=== PATIENT | female | born 1960 | race Caucasian/White ===

== ENCOUNTER 2017-11-17 14:27 | Observation (INO) | payer OTHER ==
[2017-11-17] MEDS ORDERED: THIAMINE 200 MG/2 ML INJ ONE (16:01)
[2017-11-17] MEDS ORDERED: FAMOTIDINE 20 MG/2 ML VIAL IV ONE (16:01)
[2017-11-17] MEDS ORDERED: FOLIC ACID 5 MG/ML VIAL ONE (16:02)
--- NOTE | 2017-11-17 16:08 | EKG ---
Test Date: 2017-11-17 Test Time: 15:30:39 [employer] Driver: NIKO MEASUREMENT RESULTS: Intervals: Rate: 66 MA: 168 QRSD: 102 QT: 466 QTc: 488 Butler: P: 29 MA: 168 QRS: 3 T: 48 INTERPRETIVE STATEMENTS: Normal sinus rhythm Possible Inferior infarct, age undetermined T wave abnormality, consider anterior ischemia Abnormal ECG Compared to ECG 03/22/2015 17:49:21 T-wave abnormality now present Possible ischemia now present Sinus arrhythmia no longer present Myocardial infarct finding still present Electronically Signed On 11-17-17 16:07:44 CDT by Claudy Leon
[2017-11-17 16:11] LABS: Absolute Lymphocytes (CBC) 1.4 K/uL (0.7-4.9); Absolute Monocytes 0.5 K/uL (0.1-1.3); Absolute Neutrophil 2.5 K/uL (1.8-8.0); Basophils % 1.3 % (0-1.3); Eosinophils % 2.6 % (0-4.4); Hematocrit 51.3 % (36.0-45.0); Lymphocytes % 30.1 % (15.3-44.8); MCH 32.5 pg (27.0-35.0); MCV 95.2 fL (80-100); MPV 9.1 fL (7.6-11.3); Monocytes % 11.6 % (3.3-12.3); RBC Red Blood Cell Count 5.39 M/uL (3.86-4.86)
[2017-11-17 16:18] LABS: Protime INR 1.07
--- NOTE | 2017-11-17 16:21 | RAD REPORT ---
EXAM DESCRIPTION: CT - Head Brain Wo Cont - 11/17/2017 4:14 pm CLINICAL HISTORY: Dizziness COMPARISON: 2013 TECHNIQUE: Computed axial tomography of the head was obtained. IV contrast was not requested. All CT scans are performed using dose optimization technique as appropriate and may include automated exposure control or mA/KV adjustment according to patient size. FINDINGS: An intracranial bleed is not seen . The ventricles are normal in caliber. No extra-axial fluid collection is noted. Fluid within the sinuses/ mastoids is not seen. IMPRESSION: No acute intracranial abnormality is seen. If patient's symptoms persist MRI of the bra in would be recommended.
--- NOTE | 2017-11-17 16:32 | RAD REPORT ---
EXAM DESCRIPTION: Niharika Single View11/17/2017 4:24 pm CLINICAL HISTORY: Cough COMPARISON: 2014 FINDINGS: The lungs appear clear of acute infiltrate. The heart is normal size IMPRESSION: No acute abnormalities displayed
[2017-11-17 16:47] LABS: Bicarbonate 24 mEq/L (21-31); CKMB Creatine Kinase MB 4.7 ng/ml (0.3-4.0); Lipase 41 U/L (22-51); Potassium 3.7 mEq/L (3.6-5.0); Sodium Level 135 mEq/L (135-145)
[2017-11-17 16:53] LABS: ALT/SGPT 57 IU/L (10-60); AST/SGOT 85 IU/L (10-42); Albumin 3.7 g/dL (3.2-5.5); Alkaline Phosphatase 71 IU/L (42-121); BUN Blood Urea Nitrogen 9 mg/dL (6-20); Bilirubin Direct 0.4 mg/dL (0-0.2); Bilirubin Total 1.6 mg/dL (0.3-1.2); Creatine Phosphokinase 249 IU/L (22-269); Magnesium 1.9 mg/dL (1.8-2.5); Protein, Total 8.4 g/dL (6.0-8.3)
[2017-11-17 16:59] LABS: Glucose Level 86 mg/dL (65-120)
[2017-11-17 17:00] LABS: Alcohol Serum/Plasma < 10 mg/dl
[2017-11-17] MEDS ORDERED: LACTULOSE 20 GM/30 ML UCUP ONE (17:39)
[2017-11-17 18:00] LABS: Urine Blood TRACE (NEG); Urine Glucose NEGATIVE (NEG); Urine Protein NEGATIVE (NEG); Urine Specific Gravity <1.005 (1.005-1.030); Urine pH 6.5 (5.0-7.0)
[2017-11-17] MEDS ORDERED: MORPHINE 4 MG/ML SYR ONE (18:01)
[2017-11-17] MEDS ORDERED: ONDANSETRON 4 MG/2 ML VIAL ONE (18:02)
[2017-11-17] MEDS ORDERED: LORazepam 2 MG/ML VIAL ONE (18:03)
[2017-11-17 18:05] LABS: Barbiturates NEGATIVE (NEGATIVE); Benzodiazepines NEGATIVE (NEGATIVE); Cocaine POSITIVE (NEGATIVE); METHAMPHETAM NEGATIVE (NEGATIVE); Opiates NEGATIVE (NEGATIVE); Phencyclidine NEGATIVE (NEGATIVE); THC Cannibis NEGATIVE (NEGATIVE)
[2017-11-17] MEDS ORDERED: ASPIRIN 81 MG CHEWABLE TABLET ONE (18:51)
[2017-11-17] MEDS ORDERED: CEFTRIAXONE/SWI 1gm 1 GM/10 ML SYR ONE (18:51)
--- NOTE | 2017-11-17 19:06 | ER ---
Nurse's Notes [facility] Name: Maisha Leo Age: 57 yrs Sex: Female : 1960 Arrival Date: 11/17/2017 Time: 14:51 Bed 7 Private MD: Diagnosis: Weakness;Abnormal electrocardiogram [ECG] [EKG];Unspecified cirrhosis of liver;Cocaine abuse Presentation: 11/17 15:12 Presenting complaint: Patient states: Dizziness since 1400 today. Hx fibromyalgia, CVA hb +left sided weakness and left facial droop. Transition of care: patient was not received from another setting of care. Onset of symptoms. Risk Assessment: Do you want to hurt yourself or someone else? Patient reports no desire to harm self or others. Care prior to arrival: None. 15:12 Method Of Arrival: Wheelchair hb 15:12 Acuity: ARTURO 3 hb 15:42 Initial Sepsis Screen: Does the patient meet any 2 criteria? No. Patient's initial tw2 sepsis screen is negative. Does the patient have a suspected source of infection? No. Patient's initial sepsis screen is negative. Historical: - Allergies: 15:14 PENICILLINS; hb - Home Meds: 15:39 lisinopril 20 mg oral tab once daily [Active]; Keppra 1,000 mg Oral tab 1 tab every 12 sg hours [Active]; levothyroxine oral [Active]; gabapentin oral oral [Active]; - PMHx: 15:36 CVA; Left sided weakness; Hypertension; Fibromyalgia; sg 15:39 Seizures; Myocardial infarction; Hypothyroidism; sg - Immunization history:: Adult Immunizations up to date. - Social history:: Smoking status: Patient uses tobacco products, smokes one pack cigarettes per day. - Ebola Screening: : No symptoms or risks identified at this time. - Family history:: not pertinent. Screenin:25 Abuse screen: Denies threats or abuse. Denies injuries from another. Nutritional sg screening: No deficits noted. Tuberculosis screening: No symptoms or risk factors identified. Never had TB. The patient has not been NPO before screening. The patient is alert, able to follow commands. The patient does not exhibit slurred or garbled speech The patient is not exhibiting difficulty speaking. The patient does not exhibit difficulty understanding words. The patient is able to swallow own secretions with no drooling or need for suction. Patient tolerated one teaspoon of water. No drooling, immediate coughing, gurgling, or clearing of the throat was noted. The patient tolerated 90mL of water. No drooling, immediate coughing, gurgling, or clearing of the throat was noted. The patient passed the bedside swallow screening. Oral medications may be given as ordered. Contact Physician for further diet orders. Fall Risk None identified. Assessment: 15:25 General: Appears in no apparent distress. comfortable, well groomed, well developed, sg well nourished, Behavior is calm, cooperative, appropriate for age. Pain: Denies pain. Neuro: Reports dizziness, since 1000 this morning, worsened at 1400 today chronic left sided weakness from previous CVA, denies worsening. . Denies weakness blurred vision headache. Cardiovascular: Heart tones S1 S2 present Capillary refill is brisk in bilateral fingers Patient's skin is warm and dry. Chest pain is denied. Respiratory: Airway is patent Respiratory effort is even, unlabored, Respiratory pattern is regular, symmetrical, Breath sounds are clear. GI: No signs and/or symptoms were reported involving the gastrointestinal system. : No signs and/or symptoms were reported regarding the genitourinary system. EENT: No signs and/or symptoms were reported regarding the EENT system. EENT: Reports broken tooth left upper side of mouth this morning while biting into an icecream bar. Derm: Skin is pink, warm \\T\\ dry. Musculoskeletal: Circulation, motion, and sensation intact. Range of motion: intact in all extremities, Reports weakness in left arm and left leg. 16:19 Reassessment: Patient appears in no apparent distress at this time. No changes from tw2 previously documented assessment. Patient and/or family updated on plan of care and expected duration. Pain level reassessed. Patient is alert, oriented x 3, equal unlabored respirations, skin warm/dry/pink. 17:29 Reassessment: Patient appears in no apparent distress at this time. No changes from tw2 previously documented assessment. Patient and/or family updated on plan of care and expected duration. Pain level reassessed. Patient is alert, oriented x 3, equal unlabored respirations, skin warm/dry/pink. 18:00 Reassessment: pt states "im going to need some ativan before i can go to MRI, they gave tw2 it to me the last 2 times i had one", provider notified. 18:08 Reassessment: pt taken to MRI at this time via stretcher. tw2 18:29 Reassessment: pt in MRI at this time, not available for VS or medications at this time. tw2 20:09 Reassessment: dr meyer at bedside examinng the patient. mg2 20:45 Reassessment: nurse Rekha said the recieiving nurse is still with the patient. she will mg2 call back. Vital Signs: 15:11 BP 113 / 82; Pulse 65; Resp 18; Temp 97.8; Pulse Ox 95% on R/A; Weight 81.65 kg; Height hb 5 ft. 5 in. (165.10 cm); Pain 10/10; 15:39 BP 97 / 71; Pulse 67 MON; Resp 17 S; Pulse Ox 96% on R/A; Pain 10/10; sg 16:20 BP 140 / 93; Pulse 70; Resp 18; Pulse Ox 96% on R/A; tw2 17:29 BP 131 / 99; Pulse 72; Resp 19; Pulse Ox 96% on R/A; tw2 18:57 BP 132 / 87; Pulse 69; Resp 17; Pulse Ox 95% on R/A; Pain 6/10; tw2 20:08 BP 111 / 75; Pulse 73; Resp 18; Pulse Ox 95% on R/A; Pain 0/10; cc 21:19 BP 121 / 82; Pulse 70; Resp 18; Temp 97.8; Pulse Ox 100% on R/A; Pain 0/10; mg2 15:11 Body Mass Index 29.95 (81.65 kg, 165.10 cm) hb 15:39 reports chornic entire body pain, d/t out of gabapentin for several days sg ED Course: 14:51 Patient arrived in ED. kk3 15:14 Triage completed. hb 15:14 Arm band placed on left wrist. hb 15:24 Mejia Juares MD is Attending Physician. godfrey 15:25 Patient has correct armband on for positive identification. Placed in gown. Bed in low sg position. Call light in reach. Side rails up X2. bus monitor on. Pulse ox on. NIBP on. Warm blanket given. Head of bed elevated. 15:25 Initial lab(s) drawn, by me, sent to lab. Inserted saline lock: 20 gauge in right sg antecubital area, using aseptic technique. Blood collected. 15:39 EKG done, by mold tooling technician. reviewed by Mejia Juares MD. sm3 15:42 Vane Hernández RN is Primary Nurse. tw2 16:[address] nj 16:13 CT Head Brain wo Cont In Process Unspecified. EDMS 16:13 CT completed. Patient tolerated procedure well. Patient moved back from CT. nj 16:23 X-ray completed. Portable x-ray completed in exam room. Patient tolerated procedure nj well. 16:24 XRAY Chest (1 view) In Process Unspecified. EDMS 18:00 Patient moved to MRI via stretcher. ka 18:38 MRI completed. Patient tolerated well. Patient moved back from MRI. ka 18:39 Brain Wo Cont MRI In Process Unspecified. EDMS 19:03 Vanda Weathers MD is Hospitalizing Provider. [facility] 19:04 Report given to AZIZA Salmon. tw2 21:21 No provider procedures requiring assistance completed. Patient admitted, IV remains in mg2 place. Administered Medications: 16:00 Drug: Pepcid 20 mg Route: IVP; Site: right antecubital; tw2 17:36 Follow up: Response: No adverse reaction tw2 16:02 Drug: Thiamine 100 mg Route: IV; Rate: bolus; Site: right antecubital; tw2 16:05 Drug: foLIC Acid 1 mg Route: IVPB; Site: right antecubital; tw2 17:45 Drug: Lactulose 30 grams Volume: 45 ml; Route: PO; tw2 18:07 Follow up: Response: No adverse reaction tw2 18:00 Drug: Zofran 4 mg Route: IVP; Site: right antecubital; tw2 18:56 Follow up: Response: No adverse reaction tw2 18:02 Drug: morphine 4 mg Route: IVP; Site: right antecubital; tw2 18:57 Follow up: Response: No adverse reaction; Pain is decreased tw2 18:06 Drug: Ativan 1 mg Route: IVP; Site: right antecubital; tw2 18:57 Follow up: Response: No adverse reaction tw2 18:50 Drug: Rocephin - (cefTRIAXone) 1 grams {Note: IVP available only from pharmacy, tw2 provider aware.} Route: IVPB; Infused Over: 5 mins; Site: right antecubital; 18:55 Follow up: Response: No adverse reaction; IV Status: Completed infusion tw2 18:50 Drug: Aspirin 162 mg Route: PO; tw2 18:57 Follow up: Response: No adverse reaction tw2 Point of Care Testing: Blood Glucose: 15:20 Blood Glucose: 73 mg/dL; hb Ranges: Outcome: 19:05 Decision to Hospitalize by Provider. godfrey 21:19 Admitted to Tele accompanied by tech, via wheelchair, room 417, with chart, Report mg2 called to Rekha 21:19 Condition: stable 21:19 Instructed on the need for admit, Demonstrated understanding of instructions, need for admission 21:27 Patient left the ED. [facility] [place] Signatures: Dispatcher [employer] EDMS Adalberto Lindsay, Mejia Arriaga RN, MD MD cha Christian, Chelsea cc Aguilera, Katelyn ka Baxter, Heather, RN RN Vane Hernández RN RN tw2 Lacey Avalos 3 Lucas Bui Michele, RN RN mg2 Lisa Tejeda 3
--- NOTE | 2017-11-17 19:06 | EDPHYS ---
Physician Documentation [facility] Name: Maisha Leo Age: 57 yrs Sex: Female : 1960 Arrival Date: 11/17/2017 Time: 14:51 Bed 7 Private MD: ED Physician Mejia Juares HPI: 11/17 15:56 This 57 yrs old Female presents to ER via Wheelchair with complaints of godfrey Dizziness, General Weakness. 15:56 The patient presents with dizziness, feeling faint, generalized weakness. Onset: The godfrey symptoms/episode began/occurred 1 week(s) ago. Context: occurred at home. Modifying factors: The symptoms are alleviated by nothing, the symptoms are aggravated by nothing. Associated signs and symptoms: The patient has no apparent associated signs or symptoms. Severity of symptoms: At their worst the symptoms were mild in the emergency department the symptoms are unchanged. Patient's baseline: Neuro: alert and fully oriented. The patient has experienced similar episodes in the past, a few times. Historical: - Allergies: 15:14 PENICILLINS; hb - Home Meds: 15:39 lisinopril 20 mg oral tab once daily [Active]; Keppra 1,000 mg Oral tab 1 tab every 12 sg hours [Active]; levothyroxine oral [Active]; gabapentin oral oral [Active]; - PMHx: 15:36 CVA; Left sided weakness; Hypertension; Fibromyalgia; sg 15:39 Seizures; Myocardial infarction; Hypothyroidism; sg - Immunization history:: Adult Immunizations up to date. - Social history:: Smoking status: Patient uses tobacco products, smokes one pack cigarettes per day. - Ebola Screening: : No symptoms or risks identified at this time. - Family history:: not pertinent. ROS: 15:56 Constitutional: Negative for fever, chills, and weight loss, Eyes: Negative for injury, godfrey pain, redness, and discharge, ENT: Negative for injury, pain, and discharge, Neck: Negative for injury, pain, and swelling, Cardiovascular: Negative for chest pain, palpitations, and edema, Respiratory: Negative for shortness of breath, cough, wheezing, and pleuritic chest pain, Abdomen/GI: Negative for abdominal pain, nausea, vomiting, diarrhea, and constipation, Back: Negative for injury and pain, : Negative for injury, bleeding, discharge, and swelling, MS/Extremity: Negative for injury and deformity, Skin: Negative for injury, rash, and discoloration, Psych: Negative for depression, anxiety, suicide ideation, homicidal ideation, and hallucinations, Allergy/Immunology: Negative for hives, rash, and allergies, Endocrine: Negative for neck swelling, polydipsia, polyuria, polyphagia, and marked weight changes, Hematologic/Lymphatic: Negative for swollen nodes, abnormal bleeding, and unusual bruising. 15:56 Neuro: Positive for dizziness, gait disturbance, weakness. Exam: 15:56 Constitutional: This is a well developed, well nourished patient who is awake, alert, godfrey and in no acute distress. Head/Face: Normocephalic, atraumatic. Eyes: Pupils equal round and reactive to light, extra-ocular motions intact. Lids and lashes normal. Conjunctiva and sclera are non-icteric and not injected. Cornea within normal limits. Periorbital areas with no swelling, redness, or edema. ENT: Nares patent. No nasal discharge, no septal abnormalities noted. Tympanic membranes are normal and external auditory canals are clear. Oropharynx with no redness, swelling, or masses, exudates, or evidence of obstruction, uvula midline. Mucous membranes moist. Neck: Trachea midline, no thyromegaly or masses palpated, and no cervical lymphadenopathy. Supple, full range of motion without nuchal rigidity, or vertebral point tenderness. No Meningismus. Chest/axilla: Normal chest wall appearance and motion. Nontender with no deformity. No lesions are appreciated. Cardiovascular: Regular rate and rhythm with a normal S1 and S2. No gallops, murmurs, or rubs. Normal PMI, no JVD. No pulse deficits. Respiratory: Lungs have equal breath sounds bilaterally, clear to auscultation and percussion. No rales, rhonchi or wheezes noted. No increased work of breathing, no retractions or nasal flaring. Abdomen/GI: Soft, non-tender, with normal bowel sounds. No distension or tympany. No guarding or rebound. No evidence of tenderness throughout. Back: No spinal tenderness. No costovertebral tenderness. Full range of motion. Female : Normal external genitalia. Skin: Warm, dry with normal turgor. Normal color with no rashes, no lesions, and no evidence of cellulitis. 17:34 Abdomen/GI: Rectal exam: rectal tone normal, Stool: normal, guaiac negative, [facility] hemorrhoid(s), are not appreciated, mass, is not appreciated, swelling, is not appreciated, tenderness, is not appreciated. Vital Signs: 15:11 BP 113 / 82; Pulse 65; Resp 18; Temp 97.8; Pulse Ox 95% on R/A; Weight 81.65 kg; Height hb 5 ft. 5 in. (165.10 cm); Pain 10/10; 15:39 BP 97 / 71; Pulse 67 MON; Resp 17 S; Pulse Ox 96% on R/A; Pain 10/10; sg 16:20 BP 140 / 93; Pulse 70; Resp 18; Pulse Ox 96% on R/A; tw2 17:29 BP 131 / 99; Pulse 72; Resp 19; Pulse Ox 96% on R/A; tw2 18:57 BP 132 / 87; Pulse 69; Resp 17; Pulse Ox 95% on R/A; Pain 6/10; tw2 20:08 BP 111 / 75; Pulse 73; Resp 18; Pulse Ox 95% on R/A; Pain 0/10; cc 21:19 BP 121 / 82; Pulse 70; Resp 18; Temp 97.8; Pulse Ox 100% on R/A; Pain 0/10; mg2 15:11 Body Mass Index 29.95 (81.65 kg, 165.10 cm) hb 15:39 reports chornic entire body pain, d/t out of gabapentin for several days sg MDM: 15:24 Patient medically screened. godfrey 15:58 Data reviewed: vital signs, nurses notes, lab test result(s), EKG, radiologic studies, [facility] CT scan, MRI, ultrasound. 11/17 15:23 Order name: Glucose, Ancillary Testing; Complete Time: 17:04 EDWA 11/17 15:54 Order name: Basic Metabolic Panel [facility] 11/17 15:54 Order name: BNP [facility] 11/17 15:54 Order name: CBC with Diff [facility] 11/17 15:54 Order name: Ckmb [facility] 11/17 15:54 Order name: CPK [facility] 11/17 15:54 Order name: LFT's [facility] 11/17 15:54 Order name: Magnesium [facility] 11/17 15:54 Order name: PT-INR; Complete Time: 17:04 [facility] 11/17 15:54 Order name: Ptt, Activated; Complete Time: 17:04 [facility] 11/17 15:54 Order name: Troponin (emerg Dept Use Only); Complete Time: 17:04 [facility] 11/17 15:54 Order name: Lipase; Complete Time: 17:04 [facility] 11/17 15:54 Order name: Acetaminophen; Complete Time: 17:04 [facility] 11/17 15:54 Order name: ETOH Level; Complete Time: 17:04 [facility] 11/17 15:54 Order name: XRAY Chest (1 view); Complete Time: 17:04 [facility] 11/17 15:54 Order name: CT Head Brain wo Cont; Complete Time: 17:04 [facility] 11/17 15:54 Order name: Salicylate; Complete Time: 17:04 [facility] 11/17 15:54 Order name: Urine Drug Screen; Complete Time: 19:01 [facility] 11/17 15:54 Order name: Brain Wo Cont MRI [facility] 11/17 15:55 Order name: AMMONIA; Complete Time: 17:04 [facility] 11/17 15:55 Order name: Basic Metabolic Panel; Complete Time: 17:04 [facility] 11/17 15:55 Order name: BNP B-Type Natriuretic Peptide; Complete Time: 17:33 [facility] 11/17 15:55 Order name: CBC with Automated Diff; Complete Time: 17:33 [facility] 11/17 15:55 Order name: CKMB Creatine Kinase MB; Complete Time: 17:04 [facility] 11/17 15:55 Order name: Creatine Phosphokinase; Complete Time: 17:04 [facility] 11/17 15:55 Order name: Liver (Hepatic) Function; Complete Time: 17:04 [facility] 11/17 15:55 Order name: Magnesium; Complete Time: 17:04 [facility] 11/17 17:28 Order name: Guiac; Complete Time: 18:16 11/17 17:54 Order name: Urine Dipstick--Ancillary (enter results); Complete Time: 18:12 11/17 18:15 Order name: Urine Culture [facility] 11/17 15:54 Order name: EKG; Complete Time: 15:55 [facility] 11/17 15:54 Order name: Cardiac monitoring; Complete Time: 15:56 [facility] 11/17 15:54 Order name: EKG - Nurse/Tech; Complete Time: 15:56 [facility] 11/17 15:54 Order name: IV Saline Lock; Complete Time: 15:56 [facility] 11/17 15:54 Order name: Labs collected and sent; Complete Time: 15:56 [facility] 11/17 15:54 Order name: O2 Per Protocol; Complete Time: 15:56 [facility] 11/17 15:54 Order name: O2 Sat Monitoring; Complete Time: 15:56 [facility] 11/17 15:54 Order name: Urine Dipstick-Ancillary (obtain specimen); Complete Time: 17:57 [facility] Administered Medications: 16:00 Drug: Pepcid 20 mg Route: IVP; Site: right antecubital; tw2 17:36 Follow up: Response: No adverse reaction tw2 16:02 Drug: Thiamine 100 mg Route: IV; Rate: bolus; Site: right antecubital; tw2 16:05 Drug: foLIC Acid 1 mg Route: IVPB; Site: right antecubital; tw2 17:45 Drug: Lactulose 30 grams Volume: 45 ml; Route: PO; tw2 18:07 Follow up: Response: No adverse reaction tw2 18:00 Drug: Zofran 4 mg Route: IVP; Site: right antecubital; tw2 18:56 Follow up: Response: No adverse reaction tw2 18:02 Drug: morphine 4 mg Route: IVP; Site: right antecubital; tw2 18:57 Follow up: Response: No adverse reaction; Pain is decreased tw2 18:06 Drug: Ativan 1 mg Route: IVP; Site: right antecubital; tw2 18:57 Follow up: Response: No adverse reaction tw2 18:50 Drug: Rocephin - (cefTRIAXone) 1 grams {Note: IVP available only from pharmacy, tw2 provider aware.} Route: IVPB; Infused Over: 5 mins; Site: right antecubital; 18:55 Follow up: Response: No adverse reaction; IV Status: Completed infusion tw2 18:50 Drug: Aspirin 162 mg Route: PO; tw2 18:57 Follow up: Response: No adverse reaction tw2 Point of Care Testing: Blood Glucose: 15:20 Blood Glucose: 73 mg/dL; hb Ranges: Critical Glucose Levels:Adult <50 mg/dl or >400 mg/dl <40 mg/dl or >180 mg/dl Disposition: 11/17/17 19:05 Hospitalization ordered by Vanda Weathers for Inpatient Admission. Preliminary diagnosis are Weakness, Abnormal electrocardiogram [ECG] [EKG], Unspecified cirrhosis of liver, Cocaine abuse. - Bed requested for Telemetry/MedSurg (Inpatient). - Status is Inpatient Admission. mg2 - Condition is Fair. - Problem is new. - Symptoms have improved. UTI on Admission? Yes Signatures: Dispatcher [employer] EDMS Rekha Call RN RN dw Adalberto Lindsay RN RN sg Mejia Juares MD MD [facility] Yvette Jiménez RN RN Vane Hernández RN RN tw2 Mychal Gunderson RN RN mg2 Corrections: (The following items were deleted from the chart) 19:37 19:05 Hospitalization Ordered by Vanda Weathers MD for Inpatient Admission. Preliminary diagnosis is Weakness; Abnormal electrocardiogram [ECG] [EKG]; Unspecified cirrhosis of liver; Cocaine abuse. Bed requested for Telemetry/MedSurg (Inpatient). Status is Inpatient Admission. Condition is Fair. Problem is new. Symptoms have improved. UTI on Admission? Yes. [facility] 21:27 19:37 11/17/2017 19:05 Hospitalization Ordered by Vanda Weathers MD for Inpatient mg2 Admission. Preliminary diagnosis is Weakness; Abnormal electrocardiogram [ECG] [EKG]; Unspecified cirrhosis of liver; Cocaine abuse. Bed requested for Telemetry/MedSurg (Inpatient). Status is Inpatient Admission. Condition is Fair. Problem is new. Symptoms have improved. UTI on Admission? Yes. dw
--- NOTE | 2017-11-17 20:03 | RAD REPORT ---
EXAM DESCRIPTION: MRI - Brain Wo Cont - 11/17/2017 6:42 pm CLINICAL HISTORY: Left-sided weakness, facial droop COMPARISON: CT head November 17 TECHNIQUE: Sagittal T1-weighted images were obtained along with axial PD, heavily T2-weighted and T2 -FLAIR images. Axial DWI and ADC mapping sequences were also obtained along with coronal heavily T2-w eighted images. FINDINGS: No intracranial hemorrhage, mass or acute infarction. There is no edema or shift of midlin e structures. No extra-axial fluid collections. Hurst-matter/white matter junction is preserved. Signa l voids are seen as a normal finding in the major intracranial vessels. Ventricles are normal. Minima l volume loss. Mild chronic ischemic change present. Migraine headache, vasculitis or demyelinization etiologies for the white matter signal abnormalities are not suspected. No globe or orbital content abnormality. Mastoid air cells and paranasal sinuses are clear. IMPRESSION: No infarction or other acute intracranial finding. Mild chronic ischemic change in the cerebral white matter.
--- NOTE | 2017-11-17 20:25 | P.HP ---
Certification for Inpatient Patient admitted to: Observation With expected LOS: <2 Midnights Practitioner: I am a practitioner with admitting privileges, knowledge of patient current condition, hospital course, and medical plan of care. Services: Services provided to patient in accordance with Admission requirements found in Title 42 Section 412.3 of the Code of Federal Regulations Patient History Date of Service: 11/17/17 Reason for admission: dizziness History of Present Illness: Ms Leo is a 57 years old woman with history of liver cirrhosis secondary to ETOH abuse and probably Hep C, tobacco abuse, seizure disorder, CVA, with residual 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 Her symptoms started last night, but today got worse. She was able to talk to her daughter, who lives in [place]. On the phone the patient had slurred speech, and her daughter called 911. EMS then arrived home and transferred the patient to ED. CT head shows no acute abnormalities, MRI brain report is pending. Lab work is remarkable for elevated ammonia level 107. She states that has not been taking lactulose lately. Toxicology screen was positive for cocaine, son said that she has been used it in the past, she is currently drinking 12 pack beers daily. No history of fever or chills. Allergies Penicillins Allergy (Intermediate, Verified 11/06/16 17:31) Anaphylaxis Home Medications: Levetiracetam [Keppra] 1 tab PO BID 6AM 6PM 02/09/14 Hydrocodone 5/APAP 325 [[place] 5/325*] 1 tab PO TIDP PRN #30 tab 02/11/14 Lisinopril [Prinivil*] 20 mg PO DAILY #30 tab 02/11/14 predniSONE [Prednisone*] 20 mg PO BID #30 tab 02/11/14 Aspirin [Aspir-Low] 1 tab PO DAILY 11/18/16 Gabapentin [Gralise] 900 mg PO TID 11/18/16 - Past Medical/Surgical History Diabetic: No -: Hypothyroidism -: HTN -: Anxiety -: Seizures -: HX NH x2 -: HX CVA x2 -: Osteoarthritis -: Hepatitis C -: liver cirrhosis -: Geovanny's paralysis Past Surgical History: Reviewed- Non-Contributory - Family History Family History: Reviewed- Non-Contributory - Social History Smoking Status: Heavy Tobacco smoker (>10 cigarettes/day) Counseled patient to stop smoking for: less than 10 minutes Smoking therapy provided: Yes Patient receptive to therapy: No Alcohol use: Yes CD- Drugs: No Caffeine use: Yes Place of Residence: Home Review of Systems 10-point ROS is otherwise unremarkable Physical Examination - Physical Exam General: Alert, In no apparent distress HEENT: Atraumatic, PERRLA, Mucous membr. moist/pink, EOMI, Sclerae nonicteric Neck: Supple, 2+ carotid pulse no bruit, No LAD, Without JVD or thyroid abnormality Respiratory: Clear to auscultation bilaterally, Normal air movement Cardiovascular: Regular rate/rhythm, Normal S1 S2 Gastrointestinal: Normal bowel sounds, No tenderness Musculoskeletal: No tenderness Integumentary: No rashes Neurological: Normal tone, Normal affect, Other (left facial drop, according to the family its worse than usual), Abnormal speech (slurred) Lymphatics: No axilla or inguinal lymphadenopathy - Studies Laboratory Data (last 24 hrs) 11/17/17 15:40: PT 12.6 H, INR 1.07, APTT 36.7 11/17/17 15:40: WBC 5.0, Hgb 17.5 H, Hct 51.3 H, Plt Count 155 11/17/17 15:40: B-Natriuretic Peptide 121 H 11/17/17 15:40: Sodium 135, Potassium 3.7, BUN 9, Creatinine 0.73, Glucose 86, Magnesium 1.9, Total Bilirubin 1.6 H, AST 85 H, ALT 57, Alkaline Phosphatase 71 , Lipase 41 Microbiology Data (last 24 hrs): 11/17/17 17:28 Stool Occult Blood - Final Assessment and Plan - Problems (Diagnosis) (1) Hepatic encephalopathy Current Visit: Yes Status: Acute (2) History of CVA (cerebrovascular accident) Current Visit: No Status: Acute (3) Hypothyroidism Current Visit: No Status: Acute Qualifiers: Hypothyroidism type: unspecified Qualified Code(s): E03.9 - Hypothyroidism , unspecified (4) Weakness generalized Current Visit: No Status: Acute (5) Cocaine abuse Current Visit: Yes Status: Acute (6) Alcohol abuse Current Visit: Yes Status: Acute (7) Tobacco abuse Current Visit: Yes Status: Acute - Plan #1 Hepatic encephalopathy: Will continue with lactulose by mouth. Continue awaiting Brain MRI report to R/O acute CVA superimpose. #2 seizure disorder: will order seizure precautions. Resume medication once verified. #3 alcohol abuse: will continue banana bag, watch for withdrawal symptoms. #4 tobacco abuse: therapy offered, she refused. - Advance Directives Does patient have a Living Will: No Does patient have a Durable POA for Healthcare: No - Code Status/Comfort Care Code Status Assessed: Yes Code Status: Full Code
[2017-11-17] MEDS ORDERED: ONDANSETRON 4 MG/2 ML VIAL IV PRN (21:48)
[2017-11-17] MEDS ORDERED: ACETAMINOPHEN 500 MG TAB PO PRN (21:48)
[2017-11-17] MEDS ORDERED: POTASSIUM 25 MEQ EFFERV TAB PO ONE (22:00)
[2017-11-18 00:58] VITALS: O2SAT 100
[2017-11-18 02:23] VITALS: BMI 30.6
[2017-11-18] MEDS: TRAMADOL HCL 50 MG TAB PO PRN ×2 (03:44→11:04)
[2017-11-18 04:44] LABS: Absolute Lymphocytes (CBC) 1.4 K/uL (0.7-4.9); Absolute Monocytes 0.4 K/uL (0.1-1.3); Absolute Neutrophil 1.9 K/uL (1.8-8.0); Basophils % 1.2 % (0-1.3); Hematocrit 45.1 % (36.0-45.0); Lymphocytes % 36.4 % (15.3-44.8); MCH 32.8 pg (27.0-35.0); MCV 94.4 fL (80-100); MPV 9.2 fL (7.6-11.3); Monocytes % 10.2 % (3.3-12.3); RBC Red Blood Cell Count 4.78 M/uL (3.86-4.86)
[2017-11-18 05:02] LABS: Albumin 3.2 g/dL (3.2-5.5); Bilirubin Total 1.4 mg/dL (0.3-1.2); Potassium 3.7 mEq/L (3.6-5.0); Protein, Total 7.5 g/dL (6.0-8.3)
[2017-11-18] MEDS ORDERED: POTASSIUM 25 MEQ EFFERV TAB PO ONE (05:17)
[2017-11-18] MEDS ORDERED: ENOXAPARIN 40 MG/0.4 ML SQ SCH (09:00)
[2017-11-18] MEDS ORDERED: LACTULOSE 20 GM/30 ML UCUP PO SCH (09:00)
[2017-11-18] MEDS ORDERED: FOLIC ACID 1 MG, MULTIVITAMINS INJ 10 ML, THIAMINE HCL 100 MG in NA CHLORIDE 0.9% 1,000 ML IV SCH (09:00)
[2017-11-18] MEDS ORDERED: CODEINE 30MG/APAP 300MG TAB PO PRN (09:35)
--- NOTE | 2017-11-18 11:21 | P.DS ---
Admission Date: 11/17/17 Discharge Date: 11/18/17 Disposition: ROUTINE DISCHARGE Discharge Condition: FAIR Reason for Admission: dizziness - Problems (1) Alcohol abuse Onset Date: 11/18/17 Current Visit: Yes Status: Acute (2) Cocaine abuse Onset Date: 11/18/17 Current Visit: Yes Status: Acute (3) Hepatic encephalopathy Onset Date: 11/18/17 Current Visit: Yes Status: Acute (4) Hypothyroidism Onset Date: 11/18/17 Current Visit: Yes Status: Acute Qualifiers: Hypothyroidism type: unspecified Qualified Code(s): E03.9 - Hypothyroidism , unspecified (5) Tobacco abuse Onset Date: 11/18/17 Current Visit: Yes Status: Acute (6) Hepatitis C Current Visit: No Status: Acute (7) History of CVA (cerebrovascular accident) Current Visit: No Status: Acute (8) Hypertension Current Visit: No Status: Acute (9) Osteoarthritis Current Visit: No Status: Acute (10) Seizures Current Visit: No Status: Acute Brief History of Present Illness: FROM H AND P Ms Leo is a 57 years old woman with history of liver cirrhosis secondary to ETOH abuse and probably Hep C, tobacco abuse, seizure disorder, CVA, with residual 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 Her symptoms started last night, but today got worse. She was able to talk to her daughter, who lives in [place]. On the phone the patient had slurred speech, and her daughter called 911. EMS then arrived home and transferred the patient to ED. CT head shows no acute abnormalities, MRI brain report is pending. Lab work is remarkable for elevated ammonia level 107. She states that has not been taking lactulose lately. Toxicology screen was positive for cocaine, son said that she has been used it in the past, she is currently drinking 12 pack beers daily. No history of fever or chills. Hospital Course: Patient is a 57-year-old female with past medical history of hepatitis with liver disease hypertension history of CVA seizure disorder who comes in with confusion in the context of cocaine use . Patient was found to have an elevated ammonia level and was not taking lactulose. CT scan of the head and MRI of the brain was done which were negative for acute stroke. Patient improved significantly with lactulose. Ammonia level normalized with treatment. She was counseled to continue using lactulose. She stated that she stopped taking it because it makes her have bowel movements. Her mental status improved back to baseline. Patient is able to ambulate with her cane without any difficulties. Patient's orthostatics vital signs were checked and were negative. Patient did not have any further symptoms. Patient was tolerating her diet. No nausea or vomiting. Patient was counseled extensively on smoking cessation and alcohol cessation. She understands that her chronic liver disease. Will worsen leading to liver cirrhosis. The patient has risk of morbidity and mortality related to her chronic liver issues. Patient instructed to follow up with GI doctor to have hepatitis-C treated. Patient voiced understanding. All questions answered. Vital Signs/Physical Exam: Temp Pulse Resp BP Pulse Ox 97.3 F 58 16 110/74 95 11/18/17 08:00 11/18/17 08:00 11/18/17 08:00 11/18/17 08:00 11/18/17 08:00 General: Alert, In no apparent distress, Oriented x3 HEENT: Atraumatic, PERRLA, EOMI Neck: Supple, JVD not distended Respiratory: Clear to auscultation bilaterally, Normal air movement Cardiovascular: No edema, Normal pulses, Regular rate/rhythm, Normal S1 S2 Gastrointestinal: Normal bowel sounds, Soft and benign, No tenderness Musculoskeletal: No clubbing, No tenderness Integumentary: No rashes, No erythema Neurological: Normal speech, Normal tone, Cranial nerves 3-12 intact, Normal affect Laboratory Data at Discharge: WBC 3.9 K/uL (4.3-10.9) L D 11/18/17 04:24 Hgb 15.7 g/dL (12.0-15.0) H 11/18/17 04:24 Hct 45.1 % (36.0-45.0) H 11/18/17 04:24 Plt Count 110 K/uL (152-406) L D 11/18/17 04:24 PT 12.6 SECONDS (9.5-12.5) H 11/17/17 15:40 INR 1.07 11/17/17 15:40 APTT 36.7 SECONDS (24.3-36.9) 11/17/17 15:40 Sodium 140 mEq/L (135-145) 11/18/17 04:24 Potassium 3.7 mEq/L (3.6-5.0) 11/18/17 04:24 BUN 10 mg/dL (6-20) 11/18/17 04:24 Creatinine 0.73 mg/dL (0.44-1.00) 11/18/17 04:24 Glucose 97 mg/dL (65-120) 11/18/17 04:24 Magnesium 1.9 mg/dL (1.8-2.5) 11/17/17 15:40 Total Bilirubin 1.4 mg/dL (0.3-1.2) H 11/18/17 04:24 AST 68 IU/L (10-42) H 11/18/17 04:24 ALT 48 IU/L (10-60) 11/18/17 04:24 Alkaline Phosphatase 60 IU/L (42-121) 11/18/17 04:24 B-Natriuretic Peptide 121 pg/ml (<=100) H 11/17/17 15:40 Lipase 41 U/L (22-51) 11/17/17 15:40 Home Medications: Lisinopril [Prinivil*] 20 mg PO DAILY #30 tab 02/11/14 Aspirin [Aspir-Low] 1 tab PO DAILY 11/18/16 Gabapentin [Gralise] 900 mg PO TID 11/18/16 Amlodipine Besylate 5 mg PO DAILY 11/17/17 Codeine/APAP [Tylenol #3*] 1 tab PO Q6HP PRN 11/17/17 Cyclobenzaprine HCl [Flexeril] 10 mg PO BID 11/17/17 Levetiracetam [Keppra] 500 mg PO BID 11/17/17 Levothyroxine [Synthroid*] 0.075 mg PO DAILY 11/17/17 Metoprolol Tartrate [Lopressor*] 50 mg PO BID 11/17/17 Lactulose [Cephulac*] 30 ml PO TID #90 ucup 11/18/17 New Medications: Lactulose [Cephulac*] 30 ml PO TID #90 ucup Patient Discharge Instructions: f/up w PCP in 2-3 days. Stop drinking etoh. AA rehab. Return to ER for worsening condition. Establish care w GI for liver treatment Diet: Low sodium (1500 ml fluid restriction) Activity: Fall precautions
[2017-11-18 11:29] VITALS: BP 122/87; TEMP 97.4
[2017-11-18] MEDS ORDERED: METOPROLOL TAR 50 MG TAB PO SCH (21:00)
[2017-11-18] MEDS ORDERED: levETIRAcetam 500 MG TAB PO SCH (21:00)
[2017-11-19] MEDS ORDERED: LEVOTHYROXINE SOD 0.075 MG TAB PO SCH (06:30)
[2017-11-19] MEDS ORDERED: LISINOPRIL 20 MG TAB PO SCH (09:00)
[2017-11-19] MEDS ORDERED: ASPIRIN EC 81 MG TAB PO SCH (09:00)
[2017-11-19] MEDS ORDERED: AMLODIPINE 5 MG TAB PO SCH (09:00)
== END 2017-11-18 12:22 | disposition home or self-care (01) ==
LOC: ER 14:27 → ERHOLD 19:08 → 4TH 20:41
PROVIDERS: ADMIT Internal Medicine; ATTEND Internal Medicine
DX: F14.10 Cocaine abuse, uncomplicated (principal); F10.10 Alcohol abuse, uncomplicated; G40.909 Epilepsy, unspecified, not intractable, without status epilepticus; F17.210 Nicotine dependence, cigarettes, uncomplicated; I69.354 Hemiplegia and hemiparesis following cerebral infarction affecting left non-dominant side; B18.2 Chronic viral hepatitis C; K72.00 Acute and subacute hepatic failure without coma; E03.9 Hypothyroidism, unspecified; I10 Essential (primary) hypertension; M19.90 Unspecified osteoarthritis, unspecified site
CPT/HCPCS: 36415; 70450; 70551; 71045; 80048; 80053; 80076; 80307; 80320; 80329; 81003; 82140; 82272; 82550; 82553; 82962; 83690; 83735; 83880; 84484; 85025; 85610; 85730; 87086; 87088; 93005; 96374; 96375; 99285; G0378; J0696; J1650; J2405; J3411; J7030

== ENCOUNTER 2017-11-28 15:21 | Emergency (ER) | payer OTHER ==
[2017-11-28] MEDS ORDERED: NA CHLORIDE 0.9% 1,000 ML ONE ×2 (15:41→17:38)
[2017-11-28 15:57] LABS: Absolute Lymphocytes (CBC) 2.4 K/uL (0.7-4.9); Absolute Monocytes 0.6 K/uL (0.1-1.3); Absolute Neutrophil 3.6 K/uL (1.8-8.0); Basophils % 1.1 % (0-1.3); MCH 32.9 pg (27.0-35.0); MCV 95.3 fL (80-100); MPV 9.5 fL (7.6-11.3); Monocytes % 9.2 % (3.3-12.3); RBC Red Blood Cell Count 4.83 M/uL (3.86-4.86)
[2017-11-28 16:00] LABS: Protime INR 1.1
--- NOTE | 2017-11-28 16:01 | RAD REPORT ---
EXAM DESCRIPTION: RAD - Ankle Right 3 View - 11/28/2017 3:54 pm CLINICAL HISTORY: PAIN Trauma, swelling COMPARISON: No comparisons FINDINGS: Soft tissue swelling is seen along the lateral malleolus. Bony fragmentation inferior to t he medial malleolus seen, likely related to previous trauma. Tiny calcaneal spur seen. No acute fract ure or dislocation.
[2017-11-28 16:38] LABS: Albumin 3.2 g/dL (3.4-5.0); Bilirubin Direct 0.4 mg/dL (0-0.2); Bilirubin Total 1.1 mg/dL (0.2-1.0); Potassium 3.7 mmol/L (3.5-5.1); Protein, Total 8.3 g/dL (6.4-8.2)
--- NOTE | 2017-11-28 17:31 | EKG ---
Test Date: 2017-11-28 Test Time: 15:46:43 Aerodynamics Professor: NIKO MEASUREMENT RESULTS: Intervals: Rate: 81 KS: 190 QRSD: 94 QT: 414 QTc: 480 [place]: P: 60 KS: 190 QRS: -8 T: 75 INTERPRETIVE STATEMENTS: Normal sinus rhythm Possible Inferior infarct, age undetermined Abnormal ECG Compared to ECG 11/17/2017 15:30:39 T-wave abnormality no longer present Possible ischemia no longer present Myocardial infarct finding still present Electronically Signed On 11-28-17 17:30:05 CDT by Aron Howard
[2017-11-28 18:03] LABS: Barbiturates NEGATIVE (NEGATIVE); Benzodiazepines NEGATIVE (NEGATIVE); Cocaine POSITIVE (NEGATIVE); METHAMPHETAM NEGATIVE (NEGATIVE); Methadone NEGATIVE (NEGATIVE); Opiates NEGATIVE (NEGATIVE); Phencyclidine NEGATIVE (NEGATIVE); THC Cannibis NEGATIVE (NEGATIVE)
[2017-11-28 18:06] LABS: Urine Blood TRACE (NEG); Urine Glucose NEGATIVE (NEG); Urine Protein NEGATIVE (NEG); Urine pH 5.5 (5.0-7.0)
[2017-11-28 18:10] LABS: Urine Bacteria 20-50 /HPF (<20); Urine Culture Reflex Order REFLEXED; Urine RBC <5 /HPF (NONE SEEN)
[2017-11-28 18:11] LABS: Urine Trichomonas PRESENT (NONE SEEN)
--- NOTE | 2017-11-28 18:16 | ER ---
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 Transition of care: patient was not received from another setting of care. Onset of symptoms was November 28, 2017. Risk Assessment: Do you want to hurt yourself or someone else? Patient reports no desire to harm self or others. Initial Sepsis Screen: Does the patient meet any 2 criteria? No. Patient's initial sepsis screen is negative. Does the patient have a suspected source of infection? No. Patient's initial sepsis screen is negative. Care prior to arrival: None. 15:28 Method Of Arrival: EMS: [facility] 15:28 Acuity: ARTURO 3 hj Triage Assessment: 15:32 General: Appears in no apparent distress. uncomfortable, Behavior is calm, cooperative, hj appropriate for age. Pain: Complains of pain in anterior aspect of right ankle. EENT: No signs and/or symptoms were reported regarding the EENT system. Neuro: Level of Consciousness is awake, alert, obeys commands, Oriented to person, place, time, situation, Appropriate for age. Cardiovascular: Capillary refill < 3 seconds Patient's skin is warm and dry. Respiratory: Airway is patent Respiratory effort is even, unlabored, Respiratory pattern is regular, symmetrical. GI: No signs and/or symptoms were reported involving the gastrointestinal system. : No signs and/or symptoms were reported regarding the genitourinary system. Derm: No signs and/or symptoms reported regarding the dermatologic system. Musculoskeletal: No signs and/or symptoms reported regarding the musculoskeletal system. Historical: - Allergies: 15:32 PENICILLINS; hj - Home Meds: 15:32 gabapentin Oral [Active]; Keppra 1,000 mg Oral Tb24 1 tab every 12 hours [Active]; hj levothyroxine oral [Active]; lisinopril 20 mg Oral Tb24 once daily [Active]; - PMHx: 15:32 CVA; Left sided weakness; Fibromyalgia; Hypertension; Hypothyroidism; Myocardial hj infarction; Seizures; - PSHx: 15:32 Unable to obtain; hj - Immunization history:: Adult Immunizations unknown. - Social history:: Smoking status: Patient uses tobacco products, Patient/guardian denies using alcohol. - Ebola Screening: : Patient negative for fever greater than or equal to 101.5 degrees Fahrenheit, and additional compatible Ebola Virus Disease symptoms Patient denies exposure to infectious person Patient denies travel to an Ebola-affected area in the 21 days before illness onset. Screenin:33 Abuse screen: Denies threats or abuse. Denies injuries from another. Nutritional hj screening: No deficits noted. Tuberculosis screening: No symptoms or risk factors identified. Fall Risk Fall in past 12 months (25 points). Assessment: 15:34 Reassessment: see triage assessment;. hj 16:30 Reassessment: Patient and/or family updated on plan of care and expected duration. Pain hj level reassessed. Patient is alert, oriented x 3, equal unlabored respirations, skin warm/dry/pink. family in room requesting SS consult; awaiting results and POC;. 17:11 Reassessment: Patient and/or family updated on plan of care and expected duration. Pain hj level reassessed. Patient is alert, oriented x 3, equal unlabored respirations, skin warm/dry/pink. awaiting POC;. 18:10 Reassessment: Patient and/or family updated on plan of care and expected duration. Pain hj level reassessed. Patient is alert, oriented x 3, equal unlabored respirations, skin warm/dry/pink. awaiting POC;. Vital Signs: 15:34 BP 92 / 60; Pulse 82; Resp 18; Temp 98.1(O); Pulse Ox 93% on R/A; Weight 86.18 kg; hj Height 5 ft. 5 in. (165.10 cm); Pain 10/10; 16:41 BP 99 / 70; Pulse 83; Resp 18; Pulse Ox 95% on 2 lpm NC; hj 17:11 BP 94 / 65; Pulse 82; Resp 18; Pulse Ox 96% on 2 lpm NC; hj 18:10 BP 98 / 69; Pulse 77; Resp 18; Pulse Ox 96% on R/A; hj 18:28 BP 115 / 69; Pulse 82; Resp 18; Pulse Ox 97% on R/A; hj 15:34 Body Mass Index 31.62 (86.18 kg, 165.10 cm) hj ED Course: 15:28 Patient arrived in ED. hj 15:29 Dk Tan PA is PHCP. jr8 15:29 Michael Faith MD is Attending Physician. jr8 15:30 Triage completed. hj 15:33 Arm band placed on right wrist. hj 15:33 Patient has correct armband on for positive identification. Placed in gown. Bed in low hj position. Call light in reach. Side rails up X2. 15:36 Braulio Landry RN is Primary Nurse. hj 15:53 X-ray completed. Portable x-ray completed in exam room. Patient tolerated procedure kc2 well. 15:54 XRAY Ankle RIGHT 3 view In Process Unspecified. EDMS 15:58 Initial lab(s) drawn, by ED staff, sent to lab. Inserted saline lock: 20 gauge in right hj antecubital area, using aseptic technique. ,using aseptic technique. AZIZA Miranda Blood collected. 16:09 EKG done, by industrial controls technician. reviewed by Dk AMARAL. [facility] 17:48 Urine Drug Screen Sent. 17:48 Urine Dipstick--Ancillary (enter results) Sent. hj 17:48 Urine Microscopic Only Sent. hj 18:28 No provider procedures requiring assistance completed. IV discontinued, intact, hj bleeding controlled, No redness/swelling at site. Pressure dressing applied. Administered Medications: 15:37 Drug: NS 0.9% 1000 ml Route: IV; Rate: 1000 ml; Site: right antecubital; hj 18:29 Follow up: IV Status: Completed infusion hj 17:35 Drug: NS 0.9% 1000 ml Route: IV; Rate: 1000 ml; Site: right antecubital; hj 18:29 Follow up: IV Status: Completed infusion hj 18:17 Drug: Flagyl 2 grams Route: PO; hj 18:23 Follow up: Response: No adverse reaction hj Outcome: 18:15 Discharge ordered by . jr8 18:28 Discharged to home via wheelchair, with family. 18:28 Condition: stable 18:28 Discharge instructions given to patient, family, Instructed on discharge instructions, follow up and referral plans. Demonstrated understanding of instructions, follow-up care. 18:40 Patient left the ED. Addendum: 12/04/2017 09:34 Addendum: Culture Results: Positive urine culture. Patient was not prescribed i w antibiotics at discharge. Report given to ROBSON for further evaluation and then to plastic parts fabricator trimmer for follow up with patient. Phone call Attempt #1 pt has not UTI symptoms, no further action needed. Signatures: Dispatcher [employer] EDMS Maria Dolores William, RN RN Dk Wallis PA PA jr8 Braulio Landry RN RN hj Carr, Kelsie kc Lisa Tejeda 3
--- NOTE | 2017-11-28 18:16 | EDPHYS ---
Physician Documentation [facility] Name: Maisha Leo Age: 57 yrs Sex: Female : 1960 Arrival Date: 11/28/2017 Time: 15:28 Bed 2 Private MD: ED Physician Michael Faith HPI: 11/28 16:02 This 57 yrs old Female presents to ER via EMS with complaints of Ankle jr8 Swelling. 16:02 The patient presents with pain, swelling, tenderness. The complaints affect the right jr8 ankle. Onset: The symptoms/episode began/occurred acutely, today. Context: The problem was sustained outdoors, resulted from the patient falling. Associated signs and symptoms: The patient has no apparent associated signs or symptoms. Modifying factors: The symptoms are alleviated by nothing, the symptoms are aggravated by weight bearing, movement. Severity of symptoms: At their worst the symptoms were mild, in the emergency department the symptoms are unchanged. The patient has not experienced similar symptoms in the past. The patient has not recently seen a physician. EMS stated that daughter had been trying to find her for 48 hours. Stated that [place] with another gentleman drinking for the past two days. Stated that she had fell and twisted ankle. Blood pressure low upon arrival . Historical: - Allergies: 15:32 PENICILLINS; hj - Home Meds: 15:32 gabapentin Oral [Active]; Keppra 1,000 mg Oral Tb24 1 tab every 12 hours [Active]; hj levothyroxine oral [Active]; lisinopril 20 mg Oral Tb24 once daily [Active]; - PMHx: 15:32 CVA; Left sided weakness; Fibromyalgia; Hypertension; Hypothyroidism; Myocardial hj infarction; Seizures; - PSHx: 15:32 Unable to obtain; hj - Immunization history:: Adult Immunizations unknown. - Social history:: Smoking status: Patient uses tobacco products, Patient/guardian denies using alcohol. - Ebola Screening: : Patient negative for fever greater than or equal to 101.5 degrees Fahrenheit, and additional compatible Ebola Virus Disease symptoms Patient denies exposure to infectious person Patient denies travel to an Ebola-affected area in the 21 days before illness onset. ROS: 16:02 Eyes: Negative for injury, pain, redness, and discharge, ENT: Negative for injury, jr8 pain, and discharge, Neck: Negative for injury, pain, and swelling, Cardiovascular: Negative for chest pain, palpitations, and edema, Respiratory: Negative for shortness of breath, cough, wheezing, and pleuritic chest pain, Abdomen/GI: Negative for abdominal pain, nausea, vomiting, diarrhea, and constipation, Back: Negative for injury and pain, Skin: Negative for injury, rash, and discoloration, Neuro: Negative for headache, weakness, numbness, tingling, and seizure. 16:02 MS/extremity: Positive for pain, swelling, tenderness, of the right ankle . Exam: 16:02 Eyes: Pupils equal round and reactive to light, extra-ocular motions intact. Lids and jr8 lashes normal. Conjunctiva and sclera are non-icteric and not injected. Cornea within normal limits. Periorbital areas with no swelling, redness, or edema. ENT: Nares patent. No nasal discharge, no septal abnormalities noted. Tympanic membranes are normal and external auditory canals are clear. Oropharynx with no redness, swelling, or masses, exudates, or evidence of obstruction, uvula midline. Mucous membranes moist. Neck: Trachea midline, no thyromegaly or masses palpated, and no cervical lymphadenopathy. Supple, full range of motion without nuchal rigidity, or vertebral point tenderness. No Meningismus. Cardiovascular: Regular rate and rhythm with a normal S1 and S2. No gallops, murmurs, or rubs. Normal PMI, no JVD. No pulse deficits. Respiratory: Lungs have equal breath sounds bilaterally, clear to auscultation and percussion. No rales, rhonchi or wheezes noted. No increased work of breathing, no retractions or nasal flaring. Abdomen/GI: Soft, non-tender, with normal bowel sounds. No distension or tympany. No guarding or rebound. No evidence of tenderness throughout. Back: No spinal tenderness. No costovertebral tenderness. Full range of motion. Skin: Warm, dry with normal turgor. Normal color with no rashes, no lesions, and no evidence of cellulitis. Neuro: Awake and alert, GCS 15, oriented to person, place, time, and situation. Cranial nerves II-XII grossly intact. Motor strength 5/5 in all extremities. Sensory grossly intact. Cerebellar exam normal. Normal gait. 16:02 Musculoskeletal/extremity: Extremities: grossly normal except: noted in the right ankle: pain, swelling, tenderness, ROM: intact in all extremities, full active range of motion, in all extremities, full passive range of motion, in all extremities, limited active range of motion due to pain, in the right ankle, limited passive range of motion due to pain, in the right ankle, Circulation is intact in all extremities. Sensation intact. Vital Signs: 15:34 BP 92 / 60; Pulse 82; Resp 18; Temp 98.1(O); Pulse Ox 93% on R/A; Weight 86.18 kg; hj Height 5 ft. 5 in. (165.10 cm); Pain 10/10; 16:41 BP 99 / 70; Pulse 83; Resp 18; Pulse Ox 95% on 2 lpm NC; hj 17:11 BP 94 / 65; Pulse 82; Resp 18; Pulse Ox 96% on 2 lpm NC; hj 18:10 BP 98 / 69; Pulse 77; Resp 18; Pulse Ox 96% on R/A; hj 18:28 BP 115 / 69; Pulse 82; Resp 18; Pulse Ox 97% on R/A; hj 15:34 Body Mass Index 31.62 (86.18 kg, 165.10 cm) MDM: 15:29 Patient medically screened. jr8 18:14 Data reviewed: vital signs, nurses notes, lab test result(s), EKG, radiologic studies, jr plain films, and as a result, I will discharge patient. Data interpreted: Pulse oximetry: on room air is 96 %. Interpretation: normal. Counseling: I had a detailed discussion with the patient and/or guardian regarding: the historical points, exam findings, and any diagnostic results supporting the discharge/admit diagnosis, lab results, radiology results, the need for outpatient follow up, a family practitioner, to return to the emergency department if symptoms worsen or persist or if there are any questions or concerns that arise at home. Response to treatment: the patient's symptoms have markedly improved after treatment, patient is well hydrated. 11/28 15:36 Order name: Basic Metabolic Panel; Complete Time: 16:52 8 11/28 15:36 Order name: CBC with Diff; Complete Time: 16:02 8 11/28 15:36 Order name: ETOH Level; Complete Time: 16:52 8 11/28 15:36 Order name: Hepatic Function; Complete Time: 16:52 11/28 15:36 Order name: PT-INR; Complete Time: 16:12 11/28 15:36 Order name: Urine Drug Screen; Complete Time: 18:03 11/28 15:36 Order name: CK; Complete Time: 16:52 11/28 15:36 Order name: XRAY Ankle RIGHT 3 view; Complete Time: 16:02 [facility] 11/28 17:31 Order name: Urine Microscopic Only; Complete Time: 18:16 iw 11/28 17:41 Order name: Urine Dipstick--Ancillary (enter results); Complete Time: 18:16 sp 11/28 18:12 Order name: Urine Culture EDIL 11/28 15:36 Order name: EKG; Complete Time: 15:37 [facility] 11/28 15:36 Order name: EKG - Nurse/Tech; Complete Time: 15:46 11/28 15:36 Order name: IV Saline Lock; Complete Time: 15:57 [facility] 11/28 15:36 Order name: Labs collected and sent; Complete Time: 15:58 [facility] 11/28 15:36 Order name: Urine Dipstick-Ancillary (obtain specimen); Complete Time: 17:33 Administered Medications: 15:37 Drug: NS 0.9% 1000 ml Route: IV; Rate: 1000 ml; Site: right antecubital; hj 18:29 Follow up: IV Status: Completed infusion hj 17:35 Drug: NS 0.9% 1000 ml Route: IV; Rate: 1000 ml; Site: right antecubital; hj 18:29 Follow up: IV Status: Completed infusion hj 18:17 Drug: Flagyl 2 grams Route: PO; hj 18:23 Follow up: Response: No adverse reaction hj Disposition: 18:42 Co-signature as Attending Physician, Michael Faith MD. rn Disposition: 11/28/17 18:15 Discharged to Home. Impression: Dehydration, Alcohol abuse with intoxication, unspecified, Drug abuse counseling and surveillance. - Condition is Stable. - Discharge Instructions: Alcohol and Drug Addiction, Finding Treatment, Alcohol Intoxication, Dehydration, Adult. - Medication Reconciliation Form, Thank You Letter, Antibiotic Education, Prescription Opioid Use form. - Follow up: Private Physician; When: 2 - 3 days; Reason: Recheck today's complaints, Continuance of care, Re-evaluation by your physician. - Problem is new. - Symptoms have improved. Signatures: Dispatcher [employer] EDMS Michael Faith MD MD rn Roszak, Josh, PA PA jr8 Braulio Landry RN RN hj Corrections: (The following items were deleted from the chart) 18:40 18:15 11/28/2017 18:15 Discharged to Home. Impression: Dehydration; Alcohol abuse with hj intoxication, unspecified; Drug abuse counseling and surveillance. Condition is Stable. Forms are Medication Reconciliation Form, Thank You Letter, Antibiotic Education, Prescription Opioid Use. Follow up: Private Physician; When: 2 - 3 days; Reason: Recheck today's complaints, Continuance of care, Re-evaluation by your physician. Problem is new. Symptoms have improved. jr8
[2017-11-28] MEDS ORDERED: metroNIDAZOLE 500 MG TABLET ONE (18:20)
[2017-11-28 20:02] VITALS: TEMP 98.1
[2017-11-28 20:06] VITALS: BP 115/69; O2SAT 97
== END 2017-11-28 18:40 | disposition home or self-care (01) ==
LOC: ER 15:21
DX: E86.0 Dehydration (principal); F10.129 Alcohol abuse with intoxication, unspecified; Z71.51 Drug abuse counseling and surveillance of drug abuser; Z72.0 Tobacco use; I10 Essential (primary) hypertension; E03.9 Hypothyroidism, unspecified; I25.2 Old myocardial infarction; G40.909 Epilepsy, unspecified, not intractable, without status epilepticus; Z88.0 Allergy status to penicillin
CPT/HCPCS: 36415; 80048; 80076; 80307; 80320; 81003; 81015; 82550; 85025; 85610; 87077; 87086; 87088; 87186; 93005; 96360; 96361; 99284; J7030

== ENCOUNTER 2019-03-27 13:24 | Emergency (ER) | payer OTHER ==
[2019-03-27] MEDS ORDERED: NA CHLORIDE 0.9% 1,000 ML ONE (13:47)
[2019-03-27] MEDS ORDERED: ACETAMINOPHEN 500 MG TAB ONE (13:47)
[2019-03-27] MEDS ORDERED: levETIRAcetam 500 MG TAB ONE (13:47)
[2019-03-27 14:11] LABS: Absolute Lymphocytes (CBC) 0.7 K/uL (0.7-4.9); Basophils % 2.6 % (0-1.3); Hematocrit 41.8 % (36.0-45.0); Lymphocytes % 24.5 % (15.3-44.8); MPV 8.2 fL (7.6-11.3); RBC Red Blood Cell Count 4.17 M/uL (3.86-4.86)
[2019-03-27 14:29] LABS: Potassium 3.4 mmol/L (3.5-5.1)
--- NOTE | 2019-03-27 14:36 | ER ---
Nurse's Notes [facility] Name: Maisha Leo Age: 58 yrs Sex: Female : 1960 Arrival Date: 03/27/2019 Time: 13:29 Bed 7 Private MD: Diagnosis: Epilepsy and recurrent seizures Presentation: 03/27 13:29 Presenting complaint: EMS states: Pt is staying at [facility], staff reports hb seizure activity x 2 today. Hx of seizures. Pt reports she has been under a lot of stress lately and her fibromyalgia pain has flared up, was outdoors all day today, took morning meds today. On Keflex Day 5 for UTI. Transition of care: patient was not received from another setting of care. Onset of symptoms was March 27, 2019. Risk Assessment: Do you want to hurt yourself or someone else? Patient reports no desire to harm self or others. Initial Sepsis Screen: Does the patient meet any 2 criteria? No. Patient's initial sepsis screen is negative. Does the patient have a suspected source of infection? No. Patient's initial sepsis screen is negative. Care prior to arrival: None. 13:29 Method Of Arrival: EMS: [facility] 13:29 Acuity: ARTURO 3 hb Historical: - Allergies: 13:36 PENICILLINS; hb - Home Meds: 13:36 gabapentin 300 mg Oral cap 3 times per day [Active]; Keppra 500 mg Oral tab 2 times per hb day [Active]; levothyroxine oral [Active]; lisinopril 20 mg Oral Tb24 once daily [Active]; meloxicam 15 mg oral tab 1 tab once daily [Active]; amlodipine 5 mg tab 1 tab once daily [Active]; pantoprazole 40 mg oral TbEC once daily [Active]; cyclobenzaprine 10 mg Oral tab [Active]; levetiracetam 300 mg oral tab once daily [Active]; quetiapine 25 mg oral tab [Active]; ProAir HFA 90 mcg/actuation inhalation HFAA [Active]; - PMHx: 13:36 ADD/ADHD; CVA; Left sided weakness; Fibromyalgia; Hypertension; Hypothyroidism; hb Myocardial infarction; Seizures; - Immunization history:: Adult Immunizations up to date. - Social history:: Smoking status: Patient uses tobacco products, smokes one-half pack cigarettes per day. - Ebola Screening: : No symptoms or risks identified at this time. Screenin:38 Abuse screen: Denies threats or abuse. Denies injuries from another. Nutritional hb screening: No deficits noted. Tuberculosis screening: No symptoms or risk factors identified. Fall Risk Total Anderson Fall Scale indicates Low Risk Score (25-44 pts). Fall prevention measures have been instituted. Side Rails Up X 2 Frequent Obs/Assesments occuring As available Patient and Family Educated on Fall Prevention Program and strategies. Assessment: 13:38 General: Appears in no apparent distress. Behavior is calm, cooperative. Pain: Pain hb currently is 10 out of 10 on a pain scale. Neuro: Level of Consciousness is awake, alert, obeys commands, Oriented to person, place, time, situation. Cardiovascular: Capillary refill < 3 seconds Patient's skin is warm and dry. Respiratory: Airway is patent Respiratory effort is even, unlabored, Respiratory pattern is regular, symmetrical, Breath sounds are clear bilaterally. GI: No signs and/or symptoms were reported involving the gastrointestinal system. : No signs and/or symptoms were reported regarding the genitourinary system. EENT: No signs and/or symptoms were reported regarding the EENT system. Derm: Skin is pink, warm \T\ dry. Musculoskeletal: No signs and/or symptoms reported regarding the musculoskeletal system. 13:41 Reassessment: Son Walter [phone]. hb 14:40 Reassessment: Patient appears in no apparent distress at this time. hb Vital Signs: 13:37 BP 118 / 83; Pulse 82; Resp 16; Temp 97.8; Pulse Ox 100% on R/A; Weight 81.65 kg; hb Height 5 ft. 5 in. (165.10 cm); Pain 10/10; 13:37 Body Mass Index 29.95 (81.65 kg, 165.10 cm) hb Franklin Coma Score: 13:39 Eye Response: spontaneous(4). Verbal Response: oriented(5). Motor Response: obeys hb commands(6). Total: 15. ED Course: 13:29 Patient arrived in ED. hb 13:30 Ruben Bradshaw MD is Attending Physician. gs 13:31 Triage completed. hb 13:37 Arm band placed on. hb 13:38 Patient has correct armband on for positive identification. Bed in low position. Call hb light in reach. Side rails up X2. Seizure precautions initiated. 13:40 Yvette Jiménez RN is Primary Nurse. hb 13:50 Missed attempt(s): 20 gauge in right antecubital area. Bleeding controlled, band aid hb applied, catheter tip intact. 14:04 Inserted saline lock: 22 gauge in right wrist, using aseptic technique. Blood collected.hb Administered Medications: 13:44 Drug: Keppra 1000 mg Route: PO; hb 13:45 Drug: NS 0.9% 1000 ml Route: IV; Rate: 1 bolus; Site: right forearm; hb Outcome: 14:36 Discharge ordered by . nelida 15:42 Patient left the ED. hb Signatures: Yvette Jiménez RN RN hb Starr, Gregory, MD MD Corrections: (The following items were deleted from the chart) 13:37 13:29 Presenting complaint: EMS states: Pt is staying at [facility], staff reports hb seizure activity x 2 today. Hx of seizures. Pt reports she has been under a lot of stress lately and her fibromyalgia pain has flared up, took morning meds today. hb
--- NOTE | 2019-03-27 14:37 | EDPHYS ---
Physician Documentation [facility] Name: Maisha Leo Age: 58 yrs Sex: Female : 1960 Arrival Date: 03/27/2019 Time: 13:29 Bed 7 Private MD: ED Physician Ruben Bradshaw HPI: 03/27 16:52 This 58 yrs old Female presents to ER via EMS with complaints of Seizure. gs 16:52 The patient presents after having a single isolated seizure. Character of seizure(s): gs Motor activity: generalized. Seizure onset: just prior to arrival. Seizure Hx: Last seizure: The patient's last seizure was approximately 1 month(s) ago. Associated injury: The patient did not suffer any apparent associated injury. Current symptoms: Currently, the patient is not experiencing any symptoms. The patient has experienced similar episodes in the past, multiple times. Historical: - Allergies: 13:36 PENICILLINS; hb - Home Meds: 13:36 gabapentin 300 mg Oral cap 3 times per day [Active]; Keppra 500 mg Oral tab 2 times per hb day [Active]; levothyroxine oral [Active]; lisinopril 20 mg Oral Tb24 once daily [Active]; meloxicam 15 mg oral tab 1 tab once daily [Active]; amlodipine 5 mg tab 1 tab once daily [Active]; pantoprazole 40 mg oral TbEC once daily [Active]; cyclobenzaprine 10 mg Oral tab [Active]; levetiracetam 300 mg oral tab once daily [Active]; quetiapine 25 mg oral tab [Active]; ProAir HFA 90 mcg/actuation inhalation HFAA [Active]; - PMHx: 13:36 ADD/ADHD; CVA; Left sided weakness; Fibromyalgia; Hypertension; Hypothyroidism; hb Myocardial infarction; Seizures; - Immunization history:: Adult Immunizations up to date. - Social history:: Smoking status: Patient uses tobacco products, smokes one-half pack cigarettes per day. - Ebola Screening: : No symptoms or risks identified at this time. ROS: 16:52 All other systems are negative. gs Exam: 16:52 Head/Face: Normocephalic, atraumatic. Eyes: Pupils equal round and reactive to light, gs extra-ocular motions intact. Lids and lashes normal. Conjunctiva and sclera are non-icteric and not injected. Cornea within normal limits. Periorbital areas with no swelling, redness, or edema. ENT: Nares patent. No nasal discharge, no septal abnormalities noted. Tympanic membranes are normal and external auditory canals are clear. Oropharynx with no redness, swelling, or masses, exudates, or evidence of obstruction, uvula midline. Mucous membranes moist. Neck: Trachea midline, no thyromegaly or masses palpated, and no cervical lymphadenopathy. Supple, full range of motion without nuchal rigidity, or vertebral point tenderness. No Meningismus. Chest/axilla: Normal chest wall appearance and motion. Nontender with no deformity. No lesions are appreciated. Cardiovascular: Regular rate and rhythm with a normal S1 and S2. No gallops, murmurs, or rubs. Normal PMI, no JVD. No pulse deficits. Respiratory: Lungs have equal breath sounds bilaterally, clear to auscultation and percussion. No rales, rhonchi or wheezes noted. No increased work of breathing, no retractions or nasal flaring. Abdomen/GI: Soft, non-tender, with normal bowel sounds. No distension or tympany. No guarding or rebound. No evidence of tenderness throughout. Back: No spinal tenderness. No costovertebral tenderness. Full range of motion. Skin: Warm, dry with normal turgor. Normal color with no rashes, no lesions, and no evidence of cellulitis. MS/ Extremity: Pulses equal, no cyanosis. Neurovascular intact. Full, normal range of motion. Neuro: Awake and alert, GCS 15, oriented to person, place, time, and situation. Cranial nerves II-XII grossly intact. Motor strength 5/5 in all extremities. Sensory grossly intact. Cerebellar exam normal. Normal gait. 16:52 Constitutional: The patient appears alert, awake. Vital Signs: 13:37 BP 118 / 83; Pulse 82; Resp 16; Temp 97.8; Pulse Ox 100% on R/A; Weight 81.65 kg; hb Height 5 ft. 5 in. (165.10 cm); Pain 10/10; 13:37 Body Mass Index 29.95 (81.65 kg, 165.10 cm) hb Ale Coma Score: 13:39 Eye Response: spontaneous(4). Verbal Response: oriented(5). Motor Response: obeys hb commands(6). Total: 15. MDM: 13:38 Patient medically screened. gs 16:52 Differential diagnosis: seizure. Data reviewed: vital signs, nurses notes. Counseling: gs I had a detailed discussion with the patient and/or guardian regarding: the historical points, exam findings, and any diagnostic results supporting the discharge/admit diagnosis, the need for outpatient follow up. Response to treatment: the patient's symptoms have markedly improved after treatment, the patient's symptoms have resolved after treatment, the patient's condition has returned to base line. 03/27 13:38 Order name: CBC with Diff; Complete Time: 14:35 03/27 13:38 Order name: Basic Metabolic Panel; Complete Time: 14:35 03/27 13:38 Order name: CPK; Complete Time: 14:35 Administered Medications: 13:44 Drug: Keppra 1000 mg Route: PO; hb 13:45 Drug: NS 0.9% 1000 ml Route: IV; Rate: 1 bolus; Site: right forearm; hb Disposition: 03/27/19 14:36 Discharged to Home. Impression: Epilepsy and recurrent seizures. - Condition is Stable. - Discharge Instructions: Seizure, Adult. - Work release form, Medication Reconciliation Form, Thank You Letter, Antibiotic Education, Prescription Opioid Use form. - Follow up: Private Physician; When: 2 - 3 days; Reason: Re-evaluation by your physician. Signatures: Dispatcher [employer] Yvette Colon RN RN hb Starr, Gregory, MD MD Corrections: (The following items were deleted from the chart) 15:42 14:36 03/27/2019 14:36 Discharged to Home. Impression: Epilepsy and recurrent seizures. hb Condition is Stable. Forms are Medication Reconciliation Form, Thank You Letter, Antibiotic Education, Prescription Opioid Use. Follow up: Private Physician; When: 2 - 3 days; Reason: Re-evaluation by your physician.
[2019-03-27 18:08] VITALS: BP 118/83; TEMP 97.8; O2SAT 100
== END 2019-03-27 15:42 | disposition home or self-care (01) ==
LOC: ER 13:24
DX: G40.802 Other epilepsy, not intractable, without status epilepticus (principal); I10 Essential (primary) hypertension; I25.2 Old myocardial infarction; F90.9 Attention-deficit hyperactivity disorder, unspecified type; E03.9 Hypothyroidism, unspecified; I69.354 Hemiplegia and hemiparesis following cerebral infarction affecting left non-dominant side; F17.210 Nicotine dependence, cigarettes, uncomplicated; Z88.0 Allergy status to penicillin
CPT/HCPCS: 85025; 80048; 36415; 82550; 99284; J7030

== ENCOUNTER 2019-04-05 14:05 | Emergency (ER) | payer OTHER ==
[2019-04-05] MEDS ORDERED: NA CHLORIDE 0.9% 500 ML ONE (14:59)
[2019-04-05] MEDS ORDERED: TRAMADOL HCL 50 MG TAB ONE ×2 (14:59→15:12)
[2019-04-05] MEDS ORDERED: NA CHLORIDE 0.9% 1,000 ML ONE (15:12)
--- NOTE | 2019-04-05 15:20 | RAD REPORT ---
EXAM DESCRIPTION: RAD - Shoulder Left 2 View - 04/05/2019 3:08 pm CLINICAL HISTORY: Left shoulder pain status post fall FINDINGS: No fracture or dislocation is seen. Osteoporosis
[2019-04-05 15:37] LABS: Absolute Lymphocytes (CBC) 0.9 K/uL (0.7-4.9); Hematocrit 42.5 % (36.0-45.0); Lymphocytes % 22.5 % (15.3-44.8); MPV 8.6 fL (7.6-11.3); RBC Red Blood Cell Count 4.35 M/uL (3.86-4.86)
[2019-04-05 15:43] LABS: Potassium 3.3 mmol/L (3.5-5.1)
--- NOTE | 2019-04-05 16:41 | EDPHYS ---
Physician Documentation [facility] Name: Maisha Leo Age: 58 yrs Sex: Female : 1960 Arrival Date: 04/05/2019 Time: 14:13 Bed 27 Private MD: ED Physician Mejia Juares HPI: 04/05 14:52 This 58 yrs old Female presents to ER via EMS with complaints of generalized pm1 weakness, falls, and left shoulder pain. 14:52 Details of fall: The patient fell from an upright position, while standing, and struck pm1 wall. Onset: The symptoms/episode began/occurred 2 day(s) ago. Associated injuries: The patient sustained anterior aspect of left shoulder. The patient has experienced similar episodes in the past, several times. Patient with complaints of generalized weakness and fall injury to left shoulder from two days ago. Patient prefers to use a cane but was recently given a walker. she feels that she falls more with using a walker over her cane. Staying at the [email or web address] and she tripped over her walker and fell into a wall. patient injured her left shoulder. Is able to move it but it hurts. No headache, neck pain, or head injury. Historical: - Allergies: 14:19 PENICILLINS; tr5 - Home Meds: 14:19 amlodipine 5 mg tab 1 tab once daily [Active]; gabapentin 300 mg Oral cap 3 times per tr5 day [Active]; Keppra 500 mg Oral tab 2 times per day [Active]; levothyroxine oral [Active]; ProAir HFA 90 mcg/actuation inhalation HFAA [Active]; pantoprazole 40 mg Oral TbEC once daily [Active]; meloxicam 15 mg Oral tab 1 tab once daily [Active]; levetiracetam 300 mg Oral tab once daily [Active]; cyclobenzaprine 10 mg Oral tab [Active]; lisinopril 20 mg Oral Tb24 once daily [Active]; quetiapine 25 mg Oral tab [Active]; - PMHx: 14:19 ADD/ADHD; CVA; Left sided weakness; Fibromyalgia; Hypertension; Hypothyroidism; tr5 Myocardial infarction; Seizures; COPD; Cirrhosis; - Immunization history:: Adult Immunizations Adult Immunizations up to date. - Social history:: Smoking status: Smoking status: Patient uses tobacco products, smokes one-half pack cigarettes per day. - Ebola Screening: : Patient denies travel to an Ebola-affected area in the 21 days before illness onset No symptoms or risks identified at this time. ROS: 14:52 Constitutional: Negative for fever, chills, and weight loss, Eyes: Negative for injury, pm1 pain, redness, and discharge, ENT: Negative for injury, pain, and discharge, Neck: Negative for injury, pain, and swelling, Cardiovascular: Negative for chest pain, palpitations, and edema, Respiratory: Negative for shortness of breath, cough, wheezing, and pleuritic chest pain, Abdomen/GI: Negative for abdominal pain, nausea, vomiting, diarrhea, and constipation, Back: Negative for injury and pain. 14:52 : Negative for injury, bleeding, discharge, and swelling, Skin: Negative for injury, rash, and discoloration. 14:52 MS/extremity: Positive for pain, of the anterior aspect of left shoulder, Negative for decreased range of motion, deformity. 14:52 Neuro: Positive for generalized weakness, Negative for altered mental status, dizziness, headache, numbness, tingling. Exam: 14:52 Constitutional: This is a well developed, well nourished patient who is awake, alert, pm1 and in no acute distress. Head/Face: Normocephalic, atraumatic. Eyes: Pupils equal round and reactive to light, extra-ocular motions intact. Lids and lashes normal. Conjunctiva and sclera are non-icteric and not injected. Cornea within normal limits. Periorbital areas with no swelling, redness, or edema. ENT: Nares patent. No nasal discharge, no septal abnormalities noted. Tympanic membranes are normal and external auditory canals are clear. Oropharynx with no redness, swelling, or masses, exudates, or evidence of obstruction, uvula midline. Mucous membranes moist. Neck: Trachea midline, no thyromegaly or masses palpated, and no cervical lymphadenopathy. Supple, full range of motion without nuchal rigidity, or vertebral point tenderness. No Meningismus. Chest/axilla: Normal chest wall appearance and motion. Nontender with no deformity. No lesions are appreciated. Cardiovascular: Regular rate and rhythm with a normal S1 and S2. No gallops, murmurs, or rubs. No pulse deficits. Respiratory: Lungs have equal breath sounds bilaterally, clear to auscultation and percussion. No rales, rhonchi or wheezes noted. No increased work of breathing, no retractions or nasal flaring. Abdomen/GI: Soft, non-tender, with normal bowel sounds. No distension or tympany. No guarding or rebound. No evidence of tenderness throughout. Back: No spinal tenderness. No costovertebral tenderness. Full range of motion. Skin: Warm, dry with normal turgor. Normal color with no rashes, no lesions, and no evidence of cellulitis. 14:52 Musculoskeletal/extremity: Extremities: grossly normal except: noted in the anterior aspect of left shoulder: tenderness. 14:52 Neuro: Orientation: is normal, Motor: moves all fours. Vital Signs: 14:13 BP 116 / 70 RA (auto/reg); Pulse 110; Resp 18; Temp 99.0; Pulse Ox 96% ; Pain 8/10; tr5 15:20 BP 121 / 75; Pulse 106; Resp 17; Pulse Ox 97% on R/A; tr5 16:31 BP 150 / 71; Pulse 79; Resp 16; Pulse Ox 95% on R/A; tr5 MDM: 14:34 Patient medically screened. godfrey 16:39 Data reviewed: vital signs. Data interpreted: Pulse oximetry: on room air is 95 %. pm1 Interpretation: normal. Counseling: I had a detailed discussion with the patient and/or guardian regarding: the historical points, exam findings, and any diagnostic results supporting the discharge/admit diagnosis, lab results, radiology results, the need for outpatient follow up, to return to the emergency department if symptoms worsen or persist or if there are any questions or concerns that arise at home. 04/05 14:52 Order name: CBC with Diff; Complete Time: 15:44 pm1 04/05 14:52 Order name: BMP; Complete Time: 15:44 pm1 04/05 14:52 Order name: IV Saline Lock; Complete Time: 15:16 pm1 04/05 14:52 Order name: Shoulder Left (2 View) XRAY; Complete Time: 15:38 pm1 Administered Medications: 15:15 Drug: NS 0.9% 500 ml Route: IV; Rate: bolus; Site: right antecubital; tr5 16:00 Follow up: IV Status: Completed infusion; IV Intake: 500ml tr5 15:16 Drug: traMADol 50 mg {Note: RASS:0.} Route: PO; tr5 04/06 01:32 Follow up: Response: No adverse reaction; RASS: Alert and Calm (0) tr5 Disposition: 07:23 Co-signature as Attending Physician, Mejia Juares MD I agree with the assessment and godfrey plan of care. Disposition: 04/05/19 16:40 Discharged to Home. Impression: Fall on same level, unspecified, Pain in left shoulder. - Condition is Stable. - Discharge Instructions: Fall Prevention in the Home, Shoulder Pain. - Medication Reconciliation Form, Thank You Letter, Antibiotic Education, Prescription Opioid Use form. - Follow up: Emergency Department; When: As needed; Reason: Worsening of condition. Follow up: Private Physician; When: 2 - 3 days; Reason: Recheck today's complaints, Continuance of care, Re-evaluation by your physician. - Problem is new. - Symptoms have improved. Signatures: Dispatcher [employer] EDNJ Mejia Juares MD MD cha Smirch, Shelby, RN RN ss Refugio Daly, FUNDRAISING SALE REPRESENTATIVE FUNDRAISING SALE REPRESENTATIVE pm1 Vane Hernández RN RN tw2 Eitan Sargent, RN RN tr5 Corrections: (The following items were deleted from the chart) 04/05 18:13 16:40 04/05/2019 16:40 Discharged to Home. Impression: Fall on same level, unspecified; ss Pain in left shoulder. Condition is Stable. Forms are Medication Reconciliation Form, Thank You Letter, Antibiotic Education, Prescription Opioid Use. Follow up: Emergency Department; When: As needed; Reason: Worsening of condition. Follow up: Private Physician; When: 2 - 3 days; Reason: Recheck today's complaints, Continuance of care, Re-evaluation by your physician. Problem is new. Symptoms have improved. pm1
--- NOTE | 2019-04-05 16:41 | ER ---
Nurse's Notes [facility] Name: Maisha Leo Age: 58 yrs Sex: Female : 1960 Arrival Date: 04/05/2019 Time: 14:13 Bed 27 Private MD: Diagnosis: Fall on same level, unspecified;Pain in left shoulder Presentation: 04/05 14:14 Presenting complaint: EMS states: Pt called EMS because she has been feeling week all tr5 over and just doesn't "feel right". She said she has been staying at the [facility] until she can get back on her feet but has been having some difficulties with walking and getting around due to her weakness and swollen ankles. Transition of care: [facility]. Onset of symptoms was April 05, 2019. Risk Assessment: Do you want to hurt yourself or someone else? Patient reports no desire to harm self or others. Initial Sepsis Screen: Does the patient meet any 2 criteria? HR > 90 bpm. Does the patient have a suspected source of infection? No. Patient's initial sepsis screen is negative. Care prior to arrival: None. 14:14 Method Of Arrival: EMS: [facility] tr5 14:14 Acuity: ARTURO 3 tr5 Historical: - Allergies: 14:19 PENICILLINS; tr5 - Home Meds: 14:19 amlodipine 5 mg tab 1 tab once daily [Active]; gabapentin 300 mg Oral cap 3 times per tr5 day [Active]; Keppra 500 mg Oral tab 2 times per day [Active]; levothyroxine oral [Active]; ProAir HFA 90 mcg/actuation inhalation HFAA [Active]; pantoprazole 40 mg Oral TbEC once daily [Active]; meloxicam 15 mg Oral tab 1 tab once daily [Active]; levetiracetam 300 mg Oral tab once daily [Active]; cyclobenzaprine 10 mg Oral tab [Active]; lisinopril 20 mg Oral Tb24 once daily [Active]; quetiapine 25 mg Oral tab [Active]; - PMHx: 14:19 ADD/ADHD; CVA; Left sided weakness; Fibromyalgia; Hypertension; Hypothyroidism; tr5 Myocardial infarction; Seizures; COPD; Cirrhosis; - Immunization history:: Adult Immunizations Adult Immunizations up to date. - Social history:: Smoking status: Smoking status: Patient uses tobacco products, smokes one-half pack cigarettes per day. - Ebola Screening: : Patient denies travel to an Ebola-affected area in the 21 days before illness onset No symptoms or risks identified at this time. Screenin:18 Abuse screen: Denies threats or abuse. Nutritional screening: No deficits noted. tw2 Tuberculosis screening: No symptoms or risk factors identified. Fall Risk None identified. Assessment: 14:19 General: Appears uncomfortable, unkempt, Behavior is calm, cooperative, appropriate for tr5 age. Pain: Complains of pain in Generalized. Neuro: Level of Consciousness is awake, alert, obeys commands, Oriented to person, place, time, situation, Skein Bleacher are equal bilaterally Weakness. Cardiovascular: Heart tones present Capillary refill < 3 seconds Pulses are all present. Edema is 2+ to waist, left foot and right foot. Respiratory: Airway is patent Respiratory effort is even, unlabored, Respiratory pattern is regular, symmetrical. GI: No signs and/or symptoms were reported involving the gastrointestinal system. : No signs and/or symptoms were reported regarding the genitourinary system. EENT: No signs and/or symptoms were reported regarding the EENT system. Derm: No signs and/or symptoms reported regarding the dermatologic system. Musculoskeletal: Reports weakness in Generalized. 15:00 Reassessment: Patient appears in no apparent distress at this time. Patient and/or tr5 family updated on plan of care and expected duration. Pain level reassessed. Patient is alert, oriented x 3, equal unlabored respirations, skin warm/dry/pink. 16:07 Reassessment: Patient appears in no apparent distress at this time. No changes from tr5 previously documented assessment. Patient and/or family updated on plan of care and expected duration. Pain level reassessed. Patient is alert, oriented x 3, equal unlabored respirations, skin warm/dry/pink. Vital Signs: 14:13 BP 116 / 70 RA (auto/reg); Pulse 110; Resp 18; Temp 99.0; Pulse Ox 96% ; Pain 8/10; tr5 15:20 BP 121 / 75; Pulse 106; Resp 17; Pulse Ox 97% on R/A; tr5 16:31 BP 150 / 71; Pulse 79; Resp 16; Pulse Ox 95% on R/A; tr5 ED Course: 14:13 Patient arrived in ED. tr5 14:13 Bed in low position. Call light in reach. tw2 14:14 Eitan Sargent, RN is Primary Nurse. tr5 14:16 Triage completed. tr5 14:19 Arm band placed on. tw2 14:19 panel monitor on. Pulse ox on. NIBP on. Warm blanket given. tr5 14:20 Refugio Daly NP is PHCP. pm1 14:20 Mejia Juares MD is Attending Physician. pm1 15:07 Shoulder Left (2 View) XRAY In Process Unspecified. EDMS 15:19 No provider procedures requiring assistance completed. Inserted saline lock: 20 gauge mg2 in right antecubital area, using aseptic technique. Blood collected. 17:05 IV discontinued. tr5 Administered Medications: 15:15 Drug: NS 0.9% 500 ml Route: IV; Rate: bolus; Site: right antecubital; tr5 16:00 Follow up: IV Status: Completed infusion; IV Intake: 500ml tr5 15:16 Drug: traMADol 50 mg {Note: RASS:0.} Route: PO; tr5 04/06 01:32 Follow up: Response: No adverse reaction; RASS: Alert and Calm (0) tr5 Intake: 04/05 16:00 IV: 500ml; Total: 500ml. tr5 Outcome: 16:40 Discharge ordered by . pm1 17:05 Discharged to Unknown tr5 17:05 Condition: stable 17:05 Discharge instructions given to patient, Instructed on discharge instructions, follow up and referral plans. 18:13 Patient left the ED. ss Signatures: Dispatcher [employer] EDIA Isabel Cantu RN RN Refugio Daly NP WELL SURVEYING ENGINEER pm1 Vane Hernández RN RN tw2 Mychal Gunderson RN RN [facility] Eitan Sargent, AZIZA RN tr5 Corrections: (The following items were deleted from the chart) 04/06 01:32 04/05 16:00 Response: No adverse reaction tr5 tr5
[2019-04-05 19:20] VITALS: TEMP 99
[2019-04-05 19:23] VITALS: BP 150/71; O2SAT 95
== END 2019-04-05 18:13 | disposition home or self-care (01) ==
LOC: ER 14:05
DX: M25.512 Pain in left shoulder (principal); W18.30XA Fall on same level, unspecified, initial encounter; Y93.9 Activity, unspecified; Y92.9 Unspecified place or not applicable; Z88.0 Allergy status to penicillin; E03.9 Hypothyroidism, unspecified; I10 Essential (primary) hypertension; J44.9 Chronic obstructive pulmonary disease, unspecified; F90.9 Attention-deficit hyperactivity disorder, unspecified type; I25.2 Old myocardial infarction; F17.210 Nicotine dependence, cigarettes, uncomplicated
CPT/HCPCS: 85025; 80048; 36415; 73030; 96360; 99284; J7040; J7030

== ENCOUNTER 2019-04-18 19:31 | Inpatient (IN) | payer OTHER ==
[2019-04-18] MEDS ORDERED: CLINDAMYCIN 900MG/D5W 900 MG/50 ML IVPB IV ONE (19:51)
[2019-04-18 19:59] LABS: Absolute Lymphocytes (CBC) 0.9 K/uL (0.7-4.9); Basophils % 1.2 % (0-1.3); Hematocrit 40.2 % (36.0-45.0); Lymphocytes % 20.1 % (15.3-44.8); MPV 8.4 fL (7.6-11.3); RBC Red Blood Cell Count 4.16 M/uL (3.86-4.86)
[2019-04-18] MEDS ORDERED: MORPHINE 4 MG/ML SYR ONE (20:14)
[2019-04-18] MEDS ORDERED: ONDANSETRON 4 MG/2 ML VIAL ONE (20:15)
[2019-04-18 20:19] LABS: ALT/SGPT 32 U/L (12-78); AST/SGOT 48 U/L (15-37); Albumin 2.5 g/dL (3.4-5.0); Alkaline Phosphatase 67 U/L (45-117); BUN Blood Urea Nitrogen 8 mg/dL (7-18); Bicarbonate 30 mmol/L (21-32); Bilirubin Total 0.7 mg/dL (0.2-1.0); Glucose Level 123 mg/dL (74-106); Protein, Total 7.4 g/dL (6.4-8.2); Sodium Level 141 mmol/L (136-145)
--- NOTE | 2019-04-18 21:04 | RAD REPORT ---
EXAM DESCRIPTION: USExtremity Venous Uni Ltd04/18/2019 8:55 pm CLINICAL HISTORY: Right leg pain and swelling. COMPARISON: None. FINDINGS: Right common femoral, superficial femoral, popliteal and right posterior tibial veins are compressible and demonstrate augmentation. Doppler demonstrates good flow. A 7 x 3 centimeter fluid collection posterior any IMPRESSION: No evidence of deep venous thrombosis involving the right lower extremity. 7 x 3 centimeter fluid collection posterior right knee could represent a Ding's cyst or old hematoma
--- NOTE | 2019-04-18 21:08 | ER ---
Nurse's Notes [facility] Name: Maisha Leo Age: 58 yrs Sex: Female : 1960 Arrival Date: 04/18/2019 Time: 19:35 Bed 25 Private MD: Diagnosis: Cellulitis of right lower limb Presentation: 04/18 19:37 Presenting complaint: EMS states: they were toned out for report of pt with right lower bb extremity pain and swelling after prior injury. Transition of care: patient was not received from another setting of care. Onset of symptoms is unknown. Risk Assessment: Do you want to hurt yourself or someone else? Patient reports no desire to harm self or others. Initial Sepsis Screen: Does the patient meet any 2 criteria? No. Patient's initial sepsis screen is negative. Does the patient have a suspected source of infection? No. Patient's initial sepsis screen is negative. Care prior to arrival: None. 19:37 Method Of Arrival: EMS: [facility] bb 19:37 Acuity: ARTURO 3 bb Historical: - Allergies: 19:40 PENICILLINS; bb - Home Meds: 19:40 amlodipine 5 mg tab 1 tab once daily [Active]; gabapentin 300 mg Oral cap 3 times per bb day [Active]; Keppra 500 mg Oral tab 2 times per day [Active]; lisinopril 20 mg Oral Tb24 once daily [Active]; levothyroxine oral [Active]; - PMHx: 19:40 ADD/ADHD; Cirrhosis; COPD; CVA; Left sided weakness; Fibromyalgia; Hypertension; bb Hypothyroidism; Myocardial infarction; Seizures; - PSHx: 19:40 D\T\C; bb - Immunization history:: Adult Immunizations unknown. - Social history:: Smoking status: unknown. - Ebola Screening: : No symptoms or risks identified at this time. Screenin:55 Abuse screen: Denies threats or abuse. Nutritional screening: On. Tuberculosis la1 screening: No symptoms or risk factors identified. Fall Risk None identified. Assessment: 19:54 General: Appears in no apparent distress. Behavior is calm, cooperative. Pain: la1 Complains of pain in lateral aspect of right knee, lateral aspect of right calf, posterior aspect of right knee, right calf, medial aspect of right knee, medial aspect of right calf, right knee and right catherine. Neuro: Level of Consciousness is awake, alert, obeys commands, Oriented to person, place, time, situation. Cardiovascular: Capillary refill < 3 seconds Patient's skin is warm and dry. Respiratory: Airway is patent Respiratory effort is even, unlabored, Respiratory pattern is regular, symmetrical, Breath sounds are clear bilaterally. Respiratory:. GI: No signs and/or symptoms were reported involving the gastrointestinal system. : No signs and/or symptoms were reported regarding the genitourinary system. Derm: Skin is pink, warm \T\ dry. normal, redness, swelling, warmth to RLE with pitting edema. 21:42 Reassessment: Patient appears in no apparent distress at this time. No changes from la1 previously documented assessment. Patient and/or family updated on plan of care and expected duration. Pain level reassessed. Patient is alert, oriented x 3, equal unlabored respirations, skin warm/dry/pink. Vital Signs: 19:35 BP 136 / 91; Pulse 93; Resp 16; Temp 97.9(O); Pulse Ox 98% on R/A; la1 19:40 Weight 81.65 kg; bb 19:40 Height 5 ft. 5 in. (165.10 cm); bb 21:00 BP 131 / 90; Pulse 74; Resp 16; Temp 98.1; Pulse Ox 100% on R/A; la1 22:20 BP 122 / 86; Pulse 92; Resp 16; Temp 97.3(TE); Pulse Ox 96% on R/A; la1 ED Course: 19:35 Patient arrived in ED. la1 19:38 Triage completed. bb 19:38 Charles Gonzales MD is Attending Physician. tw4 19:40 Arm band placed on Patient placed in an exam room, on a stretcher, on pulse oximetry. bb 19:41 Jose L Gan RN is Primary Nurse. la1 19:53 No provider procedures requiring assistance completed. Inserted saline lock: 20 gauge la1 in right antecubital area, using aseptic technique. Blood collected. 19:55 Patient has correct armband on for positive identification. la1 20:55 Ultrasound completed. Patient tolerated well. Notified ED Physician fidel. sg3 20:56 Extremity Venous Uni Ltd US In Process Unspecified. EDMS 21:06 Raoul Hopper MD is Hospitalizing Provider. tw4 22:20 Patient admitted, IV remains in place. la1 Administered Medications: 19:55 Drug: Clindamycin 900 mg Route: IVPB; Infused Over: 30 mins; Site: right antecubital; la1 22:21 Follow up: IV Status: Completed infusion la1 20:20 Drug: morphine 4 mg Route: IVP; Site: right antecubital; la1 22:21 Follow up: Response: No adverse reaction; Pain is decreased la1 20:20 Drug: Zofran 4 mg Route: IVP; Site: right antecubital; la1 22:21 Follow up: Response: No adverse reaction la1 22:43 Drug: Potassium Effervescent Tablet 50 mEq Route: PO; la1 Outcome: 21:07 Decision to Hospitalize by Provider. tw4 22:20 Admitted to Med/surg la1 22:20 Condition: stable 22:20 Instructed on the need for admit. 22:43 Patient left the ED. la1 Signatures: Dispatcher [employer] EDMaggie Augustin RN RN Jose L Gan RN RN la1 Marian Rosa 3 Charles Gonzales MD MD tw4
--- NOTE | 2019-04-18 21:08 | EDPHYS ---
Physician Documentation [facility] Name: Maisha Leo Age: 58 yrs Sex: Female : 1960 Arrival Date: 04/18/2019 Time: 19:35 Bed 25 Private MD: ED Physician Charles Gonzales HPI: 04/18 22:15 This 58 yrs old Female presents to ER via EMS with complaints of Leg tw4 Swelling, Leg Pain. 22:15 The patient presents with swelling. The complaints affect the right knee and right tw4 catherine. Context: The problem was sustained at home. Onset: The symptoms/episode began/occurred today. Modifying factors: The symptoms are alleviated by nothing. Associated signs and symptoms: The patient has no apparent associated signs or symptoms. Severity of symptoms: At their worst the symptoms were moderate, in the emergency department the symptoms are unchanged. Historical: - Allergies: 19:40 PENICILLINS; bb - Home Meds: 19:40 amlodipine 5 mg tab 1 tab once daily [Active]; gabapentin 300 mg Oral cap 3 times per bb day [Active]; Keppra 500 mg Oral tab 2 times per day [Active]; lisinopril 20 mg Oral Tb24 once daily [Active]; levothyroxine oral [Active]; - PMHx: 19:40 ADD/ADHD; Cirrhosis; COPD; CVA; Left sided weakness; Fibromyalgia; Hypertension; bb Hypothyroidism; Myocardial infarction; Seizures; - PSHx: 19:40 D\T\C; bb - Immunization history:: Adult Immunizations unknown. - Social history:: Smoking status: unknown. - Ebola Screening: : No symptoms or risks identified at this time. ROS: 22:15 Constitutional: Negative for fever, chills, and weight loss, Eyes: Negative for injury, tw4 pain, redness, and discharge, Cardiovascular: Negative for chest pain, palpitations, and edema, Respiratory: Negative for shortness of breath, cough, wheezing, and pleuritic chest pain, Abdomen/GI: Negative for abdominal pain, nausea, vomiting, diarrhea, and constipation, Back: Negative for injury and pain, MS/Extremity: Negative for injury and deformity, Skin: Negative for injury, rash, and discoloration. Exam: 22:15 Constitutional: This is a well developed, well nourished patient who is awake, alert, tw4 and in no acute distress. Head/Face: Normocephalic, atraumatic. Chest/axilla: Normal chest wall appearance and motion. Nontender with no deformity. No lesions are appreciated. Cardiovascular: Regular rate and rhythm with a normal S1 and S2. No gallops, murmurs, or rubs. Normal PMI, no JVD. No pulse deficits. Respiratory: Lungs have equal breath sounds bilaterally, clear to auscultation and percussion. No rales, rhonchi or wheezes noted. No increased work of breathing, no retractions or nasal flaring. Abdomen/GI: Soft, non-tender, with normal bowel sounds. No distension or tympany. No guarding or rebound. No evidence of tenderness throughout. Back: No spinal tenderness. No costovertebral tenderness. Full range of motion. MS/ Extremity: Pulses equal, no cyanosis. Neurovascular intact. Full, normal range of motion. Neuro: Awake and alert, GCS 15, oriented to person, place, time, and situation. Cranial nerves II-XII grossly intact. Motor strength 5/5 in all extremities. Sensory grossly intact. Cerebellar exam normal. Normal gait. Vital Signs: 19:35 BP 136 / 91; Pulse 93; Resp 16; Temp 97.9(O); Pulse Ox 98% on R/A; la1 19:40 Weight 81.65 kg; bb 19:40 Height 5 ft. 5 in. (165.10 cm); bb 21:00 BP 131 / 90; Pulse 74; Resp 16; Temp 98.1; Pulse Ox 100% on R/A; la1 22:20 BP 122 / 86; Pulse 92; Resp 16; Temp 97.3(TE); Pulse Ox 96% on R/A; la1 MDM: 19:38 Patient medically screened. tw4 04/19 04:01 Differential diagnosis: dislocation, open fracture, closed fracture, contusion, tw4 tendonitis, DVT. Data reviewed: vital signs, nurses notes. Data reviewed: lab test result(s), CBC, white blood cell count, hemoglobin, hematocrit, platelets, electrolytes, sodium, potassium, chloride, serum bicarbonate, BUN, creatinine. Data interpreted: Pulse oximetry: Interpretation: normal. Counseling: I had a detailed discussion with the patient and/or guardian regarding: the historical points, exam findings, and any diagnostic results supporting the discharge/admit diagnosis. Medication response: morphine markedly relieved the patient's pain. Symptoms have improved. Response to treatment: and as a result, I will admit patient, administer antibiotics Cleocin, administer IV fluids, administer pain medication, morphine. Physician consultation: Raoul Hopper MD regarding admission, patient's condition, and will see patient in inpatient room. 04/18 19:40 Order name: CBC with Diff; Complete Time: 20:57 tw4 04/18 20:57 Interpretation: Normal except: PLT 151. tw4 04/18 19:40 Order name: CMP; Complete Time: 20:57 tw4 04/18 22:28 Interpretation: Normal except: K 3.0; GLUC 123; AST 48; ALB 2.5; GLOB 4.9; A/G 0.5; CA tw4 8.0. 04/18 22:02 Order name: Basic Metabolic Panel EDAL 04/18 22:02 Order name: Basic Metabolic Panel EDAL 04/18 22:03 Order name: CBC with Automated Diff EDAL 04/18 22:03 Order name: CBC with Automated Diff EDAL 04/18 19:40 Order name: Extremity Venous Uni Ltd tw4 04/18 22:03 Order name: Protime (+INR) EDAL 04/18 22:03 Order name: Protime (+INR) EDAL 04/18 22:03 Order name: PTT, Activated Partial Thromb EDAL 04/18 22:03 Order name: PTT, Activated Partial Thromb EDAL 04/18 22:02 Order name: CONS Pharmacy Consult EDAL 04/18 22:02 Order name: CONS Pharmacy Consult EDAL 04/18 22:02 Order name: CONS Physician Consult EDAL 04/18 22:02 Order name: Regular EDMS Administered Medications: 04/18 19:55 Drug: Clindamycin 900 mg Route: IVPB; Infused Over: 30 mins; Site: right antecubital; la1 22:21 Follow up: IV Status: Completed infusion la1 20:20 Drug: morphine 4 mg Route: IVP; Site: right antecubital; la1 22:21 Follow up: Response: No adverse reaction; Pain is decreased la1 20:20 Drug: Zofran 4 mg Route: IVP; Site: right antecubital; la1 22:21 Follow up: Response: No adverse reaction la1 22:43 Drug: Potassium Effervescent Tablet 50 mEq Route: PO; la1 Disposition: 04/18/19 21:07 Hospitalization ordered by Raoul Hopper for Inpatient Admission. Preliminary diagnosis is Cellulitis of right lower limb. - Bed requested for Telemetry/MedSurg (Inpatient). - Status is Inpatient Admission. la1 - Condition is Stable. - Problem is new. - Symptoms are unchanged. UTI on Admission? No Signatures: Dispatcher [employer] EDMS Carmen Juarez RN RN Maggie Ambrosio RN RN Jose L Gan RN RN la1 Charles Gonzales MD MD tw4 Corrections: (The following items were deleted from the chart) 22:10 21:07 Hospitalization Ordered by Raoul Hopper MD for Inpatient Admission. Preliminary diagnosis is Cellulitis of right lower limb. Bed requested for Telemetry/MedSurg (Inpatient). Status is Inpatient Admission. Condition is Stable. Problem is new. Symptoms are unchanged. UTI on Admission? No. tw4 22:27 20:57 Normal except: K 3.0; GLUC 123. tw4 tw4 22:28 22:27 Normal except: K 3.0; GLUC 123; AST 48. tw4 tw4 22:28 22:27 Normal except: K 3.0; GLUC 123; AST 48; ALB 2.5; GLOB 4.9. tw4 tw4 22:43 22:10 04/18/2019 21:07 Hospitalization Ordered by Raoul Hopper MD for Inpatient la1 Admission. Preliminary diagnosis is Cellulitis of right lower limb. Bed requested for Telemetry/MedSurg (Inpatient). Status is Inpatient Admission. Condition is Stable. Problem is new. Symptoms are unchanged. UTI on Admission? No. mw
[2019-04-18] MEDS ORDERED: POTASSIUM 25 MEQ EFFERV TAB ONE (22:39)
[2019-04-18] MEDS: NA CHLORIDE 0.9% 1,000 ML IV SCH (23:09)
[2019-04-18] MEDS: MORPHINE 2 MG/ML SYR IV PRN (23:48)
[2019-04-18] MEDS: ONDANSETRON 4 MG/2 ML VIAL IV PRN (23:59)
[2019-04-19] MEDS: Levofloxacin500mg IV 500 MG/100 ML BAG IV SCH ×2 (00:02→23:20)
[2019-04-19] MEDS ORDERED: VANCOMYCIN 1 GM/VIAL ONE (00:11)
[2019-04-19] MEDS ORDERED: NA CHLORIDE 0.9% 500 ML ONE (00:11)
[2019-04-19] MEDS ORDERED: VANCOMYCIN 500 MG/VIAL ONE (00:11)
[2019-04-19] MEDS: VANCOMYCIN 1.5 GM in NA CHLORIDE 0.9% 500 ML IV SCH ×2 (01:06→12:05)
[2019-04-19 02:50] LABS: Urine Appearance CLEAR; Urine Blood NEGATIVE (NEG); Urine Color DK YELLOW; Urine Glucose NEGATIVE (NEG); Urine Protein NEGATIVE (NEG); Urine Specific Gravity 1.025 (1.005-1.030)
[2019-04-19 02:54] LABS: Urine Microscopic Reflex NO UMIC
[2019-04-19 02:55] LABS: Urine Bilirubin NEGATIVE (NEG)
[2019-04-19] MEDS: ONDANSETRON 4 MG/2 ML VIAL IV PRN ×5 (03:36→20:36)
[2019-04-19] MEDS: MORPHINE 2 MG/ML SYR IV PRN (03:37)
[2019-04-19 06:06] LABS: Absolute Lymphocytes (CBC) 0.8 K/uL (0.7-4.9); Basophils % 2.3 % (0-1.3); Hematocrit 34.3 % (36.0-45.0); MPV 8.7 fL (7.6-11.3); RBC Red Blood Cell Count 3.55 M/uL (3.86-4.86)
[2019-04-19 06:11] LABS: Protime INR 1.1
[2019-04-19 06:20] LABS: BUN Blood Urea Nitrogen 9 mg/dL (7-18); Bicarbonate 30 mmol/L (21-32); Glucose Level 106 mg/dL (74-106); Potassium 3.3 mmol/L (3.5-5.1); Sodium Level 144 mmol/L (136-145)
[2019-04-19] MEDS ORDERED: MORPHINE 2 MG/ML SYR IV PRN (06:39)
[2019-04-19] MEDS ORDERED: MORPHINE 2 MG/ML SYR IV ONE (06:40)
--- OUTSIDE RECORDS SUMMARY | 2019-04-19 07:18 | XMS REPORT ---
:1960 [facility] Address [address] [place] [address] Dr. Hall [address] [place] [id number] Care Team Providers Name Role Phone Unavailable Unavailable Unavailable Problems This patient has no known problems. Allergies, Adverse Reactions, Alerts This patient has no known allergies or adverse reactions. Medications This patient has no known medications.
--- NOTE | 2019-04-19 08:04 | P.HP ---
Certification for Inpatient Patient admitted to: Inpatient With expected LOS: >2 Midnights Patient will require the following post-hospital care: None Practitioner: I am a practitioner with admitting privileges, knowledge of patient current condition, hospital course, and medical plan of care. Services: Services provided to patient in accordance with Admission requirements found in Title 42 Section 412.3 of the Code of Federal Regulations Patient History Date of Service: 04/18/19 Reason for admission: Status post fall with cellulitis of the right knee History of Present Illness: Patient is a 50-year-old female came to the hospital with pain in her right knee. Patient has some erythema and edema in the right knee. She had an ultrasound done which did not reveal an abscess. She is living at the [facility]. She was taking a shower and noticed that she has some drainage coming from that knee. She came to the emergency room for evaluation. Her workup did not reveal an abscess. Physician in the emergency room felt like this was a cellulitis. After further evaluation and examination it does not appear that she has any joint involvement. Will get a CT of the kneeas well. Does not appear to be septic joint clinically. There does not appear to be a large joint effusion. Continue on IV antibiotics for now. Allergies Penicillins Allergy (Intermediate, Verified 04/18/19 23:29) Anaphylaxis Home Medications: Albuterol Sulfate [Proair Hfa] 1 puff IH SEECOM 04/18/19 Amlodipine Besylate 5 mg PO DAILY 04/18/19 Cyclobenzaprine [Flexeril] 10 mg PO BID 04/18/19 Gabapentin 400 mg PO TID 04/18/19 Levetiracetam [Keppra] 500 mg PO BID 04/18/19 Levothyroxine [Synthroid] 75 mcg PO [id number] 04/18/19 Lisinopril 20 mg PO BID 04/18/19 Meloxicam 15 mg PO DAILY 04/18/19 Quetiapine [Seroquel] 25 mg PO BEDTIME 04/18/19 - Past Medical/Surgical History Has patient received pneumonia vaccine in the past: Yes Diabetic: No -: Hypothyroidism -: HTN -: Anxiety -: Seizures -: HX PR x2 -: HX CVA x2 -: Osteoarthritis -: Hepatitis C -: liver cirrhosis -: Geovanny's paralysis -: Neck Surgery - Family History Mother Medical History: Heart disease, Diabetes Father Medical History: Other (see notes) Notes: Alzeimers Brother Medical History: Other (see notes) Notes: COPD, Bone Cancer, Back Surgery - Social History Smoking Status: Light Tobacco smoker (1-9 cigarettes/day) Alcohol use: Yes CD- Drugs: No Caffeine use: Yes Review of Systems 10-point ROS is otherwise unremarkable Physical Examination - Vital Signs Temperature: 97.5 F Blood Pressure: 116/69 Pulse: 88 Respirations: 18 Pulse Ox (%): 94 - Physical Exam General: Alert, In no apparent distress, Oriented x3 HEENT: Atraumatic, PERRLA, Mucous membr. moist/pink, EOMI, Sclerae nonicteric Neck: Supple, 2+ carotid pulse no bruit, No LAD, Without JVD or thyroid abnormality Respiratory: Clear to auscultation bilaterally, Normal air movement Cardiovascular: Regular rate/rhythm, Normal S1 S2, No murmurs Gastrointestinal: Normal bowel sounds, Soft and benign, Non-distended, No tenderness Musculoskeletal: No clubbing, No swelling, Tenderness (Right knee) Integumentary: No rashes, Tenderness/swelling, Erythema, Warmth (Right leg) Neurological: Normal gait, Normal speech, Normal strength at 5/5 x4 extr, Normal tone, Sensation intact, Cranial nerves 3-12 intact, Normal affect Lymphatics: No axilla or inguinal lymphadenopathy - Studies Laboratory Data (last 24 hrs) 04/18/19 19:40: Sodium 141, Potassium 3.0 L, BUN 8, Creatinine 0.66, Glucose 123 H, Total Bilirubin 0.7, AST 48 H, ALT 32, Alkaline Phosphatase 67 04/18/19 19:40: WBC 4.3, Hgb 13.7, Hct 40.2, Plt Count 151 L Assessment & Plan - Problems (Diagnosis) (1) Cellulitis of knee, right Current Visit: Yes Status: Acute (2) Homeless Current Visit: Yes Status: Acute (3) Hepatitis C Current Visit: No Status: Acute (4) History of CVA (cerebrovascular accident) Current Visit: No Status: Acute (5) Hx of myocardial infarction Current Visit: No Status: Acute (6) Seizures Current Visit: No Status: Acute - Plan 1. Continue with IV antibiotic 2. CT of the right leg for further evaluation 3. Surgical consultation & ID consultation 4. Gentle IV hydration 5. Monitor CBC 6. Strict blood sugar monitoring 7. Pain control 8. GI and DVT prophylaxis Discharge Plan: Home Plan to discharge in: Greater than 2 days - Advance Directives Does patient have a Living Will: Yes Does patient have a Durable POA for Healthcare: Yes - Code Status/Comfort Care Code Status Assessed: Yes Code Status: Full Code Critical Care: No Time Spent Managing PTS Care (In Minutes): 45
--- NOTE | 2019-04-19 10:33 | RAD REPORT ---
EXAM DESCRIPTION: CT - Knee Right W Cont - 04/19/2019 9:22 am CLINICAL HISTORY: Knee effusion/abscess, right knee pain with soft tissue pain and swelling COMPARISON: None. TECHNIQUE: Axial 5 millimeter thick images of the right lower extremity were obtained following cont rast administration. [id number] span did the right leg from midshaft femur to midshaft tibia. Sagi ttal and coronal reconstruction images were generated and reviewed. The CT scan was performed using dose optimization techniques as appropriate to a performed exam incl uding one or more of the following: Automated exposure control, adjustment of the mA and/or kV accord ing to patient size (this includes techniques or standardized protocols for targeted exams where dose is matched to indication/reason for exam) and use of iterative reconstruction technique. FINDINGS: No fracture is identified. There is no periosteal reaction. No cortical disruption or bone destructive process seen. Patient has mild medial and lateral compartment narrowing with marginal sp urs. Spurring is seen along the articular margins of the patella. Small degenerative cystic changes a re present deep to the cortex of the patella. Meniscus and ligamentous assessment cannot be made on C T imaging. A 6 x 3 x 3 centimeter popliteal fossa cyst is present medial side of the popliteal fossa. No CT find ings of cyst rupture or hemorrhage. Patient has a moderately large joint effusion. There does appear to be a low level of enhancement of the synovial lining of the knee and lining of the Ding's cyst. No skeletal muscle abnormality. No abnormal vasculature seen. Edema changes are present along the anterior, lateral and posterior aspect of the knee and upper calf . Fluid is seen in the deep portion of the subcutaneous fat in the upper and mid calf level. No absce ss or drainable fluid collections seen in the subcutaneous fatty tissues. No air or foreign body. IMPRESSION: Moderate-size joint effusion with a 6 x 3 x 3 Ding cyst in the medial popliteal fossa. Both structures showing low-level enhancement of the joint synovial lining and lucero of the Ding's c yst. The enhancement pattern may still be within range of normal. Low-level synovitis cannot be excluded. Fluid and edematous stranding are present in the subcutaneous fatty tissues along the anterior, later al and posterior aspects of the leg. No abscess or drainable fluid collection.
[2019-04-19] MEDS: NA CHLORIDE 0.9% 1,000 ML IV SCH (11:20)
[2019-04-19] MEDS: MORPHINE 4 MG/ML SYR IV PRN ×2 (16:04→20:38)
--- NOTE | 2019-04-19 18:26 | P.PN ---
Subjective Date of Service: 04/19/19 Primary Care Provider: Unknown Chief Complaint: Status post fall with cellulitis of the right knee Subjective: Doing well Physical Examination - Vital Signs Temperature: 97 F Blood Pressure: 125/72 Pulse: 94 Respirations: 19 Pulse Ox (%): 98 - Physical Exam General: Alert, In no apparent distress, Cooperative HEENT: Atraumatic Neck: Supple Respiratory: Clear to auscultation bilaterally, Normal air movement Cardiovascular: Normal pulses, Regular rate/rhythm Gastrointestinal: Normal bowel sounds, Non-distended Integumentary: Other (Erythema, swelling to the right lower extremity. Wound noted to the right knee.) Neurological: Normal speech, Normal strength at 5/5 x4 extr, Normal tone - Studies Laboratory Data (last 24 hrs) 04/18/19 19:40: Sodium 141, Potassium 3.0 L, BUN 8, Creatinine 0.66, Glucose 123 H, Total Bilirubin 0.7, AST 48 H, ALT 32, Alkaline Phosphatase 67 04/18/19 19:40: WBC 4.3, Hgb 13.7, Hct 40.2, Plt Count 151 L Medications List Reviewed: Yes Assessment & Plan Discharge Plan: Home Plan to discharge in: Greater than 2 days Physician Review Additional Text: Impression: Right lower extremity cellulitis around the knee complicated with moderate size joint effusion and 6 x 3 x 3 Ding's cyst Hypertension Seizure disorder Hypothyroidism Obesity Plan: Right lower extremity cellulitis around the knee complicated with moderate size joint effusion and 6 x 3 x 3 Ding's cyst: Continue with antibiotic therapy. Case discussed with surgery. Case also discussed with orthopedics at request of surgery. No orthopedic intervention needed at this time. Orthopedic feels no septic arthritis at this time. No identifiable abscess noted at this time. Surgery plans for surgical intervention tomorrow. Likely debridement. If patient will require physical therapy after intervention. Patient does not qualify for skilled placement. Patient coming from [facility]. Must consider long-term placement. Will monitor closely. I will turn the service over to Dr. Bustamante tomorrow. I were go over the plan of care with her. Hypertension: Restart home medication. Seizure disorder: Restart home medication. Hypothyroidism: Restart home medication. Obesity: Address lifestyle modification education. Time Spent Managing Pts Care (In Minutes): 55
[2019-04-19] MEDS: levETIRAcetam 500 MG TAB PO SCH (20:38)
[2019-04-19] MEDS: lisinopriL 20 MG TAB PO SCH (20:39)
[2019-04-19] MEDS: GABAPENTIN 400 MG CAP PO SCH ×2 (20:43→23:20)
[2019-04-19] MEDS: QUETIAPINE 25 MG TAB PO SCH (20:43)
[2019-04-20] MEDS: VANCOMYCIN 1.5 GM in NA CHLORIDE 0.9% 500 ML IV SCH ×2 (00:23→12:31)
[2019-04-20] MEDS: MORPHINE 4 MG/ML SYR IV PRN ×6 (00:23→23:12)
[2019-04-20] MEDS: NA CHLORIDE 0.9% 1,000 ML IV SCH ×2 (00:40→14:00)
[2019-04-20] MEDS: LEVOTHYROXINE SOD 0.075 MG TAB PO SCH (05:24)
[2019-04-20 06:12] LABS: Absolute Lymphocytes (CBC) 0.8 K/uL (0.7-4.9); Basophils % 1.4 % (0-1.3); Hematocrit 37.1 % (36.0-45.0); Lymphocytes % 25.2 % (15.3-44.8); MPV 8.3 fL (7.6-11.3); RBC Red Blood Cell Count 3.83 M/uL (3.86-4.86)
[2019-04-20 06:28] LABS: BUN Blood Urea Nitrogen 6 mg/dL (7-18); Bicarbonate 32 mmol/L (21-32); Glucose Level 87 mg/dL (74-106); Magnesium 2.2 mg/dL (1.8-2.4); Potassium 3.8 mmol/L (3.5-5.1); Sodium Level 142 mmol/L (136-145)
[2019-04-20] MEDS ORDERED: MIDAZOLAM HCL 2 MG/2 ML INJ ONE (07:09)
[2019-04-20] MEDS ORDERED: LIDOCAINE 2% MPF 5 ML VIAL ONE (07:09)
[2019-04-20] MEDS ORDERED: PROPOFOL 200 MG/20 ML VIAL IV ONE (07:09)
[2019-04-20] MEDS ORDERED: FENTANYL CITR 100 MCG/2 ML ONE (07:09)
[2019-04-20] MEDS ORDERED: Ringers Lactate 0 ML IV ONE (07:17)
[2019-04-20] MEDS ORDERED: BUPIVACA 0.5%/EPI 0.0005%/PF 30 ML VIAL ONE (07:17)
[2019-04-20] MEDS ORDERED: NA CHLORIDE 0.9% 1,000 ML ONE (07:19)
--- NOTE | 2019-04-20 07:52 | P.OP ---
Preoperative diagnosis: RIGHT knee skin infection Postoperative diagnosis: RIGHT knee skin infection Primary procedure: Debridement of RIGHT knee skin infection Anesthesia: GETA + Local Estimated blood loss: <10cc Specimen: Necrotic Knee Tissue Findings: Necrotic tissue with abscess cavities drained to surface extending to bursa Complications: None Transferred to: Recovery Room Condition: Good
[2019-04-20] MEDS: HYDROMORPHONE HCL 1 MG/ML INJ ONE ×2 (08:17→08:22)
--- NOTE | 2019-04-20 08:23 | CON ---
History Of Present Illness: This is a 58-year-old female coming in with right knee infection and pos sible abscess and cellulitis of right lower extremity. Patient lives at [facility]. Had a recent fall. She walks around with the help of a walker. Denies any headache, nausea, vomiting, chest pain, abdominal pain, constipation, or diarrhea. This happened about 2 weeks ago and was treat ed by somebody from the senior living by antibiotic ointment and gauze dressing. Patient denies any other problems at this time. Past Medical History: Hypertension, hypothyroidism, anxiety, seizure disorder, history of [place] x2, str gene x2, osteoarthritis, hepatitis C, liver cirrhosis , neck surgery. Social History: Tobacco positive. Alcohol positive. Family History: Noncontributory. Medications: Levaquin and vancomycin. See MAR for other medications. Allergies: PENICILLIN. Review of Systems: A 10-point review was performed. Physical Examination: General: This is a 58-year-old female, lying in bed, not in any acute cardiopulmonary distress. Vital Signs: Temperature 97, pulse 88, respirations 18, blood pressure 116/69. HEENT: Unremarkable. Neck: Supple. Lungs: crackles. Heart: S1, S2, regular. Abdomen: Soft, nontender. Bowel sounds present. Extremities: Right leg with 2+ edema with erythematous changes with increased warmth and area about 3 x 5 cm of swelling noted with small open area. Laboratory Data: Shows WBC 2.7, hemoglobin 12, platelets are 134. Chemistry shows sodium 144, potas sium 3.3, chloride 109, bicarb 30, BUN 9, creatinine 0.5, glucose 106, albumin is 2.5. Micro data [facility] wound cultures are pending. CT scan of the right knee shows moderate-sized joint effusion with a 6 x 3 x 3 Ding cyst in the medial popliteal fossa. Both the structures showing low-level _ of the Ding cyst. Assessment And Plan: Right knee abscess and cellulitis of right lower extremity in a patient with mu ltiple medical problems, currently being treated with vancomycin and Levaquin. Cultures are pending. Continue therapy and treatment. We will decide wound care treatment after I and D of e abscess. Continue supportive care and wound care. We will follow patient closely. Thank you for consult. RICHIE/JONATHAN Voice ID: [id number] Report ID: [id number]
[2019-04-20] MEDS: lisinopriL 20 MG TAB PO SCH ×2 (09:00→20:37)
[2019-04-20] MEDS: AMLODIPINE 5 MG TAB PO SCH (09:00)
[2019-04-20] MEDS: GABAPENTIN 400 MG CAP PO SCH ×3 (09:00→20:37)
[2019-04-20] MEDS: levETIRAcetam 500 MG TAB PO SCH ×2 (09:00→20:37)
--- NOTE | 2019-04-20 12:29 | CON ---
Date of Consultation: 04/19/2019 Brief History Of Present Illness: Patient is a 58-year-old female, who came in the [facility] with right-sided knee pain. She states that she fell down on some aayush about a week and half ag o and had some redness and swelling. She did not think anything of it. It continued to get worse an d worse. She had an ultrasound, which did not show an abscess at that time. She lives in [facility]. She noted that over the course of the past several days she has continued to have drainage fro m that knee. It swell up initially and then a bunch of pus came out and continued to drain over mult iple days. It is tender. It is painful. She had imaging, which did not show any concerning for dominik nt involvement. Dr. Wagoner spoke with the orthopedic surgeon regarding the findings on the knee CT a nd they felt there was no need for orthopedic intervention and agreed to proceed with simple debridem ent of this area. Past Medical History: Significant for hypothyroidism, hypertension, anxiety, seizures, NE x2, CVA x2 , hep C, osteoarthritis, cirrhosis, Geovanny's paralysis. Past Surgical History: She has had neck surgery only. Home Medications: Include ProAir, amlodipine, Flexeril, gabapentin, Keppra, Synthroid, lisinopril, m eloxicam, Seroquel. Allergies: TO PENICILLIN. Family History: Father had heart disease, diabetes. Mother had Alzheimer's. Brother had cancer and back surgery. She smokes actively. She still drinks alcohol recreationally. Review of Systems: A 10-point review of systems other than HPI, denies. Physical Examination: VITAL SIGNS: At the time of my examination, her BMI is 31.9, blood pressure 123/63, pulse 100, respi ratory rate 18, temperature 97.8. General: She is awake, alert, oriented. Psychiatric: Appropriate. Conversive. HEENT: She is normocephalic. Sclerae icteric. Mucous membranes are moist. Oropharynx clear. She has poor dentition. Neck: Supple. No JVD. Chest: Normal expansion and excursion. Cardiovascular: Regular rate and rhythm. Pulmonary: Clear to auscultation bilaterally. Abdomen: Soft, nontender, nondistended. Extremities: She has a right knee necrotic tissue with multiple punctate areas of draining purulent fluid and tender. There is surrounding cellulitis. There is obvious necrosis at the skin and likely continuously draining collection in this area as any time it is palpated, additional purulent fluid is emanated. The remainder of the extremity examination shows she has edema in bilateral lower extre mities. Upper extremities, mild edema, but otherwise unremarkable. SKIN: Her skin has a somewhat discolored appearance with a suntanned appearance heavily with multipl e spots consistent with increased tanning exposure with light perfusion buildup. Laboratory Data: Reveals a white blood cell count of 3.1, hemoglobin 12.9, hematocrit 37.1, platelet count is 161. Her PT 12.9, INR 1.1, PTT 37.8. Sodium 142, potassium 3.8, chloride 108, carbon diox tasneem 32, BUN 6, creatinine 0.6, glucose is 87. Her UA showed was positive for urobilinogen, otherwise unremarkable. Imaging: She had imaging performed which included a knee CT, which officially read as a moderate siz e joint effusion with 6 x 3 x 3 Ding cyst in the medial popliteal fossa both structures showing low- level enhancement of the joint synovial fluid lining wall Ding cyst. The enhancing pattern may stil l be within normal range, low level synovitis cannot be excluded. Fluid is draining present in the s ubcutaneous fascial tissue along the anterior lateral and posterior aspects of the leg. No abscess o r drainable fluid collection evident. She had an extremity venous study as well on 04/18, which is o fficially read as no evidence of DVT involving the right lower extremity. There is 7.3 cm center flu id collection posteriorly could represent Ding cyst or old hematoma. Assessment And Plan: This is 58-year-old female with necrotic tissue of the right knee and a continu ously draining abscess. 1.IV fluid hydration. 2.Antibiotic coverage. 3.I have explained the risks, benefits, and alternatives of debridement of this knee infection inclu ding but not limited to bleeding, infection, joint evaluation, nerve injury, need for further operati on and procedures, and she agrees to proceed as indicated. TK/MODL Voice ID: [id number] Report ID: [id number]
--- NOTE | 2019-04-20 14:59 | P.PN ---
Subjective Date of Service: 04/20/19 Primary Care Provider: Unknown Chief Complaint: Status post fall with cellulitis of the right knee Patient seen and examined at bedside with RN. Chart reviewed. Case discussed with general surgery. Currently doing well overall. No complaints to offer overnight. Review of Systems 10-point ROS is otherwise unremarkable Physical Examination - Vital Signs Temperature: 97.6 F Blood Pressure: 110/71 Pulse: 98 Respirations: 16 Pulse Ox (%): 98 - Physical Exam General: Alert, In no apparent distress HEENT: Atraumatic, PERRLA, EOMI Neck: Supple, JVD not distended Respiratory: Clear to auscultation bilaterally, Normal air movement Cardiovascular: Regular rate/rhythm, Normal S1 S2 Gastrointestinal: Normal bowel sounds, No tenderness Musculoskeletal: Erythema, Tenderness, Warmth Integumentary: No rashes Neurological: Normal speech, Normal tone, Normal affect Lymphatics: No axilla or inguinal lymphadenopathy - Studies Medications List Reviewed: Yes Assessment And Plan - Current Problems (Diagnosis) (1) Cellulitis of knee, right Current Visit: Yes Status: Acute Plan: Right lower extremity cellulitis around the knee complicated with moderate size joint effusion and 6 x 3 x 3 Ding's cyst -patient is currently in status post incision and drainage POD 1 -currently on IV antibiotics will continue that here in the hospital -wound cultures pending at this time -orthopedic surgery also consulted on the case. No surgical intervention plan as the -will get physical therapy to have patient ambulate here in the hospital -will follow up with cultures here in the hospital as well. (2) Cellulitis of right foot Current Visit: No Status: Acute Plan: Same As above (3) Cocaine abuse Onset Date: 11/18/17 Current Visit: No Status: Chronic (4) History of CVA (cerebrovascular accident) Current Visit: No Status: Chronic Plan: Currently on home medication will continue that here in the hospital (5) Hx of myocardial infarction Current Visit: No Status: Chronic (6) Hypertension Current Visit: No Status: Chronic Qualifiers: Hypertension type: essential hypertension Qualified Code(s): I10 - Essential (primary) hypertension (7) Hypothyroidism Onset Date: 11/18/17 Current Visit: No Status: Chronic Qualifiers: Hypothyroidism type: acquired Qualified Code(s): E03.9 - Hypothyroidism, unspecified (8) Seizures Current Visit: No Status: Chronic (9) Tobacco abuse Onset Date: 11/18/17 Current Visit: No Status: Chronic - Plan Pending clinical improvement at this time. Will continue with IV antibiotics and follow up with wound culture. Patient may require wound care outpatient if he will need to have packing done. Currently on Levaquin and vancomycin will continue that here in the hospital. Discharge Plan: Home Plan to discharge in: Greater than 2 days - Code Status/Comfort Care Code Status Assessed: Yes Critical Care: No
--- NOTE | 2019-04-20 18:38 | OP ---
Date of Procedure: 04/20/2019 Surgeon: Karan Juarez MD, Preoperative Diagnosis: Right knee skin infection. Postoperative Diagnosis: Right knee skin infection. Procedure Performed: Debridement of right knee skin infection. Anesthesia: General endotracheal plus local. Estimated Blood Loss: Less than 10 mL. Specimen: Necrotic knee tissue. Findings: Necrotic tissue with abscess cavity was drained to surface of extended bursa. Complications: None. Disposition: Transferred to recovery room in good condition. Procedure In Detail: Informed was obtained. Patient was brought to the operating room, prepped and draped in usual sterile fashion. After adequate anesthesia was achieved, an elliptical incision was made around the area of the right anterolateral knee on the inferior aspect of the tissue. There wer e multiple punctate draining purulent cavities encountered after cutting down through the subcutaneou s tissues with a 15-blade scalpel. I then used electrocautery to dissect around all the necrotic tis deysi. Abscess cavities were evident in a multiloculated fashion. These were completely undermined an d unroofed down to the bursal area. There was no joint capsule violation and no injury to tendons or any bony structures. This was all in the subcutaneous and deep dermal layers. After this was compl etely unroofed and cleaned out with a curette, electrocautery was used to achieve hemostasis. The ar ea was copiously irrigated multiple times until completely clear and the wound was packed as it was a pproximately 8 cm x 4.5 cm. It was packed with a Betadine-soaked gauze and sterile dressing was plac ed over top. Patient tolerated the procedure well without evidence of complication and transferred t o the PACU in good condition. All counts were correct at the end of the case. NIKOLAS/JONATHAN Voice ID: [id number] Report ID: [id number]
[2019-04-20] MEDS: QUETIAPINE 25 MG TAB PO SCH (20:39)
[2019-04-20] MEDS: Levofloxacin500mg IV 500 MG/100 ML BAG IV SCH (23:13)
[2019-04-21] MEDS: VANCOMYCIN 1.5 GM in NA CHLORIDE 0.9% 500 ML IV SCH ×3 (00:17→23:44)
[2019-04-21] MEDS: NA CHLORIDE 0.9% 1,000 ML IV SCH (03:20)
[2019-04-21] MEDS: MORPHINE 4 MG/ML SYR IV PRN (03:39)
[2019-04-21] MEDS: LEVOTHYROXINE SOD 0.075 MG TAB PO SCH (05:08)
[2019-04-21] MEDS: HYDROCODONE/APAP 5/325 MG TAB PO PRN ×2 (05:08→10:32)
[2019-04-21 05:51] LABS: Absolute Lymphocytes (CBC) 0.8 K/uL (0.7-4.9); Basophils % 1.4 % (0-1.3); Hematocrit 38.1 % (36.0-45.0); MPV 8.4 fL (7.6-11.3); RBC Red Blood Cell Count 3.89 M/uL (3.86-4.86)
[2019-04-21 06:02] LABS: BUN Blood Urea Nitrogen 5 mg/dL (7-18); Bicarbonate 33 mmol/L (21-32); Glucose Level 94 mg/dL (74-106); Sodium Level 141 mmol/L (136-145)
[2019-04-21] MEDS: GABAPENTIN 400 MG CAP PO SCH ×3 (08:08→20:07)
[2019-04-21] MEDS: lisinopriL 20 MG TAB PO SCH ×2 (08:08→20:07)
[2019-04-21] MEDS: AMLODIPINE 5 MG TAB PO SCH (08:09)
[2019-04-21] MEDS: levETIRAcetam 500 MG TAB PO SCH ×2 (08:09→20:07)
--- NOTE | 2019-04-21 11:48 | PN ---
Subjective: Patient is here after surgical debridement of the right knee abscess. Denies any headac he, nausea, vomiting, chest pain, abdominal pain, constipation, or diarrhea. Objective: Vital Signs: Temperature 97, pulse 98, respirations 16, blood pressure 110/71. Lungs: Basal crackles. Heart: S1, S2 regular. Abdomen: Soft, nontender. Bowel sounds present. EXTREMITIES: Right leg erythematous changes and swelling noted. Right knee surgical dressing. Laboratory Data: WBC is 3.1, hemoglobin 12.9, platelets are 161. Chemistry shows sodium 142, potass ium 3.8, chloride 108, bicarb 32, BUN 6, creatinine 0.6, glucose is 87. Micro data still pending. Assessment And Plan: Right knee abscess and cellulitis of right lower extremity, currently on Levaqu in and vancomycin. We will continue antibiotic and supportive care. Pending culture results. We wi ll follow the patient closely. NF/MODL Voice ID: [id number] Report ID: [id number]
--- NOTE | 2019-04-21 13:25 | P.PN ---
Subjective Date of Service: 04/21/19 Primary Care Provider: Unknown Chief Complaint: Status post fall with cellulitis of the right knee Subjective: Improving (Patient was ambulatory earlier, no pain) Physical Examination - Vital Signs Temperature: 97.7 F Blood Pressure: 116/75 Pulse: 99 Respirations: 16 Pulse Ox (%): 98 - Physical Exam General: Alert Integumentary: Other (RIGHT knee wound is clean and dry, not packed at this time , dressings not in place) - Studies Medications List Reviewed: Yes Assessment And Plan - Plan 58 year old woman with infected wound of RIGHT knee skin - continue antibioitcs per Dr. Ramírez Howard to wound, add wound vac for tomorrow - will likely transition to med honey soon - daily dressing changes until WVAC applied Physician Review Additional Text: Impression: Right lower extremity cellulitis around the knee complicated with moderate size joint effusion and 6 x 3 x 3 Ding's cyst Hypertension Seizure disorder Hypothyroidism Obesity Plan: Right lower extremity cellulitis around the knee complicated with moderate size joint effusion and 6 x 3 x 3 Ding's cyst: Continue with antibiotic therapy. Case discussed with surgery. Case also discussed with orthopedics at request of surgery. No orthopedic intervention needed at this time. Orthopedic feels no septic arthritis at this time. No identifiable abscess noted at this time. Surgery plans for surgical intervention tomorrow. Likely debridement. If patient will require physical therapy after intervention. Patient does not qualify for skilled placement. Patient coming from [facility]. Must consider long-term placement. Will monitor closely. I will turn the service over to Dr. Bustamante tomorrow. I were go over the plan of care with her. Hypertension: Restart home medication. Seizure disorder: Restart home medication. Hypothyroidism: Restart home medication. Obesity: Address lifestyle modification education.
[2019-04-21] MEDS: TRAMADOL HCL 50 MG TAB PO PRN ×2 (13:36→20:07)
--- NOTE | 2019-04-21 15:08 | P.PN ---
Subjective Date of Service: 04/21/19 Primary Care Provider: Unknown Chief Complaint: Status post fall with cellulitis of the right knee Patient seen and examined at bedside with RN. Chart reviewed. Case discussed with general surgery. Currently doing well overall. No complaints to offer overnight. Review of Systems 10-point ROS is otherwise unremarkable Physical Examination - Vital Signs Temperature: 97.7 F Blood Pressure: 116/75 Pulse: 99 Respirations: 16 Pulse Ox (%): 98 - Physical Exam General: Alert, In no apparent distress HEENT: Atraumatic, PERRLA, EOMI Neck: Supple, JVD not distended Respiratory: Clear to auscultation bilaterally, Normal air movement Cardiovascular: Regular rate/rhythm, Normal S1 S2 Gastrointestinal: Normal bowel sounds, No tenderness Musculoskeletal: Erythema, Tenderness, Warmth Integumentary: No rashes Neurological: Normal speech, Normal tone, Normal affect Lymphatics: No axilla or inguinal lymphadenopathy - Studies Medications List Reviewed: Yes Assessment And Plan - Current Problems (Diagnosis) (1) Cellulitis of knee, right Current Visit: Yes Status: Acute Plan: Right lower extremity cellulitis around the knee complicated with moderate size joint effusion and 6 x 3 x 3 Ding's cyst -patient is currently in status post incision and drainage POD 2 -currently on IV Vanc will continue that here in the hospital -wound cultures + for MSSA -orthopedic surgery also consulted on the case. No surgical intervention plan as the -will get physical therapy to have patient ambulate here in the hospital -CM for IV abx and wound care arrangement as patient is homeless. -Will need 2 weeks of IV abx (2) Cellulitis of right foot Current Visit: No Status: Acute Plan: Same As above (3) Cocaine abuse Onset Date: 11/18/17 Current Visit: No Status: Chronic (4) History of CVA (cerebrovascular accident) Current Visit: No Status: Chronic Plan: Currently on home medication will continue that here in the hospital (5) Hx of myocardial infarction Current Visit: No Status: Chronic (6) Hypertension Current Visit: No Status: Chronic Qualifiers: Hypertension type: essential hypertension Qualified Code(s): I10 - Essential (primary) hypertension (7) Hypothyroidism Onset Date: 11/18/17 Current Visit: No Status: Chronic Qualifiers: Hypothyroidism type: acquired Qualified Code(s): E03.9 - Hypothyroidism, unspecified (8) Seizures Current Visit: No Status: Chronic (9) Tobacco abuse Onset Date: 11/18/17 Current Visit: No Status: Chronic - Plan Pending clinical improvement at this time. Will continue with IV antibiotics and follow up with wound culture. Patient may require wound care outpatient if he will need to have packing done. Currently on Levaquin and vancomycin will continue that here in the hospital. Discharge Plan: Home Plan to discharge in: Greater than 2 days - Code Status/Comfort Care Code Status Assessed: Yes Critical Care: No
--- NOTE | 2019-04-21 18:12 | PN ---
Subjective: Patient lying in bed. No new acute event. Chart reviewed. Continue to have discomfort to the right leg. Objective: Vital Signs: Temperature 97, pulse 99, respirations 16, blood pressure 116/75. Lungs: Basal crackles. Heart: S1, S2. Regular. Abdomen: Soft, nontender. Bowel sounds present. Extremities: Right leg with erythematous changes and ulceration, status post surgical debridement no amelie. Laboratory Data: WBC 2.8, hemoglobin 13, platelets are 165. Chemistry shows sodium 141, potassium 4 , chloride 105, bicarb 33, BUN 5, creatinine 0.6, glucose is 90. Micro Data: Staph aureus is growing from the right knee. The patient sensitive to Bactrim, tetracyc lines, cefazolin, Levaquin, and Cipro. Currently on vancomycin. Assessment And Plan: Right knee abscess, status post incision and drainage. Continue current treatm ent. Continue antibiotic. IV antibiotic can be switched to cefazolin from vancomycin. We will foll ow the patient closely. NF/MODL Voice ID: [id number] Report ID: [id number]
[2019-04-21] MEDS: QUETIAPINE 25 MG TAB PO SCH (20:08)
[2019-04-22] MEDS: TRAMADOL HCL 50 MG TAB PO PRN ×3 (01:03→12:57)
[2019-04-22] MEDS: ACETAMINOPHEN 500 MG TAB PO PRN (02:24)
[2019-04-22] MEDS: LEVOTHYROXINE SOD 0.075 MG TAB PO SCH (05:38)
[2019-04-22 06:14] LABS: Absolute Lymphocytes (CBC) 0.6 K/uL (0.7-4.9); Basophils % 1.8 % (0-1.3); Hematocrit 34.3 % (36.0-45.0); Lymphocytes % 30.9 % (15.3-44.8); MPV 8.6 fL (7.6-11.3); RBC Red Blood Cell Count 3.54 M/uL (3.86-4.86)
[2019-04-22 06:26] LABS: BUN Blood Urea Nitrogen 7 mg/dL (7-18); Bicarbonate 33 mmol/L (21-32); Glucose Level 104 mg/dL (74-106); Magnesium 2.1 mg/dL (1.8-2.4); Potassium 3.5 mmol/L (3.5-5.1); Sodium Level 142 mmol/L (136-145)
[2019-04-22 06:29] VITALS: BMI 30.2
[2019-04-22 08:05] LABS: Blood Morphology Comment NOT SEEN (NOT SEEN); Platelet Estimate ADEQ; Urine White Blood Cell Casts OK
[2019-04-22] MEDS: lisinopriL 20 MG TAB PO SCH ×2 (09:00→20:40)
[2019-04-22] MEDS: COLLAGENASE 30 GM OINTMENT TOP SCH (09:00)
[2019-04-22] MEDS ORDERED: MEDIHONEY 44 ML TOPICAL TUBE TOP SCH (09:00)
[2019-04-22] MEDS: AMLODIPINE 5 MG TAB PO SCH (09:00)
[2019-04-22] MEDS: GABAPENTIN 400 MG CAP PO SCH ×3 (09:09→20:39)
[2019-04-22] MEDS: levETIRAcetam 500 MG TAB PO SCH ×2 (09:09→20:39)
[2019-04-22] MEDS: VANCOMYCIN 1.5 GM in NA CHLORIDE 0.9% 500 ML IV SCH (12:57)
--- NOTE | 2019-04-22 13:49 | P.PN ---
Subjective Date of Service: 04/22/19 Primary Care Provider: Unknown Chief Complaint: Status post fall with cellulitis of the right knee Patient seen and examined at bedside with RN. Chart reviewed. Case discussed with general surgery. Currently doing well overall. No complaints to offer overnight. Review of Systems 10-point ROS is otherwise unremarkable Physical Examination - Vital Signs Temperature: 97.3 F Blood Pressure: 94/58 Pulse: 79 Respirations: 19 Pulse Ox (%): 98 - Physical Exam General: Alert, In no apparent distress HEENT: Atraumatic, PERRLA, EOMI Neck: Supple, JVD not distended Respiratory: Clear to auscultation bilaterally, Normal air movement Cardiovascular: Regular rate/rhythm, Normal S1 S2 Gastrointestinal: Normal bowel sounds, No tenderness Musculoskeletal: No tenderness Integumentary: No rashes Neurological: Normal speech, Normal tone, Normal affect Lymphatics: No axilla or inguinal lymphadenopathy - Studies Medications List Reviewed: Yes Assessment And Plan - Current Problems (Diagnosis) (1) Cellulitis of knee, right Current Visit: Yes Status: Acute Plan: Right lower extremity cellulitis around the knee complicated with moderate size joint effusion and 6 x 3 x 3 Ding's cyst -patient is currently in status post incision and drainage POD 3 -currently on IV Vanc will continue that here in the hospital 08/20 -wound cultures + for MSSA -orthopedic surgery also consulted on the case. No surgical intervention plan as the -will get physical therapy to have patient ambulate here in the hospital -CM for IV abx and wound care arrangement as patient is homeless. -Will need 2 weeks of IV abx (2) Cellulitis of right foot Current Visit: No Status: Acute Plan: Same As above (3) Cocaine abuse Onset Date: 11/18/17 Current Visit: No Status: Chronic (4) History of CVA (cerebrovascular accident) Current Visit: No Status: Chronic (5) Hx of myocardial infarction Current Visit: No Status: Chronic (6) Hypertension Current Visit: No Status: Chronic Qualifiers: Hypertension type: essential hypertension Qualified Code(s): I10 - Essential (primary) hypertension (7) Hypothyroidism Onset Date: 11/18/17 Current Visit: No Status: Chronic Qualifiers: Hypothyroidism type: acquired Qualified Code(s): E03.9 - Hypothyroidism, unspecified (8) Seizures Current Visit: No Status: Chronic (9) Tobacco abuse Onset Date: 11/18/17 Current Visit: No Status: Chronic - Plan Pending clinical improvement at this time. Will continue with IV antibiotics and follow up with wound culture. Patient may require wound care outpatient if she will need to have packing done. Currently on vancomycin will continue that here in the hospital. Discharge Plan: Home Plan to discharge in: Greater than 2 days - Code Status/Comfort Care Code Status Assessed: Yes Critical Care: No
--- NOTE | 2019-04-22 17:55 | P.PN ---
Subjective Date of Service: 04/22/19 Primary Care Provider: Unknown Chief Complaint: Status post fall with cellulitis of the right knee Subjective: Improving Physical Examination - Vital Signs Temperature: 97.3 F Blood Pressure: 134/78 Pulse: 88 Respirations: 18 Pulse Ox (%): 95 - Physical Exam General: Alert, In no apparent distress, Cooperative Integumentary: Other (WVAC in place on RIGHT knee) - Studies Medications List Reviewed: Yes Assessment And Plan - Plan 58 year old woman with infected wound of RIGHT knee skin - continue antibioitcs per Dr. Elmore - Lee to wound, add wound vac - will likely transition to med honey soon - WVAC Physician Review Additional Text: Impression: Right lower extremity cellulitis around the knee complicated with moderate size joint effusion and 6 x 3 x 3 Ding's cyst Hypertension Seizure disorder Hypothyroidism Obesity Plan: Right lower extremity cellulitis around the knee complicated with moderate size joint effusion and 6 x 3 x 3 Ding's cyst: Continue with antibiotic therapy. Case discussed with surgery. Case also discussed with orthopedics at request of surgery. No orthopedic intervention needed at this time. Orthopedic feels no septic arthritis at this time. No identifiable abscess noted at this time. Surgery plans for surgical intervention tomorrow. Likely debridement. If patient will require physical therapy after intervention. Patient does not qualify for skilled placement. Patient coming from [facility]. Must consider long-term placement. Will monitor closely. I will turn the service over to Dr. Bustamante tomorrow. I were go over the plan of care with her. Hypertension: Restart home medication. Seizure disorder: Restart home medication. Hypothyroidism: Restart home medication. Obesity: Address lifestyle modification education.
[2019-04-22] MEDS ORDERED: HYDROCODONE/APAP 5/325 MG TAB PO ONE (20:08)
[2019-04-22] MEDS: QUETIAPINE 25 MG TAB PO SCH (20:41)
[2019-04-23] MEDS: VANCOMYCIN 1.5 GM in NA CHLORIDE 0.9% 500 ML IV SCH ×2 (00:09→12:56)
[2019-04-23] MEDS: TRAMADOL HCL 50 MG TAB PO PRN ×4 (00:17→21:01)
[2019-04-23] MEDS: LEVOTHYROXINE SOD 0.075 MG TAB PO SCH (05:21)
[2019-04-23 05:47] LABS: BUN Blood Urea Nitrogen 8 mg/dL (7-18); Bicarbonate 34 mmol/L (21-32); Glucose Level 85 mg/dL (74-106); Potassium 3.8 mmol/L (3.5-5.1); Sodium Level 143 mmol/L (136-145)
[2019-04-23] MEDS: GABAPENTIN 400 MG CAP PO SCH ×3 (10:29→21:00)
[2019-04-23] MEDS: lisinopriL 20 MG TAB PO SCH ×2 (10:29→21:00)
[2019-04-23] MEDS: AMLODIPINE 5 MG TAB PO SCH (10:29)
[2019-04-23] MEDS: levETIRAcetam 500 MG TAB PO SCH ×2 (10:29→21:01)
[2019-04-23] MEDS: COLLAGENASE 30 GM OINTMENT TOP SCH (12:57)
--- NOTE | 2019-04-23 13:00 | P.PN ---
Subjective Date of Service: 04/23/19 Primary Care Provider: Unknown Chief Complaint: Status post fall with cellulitis of the right knee Subjective: Improving (WVAC in place) Physical Examination - Vital Signs Temperature: 97.5 F Blood Pressure: 122/72 Pulse: 83 Respirations: 18 Pulse Ox (%): 95 - Physical Exam General: Alert, In no apparent distress, Cooperative Integumentary: Other (RIGHT knee WVAC in place, functioning well) - Studies Medications List Reviewed: Yes Assessment And Plan - Plan 58 year old woman with infected wound of RIGHT knee skin - continue antibioitcs per Dr. Ramírez Howard to wound, add wound vac - will likely transition to med honey soon - WVAC change today - recommend -w- Physician Review Additional Text: Impression: Right lower extremity cellulitis around the knee complicated with moderate size joint effusion and 6 x 3 x 3 Ding's cyst Hypertension Seizure disorder Hypothyroidism Obesity Plan: Right lower extremity cellulitis around the knee complicated with moderate size joint effusion and 6 x 3 x 3 Ding's cyst: Continue with antibiotic therapy. Case discussed with surgery. Case also discussed with orthopedics at request of surgery. No orthopedic intervention needed at this time. Orthopedic feels no septic arthritis at this time. No identifiable abscess noted at this time. Surgery plans for surgical intervention tomorrow. Likely debridement. If patient will require physical therapy after intervention. Patient does not qualify for skilled placement. Patient coming from [facility]. Must consider long-term placement. Will monitor closely. I will turn the service over to Dr. Bustamante tomorrow. I were go over the plan of care with her. Hypertension: Restart home medication. Seizure disorder: Restart home medication. Hypothyroidism: Restart home medication. Obesity: Address lifestyle modification education.
--- NOTE | 2019-04-23 13:22 | P.PN ---
Subjective Date of Service: 04/23/19 Primary Care Provider: Unknown Chief Complaint: Status post fall with cellulitis of the right knee Patient seen and examined at bedside with RN. Chart reviewed. Case discussed with general surgery. Currently doing well overall. No complaints to offer overnight. Review of Systems 10-point ROS is otherwise unremarkable Physical Examination - Vital Signs Temperature: 97.5 F Blood Pressure: 122/72 Pulse: 83 Respirations: 18 Pulse Ox (%): 95 - Physical Exam General: Alert, In no apparent distress HEENT: Atraumatic, PERRLA, EOMI Neck: Supple, JVD not distended Respiratory: Clear to auscultation bilaterally, Normal air movement Cardiovascular: Regular rate/rhythm, Normal S1 S2 Gastrointestinal: Normal bowel sounds, No tenderness Musculoskeletal: Other (Right Knee with Wound vac) Integumentary: No rashes Neurological: Normal speech, Normal tone, Normal affect Lymphatics: No axilla or inguinal lymphadenopathy - Studies Medications List Reviewed: Yes Assessment And Plan - Current Problems (Diagnosis) (1) Cellulitis of knee, right Current Visit: Yes Status: Acute Plan: Right lower extremity cellulitis around the knee complicated with moderate size joint effusion and 6 x 3 x 3 Ding's cyst -patient is currently in status post incision and drainage POD 4 -currently on IV Vanc will continue that here in the hospital 09/20 -wound cultures + for MSSA -orthopedic surgery also consulted on the case. No surgical intervention plan as the -will get physical therapy to have patient ambulate here in the hospital -CM for IV abx and wound care arrangement as patient is homeless. -Will need 2 weeks of IV abx (2) Cellulitis of right foot Current Visit: No Status: Acute Plan: Same As above (3) Cocaine abuse Onset Date: 11/18/17 Current Visit: No Status: Chronic (4) History of CVA (cerebrovascular accident) Current Visit: No Status: Chronic (5) Hx of myocardial infarction Current Visit: No Status: Chronic (6) Hypertension Current Visit: No Status: Chronic Qualifiers: Hypertension type: essential hypertension Qualified Code(s): I10 - Essential (primary) hypertension (7) Hypothyroidism Onset Date: 11/18/17 Current Visit: No Status: Chronic Qualifiers: Hypothyroidism type: acquired Qualified Code(s): E03.9 - Hypothyroidism, unspecified (8) Seizures Current Visit: No Status: Chronic (9) Tobacco abuse Onset Date: 11/18/17 Current Visit: No Status: Chronic - Plan Pending clinical improvement at this time. Will continue with IV antibiotics for 2 weeks. Discharge Plan: Home Plan to discharge in: 48 Hours - Code Status/Comfort Care Code Status Assessed: Yes Critical Care: No
[2019-04-23] MEDS: QUETIAPINE 25 MG TAB PO SCH (21:00)
[2019-04-24] MEDS: VANCOMYCIN 1.5 GM in NA CHLORIDE 0.9% 500 ML IV SCH ×2 (01:42→11:53)
[2019-04-24] MEDS: LEVOTHYROXINE SOD 0.075 MG TAB PO SCH (06:00)
[2019-04-24] MEDS: levETIRAcetam 500 MG TAB PO SCH ×2 (08:48→20:59)
[2019-04-24] MEDS: lisinopriL 20 MG TAB PO SCH ×2 (08:48→20:59)
[2019-04-24] MEDS: GABAPENTIN 400 MG CAP PO SCH ×3 (08:48→20:59)
[2019-04-24] MEDS: AMLODIPINE 5 MG TAB PO SCH (08:48)
[2019-04-24] MEDS: COLLAGENASE 30 GM OINTMENT TOP SCH (08:49)
[2019-04-24] MEDS: TRAMADOL HCL 50 MG TAB PO PRN (08:51)
--- NOTE | 2019-04-24 12:03 | P.PN ---
Subjective Date of Service: 04/24/19 Primary Care Provider: Unknown Chief Complaint: Status post fall with cellulitis of the right knee Subjective: No new changes, Improving Review of Systems 10-point ROS is otherwise unremarkable Physical Examination - Vital Signs Temperature: 97.9 F Blood Pressure: 127/69 Pulse: 75 Respirations: 17 Pulse Ox (%): 96 - Physical Exam General: Alert, In no apparent distress HEENT: Atraumatic, Normocephalic Neck: Supple Respiratory: Clear to auscultation bilaterally, Normal air movement Cardiovascular: Regular rate/rhythm, Normal S1 S2 Capillary refill: <2 Seconds Gastrointestinal: Soft and benign Musculoskeletal: Swelling, Tenderness, Warmth, Other (Wound Vac R Knee ) Integumentary: No rashes Neurological: Normal strength at 5/5 x4 extr Lymphatics: No axilla or inguinal lymphadenopathy Urinary: Other (no bladder distention ) External genitalia: Deferred Rectal: Deferred - Studies Medications List Reviewed: Yes Assessment & Plan - Problems (Diagnosis) (1) Cellulitis of knee, right Current Visit: Yes Status: Acute Plan: Right lower extremity cellulitis around the knee complicated with moderate size joint effusion and 6 x 3 x 3 Ding's cyst status post incision and drainage POD 5 currently on IV Vanc will continue that here in the hospital 10/20 wound cultures + for MSSA orthopedic surgery also consulted on the case. No surgical intervention physical therapy to have patient ambulate here in the hospital CM for IV abx and wound care arrangement as patient is homeless. Will need 2 weeks of IV abx (2) Alcohol abuse Onset Date: 11/18/17 Current Visit: No Status: Chronic (3) Hepatitis C Current Visit: No Status: Acute (4) Hx of myocardial infarction Current Visit: No Status: Chronic Plan: Continue home meds and titrate as needed (5) Hypertension Current Visit: No Status: Chronic Plan: Continue home meds and titrate as needed Qualifiers: Hypertension type: essential hypertension Qualified Code(s): I10 - Essential (primary) hypertension (6) Hypothyroidism Onset Date: 11/18/17 Current Visit: No Status: Chronic Plan: Continue home meds and titrate as needed Qualifiers: Hypothyroidism type: acquired Qualified Code(s): E03.9 - Hypothyroidism, unspecified (7) Seizures Current Visit: No Status: Chronic Plan: Continue home meds and titrate as needed (8) Tobacco abuse Onset Date: 11/18/17 Current Visit: No Status: Chronic Plan: Advised Smoking cessation Discharge Plan: Prison Plan to discharge in: 48 Hours Physician Review Additional Text: Impression: Right lower extremity cellulitis around the knee complicated with moderate size joint effusion and 6 x 3 x 3 Ding's cyst Hypertension Seizure disorder Hypothyroidism Obesity Plan: Right lower extremity cellulitis around the knee complicated with moderate size joint effusion and 6 x 3 x 3 Ding's cyst: Continue with antibiotic therapy. Case discussed with surgery. Case also discussed with orthopedics at request of surgery. No orthopedic intervention needed at this time. Orthopedic feels no septic arthritis at this time. No identifiable abscess noted at this time. Surgery plans for surgical intervention tomorrow. Likely debridement. If patient will require physical therapy after intervention. Patient does not qualify for skilled placement. Patient coming from [facility]. Must consider long-term placement. Will monitor closely. I will turn the service over to Dr. Bustamante tomorrow. I were go over the plan of care with her. Hypertension: Restart home medication. Seizure disorder: Restart home medication. Hypothyroidism: Restart home medication. Obesity: Address lifestyle modification education. Time Spent Managing Pts Care (In Minutes): 48
[2019-04-24] MEDS: HYDROCODONE/APAP 10/325 TAB PO PRN ×2 (14:32→18:17)
[2019-04-24] MEDS: ENSURE HIGH PROTEIN 237 ML CAN PO SCH (17:31)
[2019-04-24] MEDS: QUETIAPINE 25 MG TAB PO SCH (21:00)
[2019-04-25] MEDS: HYDROCODONE/APAP 10/325 TAB PO PRN ×4 (00:26→23:31)
[2019-04-25] MEDS: VANCOMYCIN 1.5 GM in NA CHLORIDE 0.9% 500 ML IV SCH ×3 (00:32→23:39)
[2019-04-25] MEDS: LEVOTHYROXINE SOD 0.075 MG TAB PO SCH (05:18)
[2019-04-25 06:30] LABS: Absolute Lymphocytes (CBC) 0.7 K/uL (0.7-4.9); Basophils % 2.4 % (0-1.3); Lymphocytes % 31.6 % (15.3-44.8); MPV 8.5 fL (7.6-11.3); RBC Red Blood Cell Count 3.84 M/uL (3.86-4.86)
[2019-04-25 06:45] LABS: ALT/SGPT 39 U/L (12-78); AST/SGOT 62 U/L (15-37); Albumin 2.4 g/dL (3.4-5.0); Alkaline Phosphatase 57 U/L (45-117); BUN Blood Urea Nitrogen 9 mg/dL (7-18); Bicarbonate 31 mmol/L (21-32); Bilirubin Total 0.5 mg/dL (0.2-1.0); Glucose Level 87 mg/dL (74-106); Potassium 3.8 mmol/L (3.5-5.1); Protein, Total 7.2 g/dL (6.4-8.2); Sodium Level 140 mmol/L (136-145)
[2019-04-25] MEDS: COLLAGENASE 30 GM OINTMENT TOP SCH (09:00)
[2019-04-25] MEDS: GABAPENTIN 400 MG CAP PO SCH ×3 (09:20→22:35)
[2019-04-25] MEDS: levETIRAcetam 500 MG TAB PO SCH ×2 (09:20→22:35)
[2019-04-25] MEDS: AMLODIPINE 5 MG TAB PO SCH (09:20)
[2019-04-25] MEDS: lisinopriL 20 MG TAB PO SCH ×2 (09:21→22:35)
[2019-04-25] MEDS: ENSURE HIGH PROTEIN 237 ML CAN PO SCH ×3 (10:37→16:39)
--- NOTE | 2019-04-25 11:23 | P.PN ---
Subjective Date of Service: 04/25/19 Primary Care Provider: Unknown Chief Complaint: Status post fall with cellulitis of the right knee Subjective: No new changes, Improving Pain is controlled well no fever no chills Review of Systems 10-point ROS is otherwise unremarkable Physical Examination - Vital Signs Temperature: 97.4 F Blood Pressure: 127/76 Pulse: 81 Respirations: 18 Pulse Ox (%): 93 - Physical Exam General: Alert, In no apparent distress HEENT: Atraumatic, Normocephalic Neck: Supple Respiratory: Clear to auscultation bilaterally Cardiovascular: Normal pulses, Regular rate/rhythm Capillary refill: <2 Seconds Gastrointestinal: Soft and benign, W/out hepatosplenomegaly Musculoskeletal: Swelling, Tenderness, Warmth Integumentary: Tenderness/swelling, Erythema Neurological: Normal strength at 5/5 x4 extr Lymphatics: No axilla or inguinal lymphadenopathy Urinary: Other (no bladder distention ) External genitalia: Deferred Rectal: Deferred - Studies Medications List Reviewed: Yes Assessment & Plan - Problems (Diagnosis) (1) Cellulitis of knee, right Current Visit: Yes Status: Acute Plan: Right lower extremity cellulitis around the knee complicated with moderate size joint effusion and 6 x 3 x 3 Ding's cyst status post incision and drainage POD 6 currently on IV Vanc will continue that here in the hospital 11/20 wound cultures + for MSSA orthopedic surgery also consulted on the case. No surgical intervention physical therapy to have patient ambulate here in the hospital CM for IV abx and wound care arrangement as patient is homeless. Will need 2 weeks of IV abx in total (2) Alcohol abuse Onset Date: 11/18/17 Current Visit: No Status: Chronic Plan: Advised alcohol cessation (3) Hepatitis C Current Visit: No Status: Chronic Plan: Monitor LFTs Advised follow up as outpatient (4) Hx of myocardial infarction Current Visit: No Status: Chronic Plan: Continue home meds and titrate as needed (5) Hypertension Current Visit: No Status: Chronic Plan: Continue home meds and titrate as needed Qualifiers: Hypertension type: essential hypertension Qualified Code(s): I10 - Essential (primary) hypertension (6) Hypothyroidism Onset Date: 11/18/17 Current Visit: No Status: Chronic Plan: Continue home meds and titrate as needed Qualifiers: Hypothyroidism type: acquired Qualified Code(s): E03.9 - Hypothyroidism, unspecified (7) Seizures Current Visit: No Status: Chronic Plan: Continue home meds and titrate as needed (8) Tobacco abuse Onset Date: 11/18/17 Current Visit: No Status: Chronic Plan: Advised Smoking cessation Physician Review Additional Text: Impression: Right lower extremity cellulitis around the knee complicated with moderate size joint effusion and 6 x 3 x 3 Ding's cyst Hypertension Seizure disorder Hypothyroidism Obesity Plan: Right lower extremity cellulitis around the knee complicated with moderate size joint effusion and 6 x 3 x 3 Ding's cyst: Continue with antibiotic therapy. Case discussed with surgery. Case also discussed with orthopedics at request of surgery. No orthopedic intervention needed at this time. Orthopedic feels no septic arthritis at this time. No identifiable abscess noted at this time. Surgery plans for surgical intervention tomorrow. Likely debridement. If patient will require physical therapy after intervention. Patient does not qualify for skilled placement. Patient coming from [facility]. Must consider long-term placement. Will monitor closely. I will turn the service over to Dr. Bustamante tomorrow. I were go over the plan of care with her. Hypertension: Restart home medication. Seizure disorder: Restart home medication. Hypothyroidism: Restart home medication. Obesity: Address lifestyle modification education. Time Spent Managing Pts Care (In Minutes): 38
[2019-04-25] MEDS: QUETIAPINE 25 MG TAB PO SCH (21:00)
[2019-04-26] MEDS: LEVOTHYROXINE SOD 0.075 MG TAB PO SCH (06:33)
[2019-04-26] MEDS: COLLAGENASE 30 GM OINTMENT TOP SCH (09:00)
[2019-04-26] MEDS: ENSURE HIGH PROTEIN 237 ML CAN PO SCH ×3 (09:00→16:07)
[2019-04-26] MEDS: levETIRAcetam 500 MG TAB PO SCH ×2 (09:11→20:40)
[2019-04-26] MEDS: GABAPENTIN 400 MG CAP PO SCH ×3 (09:11→20:40)
[2019-04-26] MEDS: lisinopriL 20 MG TAB PO SCH ×2 (09:11→20:40)
[2019-04-26] MEDS: AMLODIPINE 5 MG TAB PO SCH (09:11)
--- NOTE | 2019-04-26 09:22 | P.PN ---
Subjective Date of Service: 04/26/19 Primary Care Provider: Unknown Chief Complaint: Status post fall with cellulitis of the right knee Subjective: Improving Sleeping comfortably Pain is controlled well no fever no chills Review of Systems 10-point ROS is otherwise unremarkable Physical Examination - Vital Signs Temperature: 97.2 F Blood Pressure: 116/66 Pulse: 72 Respirations: 16 Pulse Ox (%): 91 - Physical Exam General: Alert, In no apparent distress HEENT: Atraumatic, Normocephalic Neck: Supple, JVD not distended Respiratory: Clear to auscultation bilaterally, Normal air movement Cardiovascular: Regular rate/rhythm, Normal S1 S2 Capillary refill: <2 Seconds Gastrointestinal: Soft and benign, W/out hepatosplenomegaly Musculoskeletal: Other (Wound vac Right Knee ) Integumentary: Tenderness/swelling, Erythema Neurological: Normal speech, Normal strength at 5/5 x4 extr Lymphatics: No axilla or inguinal lymphadenopathy Urinary: Other (No bladder distention) External genitalia: Deferred Rectal: Deferred - Studies Medications List Reviewed: Yes Assessment & Plan - Problems (Diagnosis) (1) Cellulitis of knee, right Current Visit: Yes Status: Acute Plan: Right lower extremity cellulitis around the knee complicated with moderate size joint effusion and 6 x 3 x 3 Ding's cyst status post incision and drainage POD 7 currently on IV Vanc will continue that here in the hospital 12/20 wound cultures + for MSSA orthopedic surgery also consulted on the case. No surgical intervention physical therapy to have patient ambulate here in the hospital CM for IV abx and wound care arrangement as patient is homeless. Will need 2 weeks of IV abx in total (2) Alcohol abuse Onset Date: 11/18/17 Current Visit: No Status: Chronic Plan: Advised alcohol cessation (3) Hepatitis C Current Visit: No Status: Chronic Plan: Monitor LFTs Advised follow up as outpatient (4) Hx of myocardial infarction Current Visit: No Status: Chronic Plan: Continue home meds and titrate as needed (5) Hypertension Current Visit: No Status: Chronic Plan: Continue home meds and titrate as needed Qualifiers: Hypertension type: essential hypertension Qualified Code(s): I10 - Essential (primary) hypertension (6) Hypothyroidism Onset Date: 11/18/17 Current Visit: No Status: Chronic Plan: Continue home meds and titrate as needed Qualifiers: Hypothyroidism type: acquired Qualified Code(s): E03.9 - Hypothyroidism, unspecified (7) Seizures Current Visit: No Status: Chronic Plan: Continue home meds and titrate as needed (8) Tobacco abuse Onset Date: 11/18/17 Current Visit: No Status: Chronic Plan: Advised Smoking cessation Discharge Plan: Home Plan to discharge in: Greater than 2 days Physician Review Additional Text: Impression: Right lower extremity cellulitis around the knee complicated with moderate size joint effusion and 6 x 3 x 3 Ding's cyst Hypertension Seizure disorder Hypothyroidism Obesity Plan: Right lower extremity cellulitis around the knee complicated with moderate size joint effusion and 6 x 3 x 3 Ding's cyst: Continue with antibiotic therapy. Case discussed with surgery. Case also discussed with orthopedics at request of surgery. No orthopedic intervention needed at this time. Orthopedic feels no septic arthritis at this time. No identifiable abscess noted at this time. Surgery plans for surgical intervention tomorrow. Likely debridement. If patient will require physical therapy after intervention. Patient does not qualify for skilled placement. Patient coming from [facility]. Must consider long-term placement. Will monitor closely. I will turn the service over to Dr. Bustamante tomorrow. I were go over the plan of care with her. Hypertension: Restart home medication. Seizure disorder: Restart home medication. Hypothyroidism: Restart home medication. Obesity: Address lifestyle modification education. Time Spent Managing Pts Care (In Minutes): 38
[2019-04-26] MEDS: HYDROCODONE/APAP 10/325 TAB PO PRN ×2 (11:40→19:36)
[2019-04-26] MEDS: VANCOMYCIN 1.5 GM in NA CHLORIDE 0.9% 500 ML IV SCH ×2 (11:41→23:01)
--- NOTE | 2019-04-26 15:26 | PN ---
Subjective: Patient lying in bed. No new acute event. Chart reviewed. Objective: Vital Signs: Temperature 98, pulse 94, respirations 18, blood pressure 135/65. Lungs: Basal crackles. Heart: S1, S2. Regular. Abdomen: Soft, nontender. Bowel sounds present. Extremities: Right knee with wound VAC in place. Wound VAC removal shows good granulation tissue, s ome necrotic area noted and slough noted. Laboratory Data: WBC 2.3, hemoglobin 12.7, platelets are 194. Sodium 140, potassium 3.8, chloride 1 06, bicarb 31, BUN 9, creatinine 0.57, glucose is 90. Assessment And Plan: Right knee abscess status post I and D, doing well. Currently patient has woun d VAC treatment. We will recommend also to add Santyl and continue vancomycin 1 more week. We will follow the patient as needed. NF/MODL Voice ID: [id number] Report ID: [id number]
[2019-04-26] MEDS: QUETIAPINE 25 MG TAB PO SCH (20:41)
[2019-04-27] MEDS: LEVOTHYROXINE SOD 0.075 MG TAB PO SCH (05:41)
[2019-04-27] MEDS: AMLODIPINE 5 MG TAB PO SCH (07:40)
[2019-04-27] MEDS: HYDROCODONE/APAP 10/325 TAB PO PRN ×3 (07:40→19:56)
[2019-04-27] MEDS: lisinopriL 20 MG TAB PO SCH ×2 (07:40→19:57)
[2019-04-27] MEDS: GABAPENTIN 400 MG CAP PO SCH ×3 (07:40→19:56)
[2019-04-27] MEDS: levETIRAcetam 500 MG TAB PO SCH ×2 (07:40→19:56)
[2019-04-27] MEDS: COLLAGENASE 30 GM OINTMENT TOP SCH (07:41)
[2019-04-27] MEDS: ENSURE HIGH PROTEIN 237 ML CAN PO SCH ×3 (07:41→16:13)
--- NOTE | 2019-04-27 09:27 | P.PN ---
Subjective Date of Service: 04/27/19 Primary Care Provider: Unknown Chief Complaint: Status post fall with cellulitis of the right knee No Acute events Pain is controlled well no fever no chills Review of Systems 10-point ROS is otherwise unremarkable General: Unremarkable Eyes: Unremarkable ENT: Unremarkable Physical Examination - Vital Signs Temperature: 97.2 F Blood Pressure: 130/58 Pulse: 90 Respirations: 18 Pulse Ox (%): 98 - Physical Exam General: Alert, In no apparent distress HEENT: Atraumatic, Normocephalic Neck: Supple Respiratory: Clear to auscultation bilaterally Cardiovascular: Normal pulses, Regular rate/rhythm Capillary refill: <2 Seconds Gastrointestinal: Soft and benign, W/out hepatosplenomegaly Musculoskeletal: No clubbing, Swelling, Tenderness, Other (Right knee wound VAC +) Integumentary: No rashes Neurological: Normal speech, Normal strength at 5/5 x4 extr Lymphatics: No axilla or inguinal lymphadenopathy External genitalia: Deferred Rectal: Deferred - Studies Medications List Reviewed: Yes Assessment & Plan - Problems (Diagnosis) (1) Cellulitis of knee, right Current Visit: Yes Status: Acute Plan: Right lower extremity cellulitis around the knee complicated with moderate size joint effusion and 6 x 3 x 3 Ding's cyst status post incision and drainage POD 8 currently on IV Vanc will continue that here in the hospital 01/20 wound cultures + for MSSA physical therapy eval appreciated CM for IV abx and wound care arrangement as patient is homeless. Need 2 weeks of IV abx in total (2) Alcohol abuse Onset Date: 11/18/17 Current Visit: No Status: Chronic Plan: Advised alcohol cessation (3) Hepatitis C Current Visit: No Status: Chronic Plan: Monitor LFTs Advised follow up as outpatient (4) Hx of myocardial infarction Current Visit: No Status: Chronic Plan: Continue home meds and titrate as needed (5) Hypertension Current Visit: No Status: Chronic Plan: Continue home meds and titrate as needed Qualifiers: Hypertension type: essential hypertension Qualified Code(s): I10 - Essential (primary) hypertension (6) Hypothyroidism Onset Date: 11/18/17 Current Visit: No Status: Chronic Plan: Continue home meds and titrate as needed Qualifiers: Hypothyroidism type: acquired Qualified Code(s): E03.9 - Hypothyroidism, unspecified (7) Seizures Current Visit: No Status: Chronic Plan: Continue home meds and titrate as needed (8) Tobacco abuse Onset Date: 11/18/17 Current Visit: No Status: Chronic Plan: Advised Smoking cessation Physician Review Additional Text: Impression: Right lower extremity cellulitis around the knee complicated with moderate size joint effusion and 6 x 3 x 3 Ding's cyst Hypertension Seizure disorder Hypothyroidism Obesity Plan: Right lower extremity cellulitis around the knee complicated with moderate size joint effusion and 6 x 3 x 3 Ding's cyst: Continue with antibiotic therapy. Case discussed with surgery. Case also discussed with orthopedics at request of surgery. No orthopedic intervention needed at this time. Orthopedic feels no septic arthritis at this time. No identifiable abscess noted at this time. Surgery plans for surgical intervention tomorrow. Likely debridement. If patient will require physical therapy after intervention. Patient does not qualify for skilled placement. Patient coming from [facility]. Must consider long-term placement. Will monitor closely. I will turn the service over to Dr. Bustamante tomorrow. I were go over the plan of care with her. Hypertension: Restart home medication. Seizure disorder: Restart home medication. Hypothyroidism: Restart home medication. Obesity: Address lifestyle modification education. Time Spent Managing Pts Care (In Minutes): 42
[2019-04-27] MEDS: VANCOMYCIN 1.5 GM in NA CHLORIDE 0.9% 500 ML IV SCH ×2 (13:23→23:44)
--- NOTE | 2019-04-27 17:26 | PN ---
Subjective: Patient lying in bed. No new acute event. Denies any headache, nausea, vomiting, chest pain, abdominal pain, constipation, or diarrhea. Objective: Vital Signs: Temperature 97, pulse rate 90, respirations 18, blood pressure 130/58. Lungs: Basal crackles. Heart: S1, S2 regular. Abdomen: Soft, nontender. Bowel sounds present. Extremities: Right leg with wound VAC in place. Medications: Currently on vancomycin and Santyl to the wound. Laboratory Data: WBC 2.3 from 17th. Assessment And Plan: Right knee abscess, infected with MSSA. Continue antibiotic and wound VAC for possibly another 6-7 days. We will follow patient closely. Keep leg elevated when possible. NF/MODL Voice ID: [id number] Report ID: [id number]
[2019-04-27] MEDS: QUETIAPINE 25 MG TAB PO SCH (19:57)
[2019-04-28] MEDS: HYDROCODONE/APAP 10/325 TAB PO PRN ×4 (02:42→22:37)
[2019-04-28 05:33] LABS: Basophils % 2.4 % (0-1.3); Hematocrit 38.9 % (36.0-45.0); Lymphocytes % 38.6 % (15.3-44.8); MPV 8.7 fL (7.6-11.3); RBC Red Blood Cell Count 4.02 M/uL (3.86-4.86)
[2019-04-28 05:40] LABS: BUN Blood Urea Nitrogen 11 mg/dL (7-18); Bicarbonate 30 mmol/L (21-32); Glucose Level 87 mg/dL (74-106); Potassium 3.6 mmol/L (3.5-5.1); Sodium Level 142 mmol/L (136-145)
[2019-04-28] MEDS: LEVOTHYROXINE SOD 0.075 MG TAB PO SCH (05:40)
[2019-04-28] MEDS: ENSURE HIGH PROTEIN 237 ML CAN PO SCH ×3 (08:52→17:14)
[2019-04-28] MEDS: lisinopriL 20 MG TAB PO SCH ×2 (08:53→21:18)
[2019-04-28] MEDS: AMLODIPINE 5 MG TAB PO SCH (08:53)
[2019-04-28] MEDS: GABAPENTIN 400 MG CAP PO SCH ×3 (08:53→21:19)
[2019-04-28] MEDS: levETIRAcetam 500 MG TAB PO SCH ×2 (08:53→21:19)
[2019-04-28] MEDS: COLLAGENASE 30 GM OINTMENT TOP SCH (08:54)
--- NOTE | 2019-04-28 09:29 | P.PN ---
Subjective Date of Service: 04/28/19 Primary Care Provider: Unknown Chief Complaint: Status post fall with cellulitis of the right knee Subjective: Improving (No complaints) Physical Examination - Vital Signs Temperature: 98.2 F Blood Pressure: 116/60 Pulse: 80 Respirations: 16 Pulse Ox (%): 92 - Physical Exam General: Alert, In no apparent distress, Cooperative Integumentary: Other (RIGHT knee WVAC removed, tissue granulating well, no infection) - Studies Medications List Reviewed: Yes Assessment And Plan - Plan 58 year old woman with infected wound of RIGHT knee skin - continue antibioitcs per Dr. Elmore - will likely transition to med honey soon - WVAC change today - recommend -- - continue WVAC with santyl daily for at least 1 more week Physician Review Additional Text: Impression: Right lower extremity cellulitis around the knee complicated with moderate size joint effusion and 6 x 3 x 3 Ding's cyst Hypertension Seizure disorder Hypothyroidism Obesity Plan: Right lower extremity cellulitis around the knee complicated with moderate size joint effusion and 6 x 3 x 3 Ding's cyst: Continue with antibiotic therapy. Case discussed with surgery. Case also discussed with orthopedics at request of surgery. No orthopedic intervention needed at this time. Orthopedic feels no septic arthritis at this time. No identifiable abscess noted at this time. Surgery plans for surgical intervention tomorrow. Likely debridement. If patient will require physical therapy after intervention. Patient does not qualify for skilled placement. Patient coming from [facility]. Must consider long-term placement. Will monitor closely. I will turn the service over to Dr. Bustamante tomorrow. I were go over the plan of care with her. Hypertension: Restart home medication. Seizure disorder: Restart home medication. Hypothyroidism: Restart home medication. Obesity: Address lifestyle modification education.
--- NOTE | 2019-04-28 10:15 | P.PN ---
Subjective Date of Service: 04/28/19 Primary Care Provider: Unknown Chief Complaint: Status post fall with cellulitis of the right knee No Acute events Pain is controlled well no fever no chills Review of Systems 10-point ROS is otherwise unremarkable Physical Examination - Vital Signs Temperature: 98.2 F Blood Pressure: 116/60 Pulse: 80 Respirations: 19 Pulse Ox (%): 92 - Physical Exam General: Alert, In no apparent distress HEENT: Atraumatic, Normocephalic Neck: Supple Respiratory: Clear to auscultation bilaterally Cardiovascular: Regular rate/rhythm, Normal S1 S2 Capillary refill: <2 Seconds Gastrointestinal: Soft and benign, W/out hepatosplenomegaly Musculoskeletal: No erythema, No warmth, Tenderness Integumentary: No rashes, Other (Right Knee Wound Vac +) Neurological: Normal strength at 5/5 x4 extr Lymphatics: No axilla or inguinal lymphadenopathy External genitalia: Deferred Rectal: Deferred - Studies Medications List Reviewed: Yes Assessment & Plan - Problems (Diagnosis) (1) Cellulitis of knee, right Current Visit: Yes Status: Acute Plan: Right lower extremity cellulitis around the knee complicated with moderate size joint effusion and 6 x 3 x 3 Ding's cyst status post incision and drainage POD 9 currently on IV Vanc will continue that here in the hospital 02/20 wound cultures + for MSSA physical therapy eval appreciated CM for IV abx and wound care arrangement as patient is homeless. Need 2 weeks of IV abx in total (2) Alcohol abuse Onset Date: 11/18/17 Current Visit: No Status: Chronic Plan: Advised alcohol cessation (3) Hepatitis C Current Visit: No Status: Chronic Plan: Monitor LFTs Advised follow up as outpatient (4) Hx of myocardial infarction Current Visit: No Status: Chronic Plan: Continue home meds and titrate as needed (5) Hypertension Current Visit: No Status: Chronic Plan: Continue home meds and titrate as needed Qualifiers: Hypertension type: essential hypertension Qualified Code(s): I10 - Essential (primary) hypertension (6) Hypothyroidism Onset Date: 11/18/17 Current Visit: No Status: Chronic Plan: Continue home meds and titrate as needed Qualifiers: Hypothyroidism type: acquired Qualified Code(s): E03.9 - Hypothyroidism, unspecified (7) Seizures Current Visit: No Status: Chronic Plan: Continue home meds and titrate as needed (8) Tobacco abuse Onset Date: 11/18/17 Current Visit: No Status: Chronic Plan: Advised Smoking cessation Physician Review Additional Text: Impression: Right lower extremity cellulitis around the knee complicated with moderate size joint effusion and 6 x 3 x 3 Ding's cyst Hypertension Seizure disorder Hypothyroidism Obesity Plan: Right lower extremity cellulitis around the knee complicated with moderate size joint effusion and 6 x 3 x 3 Ding's cyst: Continue with antibiotic therapy. Case discussed with surgery. Case also discussed with orthopedics at request of surgery. No orthopedic intervention needed at this time. Orthopedic feels no septic arthritis at this time. No identifiable abscess noted at this time. Surgery plans for surgical intervention tomorrow. Likely debridement. If patient will require physical therapy after intervention. Patient does not qualify for skilled placement. Patient coming from [facility]. Must consider long-term placement. Will monitor closely. I will turn the service over to Dr. Bustamante tomorrow. I were go over the plan of care with her. Hypertension: Restart home medication. Seizure disorder: Restart home medication. Hypothyroidism: Restart home medication. Obesity: Address lifestyle modification education. Time Spent Managing Pts Care (In Minutes): 41
[2019-04-28] MEDS: VANCOMYCIN 1.5 GM in NA CHLORIDE 0.9% 500 ML IV SCH (11:59)
[2019-04-28 13:37] LABS: Urine White Blood Cell Casts OK
[2019-04-28 13:38] LABS: Anisocytosis 1+; Blood Morphology Comment NOTED (NOT SEEN); Macrocytosis 1+; Platelet Estimate ADEQ
[2019-04-28] MEDS: QUETIAPINE 25 MG TAB PO SCH (21:00)
[2019-04-29] MEDS ORDERED: VANCOMYCIN 1.25 GM in NA CHLORIDE 0.9% 250 ML IV SCH ×2 (01:00→12:00)
[2019-04-29 05:20] LABS: Absolute Lymphocytes (CBC) 0.9 K/uL (0.7-4.9); Basophils % 2.3 % (0-1.3); Hematocrit 37.8 % (36.0-45.0); Lymphocytes % 40.1 % (15.3-44.8); MPV 8.8 fL (7.6-11.3); RBC Red Blood Cell Count 3.93 M/uL (3.86-4.86)
[2019-04-29] MEDS: LEVOTHYROXINE SOD 0.075 MG TAB PO SCH (05:28)
[2019-04-29] MEDS: HYDROCODONE/APAP 10/325 TAB PO PRN ×4 (05:28→20:52)
[2019-04-29 05:37] LABS: BUN Blood Urea Nitrogen 11 mg/dL (7-18); Bicarbonate 31 mmol/L (21-32); Glucose Level 85 mg/dL (74-106); Sodium Level 141 mmol/L (136-145)
[2019-04-29] MEDS: ENSURE HIGH PROTEIN 237 ML CAN PO SCH ×4 (09:00→17:00)
[2019-04-29] MEDS: AMLODIPINE 5 MG TAB PO SCH (09:03)
[2019-04-29] MEDS: GABAPENTIN 400 MG CAP PO SCH ×3 (09:03→20:53)
[2019-04-29] MEDS: levETIRAcetam 500 MG TAB PO SCH ×2 (09:03→20:52)
[2019-04-29] MEDS: lisinopriL 20 MG TAB PO SCH ×2 (09:04→20:52)
[2019-04-29] MEDS: COLLAGENASE 30 GM OINTMENT TOP SCH (09:08)
--- NOTE | 2019-04-29 11:53 | P.PN ---
Subjective Date of Service: 04/29/19 Primary Care Provider: Unknown Chief Complaint: Status post fall with cellulitis of the right knee Subjective: No new changes No Acute events Pain is controlled well no fever no chills Review of Systems 10-point ROS is otherwise unremarkable Respiratory: Unremarkable Cardiovascular: Unremarkable Physical Examination - Vital Signs Temperature: 97.5 F Blood Pressure: 123/77 Pulse: 71 Respirations: 18 Pulse Ox (%): 94 - Physical Exam General: Alert, In no apparent distress HEENT: Atraumatic, Normocephalic Neck: Supple, 2+ carotid pulse no bruit Respiratory: Clear to auscultation bilaterally, Normal air movement Cardiovascular: Normal pulses, Regular rate/rhythm Capillary refill: <2 Seconds Gastrointestinal: Soft and benign, W/out hepatosplenomegaly Musculoskeletal: No erythema, No tenderness, Other (Right Knee Wound Vac in Place ) Integumentary: No rashes Neurological: Normal strength at 5/5 x4 extr, Abnormal gait Lymphatics: No axilla or inguinal lymphadenopathy External genitalia: Deferred Rectal: Deferred - Studies Medications List Reviewed: Yes Assessment & Plan - Problems (Diagnosis) (1) Cellulitis of knee, right Current Visit: Yes Status: Acute Plan: Right lower extremity cellulitis around the knee complicated with moderate size joint effusion and 6 x 3 x 3 Ding's cyst status post incision and drainage POD 10 currently on IV Vanc will continue that here in the hospital wound cultures + for MSSA physical therapy eval appreciated CM for IV abx and wound care arrangement as patient is homeless. Need 2 weeks of IV abx in total (2) Alcohol abuse Onset Date: 11/18/17 Current Visit: No Status: Chronic Plan: Advised alcohol cessation (3) Hepatitis C Current Visit: No Status: Chronic Plan: Monitor LFTs Advised follow up as outpatient (4) Hx of myocardial infarction Current Visit: No Status: Chronic Plan: Continue home meds and titrate as needed (5) Hypertension Current Visit: No Status: Chronic Plan: Continue home meds and titrate as needed Qualifiers: Hypertension type: essential hypertension Qualified Code(s): I10 - Essential (primary) hypertension (6) Hypothyroidism Onset Date: 11/18/17 Current Visit: No Status: Chronic Plan: Continue home meds and titrate Qualifiers: Hypothyroidism type: acquired Qualified Code(s): E03.9 - Hypothyroidism, unspecified (7) Seizures Current Visit: No Status: Chronic Plan: Continue home meds Monitor closely for seizures (8) Tobacco abuse Onset Date: 11/18/17 Current Visit: No Status: Chronic Plan: Advised Smoking cessation Physician Review Additional Text: Impression: Right lower extremity cellulitis around the knee complicated with moderate size joint effusion and 6 x 3 x 3 Ding's cyst Hypertension Seizure disorder Hypothyroidism Obesity Plan: Right lower extremity cellulitis around the knee complicated with moderate size joint effusion and 6 x 3 x 3 Ding's cyst: Continue with antibiotic therapy. Case discussed with surgery. Case also discussed with orthopedics at request of surgery. No orthopedic intervention needed at this time. Orthopedic feels no septic arthritis at this time. No identifiable abscess noted at this time. Surgery plans for surgical intervention tomorrow. Likely debridement. If patient will require physical therapy after intervention. Patient does not qualify for skilled placement. Patient coming from [facility]. Must consider long-term placement. Will monitor closely. I will turn the service over to Dr. Bustamante tomorrow. I were go over the plan of care with her. Hypertension: Restart home medication. Seizure disorder: Restart home medication. Hypothyroidism: Restart home medication. Obesity: Address lifestyle modification education. Time Spent Managing Pts Care (In Minutes): 42
[2019-04-29] MEDS: VANCOMYCIN 1.5 GM in NA CHLORIDE 0.9% 500 ML IV SCH ×3 (12:21)
[2019-04-29] MEDS: QUETIAPINE 25 MG TAB PO SCH (20:53)
[2019-04-30] MEDS: LEVOTHYROXINE SOD 0.075 MG TAB PO SCH (06:04)
[2019-04-30] MEDS: VANCOMYCIN 1.5 GM in NA CHLORIDE 0.9% 500 ML IV SCH (06:04)
[2019-04-30] MEDS: HYDROCODONE/APAP 10/325 TAB PO PRN ×4 (06:15→21:29)
[2019-04-30] MEDS: GABAPENTIN 400 MG CAP PO SCH ×3 (08:25→20:34)
[2019-04-30] MEDS: lisinopriL 20 MG TAB PO SCH ×2 (08:25→20:33)
[2019-04-30] MEDS: levETIRAcetam 500 MG TAB PO SCH ×2 (08:25→20:34)
[2019-04-30] MEDS: AMLODIPINE 5 MG TAB PO SCH (08:26)
[2019-04-30] MEDS: ENSURE HIGH PROTEIN 237 ML CAN PO SCH ×2 (09:00→17:27)
[2019-04-30] MEDS: COLLAGENASE 30 GM OINTMENT TOP SCH (12:00)
--- NOTE | 2019-04-30 16:20 | P.PN ---
Subjective Date of Service: 04/30/19 Primary Care Provider: Unknown Chief Complaint: Status post fall with cellulitis of the right knee Subjective: Improving Physical Examination - Vital Signs Temperature: 97.4 F Blood Pressure: 115/70 Pulse: 75 Respirations: 16 Pulse Ox (%): 94 - Physical Exam General: Alert, In no apparent distress, Cooperative HEENT: Atraumatic Neck: Supple Respiratory: Clear to auscultation bilaterally, Normal air movement Cardiovascular: Normal pulses, Regular rate/rhythm Gastrointestinal: Normal bowel sounds, Soft and benign, Non-distended Musculoskeletal: No tenderness, No warmth Integumentary: No erythema, No warmth, No cyanosis Neurological: Normal speech, Normal strength at 5/5 x4 extr, Normal tone - Studies Medications List Reviewed: Yes Assessment & Plan Discharge Plan: Home Plan to discharge in: Greater than 2 days Physician Review Additional Text: Impression: Right lower extremity cellulitis around the knee complicated with moderate size joint effusion and 6 x 3 x 3 Ding's cyst Hypertension Seizure disorder Hypothyroidism Obesity Plan: Right lower extremity cellulitis around the knee complicated with moderate size joint effusion and 6 x 3 x 3 Ding's cyst: Continue with antibiotic therapy. Will need 3 more days of IV antibiotics. Will plan to DC on Friday. Continue with current meds. Hypertension: Continue medication. Seizure disorder: Continue medication. Hypothyroidism: Continue medication. Obesity: Address lifestyle modification education. Time Spent Managing Pts Care (In Minutes): 55
--- NOTE | 2019-04-30 16:29 | PN ---
Subjective: Patient lying in bed. No new acute event. Chart reviewed. Wound VAC has been disconti nued today. The patient is getting Promogran dressing to the wound site. Objective: Vital Signs: Temperature 97, respirations 18, blood pressure 124/69, pulse 69. Lungs: Basal crackles. Heart: S1, S2. Regular. Abdomen: Soft, nontender. Bowel sounds present. Extremities: No edema. Wound noted to the right knee area. Laboratory Data: Shows WBC 2.3, hemoglobin 13.0, platelets are 152. Assessment And Plan: Right knee abscess status post I and D, improving; leukopenia. The patient to continue vancomycin, can be switched to doxycycline on discharge. We will follow the patient as need ed. NF/MODL Voice ID: [id number] Report ID: [id number]
[2019-04-30] MEDS: QUETIAPINE 25 MG TAB PO SCH (20:38)
[2019-04-30] MEDS: MELATONIN 5 MG TABLET PO SCH (23:45)
[2019-05-01] MEDS: HYDROCODONE/APAP 10/325 TAB PO PRN ×5 (01:46→21:42)
[2019-05-01] MEDS: VANCOMYCIN 1.5 GM in NA CHLORIDE 0.9% 500 ML IV SCH ×2 (02:36→17:30)
[2019-05-01] MEDS: LEVOTHYROXINE SOD 0.075 MG TAB PO SCH (06:01)
[2019-05-01] MEDS: AMLODIPINE 5 MG TAB PO SCH (08:20)
[2019-05-01] MEDS: GABAPENTIN 400 MG CAP PO SCH ×3 (08:20→21:04)
[2019-05-01] MEDS: lisinopriL 20 MG TAB PO SCH ×2 (08:20→21:04)
[2019-05-01] MEDS: levETIRAcetam 500 MG TAB PO SCH ×2 (08:20→21:04)
[2019-05-01] MEDS: ENSURE HIGH PROTEIN 237 ML CAN PO SCH ×2 (08:21→21:06)
[2019-05-01] MEDS: COLLAGENASE 30 GM OINTMENT TOP SCH (08:22)
--- NOTE | 2019-05-01 12:12 | P.PN ---
Subjective Date of Service: 05/01/19 Primary Care Provider: Unknown Chief Complaint: Status post fall with cellulitis of the right knee Subjective: Doing well Physical Examination - Vital Signs Temperature: 97.1 F Blood Pressure: 110/64 Pulse: 63 Respirations: 19 Pulse Ox (%): 95 - Physical Exam General: Alert, In no apparent distress, Oriented x3, Cooperative HEENT: Atraumatic Neck: Supple Respiratory: Clear to auscultation bilaterally, Normal air movement Cardiovascular: Normal pulses, Regular rate/rhythm Integumentary: Other (Bandage to the right knee noted. No significant erythema, edema.) Neurological: Normal speech, Normal strength at 5/5 x4 extr, Normal tone, Normal affect - Studies Medications List Reviewed: Yes Assessment & Plan Discharge Plan: Home Plan to discharge in: 48 Hours Physician Review Additional Text: Impression: Right lower extremity cellulitis around the knee complicated with moderate size joint effusion and 6 x 3 x 3 Ding's cyst status post I and D Hypertension Seizure disorder Hypothyroidism Obesity, BMI 3rd Plan: Right lower extremity cellulitis around the knee complicated with moderate size joint effusion and 6 x 3 x 3 Ding's cyst status post I and D: Patient continues with IV vancomycin. Patient will require 2 more days of IV antibiotic therapy then can transition to oral doxycycline. Continue with current wound care. Anticipate discharge on Friday. Patient to discuss with son about staying with him until she is able to afford other options of housing after hospitalization. Hypertension: Overall stable. Continue medication. Seizure disorder: Stable. Continue medication. Hypothyroidism: Stable. Continue medication. Obesity, BMI 30: Continue to lifestyle modification education. Time Spent Managing Pts Care (In Minutes): 45
[2019-05-01] MEDS: ENOXAPARIN 40 MG/0.4 ML SQ SCH (17:30)
[2019-05-01] MEDS: QUETIAPINE 25 MG TAB PO SCH (21:00)
[2019-05-01] MEDS: MELATONIN 5 MG TABLET PO SCH (21:04)
[2019-05-02] MEDS: HYDROCODONE/APAP 10/325 TAB PO PRN ×4 (05:05→21:12)
[2019-05-02] MEDS: LEVOTHYROXINE SOD 0.075 MG TAB PO SCH (05:06)
[2019-05-02 06:03] LABS: Absolute Lymphocytes (CBC) 0.9 K/uL (0.7-4.9); Basophils % 2.9 % (0-1.3); Hematocrit 39.9 % (36.0-45.0); Lymphocytes % 38.4 % (15.3-44.8); MPV 9.3 fL (7.6-11.3); RBC Red Blood Cell Count 4.16 M/uL (3.86-4.86)
[2019-05-02 06:15] LABS: BUN Blood Urea Nitrogen 12 mg/dL (7-18); Bicarbonate 32 mmol/L (21-32); Glucose Level 95 mg/dL (74-106); Potassium 4.3 mmol/L (3.5-5.1); Sodium Level 141 mmol/L (136-145)
[2019-05-02] MEDS: AMLODIPINE 5 MG TAB PO SCH (09:00)
[2019-05-02] MEDS: lisinopriL 20 MG TAB PO SCH ×2 (09:00→21:12)
[2019-05-02] MEDS: GABAPENTIN 400 MG CAP PO SCH ×3 (09:01→21:13)
[2019-05-02] MEDS: ENSURE HIGH PROTEIN 237 ML CAN PO SCH ×2 (09:02→21:13)
[2019-05-02] MEDS: levETIRAcetam 500 MG TAB PO SCH ×2 (09:02→21:12)
[2019-05-02] MEDS: COLLAGENASE 30 GM OINTMENT TOP SCH (09:03)
--- NOTE | 2019-05-02 09:57 | P.PN ---
Subjective Date of Service: 05/02/19 Primary Care Provider: Unknown Chief Complaint: Status post fall with cellulitis of the right knee Subjective: Doing well Physical Examination - Vital Signs Temperature: 97.8 F Blood Pressure: 116/79 Pulse: 80 Respirations: 19 Pulse Ox (%): 96 - Physical Exam General: Alert, In no apparent distress, Oriented x3, Cooperative HEENT: Atraumatic Neck: Supple Respiratory: Clear to auscultation bilaterally, Normal air movement Cardiovascular: Normal pulses, Regular rate/rhythm Neurological: Normal speech, Normal strength at 5/5 x4 extr, Normal tone - Studies Medications List Reviewed: Yes Assessment & Plan Discharge Plan: Home Plan to discharge in: 24 Hours Physician Review Additional Text: Impression: Right lower extremity cellulitis around the knee complicated with moderate size joint effusion and 6 x 3 x 3 Ding's cyst status post I and D Hypertension Seizure disorder Hypothyroidism Obesity, BMI 3rd Plan: Right lower extremity cellulitis around the knee complicated with moderate size joint effusion and 6 x 3 x 3 Ding's cyst status post I and D: Patient continues with IV vancomycin. Plan for discharge tomorrow. Will transition to oral doxycycline at that time. Patient was able to speak to son. Patient plans to stay with son for a short duration. Continue wound care. Hypertension: Overall stable. Continue medication. Seizure disorder: Stable. Continue medication. Hypothyroidism: Stable. Continue medication. Obesity, BMI 30: Continue to lifestyle modification education. Time Spent Managing Pts Care (In Minutes): 30
[2019-05-02] MEDS: VANCOMYCIN 1.5 GM in NA CHLORIDE 0.9% 500 ML IV SCH (11:51)
[2019-05-02 12:35] LABS: Blood Morphology Comment NOT SEEN (NOT SEEN); Platelet Estimate ADEQ; Urine White Blood Cell Casts OK
[2019-05-02 15:06] VITALS: O2SAT 92
[2019-05-02] MEDS: ENOXAPARIN 40 MG/0.4 ML SQ SCH (16:03)
[2019-05-02] MEDS: MELATONIN 5 MG TABLET PO SCH (21:11)
[2019-05-03] MEDS: HYDROCODONE/APAP 10/325 TAB PO PRN ×2 (01:30→11:41)
[2019-05-03] MEDS: ACETAMINOPHEN 500 MG TAB PO PRN (06:13)
[2019-05-03] MEDS: LEVOTHYROXINE SOD 0.075 MG TAB PO SCH (06:13)
[2019-05-03] MEDS: VANCOMYCIN 1.5 GM in NA CHLORIDE 0.9% 500 ML IV SCH (06:14)
[2019-05-03] MEDS: ENSURE HIGH PROTEIN 237 ML CAN PO SCH (08:19)
[2019-05-03] MEDS: levETIRAcetam 500 MG TAB PO SCH (08:20)
[2019-05-03] MEDS: AMLODIPINE 5 MG TAB PO SCH (08:20)
[2019-05-03] MEDS: GABAPENTIN 400 MG CAP PO SCH (08:20)
[2019-05-03] MEDS: lisinopriL 20 MG TAB PO SCH (08:21)
[2019-05-03] MEDS: COLLAGENASE 30 GM OINTMENT TOP SCH (08:21)
--- NOTE | 2019-05-03 08:33 | P.DS ---
Admission Date: 04/18/19 Discharge Date: 05/03/19 Primary Care Provider: Unknown Disposition: ROUTINE DISCHARGE Discharge Condition: GOOD Reason for Admission: Status post fall with cellulitis of the right knee Consultations: Surgery-Dr. Juarez Infectious disease-Dr. Mcclure Procedures: Ct Scan: FINDINGS: No fracture is identified. There is no periosteal reaction. No cortical disruption or bone destructive process seen. Patient has mild medial and lateral compartment narrowing with marginal spurs. Spurring is seen along the articular margins of the patella. Small degenerative cystic changes are present deep to the cortex of the patella. Meniscus and ligamentous assessment cannot be made on CT imaging. A 6 x 3 x 3 centimeter popliteal fossa cyst is present medial side of the popliteal fossa. No CT findings of cyst rupture or hemorrhage. Patient has a moderately large joint effusion. There does appear to be a low level of enhancement of the synovial lining of the knee and lining of the Ding's cyst. No skeletal muscle abnormality. No abnormal vasculature seen. Edema changes are present along the anterior, lateral and posterior aspect of the knee and upper calf. Fluid is seen in the deep portion of the subcutaneous fat in the upper and mid calf level. No abscess or drainable fluid collections seen in the subcutaneous fatty tissues. No air or foreign body. IMPRESSION: Moderate-size joint effusion with a 6 x 3 x 3 Ding cyst in the medial popliteal fossa. Both structures showing low-level enhancement of the joint synovial lining and lucero of the Ding's cyst. The enhancement pattern may still be within range of normal. Low-level synovitis cannot be excluded. Fluid and edematous stranding are present in the subcutaneous fatty tissues along the anterior, lateral and posterior aspects of the leg. No abscess or drainable fluid collection. Venous doppler: FINDINGS: Right common femoral, superficial femoral, popliteal and right posterior tibial veins are compressible and demonstrate augmentation. Doppler demonstrates good flow. A 7 x 3 centimeter fluid collection posterior any IMPRESSION: No evidence of deep venous thrombosis involving the right lower extremity. 7 x 3 centimeter fluid collection posterior right knee could represent a Ding' s cyst or old hematoma Surgery: Date of procedure: 04/20/2019 Surgeon: Dr. Juarez Preop diagnosis: Right knee skin infection Postop diagnosis: Right knee skin infection Primary procedure: Debridement of right knee skin infection Estimated blood loss: Less than 10 cc Findings: Necrotic tissue with abscess cavities drained to surface extending to bursa Complications: None Medical Problem List: Right lower extremity/knee cellulitis around the knee complicated with moderate size joint effusion and 6 x 3 x 3 Ding's cyst status post I and D, wound culture positive for Staph aureus Hypertension Seizure disorder Hypothyroidism COPD Obesity, BMI 3rd Brief History of Present Illness: 58-year-old female presented to the emergency room with swelling and erythema to the right knee. Patient found to have right knee/lower extremity cellulitis with joint effusion. Patient admitted for further evaluation and treatment. Hospital Course: Patient presented with right lower extremity/knee cellulitis around the knee. This was complicated with a moderate size joint effusion and a 6 x 3 x 3 cm ding cyst. Patient was seen and evaluated by surgery. Patient required surgical debridement. Patient tolerated the procedure well. Wound culture positive for Staph aureus. Infectious Disease was consulted. It was recommended that she continue with IV antibiotic therapy-vancomycin for 14 days. At discharge she has completed the course of IV antibiotic therapy. At discharge she is without any significant pain, erythema. She is able to ambulate well. Patient will continue with current wound care. Patient will go home with doxycycline 100 mg twice daily for 7 days. A limited supply of tramadol 50 mg 1 pill 3 times a day as needed for pain will be provided. Patient will clean the wound with normal saline daily. She is to apply santyl daily. Recommend follow up with surgery in 1 week to follow up this hospitalization and continue her care. Patient with hypertension. Adjustments in blood pressure medication have been done due to low blood pressure. Patient previously on Norvasc 5 mg daily and lisinopril 20 mg twice daily. At discharge will discontinue Norvasc. Will continue with a lower dose of lisinopril 5 mg daily. She is to monitor blood pressures daily. She is to hold lisinopril if blood pressure systolic less than 120. Recommend to maintain blood pressures less 150/80. Further adjustment can be done by her PCP. Patient with seizure disorder. Patient will continue with her current medication-gabapentin 400 mg 3 times a day and Keppra 500 mg 1 pill twice daily. Patient with hypothyroidism. At discharge she will continue with her medication -levothyroxine 75 mcg daily. Patient with COPD. At discharge she may continue with Pro air 2 puffs 3 times a day as needed for shortness of breath. Vital Signs/Physical Exam: Temp Pulse Resp BP Pulse Ox 97.4 F 79 18 97/58 L 93 05/02/19 20:00 05/03/19 08:21 05/02/19 20:00 05/03/19 08:21 05/03/19 06:08 General: Alert, In no apparent distress, Oriented x3, Cooperative HEENT: Atraumatic Neck: Supple Respiratory: Clear to auscultation bilaterally, Normal air movement Cardiovascular: Normal pulses, Regular rate/rhythm Gastrointestinal: Normal bowel sounds, Soft and benign, Non-distended Integumentary: Other (Erythema to the right knee improved. No swelling noted. Bandage in place.) Neurological: Normal speech, Normal strength at 5/5 x4 extr, Normal tone, Normal affect Laboratory Data at Discharge: WBC 2.3 K/uL (4.3-10.9) L 05/02/19 05:16 Hgb 13.7 g/dL (12.0-15.0) 05/02/19 05:16 Hct 39.9 % (36.0-45.0) 05/02/19 05:16 Plt Count 147 K/uL (152-406) L 05/02/19 05:16 PT 12.9 SECONDS (9.5-12.5) H 04/19/19 05:24 INR 1.10 04/19/19 05:24 APTT 37.8 SECONDS (24.3-36.9) H 04/19/19 05:24 Sodium 141 mmol/L (136-145) 05/02/19 05:16 Potassium 4.3 mmol/L (3.5-5.1) 05/02/19 05:16 BUN 12 mg/dL (7-18) 05/02/19 05:16 Creatinine 0.63 mg/dL (0.55-1.3) 05/02/19 05:16 Glucose 95 mg/dL (74-106) 05/02/19 05:16 Magnesium 2.0 mg/dL (1.8-2.4) 05/02/19 05:16 Total Bilirubin 0.5 mg/dL (0.2-1.0) 04/25/19 05:30 AST 62 U/L (15-37) H 04/25/19 05:30 ALT 39 U/L (12-78) 04/25/19 05:30 Alkaline Phosphatase 57 U/L (45-117) 04/25/19 05:30 Home Medications: Albuterol Sulfate [Proair Hfa] 1 puff IH TID PRN #1 hfa.aer.[id number] 05/03/19 Collagenase [Santyl Ointment*] 1 appl TOP DAILY #1 tube 05/03/19 Doxycycline Hyclate 100 mg PO BID #14 tablet 05/03/19 Gabapentin 400 mg PO TID #90 capsule 05/03/19 Levetiracetam [Keppra] 500 mg PO BID #60 tablet 05/03/19 Levothyroxine [Synthroid*] 75 mcg PO [id number] #30 tab 05/03/19 Lisinopril 5 mg PO DAILY #30 tablet 05/03/19 Tramadol HCl [Ultram] 50 mg PO TID PRN #15 tablet 05/03/19 New Medications: Albuterol Sulfate [Proair Hfa] 1 puff IH TID PRN #1 hfa.aer.ad PRN Reason: Shortness Of Breath Collagenase [Santyl Ointment*] 1 appl TOP DAILY #1 tube Doxycycline Hyclate 100 mg PO BID #14 tablet Gabapentin 400 mg PO TID #90 capsule Levetiracetam [Keppra] 500 mg PO BID #60 tablet Levothyroxine [Synthroid*] 75 mcg PO [id number] #30 tab Lisinopril 5 mg PO DAILY #30 tablet Tramadol HCl [Ultram] 50 mg PO TID PRN #15 tablet PRN Reason: Pain Scale 2-4 (Mild) Patient Discharge Instructions: 1. Recommend to follow up with a PCP to follow up this hospitalization. 2. Patient presented with right lower extremity/knee cellulitis around the knee. This was complicated with a moderate size joint effusion and a 6 x 3 x 3 cm ding cyst. Patient was seen and evaluated by surgery. Patient required surgical debridement. Patient tolerated the procedure well. Wound culture positive for Staph aureus. Infectious Disease was consulted. It was recommended that she continue with IV antibiotic therapy- vancomycin for 14 days. At discharge she has completed the course of IV antibiotic therapy. At discharge she is without any significant pain, erythema. She is able to ambulate well. Patient will continue with current wound care. Patient will go home with doxycycline 100 mg twice daily for 7 days. A limited supply of tramadol 50 mg 1 pill 3 times a day as needed for pain will be provided. Patient will clean the wound with normal saline daily. She is to apply santyl daily. Recommend follow up with surgery in 1 week to follow up this hospitalization and continue her care. 3. Patient with hypertension. Adjustments in blood pressure medication have been done due to low blood pressure. Patient previously on Norvasc 5 mg daily and lisinopril 20 mg twice daily. At discharge will discontinue Norvasc. Will continue with a lower dose of lisinopril 5 mg daily. She is to monitor blood pressures daily. She is to hold lisinopril if blood pressure systolic less than 120. Recommend to maintain blood pressures less 150/80. Further adjustment can be done by her PCP. 4. Patient with seizure disorder. Patient will continue with her current medication-gabapentin 400 mg 3 times a day and Keppra 500 mg 1 pill twice daily. 5. Patient with hypothyroidism. At discharge she will continue with her medication-levothyroxine 75 mcg daily. 6. Patient with COPD. At discharge she may continue with Pro air 2 puffs 3 times a day as needed for shortness of breath. Diet: AHA Activity: Fall precautions Time spent managing pt's care (in minutes): 55
[2019-05-03 12:39] VITALS: BP 118/67; TEMP 98
== END 2019-05-03 14:19 | disposition home or self-care (01) | DRG 989 ==
LOC: ER 19:31 → 2ND 22:30
PROVIDERS: ADMIT Hospitalist; ATTEND Hospitalist
PROC: 0MDL0ZZ Extraction of Right Hip Bursa and Ligament, Open Approach (ICD-10-PCS; principal; 2019-04-20 08:00)
DX: L03.115 Cellulitis of right lower limb (principal); B95.61 Methicillin susceptible Staphylococcus aureus infection as the cause of diseases classified elsewhere; M25.461 Effusion, right knee; M71.21 Synovial cyst of popliteal space [Baker], right knee; I10 Essential (primary) hypertension; G40.909 Epilepsy, unspecified, not intractable, without status epilepticus; E03.9 Hypothyroidism, unspecified; J44.9 Chronic obstructive pulmonary disease, unspecified; E66.9 Obesity, unspecified; Z68.30 Body mass index [BMI] 30.0-30.9, adult; F10.10 Alcohol abuse, uncomplicated; B18.2 Chronic viral hepatitis C; I25.2 Old myocardial infarction; Z86.73 Personal history of transient ischemic attack (TIA), and cerebral infarction without residual deficits; Z88.0 Allergy status to penicillin
CPT/HCPCS: 36415; 73700; 80048; 80053; 80202; 81003; 82565; 83735; 85025; 85610; 85730; 87070; 87077; 87186; 87205; 88304; 93971; 96365; 96366; 96375; 97110; 97112; 97116; 97161; 97530; 99285; J1170; J1650; J2250; J2270; J2405; J2704; J3010; J3590; J7030; J7040; J7120; Q9967

== ENCOUNTER 2019-05-10 21:15 | Emergency (ER) | payer OTHER ==
--- OUTSIDE RECORDS SUMMARY | 2019-05-10 21:17 | XMS REPORT ---
:1960 [facility] Address [address] [place] [address] Dr. [address] [place] [id number] Care Team Providers Name Role Phone Unavailable Unavailable Unavailable Problems This patient has no known problems. Allergies, Adverse Reactions, Alerts This patient has no known allergies or adverse reactions. Medications This patient has no known medications.
[2019-05-10] MEDS ORDERED: HYDROCODONE/APAP 10/325 TAB ONE (22:00)
--- NOTE | 2019-05-11 00:56 | EDPHYS ---
Physician Documentation [facility] Name: Maisha eLo Age: 58 yrs Sex: Female : 1960 Arrival Date: 05/10/2019 Time: 21:30 Bed 9 Private MD: ED Physician Charles Gonzales HPI: 05/11 00:00 This 58 yrs old Female presents to ER via EMS with complaints of Fall injury pm1 to chin. 01:53 The patient or guardian reports injury. The complaints affect the chin. Context of pm1 injury: resulted from tripped on her walker. Onset: The symptoms/episode began/occurred this morning. Associated signs and symptoms: Loss of consciousness: This patient did not experience any loss of consciousness. Pertinent negatives: the patient has not experienced a loss of conciousness, headache, nausea, neck pain, vomiting. Severity of symptoms: in the emergency department the symptoms are unchanged. It is unknown whether or not the patient has recently seen a physician, PCP Goran. Historical: - Allergies: 05/10 21:36 PENICILLINS; bb - Home Meds: 21:36 amlodipine 5 mg tab 1 tab once daily [Active]; gabapentin 400 mg oral cap 1 cap 3 times bb per day [Active]; doxycycline hyclate 100 mg Oral cap 1 cap every 12 hours [Active]; levothyroxine 75 mcg oral tab 1 tab once daily [Active]; Keppra 500 mg Oral tab 2 times per day [Active]; lisinopril 5 mg oral tab 1 tab once daily [Active]; - PMHx: 21:36 ADD/ADHD; Cirrhosis; COPD; CVA; Left sided weakness; Fibromyalgia; Hypertension; bb Hypothyroidism; Myocardial infarction; Seizures; Bipolar disorder; - PSHx: 21:36 D\T\C; Right knee; bb - Immunization history:: Adult Immunizations up to date, Flu vaccine is up to date. - Social history:: Smoking status: Patient uses tobacco products, denies chronic smoking, but will smoke occasionally, Patient uses alcohol, occasionally. - Ebola Screening: : No symptoms or risks identified at this time. ROS: 05/11 01:53 Constitutional: Negative for fever, chills, and weight loss, Eyes: Negative for injury, pm1 pain, redness, and discharge, ENT: Negative for injury, pain, and discharge, Neck: Negative for injury, pain, and swelling, Cardiovascular: Negative for chest pain, palpitations, and edema, Respiratory: Negative for shortness of breath, cough, wheezing, and pleuritic chest pain, Abdomen/GI: Negative for abdominal pain, nausea, vomiting, diarrhea, and constipation, Back: Negative for injury and pain, MS/Extremity: Negative for injury and deformity. Neuro: Negative for headache, weakness, numbness, tingling, and seizure. Skin: Positive for ecchymosis, of the chin, Negative for laceration(s). Exam: 01:53 Constitutional: This is a well developed, well nourished patient who is awake, alert, pm1 and in no acute distress. 01:53 Eyes: Pupils equal round and reactive to light, extra-ocular motions intact. Lids and lashes normal. Conjunctiva and sclera are non-icteric and not injected. Cornea within normal limits. Periorbital areas with no swelling, redness, or edema. ENT: Nares patent. No nasal discharge, no septal abnormalities noted. Tympanic membranes are normal and external auditory canals are clear. Oropharynx with no redness, swelling, or masses, exudates, or evidence of obstruction, uvula midline. Mucous membranes moist. Neck: Trachea midline, no thyromegaly or masses palpated, and no cervical lymphadenopathy. Supple, full range of motion without nuchal rigidity, or vertebral point tenderness. No Meningismus. Chest/axilla: Normal chest wall appearance and motion. Nontender with no deformity. No lesions are appreciated. Cardiovascular: Regular rate and rhythm with a normal S1 and S2. No gallops, murmurs, or rubs. Normal PMI, no JVD. No pulse deficits. Respiratory: Lungs have equal breath sounds bilaterally, clear to auscultation and percussion. No rales, rhonchi or wheezes noted. No increased work of breathing, no retractions or nasal flaring. Abdomen/GI: Soft, non-tender, with normal bowel sounds. No distension or tympany. No guarding or rebound. No evidence of tenderness throughout. Back: No spinal tenderness. No costovertebral tenderness. Full range of motion. Skin: Warm, dry with normal turgor. Normal color with no rashes, no lesions, and no evidence of cellulitis. MS/ Extremity: Pulses equal, no cyanosis. Neurovascular intact. Full, normal range of motion. 01:53 Head/face: Noted is no obvious of injury or deformity except contusion, that is superficial, of the chin, ecchymosis, of the chin. 01:53 Neuro: Orientation: is normal, Motor: is normal, moves all fours, strength is normal, strength is 5/5 in all extremities. Vital Signs: 05/10 21:36 BP 108 / 77; Pulse 102; Resp 16 S; Temp 97.9(O); Pulse Ox 97% on R/A; Weight 81.65 kg bb (R); Height 5 ft. 5 in. (165.10 cm) (R); Pain 10/10; 22:20 BP 135 / 91; Pulse 96; Resp 18 S; Pulse Ox 96% on R/A; cc3 05/11 00:25 BP 109 / 85; Pulse 92; Resp 17 S; Pulse Ox 95% on R/A; cc3 01:30 BP 105 / 78; Pulse 89; Resp 16 S; Pulse Ox 96% on R/A; cc3 05/10 21:36 Body Mass Index 29.95 (81.65 kg, 165.10 cm) bb Ale Coma Score: 01:53 Eye Response: spontaneous(4). Verbal Response: oriented(5). Motor Response: obeys pm1 commands(6). Total: 15. MDM: 05/10 21:46 Patient medically screened. pm1 05/11 00:54 Data reviewed: vital signs. Data interpreted: Pulse oximetry: on room air is 96 %. pm1 Interpretation: normal. Counseling: I had a detailed discussion with the patient and/or guardian regarding: the historical points, exam findings, and any diagnostic results supporting the discharge/admit diagnosis, radiology results, the need for outpatient follow up, to return to the emergency department if symptoms worsen or persist or if there are any questions or concerns that arise at home. 05/10 21:48 Order name: CT Head C Spine pm1 05/10 21:48 Order name: CT Facial Bones W/O Con pm1 Administered Medications: 05/10 21:55 Drug: [place] 10 mg-325 mg 1 tabs Route: PO; cc3 22:00 Follow up: Response: No adverse reaction; RASS: Alert and Calm (0) cc3 05/11 01:25 Drug: TORadol 30 mg Route: IM; Site: left gluteus; cc3 01:52 Follow up: Response: No adverse reaction; Pain is decreased cc3 Disposition: 07:27 Co-signature as Attending Physician, Charles Gonzales MD I agree with the assessment and tw4 plan of care. Disposition: 05/11/19 00:55 Discharged to Home. Impression: Contusion of other part of head - Chin, Fall on same level from slipping, tripping and stumbling. - Condition is Stable. - Discharge Instructions: Facial or Scalp Contusion, Fall Prevention in the Home. - Medication Reconciliation Form, Thank You Letter, Antibiotic Education, Prescription Opioid Use form. - Follow up: Emergency Department; When: As needed; Reason: Worsening of condition. Follow up: Private Physician; When: 2 - 3 days; Reason: Recheck today's complaints, Continuance of care, Re-evaluation by your physician. - Problem is new. - Symptoms have improved. Signatures: Dispatcher [employer] EDMS Maggie Ambrosio RN RN bb Refugio Daly, LUMBER CUTTER LUMBER CUTTER pm1 Charles Gonzales MD MD tw4 Mary Overton cc3 Corrections: (The following items were deleted from the chart) 00:57 00:55 05/11/2019 00:55 Discharged to Home. Impression: Contusion of other part of head pm1 - Chin. Condition is Stable. Forms are Medication Reconciliation Form, Thank You Letter, Antibiotic Education, Prescription Opioid Use. Follow up: Emergency Department; When: As needed; Reason: Worsening of condition. Follow up: Private Physician; When: 2 - 3 days; Reason: Recheck today's complaints, Continuance of care, Re-evaluation by your physician. Problem is new. Symptoms have improved. pm1 06:22 00:57 05/11/2019 00:55 Discharged to Home. Impression: Contusion of other part of head bb - Chin; Fall on same level from slipping, tripping and stumbling. Condition is Stable. Discharge Instructions: Facial or Scalp Contusion, Fall Prevention in the Home. Forms are Medication Reconciliation Form, Thank You Letter, Antibiotic Education, Prescription Opioid Use. Follow up: Emergency Department; When: As needed; Reason: Worsening of condition. Follow up: Private Physician; When: 2 - 3 days; Reason: Recheck today's complaints, Continuance of care, Re-evaluation by your physician. Problem is new. Symptoms have improved. pm1
--- NOTE | 2019-05-11 00:56 | ER ---
Nurse's Notes [facility] Name: Maisha Leo Age: 58 yrs Sex: Female : 1960 Arrival Date: 05/10/2019 Time: 21:30 Bed 9 Private MD: Diagnosis: Contusion of other part of head-Chin;Fall on same level from slipping, tripping and stumbling Presentation: 05/10 21:32 Presenting complaint: EMS states: they were toned out for report of pt c/o generalized bb body pain, pt had fallen earlier in the day and hit her chin on the sink now has edema and ecchymosis. Transition of care: patient was not received from another setting of care. Onset of symptoms was May 10, 2019. Risk Assessment: Do you want to hurt yourself or someone else? Patient reports no desire to harm self or others. Initial Sepsis Screen: Does the patient meet any 2 criteria? No. Patient's initial sepsis screen is negative. Does the patient have a suspected source of infection? No. Patient's initial sepsis screen is negative. Care prior to arrival: None. 21:32 Method Of Arrival: EMS: [facility] bb 21:32 Acuity: ARTURO 3 bb Historical: - Allergies: 21:36 PENICILLINS; bb - Home Meds: 21:36 amlodipine 5 mg tab 1 tab once daily [Active]; gabapentin 400 mg oral cap 1 cap 3 times bb per day [Active]; doxycycline hyclate 100 mg Oral cap 1 cap every 12 hours [Active]; levothyroxine 75 mcg oral tab 1 tab once daily [Active]; Keppra 500 mg Oral tab 2 times per day [Active]; lisinopril 5 mg oral tab 1 tab once daily [Active]; - PMHx: 21:36 ADD/ADHD; Cirrhosis; COPD; CVA; Left sided weakness; Fibromyalgia; Hypertension; bb Hypothyroidism; Myocardial infarction; Seizures; Bipolar disorder; - PSHx: 21:36 D\T\C; Right knee; bb - Immunization history:: Adult Immunizations up to date, Flu vaccine is up to date. - Social history:: Smoking status: Patient uses tobacco products, denies chronic smoking, but will smoke occasionally, Patient uses alcohol, occasionally. - Ebola Screening: : No symptoms or risks identified at this time. Screenin:32 Abuse screen: Denies threats or abuse. Denies injuries from another. Nutritional cc3 screening: No deficits noted. Tuberculosis screening: No symptoms or risk factors identified. Fall Risk Ambulatory Aid- None/Bed Rest/Nurse Assist (0 pts). Gait- Normal/Bed Rest/Wheelchair (0 pts) Mental Status- Oriented to own ability (0 pts). Assessment: 21:32 General: Appears in no apparent distress. uncomfortable, Behavior is calm, cooperative, cc3 appropriate for age. Pain: Complains of pain in chin, back, bilateral legs Quality of pain is described as aching, Pain began today morning. Neuro: Level of Consciousness is awake, alert, obeys commands, Oriented to person, place, time, situation, Appropriate for age. Cardiovascular: Denies chest pain, Heart tones S1 S2 present Capillary refill < 3 seconds in bilateral fingers Patient's skin is warm and dry. Respiratory: Airway is patent Respiratory effort is even, unlabored, Respiratory pattern is regular, symmetrical, Breath sounds are clear bilaterally. GI: Abdomen is round non-distended, Bowel sounds present X 4 quads. Abd is soft and non tender X 4 quads. : No signs and/or symptoms were reported regarding the genitourinary system. EENT: abrasion to nasal bridge, hematoma to chin. Derm: Bruising that is dark purple, on chin abrasion to nasal bridge, skin peel lateral to right knee. Musculoskeletal: Range of motion: intact in all extremities, Swelling present in right knee. 22:21 Reassessment: Patient appears in no apparent distress at this time. Patient and/or cc3 family updated on plan of care and expected duration. Pain level reassessed. Patient is alert, oriented x 3, equal unlabored respirations, skin warm/dry/pink. Called the patient's son Dk as per patient request on his mobile number [phone] but no answer. 23:18 Reassessment: Patient appears in no apparent distress at this time. Patient and/or cc3 family updated on plan of care and expected duration. Pain level reassessed. Patient is alert, oriented x 3, equal unlabored respirations, skin warm/dry/pink. Patient denies pain at this time. 05/11 00:00 Reassessment: Patient appears in no apparent distress at this time. Patient resting cc3 comfortably with eyes close. 01:30 Reassessment: Patient appears in no apparent distress at this time. Patient and/or cc3 family updated on plan of care and expected duration. Pain level reassessed. Patient is alert, oriented x 3, equal unlabored respirations, skin warm/dry/pink. Patient's ordered for discharge home but no ride and said she has bus tickets but the buses are only available in the morning, charge nurse Maggie informed and agreed to keep the patient in fast track bed 9 until morning for the patient's bus ride. 04:11 Reassessment: Pt appears to be sleeping, eyes closed, resp unlabored, awaiting daylight bb to leave. 06:21 Reassessment: pt is A\T\O x 4, resp unlabored, pt assisted to lobby via wheelchair with bb radiographer technologist to take the bus. Vital Signs: 05/10 21:36 BP 108 / 77; Pulse 102; Resp 16 S; Temp 97.9(O); Pulse Ox 97% on R/A; Weight 81.65 kg bb (R); Height 5 ft. 5 in. (165.10 cm) (R); Pain 10/10; 22:20 BP 135 / 91; Pulse 96; Resp 18 S; Pulse Ox 96% on R/A; cc3 12/03 00:25 BP 109 / 85; Pulse 92; Resp 17 S; Pulse Ox 95% on R/A; cc3 01:30 BP 105 / 78; Pulse 89; Resp 16 S; Pulse Ox 96% on R/A; cc3 05/10 21:36 Body Mass Index 29.95 (81.65 kg, 165.10 cm) bb [place] Coma Score: 01:53 Eye Response: spontaneous(4). Verbal Response: oriented(5). Motor Response: obeys pm1 commands(6). Total: 15. ED Course: 05/10 21:30 Patient arrived in ED. bb 21:32 Mary Overton is Primary Nurse. cc3 21:32 Patient has correct armband on for positive identification. Placed in gown. Bed in low cc3 position. Call light in reach. Side rails up X2. Pulse ox on. NIBP on. 21:33 Triage completed. bb 21:36 Arm band placed on Patient placed in an exam room, on a stretcher, on pulse oximetry. bb 21:40 Refugio Daly NP is PHCP. pm1 21:40 Charles Gonzales MD is Attending Physician. pm1 22:18 CT Head C Spine In Process Unspecified. EDMS 22:18 CT Facial Bones W/O Con In Process Unspecified. EDMS 05/11 01:30 No provider procedures requiring assistance completed. Patient did not have IV access cc3 during this emergency room visit. Administered Medications: 05/10 21:55 Drug: [place] 10 mg-325 mg 1 tabs Route: PO; cc3 22:00 Follow up: Response: No adverse reaction; RASS: Alert and Calm (0) cc3 05/11 01:25 Drug: TORadol 30 mg Route: IM; Site: left gluteus; cc3 01:52 Follow up: Response: No adverse reaction; Pain is decreased cc3 Outcome: 00:55 Discharge ordered by MD. pm1 01:30 Discharged to home via wheelchair. cc3 01:30 Condition: stable 01:30 Discharge instructions given to patient, Instructed on discharge instructions, follow up and referral plans. Demonstrated understanding of instructions, follow-up care. 06:22 Patient left the ED. bb Signatures: Dispatcher [employer] EDID Maggie Ambrosio RN RN bb Refugio Daly NP POLICE LIEUTENANT pm1 Mary Overton cc3
[2019-05-11] MEDS ORDERED: KETOROLAC 30 MG/ML INJ ONE (01:26)
[2019-05-11 07:32] VITALS: TEMP 97.9
[2019-05-11 07:36] VITALS: BP 105/78; O2SAT 96
--- NOTE | 2019-05-11 10:28 | RAD REPORT ---
EXAM DESCRIPTION: Facial Bones W/ Mpr CLINICAL HISTORY: 58 years Female FACIAL PAIN COMPARISON: None TECHNIQUE: Images were obtained in axial, sagittal, and coronal planes. This exam was performed according to our departmental dose-optimization program which includes use of Automated Exposure Control, adjustment of the mA and/or kV according to patient size and/or use of i terative reconstruction technique. FINDINGS: Nasal bone deformity consistent with fractures of indeterminate age. Anterior maxillary sp ine is intact. No fractures orbits bilaterally. Zygomatic arches intact bilaterally. Intact globes bilaterally. No i ntraconal or extraconal abnormalities seen. No fractures pterygoid plates bilaterally. Unremarkable paranasal sinuses. No air-fluid levels seen. No mandibular fracture. Multiple dental abscesses remaining teeth. IMPRESSION: Nasal bone deformity likely related to more fractures. Multiple dental abscesses remaining teeth. Electronically signed by: Apple Shah MD 05/10/2019 11:02 PM BATTERY CHARGER Due to temporary technical issues with the PACS/Fluency reporting system, reports are being signed by the in house radiologist as a courtesy to ensure prompt reporting. The interpreting radiologist is f ully responsible for the content of the report.
--- NOTE | 2019-05-11 10:29 | RAD REPORT ---
EXAM DESCRIPTION: Head C Spine Mpr Wo Con CLINICAL HISTORY: 58 years Female, PAIN HEAD CT: TECHNIQUE: 5 mm axial images were obtained along with 3 mm reformatted coronal and sagittal images. This exam was performed according to our departmental dose-optimization program, which includes autom ated exposure control, adjustment of the mA and/or kV according to patient size and/or use of iterati ve reconstruction technique. COMPARISON: 11/17/2017. FINDINGS: No acute abnormal extracerebral fluid collections are demonstrated. The cortical sulci, ventricles, and cisterns are within normal limits. There is mild chronic bilateral periventricular migration of white matter changes. There is evidence of vascular calcifications about the internal carotid arteries and the left vertebr al artery. There are no areas of altered attenuation identified to suggest acute hemorrhage, infarction, or mass lesion. The visualized portions of the paranasal sinuses and mastoid air cells are clear. IMPRESSION: 1. No acute intracranial abnormalities. CERVICAL SPINE CT: TECHNIQUE: 2 mm axial images of the cervical spine were obtained without contrast. 2 mm coronal and sagittal reformatted images were obtained. COMPARISON: None. FINDINGS: BONY STRUCTURES: There is no evidence of fracture or subluxation. There is evidence of previous bilateral decompressive laminectomies with posterior spinal fusion exte nding from C3 through C6. Bilateral pedicle screws and interlocking bars are identified at these levels. Internal fixation hardware appears intact. There is lucency surrounding the pedicle screws at C6 suggesting possible loosening bilaterally. 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 SOFT TISSUES: Unremarkable. IMPRESSION: 1. No acute abnormalities. 2. Findings suggestive of loosening of the pedicle screws of C6 bilaterally. Electronically signed by: Gaetano Patricia MD 05/10/2019 10:53 PM QUALITY TECHNICIAN [employer] Due to temporary technical issues with the PACS/Fluency reporting system, reports are being signed by the in house radiologist as a courtesy to ensure prompt reporting. The interpreting radiologist is f ully responsible for the content of the report.
== END 2019-05-11 06:22 | disposition home or self-care (01) ==
LOC: ER 21:15
DX: S00.83XA Contusion of other part of head, initial encounter (principal); W01.0XXA Fall on same level from slipping, tripping and stumbling without subsequent striking against object, initial encounter; Y93.89 Activity, other specified; Y92.9 Unspecified place or not applicable; Z72.0 Tobacco use; Z88.0 Allergy status to penicillin; I10 Essential (primary) hypertension; E03.9 Hypothyroidism, unspecified; G40.909 Epilepsy, unspecified, not intractable, without status epilepticus
CPT/HCPCS: 70450; 70486; 72125; 76377; 96372; 99284

== ENCOUNTER 2019-05-13 20:27 | Emergency (ER) | payer OTHER ==
--- OUTSIDE RECORDS SUMMARY | 2019-05-13 20:31 | XMS REPORT ---
:1960 Author Organization [facility] Address [address] [place] [address] Dr. Hall [address] [place] [id number] Care Team Providers Name Role Phone Unavailable Unavailable Unavailable Problems This patient has no known problems. Allergies, Adverse Reactions, Alerts This patient has no known allergies or adverse reactions. Medications This patient has no known medications.
[2019-05-13] MEDS ORDERED: LEVETIRACETAM 500 MG/5 ML VIAL IV ONE (21:41)
[2019-05-13] MEDS ORDERED: ONDANSETRON 4 MG/2 ML VIAL ONE (21:42)
[2019-05-13] MEDS ORDERED: NA CHLORIDE 0.9% 1,000 ML ONE (21:42)
[2019-05-13] MEDS ORDERED: MORPHINE 4 MG/ML SYR ONE (21:42)
[2019-05-13] MEDS ORDERED: NA CHLORIDE 0.9% 250 ML ONE (21:42)
[2019-05-13 22:14] LABS: Urine Blood NEGATIVE (NEG); Urine Glucose NEGATIVE (NEG); Urine Protein NEGATIVE (NEG); Urine Specific Gravity <1.005 (1.005-1.030); Urine pH 5.5 (5.0-7.0)
[2019-05-13 22:17] LABS: Barbiturates NEGATIVE (NEGATIVE); Benzodiazepines NEGATIVE (NEGATIVE); Cocaine NEGATIVE (NEGATIVE); METHAMPHETAM NEGATIVE (NEGATIVE); Methadone NEGATIVE (NEGATIVE); Opiates NEGATIVE (NEGATIVE); Phencyclidine NEGATIVE (NEGATIVE); THC Cannibis NEGATIVE (NEGATIVE)
[2019-05-13 22:18] LABS: Absolute Lymphocytes (CBC) 1.9 K/uL (0.7-4.9); Basophils % 1.1 % (0-1.3); Hematocrit 45.8 % (36.0-45.0); Lymphocytes % 35.9 % (15.3-44.8); MPV 9.9 fL (7.6-11.3); RBC Red Blood Cell Count 4.83 M/uL (3.86-4.86)
[2019-05-13 22:21] LABS: Protime INR 1.19
--- NOTE | 2019-05-13 22:31 | RAD REPORT ---
EXAM DESCRIPTION: RAD - Chest Single View - 05/13/2019 10:26 pm CLINICAL HISTORY: COUGH Chest pain. COMPARISON: Chest Single View dated 03/11/2019; Chest Single View dated 11/17/2017; CHEST PA AND LAT 2 VIEW dated 03/22/2015; CHEST SINGLE VIEW dated 02/08/2014 FINDINGS: Portable technique limits examination quality. The lungs are grossly clear. The heart is upper limit of normal in size No displaced fractures.Hardwa re is noted in the lower cervical spine. IMPRESSION: No acute intrathoracic process suspected.
--- NOTE | 2019-05-13 22:33 | RAD REPORT ---
EXAM DESCRIPTION: RAD - Femur Right - 05/13/2019 10:24 pm CLINICAL HISTORY: PAIN COMPARISON: No comparisons FINDINGS: No acute fracture or dislocation is seen.
--- NOTE | 2019-05-13 22:33 | RAD REPORT ---
EXAM DESCRIPTION: RAD - Femur Left - 05/13/2019 10:24 pm CLINICAL HISTORY: PAIN COMPARISON: No comparisons FINDINGS: No acute fracture or dislocation is seen.
--- NOTE | 2019-05-13 22:35 | RAD REPORT ---
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 No acute fracture evident.
--- NOTE | 2019-05-13 22:37 | RAD REPORT ---
EXAM DESCRIPTION: RAD - Knee Left 3 View - 05/13/2019 10:24 pm CLINICAL HISTORY: PAIN COMPARISON: Knee Left 3 view dated 06/17/2013; Femur Left dated 05/13/2019 FINDINGS: Mild medial compartment space narrowing is present. A small suprapatellar joint effusion i s evident. No acute fractures seen.
[2019-05-13 22:42] LABS: ALT/SGPT 55 U/L (12-78); AST/SGOT 75 U/L (15-37); Albumin 3.1 g/dL (3.4-5.0); Alkaline Phosphatase 84 U/L (45-117); BUN Blood Urea Nitrogen 7 mg/dL (7-18); Bicarbonate 28 mmol/L (21-32); Bilirubin Direct 0.5 mg/dL (0-0.2); Bilirubin Total 1.2 mg/dL (0.2-1.0); Glucose Level 84 mg/dL (74-106); NT PRO-BNP 105 pg/mL (<125); Potassium 3.6 mmol/L (3.5-5.1); Protein, Total 8.4 g/dL (6.4-8.2); Sodium Level 140 mmol/L (136-145); Troponin (Emerg Dept Use Only) < 0.02 ng/mL (0.0-0.045)
[2019-05-13] MEDS ORDERED: ACETAMINOPHEN 325 MG TABLET ONE (22:45)
[2019-05-13] MEDS ORDERED: THIAMINE 200 MG/2 ML INJ ONE (22:46)
--- NOTE | 2019-05-14 03:33 | ER ---
Nurse's Notes [facility] Name: Maisha Leo Age: 58 yrs Sex: Female : 1960 Arrival Date: 05/13/2019 Time: 20:30 Bed 27 Private MD: Diagnosis: Epileptic seizures related to external causes, not intractable;Pain in left knee;Bipolar disorder;Alcohol abuse Presentation: 05/13 20:30 Presenting complaint: Patient states: She has a history of seizures, which she takes aj1 Keppra for. She had a seizure today and now she is having pain all over and a headache. Patient has bruising to her chin that she says is from a fall last week, which she was evaluated in this ER for after it happened. Patient states that she is mostly here because she is in a lot of pain right now. Transition of care: patient was not received from another setting of care. Onset of symptoms was 2018. Risk Assessment: Do you want to hurt yourself or someone else? Patient reports no desire to harm self or others. Initial Sepsis Screen: Does the patient meet any 2 criteria? No. Patient's initial sepsis screen is negative. Does the patient have a suspected source of infection? No. Patient's initial sepsis screen is negative. Care prior to arrival: None. 20:30 Method Of Arrival: EMS: [facility] aj1 20:30 Acuity: ARTURO 3 aj1 Triage Assessment: 20:33 General: Appears in no apparent distress. comfortable, Behavior is calm, cooperative, aj1 appropriate for age. Pain: Complains of pain in face, back, abdomen, right arm, left arm, right leg and left leg Pain does not radiate. Pain currently is 10 out of 10 on a pain scale. EENT: No signs and/or symptoms were reported regarding the EENT system. Neuro: Level of Consciousness is awake, alert, obeys commands, Oriented to person, place, time, situation, Speech is normal, Facial symmetry appears normal, Reports seizure [employer] ARCHITECT, headache. Cardiovascular: Patient's skin is warm and dry. Respiratory: Airway is patent Respiratory effort is even, unlabored, Respiratory pattern is regular, symmetrical. GI: No signs and/or symptoms were reported involving the gastrointestinal system. : No signs and/or symptoms were reported regarding the genitourinary system. Derm: No signs and/or symptoms reported regarding the dermatologic system. Skin is pink, warm \T\ dry. normal. Musculoskeletal: No signs and/or symptoms reported regarding the musculoskeletal system. Circulation, motion, and sensation intact. Historical: - Allergies: 20:33 PENICILLINS; aj1 - Home Meds: 20:33 amlodipine 5 mg tab 1 tab once daily [Active]; doxycycline hyclate 100 mg Oral cap 1 aj1 cap every 12 hours [Active]; gabapentin 400 mg Oral cap 1 cap 3 times per day [Active]; Keppra 500 mg Oral tab 2 times per day [Active]; levothyroxine 75 mcg tab 1 tab once daily [Active]; lisinopril 5 mg Oral tab 1 tab once daily [Active]; - PMHx: 20:33 ADD/ADHD; Bipolar disorder; Cirrhosis; COPD; CVA; Left sided weakness; Fibromyalgia; aj1 Hypertension; Hypothyroidism; Myocardial infarction; Seizures; - Immunization history:: Flu vaccine is up to date. - Social history:: Smoking status: Patient uses tobacco products, 2 cigarettes per day. - Ebola Screening: : Patient denies travel to an Ebola-affected area in the 21 days before illness onset. - Family history:: not pertinent. Screenin:35 Abuse screen: Denies threats or abuse. Denies injuries from another. Nutritional aj1 screening: No deficits noted. Tuberculosis screening: No symptoms or risk factors identified. 05/14 02:30 Fall Risk Fall in past 12 months (25 points). wh Assessment: 05/13 20:35 Reassessment: see triage assessment. aj1 21:30 Reassessment: Patient appears in no apparent distress at this time. No changes from aj1 previously documented assessment. Patient and/or family updated on plan of care and expected duration. Pain level reassessed. Patient is alert, oriented x 3, equal unlabored respirations, skin warm/dry/pink. 23:08 Reassessment: Patient appears in no apparent distress at this time. No changes from aj1 previously documented assessment. Patient and/or family updated on plan of care and expected duration. Pain level reassessed. Patient is alert, oriented x 3, equal unlabored respirations, skin warm/dry/pink. 05/14 00:00 Reassessment: Patient states that her pain is coming back. Notified Dr. Juares who aj1 states he will come and see the patient. 01:00 Reassessment: Patient appears in no apparent distress at this time. No changes from [facility] previously documented assessment. Patient and/or family updated on plan of care and expected duration. Pain level reassessed. Patient is alert, oriented x 3, equal unlabored respirations, skin warm/dry/pink. 02:01 Reassessment: Patient appears in no apparent distress at this time. No changes from [facility] previously documented assessment. Patient and/or family updated on plan of care and expected duration. Pain level reassessed. Patient is alert, oriented x 3, equal unlabored respirations, skin warm/dry/pink. 02:55 Reassessment: pt informed of wait for ride, pt stated he son will not be here she has a ak1 bus pass and will catch the bus in the morning. pt informed she can sleep until 0530 and then we wheel her to the bus stop. 03:15 Reassessment: Patient appears in no apparent distress at this time. No changes from previously documented assessment. Patient and/or family updated on plan of care and expected duration. Pain level reassessed. Patient is alert, oriented x 3, equal unlabored respirations, skin warm/dry/pink. Pt sleeping well no signs of distress noted. 04:00 Reassessment: Patient appears in no apparent distress at this time. No changes from previously documented assessment. Patient and/or family updated on plan of care and expected duration. Pain level reassessed. Patient is alert, oriented x 3, equal unlabored respirations, skin warm/dry/pink. PT DC awaiting bus ride for transport, Charge Nurse aware. 05:42 Reassessment: pt assisted to wheelchair to be assisted to bus stop for ride home. ak1 Vital Signs: 05/13 20:33 BP 118 / 76; Pulse 90; Resp 18; Temp 97.6; Pulse Ox 96% on R/A; Weight 81.65 kg (R); aj1 Height 5 ft. 5 in. (165.10 cm) (R); Pain 10/10; 21:30 BP 102 / 59; Pulse 89; Resp 18; Pulse Ox 100% on R/A; aj1 23:00 BP 126 / 82; Pulse 94; Resp 18; Pulse Ox 95% ; Pain 7/10; jp3 05/14 00:00 BP 116 / 62; Pulse 93; Resp 18; Pulse Ox 95% on R/A; aj1 01:00 BP 127 / 85; Pulse 94; Resp 18; Pulse Ox 96% on R/A; aj1 02:02 BP 129 / 84; Pulse 90; Resp 18; Pulse Ox 94% on R/A; aj1 03:30 BP 134 / 89; Pulse 92; Resp 16; Pulse Ox 94% on R/A; 05:45 BP 132 / 88; Pulse 106; Resp 20; Pulse Ox 92% on R/A; ak1 05/13 20:33 Body Mass Index 29.95 (81.65 kg, 165.10 cm) aj1 Ale Coma Score: 05/13 20:33 Eye Response: spontaneous(4). Verbal Response: oriented(5). Motor Response: obeys aj1 commands(6). Total: 15. ED Course: 20:30 Patient arrived in ED. aj1 20:32 Triage completed. aj1 20:33 Arm band placed on. aj1 20:35 Patient has correct armband on for positive identification. Bed in low position. Call aj1 light in reach. 20:35 Warm blanket given. Pillow given. Verbal reassurance given. catering staff member on. Pulse jp3 ox on. NIBP on. 20:35 Side rails up X 1. Side rails up X2. Seizure precautions initiated. jp3 20:35 No provider procedures requiring assistance completed. aj1 20:47 Mejia Juares MD is Attending Physician. [facility] 21:23 Alivia Myers, RN is Primary Nurse. aj1 21:50 Missed attempt(s): 20 gauge in right antecubital area. 22 gauge in right upper arm. jp3 Bleeding controlled, band aid applied, catheter tip intact. 21:55 Initial lab(s) drawn, by nh, sent to lab. Urine collected: clean catch specimen, clear, jp3 jenny colored, Legal drug screen obtained per protocol. Inserted saline lock: 22 gauge in left antecubital area, using aseptic technique. Blood collected. Patient maintains SpO2 saturation greater than 95% on room air. 22:15 X-ray(s) taken. jp3 22:24 Pelvis XRAY In Process Unspecified. EDMS 22:24 Femur Right XRAY In Process Unspecified. EDMS 22:24 Femur Left XRAY In Process Unspecified. EDMS 22:25 Knee Left 3 View XRAY In Process Unspecified. EDMS 22:25 XRAY Chest (1 view) In Process Unspecified. EDMS 22:42 Radiology exam delayed due to lab results not completed at this time. (BUN/Creatinine). nj 22:45 EKG done, by ED staff, reviewed by Mejia Juares MD. jp3 12 00:56 CT Traumagram (Head C Spine CAP W Con) In Process Unspecified. EDMS 03:32 Doe Ly MD is Referral Physician. godfrey 03:32 Adalberto Eaton MD is Referral Physician. godfrey 05:41 IV discontinued, intact, bleeding controlled, No redness/swelling at site. Pressure ak1 dressing applied. Administered Medications: 05/13 21:58 Drug: morphine 4 mg {Note: RASS score 0 patient is alert.} Route: IVP; Site: left aj1 antecubital; 23:30 Follow up: Response: No adverse reaction aj1 21:58 Drug: Zofran 4 mg Route: IVP; Site: left antecubital; aj1 23:30 Follow up: Response: No adverse reaction aj1 22:51 Drug: Thiamine 100 mg Route: IV; Rate: bolus; Site: left antecubital; aj1 22:55 Follow up: IV Status: Completed infusion aj1 22:51 Drug: Tylenol 650 mg Route: PO; aj1 23:30 Follow up: Response: No adverse reaction aj1 22:52 Drug: Keppra 1000 mg Route: IV; Rate: per protocol; Site: left antecubital; aj1 23:20 Follow up: IV Status: Completed infusion; IV Intake: 100ml aj1 22:52 Drug: NS 0.9% 1000 ml Route: IV; Rate: 1 bolus; Site: left antecubital; aj1 05/14 02:04 Follow up: IV Status: Completed infusion; IV Intake: 1000ml aj1 Intake: 05/13 23:20 IV: 100ml; Total: 100ml. aj1 05/14 02:04 IV: 1000ml; Total: 1100ml. aj1 Outcome: 03:32 Discharge ordered by . godfrey 03:42 Condition: improved ak1 03:42 Instructed on discharge instructions, follow up and referral plans. no drinking with medication, no driving heavy equipment, medication usage, Demonstrated understanding of instructions, follow-up care, Prescriptions given X 1. 05:45 Discharged to home via wheelchair, with walker and belongings. ak1 05:54 Patient left the ED. ak1 Addendum: 05/19/2019 08:19 Addendum: Culture Results: Positive urine culture. Patient was not prescribed i w antibiotics at discharge. Report given to ROBSON for further evaluation and then to financial assistant for follow up with patient. Phone call Attempt #1 son states pt symptoms have improved, no urinary complaints. Signatures: Dispatcher [employer] EDAlivia Cerda RN RN Mejia Carbajal MD MD cha Williams, Irene, RN RN Jenny Cruz RN RN ak1 Hao, Israel Garzon Jacob jp3 Corrections: (The following items were deleted from the chart) 05/14 00:30 00:29 Reassessment: Patient states that her pain is coming back. Notified Dr. Juares aj1 who states he will come and see the patient aj1
--- NOTE | 2019-05-14 03:33 | EDPHYS ---
Physician Documentation [facility] Name: Maisha Leo Age: 58 yrs Sex: Female : 1960 Arrival Date: 05/13/2019 Time: 20:30 Bed 27 Private MD: NELDA Physician Mejia Juares HPI: 05/13 21:33 This 58 yrs old Female presents to ER via EMS with complaints of Seizure, godfrey Pain All Over. 21:33 The patient presents after having a single isolated seizure, that lasted an unknown godfrey period of time. Character of seizure(s): Motor activity: generalized. Seizure onset: just prior to arrival. Context: occurred outdoors. Seizure Hx: Last seizure: The patient's last seizure "not sure". Associated injury: Left lower extremity: pain, swelling, Right lower extremity: right hip, lateral aspect of right thigh, right upper thigh and right quadriceps, decreased range of motion. Current symptoms: Currently, the patient is not experiencing any symptoms, pain. The patient has experienced similar episodes in the past, several times. Historical: - Allergies: 20:33 PENICILLINS; aj1 - Home Meds: 20:33 amlodipine 5 mg tab 1 tab once daily [Active]; doxycycline hyclate 100 mg Oral cap 1 aj1 cap every 12 hours [Active]; gabapentin 400 mg Oral cap 1 cap 3 times per day [Active]; Keppra 500 mg Oral tab 2 times per day [Active]; levothyroxine 75 mcg tab 1 tab once daily [Active]; lisinopril 5 mg Oral tab 1 tab once daily [Active]; - PMHx: 20:33 ADD/ADHD; Bipolar disorder; Cirrhosis; COPD; CVA; Left sided weakness; Fibromyalgia; aj1 Hypertension; Hypothyroidism; Myocardial infarction; Seizures; - Immunization history:: Flu vaccine is up to date. - Social history:: Smoking status: Patient uses tobacco products, 2 cigarettes per day. - Ebola Screening: : Patient denies travel to an Ebola-affected area in the 21 days before illness onset. - Family history:: not pertinent. ROS: 21:35 Constitutional: Negative for fever, chills, and weight loss, Eyes: Negative for injury, godfrey pain, redness, and discharge, ENT: Negative for injury, pain, and discharge, Neck: Negative for injury, pain, and swelling, Cardiovascular: Negative for chest pain, palpitations, and edema, Respiratory: Negative for shortness of breath, cough, wheezing, and pleuritic chest pain, Abdomen/GI: Negative for abdominal pain, nausea, vomiting, diarrhea, and constipation, Back: Negative for injury and pain, : Negative for injury, bleeding, discharge, and swelling, MS/Extremity: Negative for injury and deformity, Skin: Negative for injury, rash, and discoloration, Psych: Negative for depression, anxiety, suicide ideation, homicidal ideation, and hallucinations, Allergy/Immunology: Negative for hives, rash, and allergies, Endocrine: Negative for neck swelling, polydipsia, polyuria, polyphagia, and marked weight changes, Hematologic/Lymphatic: Negative for swollen nodes, abnormal bleeding, and unusual bruising. 21:35 Neuro: Positive for seizure activity. Exam: 21:35 Constitutional: This is a well developed, well nourished patient who is awake, alert, godfrey and in no acute distress. Head/Face: Normocephalic, atraumatic. Eyes: Pupils equal round and reactive to light, extra-ocular motions intact. Lids and lashes normal. Conjunctiva and sclera are non-icteric and not injected. Cornea within normal limits. Periorbital areas with no swelling, redness, or edema. ENT: Nares patent. No nasal discharge, no septal abnormalities noted. Tympanic membranes are normal and external auditory canals are clear. Oropharynx with no redness, swelling, or masses, exudates, or evidence of obstruction, uvula midline. Mucous membranes moist. Neck: Trachea midline, no thyromegaly or masses palpated, and no cervical lymphadenopathy. Supple, full range of motion without nuchal rigidity, or vertebral point tenderness. No Meningismus. Chest/axilla: Normal chest wall appearance and motion. Nontender with no deformity. No lesions are appreciated. Cardiovascular: Regular rate and rhythm with a normal S1 and S2. No gallops, murmurs, or rubs. Normal PMI, no JVD. No pulse deficits. Respiratory: Lungs have equal breath sounds bilaterally, clear to auscultation and percussion. No rales, rhonchi or wheezes noted. No increased work of breathing, no retractions or nasal flaring. Abdomen/GI: Soft, non-tender, with normal bowel sounds. No distension or tympany. No guarding or rebound. No evidence of tenderness throughout. Back: No spinal tenderness. No costovertebral tenderness. Full range of motion. Skin: Warm, dry with normal turgor. Normal color with no rashes, no lesions, and no evidence of cellulitis. Neuro: Awake and alert, GCS 15, oriented to person, place, time, and situation. Cranial nerves II-XII grossly intact. Motor strength 5/5 in all extremities. Sensory grossly intact. Cerebellar exam normal. Normal gait. Psych: Awake, alert, with orientation to person, place and time. Behavior, mood, and affect are within normal limits. 21:35 Musculoskeletal/extremity: Extremities: noted in the right leg and left leg: decreased ROM, pain. 21:35 Neuro: Orientation: is normal, appropriate for stated age, no acute changes, Mentation: is normal, appropriate for stated age, no acute changes, Memory: is normal, appropriate for stated age, no acute changes, Cranial nerves: grossly normal, is grossly normal based on the patient's age, no acute changes. Vital Signs: 20:33 BP 118 / 76; Pulse 90; Resp 18; Temp 97.6; Pulse Ox 96% on R/A; Weight 81.65 kg (R); aj1 Height 5 ft. 5 in. (165.10 cm) (R); Pain 10/10; 21:30 BP 102 / 59; Pulse 89; Resp 18; Pulse Ox 100% on R/A; aj1 23:00 BP 126 / 82; Pulse 94; Resp 18; Pulse Ox 95% ; Pain 7/10; jp3 05/14 00:00 BP 116 / 62; Pulse 93; Resp 18; Pulse Ox 95% on R/A; aj1 01:00 BP 127 / 85; Pulse 94; Resp 18; Pulse Ox 96% on R/A; aj1 02:02 BP 129 / 84; Pulse 90; Resp 18; Pulse Ox 94% on R/A; aj1 03:30 BP 134 / 89; Pulse 92; Resp 16; Pulse Ox 94% on R/A; 05:45 BP 132 / 88; Pulse 106; Resp 20; Pulse Ox 92% on R/A; ak1 05/13 20:33 Body Mass Index 29.95 (81.65 kg, 165.10 cm) [facility] [place] Coma Score: 05/13 20:33 Eye Response: spontaneous(4). Verbal Response: oriented(5). Motor Response: obeys aj1 commands(6). Total: 15. MDM: 20:47 Patient medically screened. [facility] 21:36 Data reviewed: vital signs, nurses notes, lab test result(s), EKG, radiologic studies, [facility] CT scan, plain films. 05/13 21:33 Order name: Basic Metabolic Panel; Complete Time: 23:07 [facility] 05/13 21:33 Order name: CBC with Diff; Complete Time: 22:40 [facility] 05/13 21:33 Order name: LFT's; Complete Time: 23:07 [facility] 05/13 21:33 Order name: Magnesium; Complete Time: 23:07 [facility] 05/13 21:33 Order name: NT PRO-BNP; Complete Time: 23:07 [facility] 05/13 21:33 Order name: PT-INR; Complete Time: 22:40 [facility] 05/13 21:33 Order name: Troponin (emerg Dept Use Only); Complete Time: 23:07 [facility] 05/13 21:33 Order name: Urine Culture [facility] 05/13 21:33 Order name: Acetaminophen; Complete Time: 23:07 [facility] 05/13 21:33 Order name: ETOH Level; Complete Time: 22:40 [facility] 05/13 21:33 Order name: Ptt, Activated; Complete Time: 22:40 [facility] 05/13 21:33 Order name: Salicylate; Complete Time: 23:07 [facility] 05/13 21:33 Order name: Urine Drug Screen; Complete Time: 22:40 [facility] 05/13 21:53 Order name: Urine Dipstick--Ancillary (enter results); Complete Time: 22:40 [facility] 05/13 21:33 Order name: XRAY Chest (1 view); Complete Time: 22:40 [facility] 05/13 21:33 Order name: EKG; Complete Time: 21:34 [facility] 05/13 21:33 Order name: Cardiac monitoring; Complete Time: 22:59 [facility] 05/13 21:33 Order name: EKG - Nurse/Tech; Complete Time: 22:59 [facility] 05/13 21:33 Order name: IV Saline Lock; Complete Time: 21:59 [facility] 05/13 21:33 Order name: Pelvis XRAY; Complete Time: 22:40 [facility] 05/13 21:33 Order name: Femur Right XRAY; Complete Time: 22:40 [facility] 05/13 21:33 Order name: Femur Left XRAY; Complete Time: 22:40 [facility] 05/13 21:33 Order name: Knee Left 3 View XRAY; Complete Time: 23:07 [facility] 05/13 21:33 Order name: CT Traumagram (Head C Spine CAP W Con) [facility] 05/13 21:33 Order name: Labs collected and sent; Complete Time: 21:59 [facility] 05/13 21:33 Order name: O2 Per Protocol; Complete Time: 21:59 [facility] 05/13 21:33 Order name: O2 Sat Monitoring; Complete Time: 21:59 [facility] 05/13 21:33 Order name: Urine Dipstick-Ancillary (obtain specimen); Complete Time: 21:58 [facility] 05/13 21:33 Order name: Seizure Precautions; Complete Time: 21:38 [facility] Administered Medications: 21:58 Drug: morphine 4 mg {Note: RASS score 0 patient is alert.} Route: IVP; Site: left aj antecubital; 23:30 Follow up: Response: No adverse reaction aj1 21:58 Drug: Zofran 4 mg Route: IVP; Site: left antecubital; aj1 23:30 Follow up: Response: No adverse reaction aj1 22:51 Drug: Thiamine 100 mg Route: IV; Rate: bolus; Site: left antecubital; aj1 22:55 Follow up: IV Status: Completed infusion aj1 22:51 Drug: Tylenol 650 mg Route: PO; aj1 23:30 Follow up: Response: No adverse reaction aj1 22:52 Drug: Keppra 1000 mg Route: IV; Rate: per protocol; Site: left antecubital; aj1 23:20 Follow up: IV Status: Completed infusion; IV Intake: 100ml aj1 22:52 Drug: NS 0.9% 1000 ml Route: IV; Rate: 1 bolus; Site: left antecubital; aj1 05/14 02:04 Follow up: IV Status: Completed infusion; IV Intake: 1000ml aj1 Disposition: 05/14/19 03:32 Discharged to Home. Impression: Epileptic seizures related to external causes, not intractable, Pain in left knee, Bipolar disorder, Alcohol abuse. - Condition is Stable. - Discharge Instructions: Alcohol Intoxication, Joint Pain, Arthritis, Fall Prevention in the Home, Bipolar Disorder, Musculoskeletal Pain, Seizure, Adult, Knee Pain, Alcohol Abuse and Nutrition, Seizure, Adult, [id number], Fall Prevention in the Home, [id number]. - Prescriptions for Keppra 500 mg Oral Tablet - take 1 tablet by ORAL route every 12 hours; 20 tablet. - Medication Reconciliation Form, Thank You Letter, Antibiotic Education, Prescription Opioid Use form. - Follow up: Private Physician; When: 2 - 3 days; Reason: Recheck today's complaints, Continuance of care, Re-evaluation by your physician. Follow up: Doe Ly; When: 2 - 3 days; Reason: Recheck today's complaints, Continuance of care, Re-evaluation by your physician. Follow up: Adalberto Eaton; When: 2 - 3 days; Reason: Recheck today's complaints, Re-evaluation by your physician. - Problem is new. - Symptoms have improved. Signatures: Dispatcher [employer] EDAlivia Cerda RN RN aj1 Mejia Juares MD MD cha Krenek, Amber RN RN ak1 Corrections: (The following items were deleted from the chart) 05:54 03:32 05/14/2019 03:32 Discharged to Home. Impression: Epileptic seizures related to ak1 external causes, not intractable; Pain in left knee; Bipolar disorder; Alcohol abuse. Condition is Stable. Discharge Instructions: Alcohol Intoxication, Joint Pain, Arthritis, Fall Prevention in the Home, Bipolar Disorder, Musculoskeletal Pain, Seizure, Adult, Knee Pain, Alcohol Abuse and Nutrition, Seizure, Adult, [id number], Fall Prevention in the Home, [id number]. Prescriptions for Keppra 500 mg Oral Tablet - take 1 tablet by ORAL route every 12 hours; 20 tablet. and Forms are Medication Reconciliation Form, Thank You Letter, Antibiotic Education, Prescription Opioid Use. Follow up: Private Physician; When: 2 - 3 days; Reason: Recheck today's complaints, Continuance of care, Re-evaluation by your physician. Follow up: Doe Ly; When: 2 - 3 days; Reason: Recheck today's complaints, Continuance of care, Re-evaluation by your physician. Follow up: Adalberto Eaton; When: 2 - 3 days; Reason: Recheck today's complaints, Re-evaluation by your physician. Problem is new. Symptoms have improved. godfrey
[2019-05-14 06:53] VITALS: TEMP 97.6
[2019-05-14 07:05] VITALS: BP 132/88; O2SAT 92
--- NOTE | 2019-05-14 08:57 | EKG ---
Test Date: 2019-05-13 Test Time: 22:34:54 [employer] Dr[employer]: MADELAINE MEASUREMENT RESULTS: Intervals: Rate: 96 MA: 180 QRSD: 84 QT: 398 QTc: 502 [place]: P: 71 MA: 180 QRS: 8 T: 68 INTERPRETIVE STATEMENTS: Normal sinus rhythm Biatrial enlargement Prolonged QT Abnormal ECG Compared to ECG 03/11/2019 13:59:36 Atrial abnormality now present Prolonged QT interval now present Sinus tachycardia no longer present Electronically Signed On 05-14-19 08:56:26 NURSE PRACTITIONER HOME ASSESSMENTS by Claudy Leon
--- NOTE | 2019-05-14 11:55 | RAD REPORT ---
EXAM DESCRIPTION: Head C Spine Cap W Con ADDENDUM #1 Separate order was created for chest, abdomen and pelvis images. Electronically signed by: Bogdan Forrester MD 05/15/2019 7:28 PM BLANKET CUTTER HAND End of Addendum CLINICAL HISTORY: PAIN COMPARISON: None. TECHNIQUE: CT HEAD AND CERVICAL SPINE W IV CONTRAST on 05/13/2019 9:33 PM BLANKET CUTTER HAND This exam was performed according to our departmental dose-optimization program, which includes autom ated exposure control, adjustment of the mA and/or kV according to patient size and/or use of iterati ve reconstruction technique. FINDINGS: Brain: There is no acute hemorrhage, mass effect or midline shift. Hurst-white differentiat ion is preserved. There is no hydrocephalus. There is no significant volume loss for age. The calvarium is intact. Orbits and globes are unremarkable. The paranasal sinuses are clear. Mastoid air cells are clear. Cervical Spine: There is no acute fracture. There is straightening of normal cervical lordosis. There are moderate osteophytes joint anterior aspects of the C5, C6 and C7 vertebral bodies. Posterior fus ion of C3-C6 was performed. There is moderate narrowing of the C5-6 and C6-7 discs. Vertebral body heights are preserved. Soft ti ssues are unremarkable. IMPRESSION: No acute postraumatic findings. Electronically signed by: Bogdan Forrester MD 05/14/2019 1:08 AM BLANKET CUTTER HAND Due to temporary technical issues with the PACS/Fluency reporting system, reports are being signed by the in house radiologist as a courtesy to ensure prompt reporting. The interpreting radiologist is f ully responsible for the content of the report.
== END 2019-05-14 05:54 | disposition home or self-care (01) ==
LOC: ER 20:27
DX: G40.509 Epileptic seizures related to external causes, not intractable, without status epilepticus (principal); M25.562 Pain in left knee; F10.10 Alcohol abuse, uncomplicated; F31.9 Bipolar disorder, unspecified; F17.210 Nicotine dependence, cigarettes, uncomplicated; I10 Essential (primary) hypertension; E03.9 Hypothyroidism, unspecified; I25.2 Old myocardial infarction; G40.909 Epilepsy, unspecified, not intractable, without status epilepticus; Z88.0 Allergy status to penicillin
CPT/HCPCS: 96365; 96361; 93005; 87088; 85025; 87086; 80048; 36415; 80320; 83735; 80329 ×2; 85610; 80076; 80307 ×8; 85730; 87077; 87186; 81003; 84484; 83880; 70450; 72125; 71260; 74177; 71045; 72170; 73562; 73552 ×2; 96375; 99285; Q9967; J3411; J1953; J7030 ×2; J2405

== ENCOUNTER 2019-05-20 19:36 | Emergency (ER) | payer OTHER ==
--- OUTSIDE RECORDS SUMMARY | 2019-05-20 19:39 | XMS REPORT ---
:1960 [facility] Address [address] [place] [address] Dr. Hall [address] [place] [id number] Care Team Providers Name Role Phone Unavailable Unavailable Unavailable Problems This patient has no known problems. Allergies, Adverse Reactions, Alerts This patient has no known allergies or adverse reactions. Medications This patient has no known medications.
[2019-05-20] MEDS ORDERED: KETOROLAC 30 MG/ML INJ ONE (20:48)
[2019-05-20 21:22] LABS: Absolute Lymphocytes (CBC) 1.6 K/uL (0.7-4.9); Basophils % 1.5 % (0-1.3); Lymphocytes % 34.9 % (15.3-44.8); MPV 9.4 fL (7.6-11.3); RBC Red Blood Cell Count 4.83 M/uL (3.86-4.86)
[2019-05-20 22:22] LABS: Protime INR 1.15
[2019-05-20 22:34] LABS: ALT/SGPT 71 U/L (12-78); AST/SGOT 99 U/L (15-37); Alkaline Phosphatase 85 U/L (45-117); BUN Blood Urea Nitrogen 7 mg/dL (7-18); Bicarbonate 25 mmol/L (21-32); Bilirubin Direct 0.3 mg/dL (0-0.2); Bilirubin Total 0.6 mg/dL (0.2-1.0); CKMB Creatine Kinase MB 2.8 ng/mL (0.3-3.6); Creatine Phosphokinase 78 U/L (26-192); Glucose Level 89 mg/dL (74-106); Lipase 103 U/L (73-393); Magnesium 2.2 mg/dL (1.8-2.4); Potassium 3.6 mmol/L (3.5-5.1); Protein, Total 9.3 g/dL (6.4-8.2); Sodium Level 142 mmol/L (136-145); Troponin (Emerg Dept Use Only) < 0.02 ng/mL (0.0-0.045)
--- NOTE | 2019-05-21 03:52 | ER ---
Nurse's Notes [facility] Name: Maisha Leo Age: 58 yrs Sex: Female : 1960 Arrival Date: 05/20/2019 Time: 19:46 Bed 2 Private MD: Diagnosis: Contusion of right lower leg;Contusion of left lower leg;unspecified fall initial encounter Presentation: 05/20 19:48 Presenting complaint: EMS states: "we were initially called for a possible stroke. when jd3 we arrived on the scene the pt was reporting pain in ANI arms and legs as well as neck and back pain because of a fall today. she did have some weakness in her left arm, but she has had a history of strokes with weakness in that arm.". Transition of care: patient was not received from another setting of care. Onset of symptoms was May 20, 2019 at 14:00. Risk Assessment: Do you want to hurt yourself or someone else? Patient reports no desire to harm self or others. Initial Sepsis Screen: Does the patient meet any 2 criteria? No. Patient's initial sepsis screen is negative. Does the patient have a suspected source of infection? No. Patient's initial sepsis screen is negative. Care prior to arrival: None. 19:48 Method Of Arrival: EMS: [facility] j 19:48 Acuity: ARTURO 2 jd3 19:51 No acute neurological deficit is noted. Pre-hospital glucose is not applicable to this jd3 patient. Triage Assessment: 19:55 The onset of the patients symptoms was May 20, 2019 at 14:00. jd3 19:55 Neuro: Reports pain in neck and back. jd3 Stroke Activation: Physician: Stroke Attending; Name: ; Notified At: ; Arrived At: Physician: Chief Stroke Resident; Name: ; Notified At: ; Arrived At: Physician: Stroke Resident; Name: ; Notified At: ; Arrived At: Physician: ED Attending; Name: ; Notified At: ; Arrived At: Physician: ED Resident; Name: ; Notified At: ; Arrived At: 19:51 provider reported to not call a code stroke. jd3 Historical: - Allergies: 19:48 PENICILLINS; jd3 - Home Meds: 19:48 amlodipine 5 mg tab 1 tab once daily [Active]; doxycycline hyclate 100 mg Oral cap 1 jd3 cap every 12 hours [Active]; gabapentin 400 mg Oral cap 1 cap 3 times per day [Active]; Keppra 500 mg Oral tab 2 times per day [Active]; levothyroxine 75 mcg tab 1 tab once daily [Active]; lisinopril 5 mg Oral tab 1 tab once daily [Active]; - PMHx: 19:48 ADD/ADHD; Bipolar disorder; Cirrhosis; COPD; CVA; Left sided weakness; Fibromyalgia; jd3 Hypertension; Hypothyroidism; Myocardial infarction; Seizures; - Immunization history:: Adult Immunizations up to date. - Social history:: Smoking status: Patient uses tobacco products, smokes one-half pack cigarettes per day. - Ebola Screening: : Patient negative for fever greater than or equal to 101.5 degrees Fahrenheit, and additional compatible Ebola Virus Disease symptoms. Screenin:55 Abuse screen: Denies threats or abuse. Nutritional screening: No deficits noted. jd3 Tuberculosis screening: No symptoms or risk factors identified. Fall Risk Ambulatory Aid- None/Bed Rest/Nurse Assist (0 pts). Gait- Normal/Bed Rest/Wheelchair (0 pts) Mental Status- Oriented to own ability (0 pts). Total Anderson Fall Scale indicates No Risk (0-24 pts). Assessment: 19:52 VAN Scoring: Arm Drift: Patients demonstrates NO arm weakness. Patient is VAN Negative. jd3 The patient has not been NPO before screening. The patient is alert, and able to follow commands. The patient does not exhibit slurred or garbled speech. The patient is not exhibiting difficulty speaking. The patient does not exhibit difficulty understanding words. The patient is able to swallow own secretions with no drooling or need for suction. Patient tolerated one teaspoon of water. No drooling, immediate coughing, gurgling, or clearing of the throat was noted. The patient tolerated 90mL of water. No drooling, immediate coughing, gurgling, or clearing of the throat was noted. The patient passed the bedside swallow screening. Oral medications may be given as ordered. Contact Physician for further diet orders. Provider notified of bedside swallow screening results: Charles Gonzales MD. T-PA (Activase) Screening: Contraindications: Patient reports onset of signs and symptoms of stroke greater than 6 hours ago: Yes. General: Appears in no apparent distress. uncomfortable, Behavior is calm, cooperative, appropriate for age. Pain: Complains of pain in back, right arm, left arm, right leg, left leg and neck Quality of pain is described as aching. Neuro: Level of Consciousness is awake, alert, obeys commands, Oriented to person, place, time, situation, Truck Crane Operator are weak on left Moves all extremities. Full function Speech is normal, Facial symmetry appears normal, Intact. Cardiovascular: Capillary refill < 3 seconds Patient's skin is warm and dry. Respiratory: Airway is patent Respiratory effort is even, unlabored, Respiratory pattern is regular, symmetrical, Denies cough, shortness of breath. GI: Abdomen is round non-distended, Patient currently denies nausea, vomiting. : No signs and/or symptoms were reported regarding the genitourinary system. EENT: No signs and/or symptoms were reported regarding the EENT system. Derm: Skin is intact, Skin is dry, Skin is normal, Skin temperature is warm. Musculoskeletal: Circulation, motion, and sensation intact. 20:29 Reassessment: Patient appears in no apparent distress at this time. No changes from jd3 previously documented assessment. Patient and/or family updated on plan of care and expected duration. Pain level reassessed. Patient is alert, oriented x 3, equal unlabored respirations, skin warm/dry/pink. 21:20 Reassessment: Patient appears in no apparent distress at this time. No changes from jd3 previously documented assessment. Patient and/or family updated on plan of care and expected duration. Pain level reassessed. Patient is alert, oriented x 3, equal unlabored respirations, skin warm/dry/pink. 22:21 Reassessment: Patient appears in no apparent distress at this time. Patient and/or jd3 family updated on plan of care and expected duration. Pain level reassessed. Patient is alert, oriented x 3, equal unlabored respirations, skin warm/dry/pink. Patient states feeling better. 23:27 Reassessment: Patient appears in no apparent distress at this time. Patient and/or jd3 family updated on plan of care and expected duration. Pain level reassessed. Patient is alert, oriented x 3, equal unlabored respirations, skin warm/dry/pink. pt reporting pain returning, provider notified. 05/21 00:35 Reassessment: Patient appears in no apparent distress at this time. No changes from jd3 previously documented assessment. Patient and/or family updated on plan of care and expected duration. Pain level reassessed. Patient is alert, oriented x 3, equal unlabored respirations, skin warm/dry/pink. 01:37 Reassessment: Patient appears in no apparent distress at this time. No changes from j previously documented assessment. Patient and/or family updated on plan of care and expected duration. Pain level reassessed. Patient is alert, oriented x 3, equal unlabored respirations, skin warm/dry/pink. 02:45 Reassessment: Patient appears in no apparent distress at this time. Patient and/or jd3 family updated on plan of care and expected duration. Pain level reassessed. Patient is alert, oriented x 3, equal unlabored respirations, skin warm/dry/pink. resting with eyes closed, even and unlabored respirations, call peter in reach, no distress noted at this time. 03:14 Reassessment: Patient appears in no apparent distress at this time. Patient and/or jd3 family updated on plan of care and expected duration. Pain level reassessed. Patient is alert, oriented x 3, equal unlabored respirations, skin warm/dry/pink. pt awake and reporting pain. provider notified. no new orders at this time. awaiting repeat troponin results. 04:19 Reassessment: Patient appears in no apparent distress at this time. Patient and/or jd3 family updated on plan of care and expected duration. Pain level reassessed. Patient is alert, oriented x 3, equal unlabored respirations, skin warm/dry/pink. pt reported understanding fo discharge instructions. Vital Signs: 05/20 19:50 BP 148 / 101; Pulse 74; Resp 20 S; Temp 97.1(TE); Pulse Ox 100% on R/A; Weight 81.65 kg jd3 (R); Height 5 ft. 5 in. (165.10 cm) (R); Pain 10/10; 20:29 BP 155 / 119; Pulse 81; Resp 19 S; Pulse Ox 97% on R/A; Pain 10/10; jd3 21:20 BP 141 / 101; Pulse 76; Resp 18 S; Pulse Ox 96% on R/A; jd3 22:21 BP 162 / 105; Pulse 79; Resp 17 S; Pulse Ox 98% on R/A; jd3 23:26 BP 154 / 115; Pulse 97; Resp 17 S; Pulse Ox 96% on R/A; Pain 10/10; jd3 05/21 00:36 BP 152 / 105; Pulse 99; Resp 18 S; Pulse Ox 95% on R/A; jd3 01:37 BP 148 / 98; Pulse 97; Resp 18 S; Pulse Ox 97% on R/A; jd3 03:12 BP 153 / 102; Pulse 107; Resp 20 S; Temp 98.2; Pulse Ox 95% on R/A; jd3 04:19 BP 138 / 80; Pulse 93; Resp 19 S; Pulse Ox 95% on R/A; jd3 05/20 19:50 Body Mass Index 29.95 (81.65 kg, 165.10 cm) jd3 NIH Stroke Scale Scores: 05/20 19:50 NIHSS Score: 0 jd3 ED Course: 19:46 Patient arrived in ED. jd3 19:50 Charles Gonzales MD is Attending Physician. tw4 19:50 Triage completed. jd3 19:51 Arm band placed on. jd3 19:55 Patient has correct armband on for positive identification. Placed in gown. Bed in low jd3 position. Call light in reach. Side rails up X2. 20:18 Caleb Sanford RN is Primary Nurse. jd3 20:18 Warm blanket given. jd3 20:46 EKG done, by ED staff, reviewed by Charles Gonzales MD. jd3 21:11 Inserted saline lock: 20 gauge in right antecubital area, using aseptic technique. jd3 Blood collected. 21:43 CT Head C Spine In Process Unspecified. EDMS 05/21 01:36 Repeat lab(s) drawn. by oh, sent to lab. rr5 04:17 No provider procedures requiring assistance completed. IV discontinued, intact, jd3 bleeding controlled, No redness/swelling at site. Pressure dressing applied. Administered Medications: 05/20 21:18 Drug: TORadol 30 mg Route: IVP; Site: right antecubital; jd3 22:15 Follow up: Response: No adverse reaction jd3 05/21 04:18 Drug: Motrin 800 mg Route: PO; jd3 04:18 Follow up: Response: Medication administered at discharge. jd3 Point of Care Testin:18 no orders for point of care glucose jd3 Ranges: Outcome: 03:51 Discharge ordered by . tw4 04:17 Discharged to home via wheelchair. jd3 04:17 Condition: stable 04:17 Discharge instructions given to patient, Instructed on discharge instructions, follow up and referral plans. medication usage, Demonstrated understanding of instructions, follow-up care, medications, Prescriptions given X 1. 04:20 Patient left the ED. jd3 NIH Stroke Scale - NIH Stroke Score Date: 05/20/2019 Time: 19:50 Total Score = 0 1a. Level of Consciousness (LOC) - 0(Alert) 1b. Level of Consciousness (LOC) (Year \\T\\ Age) - 0(Both) 1c. LOC Commands (Open \\T\\ Closes Eyes/Television Installer Helper) - 0(Both) 2. Best Gaze (Lateral Gaze Paresis) - 0(Normal) 3. Visual Field Loss - 0(No visual loss) 4. Facial Palsy - 0(Normal) 5a. Left Arm: Motor (10-second hold) - 0(No drift) 5b. Right Arm: Motor (10-second hold) - 0(No drift) 6a. Left Leg: Motor (5-second hold - always test supine) - 0(No drift) 6b. Right Leg: Motor (5-second hold - always test supine) - 0(No drift) 7. Limb Ataxia (finger/nose \\T\\ heel/catherine - test with eyes open) - 0(Absent) 8. Sensory Loss (pinprick arms/legs/face) - 0(Normal) 9. Best Language: Aphasia (description/naming/reading) - 0(No aphasia) 10. Dysarthria (speech clarity - read or repeat words) - 0(Normal) 11. Extinction and Inattention (visual/tactile/auditory/spatial/personal) - 0(No abnormality) Initials: jd3 Signatures: Dispatcher [employer] EDMS Caleb Sanford RN RN jd3 Charles Gonzales MD MD tw4 Krishan Reeves RN RN rr5 Corrections: (The following items were deleted from the chart) 05/20 19:56 19:48 Presenting complaint: EMS states: "we were initially called for a jd3 possible stroke. when we arrived on the scene the pt was reporting pain in ANI arms and legs as well as neck and back pain because of a fall today. she did have some weakness in her left arm, but she has had a history of strokes with weakness in that arm." jd3 19:58 19:52 Neuro: Level of Consciousness is awake, alert, obeys commands, Oriented jd3 to person, place, time, situation, Truck Crane Operator are equal bilaterally Moves all extremities. Full function Speech is normal, Facial symmetry appears normal, Intact jd3 19:59 19:52 NIHSS Score: 0 jd3 jd3 20:30 20:29 Reassessment: Patient appears in no apparent distress at this time. No jd3 changes from previously documented assessment. Patient and/or family updated on plan of care and expected duration. Pain level reassessed. Patient is alert, oriented x 3, equal unlabored respirations, skin warm/dry/pink. jd3
--- NOTE | 2019-05-21 03:53 | EDPHYS ---
Physician Documentation [facility] Name: Maisha Leo Age: 58 yrs Sex: Female : 1960 Arrival Date: 05/20/2019 Time: 19:46 Bed 2 Private MD: ED Physician Charles Gonzales HPI: 05/21 02:24 This 58 yrs old Female presents to ER via EMS with complaints of fall and tw4 weakness. 02:24 Details of fall: The patient fell from an upright position, while standing. Onset: The tw4 symptoms/episode began/occurred today. Associated injuries: The patient sustained right leg. Severity of symptoms: At their worst the symptoms were mild, in the emergency department the symptoms are unchanged. The patient has not experienced similar symptoms in the past. Historical: - Allergies: 05/20 19:48 PENICILLINS; jd3 - Home Meds: 19:48 amlodipine 5 mg tab 1 tab once daily [Active]; doxycycline hyclate 100 mg Oral cap 1 jd3 cap every 12 hours [Active]; gabapentin 400 mg Oral cap 1 cap 3 times per day [Active]; Keppra 500 mg Oral tab 2 times per day [Active]; levothyroxine 75 mcg tab 1 tab once daily [Active]; lisinopril 5 mg Oral tab 1 tab once daily [Active]; - PMHx: 19:48 ADD/ADHD; Bipolar disorder; Cirrhosis; COPD; CVA; Left sided weakness; Fibromyalgia; jd3 Hypertension; Hypothyroidism; Myocardial infarction; Seizures; - Immunization history:: Adult Immunizations up to date. - Social history:: Smoking status: Patient uses tobacco products, smokes one-half pack cigarettes per day. - Ebola Screening: : Patient negative for fever greater than or equal to 101.5 degrees Fahrenheit, and additional compatible Ebola Virus Disease symptoms. ROS: 05/21 02:26 Constitutional: Negative for fever, chills, and weight loss, Eyes: Negative for injury, tw4 pain, redness, and discharge, Cardiovascular: Negative for chest pain, palpitations, and edema, Respiratory: Negative for shortness of breath, cough, wheezing, and pleuritic chest pain, Abdomen/GI: Negative for abdominal pain, nausea, vomiting, diarrhea, and constipation, Back: Negative for injury and pain, Neuro: Negative for headache, weakness, numbness, tingling, and seizure, Psych: Negative for depression, anxiety, suicide ideation, homicidal ideation, and hallucinations. MS/extremity: Positive for contusion, pain, tenderness, Negative for abrasion, bite, erythema, laceration, paresthesias. Exam: 02:26 Constitutional: This is a well developed, well nourished patient who is awake, alert, tw4 and in no acute distress. Head/Face: Normocephalic, atraumatic. Chest/axilla: Normal chest wall appearance and motion. Nontender with no deformity. No lesions are appreciated. Cardiovascular: Regular rate and rhythm with a normal S1 and S2. No gallops, murmurs, or rubs. Normal PMI, no JVD. No pulse deficits. Respiratory: Lungs have equal breath sounds bilaterally, clear to auscultation and percussion. No rales, rhonchi or wheezes noted. No increased work of breathing, no retractions or nasal flaring. Abdomen/GI: Soft, non-tender, with normal bowel sounds. No distension or tympany. No guarding or rebound. No evidence of tenderness throughout. Back: No spinal tenderness. No costovertebral tenderness. Full range of motion. Psych: Awake, alert, with orientation to person, place and time. Behavior, mood, and affect are within normal limits. 02:26 Neuro: Awake and alert, GCS 15, oriented to person, place, time, and situation. Cranial nerves II-XII grossly intact. Motor strength 5/5 in all extremities. Sensory grossly intact. Cerebellar exam normal. Normal gait. 02:26 Musculoskeletal/extremity: Extremities: noted in the right leg: decreased ROM, ROM: no acute changes. Vital Signs: 12 19:50 BP 148 / 101; Pulse 74; Resp 20 S; Temp 97.1(TE); Pulse Ox 100% on R/A; Weight 81.65 kg jd3 (R); Height 5 ft. 5 in. (165.10 cm) (R); Pain 10/10; 20:29 BP 155 / 119; Pulse 81; Resp 19 S; Pulse Ox 97% on R/A; Pain 10/10; jd3 21:20 BP 141 / 101; Pulse 76; Resp 18 S; Pulse Ox 96% on R/A; jd3 22:21 BP 162 / 105; Pulse 79; Resp 17 S; Pulse Ox 98% on R/A; jd3 23:26 BP 154 / 115; Pulse 97; Resp 17 S; Pulse Ox 96% on R/A; Pain 10/10; jd3 05/21 00:36 BP 152 / 105; Pulse 99; Resp 18 S; Pulse Ox 95% on R/A; jd3 01:37 BP 148 / 98; Pulse 97; Resp 18 S; Pulse Ox 97% on R/A; jd3 03:12 BP 153 / 102; Pulse 107; Resp 20 S; Temp 98.2; Pulse Ox 95% on R/A; jd3 04:19 BP 138 / 80; Pulse 93; Resp 19 S; Pulse Ox 95% on R/A; jd3 05/20 19:50 Body Mass Index 29.95 (81.65 kg, 165.10 cm) jd3 NIH Stroke Scale Scores: 05/20 19:50 NIHSS Score: 0 j MDM: 19:50 Patient medically screened. tw4 05/21 02:26 Differential diagnosis: abrasion, closed head injury. Data reviewed: vital signs, tw4 nurses notes. Data interpreted: Pulse oximetry:. Counseling: I had a detailed discussion with the patient and/or guardian regarding: the historical points, exam findings, and any diagnostic results supporting the discharge/admit diagnosis. Special discussion: I discussed with the patient/guardian in detail that at this point there is no indication for admission to the hospital. It is understood, however, that if the symptoms persist or worsen the patient needs to return immediately for re-evaluation. 05/20 20:44 Order name: Basic Metabolic Panel tw4 05/20 20:44 Order name: CBC with Diff tw4 05/20 20:44 Order name: Ckmb tw4 05/20 20:44 Order name: CPK tw4 05/20 20:44 Order name: Hepatic Function tw4 05/20 20:44 Order name: Lipase tw4 05/20 20:44 Order name: CT Head C Spine tw4 05/20 20:44 Order name: Magnesium tw4 05/20 20:44 Order name: Protime (+inr) tw4 05/20 20:44 Order name: Ptt, Activated tw4 05/20 20:44 Order name: Troponin (emerg Dept Use Only) tw4 05/21 01:09 Order name: Troponin (emerg Dept Use Only) tw4 05/20 20:44 Order name: EKG; Complete Time: 20:46 tw4 05/20 20:44 Order name: Cardiac monitoring; Complete Time: 20:45 tw4 05/20 20:44 Order name: EKG - Nurse/Tech; Complete Time: 20:45 tw4 05/20 20:44 Order name: IV Saline Lock; Complete Time: 21:19 tw4 05/20 20:44 Order name: Labs collected and sent; Complete Time: 21:18 tw4 05/20 20:44 Order name: NPO; Complete Time: 20:45 tw4 05/20 20:44 Order name: O2 Per Protocol; Complete Time: 20:45 tw4 05/20 20:44 Order name: O2 Sat Monitoring; Complete Time: 20:45 tw4 EC/12 23:48 Rate is 73 beats/min. Rhythm is regular. QRS [place] is Normal. CO interval is normal. QRS tw4 interval is normal. QT interval is normal. No Q waves. T waves are Flattened in lead aVL. No ST changes noted. Clinical impression: Normal ECG. Interpreted by me. Reviewed by me. Administered Medications: 21:18 Drug: TORadol 30 mg Route: IVP; Site: right antecubital; j 22:15 Follow up: Response: No adverse reaction [facility] 05/21 04:18 Drug: Motrin 800 mg Route: PO; jd3 04:18 Follow up: Response: Medication administered at discharge. jd3 Point of Care Testin:18 no orders for point of care glucose j Ranges: Critical Glucose Levels:Adult <50 mg/dl or >400 mg/dl <40 mg/dl or >180 mg/dl Disposition: 05/21/19 03:51 Discharged to Home. Impression: Contusion of right lower leg, Contusion of left lower leg, unspecified fall initial encounter. - Condition is Stable. - Discharge Instructions: Contusion, Fall Prevention in the Home. - Prescriptions for Ibuprofen 800 mg Oral Tablet - take 1 tablet by ORAL route every 8 hours As needed take with food; 30 tablet. - Medication Reconciliation Form, Thank You Letter, Antibiotic Education, Prescription Opioid Use form. - Follow up: Private Physician; When: Upon discharge from the Emergency Department; Reason: Recheck today's complaints, Continuance of care. - Problem is new. - Symptoms have improved. NIH Stroke Scale - NIH Stroke Score Date: 05/20/2019 Time: 19:50 Total Score = 0 1a. Level of Consciousness (LOC) - 0(Alert) 1b. Level of Consciousness (LOC) (Year \T\ Age) - 0(Both) 1c. LOC Commands (Open \T\ Closes Eyes/Dean Of Faculty) - 0(Both) 2. Best Gaze (Lateral Gaze Paresis) - 0(Normal) 3. Visual Field Loss - 0(No visual loss) 4. Facial Palsy - 0(Normal) 5a. Left Arm: Motor (10-second hold) - 0(No drift) 5b. Right Arm: Motor (10-second hold) - 0(No drift) 6a. Left Leg: Motor (5-second hold - always test supine) - 0(No drift) 6b. Right Leg: Motor (5-second hold - always test supine) - 0(No drift) 7. Limb Ataxia (finger/nose \T\ heel/catherine - test with eyes open) - 0(Absent) 8. Sensory Loss (pinprick arms/legs/face) - 0(Normal) 9. Best Language: Aphasia (description/naming/reading) - 0(No aphasia) 10. Dysarthria (speech clarity - read or repeat words) - 0(Normal) 11. Extinction and Inattention (visual/tactile/auditory/spatial/personal) - 0(No abnormality) Initials: jd3 Signatures: Dispatcher [employer] Caleb Mcnamara RN RN jd3 Charles Gonzales MD MD tw4 Corrections: (The following items were deleted from the chart) 04:20 03:51 05/21/2019 03:51 Discharged to Home. Impression: Contusion of right lower jd3 leg; Contusion of left lower leg; unspecified fall initial encounter. Condition is Stable. Forms are Medication Reconciliation Form, Thank You Letter, Antibiotic Education, Prescription Opioid Use. Follow up: Private Physician; When: Upon discharge from the Emergency Department; Reason: Recheck today's complaints, Continuance of care. Problem is new. Symptoms have improved. tw4
[2019-05-21] MEDS ORDERED: IBUPROFEN 400 MG TAB ONE (04:03)
[2019-05-21 06:01] VITALS: TEMP 98.2; O2SAT 95
[2019-05-21 06:02] VITALS: BP 138/80
--- NOTE | 2019-05-21 07:08 | EKG ---
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
--- NOTE | 2019-05-21 10:54 | RAD REPORT ---
EXAM DESCRIPTION: CT - Head C Spine Mpr Wo Con - 05/20/2019 9:42 pm CLINICAL HISTORY: The patient is 58 years old and is Female; WEAKNESS TECHNIQUE: Axial computed tomography images of the head/brain and cervical spine without intravenous contrast. Sagittal and coronal reformatted images were created and reviewed. This CT exam was pe rformed using one or more of the following dose reduction techniques: automated exposure control, a djustment of the mA and/or kV according to patient size, and/or use of iterative reconstruction techn ique. DLP: 938 mGy*cm COMPARISON: None. FINDINGS: BRAIN: Prominence of the cerebral sulci and cisterns. Confluent periventricular and subcortical white matter hypodensity. No hemorrhage. VENTRICLES: Prominence of the ventricular system without hydrocephalus. SKULL: No acute fracture. SINUSES: Paranasal sinuses are clear. MASTOID AIR CELLS: Unremarkable as visualized. No mastoid effusion. ORBITS: Globes and orbits are unremarkable. AUDITORY SYSTEM: Soft tissue densities in the external auditory canal, likely cerumen. VERTEBRAE: C3-C6 laminectomy and posterior segment effusion. Reversal of cervical lordosis. No acute fracture. DISCS/SPINAL CANAL/NEURAL FORAMINA: No acute findings. No spinal canal stenosis. SOFT TISSUES: Unremarkable. VASCULATURE: Intracranial vascular calcifications. THYROID: Diffuse enlargement of the thyroid. LUNG APICES: Apical lung zones are clear. IMPRESSION: 1. No acute intracranial hemorrhage, hydrocephalus or herniation. 2. No cervical spine fracture or subluxation. 3. Cerebral volume loss and chronic small vessel ischemic changes. If persistent clinical concern f or acute ischemia, consider MRI brain without contrast for further evaluation. 4. C3-C6 laminectomy and posterior segment effusion. 5. Diffuse heterogenous enlargement of the thyroid. Recommend thyroid US. Reference: J Am Leonor Radiol. 2015 Jul;12(2): 143-50. Electronically signed by: Apollo Ledesma DO 05/20/2019 10:13 PM BRAN MIXER Due to temporary technical issues with the PACS/Fluency reporting system, reports are being signed by the in house radiologist as a courtesy to ensure prompt reporting. The interpreting radiologist is f ully responsible for the content of the report.
== END 2019-05-21 04:20 | disposition home or self-care (01) ==
LOC: ER 19:36
DX: S80.11XA Contusion of right lower leg, initial encounter (principal); S80.12XA Contusion of left lower leg, initial encounter; W19.XXXA Unspecified fall, initial encounter; Y93.9 Activity, unspecified; Y92.9 Unspecified place or not applicable; I10 Essential (primary) hypertension; I25.2 Old myocardial infarction; E03.9 Hypothyroidism, unspecified; G40.909 Epilepsy, unspecified, not intractable, without status epilepticus; F31.9 Bipolar disorder, unspecified; F17.210 Nicotine dependence, cigarettes, uncomplicated; Z88.0 Allergy status to penicillin
CPT/HCPCS: 36415; 70450; 72125; 80048; 80076; 82550; 82553; 83690; 83735; 84484; 85025; 85610; 85730; 93005; 96374; 99284

== ENCOUNTER 2021-08-08 11:23 | Emergency (ER) | payer OTHER ==
--- OUTSIDE RECORDS SUMMARY | 2021-08-08 11:27 | XMS REPORT | Continuity of Care Document ---
:1960 Author Organization [facility] t Address [address] [place] [address] Care Team Providers Name Role Phone Doctor Unassigned, Name Attending Clinician Unavailable Goran MARTIN, Ovi Attending Clinician Payers Payer Name Policy Type Policy Number Effective Date Expiration Date S ource Problems Condition Condition Condition Status Onset Resolution Last Treating Co mments Source Name Details Category Date Date Treatment Clinician Date Essential Essential Disease Active Uni vers hypertensi hypertensi 7-26 it y of on on 00:00: [address] Obesity Obesity Disease Active Univers (BMI (BMI 5-25 ity of 30-39.9) 30-39.9) 00:00: [place] 00 [facility] Osteomyeli Osteomyeli Disease Active U nivers tis tis 5-24 ity of 00:00: [address] Positive Positive Disease Active 2015-06 Unive rs serology serology 1-15 ity of for for 00:00: [place] syphilis syphilis 00 Medica Branch 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 1-15 it y of ve ve 00:00: [place] 00 [facility] Trichomoni Trichomoni Disease Active 2015-06 U nivers asis asis 0-26 ity of 00:00: [place] 00 [facility] Tobacco Tobacco Disease Active 2015-06 Univers use use 0-24 ity of 00:00: [place] 00 [facility] Arthralgia Arthralgia Disease Active 2015-06 U nivers of of 0-24 ity of multiple multiple 00:00: [place] joints joints 00 [facility] Seizure Seizure Disease Active 2015-06 Univers disorder disorder 0-24 ity of 00:00: [place] 00 Medical Branch Accelerate Accelerate Disease Active 2015-06 U nivers d d 0-24 ity of hypertensi [place]ens[place] Chronic Chronic Disease Active 2015-06 Univers neck pain neck pain 0-24 ity of 00:00: [place] 00 Medical Branch Chronic Chronic Disease Active Univers liver liver 6-17 ity of disease disease 00:00: [place] and and 00 Medical cirrhosis cirrhosis Bran ch Pain of Pain of Disease Active Univers upper upper 6-17 ity of extremity, extremity, [place] unspec[place] unspecifie 00 Me dical d d Branch laterality laterality Alcohol Alcohol Disease Active Univers use use 6-17 ity of 00:00: [place] 00 Medical Branch Thrombocyt Thrombocyt Disease Active U nivers openia openia 6-17 ity of 00:00: [place] [facility] Cervical Cervical Disease Active Unive rs stenosis stenosis 3-16 ity of of spinal of spinal [place] 00 [place] [facility] Bipolar I Bipolar I Disease Active Uni vers disorder, disorder, 8-31 ity of most most 00:00: [place] recent recent 00 Medical episode episode Branch (or (or current) current) depressed, depressed, severe, severe, without without mention of mention of psychotic psychotic behavior behavior HLD HLD Disease Active Univers (hyperlipi (hyperlipi it y of demia) demia) [facility] Hepatic Hepatic Disease Active Univers cirrhosis cirrhosis ity of [facility] Acquired Acquired Disease Active Unive rs hypothyroi hypothyroi it y of dism dism [facility] Allergies, Adverse Reactions, Alerts Allergy Allergy Status Severity Reaction(s) Onset Inactive Treating Comm ents Source Name Type Date Date Clinician Penicill Propensi Active Rash Univer s ins ty to 8 ity of adverse 00:00: [place] reaction 00 [facility] Social History Social Habit Start Date Stop Date Quantity Comments Source History of tobacco Cigarette Smoker University of use [facility] Alcohol intake [place] of [facility] Sex Assigned At Universit y of [facility] Cigarettes smoked 2019-01-01 2019-01-01 Univers ity of current (pack per 00:00:00 00:00:00 [facility] ) - Reported Branch Cigarette 2019-01-01 2019-01-01 University of pack-years 00:00:00 00:00:00 [facility] Tobacco Comment 2014-12-26 2014-12-26 smokes 6 cig/day Uni versity of 00:00:00 00:00:00 [facility] Smoking Status Start Date Stop Date Source Current every day smoker 2019-01-01 00:00:00 Uni versity of [facility] Medications Ordered Filled Start Stop Current Ordering Indication Dosage Frequency Signature Comments Components Source Medication Medication Date Date Medication? Clinician (SIG) Name Name amLODIPine Yes [id number] 5mg Take 1 U nivers 5 mg tablet 7-26 tablet by ity of 00:00: mouth daily. Medical Branch cyclobenzap Yes [id number] 10mg Take 1 Univers rine 10 mg 7-26 tablet by ity of tablet 00:00: mouth (three) Medical times [place] daily as needed for Muscle Spasms. gabapentin Yes [id number] 400mg Take 1 Univers 400 mg 7-26 capsule by ity of capsule 00:00: mouth (three) Medical times [place] daily. amLODIPine Yes [id number] 5mg Take 1 U nivers 5 mg tablet 7-26 tablet by ity of 00:00: mouth 00 daily. Medical Branch cyclobenzap Yes [id number] 10mg Take 1 Univers rine 10 mg 7-26 tablet by ity of tablet 00:00: mouth (three) Medical times [place] daily as needed for Muscle Spasms. gabapentin Yes [id number] 400mg Take 1 Univers 400 mg 7-26 capsule by ity of capsule 00:00: mouth (three) Medical times [place] daily. amLODIPine Yes [id number] 5mg Take 1 U nivers 5 mg tablet 7-26 tablet by ity of 00:00: mouth 00 daily. Medical Branch cyclobenzap Yes [id number] 10mg Take 1 Univers rine 10 mg 7-26 tablet by ity of tablet 00:00: mouth (three) Medical times [place] daily as needed for Muscle Spasms. gabapentin Yes [id number] 400mg Take 1 Univers 400 mg 7-26 capsule by ity of capsule 00:00: mouth (three) Medical times Branch daily. LEVOTHYROXI Yes TAKE 1 Univ ers NE 75 mcg 5-07 TABLET BY ity o f tablet 00:00: MOUTH EVERY Medical MORNING Branch LEVETIRACET 2018-0 Yes TAKE 1 Univ ers AM 500 mg 5-07 TABLET BY ity o f tablet 00:00: MOUTH [place] 00 TWICE A Medical DAY Branch LISINOPRIL 2018-0 Yes TAKE 1 Unive rs 40 mg 5-07 TABLET BY ity of tablet 00:00: MOUTH [place] 00 EVERY DAY Medical Branch LEVOTHYROXI 2018-0 Yes TAKE 1 Univ ers NE 75 mcg 5-07 TABLET BY ity o f tablet 00:00: MOUTH [place] 00 EVERY Medical MORNING Branch LEVETIRACET 2018-0 Yes TAKE 1 Univ ers AM 500 mg 5-07 TABLET BY ity o f tablet 00:00: MOUTH 00 TWICE A Medical DAY Branch LISINOPRIL 2018-0 Yes TAKE 1 Unive rs 40 mg 5-07 TABLET BY ity of tablet 00:00: MOUTH 00 EVERY DAY Medical Branch LEVOTHYROXI 2018-0 Yes TAKE 1 Univ ers NE 75 mcg 5-07 TABLET BY ity o f tablet 00:00: MOUTH 00 EVERY Medical MORNING Branch LEVETIRACET 2018-0 Yes TAKE 1 Univ ers AM 500 mg 5-07 TABLET BY ity o f tablet 00:00: MOUTH 00 TWICE A Medical DAY Branch AMLODIPINE 2018-0 Yes TAKE 1 Unive rs 5 mg tablet 5-07 TABLET BY ity of 00:00: MOUTH [place] 00 EVERY DAY Medical Branch LISINOPRIL 2018-0 Yes TAKE 1 Unive rs 40 mg 5-07 TABLET BY ity of tablet 00:00: MOUTH 00 EVERY DAY Medical Branch LEVOTHYROXI 2018-0 Yes TAKE 1 Univ ers NE 75 mcg 5-07 TABLET BY ity o f tablet 00:00: MOUTH 00 EVERY Medical MORNING Branch LEVETIRACET 2018-0 Yes TAKE 1 Univ ers AM 500 mg 5-07 TABLET BY ity o f tablet 00:00: MOUTH 00 TWICE A Medical DAY Branch LISINOPRIL 2018-0 Yes TAKE 1 Unive rs 40 mg 5-07 TABLET BY ity of tablet 00:00: MOUTH 00 EVERY DAY Medical Branch AMLODIPINE 2018-0 2019- No TAKE 1 Univ ers 5 mg tablet 5-07 07-26 TABLET BY it y of 00:00: 00:00 MOUTH [place] 00 :00 EVERY DAY Medical Branch METOPROLOL 2018-0 Yes TAKE 1 Unive rs TARTRATE 50 3-12 TABLET BY ity of mg tablet 00:00: MOUTH 00 TWICE A Medical DAY Branch METOPROLOL 2018-0 2019- No TAKE 1 Univ ers TARTRATE 50 3-12 07-26 TABLET BY it y of mg tablet 00:00: 00:00 MOUTH [place] 00 :00 TWICE A Medical DAY Branch GABAPENTIN 2016- Yes TAKE 3 Unive rs 300 mg 0-27 CAPSULES ity of capsule 00:00: BY MOUTH [place] 00 THREE Medical TIMES Branch DAILY. GABAPENTIN 2016- 2019- No TAKE 3 Univ ers 300 mg 0-27 07-26 CAPSULES ity of capsule 00:00: 00:00 BY MOUTH [place] 00 :00 THREE Medical TIMES Branch DAILY. Walker 2017-0 Yes [id number] Use as Unive rs (ULTRA-LIGH 6-27 directed ity of T ROLLATOR) 00:00: [place] [address] Medical Branch Walker 2017-0 Yes [id number] Use as Unive rs (ULTRA-LIGH 6-27 directed ity of T ROLLATOR) 00:00: [place] [address] Medical Branch Walker 2017-0 Yes [id number] Use as Unive rs (ULTRA-LIGH 6-27 directed ity of T ROLLATOR) 00:00: [place] [address] Medical Branch Walker 2017-0 Yes [id number] Use as Unive rs (ULTRA-LIGH 6-27 directed ity of T ROLLATOR) 00:00: [place] [address] Medical Branch metroNIDAZO 2017-0 Yes 500mg Take 1 Uni vers LE 500 mg 6-12 tablet by ity o f tablet 00:00: mouth [place] (two) Medical times Branch daily. metroNIDAZO 2017-0 Yes 500mg Take 1 Uni vers LE 500 mg 6-12 tablet by ity o f tablet 00:00: mouth [place] (two) Medical times Branch daily. metroNIDAZO 2017-0 Yes 500mg Take 1 Uni vers LE 500 mg 6-12 tablet by ity o f tablet 00:00: mouth [place] (two) Medical times Branch daily. metroNIDAZO 2017-0 Yes 500mg Take 1 Uni vers LE 500 mg 6-12 tablet by ity o f tablet 00:00: mouth 2 [place] (two) Medical times Branch daily. metroNIDAZO 2017-0 Yes 500mg Take 1 Uni vers LE 500 mg 6-12 tablet by ity o f tablet 00:00: mouth 2 [place] (two) Medical times Branch daily. metroNIDAZO 2017-0 Yes 500mg Take 1 Uni vers LE 500 mg 6-12 tablet by ity o f tablet 00:00: mouth 2 (two) Medical times Branch daily. metroNIDAZO 2017- Yes 500mg Take 1 Uni vers LE 500 mg 6-12 tablet by ity o f tablet 00:00: mouth 2 (two) Medical times Branch daily. metroNIDAZO Yes 500mg Take 1 Uni vers LE 500 mg 6-12 tablet by ity o f tablet 00:00: mouth 2 (two) Medical times Branch daily. aspirin 81 Yes 81mg Take 81 mg U nivers mg chewable 6-09 by mouth ity of tablet 20:00: daily. [address] aspirin 81 Yes 81mg Take 81 mg U nivers mg chewable 6-09 by mouth ity of tablet 20:00: daily. [address] aspirin 81 Yes 81mg Take 81 mg U nivers mg chewable 6-09 by mouth ity of tablet 20:00: daily. [address] aspirin 81 Yes 81mg Take 81 mg U nivers mg chewable 6-09 by mouth ity of tablet 20:00: daily. [address] Branch KCL 10 mEq Yes [id number] 10meq Take 1 Univers tablet 6-09 tablet by ity of 00:00: mouth 00 daily. Medical Branch KCL 10 mEq Yes [id number] 10meq Take 1 Univers tablet 6-09 tablet by ity of 00:00: mouth 00 daily. Medical Branch KCL 10 mEq Yes [id number] 10meq Take 1 Univers tablet 6-09 tablet by ity of 00:00: mouth [place] 00 daily. Medical Branch KCL 10 mEq Yes [id number] 10meq Take 1 Univers tablet 6-09 tablet by ity of 00:00: mouth 00 daily. Medical Branch baclofen 10 Yes Univer s mg tablet 11-12 ity of 00:00: [place] 00 Medical Branch baclofen 10 2019- No Unive rs mg tablet 11-12 ity of 00:00: 00:00 [place] 00 :00 Medical Branch mupirocin 2 Yes Apply to U nivers % ointment 11-01 area(s) 3 ity of 00:00: (three) [place] 00 times Medical daily. Branch mupirocin 2 2016-0 Yes Apply to U nivers % ointment 5-26 area(s) 3 ity of 00:00: (three) [place] 00 times Medical daily. Branch mupirocin 2 2016-0 Yes Apply to U nivers % ointment 5-26 area(s) 3 ity of 00:00: (three) [place] 00 times Medical daily. Branch mupirocin 2 2016-0 Yes Apply to U nivers % ointment 5-26 area(s) 3 ity of 00:00: (three) [place] 00 times Medical daily. Branch acetaminoph 2015-06 Yes [id number] 1{tbl} Take 1 Univers en-codeine 1-17 07 tablet by ity of (TYLENOL 00:00: mouth [place] #3) 300-30 00 every 6 Medica l mg tablet (six) Branch hours as needed for Pain (scale 7-10) or Pain unrelieved by non-narcot ic analgesics . acetaminoph 2015-06 2019- No [id number] 1{tbl} Take 1 Univers en-codeine 1-17 07-26 07 tablet by ity of (TYLENOL 00:00: 00:00 mouth [place] #3) 300-30 00 :00 every 6 Medica l mg tablet (six) Branch hours as needed for Pain (scale 7-10) or Pain unrelieved by non-narcot ic analgesics . cyclobenzap 2015-06 Yes 10mg Take 1 Univ ers rine 0-24 tablet by ity of (FLEXERIL) 00:00: [place] 3 [place] 10 mg 00 (three) Medical tablet times Branch daily as needed for Muscle Spasms. cyclobenzap 2015-06 2019- No 10mg Take 1 Uni vers rine 0-24 07-26 tablet by ity of (FLEXERIL) 00:00: 00:00 mouth 3 [place] as 10 mg 00 :00 (three) Medical tablet times Branch daily as needed for Muscle Spasms. Immunizations Ordered Filled Immunization Date Status Comments [facility] e Immunization Name Name TDAP (ADACEL) 2016-04-25 Completed University of VACCINE 00:00:00 [facility] TDAP (ADACEL) 2016-04-25 Completed [place] of VACCINE 00:00:00 [facility] TDAP (ADACEL) 2016-04-25 Completed University of VACCINE 00:00:00 [facility] TDAP (ADACEL) 2016-04-25 Completed University of VACCINE 00:00:00 [facility] Influenza Virus 2016-04-01 Completed Universit y of Vaccine Quad IM 00:00:00 [place] Med ical Multi-dose 6+ MO Branch Influenza Virus 2016-04-01 Completed Universit y of Vaccine Quad IM 00:00:00 [place] Med ical Multi-dose 6+ MO Branch Influenza Virus 2016-04-01 Completed Universit y of Vaccine Quad IM 00:00:00 [place] Med ical Multi-dose 6+ MO Branch Influenza Virus 2016-04-01 Completed Universit y of Vaccine Quad IM 00:00:00 [place] Med ical Multi-dose 6+ MO Branch Pneumococcal 2015-08-24 Completed University o f Polysaccharide, 00:00:00 [place] Med ical PPSV23 (PNEUMOVAX) Branch Influenza Virus 2015-08-24 Completed Universit y of Vaccine Quad IM 3+ 00:00:00 [facility] Pneumococcal 2015-08-24 Completed University o f Polysaccharide, 00:00:00 [place] Med ical PPSV23 (PNEUMOVAX) Branch Influenza Virus 2015-08-24 Completed Universit y of Vaccine Quad IM 3+ 00:00:00 [facility] Pneumococcal 2015-08-24 Completed University o f Polysaccharide, 00:00:00 [facility] ical PPSV23 (PNEUMOVAX) Branch Influenza Virus 2015-08-24 Completed Universit y of Vaccine Quad IM 3+ 00:00:00 [facility] Pneumococcal 2015-08-24 Completed University o f Polysaccharide, 00:00:00 [facility] ical PPSV23 (PNEUMOVAX) Branch Influenza Virus 2015-08-24 Completed Universit y of Vaccine Quad IM 3+ 00:00:00 [facility] Vital Signs Vital Name Observation Time Observation Value Comments Source Systolic blood 2019-01-01 13:32:00 142 mm[Hg] Univer sity of pressure [facility] Diastolic blood 2019-01-01 13:32:00 100 mm[Hg] Unive rsity of pressure [facility] Heart rate 2019-01-01 13:32:00 86 /min Universi ty [facility] Body temperature 2019-01-01 13:32:00 36.44 Eryn Univ ersity of [facility] Body height 2019-01-01 13:32:00 165.1 cm [facility] Body weight 2019-01-01 13:32:00 81.647 kg [facility] BMI 2019-01-01 13:32:00 29.95 kg/m2 [facility] Procedures Procedure Date / Time Performing Clinician Source Performed AUTHORIZATION FOR 2019-02-18 05:01:00 Doctor Unassigned, No [facility] RELEASE OF [facility] COMP. METABOLIC PANEL 2019-01-01 13:52:00 [id number] LIPID PANEL 2019-01-01 13:52:00 Al Zimmer [facility] ([id number])(TOTAL [facility] Branch CHOLESTEROL, TRIGLYCERIDES, HDL) CBC WITH DIFFERENTIAL 2019-01-01 13:52:00 Al Zimmer [facility] ASSIGNMENT OF BENEFITS 2019-01-01 13:15:46 Doctor Unassigned, No [facility] Encounters Start End Encounter Admission Attending Care Care Encounter Source Date/Time Date/Time Type Type Clinicians Facility Department ID 2019-02-18 2019-02-18 Orders Doctor PRUDENCIO [id number] Univers 00:00:00 00:00:00 Only Unassigned, TAYLOR [id number] ity of [place] [facility] [id number] Juno as [phone] [place] [id number] Branch 2019-01-24 2019-01-24 Refill Goran OKYULI [id number] Univers 00:00:00 00:00:00 [facility] [id number] ity of [place] [id number] Juno as Professio [phone] Nm dical nal [address] [place] [address] 2019-01-01 2019-01-01 Office JACKIE Zimmer [id number] Univers 08:17:32 09:01:49 Visit [facility] [id number] ity of [place] [id number] Juno as Professio [phone] Nm dical nal [address] [place] [address] 2019-01-01 2019-01-01 Orders Doctor PRUDENCIO [id number] Univers 00:00:00 00:00:00 Only Unassigned, TAYLOR [id number] ity of [place] [facility] [id number] Juno as [phone] [facility] jason 009 Branch Results Test Description Test Time Test Comments Results Result Comments Source COMP. METABOLIC PANEL (16155) 2019-01-01 16:13:00 Test Item Value Reference Range Interpretation Comme nts NA (test code = 5453577331) 142 mmol/L 135-145 K (test code = 5748076370) 5.6 mmol/L 3.5-5 H CL (test code = 8924151996) 106 mmol/L 98-108 CO2 TOTAL (test code = 8317341348) 28 mmol/L 23-31 AGAP (test code = 0344514367) 2-16 BUN (test code = 1494332750) 6 mg/dL 7-23 L GLUCOSE (test code = 7899341865) 105 mg/dL 70-110 CREATININE (test code = 0.79 mg/dL 0.5-1.04 5829145724) TOTAL BILI (test code = 1.3 mg/dL 0.1-1.1 H 5584250728) CALCIUM (test code = 5994787341) 9.1 mg/dL 8.6-10.6 T PROTEIN (test code = 5956768014) 8.7 g/dL 6.3-8.2 H ALBUMIN (test code = 1341698362) 4.0 g/dL 3.5-5 ALK PHOS (test code = 6054564752) 72 U/L 34-122 ALT(SGPT) (test code = 0503442224) 58 U/L 9-51 H AST(SGOT) (test code = 9682636922) 87 U/L 13-40 H eGFR Calculation (Non- mL/min/1.73m2 [facility]) (test code = 9353883169) eGFR Calculation ( mL/min/1.73m2 [facility]) (test code = 9836342975) ROMY (test code = ROMY) Association of Glomerular Filtration Rate (GFR) and Staging of Kidney Disease*+ + + +| GFR (mL/min/1.73 m2)?| With Kidney Damage?|?Without Kidney Damage+ +-- + +|?>90?|?Stage one?|? Normal?+ +- + +|?60-89?|?Stage two?|? Decreased GFR? + +-------- + ------+|?30-59?|?Stage three?|? Stage three? + +-------- + ------+|?15-29?|?Stage four? |? Stage four?+ +--- + +|?<15 (or dialysis)?|?Stage five? |? Stage five?+ +--- + +*Each stage assumes the associated GFR level has been in effect for at least three months.?Stages 1 to 5, with or without kidney disease, indicate chronic kidney disease.Notes: Determination of stages one and two (with eGFR >59mL/min/1.73 m2) requires estimation of kidney damage for at least three months as defined by structural or functional abnormalities of the kidney, manifested by either:Pathological abnormalities or Markers of kidney damage (including abnormalities in the composition of the blood or urine or abnormalities in imaging tests). Lab Interpretation (test code = Abnormal 53816-0) [id number]TOTAL CHOLESTEROL, TRIGLYCERIDES, HDL)2019-01-01 16:13:00 Test Item Value Reference Range Interpretation Comments CHOL (test code = 160 mg/dL 120-200 4156924500) HDL (test code = 61 mg/dL >50 0697085385) HDLC RATIO (test code = See_Comment [Au tomated message] 7415402908) The system [employer] generated this result transmit amelie reference range : <=4.5. The refe rence range was not u sed to interpret th is result as normal/abnormal . TRIG (test code = 73 mg/dL 30-170 4466169116) LDL CHOL (test code = 84 mg/dL See_Comment [Auto mated message] 23216-2) The system [employer] generated this result transmit amelie reference range : <=160. The refe rence range was not u sed to interpret th is result as normal/abnormal . VLDL (test code = 15 mg/dL 5-60 4978408834) Lab Interpretation (test Normal code = 99171-6) [facility]"
[2021-08-08 12:46] LABS: Hematocrit 42.6 % (36.0-45.0); Lymphocytes % 26.9 % (15.3-44.8); MPV 7.9 fL (7.6-11.3); RBC Red Blood Cell Count 4.58 M/uL (3.86-4.86)
--- NOTE | 2021-08-08 12:53 | RAD REPORT ---
EXAM DESCRIPTION: RAD - Foot Right 3 View - 08/08/2021 12:32 pm CLINICAL HISTORY: Pain;Swelling COMPARISON: No comparisons FINDINGS: No acute fracture. No malalignment. Midfoot and forefoot degenerative changes. Small densi ty in the dorsal soft tissues adjacent to the fifth toe metatarsal head. IMPRESSION: No right foot fracture. Small radiopaque density adjacent to the fifth metatarsal head. It is unclear if this represents a small radiopaque foreign body or dystrophic calcification.
[2021-08-08] MEDS ORDERED: ONDANSETRON 4 MG/2 ML VIAL ONE (12:56)
[2021-08-08] MEDS ORDERED: MORPHINE 4 MG/ML SYR ONE (12:56)
[2021-08-08 13:14] LABS: Albumin 2.8 g/dL (3.4-5.0); Bilirubin Total 1.3 mg/dL (0.2-1.0); Potassium 3.9 mmol/L (3.5-5.1)
--- NOTE | 2021-08-08 13:24 | RAD REPORT ---
EXAM DESCRIPTION: US - Extremity Venous Uni Ltd - 08/08/2021 1:03 pm CLINICAL HISTORY: Pain;Swelling Leg swelling and edema. COMPARISON: Extremity Venous Uni Ltd dated 04/18/2019 FINDINGS: Right lower extremity venous system was interrogated with Doppler technique. Normal flow, compressibility and augmentation was noted. There is no DVT present. IMPRESSION: No evidence of right lower extremity deep venous thrombosis.
--- NOTE | 2021-08-08 13:30 | RAD REPORT ---
EXAM DESCRIPTION: RAD - Ankle Right 3 View - 08/08/2021 12:33 pm CLINICAL HISTORY: Pain;Swelling COMPARISON: Ankle Right 3 View dated 11/28/2017; Foot Right 3 View dated 08/08/2021 FINDINGS: Fracture is seen involving the distal aspect of the lateral malleolus with moderate adjace nt soft tissue swelling. This is likely an acute fracture. Small bony fragment distal to the medial m alleolus could be an acute coronal injury.
--- NOTE | 2021-08-08 15:33 | EDPHYS ---
Physician Documentation [facility] Name: Maisha Leo Age: 61 yrs Sex: Female : 1960 Arrival Date: 08/08/2021 Time: 11:24 Bed 17 Private MD: ED Physician Raoul Saldivar HPI: 08/08 11:39 This 61 yrs old Female presents to ER via EMS with complaints of Right ankle pain and pm1 swelling. 11:39 The patient presents with pain, that is acute, swelling. The complaints affect the pm1 right ankle. Onset: The symptoms/episode began/occurred 2 day(s) ago. Context: The problem was sustained from a fall injury. Patient reports that she jurried along by a friend and then she fell resulting in right ankle pain and swelling two days ago, The mechanism of injury is unknown. Associated signs and symptoms: Pertinent positives: swelling, Pertinent negatives: calf tenderness, fever. Modifying factors: The symptoms are alleviated by elevation of extremity, the symptoms are aggravated by weight bearing, movement. Severity of symptoms: in the emergency department the symptoms are actually worse. The patient has not experienced similar symptoms in the past. The patient has not recently seen a physician. Historical: - Allergies: 11:45 PENICILLINS; ww - Home Meds: 11:45 amlodipine 5 mg chew 1 tab once daily [Active]; gabapentin 400 mg Oral cap 1 cap 3 ww times per day [Active]; Keppra 500 mg Oral chew 2 times per day [Active]; lisinopril 40 mg Oral tab 1 tab once daily [Active]; quetiapine 25 mg oral tab 1 tab nightly [Active]; lamotrigine 25 mg oral tr24 [Active]; trazodone 100 mg Oral tab 1 tab once daily [Active]; - PMHx: 11:45 ADD/ADHD; Bipolar disorder; Cirrhosis; COPD; CVA; Left sided weakness; Fibromyalgia; ww Hypertension; Hypothyroidism; Myocardial infarction; Seizures; Cerebrovascular accident; - PSHx: 11:45 right big toe; ww - Immunization history:: Adult Immunizations up to date. - Social history:: Smoking status: Patient reports the use of cigarette tobacco products, smokes one-half pack cigarettes per day, Patient uses alcohol, on a daily basis. ROS: 11:39 Constitutional: Negative for fever, chills, and weight loss, Cardiovascular: Negative pm1 for chest pain, palpitations, and edema, Respiratory: Negative for shortness of breath, cough, wheezing, and pleuritic chest pain. 11:39 Neuro: Negative for headache, weakness, numbness, tingling, and seizure. 11:39 MS/extremity: Positive for pain, swelling, of the right ankle and right foot, swelling to distal aspect of left tibia and fibula. 11:39 Skin: Positive for abrasion(s), of the lateral aspect of right calf. 11:39 All other systems are negative. Exam: 11:39 Constitutional: This is a well developed, well nourished patient who is awake, alert, pm1 and in no acute distress. Head/Face: Normocephalic, atraumatic. 11:39 Eyes: Exam is negative for acute changes, Periorbital structures: appear normal, Extraocular movements: no acute changes, Corneas: no acute changes, Sclera: no acute changes, icterus, is not appreciated. 11:39 ENT: Exam is negative for acute changes, Mouth: no acute changes, Lips: normal, moist, Oral mucosa: normal, pink and intact, moist. 11:39 Cardiovascular: Exam negative for acute changes, Rate: normal, Rhythm: regular, Pulses: no pulse deficits are appreciated. 11:39 Respiratory: Exam negative for acute changes, respiratory distress, shortness of breath. 11:39 Skin: Appearance: normal except for affected area, injury, abrasion(s), small abrasion noted, of the lateral aspect of right calf, ecchymosis present to heel of right foot. 11:39 Neuro: Exam negative for acute changes, Orientation: is normal, Mentation: is normal, Motor: is normal, moves all fours. Vital Signs: 11:43 BP 135 / 103; Pulse 82; Resp 15; Temp 97.7; Pulse Ox 100% ; Weight 74.84 kg; Height 5 ww ft. 5 in. (165.10 cm); Pain 10/10; 12:58 BP 148 / 91; Pulse 84; Resp 15; Pulse Ox 96% on R/A; ww 13:27 BP 132 / 90; Pulse 80; Resp 18; Pulse Ox 94% on R/A; ww 15:05 BP 122 / 85; Pulse 88; Resp 15; Pulse Ox 94% ; jl7 11:43 Body Mass Index 27.46 (74.84 kg, 165.10 cm) ww MDM: 11:36 Patient medically screened. pm1 15:29 Data reviewed: vital signs. Data interpreted: Pulse oximetry: on room air is 100 %. pm1 Interpretation: normal. Counseling: I had a detailed discussion with the patient and/or guardian regarding: the historical points, exam findings, and any diagnostic results supporting the discharge/admit diagnosis, lab results, radiology results, the need for outpatient follow up, for definitive care, a orthopedic surgeon, to return to the emergency department if symptoms worsen or persist or if there are any questions or concerns that arise at home. 15:35 Refusal of service: The patient/guardian displays adequate decision making capability pm1 and despite a detailed discussion of alternatives, benefits, risks, and consequences refuses: Patient and her family refused to wait for me to redo the splint. When I checked the splint applied by the nurse I did not like the positioning of the foot, I would like a 90 degree angle, and the edges were not folded down to prevent possible skin irritation. The patient's family/ride wanted to take the patient home immediately because she is "on the clock at work." Additionally she left without taking the discharge papers or prescription for pain medications. Patient reported that she will use a walker at home. 08/08 11:38 Order name: CBC with Diff pm1 08/08 11:38 Order name: Procalcitonin pm1 08/08 11:38 Order name: CMP; Complete Time: 13:37 pm1 08/08 11:38 Order name: ETOH Level; Complete Time: 13:37 pm1 08/08 11:39 Order name: CBC with Automated Diff; Complete Time: 12:56 EDMS 08/08 11:39 Order name: Procalcitonin; Complete Time: 13:37 EDMS 08/08 11:38 Order name: Foot Right 3 View XRAY; Complete Time: 12:56 pm1 08/08 11:38 Order name: Ankle Right 3 View XRAY; Complete Time: 13:37 pm1 08/08 11:38 Order name: IV Saline Lock; Complete Time: 13:06 pm1 08/08 11:40 Order name: Extremity Venous Uni Ltd US; Complete Time: 13:37 pm1 08/08 14:22 Order name: Splint - Ankle: Orthoglass: Nicrup pm1 08/08 14:23 Order name: Crutches pm1 Administered Medications: 13:10 Drug: morphine 4 mg Route: IVP; Site: left antecubital; ww 13:13 Drug: Zofran (Ondansetron) 4 mg Route: IVP; Site: left antecubital; ww Disposition Summary: 08/08/21 15:32 Discharge Ordered Location: Home pm1 Problem: new pm1 Symptoms: have improved pm1 Condition: Stable pm1 Diagnosis - Fracture of lateral malleolus - Right pm1 - Fracture of medial malleolus - Right - acute coronal injury pm1 Followup: pm1 - With: Emergency Department - When: As needed - Reason: Worsening of condition Followup: pm1 - With: Private Physician - When: 2 - 3 days - Reason: Recheck today's complaints, Continuance of care, Re-evaluation by your physician Discharge Instructions: - Discharge Summary Sheet pm1 - Ankle Fracture pm1 Forms: - Medication Reconciliation Form pm1 - Thank You Letter pm1 - Antibiotic Education pm1 - Prescription Opioid Use pm1 Prescriptions: - Tylenol-Codeine #3 300 mg-30 mg Oral - take 2 tablet by ORAL route every 6 hours As needed; 20 tablet; Refills: 0, pm1 Product Selection Permitted Signatures: Dispatcher [employer] Refugio Vazquez NP CONSTRUCTION PROJECT ASSISTANT pm1 iNkki Mart, RN RN ww
--- NOTE | 2021-08-08 15:33 | ER ---
Nurse's Notes [facility] Name: Maisha Leo Age: 61 yrs Sex: Female : 1960 Arrival Date: 08/08/2021 Time: 11:24 Bed 17 Private MD: Diagnosis: Fracture of lateral malleolus-Right;Fracture of medial malleolus-Right - acute coronal injury Presentation: 08/08 11:43 Chief complaint: Patient states: Right lower calf pain, swelling and discoloration that ww started 2 days ago. Patient states that she has frequent falls and fell 2 days ago. Coronavirus screen: Vaccine status: Patient reports receiving the 2nd dose of the covid vaccine. Client denies travel out of the [place] in the last 14 days. Ebola Screen: Patient negative for fever greater than or equal to 101.5 degrees Fahrenheit, and additional compatible Ebola Virus Disease symptoms Patient denies exposure to infectious person. Patient denies travel to an Ebola-affected area in the 21 days before illness onset. Initial Sepsis Screen: Does the patient meet any 2 criteria? No. Patient's initial sepsis screen is negative. Does the patient have a suspected source of infection? No. Patient's initial sepsis screen is negative. Risk Assessment: Do you want to hurt yourself or someone else? Patient reports no desire to harm self or others. Onset of symptoms is unknown. 11:43 Method Of Arrival: EMS: [facility] 11:43 Acuity: ARTURO 3 ww Triage Assessment: 11:45 General: Appears uncomfortable, unkempt, Behavior is cooperative, anxious. Pain: ww Complains of pain in lateral aspect of right calf, right calf, medial aspect of right calf and right catherine. EENT: No signs and/or symptoms were reported regarding the EENT system. Neuro: Level of Consciousness is awake, alert, obeys commands, Oriented to person, place, time, situation, Speech is normal. Cardiovascular: Capillary refill is sluggish Patient's skin is warm and dry. Rhythm is regular Chest pain is denied. Respiratory: Airway is patent Respiratory effort is even, unlabored, Respiratory pattern is regular, symmetrical. GI: No signs and/or symptoms were reported involving the gastrointestinal system. : Reports incontinence. Derm: Skin has lesions on right calf abrasion, multiple scratches on arms and stomach. Bruises all over abdomen-patient states they are probably from the falls. Historical: - Allergies: 11:45 PENICILLINS; ww - Home Meds: :45 amlodipine 5 mg chew 1 tab once daily [Active]; gabapentin 400 mg Oral cap 1 cap 3 ww times per day [Active]; Keppra 500 mg Oral chew 2 times per day [Active]; lisinopril 40 mg Oral tab 1 tab once daily [Active]; quetiapine 25 mg oral tab 1 tab nightly [Active]; lamotrigine 25 mg oral tr24 [Active]; trazodone 100 mg Oral tab 1 tab once daily [Active]; - PMHx: 11:45 ADD/ADHD; Bipolar disorder; Cirrhosis; COPD; CVA; Left sided weakness; Fibromyalgia; ww Hypertension; Hypothyroidism; Myocardial infarction; Seizures; Cerebrovascular accident; - PSHx: :45 right big toe; ww - Immunization history:: Adult Immunizations up to date. - Social history:: Smoking status: Patient reports the use of cigarette tobacco products, smokes one-half pack cigarettes per day, Patient uses alcohol, on a daily basis. Screenin:49 Abuse screen: Denies threats or abuse. Denies injuries from another. Nutritional ww screening: No deficits noted. Tuberculosis screening: No symptoms or risk factors identified. Fall Risk Fall in past 12 months (25 points). Secondary diagnosis (15 points) seizures, TIA, impaired mobility, CVA, No IV (0 pts). Ambulatory Aid- None/Bed Rest/Nurse Assist (0 pts). Gait- Normal/Bed Rest/Wheelchair (0 pts) Mental Status- Oriented to own ability (0 pts). Total Anderson Fall Scale indicates Low Risk Score (25-44 pts). Fall prevention measures have been instituted. Side Rails Up X 2 Placed close to Nursing Station 1:1 attendant Assigned to Pt. Frequent Obs/Assesments occuring. Assessment: 11:49 Reassessment: Patient states symptoms have not improved. see triage assessment. ww 12:30 Reassessment: Patient appears in no apparent distress at this time. No changes from ww previously documented assessment. Patient and/or family updated on plan of care and expected duration. Pain level reassessed. Patient is alert, oriented x 3, equal unlabored respirations, skin warm/dry/pink. Patient states symptoms have improved. 13:27 Reassessment: Patient appears in no apparent distress at this time. No changes from ww previously documented assessment. Patient and/or family updated on plan of care and expected duration. Pain level reassessed. Patient is alert, oriented x 3, equal unlabored respirations, skin warm/dry/pink. 14:30 Reassessment: Patient appears in no apparent distress at this time. No changes from ww previously documented assessment. Patient and/or family updated on plan of care and expected duration. Pain level reassessed. Patient is alert, oriented x 3, equal unlabored respirations, skin warm/dry/pink. 15:41 Reassessment: splint placed on right ankle by Gloria Herring RN, patient able to move toes, ww skin warm and dry. Patient refused to have splint corrected by MATERIAL HANDLING SUPERVISOR due to her ride here and she needs to leave. Patient left without paper work and prescription. . Vital Signs: 11:43 BP 135 / 103; Pulse 82; Resp 15; Temp 97.7; Pulse Ox 100% ; Weight 74.84 kg; Height 5 ww ft. 5 in. (165.10 cm); Pain 10/10; 12:58 BP 148 / 91; Pulse 84; Resp 15; Pulse Ox 96% on R/A; ww 13:27 BP 132 / 90; Pulse 80; Resp 18; Pulse Ox 94% on R/A; ww 15:05 BP 122 / 85; Pulse 88; Resp 15; Pulse Ox 94% ; jl7 11:43 Body Mass Index 27.46 (74.84 kg, 165.10 cm) ED Course: 11:24 Patient arrived in ED. ds1 11:32 Refugio Daly NP is PHCP. pm1 11:32 Raoul Saldivar MD is Attending Physician. pm1 11:43 Nikki Mart, RN is Primary Nurse. ww 11:45 Triage completed. ww 11:45 Arm band placed on right wrist. ww 11:49 Patient has correct armband on for positive identification. Bed in low position. Call ww light in reach. Side rails up X2. manager monitoring on. Pulse ox on. NIBP on. 12:33 Foot Right 3 View XRAY In Process Unspecified. EDMS 12:33 Ankle Right 3 View XRAY In Process Unspecified. EDMS 13:03 Extremity Venous Uni Ltd US In Process Unspecified. EDMS 13:06 Procalcitonin Sent. ww 13:06 CBC with Diff Sent. ww 15:36 Orthoglass splint: stirrup splint applied on right leg. ab2 15:41 No provider procedures requiring assistance completed. intact, bleeding controlled, No ww redness/swelling at site. Pressure dressing applied. Administered Medications: 13:10 Drug: morphine 4 mg Route: IVP; Site: left antecubital; ww 13:13 Drug: Zofran (Ondansetron) 4 mg Route: IVP; Site: left antecubital; ww Outcome: 15:32 Discharge ordered by MD. pm1 15:42 Condition: stable ww 15:42 Prescriptions given X patient left without discharge instruction and papers. 15:43 Patient left the ED. ww Signatures: Dispatcher [employer] EDNY Shanika Kenyon ds1 Refugio Daly, MATERIAL HANDLING SUPERVISOR MATERIAL HANDLING SUPERVISOR pm1 Abdiel Avila RN RN jl7 Nikki Mart RN RN ww Miguel Smith ab2 Corrections: (The following items were deleted from the chart) 17:21 15:41 Reassessment: splint placed on right ankle, patient able to move toes, skin warm ww and dry. Patient refused to complete splint due to her ride here and she needs to leave. Patient left without paper work. . ww
[2021-08-08 16:15] VITALS: TEMP 97.7
[2021-08-08 16:18] VITALS: O2SAT 94
[2021-08-08 16:19] VITALS: BP 122/85
== END 2021-08-08 15:43 | disposition home or self-care (01) ==
LOC: ER 11:23
PROC: 2W3QX1Z Immobilization of Right Lower Leg using Splint (ICD-10-PCS; principal; 2021-08-08)
DX: S82.51XA Displaced fracture of medial malleolus of right tibia, initial encounter for closed fracture (principal); S82.61XA Displaced fracture of lateral malleolus of right fibula, initial encounter for closed fracture; W18.30XA Fall on same level, unspecified, initial encounter; I10 Essential (primary) hypertension; F31.9 Bipolar disorder, unspecified; E03.9 Hypothyroidism, unspecified; Z86.73 Personal history of transient ischemic attack (TIA), and cerebral infarction without residual deficits; Z88.0 Allergy status to penicillin
CPT/HCPCS: 85025; 36415; 80320; 80053; 84145; 73630; 73610; 93971; 96375; 96374; 99284; 29515; J2405

== ENCOUNTER 2022-01-22 16:51 | Emergency (ER) | payer OTHER ==
--- OUTSIDE RECORDS SUMMARY | 2022-01-22 16:55 | XMS REPORT | Continuity of Care Document ---
:1960 Author Organization [facility] t Address Formerly [facility] [address] [place] [id number] Care Team Providers Name Role Phone Doctor Unassigned, [place] Attending Clinician Unavailable Goran MARTIN, Danielful A Attending Clinician Payers Payer Name Policy Type Policy Number Effective Date Expiration Date S ource Problems Condition Condition Condition Status Onset Resolution Last Treating Co mments Source Name Details Category Date Date Treatment Clinician Date Essential Essential Disease Active Uni vers hypertensi hypertensi 7-26 it y of on on 00:00: [address] Obesity Obesity Disease Active 2017 Univers (BMI (BMI 5-25 ity of 30-39.9) 30-39.9) 00:00: [address] Osteomyeli Osteomyeli Disease Active 2017 U nivers tis tis 5-24 ity of 00:00: [address] Positive Positive Disease Active 2015-06 Unive rs serology serology 1-15 ity of for for 00:00: [place] syphilis syphilis 00 Medica l Branch 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 1-15 it y of ve ve 00:00: [place] [facility] Trichomoni Trichomoni Disease Active 2015-06 U nivers asis asis 0-26 ity of 00:00: [place] 00 [facility] Tobacco Tobacco Disease Active 2015-06 Univers use use 0-24 ity of 00:00: [place] 00 [facility] Arthralgia Arthralgia Disease Active 2015-06 U nivers of of 0-24 ity of multiple multiple 00:00: [place] joints joints 00 Medical Branch Seizure Seizure Disease Active 2015-06 Univers disorder disorder 0-24 ity of 00:00: [place] 00 [facility] Accelerate Accelerate Disease Active 2015-06 U [...] [place] Bipolar I Bipolar I Disease Active Uni vers disorder, disorder, 8-31 ity of most most 00:00: [place] recent recent 00 Medical episode episode Branch (or (or current) current) depressed, depressed, severe, severe, without without mention of mention of psychotic psychotic behavior behavior HLD HLD Disease Active Univers (hyperlipi (hyperlipi it y of demia) demia) [facility] [place] [facility] Hepatic Hepatic Disease Active Univers cirrhosis cirrhosis ity of [facility] [place] [facility] Acquired Acquired Disease Active Unive rs hypothyroi hypothyroi it y of dism dism [facility] [place] [facility] Allergies, Adverse Reactions, Alerts Allergy Allergy Status Severity Reaction(s) Onset Inactive Treating Comm ents Source Name Type Date Date Clinician Penicill Propensi Active Rash Univer s ins ty to 8 ity of adverse 00:00: [place] reaction 00 [facility] Social History Social Habit Start Date Stop Date Quantity Comments Source History of tobacco Cigarette Smoker University of use [facility] [place] [facility] Alcohol intake [place] of [facility] [place] [facility] Sex Assigned At Universit y of [facility] [place] [facility] Cigarettes smoked 2019-01-01 2019-01-01 Univers ity of current (pack per 00:00:00 00:00:00 ) - Reported Branch Cigarette 2019-01-01 2019-01-01 University of pack-years 00:00:00 00:00:00 [facility] [place] [facility] Tobacco Comment 2014-12-26 2014-12-26 smokes 6 cig/day Uni versity of 00:00:00 00:00:00 [facility] [place] [facility] Smoking Status Start Date Stop Date Source Current every day smoker 2019-01-01 00:00:00 Uni versity of [facility] [place] [facility] Medications Ordered Filled Start Stop Current Ordering Indication Dosage Frequency Signature Comments Components Source Medication Medication Date Date Medication? Clinician (SIG) Name Name amLODIPine Yes [id number] 5mg Take 1 U nivers 5 mg tablet 7-26 tablet by ity of 00:00: mouth 00 daily. Medical Branch cyclobenzap Yes [id number] 10mg Take 1 Univers rine 10 mg 7-26 tablet by ity of tablet 00:00: mouth (three) Medical times Branch daily as needed for Muscle Spasms. gabapentin Yes [id number] 400mg Take 1 Univers 400 mg 7-26 capsule by ity of capsule 00:00: mouth (three) Medical times Branch daily. amLODIPine Yes [id number] 5mg Take 1 U nivers 5 mg tablet 7-26 tablet by ity of 00:00: mouth 00 daily. Medical Branch cyclobenzap Yes [id number] 10mg Take 1 Univers rine 10 mg 7-26 tablet by ity of tablet 00:00: mouth (three) Medical times Branch daily as needed for Muscle Spasms. gabapentin Yes [id number] 400mg Take 1 Univers 400 mg 7-26 capsule by ity of capsule 00:00: mouth (three) Medical times Branch daily. amLODIPine Yes [id number] 5mg Take 1 U nivers 5 mg tablet 7-26 tablet by ity of 00:00: mouth 00 daily. Medical Branch cyclobenzap Yes [id number] 10mg Take 1 Univers rine 10 mg 7-26 tablet by ity of tablet 00:00: mouth (three) Medical times Branch daily as needed for Muscle Spasms. gabapentin Yes [id number] 400mg Take 1 Univers 400 mg 7-26 [...] 5-07 TABLET BY ity of 00:00: MOUTH 00 EVERY DAY Medical Branch LISINOPRIL 2018-0 [...] BY ity of mg tablet 00:00: MOUTH [place] 00 TWICE A Medical DAY Branch METOPROLOL 2018-0 2019- No TAKE 1 Univ ers TARTRATE 50 3-12 -26 TABLET BY it y of mg tablet 00:00: 00:00 MOUTH [place] 00 :00 TWICE A Medical DAY Branch GABAPENTIN 2016- Yes TAKE 3 Unive rs 300 mg 0-27 CAPSULES ity of capsule 00:00: BY MOUTH [place] 00 THREE Medical TIMES Branch DAILY. GABAPENTIN 2016-06 2019- No TAKE 3 Univ ers 300 mg 0-27 07-26 CAPSULES ity of capsule 00:00: 00:00 BY MOUTH [place] 00 :00 THREE Medical TIMES Branch DAILY. [place] 2017-0 Yes [id number] Use as Unive rs (ULTRA-LIGH 6-27 directed ity of T ROLLATOR) 00:00: [place] [address] Medical Branch Walker 2017-0 Yes [id number] Use as Unive rs (ULTRA-LIGH 6-27 directed ity of T ROLLATOR) 00:00: [place] [address] Medical Branch Walker 2017-0 Yes [id number] Use as Unive rs (ULTRA-LIGH 6-27 directed ity of T ROLLATOR) 00:00: [place] [address] Medical Branch Walker 2017-0 Yes [id number] Use as Unive rs (ULTRA-LIGH 6-27 directed ity of T ROLLATOR) 00:00: [place] [address] Medical Branch metroNIDAZO 2017-0 Yes 500mg Take 1 Uni vers LE 500 mg 6-12 tablet by ity o f tablet 00:00: mouth [place] (two) Medical times Branch daily. metroNIDAZO 2017-0 Yes 500mg Take 1 Uni vers LE 500 mg 6-12 tablet by ity o f tablet 00:00: mouth [place] (two) Medical times Branch daily. metroNIDAZO 2017-0 Yes 500mg Take 1 Uni vers LE 500 mg 6-12 tablet by ity o f tablet 00:00: mouth [place] (two) Medical times Branch daily. metroNIDAZO 2017-0 Yes 500mg Take 1 Uni vers LE 500 mg 6-12 tablet by ity o f tablet 00:00: mouth [place] (two) Medical times Branch daily. metroNIDAZO 2017-0 Yes 500mg Take 1 Uni vers LE 500 mg 6-12 tablet by ity o f tablet 00:00: mouth [place] (two) Medical times Branch daily. metroNIDAZO 2017-0 Yes 500mg Take 1 Uni vers LE 500 mg 6-12 tablet by ity o f tablet 00:00: mouth 2 (two) Medical times Branch daily. metroNIDAZO 2017-0 [...] by mouth ity of tablet 20:00: daily. [address] aspirin 81 Yes 81mg Take 81 mg U nivers mg chewable 6-09 by mouth ity of tablet 20:00: daily. [address] aspirin 81 Yes 81mg Take 81 mg U nivers mg chewable 6-09 by mouth ity of tablet 20:00: daily. [address] aspirin 81 Yes 81mg Take 81 mg U nivers mg chewable 6-09 by mouth ity of tablet 20:00: daily. [address] Branch KCL 10 mEq Yes [id number] 10meq Take 1 Univers tablet 6-09 tablet by ity of 00:00: mouth [place] 00 daily. Medical Branch KCL 10 mEq Yes [id number] 10meq Take 1 Univers tablet 6-09 tablet by ity of 00:00: mouth [place] 00 daily. Medical Branch KCL 10 mEq Yes [id number] 10meq Take 1 Univers tablet 6-09 tablet by ity of 00:00: mouth [place] 00 daily. Medical Branch KCL 10 mEq Yes [id number] 10meq Take 1 Univers tablet 6-09 tablet by ity of 00:00: mouth [place] 00 daily. Medical Branch baclofen 10 Yes Univer s mg tablet 11-12 ity of 00:00: [place] 00 Medical Branch baclofen 10 2019- No Unive rs mg tablet 11-12 ity of 00:00: 00:00 [place] 00 :00 Medical Branch mupirocin 2 Yes Apply to Un ac % ointment 11-01 area(s) 3 ity of 00:00: (three) [place] 00 times Medical daily. Branch mupirocin 2 2016-0 Yes Apply to Un ac % ointment 5-26 area(s) 3 ity of 00:00: (three) [place] 00 times Medical daily. Branch mupirocin 2 2016-0 Yes Apply to Un ac % ointment 5-26 area(s) 3 ity of 00:00: (three) [place] 00 times Medical daily. Branch mupirocin 2 2016-0 Yes Apply to Un ac % ointment 5-26 area(s) 3 ity of 00:00: (three) [place] 00 times Medical daily. Branch acetaminoph 2015-06 Yes [id number] 1{tbl} Take 1 Univers en-codeine 1-17 07 tablet by ity of (TYLENOL 00:00: mouth [place] #3) 300-30 00 every 6 Medica l mg tablet (six) Branch hours as needed for Pain (scale 7-10) or Pain unrelieved by non-narcot ic analgesics . acetaminoph 2015-06 2019- No [id number] 1{tbl} Take 1 Univers en-codeine 1-17 07-26 [...] Immunizations Ordered Filled Immunization Date Status Comments [facility] e Immunization Name Name TDAP (ADACEL) 2016-04-25 Completed echoecho of VACCINE 00:00:00 [facility] [place] [facility] TDAP (ADACEL) 2016-04-25 Completed echoecho of VACCINE 00:00:00 [facility] [place] [facility] TDAP (ADACEL) 2016-04-25 Completed University of VACCINE 00:00:00 [facility] [place] [facility] TDAP (ADACEL) 2016-04-25 Completed University of VACCINE 00:00:00 [facility] [place] [facility] Influenza Virus 2016-04-01 Completed Universit y of Vaccine Quad IM 00:00:00 [place] Med ical Multi-dose 6+ MO Branch Influenza Virus 2016-04-01 Completed Universit y of Vaccine Quad IM 00:00:00 [place] Med ical Multi-dose 6+ MO Branch Influenza Virus 2016-04-01 Completed Universit y of Vaccine Quad IM 00:00:00 [place] Med ical Multi-dose 6+ MO Branch Influenza Virus 2016-04-01 Completed Universit y of Vaccine Quad IM 00:00:00 [place] Med ical Multi-dose 6+ MO Branch Pneumococcal 2015-08-24 Completed University o f Polysaccharide, 00:00:00 [place] Med ical PPSV23 (PNEUMOVAX) Branch Influenza Virus 2015-08-24 Completed Universit y of Vaccine Quad IM 3+ 00:00:00 [facility] Pneumococcal 2015-08-24 Completed University o f Polysaccharide, 00:00:00 [place] Med ical PPSV23 (PNEUMOVAX) Branch Influenza Virus 2015-08-24 Completed Universit y of Vaccine Quad IM 3+ 00:00:00 [facility] Pneumococcal 2015-08-24 Completed University o f Polysaccharide, 00:00:00 [place] Med ical PPSV23 (PNEUMOVAX) Branch Influenza Virus 2015-08-24 Completed Universit y of Vaccine Quad IM 3+ 00:00:00 [facility] Pneumococcal 2015-08-24 Completed University o f Polysaccharide, 00:00:00 [facility] ical PPSV23 (PNEUMOVAX) Branch Influenza Virus 2015-08-24 Completed Universit y of Vaccine Quad IM 3+ 00:00:00 [facility] Vital Signs Vital Name Observation Time Observation Value Comments Source Systolic blood 2019-01-01 13:32:00 142 mm[Hg] Univer sity of pressure [facility] [place] [facility] Diastolic blood 2019-01-01 13:32:00 100 mm[Hg] Unive rsity of pressure [facility] [place] [facility] Heart rate 2019-01-01 13:32:00 86 /min Universi ty [facility] Body temperature 2019-01-01 13:32:00 36.44 [facility] Body height 2019-01-01 13:32:00 165.1 cm [facility] Body weight 2019-01-01 13:32:00 81.647 kg [facility] BMI 2019-01-01 13:32:00 29.95 kg/m2 [facility] Procedures Procedure Date / Time Performing Clinician Source Performed AUTHORIZATION FOR 2019-02-18 05:01:00 Doctor Unassigned, No [facility] RELEASE OF [facility] COMP. METABOLIC PANEL 2019-01-01 13:52:00 [id number] LIPID PANEL 2019-01-01 13:52:00 Al Zimmer [facility] ([id number])(TOTAL [facility] CHOLESTEROL, TRIGLYCERIDES, HDL) CBC WITH DIFFERENTIAL 2019-01-01 13:52:00 Al Zimmer [facility] ASSIGNMENT OF BENEFITS 2019-01-01 13:15:46 Doctor Unassigned, No [facility] Encounters Start End Encounter Admission Attending Care Care Encounter Source Date/Time Date/Time Type Type Clinicians Facility Department ID 2019-02-18 2019-02-18 Orders Doctor PRUDENCIO [id number] Univers 00:00:00 00:00:00 Only Unassigned, TAYLOR [id number] ity of [place] [facility] [id number] [place] as [phone] [address] 2019-01-24 2019-01-24 Refill JACKIE Zimmer [id number] Univers 00:00:00 00:00:00 [facility] [id number] ity of [place] [id number] Juno as Professio [phone] [address] Office Building One 2019-01-01 2019-01-01 Office JACKIE Zimmer [id number] Univers 08:17:32 09:01:49 Visit [place] [facility] [id number] ity of [place] [id number] Jun[place] as Professio [phone] Me dical nal 044 Branch Office [address] One 2019-01-01 2019-01-01 Orders Doctor PRUDENCIO [id number] Univers 00:00:00 00:00:00 Only Unassigned, TAYLOR [id number] ity of [place] [facility] [id number] Juno as [phone] [facility] 009 Branch Results Test Description Test Time Test Comments Results Result Comments Source TSH, THIRD GENERATION 2022-01-02 04:53:46 Test Item Value Reference Range Interpretation Comme nts TSH, THIRD GENERATION (test 89.300 UIU/ML 0.400-4.100 H UNLESS OTHERWISE INDICATED, code = 2821) ALL TESTING PER FORMED ATCLINICAL PATH OLOGY LABORATORIES, [facility]. [address] [place] [address] 6524 BARIATRIC NURSE: Ethan HARTMAN [id number] [place] [id number] CBC W/AUTO DIFF WITH [id number] 04:43:48 Test Item Value Reference Range Interpretation Comments WBC (test code = 3.0 K/UL 3.5-11.0 L 1001) RBC (test code = 4.65 M/UL 3.80-5.40 1002) HEMOGLOBIN (test code 14.8 G/DL 11.5-15.5 = 1003) HEMATOCRIT (test code 42.0 % 34.0-45.0 = 1004) MCV (test code = 90.3 fL 80.0-99.0 1005) MCH (test code = 31.8 PG 25.0-33.0 1006) MCHC (test code = 35.2 G/DL 31.0-36.0 1007) RDW (test code = 14.8 % 11.5-15.0 1038) NEUTROPHILS (test 52.3 % code = 1008) LYMPHOCYTES (test 33.4 % code = 1010) MONOCYTES (test code 10.3 % = 1011) EOSINOPHILS (test 2.3 % code = 1012) BASOPHILS (test code 1.7 % = 1013) IMMATURE GRANULOCYTES 0.0 % (test code = 1036) NUCLEATED RBCS (test 0.0 /100 WBC'S See_Comment [Aut omated code = 1065) message] The sy stem which generated this result transmitted reference range : 0.0. The refere nce range was not u sed to interpret th is result as normal/abnormal . PLATELET COUNT (test 160 K/UL 130-400 code = 1015) ABSOLUTE NEUTROPHILS 1.58 K/UL 1.50-7.50 (test code = 1066) ABSOLUTE LYMPHOCYTES 1.01 K/UL 1.00-4.00 (test code = 1067) ABSOLUTE MONOCYTES 0.31 K/UL 0.20-1.00 (test code = 1068) ABSOLUTE EOSINOPHILS 0.07 K/UL 0.00-0.50 (test code = 1040) ABSOLUTE BASOPHILS 0.05 K/UL 0.00-0.20 (test code = 1069) ABS IMMATURE 0.00 K/UL 0.00-0.10 GRANULOCYTES (test code = 1020) ABS NUCLEATED RBCS 0.00 K/UL 0.00-0.11 (test code = 77588) LIPID [id number] 03:18:10 Test Item Value Reference Range Interpretation Comments CHOLESTEROL (test 183 MG/DL <200 code = 2210) TRIGLYCERIDES (test 72 MG/DL <150 code = 2232) HDL CHOLESTEROL (test 60 MG/DL >39 code = 2220) CALC LDL CHOL (test 107 MG/DL <100 H NOTE: C ALCULATED LDL code = 2237) IS BASED ON DENISE-BRADY METHOD WHICHINCLUDES ADJUSTABLE TRIGLYCERIDE:VL DL CHOLESTEROL RAT IO.THIS FACTOR VARIES B Y MEASURED TRIGLY CERIDE AND NON-HDLCHOL ESTEROL CONCENTRATIONS WITH INCREASED CALCU LATED LDL SEENIN HIGH ER TRIGLYCERIDE OR LOWER NON-HDL SPECIME NS. FOR MOREINFORMATION , SEE CLIENT ANNOUNCE MENT AT [email or web address] [email or web address] RATIO LDL/HDL 1.78 RATIO <3.22 (test code = 2238) COMPREHENSIVE METABOLIC [id number] 03:18:10 Test Item Value Reference Range Interpretation Comments GLUCOSE (test code = 98 MG/DL 70-99 2216) BUN (test code = 12 MG/DL -2207) CREATININE (test 0.81 MG/DL 0.60-1.30 code = 2214) eGFR (2020 CKD-EPI) 83 ML/MIN/1.73 >60 (test code = 16396) CALC BUN/CREAT (test 15 RATIO 6-28 code = 2235) SODIUM (test code = 141 MEQ/L 633-134 3902) POTASSIUM (test code 4.3 MEQ/L 3.5-5.4 = 2228) CHLORIDE (test code 103 MEQ/L 95-107 = 2215) CARBON DIOXIDE (test 29 MEQ/L 19-31 code = 2206) CALCIUM (test code = 9.5 MG/DL 8.5-10.5 2208) PROTEIN, TOTAL (test 8.7 G/DL 6.1-8.3 H code = 2229) ALBUMIN (test code = 3.5 G/DL 3.5-5.2 2200) CALC GLOBULIN (test 5.2 G/DL 1.9-3.7 H code = 2240) CALC A/G RATIO (test 0.7 RATIO 1.0-2.6 L code = 2234) BILIRUBIN, TOTAL 1.2 MG/DL See_Comment [Automated message] (test code = 2207) The syste [employer] which generated this result transmit amelie reference range : <=1.2. The refe rence range was not u sed to interpret th is result as normal/abnormal . ALKALINE PHOSPHATASE 101 U/L 40-140 (test code = 2204) AST (test code = 77 U/L 9-40 H 2217) ALT (test code = 47 U/L 5-40 H 2218) COMP. METABOLIC PANEL (92307)2019-01-01 16:13:00 Test Item Value Reference Range Interpretation Comments NA (test code = 142 mmol/L 135-145 7791815655) K (test code = 5.6 mmol/L 3.5-5 H 5986883948) CL (test code = 106 mmol/L 98-108 6368171377) CO2 TOTAL (test code = 28 mmol/L 23-31 3091265491) AGAP (test code = 2-16 6572591952) BUN (test code = 6 mg/dL 7-23 L 8638870793) GLUCOSE (test code = 105 mg/dL 70-110 3900905019) CREATININE (test code = 0.79 mg/dL 0.5-1.04 7048894126) TOTAL BILI (test code = 1.3 mg/dL 0.1-1.1 H 1830652012) CALCIUM (test code = 9.1 mg/dL 8.6-10.6 2039707124) T PROTEIN (test code = 8.7 g/dL 6.3-8.2 H 3471213178) ALBUMIN (test code = 4.0 g/dL 3.5-5 9341573127) ALK PHOS (test code = 72 U/L 34-122 8128803940) ALT(SGPT) (test code = 58 U/L 9-51 H 3945428841) AST(SGOT) (test code = 87 U/L 13-40 H 7649707170) eGFR Calculation mL/min/1.73m2 (Non-) (test code = 0477645952) eGFR Calculation mL/min/1.73m2 () (test code = 3727384320) ROMY (test code = ROMY) Association of Glomerular Filtration Rate (GFR) and Staging of Kidney Disease*+ + + +| GFR (mL/min/1.73 m2)?| With Kidney Damage?|?Without Kidney Damage+ --------+ --------+ +|?>90?|?S tage one?|? Normal?+ ---------+ ---------+ +|?60-89? |?Stage two?|? Decreased GFR? + --+ --+ ------+|?30-59?|?Stage three?|? Stage three? + --+ --+ ------+|?15-29?|?Stage four? |? Stage four?+ -------+ -------+ +|?<15 (or dialysis)?|?Stage five? |? Stage five?+ -------+ -------+ +*Each stage assumes the associated GFR level [...] or abnormalities in imaging tests). Lab Interpretation Abnormal (test code = 24009-6) [facility]108)(TOTAL CHOLESTEROL, TRIGLYCERIDES, HDL)2019-01-01 16:13:00 Test Item Value Reference Range Interpretation Comments CHOL (test code = 160 mg/dL 120-200 6264498516) HDL (test code = 61 mg/dL >50 1093728954) HDLC RATIO (test code = See_Comment [Au tomated message] 0053843790) The system [employer] generated this result transmit amelie reference range : <=4.5. The refe rence range was not u sed to interpret th is result as normal/abnormal . TRIG (test code = 73 mg/dL 30-170 0891280624) LDL CHOL (test code = 84 mg/dL See_Comment [Auto mated message] 12551-8) The system [employer] generated this result transmit amelie reference range : <=160. The refe rence range was not u sed to interpret th is result as normal/abnormal . VLDL (test code = 15 mg/dL 5-60 7534621647) Lab Interpretation (test Normal code = 66393-4) [facility]"
[2022-01-22 17:54] LABS: Hematocrit 38.9 % (36.0-45.0); Lymphocytes % 27.3 % (15.3-44.8); MPV 7.8 fL (7.6-11.3); RBC Red Blood Cell Count 4.18 M/uL (3.86-4.86)
[2022-01-22] MEDS ORDERED: FENTANYL CITR 100 MCG/2 ML ONE (17:58)
[2022-01-22 18:00] LABS: Protime INR 1.1
[2022-01-22 18:13] LABS: Potassium 3.1 mmol/L (3.5-5.1)
[2022-01-22 18:14] LABS: Albumin 2.6 g/dL (3.4-5.0); Bilirubin Direct 0.4 mg/dL (0-0.2); Bilirubin Total 1.1 mg/dL (0.2-1.0); Magnesium 1.9 mg/dL (1.8-2.4); Protein, Total 7.1 g/dL (6.4-8.2); Troponin High Sensitivity 13.2 pg/mL (<58.9)
--- NOTE | 2022-01-22 18:21 | RAD REPORT ---
EXAM DESCRIPTION: RAD - Foot Right 3 View - 01/22/2022 6:04 pm CLINICAL HISTORY: Right foot swelling FINDINGS: A mildly displaced fracture involves the mid aspect of the fifth proximal phalanx. 8 heather meter bony structure extends along lateral aspect of the fifth proximal phalanx. No dislocation seen. Cortical regularity involves the base of the first distal phalanx likely either secondary to previous trauma, surgery or degenerative change
--- NOTE | 2022-01-22 18:22 | RAD REPORT ---
EXAM DESCRIPTION: Niharika Single View01/22/2022 6:04 pm CLINICAL HISTORY: cough COMPARISON: 2019 FINDINGS: The lungs appear clear of acute infiltrate. The heart is normal size IMPRESSION: No acute abnormalities displayed
[2022-01-22] MEDS ORDERED: NA CHLORIDE 0.9% 1,000 ML ONE (19:05)
[2022-01-22 19:23] LABS: Urine Bacteria <20 /HPF (<20); Urine RBC 21-50 /HPF (None Seen)
[2022-01-22 19:24] LABS: Urine Mucus 1+ /HPF (None Seen)
--- NOTE | 2022-01-22 20:05 | RAD REPORT ---
EXAM DESCRIPTION: CT - Chest For Pe Angio - 01/22/2022 7:44 pm CLINICAL HISTORY: cough COMPARISON: 2014 TECHNIQUE: Dynamically enhanced axial 3 mm thick images of the chest were obtained during administra tion of <100> mL Isovue 370 IV contrast. Coronal and oblique reconstruction images were generated and reviewed. Exam utilizes a protocol for optimal evaluation of pulmonary arterial tree. Maximum intensity projections 3D imaging was utilized All CT scans are performed using dose optimization technique as appropriate and may include automated exposure control or mA/KV adjustment according to patient size. FINDINGS: A pulmonary embolus is not seen. A thoracic aortic aneurysm is not noted. A pleural effusion is not seen. A pericardial effusion is not seen. Mucus plug left upper lobe IMPRESSION: Negative for a pulmonary embolism.
--- NOTE | 2022-01-22 20:11 | RAD REPORT ---
EXAM DESCRIPTION: CT - Abdomen Pelvis W Contrast - 01/22/2022 7:44 pm CLINICAL HISTORY: Abdominal pain COMPARISON: 2013 TECHNIQUE: Computed axial tomography of the abdomen pelvis was obtained. 100 cc Isovue-300 was admin istered intravenously. Oral contrast was not requested which limits evaluation of bowel and appendix All CT scans are performed using dose optimization technique as appropriate and may include automated exposure control or mA/KV adjustment according to patient size. FINDINGS: A cirrhotic liver. Homogeneous density. Prominence of portal vein. Abdominal varices. Reca nnulization of the umbilical vein. Splenic granulomata. The pancreas, adrenals and kidneys unremarkable. There is no evidence of diverticulitis. Tubal ligation clips. No adnexal mass. Bladder wall thickening. Moderate anterior subluxation of L5 on S1 with obliteration of disc space. IMPRESSION: Cirrhosis Bladder wall thickening may be secondary to incomplete distention or cystitis
--- NOTE | 2022-01-22 21:22 | ER ---
Nurse's Notes [facility] Name: Maisha Leo Age: 61 yrs Sex: Female : 1960 Arrival Date: 01/22/2022 Time: 17:00 Bed 4 Private MD: Octavio Saxena Diagnosis: Cellulitis of right lower limb-foot;Chronic pain, not elsewhere classified Presentation: 01/22 17:19 Chief complaint: Patient states: pt complaints of pain all over, feeling bad since 5 saturady. 100.2 temp. Coronavirus screen: Vaccine status: Patient reports being unvaccinated. Client denies travel out of the [place] in the last 14 days. Ebola Screen: Patient negative for fever greater than or equal to 101.5 degrees Fahrenheit, and additional compatible Ebola Virus Disease symptoms Patient denies exposure to infectious person. Patient denies travel to an Ebola-affected area in the 21 days before illness onset. Initial Sepsis Screen: Does the patient meet any 2 criteria? Temp <36.0*C (96.8*F)) or > 38.3*C (100.9*F). HR > 90 bpm. Does the patient have a suspected source of infection? No. Patient's initial sepsis screen is negative. Risk Assessment: Do you want to hurt yourself or someone else? Patient reports no desire to harm self or others. Onset of symptoms was January 19, 2022. 17:19 Method Of Arrival: EMS: [facility] 17:19 Acuity: ARTURO 3 jh5 Triage Assessment: 17:24 General: Appears in no apparent distress. uncomfortable, unkempt, Behavior is calm, jh5 cooperative, appropriate for age. Pain: Complains of pain in all over. Historical: - Allergies: 17:24 PENICILLINS; jh5 - PMHx: 17:24 ADD/ADHD; COPD; Seizures; Myocardial infarction; Hypothyroidism; Hypertension; jh5 Fibromyalgia; CVA; Left sided weakness; Cirrhosis; Cerebrovascular accident; Bipolar disorder; - PSHx: 17:24 right big toe; jh5 - Immunization history:: Adult Immunizations up to date. - Social history:: Smoking status: Patient reports the use of cigarette tobacco products, smokes one-half pack cigarettes per day. Screenin:25 Abuse screen: Denies threats or abuse. Denies injuries from another. Nutritional [facility] screening: No deficits noted. Tuberculosis screening: No symptoms or risk factors identified. Fall Risk IV access (20 points). Vital Signs: 17:19 BP 106 / 67; Pulse 116; Resp 18; Temp 100.2; Pulse Ox 91% on R/A; Weight 75 kg; Height [facility] 5 ft. 6 in. (167.64 cm); Pain 10/10; 17:31 Temp 98.5; jh5 17:57 BP 115 / 75; Pulse 103; Resp 18; Pulse Ox 94% on R/A; jh5 17:19 Body Mass Index 26.69 (75.00 kg, 167.64 cm) [facility] ED Course: 17:00 Patient arrived in ED. mr 17:01 Octavio Saxena MD is Private Physician. mr 17:10 Polo Rudolph DO is Attending Physician. ms3 17:11 Mejia Jean PA is PHCP. cp 17:19 Luh Noguera, RN is Primary Nurse. [facility] 17:24 Triage completed. [facility] 17:24 Arm band placed on right wrist. 5 17:25 Patient has correct armband on for positive identification. Bed in low position. Call [facility] light in reach. Side rails up X2. 17:25 No provider procedures requiring assistance completed. Maintain EMS IV. Dressing [facility] intact. Good blood return noted. Site clean \\T\\ dry. Gauge \\T\\ site: 20g RAC. 17:49 Influenza Screen (a \\T\\ B) Sent. 5 17:49 COVID-19 SARS RT PCR (Document "Date of Onset" if Symptomatic) Sent. 5 17:49 Lactate Sent. 5 17:49 Blood Culture Adult (2) Sent. jh5 17:50 Procalcitonin Sent. jh5 18:06 XRAY Chest (1 view) In Process Unspecified. EDMS 18:06 XRAY Foot RIGHT 3 View In Process Unspecified. EDMS 19:46 CT Chest For PE Angio In Process Unspecified. EDMS 19:46 CT Abd/Pelvis - IV Contrast Only In Process Unspecified. EDMS Administered Medications: 17:55 Drug: fentaNYL (PF) 25 mcg Route: IVP; Site: right antecubital; 5 18:56 Drug: NS 0.9% 1000 ml Route: IV; Rate: 100 ml/hr; Site: right antecubital; jh5 22:21 Follow up: Response: No adverse reaction; IV Status: Completed infusion kd3 20:29 Drug: NS 0.9% 1000 ml Route: IV; Rate: 500 ml/hr; Site: right antecubital; jh5 22:20 Follow up: Response: No adverse reaction; IV Status: Completed infusion kd3 22:20 Drug: Doxycycline 100 mg Route: PO; kd3 22:20 Drug: Hydrocodone-Acetaminophen (7.5 mg-325 mg) 1 tabs Route: PO; kd3 Outcome: 21:21 Discharge ordered by MD. ortiz 22:33 Patient left the ED. mw2 Signatures: Dispatcher [employer] EDMS Shannon Richards Corey, PA PA cp [place], MyKena mw2 Polo Rudolph DO DO ms3 Luh Noguera RN RN jh5 Christine Loza RN RN kd3
--- NOTE | 2022-01-22 21:22 | EDPHYS ---
Physician Documentation [facility] Name: Maisha Leo Age: 61 yrs Sex: Female : 1960 Arrival Date: 01/22/2022 Time: 17:00 Bed 4 Private MD: Octavio Saxena ED Physician Polo Rudolph HPI: 01/22 17:30 This 61 yrs old Female presents to ER via EMS with complaints of Pain All Over. cp 17:30 generalized pain, pain all over and not feeling well. Onset: The symptoms/episode cp began/occurred 3 day(s) ago. Severity of symptoms: in the emergency department the symptoms have improved mildly. EMS reports temp of 100.2 upon arrival and low blood pressure. EMS administered 1 liter NS prior to arrival. Historical: - Allergies: 17:24 PENICILLINS; jh5 - PMHx: 17:24 ADD/ADHD; COPD; Seizures; Myocardial infarction; Hypothyroidism; Hypertension; jh5 Fibromyalgia; CVA; Left sided weakness; Cirrhosis; Cerebrovascular accident; Bipolar disorder; - PSHx: 17:24 right big toe; jh5 - Immunization history:: Adult Immunizations up to date. - Social history:: Smoking status: Patient reports the use of cigarette tobacco products, smokes one-half pack cigarettes per day. ROS: 17:35 Constitutional: Positive for body aches, fever. cp 17:35 Eyes: Negative for injury, pain, redness, and discharge. cp 17:35 Neck: Negative for pain with movement, pain at rest, stiffness. 17:35 Cardiovascular: Negative for chest pain, palpitations. 17:35 Respiratory: Positive for cough, Negative for shortness of breath, wheezing. 17:35 Abdomen/GI: Positive for abdominal pain, Negative for vomiting, diarrhea, constipation. 17:35 Neuro: Positive for weakness, Negative for altered mental status, dizziness, headache. 17:35 All other systems are negative. Exam: 17:38 Constitutional: The patient appears in no acute distress, alert, awake, cp non-diaphoretic, non-toxic, well developed, well nourished. 17:38 Head/Face: Normocephalic, atraumatic. cp 17:38 Eyes: Periorbital structures: appear normal, Pupils: equal, round, and reactive to light and accomodation, Extraocular movements: intact throughout, Conjunctiva: normal, no exudate, no injection, Sclera: no appreciated abnormality, Lids and lashes: appear normal, bilaterally. 17:38 ENT: External ear(s): are unremarkable, Nose: is normal, Mouth: Lips: moist, Oral mucosa: moist, Posterior pharynx: Airway: no evidence of obstruction, patent, swelling, is not appreciated, erythema, that is mild, exudate, is not appreciated, Voice: is normal. 17:38 Neck: ROM/movement: is normal, is supple, without pain, no range of motions limitations, no meningismus. 17:38 Chest/axilla: Inspection: normal, Palpation: is normal, no crepitus, no tenderness. 17:38 Cardiovascular: Rate: tachycardic, Rhythm: regular, Edema: is not appreciated, JVD: is not appreciated. 17:38 Respiratory: the patient does not display signs of respiratory distress, Respirations: normal, no use of accessory muscles, no retractions, labored breathing, is not present, Breath sounds: are clear throughout, no decreased breath sounds, no stridor, no wheezing. 17:38 Abdomen/GI: Inspection: abdomen appears normal, Bowel sounds: active, all quadrants, Palpation: soft, in all quadrants, moderate abdominal tenderness, in all quadrants. 17:38 Back: pain, that is moderate, ROM is normal. 17:38 Musculoskeletal/extremity: Extremities: noted in the right foot: mild erythema, mild swelling of toes with multiple superficial wounds noted to great toe and dorsum of foot. 17:38 Neuro: Orientation: to person, place \\T\\ time. Mentation: is normal. 20:40 ECG was reviewed by the Attending Physician. cp Vital Signs: 17:19 BP 106 / 67; Pulse 116; Resp 18; Temp 100.2; Pulse Ox 91% on R/A; Weight 75 kg; Height jh5 5 ft. 6 in. (167.64 cm); Pain 10/10; 17:31 Temp 98.5; jh5 17:57 BP 115 / 75; Pulse 103; Resp 18; Pulse Ox 94% on R/A; jh5 17:19 Body Mass Index 26.69 (75.00 kg, 167.64 cm) 5 MDM: 17:19 Patient medically screened. cp 18:00 Differential Diagnosis sepsis, flu, UTI, pneumonia, dehydration, COVID-19, influenza. cp 21:15 Data reviewed: vital signs, nurses notes, lab test result(s), EKG, radiologic studies, cp CT scan, plain films. 21:15 Test interpretation: by ED physician or midlevel provider: ECG, plain radiologic cp studies. Counseling: I had a detailed discussion with the patient and/or guardian regarding: the historical points, exam findings, and any diagnostic results supporting the discharge/admit diagnosis, lab results, radiology results, to return to the emergency department if symptoms worsen or persist or if there are any questions or concerns that arise at home. Response to treatment: the patient's symptoms have markedly improved after treatment, and as a result, I will discharge patient. 01/22 17:22 Order name: Basic Metabolic Panel; Complete Time: 18:37 cp / 18:37 Interpretation: Normal except: K 3.1; CL 108; GLUC 123; CA 8.0. cp 01/22 17:22 Order name: CBC with Diff; Complete Time: 18:37 cp 01/22 18:37 Interpretation: Normal except: WBC 3.70; RDW 16.5; MN% 12.6; EOSINOPHIL % 5.6. cp 01/22 17:22 Order name: LFT's; Complete Time: 18:37 cp 01/22 18:37 Interpretation: Normal except: AST 61; BILIT 1.1; BILID 0.4; ALB 2.6; GLOB 4.5; A/G 0.6.cp 01/22 17:22 Order name: Magnesium; Complete Time: 18:37 cp 01/22 17:22 Order name: NT PRO-BNP; Complete Time: 18:37 cp / 17:22 Order name: PT-INR; Complete Time: 18:37 cp /16 17:22 Order name: Troponin HS; Complete Time: 18:37 cp /16 17:22 Order name: Urine Microscopic Only; Complete Time: 19:29 cp 08/ 19:29 Interpretation: URBC 21-50; Reviewed. cp 01/22 17:22 Order name: Procalcitonin; Complete Time: 18:37 cp 01/22 17:22 Order name: Lactate; Complete Time: 18:37 cp 01/22 17:22 Order name: Blood Culture Adult (2) cp 01/22 17:22 Order name: COVID-19 SARS RT PCR (Document "Date of Onset" if Symptomatic); Complete cp Time: 19:29 01/22 19:29 Interpretation: Reviewed. 01/22 17:22 Order name: Influenza Screen (a \\T\\ B); Complete Time: 18:37 cp 01/22 19:26 Order name: Urine Culture EDMS 01/22 17:22 Order name: XRAY Chest (1 view); Complete Time: 18:37 cp 01/22 17:22 Order name: EKG; Complete Time: 17:25 cp 01/22 17:22 Order name: Cardiac monitoring; Complete Time: 17:26 cp 01/22 17:22 Order name: EKG - Nurse/Tech; Complete Time: 18:31 cp 01/22 17:22 Order name: IV Saline Lock; Complete Time: 17:26 cp 01/22 17:22 Order name: Labs collected and sent; Complete Time: 17:26 cp 01/22 17:22 Order name: O2 Per Protocol; Complete Time: 17:26 cp 01/22 17:22 Order name: O2 Sat Monitoring; Complete Time: 17:26 cp 01/22 17:22 Order name: XRAY Foot RIGHT 3 View; Complete Time: 18:37 cp 01/22 18:40 Order name: CT Chest For PE Angio; Complete Time: 20:17 cp 01/22 20:18 Interpretation: Report reviewed. 01/22 18:40 Order name: CT Abd/Pelvis - IV Contrast Only; Complete Time: 20:17 cp 01/22 17:22 Order name: Urine Dipstick-Ancillary (obtain specimen); Complete Time: 20:29 01/22 17:22 Order name: Cath; Complete Time: 20:29 cp EC:40 Rate is 90 beats/min. Rhythm is regular. AL interval is normal. QRS interval is normal. cp QT interval is prolonged at 416 msec. Interpreted by me. Reviewed by me. Administered Medications: 17:55 Drug: fentaNYL (PF) 25 mcg Route: IVP; Site: right antecubital; 5 18:56 Drug: NS 0.9% 1000 ml Route: IV; Rate: 100 ml/hr; Site: right antecubital; 5 22:21 Follow up: Response: No adverse reaction; IV Status: Completed infusion kd3 20:29 Drug: NS 0.9% 1000 ml Route: IV; Rate: 500 ml/hr; Site: right antecubital; jh5 22:20 Follow up: Response: No adverse reaction; IV Status: Completed infusion kd3 22:20 Drug: Doxycycline 100 mg Route: PO; kd3 22:20 Drug: Hydrocodone-Acetaminophen (7.5 mg-325 mg) 1 tabs Route: PO; kd3 Disposition: 21:17 Co-signature as Attending Physician, Polo Rudolph DO I was immediately available on-site ms3 in the Emergency Department for consultation in the care of the patient.. Disposition Summary: 01/22/22 21:21 Discharge Ordered Location: Home cp Problem: new cp Symptoms: have improved cp Condition: Stable cp Diagnosis - Cellulitis of right lower limb - foot cp - Chronic pain, not elsewhere classified cp Followup: cp - With: Private Physician - When: 2 - 3 days - Reason: Recheck today's complaints Discharge Instructions: - Discharge Summary Sheet cp - Cellulitis, Adult cp - Chronic Pain, Adult cp Forms: - Medication Reconciliation Form cp - Thank You Letter cp - Antibiotic Education cp - Prescription Opioid Use cp Prescriptions: - Doxycycline Hyclate 100 mg Oral Tablet - take 1 tablet by ORAL route every 12 hours; 20 tablet; Refills: 0, Product cp Selection Permitted Signatures: Dispatcher [employer] EDMejia Pimentel PA PA cp Sims, Marcus, DO DO ms3 Luh Noguera, RN RN jh5 Christine Loza RN RN kd3
[2022-01-22] MEDS ORDERED: HYDROCODONE/APAP 7.5/325 MG TAB ONE (22:12)
[2022-01-22] MEDS ORDERED: DOXYCYCLINE 100 MG CAP PO ONE (22:12)
[2022-01-22 23:10] VITALS: TEMP 98.5
[2022-01-22 23:12] VITALS: BP 115/75; O2SAT 94
--- NOTE | 2022-01-24 07:56 | EKG ---
Test Date: 2022-01-22 Test Time: 20:35:01 [employer] Architect: STEFFANIE MEASUREMENT RESULTS: Intervals: Rate: 90 GA: 180 QRSD: 88 QT: 416 QTc: 508 [place]: P: 58 GA: 180 QRS: 0 T: 59 INTERPRETIVE STATEMENTS: Normal sinus rhythm Nonspecific T wave abnormality Prolonged QT Abnormal ECG Compared to ECG 05/20/2019 20:44:18 T-wave abnormality now present Prolonged QT interval now present Myocardial infarct finding no longer present Electronically Signed On 01-24-22 07:54:40 CDT by Aron Howard
== END 2022-01-22 22:33 | disposition home or self-care (01) ==
LOC: ER 16:51
DX: L03.115 Cellulitis of right lower limb (principal); G89.29 Other chronic pain; Z20.822 Contact with and (suspected) exposure to COVID-19; Z88.5 Allergy status to narcotic agent
CPT/HCPCS: 96361; 87040 ×2; 87088; 85025; 87086; 80048; 36415; 83735; 87205 ×2; 85610; 80076; 83605; 81015; 84484; 84145; 83880; 87804 ×2; 71275; 74177; 71045; 73630; 96374; 99284; U0003; Q9967; J3010; J7030; 93005

== ENCOUNTER 2022-09-02 12:04 | Inpatient (IN) | payer OTHER ==
[2022-09-02] MEDS ORDERED: FAMOTIDINE 20 MG/2 ML VIAL IV ONE (12:31)
[2022-09-02] MEDS ORDERED: NA CHLORIDE 0.9% 1,000 ML ONE (12:31)
[2022-09-02] MEDS ORDERED: CEFTRIAXONE 1000 MG/VIAL ONE (12:33)
--- OUTSIDE RECORDS SUMMARY | 2022-09-02 12:52 | XMS REPORT | Continuity of Care Document ---
:1960 Author Organization [facility] [place] [facility] t Address [address] [facility] [address] [place] [address] Care Team Providers Name Role Phone AL AGUILAR Primary Care Physician Unavailable TAVO VIZCAINO Attending Clinician Unavailable Doctor Unassigned, [place] Attending Clinician Unavailable Al Aguilar MD Attending Clinician Payers Payer Name Policy Type Policy Number Effective Date Expiration Date Danielle koch [facility] [id number] 2016 00:00:00 PLUS Problems Condition Condition Condition Status Onset Resolution Last Treating Co mments Source Name Details Category Date Date Treatment Clinician Date Essential Essential Disease Active Uni vers hypertensi hypertensi 7-26 it y of on on 00:00: [place] [address] Medical Branch Obesity Obesity Disease Active Univers (BMI (BMI 5-25 ity of 30-39.9) 30-39.9) 00:00: [place] [address] Medical Branch Osteomyeli Osteomyeli Disease Active U [place] tis tis 5-24 ity of 00:00: [address] Positive Positive Disease Active 2015-06 Unive rs serology serology 1-15 ity of for for 00:00: [place] syphilis syphilis 00 Medica l Branch 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 1-15 it y of ve ve 00:00: [address] Trichomoni Trichomoni Disease Active 2015-06 U [place] asis asis 0-26 ity of 00:00: [address] Tobacco Tobacco Disease Active 2015-06 Univers use use 0-24 ity of 00:00: [place] 00 Medical Branch Arthralgia Arthralgia Disease Active 2015-06 U nivers of of 0-24 ity of multiple multiple 00:00: [place] joints joints 00 Medical Branch Seizure Seizure Disease Active 2015-06 Univers disorder disorder 0-24 ity of 00:00: [place] [facility] Accelerate Accelerate Disease Active 2015-06 U nivers d d 0-24 ity of hypertensi hypertensi [place] Chronic Chronic Disease Active 2015-06 Univers neck pain neck pain 0-24 ity of 00:00: [place] [facility] Chronic Chronic Disease Active Univers liver liver 6-17 ity of disease disease 00:00: [place] and and Medical cirrhosis cirrhosis Bran ch Pain of Pain of Disease Active Univers upper upper 6-17 ity of extremity, extremity, [place] unspecifie Me dical d d Branch laterality laterality Chronic Chronic Disease Active Univers liver liver 6-17 ity of disease disease 00:00: [place] and and Medical cirrhosis cirrhosis Bran ch Alcohol Alcohol Disease Active Univers use use 6-17 ity of 00:00: [place] [facility] Thrombocyt Thrombocyt Disease Active U nivers openia openia 6-17 ity of 00:00: [place] [facility] Alcohol Alcohol Disease Active Univers use use 6-17 ity of 00:00: [place] [facility] Thrombocyt Thrombocyt Disease Active U nivers openia openia 6-17 ity of 00:00: [place] [facility] Branch Cervical Cervical Disease Active Unive rs stenosis stenosis 3-16 ity of of spinal of spinal 00:00: [place] canal 00 [facility] Branch Bipolar I Bipolar I Disease Active Uni vers disorder, disorder, 8-31 ity of most most 00:00: [place] recent recent 00 Medical episode episode Branch (or (or current) current) depressed, depressed, severe, severe, without without mention of mention of psychotic psychotic behavior behavior HLD HLD Disease Active Univers (hyperlipi (hyperlipi it y of demia) demia) [facility] Hepatic Hepatic Disease Active Univers cirrhosis cirrhosis ity of [facility] Acquired Acquired Disease Active Unive rs hypothyroi hypothyroi it y of dism dism [facility] Allergies, Adverse Reactions, Alerts Allergy Allergy Status Severity Reaction(s) Onset Inactive Treating Comm ents Source Name Type Date Date Clinician Penicill Propensi Active Rash 2006- Univer s ins ty to 8 ity of adverse 00:00: [place] reaction 00 [facility] PENICILL Drug Active Rash 2006- Univers INS Class 8-29 ity of 00:00: [place] 00 [facility] Penicill Propensi Active Rash 2006- Univer s ins ty to 8 ity of adverse 00:00: [place] reaction 00 [facility] Social History Social Habit Start Date Stop Date Quantity Comments Source History of tobacco Cigarette Smoker University of use [facility] Alcohol intake 2019-05-22 2019-05-22 .86 /d University of 00:00:00 00:00:00 [facility] Tobacco use and 2015-08-01 2015-08-01 Smokeless Universit y of exposure 00:00:00 00:00:00 tobacco non-user [facility] Cigarettes smoked 2015-08-01 2015-08-01 Univers ity of current (pack per 00:00:00 00:00:00 [facility] ) - Reported Branch Cigarette 2015-08-01 2015-08-01 University of pack-years 00:00:00 00:00:00 [facility] Tobacco Comment 2014-12-26 2014-12-26 smokes 6 cig/day Uni versity of 00:00:00 00:00:00 [facility] Sex [birth year] At [birth year] Universit y of 00:00:00 00:00:00 [facility] Smoking Status Start Date Stop Date Source Smokes tobacco daily 2015-08-01 00:00:00 Univers ity of [facility] Medications Ordered Filled Start Stop Current Ordering Indication Dosage Frequency Signature Comments Components Source Medication Medication Date Date Medication? Clinician (SIG) Name Name gabapentin 2018-06 Yes [id number] 400mg Take 1 Univers (NEURONTIN) 2-14 capsule by it y of 400 mg 00:00: mouth 3 [place] capsule 00 (three) Medical times [place] daily. cyclobenzap 2018-06 Yes [id number] 10mg Take 1 Univers rine 10 mg 2-14 tablet by ity of tablet 00:00: mouth 3 [place] 00 (three) Medical times [place] daily. amLODIPine Yes [id number] 5mg Take 1 U nivers 5 mg tablet 7-26 tablet by ity of 00:00: mouth [place] 00 daily. Medical Branch cyclobenzap Yes [id number] 10mg Take 1 Univers rine 10 mg 7-26 tablet by ity of tablet 00:00: mouth (three) Medical times Branch daily as needed for Muscle Spasms. gabapentin 2019- Yes [id number] 400mg Take 1 Univers 400 mg 7-26 capsule by ity of capsule 00:00: mouth (three) Medical times Branch daily. amLODIPine 2019- Yes [id number] 5mg Take 1 U nivers 5 mg tablet 7-26 tablet by ity of 00:00: mouth 00 daily. Medical Branch cyclobenzap Yes [id number] 10mg Take 1 Univers rine 10 mg 7-26 tablet by ity of tablet 00:00: mouth (three) Medical times Branch daily as needed for Muscle Spasms. gabapentin 2018- Yes [id number] 400mg Take 1 Univers 400 mg 7-26 capsule by ity of capsule 00:00: mouth (three) Medical times Branch daily. amLODIPine Yes [id number] 5mg Take 1 U nivers 5 mg tablet 7-26 tablet by ity of 00:00: mouth 00 daily. Medical Branch amLODIPine 2018-0 Yes [id number] 5mg Take 1 U nivers 5 mg tablet 7-26 tablet by ity of 00:00: mouth 00 daily. Medical Branch cyclobenzap Yes [id number] 10mg Take 1 Univers rine 10 mg 7-26 tablet by ity of tablet 00:00: mouth (three) Medical times Branch daily as needed for Muscle Spasms. gabapentin 2018- Yes [id number] 400mg Take 1 Univers 400 mg 7-26 capsule by ity of capsule 00:00: mouth (three) Medical times Branch daily. LEVOTHYROXI Yes TAKE 1 Univ ers NE 75 mcg 5-07 TABLET BY ity o f tablet 00:00: MOUTH 00 EVERY Medical MORNING Branch LEVETIRACET 2017-0 Yes TAKE 1 Univ ers AM 500 mg 5-07 TABLET BY ity o f tablet 00:00: MOUTH 00 TWICE A Medical DAY Branch LISINOPRIL 2017- Yes TAKE 1 Unive rs 40 mg [...] MOUTH 00 EVERY Medical MORNING Branch LEVETIRACET [id number] Yes TAKE 1 Univ ers AM 500 [...] BY ity of mg tablet 00:00: MOUTH [place] 00 TWICE A Medical DAY Branch METOPROLOL 2018-0 2019- No TAKE 1 Univ ers TARTRATE 50 3-12 07-26 TABLET BY it y of mg tablet 00:00: 00:00 MOUTH [place] 00 :00 TWICE A Medical DAY Branch GABAPENTIN 2017- Yes TAKE 3 Unive rs 300 mg 0-27 CAPSULES ity of capsule 00:00: BY MOUTH [place] 00 THREE Medical TIMES Branch DAILY. GABAPENTIN 2016- 2019- No TAKE 3 Univ ers 300 mg 0-27 07-26 CAPSULES ity of capsule 00:00: 00:00 BY MOUTH [place] 00 :00 THREE Medical TIMES Branch DAILY. Walker 2017-0 Yes [id number] Use as Unive rs (ULTRA-LIGH 6-27 directed ity of T ROLLATOR) 00:00: [place] [address] Medical Branch Walker 2017-0 Yes [id number] Use as Unive rs (ULTRA-LIGH 6-27 directed ity of T ROLLATOR) 00:00: [place] [address] Medical Branch Walker 2017-0 Yes [id number] Use as Unive rs (ULTRA-LIGH 6-27 directed ity of T ROLLATOR) 00:00: [place] [address] Medical Branch Walker 2017-0 Yes [id number] Use as Unive rs (ULTRA-LIGH 6-27 directed ity of T ROLLATOR) 00:00: [place] [address] Medical Branch Walker 2017-0 Yes [id number] Use as Unive rs (ULTRA-LIGH 6-27 directed ity of T ROLLATOR) 00:00: [place] [address] Medical Branch metroNIDAZO 2017-0 Yes 500mg Take 1 Uni vers LE 500 mg 6-12 tablet by ity o f tablet 00:00: mouth 2 [place] (two) Medical times Branch daily. metroNIDAZO 2017-0 Yes 500mg Take 1 Uni vers LE 500 mg 6-12 tablet by ity o f tablet 00:00: mouth 2 [place] (two) Medical times Branch daily. metroNIDAZO 2017-0 Yes 500mg Take 1 Uni vers LE 500 mg 6-12 tablet by ity o f tablet 00:00: mouth 2 [place] (two) Medical times Branch daily. metroNIDAZO 2017-0 [...] (two) Medical times Branch daily. aspirin 81 2017-0 Yes 81mg Take 81 mg U nivers mg chewable 6-09 by mouth ity of tablet 20:00: daily. [address] aspirin 81 2017-0 Yes 81mg Take 81 mg U nivers mg chewable 6-09 by mouth ity of tablet 20:00: daily. [address] aspirin 81 2017-0 Yes 81mg Take 81 mg U nivers mg chewable 6-09 by mouth ity of tablet 20:00: daily. [address] aspirin 81 2017-0 Yes 81mg Take 81 mg U nivers mg chewable 6-09 by mouth ity of tablet 20:00: daily. [address] aspirin 81 2017-0 Yes 81mg Take 81 mg U nivers mg chewable 6-09 by mouth ity of tablet 15:00: daily. [address] KCL 10 mEq 2017-0 Yes [id number] 10meq Take 1 Univers tablet 6-09 tablet by ity of 00:00: mouth [place] 00 daily. Medical Branch KCL 10 mEq Yes [id number] 10meq Take 1 Univers tablet 6-09 tablet by ity of 00:00: mouth [place] 00 daily. Medical Branch KCL 10 mEq Yes [id number] 10meq Take 1 Univers tablet 6-09 tablet by ity of 00:00: mouth [place] 00 daily. Medical Branch KCL 10 mEq Yes [id number] 10meq Take 1 Univers tablet 6-09 tablet by ity of 00:00: mouth [place] 00 daily. Medical Branch KCL 10 mEq Yes [id number] 10meq Take 1 Univers tablet 6-09 tablet by ity of 00:00: mouth [place] 00 daily. Medical Branch baclofen 10 Yes Univer s mg tablet 6- ity of 00:00: [place] 00 Medical Branch baclofen 10 2019- No Unive rs mg tablet 11-12 07- ity of 00:00: 00:00 [place] 00 :00 Medical Branch mupirocin 2 Yes Apply to Un ac % ointment 5-26 area(s) 3 ity of 00:00: (three) [place] 00 times Medical daily. Branch mupirocin 2 Yes Apply to Un ac % ointment 5-26 area(s) 3 ity of 00:00: (three) [place] 00 times Medical daily. Branch mupirocin 2 Yes Apply to Un ac % ointment 5-26 area(s) 3 ity of 00:00: (three) [place] 00 times Medical daily. Branch mupirocin 2 Yes Apply to Un ac % ointment 5-26 area(s) 3 ity of 00:00: (three) [place] 00 times Medical daily. Branch mupirocin 2 Yes Apply to Un ac % ointment 5-26 area(s) 3 ity of 00:00: (three) [place] 00 times Medical daily. Branch acetaminoph 2015-06 Yes [id number] 1{tbl} Take 1 Univers en-codeine 1-17 07 tablet by ity of (TYLENOL 00:00: mouth [place] #3) 300-30 00 every 6 Medica l mg tablet (six) Branch hours as needed for Pain (scale 7-10) or Pain unrelieved by non-narcot ic analgesics . acetaminoph 2015-06 2019- No [id number] 1{tbl} Take 1 Univers en-codeine -17 01-01 07 tablet by ity of (TYLENOL 00:00: [...] daily as needed for Muscle Spasms. cyclobenzap 2015-06- No 10mg Take 1 Uni vers rine 0-24 - tablet by ity of (FLEXERIL) 00:00: 00:00 mouth 3 [place] 10 mg 00 :00 (three) Medical tablet times Branch daily as needed for Muscle Spasms. Immunizations Ordered Filled Immunization Date Status Comments [facility] e Immunization Name Name TDAP (ADACEL) 2016-04-25 Completed University of VACCINE 00:00:00 [facility] TDAP (ADACEL) 2016-04-25 Completed University of VACCINE 00:00:00 [facility] TDAP (ADACEL) 2016-04-25 Completed University of VACCINE 00:00:00 [facility] TDAP (ADACEL) 2016-04-25 Completed University of VACCINE 00:00:00 [facility] TDAP (ADACEL) 2016-04-25 Completed University of VACCINE 00:00:00 [facility] Influenza Virus 2016-04-01 Completed Universit y of Vaccine Quad IM 00:00:00 [place] Med ical Multi-dose 6+ MO Branch Influenza [...] [place] Med ical Multi-dose 6+ MO Branch Pneumococcal 2015-08-24 Completed University o f Polysaccharide, 00:00:00 [place] Med ical PPSV23 (PNEUMOVAX) Branch Influenza Virus 2015-08-24 Completed Universit y of Vaccine Quad IM 3+ 00:00:00 [facility] Pneumococcal 2015-08-24 Completed University o f Polysaccharide, 00:00:00 [place] Med ical PPSV23 (PNEUMOVAX) Branch Influenza Virus 2015-08-24 Completed Universit y of Vaccine Quad IM 3+ 00:00:00 [facility] Pneumococcal 2015-08-24 Completed University o f Polysaccharide, 00:00:00 [place] Med ical PPSV23 (PNEUMOVAX) Branch Influenza Virus 2015-08-24 Completed Universit y of Vaccine Quad IM 3+ 00:00:00 [facility] Pneumococcal 2015-08-24 Completed University o f Polysaccharide, 00:00:00 [place] Med ical PPSV23 (PNEUMOVAX) Branch Influenza Virus 2015-08-24 Completed Universit y of Vaccine Quad IM 3+ 00:00:00 [facility] Pneumococcal 2015-08-24 Completed University o f Polysaccharide, 00:00:00 [place] Med ical PPSV23 (PNEUMOVAX) Branch Influenza Virus 2015-08-24 Completed Universit y of Vaccine Quad IM 3+ 00:00:00 [facility] HEPATITIS A 2014-10-06 Completed University of 00:00:00 [facility] Vital Signs Vital Name Observation Time Observation Value Comments Source Systolic blood 2019-01-01 13:32:00 142 mm[Hg] Univer sity of pressure [facility] Diastolic blood 2019-01-01 13:32:00 100 mm[Hg] Unive rsity of pressure [facility] Heart rate 2019-01-01 13:32:00 86 /min [facility] Body temperature 2019-01-01 13:32:[address] [facility] height 2019-01-01 13:32:00 165.1 cm [facility] Body weight 2019-01-01 13:32:00 81.647 kg [facility] BMI 2019-01-01 13:32:00 29.95 kg/m2 [facility] Procedures Procedure Date / Time Performing Clinician Source Performed REFERRAL- 2022-04-07 05:01:00 Doctor Unassigned, No [facility] REQUEST/RESPONSE [facility] Branch AUTHORIZATION FOR 2019-02-18 05:01:00 Doctor Unassigned, No [facility] RELEASE OF PHI Name [facility] COMP. METABOLIC PANEL 2019-01-01 13:52:00 Al Aguilar [facility] ([id number]) Medical [place] LIPID PANEL 2019-01-01 13:52:00 Al Aguilar [facility] ([id number])(TOTAL Medical Branch CHOLESTEROL, TRIGLYCERIDES, HDL) CBC WITH DIFFERENTIAL 2019-01-01 13:52:00 [facility] 2019-01-01 13:15:46 Doctor Gomez, No [facility] Encounters Start End Encounter Admission Attending Care Care Encounter Source Date/Time Date/Time Type Type Clinicians Facility Department ID 2022-09-05 2022-09-05 [id number] Univers 14:00:00 14:00:00 [facility]22-[facility]-24 2022-07-24 Outpatient Shonda VIZCAINO [facility] [id number] Univers 13:15:00 13:15:00 [facility] 2022-06-26 2022-06-26 Outpatient LEYDA CRABTREE [id number] [place] 10:10:22 10:10:22 [id number] [facility] 2022-04-07 2022-04-07 Orders Doctor FLANNERY [id number] Univers 00:00:00 00:00:00 Only UnassignedTAYLOR [id number] ity of [place] [facility] [id number] [place] [phone] [address] 2022-03-26 2022-03-26 Outpatient SFA SFA [id number] [place] 10:47:27 10:47:27 [id number] [facility] 2019-02-18 2019-02-18 Orders Doctor PRUDENCIO [id number] Univers 00:00:00 00:00:00 Only UnassignedTAYLOR [id number] ity of [place] [facility] [id number] [place] [phone] [address] 2019-01-24 2019-01-[address] [facility] [id number] Univers 00:00:00 00:00:00 [facility] [id number] ity of [place] [id number] [place] as Professio [phone] [address] Office [address] 2019-01-01 2019-01-[address] [facility] [id number] [facility] 08:17:32 09:01:49 Visit [facility] [id number] ity of [place] [id number] [place] as Professio [phone] [address] Office [address] [facility] 2019-01-01 2019-01-01 Orders Doctor PRUDENCIO [id number] Univers 00:00:00 00:00:00 Only Unassigned, TAYLOR [id number] ity of [place] [facility] [id number] [place] as [phone] [address] Results Test Description Test Time Test Comments Results Result Comments Source TSH, THIRD GENERATION 2022-01-02 04:53:46 Test Item Value Reference Range Interpretation Comme nts TSH, THIRD GENERATION (test 89.300 UIU/ML 0.400-4.100 H UNLESS OTHERWISE INDICATED, code = 2821) ALL TESTING PER [facility] ATCLINICAL PATH [facility] [place] [id number] PHOTOGRAPHIC ARTIST: Ethan HARTMAN [id number] [facility] [place]. [id number] CBC W/AUTO DIFF WITH [id number] 04:43:48 Test Item Value Reference Range Interpretation [...] RBCS 0.00 K/UL 0.00-0.11 (test code = 06926) LIPID [id number] 03:18:10 Test Item Value Reference Range Interpretation [...] MOREINFORMATION , SEE CLIENT ANNOUNCE MENT AT [email or web address] /[email or web address] RISK RATIO LDL/HDL 1.78 RATIO <3.22 (test code = 2238) COMPREHENSIVE METABOLIC [id number] 03:18:10 Test Item Value Reference Range Interpretation Comments GLUCOSE (test code = 98 MG/DL 70-99 2216) BUN (test code = 12 MG/DL 8-23 2207) CREATININE (test 0.81 MG/DL 0.60-1.30 code = 221) eGFR (2020 CKD-EPI) 83 ML/MIN/1.73 >60 (test code = 38101) CALC BUN/CREAT (test 15 RATIO 6-28 code = 2235) SODIUM (test code = 141 MEQ/L 873-439 0440) POTASSIUM (test code 4.3 MEQ/L 3.5-5.4 = 2227) CHLORIDE (test code 103 MEQ/L 95-107 = 2214) CARBON DIOXIDE (test 29 MEQ/L 19-31 code [...] message] (test code = 2207) The syste m which generated this result transmit amelie reference range : <=1.2. The refe rence range was not u sed to interpret th is result as normal/abnormal . ALKALINE PHOSPHATASE 101 U/L 40-140 (test code = 2204) AST (test code = 77 U/L 9-40 H 2217) ALT (test code = 47 U/L 5-40 H 2218) COMP. METABOLIC PANEL ([id number])2019-01-01 16:13:00 Test Item Value Reference Range Interpretation Comments NA (test code = 142 mmol/L 135-145 4073936537) K (test code = 5.6 mmol/L 3.5-5 H 5911252536) CL (test code = 106 mmol/L 98-108 2051068560) CO2 TOTAL (test code = 28 mmol/L 23-31 7859750028) AGAP (test code = 2-16 1876857774) BUN (test code = 6 mg/dL 7-23 L 2897766293) GLUCOSE (test code = 105 mg/dL 70-110 2473991068) CREATININE (test code = 0.79 mg/dL 0.5-1.04 6204580406) TOTAL BILI (test code = 1.3 mg/dL 0.1-1.1 H 7477297474) CALCIUM (test code = 9.1 mg/dL 8.6-10.6 4419533282) T PROTEIN (test code = 8.7 g/dL 6.3-8.2 H 9015150569) ALBUMIN (test code = 4.0 g/dL 3.5-5 6559896896) ALK PHOS (test code = 72 U/L 34-122 5326008523) ALT(SGPT) (test code = 58 U/L 9-51 H 8308807815) AST(SGOT) (test code = 87 U/L 13-40 H 6058397573) eGFR Calculation mL/min/1.73m2 (Non-) (test code = 1206007304) eGFR Calculation mL/min/1.73m2 () (test code = 1040683897) ROMY (test code = ROMY) Association of Glomerular Filtration Rate (GFR) and Staging of Kidney Disease*+ + + +| GFR (mL/min/1.73 m2)?| With Kidney Damage?|?Without Kidney Damage+ --------+ --------+ +|?>90?|?S ambrosioe one?|? Normal?+ ---------+ ---------+ +|?60-89? |?Stage two?|? [...] tests). Lab Interpretation Abnormal (test code = 26536-5) [facility]TOTAL CHOLESTEROL, TRIGLYCERIDES, HDL)2019-01-01 16:13:00 Test Item Value Reference Range Interpretation Comments CHOL (test code = 160 mg/dL 120-200 3549349422) HDL (test code = 61 mg/dL >50 6268211120) HDLC RATIO (test code = See_Comment [Au tomated message] [id number]) The system [employer] generated this result transmit amelie reference range : <=4.5. The refe rence range was not u sed to interpret th is result as normal/abnormal . TRIG (test code = 73 mg/dL 30-170 8405721260) LDL CHOL (test code = 84 mg/dL See_Comment [Auto mated message] 96020-4) The system [employer] generated this result transmit amelie reference range : <=160. The refe rence range was not u sed to interpret th is result as normal/abnormal . VLDL (test code = 15 mg/dL 5-60 7799829281) Lab Interpretation (test Normal code = 59417-3) [facility]"
[2022-09-02 13:38] LABS: Absolute Lymphocytes (CBC) 1.5 K/uL (0.7-4.9); Lymphocytes % 39.9 % (15.3-44.8); MCV 91.5 fL (80-100); MPV 8.8 fL (7.6-11.3); Protime INR 1.19; RBC Red Blood Cell Count 4.92 M/uL (3.86-4.86)
--- NOTE | 2022-09-02 14:08 | RAD REPORT ---
EXAM DESCRIPTION: CT - Head C Spine Cap Wo Con - 09/02/2022 1:01 pm CLINICAL HISTORY: Trauma, head and neck injury. Chest, abdomen and pelvis pain. PAIN COMPARISON: Head C Spine Cap W Con dated 05/13/2019; Head C Spine Cap W Con dated 03/11/2019 TECHNIQUE: CT head without contrast. CT cervical spine without contrast with coronal and sagittal reformatted images. CT chest, abdomen and pelvis with coronal and sagittal reformatted images of the spine. All CT scans are performed using dose optimization technique as appropriate and may include automated exposure control or mA/KV adjustment according to patient size. FINDINGS: CT HEAD WITHOUT CONTRAST: No intracranial hemorrhage, hydrocephalus or extra-axial fluid collection. No acute large vascular te rritory infarct. Moderate chronic small vessel ischemic changes. Partially empty sella. The paranasal sinuses and mastoids are clear. The calvarium is intact. CT CERVICAL SPINE WITHOUT CONTRAST: No fracture or subluxation. Posterior fusion at C3 through C6. Loss of the normal cervical lordosis. Multilevel cervical spondylosis. Mild lucency around the C6 screws noted. The prevertebral soft tissues are normal in thickness.Diffusely enlarged thyroid. CT CHEST, ABDOMEN, PELVIS: Thorax: Chest Wall: No abnormal mass Lungs: No acute abnormality. Pleura: No effusions or pneumothorax. Marci/Mediastinum: No lymphadenopathy. Aorta/Pulmonary Arteries: Unremarkable Heart: Normal size. Aortic valve calcifications. Multi-vessel coronary artery disease. Abdomen/Pelvis: Liver: Cirrhotic liver morphology. Biliary: No biliary ductal dilatation. Stomach: No significant focal abnormality. Duodenum: No significant focal abnormality. Pancreas: No significant abnormality. Spleen: No significant abnormality. Adrenal: No suspicious lesions. Kidney/ureter: No hydronephrosis. No renal calculi. Retroperitoneum: No retroperitoneal adenopathy. Vascular: No aneurysm. Bowel: No significant focal abnormality. Normal appendix. Peritoneum: No ascites or free air. Bladder: Grossly unremarkable. Reproductive: No adnexal masses. Tubal ligation clips Bones: No acute fracture. Chronic fusion of the pubic symphysis. Advanced degenerative changes are pr esent at L4-5. Grade 2 anterolisthesis of L5 on S1 with fusion across the joint space and bilateral p ars defects. Schmorl's node in the superior endplate of L3. Other: n/a IMPRESSION: Negative for acute traumatic findings.
[2022-09-02 14:11] LABS: SARS-COV-2 RT PCR NEGATIVE (NEGATIVE)
[2022-09-02 14:24] LABS: Albumin 2.8 g/dL (3.4-5.0); Bilirubin Direct 0.4 mg/dL (0-0.2); Bilirubin Total 1.1 mg/dL (0.2-1.0); Magnesium 2.2 mg/dL (1.6-2.4); Potassium 3.1 mEq/L (3.5-5.1); Protein, Total 7.4 g/dL (6.4-8.2); Troponin High Sensitivity 13.7 pg/mL (<58.9)
--- NOTE | 2022-09-02 14:43 | RAD REPORT ---
EXAM DESCRIPTION: RAD - Chest Single View - 09/02/2022 2:30 pm CLINICAL HISTORY: COUGH COMPARISON: Chest Single View dated 01/22/2022; Chest Single View dated 05/13/2019; Chest Single View dated 03/11/2019; Chest Single View dated 11/17/2017; Head C Spine Cap Wo Con dated 09/02/2022 FINDINGS: Lines: None. Lungs: Scarring in the right middle lobe simulates the presence of an airspace process the location. Chronically coarsened interstitium. Pleural: No significant pleural effusions or pneumothorax. Cardiac: Similar size and configuration . Mediastinum: Within normal limits. Bones: No acute fractures. Fusion hardware in the cervical spine. Other: None IMPRESSION: Coarsened interstitial markings. Referencing the same-day chest CT, no acute process tasneem ntified.
[2022-09-02] MEDS ORDERED: POTASSIUM 25 MEQ EFFERV TAB ONE (15:53)
--- NOTE | 2022-09-02 16:33 | EDPHYS ---
Physician Documentation [facility] Name: Maisha Loe Age: 62 yrs Sex: Female : 1960 Arrival Date: 09/02/2022 Time: 12:16 Bed 8 Private MD: NELDA Physician Mejia Juares HPI: 09/02 16:20 This 62 yrs old Female presents to ER via EMS with complaints of WEAKNESS, godfrey FALL AND AMS. 16:20 WEAK , UNKEPT , FALL, ON FLOOR. Details of fall: The patient fell from an upright godfrey position, while walking. Onset: The symptoms/episode began/occurred just prior to arrival, this morning. Associated injuries: The patient sustained injury to the head. Severity of symptoms: At their worst the symptoms were mild, in the emergency department the symptoms are unchanged. Severity of symptoms: At their worst the symptoms were mild in the emergency department the symptoms are unchanged. The patient has experienced similar episodes in the past, a few times. Historical: - Allergies: 12:20 PENICILLINS; ko1 - PMHx: 12:20 ADD/ADHD; Bipolar disorder; Cerebrovascular accident; Cirrhosis; COPD; CVA; Left sided ko1 weakness; Fibromyalgia; Hypothyroidism; Hypertension; Myocardial infarction; Seizures; - PSHx: 12:20 right big toe; ko1 - Immunization history:: Adult Immunizations unknown. - Social history:: Smoking status: Patient reports the use of cigarette tobacco products, denies chronic smoking, but will smoke occasionally. - Family history:: not pertinent. ROS: 16:22 Eyes: Negative for injury, pain, redness, and discharge, ENT: Negative for injury, godfrey pain, and discharge, Neck: Negative for injury, pain, and swelling, Cardiovascular: Negative for chest pain, palpitations, and edema, Abdomen/GI: Negative for abdominal pain, nausea, vomiting, diarrhea, and constipation, Back: Negative for injury and pain, : Negative for injury, bleeding, discharge, and swelling, MS/Extremity: Negative for injury and deformity, Skin: Negative for injury, rash, and discoloration, Psych: Negative for depression, anxiety, suicide ideation, homicidal ideation, and hallucinations, Allergy/Immunology: Negative for hives, rash, and allergies, Endocrine: Negative for neck swelling, polydipsia, polyuria, polyphagia, and marked weight changes, Hematologic/Lymphatic: Negative for swollen nodes, abnormal bleeding, and unusual bruising. 16:22 Constitutional: Positive for body aches, malaise. 16:22 Respiratory: Positive for cough, shortness of breath, at rest. 16:22 Neuro: Positive for altered mental status, weakness. Exam: 16:22 Constitutional: This is a well developed, well nourished patient who is awake, alert, godfrey and in no acute distress. Head/Face: Normocephalic, atraumatic. Eyes: Pupils equal round and reactive to light, extra-ocular motions intact. Lids and lashes normal. Conjunctiva and sclera are non-icteric and not injected. Cornea within normal limits. Periorbital areas with no swelling, redness, or edema. ENT: Nares patent. No nasal discharge, no septal abnormalities noted. Tympanic membranes are normal and external auditory canals are clear. Oropharynx with no redness, swelling, or masses, exudates, or evidence of obstruction, uvula midline. Mucous membranes moist. Neck: Trachea midline, no thyromegaly or masses palpated, and no cervical lymphadenopathy. Supple, full range of motion without nuchal rigidity, or vertebral point tenderness. No Meningismus. Chest/axilla: Normal chest wall appearance and motion. Nontender with no deformity. No lesions are appreciated. Cardiovascular: Regular rate and rhythm with a normal S1 and S2. No gallops, murmurs, or rubs. Normal PMI, no JVD. No pulse deficits. Abdomen/GI: Soft, non-tender, with normal bowel sounds. No distension or tympany. No guarding or rebound. No evidence of tenderness throughout. Back: No spinal tenderness. No costovertebral tenderness. Full range of motion. Female : Normal external genitalia. Skin: Warm, dry with normal turgor. Normal color with no rashes, no lesions, and no evidence of cellulitis. MS/ Extremity: Pulses equal, no cyanosis. Neurovascular intact. Full, normal range of motion. Psych: Awake, alert, with orientation to person, place and time. Behavior, mood, and affect are within normal limits. 16:22 ECG was reviewed by the Attending Physician. 16:22 Respiratory: mild respiratory distress is noted, Respirations: normal, no acute changes, Breath sounds: bronchial sounds, that are mild, are scattered, decreased breath sounds, that are mild, are scattered, rhonchi, that are mild, are scattered, stridor, is not appreciated, wheezing: expiratory is scattered. 17:59 Neuro: Orientation: is normal, appropriate for stated age, no acute changes, Mentation: godfrey is normal, appropriate for stated age, no acute changes, Memory: is normal, appropriate for stated age, no acute changes, Motor: moves all fours, Sensation: no obvious gross deficits, appropriate Gait: not tested. seizure activity, is not displayed by the patient. Vital Signs: 12:17 BP 132 / 90; Pulse 74; Resp 18; Temp 97(O); Pulse Ox 98% ; Weight 72.57 kg; Height 5 ko1 ft. 5 in. ; Pain 10/10; 13:00 BP 137 / 92; Pulse 77; Resp 16; Pulse Ox 96% ; ko1 13:30 BP 136 / 92; Pulse 82; Resp 16; Pulse Ox 98% ; ko1 14:00 BP 142 / 98; Pulse 83; Resp 16; Pulse Ox 98% ; ko1 16:45 BP 129 / 87; Pulse 85; Resp 18; Pulse Ox 99% ; ko1 18:00 BP 150 / 99; Pulse 90; Resp 14; Pulse Ox 92% ; bp 20:33 BP 131 / 95; Pulse 95; Resp 18 S; Pulse Ox 93% on R/A; as6 12:17 Body Mass Index 26.63 (72.57 kg, 165.1 cm) ko1 12:17 Pain Scale: Adult ko1 NIH Stroke Scale Scores: 17:59 NIHSS Score: 0 godfrey MDM: 12:17 Patient medically screened. godfrey 16:26 Differential Diagnosis altered mental status. Differential diagnosis: closed head godfrey injury, contusion, multiple trauma. Data reviewed: vital signs, nurses notes, lab test result(s), EKG, radiologic studies, CT scan, plain films. Consideration of Admission/Observation Patient was admitted/placed on observation. Escalation of care including admission/observation considered. I considered the following discharge prescriptions or medication management in the emergency department Medications were administered in the Emergency Department. See MAR. Test considered but Not performed: MRI: MRI BRAIN WO. Care significantly affected by the following chronic conditions: Liver Disease, CVA, BIPOLAR DO,ADHD, ADD. Counseling: I had a detailed discussion with the patient and/or guardian regarding: the historical points, exam findings, and any diagnostic results supporting the discharge/admit diagnosis, lab results, radiology results, the need for further work-up and treatment in the hospital. 17:58 ED course: PT ON FLOOR FOR SEVERAL HOURS PRIOR TO ARRIVAL, NO CLEAR TIME. [facility] 09/02 12:19 Order name: Basic Metabolic Panel; Complete Time: 15:05 [facility] 09/02 12:19 Order name: CBC with Diff; Complete Time: 15: [facility] 09/02 12:19 Order name: LFT's; Complete Time: 15: [facility] 09/02 12:19 Order name: Magnesium; Complete Time: 15: [facility] 09/02 12:19 Order name: NT PRO-BNP; Complete Time: 15: [facility] 09/02 12:19 Order name: PT-INR; Complete Time: 15: [facility] 09/02 12:19 Order name: Troponin HS; Complete Time: 15: [facility] 09/02 12:19 Order name: Lipase; Complete Time: 15: [facility] 09/02 12:19 Order name: Urinalysis w/ reflexes [facility] 09/02 12:19 Order name: CK; Complete Time: 15: [facility] 09/02 12:19 Order name: COVID-19/FLU A+B; Complete Time: 15: [facility] 09/02 12:19 Order name: Blood Culture Adult (2) [facility] 09/02 12:19 Order name: Lactate w/ 2H reflex if indic.; Complete Time: 15:05 [facility] 09/02 13:36 Order name: Asprin; Complete Time: 15: [facility] 09/02 13:36 Order name: Acetaminophen; Complete Time: 15: [facility] 09/02 13:36 Order name: UDS [facility] 09/02 13:41 Order name: ETOH Level; Complete Time: 15:05 bp 09/02 16:22 Order name: AMMONIA [facility] 09/02 19:33 Order name: Phosphorus [facility] 09/02 19:33 Order name: NT PRO-BNP [facility] 09/02 19:33 Order name: T4 Free [facility] 09/02 19:33 Order name: Magnesium [facility] 09/02 19:33 Order name: Thyroid Stimulating Hormone [facility] 09/02 19:58 Order name: Lipid Profile [facility] 09/02 12:19 Order name: XRAY Chest (1 view); Complete Time: 15: [facility] 09/02 12:19 Order name: CT Traumagram (Head C Spine CAP wo con); Complete Time: 15:05 [facility] 09/02 16:35 Order name: MRI Stroke Protocol 09/02 12:19 Order name: EKG; Complete Time: 12:20 [facility] 09/02 12:19 Order name: Cardiac monitoring; Complete Time: 12:30 [facility] 09/02 12:19 Order name: EKG - Nurse/Tech; Complete Time: 15:59 [facility] 09/02 12:19 Order name: IV Saline Lock; Complete Time: 12:59 [facility] 09/02 12:19 Order name: Labs collected and sent; Complete Time: 12:59 [facility] 09/02 12:19 Order name: O2 Per Protocol; Complete Time: 12:30 [facility] 09/02 12:19 Order name: O2 Sat Monitoring; Complete Time: 12:30 [facility] 09/02 13:44 Order name: Labs - recollect needed: recollect light green top; Complete Time: 13:57 bd EC:22 Rate is 78 beats/min. Rhythm is regular. QRS Meno is Normal. AK interval is normal. QRS godfrey interval is normal. QT interval is normal. No Q waves. T waves are Normal. No ST changes noted. Clinical impression: NSR w/ Non-specific ST/T Changes and No evidence of ischemia. Interpreted by me. Administered Medications: 12:44 Drug: Famotidine IVP 20 mg Route: IVP; Site: right antecubital; ko1 20:38 Follow up: Response: No adverse reaction as6 12:44 Drug: NS 0.9% IV 1000 ml Route: IV; Rate: 1 bolus; Site: right antecubital; ko1 20:38 Follow up: Response: No adverse reaction; IV Status: Completed infusion; IV Intake: as6 1000ml 12:45 Drug: Rocephin IV 1 grams Route: IV; Rate: per protocol; Site: right antecubital; ko1 20:37 Follow up: Response: No adverse reaction; IV Status: Completed infusion; IV Intake: 45kjre4 16:08 Drug: Potassium PO Effervescent Tablet 50 mEq Route: PO; ko1 20:38 Follow up: Response: No adverse reaction as6 16:55 Drug: MethylPrednisoLONE IVP 125 mg Route: IVP; Site: right antecubital; ko1 20:39 Follow up: Response: No adverse reaction as6 16:56 Drug: Levalbuterol Inhalation 1.25 mg Route: Inhalation; ko1 20:38 Follow up: Response: No adverse reaction as6 16:56 Drug: Ipratropium Inhalation Aerosol 0.5 mg Route: Inhalation; ko1 20:38 Follow up: Response: No adverse reaction as6 18:16 Drug: Aspirin PO 81 mg Route: PO; ko1 20:39 Follow up: Response: No adverse reaction as6 Disposition Summary: 09/02/22 16:32 Hospitalization Ordered Hospitalization Status: Observation godfrey Provider: Speedy Mix cha Location: Telemetry/MedSurg (observation) godfrey Condition: Fair godfrey Problem: new godfrey Symptoms: have improved godfrey Bed/Room Type: Standard godfrey Room Assignment: 402(09/02/22 17:43) dw Diagnosis - Repeated falls godfrey - Weakness godfrey - Altered mental status, unspecified godfrey - Tobacco use godfrey - Tobacco abuse counseling godfrey - Hypokalemia godfrey Forms: - Medication Reconciliation Form godfrey - SBAR form godfrey NIH Stroke Scale - NIH Stroke Score Date: 09/02/2022 Time: 17:59 Total Score = 0 10. Dysarthria (speech clarity - read or repeat words) - 0(Normal) 11. Extinction and Inattention (visual/tactile/auditory/spatial/personal) - 0(No abnormality) 1a. Level of Consciousness (LOC) - 0(Alert) 1b. Level of Consciousness (LOC) (Month \T\ Age) - 0(Both) 1c. LOC Commands (Open \T\ Closes Eyes/Youth Program Director) - 0(Both) 2. Best Gaze (Lateral Gaze Paresis) - 0(Normal) 3. Visual Field Loss - 0(No visual loss) 4. Facial Palsy - 0(Normal) 5a. Left Arm: Motor (10-second hold) - 0(No drift) 5b. Right Arm: Motor (10-second hold) - 0(No drift) 6a. Left Leg: Motor (5-second hold - always test supine) - 0(No drift) 6b. Right Leg: Motor (5-second hold - always test supine) - 0(No drift) 7. Limb Ataxia (finger/nose \T\ heel/catherine - test with eyes open) - 0(Absent) 8. Sensory Loss (pinprick arms/legs/face) - 0(Normal) 9. Best Language: Aphasia (description/naming/reading) - 0(No aphasia) Initials: godfrey Signatures: Dispatcher [employer] EDPrincess Goodrich Diana, RN RN Mejia Whitley MD MD cha Oliver, Kathy, RN RN ko1 Abundio uW RN as6 Corrections: (The following items were deleted from the chart) 17:43 16:32 godfrey george
--- NOTE | 2022-09-02 16:33 | ER ---
Nurse's Notes [facility] Name: Maisha Leo Age: 62 yrs Sex: Female : 1960 Arrival Date: 09/02/2022 Time: 12:16 Bed 8 Private MD: Diagnosis: Repeated falls;Weakness;Altered mental status, unspecified;Tobacco use;Tobacco abuse counseling;Hypokalemia Presentation: 09/02 12:17 Chief complaint: EMS states: patients neighbor called stating the patient had been ko1 lethargic/incoherent since Friday but refused to let them call EMS. They called today because the patient was found in the floor, the patient continued to refuse to come to ER but EMS convinced her to. Negative stroke symptoms. BG 68. Patient is only complaining of chronic back pain and requesting pain meds. Coronavirus screen: At this time, the client does not indicate any symptoms associated with coronavirus-19. Ebola Screen: No symptoms or risks identified at this time. Initial Sepsis Screen: Does the patient meet any 2 criteria? No. Patient's initial sepsis screen is negative. Does the patient have a suspected source of infection? No. Patient's initial sepsis screen is negative. Risk Assessment: Do you want to hurt yourself or someone else? Patient reports no desire to harm self or others. Onset of symptoms is unknown. Care prior to arrival: Glucose check: 68. Mechanism of Injury: Fall from standing position. 12:17 Method Of Arrival: EMS: [facility] ko1 12:17 Acuity: ARTURO 3 ko1 Triage Assessment: 12:20 General: Appears in no apparent distress. Behavior is calm, cooperative, appropriate ko1 for age. Pain: Complains of pain in back. Historical: - Allergies: 12:20 PENICILLINS; ko1 - PMHx: 12:20 ADD/ADHD; Bipolar disorder; Cerebrovascular accident; Cirrhosis; COPD; CVA; Left sided ko1 weakness; Fibromyalgia; Hypothyroidism; Hypertension; Myocardial infarction; Seizures; - PSHx: 12:20 right big toe; ko1 - Immunization history:: Adult Immunizations unknown. - Social history:: Smoking status: Patient reports the use of cigarette tobacco products, denies chronic smoking, but will smoke occasionally. - Family history:: not pertinent. Screenin:20 [facility] ED Fall Risk Assessment (Adult) History of falling in the last 3 months, bp including since admission Yes- fall prone (multiple falls) (3 pts) Confusion or Disorientation No (0 pts) Intoxicated or Sedated Yes (3 pts) Impaired Gait Yes (1 pt) Mobility Assist Device Used Yes (1 pt) Altered Elimination No (0 pt) Score/Fall Risk Level 3 or more points = High Risk Oriented to surroundings, Maintained a safe environment, Educated pt \T\ family on fall prevention, incl call for assistance when getting out of bed, Hourly rounding (assess needs \T\ fall precautionary measures) done, Used ambulatory aids as needed (educated on \T\ assisted with). Abuse screen: Denies threats or abuse. Denies injuries from another. Nutritional screening: No deficits noted. Tuberculosis screening: No symptoms or risk factors identified. Assessment: 12:20 General: SEE TRIAGE NOTE. bp Vital Signs: 12:17 BP 132 / 90; Pulse 74; Resp 18; Temp 97(O); Pulse Ox 98% ; Weight 72.57 kg; Height 5 ko1 ft. 5 in. ; Pain 10/10; 13:00 BP 137 / 92; Pulse 77; Resp 16; Pulse Ox 96% ; ko1 13:30 BP 136 / 92; Pulse 82; Resp 16; Pulse Ox 98% ; ko1 14:00 BP 142 / 98; Pulse 83; Resp 16; Pulse Ox 98% ; ko1 16:45 BP 129 / 87; Pulse 85; Resp 18; Pulse Ox 99% ; ko1 18:00 BP 150 / 99; Pulse 90; Resp 14; Pulse Ox 92% ; bp 20:33 BP 131 / 95; Pulse 95; Resp 18 S; Pulse Ox 93% on R/A; as6 12:17 Body Mass Index 26.63 (72.57 kg, 165.1 cm) ko1 12:17 Pain Scale: Adult ko1 NIH Stroke Scale Scores: 17:59 NIHSS Score: 0 [facility] ED Course: 12:16 Patient arrived in ED. ko1 12:17 Mejia Juares MD is Attending Physician. [facility] 12:20 Triage completed. ko1 12:20 Arm band placed on right wrist. Patient placed in an exam room, on a stretcher, on ko1 playground monitor, on pulse oximetry, Patient notified of wait time. 12:20 Patient has correct armband on for positive identification. Bed in low position. Call bp light in reach. Side rails up X2. 12:21 Pranav Jensen, RN is Primary Nurse. bp 12:30 Client placed on continuous cardiac and pulse oximetry monitoring. NIBP monitoring ko1 applied. bus driver/monitor on. Door closed. Noise minimized. Lights dimmed. Warm blanket given. 12:55 Inserted saline lock: 22 gauge in right antecubital area, using aseptic technique. bp Blood collected. 13:03 CT Traumagram (Head C Spine CAP wo con) In Process Unspecified. EDMS 13:57 ETOH Level Sent. ko1 13:57 Acetaminophen Sent. ko1 13:58 Asprin Sent. ko1 13:58 Lactate w/ 2H reflex if indic. Sent. ko1 13:58 Blood Culture Adult (2) Sent. ko1 13:58 COVID-19/FLU A+B Sent. ko1 13:58 CK Sent. ko1 13:58 Lipase Sent. ko1 14:30 No provider procedures requiring assistance completed. ko1 14:32 XRAY Chest (1 view) In Process Unspecified. EDMS 16:31 Speedy Mix is Hospitalizing Provider. godfrey 20:39 Patient admitted, IV remains in place. as6 Administered Medications: 12:44 Drug: Famotidine IVP 20 mg Route: IVP; Site: right antecubital; ko1 20:38 Follow up: Response: No adverse reaction as6 12:44 Drug: NS 0.9% IV 1000 ml Route: IV; Rate: 1 bolus; Site: right antecubital; ko1 20:38 Follow up: Response: No adverse reaction; IV Status: Completed infusion; IV Intake: as6 1000ml 12:45 Drug: Rocephin IV 1 grams Route: IV; Rate: per protocol; Site: right antecubital; ko1 20:37 Follow up: Response: No adverse reaction; IV Status: Completed infusion; IV Intake: [id number] 16:08 Drug: Potassium PO Effervescent Tablet 50 mEq Route: PO; ko1 20:38 Follow up: Response: No adverse reaction as6 16:55 Drug: MethylPrednisoLONE IVP 125 mg Route: IVP; Site: right antecubital; ko1 20:39 Follow up: Response: No adverse reaction as6 16:56 Drug: Levalbuterol Inhalation 1.25 mg Route: Inhalation; ko1 20:38 Follow up: Response: No adverse reaction as6 16:56 Drug: Ipratropium Inhalation Aerosol 0.5 mg Route: Inhalation; ko1 20:38 Follow up: Response: No adverse reaction as6 18:16 Drug: Aspirin PO 81 mg Route: PO; ko1 20:39 Follow up: Response: No adverse reaction as6 Medication: 20:33 VIS not applicable for this client. as6 Intake: 20:37 IV: 50ml; Total: 50ml. as6 20:38 IV: 1000ml; Total: 1050ml. as6 Outcome: 16:32 Decision to Hospitalize by Provider. godfrey 20:39 Admitted to Tele accompanied by tech, via stretcher, room 402, with chart, Report as6 called to Klaus ERVIN 20:39 Condition: stable 20:39 Instructed on the need for admit. 20:39 Patient left the ED. as6 NIH Stroke Scale - NIH Stroke Score Date: 09/02/2022 Time: 17:59 Total Score = 0 10. Dysarthria (speech clarity - read or repeat words) - 0(Normal) 11. Extinction and Inattention (visual/tactile/auditory/spatial/personal) - 0(No abnormality) 1a. Level of Consciousness (LOC) - 0(Alert) 1b. Level of Consciousness (LOC) (Month \T\ Age) - 0(Both) 1c. LOC Commands (Open \T\ Closes Eyes/Barrel Handler) - 0(Both) 2. Best Gaze (Lateral Gaze Paresis) - 0(Normal) 3. Visual Field Loss - 0(No visual loss) 4. Facial Palsy - 0(Normal) 5a. Left Arm: Motor (10-second hold) - 0(No drift) 5b. Right Arm: Motor (10-second hold) - 0(No drift) 6a. Left Leg: Motor (5-second hold - always test supine) - 0(No drift) 6b. Right Leg: Motor (5-second hold - always test supine) - 0(No drift) 7. Limb Ataxia (finger/nose \T\ heel/catherine - test with eyes open) - 0(Absent) 8. Sensory Loss (pinprick arms/legs/face) - 0(Normal) 9. Best Language: Aphasia (description/naming/reading) - 0(No aphasia) Initials: godfrey Signatures: Dispatcher [employer] Mejia Siddiqui MD MD cha Peltier, Brian, RN RN bp Abundio Wu, AZIZA RN as6 Fouzia Garcia RN RN ko1
[2022-09-02] MEDS ORDERED: METHYLPREDNISOLONE 125 MG INJ ONE (16:56)
[2022-09-02] MEDS ORDERED: LEVALBUTEROL 1.25 MG/3 ML NEB ONE (16:56)
[2022-09-02] MEDS ORDERED: IPRATROPIUM BROM 0.5MG/2.5ML ONE (16:57)
[2022-09-02] MEDS ORDERED: ACETAMINOPHEN 325 MG TABLET PO PRN (17:41)
[2022-09-02] MEDS ORDERED: ONDANSETRON 4 MG/2 ML VIAL IV PRN (17:43)
--- NOTE | 2022-09-02 17:45 | P.HP ---
Certification for Inpatient Patient admitted to: Inpatient With expected LOS: >2 Midnights Patient will require the following post-hospital care: None Practitioner: I am a practitioner with admitting privileges, knowledge of patient current condition, hospital course, and medical plan of care. Services: Services provided to patient in accordance with Admission requirements found in Title 42 Section 412.3 of the Code of Federal Regulations Patient History Date of Service: 09/02/22 Reason for admission: AMS, Fall, Generalized weakness History of Present Illness: Patient is a 62-year-old female with a past medical history significant for CVA, liver cirrhosis, COPD, hypothyroidism, [place], seizures, hypertension, bipolar disorder who presents with complaint of altered mental status, generalized weakness and falls. Patient reported that she fell this morning and hit her head. Patient was found on the floor by her neighbor and patient was noted to be confused. Patient reported that she has been experiencing generalized weakness in the last 4 days. Patient reports chronic bilateral lower extremity pain. Patient reported that she follows up with her vascular surgeon outpatient. Patient reported that she has been unable to walk after the fall. Patient also reports right upper quadrant pain, rated as 10/10 in severity and described as aching in quality. Patient reported associated signs and symptoms of generalized malaise, urinary frequency and chills. Patient denies any other signs or symptoms. Symptoms are aggravated or relieved by nothing. Patient was brought to the hospital for medical evaluation. Of note, patient noted to have intermittent confusion although alert and oriented x3 Allergies Penicillins Allergy (Intermediate, Verified 04/18/19 23:29) Anaphylaxis Home Medications: Albuterol Sulfate [Proair Hfa] 1 puff IH TID PRN #1 hfa.aer.[id number] 05/03/19 Collagenase [Santyl Ointment*] 1 appl TOP DAILY #1 tube 05/03/19 Doxycycline Hyclate 100 mg PO BID #14 tablet 05/03/19 Gabapentin 400 mg PO TID #90 capsule 05/03/19 Levothyroxine [Synthroid*] 75 mcg PO [id number] #30 tab 05/03/19 Tramadol HCl [Ultram] 50 mg PO TID PRN #15 tablet 05/03/19 levETIRAcetam [Keppra] 500 mg PO BID #60 tablet 05/03/19 lisinopriL [Lisinopril] 5 mg PO DAILY #30 tablet 05/03/19 - Past Medical/Surgical History Diabetic: No -: Hypothyroidism -: HTN -: Anxiety -: Seizures -: HX [place] x2 -: HX CVA x2 -: Osteoarthritis -: Hepatitis C -: liver cirrhosis -: Geovanny's paralysis -: Neck Surgery -: Tubal Ligation - Family History Mother -: Heart disease, Diabetes Father -: Other (see notes) Notes: Alzeimers Brother -: Other (see notes) Notes: COPD, Bone Cancer, Back Surgery - Social History Smoking Status: Current every day smoker Counseled patient to stop smoking for: less than 10 minutes Smoking therapy provided: Yes Patient receptive to therapy: Yes Alcohol use: Yes CD- Drugs: No Caffeine use: Yes Place of Residence: Home Review of Systems General: Chills, Weakness, Malaise Eyes: Unremarkable ENT: Unremarkable Respiratory: Unremarkable Cardiovascular: Unremarkable Gastrointestinal: Abdominal Pain Genitourinary: Frequency Musculoskeletal: Leg Pain, Pedal edema Integumentary: Unremarkable Neurological: Weakness Lymphatics: Unremarkable Physical Examination - Physical Exam General: Alert, In no apparent distress, Oriented x3, Confused (intermittent confusion ) HEENT: Atraumatic, PERRLA, Mucous membr. moist/pink, EOMI, Sclerae nonicteric Neck: Supple, 2+ carotid pulse no bruit, No LAD, Without JVD or thyroid abnormality Respiratory: Clear to auscultation bilaterally, Normal air movement Cardiovascular: Regular rate/rhythm, Normal S1 S2, Edema Capillary refill: <2 Seconds Gastrointestinal: Normal bowel sounds, Non-distended, Tenderness Musculoskeletal: Tenderness Integumentary: No rashes, No significant lesion Neurological: Normal speech, Normal tone, Normal affect, Abnormal gait Lymphatics: No axilla or inguinal lymphadenopathy - Studies Laboratory Data (last 24 hrs) 09/02/22 13:54: Sodium 143, Potassium 3.1 L, BUN 19 H, Creatinine 0.79, Glucose 91, Magnesium 2.2, Total Bilirubin 1.1 H, AST 48 H, ALT 41, Alkaline Phosphatase 89, Lipase 20 09/02/22 12:55: PT 13.1 H, INR 1.19 09/02/22 12:55: WBC 3.80 L, Hgb 15.3 H, Hct 45.0, Plt Count 161 Assessment and Plan - Plan --Acute encephalopathy. Patient noted with intermittent confusion. CT head does not indicate any acute intracranial abnormality. Encephalopathy likely secondary to hyperammonemia\uti. Continue supportive care. --Liver cirrhosis. Pt has a Hx of Hepatitis C. Ammonia level is elevated--145. Patient placed on lactulose. Will reassess ammonia levels in a.m. --Abdominal pain. CT abdomen positive for liver cirrhosis otherwise unremarkable for any acute intra-abdominal abnormality. We will manage pain with current pain medication regimen. --Generalized weakness. CT head unremarkable. MRI brain pending for further evaluation. PT eval and treat. Fall precautions. -- UTI POA. Patient placed on antibiotics. Urine cultures pending. -- History of CVA\KS. Continue aspirin. --COPD stable. Continue home medication. --History of seizures. Continue home medication. Seizure precautions. --Hypothyroidism. Continue Synthroid. -- Hypertension. Poorly controlled. Continue home medications and hydralazine as needed. --Nicotine dependence. Patient counseled on tobacco cessation and placed on nicotine patch. --Bipolar disorder\anxiety disorder. Stable. Continue supportive care. --Chronic bilateral lower extremity pain. Patient reported that she follows up with an outpatient vascular surgeon for mgt. We will manage pain with current pain medication regimen. --CKD 2. Stable. Will continue to monitor renal functions. --DVT prophylaxis with Lovenox subQ. Discharge Plan: Home Plan to discharge in: Greater than 2 days - Advance Directives Does patient have a Living Will: No Does patient have a Durable POA for Healthcare: Yes - Code Status/Comfort Care Code Status Assessed: Yes Physician Review: Patient Assessed, Agree with Above Assessment and Plan Critical Care: No
[2022-09-02 19:31] LABS: Phosphorus 2.9 mg/dL (2.5-4.9)
[2022-09-02 19:32] LABS: Thyroid Stimulating Hormone 12.3 uIU/mL (0.358-3.740)
--- NOTE | 2022-09-02 20:23 | P.PN ---
Date of Service: 09/03/22 Subjective: Feels okay this morning tolerating diet, no BM reported since 08/31 Burning sensation when urinating reported ~week reports h/o taking lactulose but stopped on her own a long time ago due to diarrhea/side effects ROS: 10 point ROS as noted above, otherwise negative Physical Exam: Gen: Alert, NAD, AOx3, generalized weakness HEENT: normal conjunctiva, sclera anicteric CV: regular rate & rhythm, trace b/l edema Pulm: non-labored respirations on room air, clear bilaterally Abd: soft, non-tender, non-distended Neuro: normal speech, normal affect, moves all extremities Vitals Reviewed Problem List: Acute encephalopathy, multifactorial - hepatic encephalopathy, and possibly from UTI Liver Cirrhosis UTI History of CVA/[place] COPD Seizures Hypothyroidism Hypertension Nicotine dependence Bipolar Disorder/anxiety CKD2 Acute encephalopathy Livir Cirrhosis CT head does not indicate any acute intracranial abnormality. Encephalopathy likely secondary to hyperammonemia\UTI Ammonia level elevated 145 09/02, started lactulose 09/02 PM Ammonia in AM 09/[address] abdomen positive for liver cirrhosis otherwise unremarkable GI consult continue pain medication as needed MRI brain - no acute infarct detected; marked progression of T2/Flair, likely chronic small vessel ischemic changes neuro consulted PT eval UTI continue IV antibiotics for UTI Urine cultures pending Continue to monitor renal function History of CVA/[place] COPD Seizures Hypothyroidism Hypertension continue home medications continue aspirin and synthroid Nicotine dependence Patient counseled on tobacco cessation and placed on nicotine patch VTE: Lovenox subQ Code: Full Dispo: Home ~48 hours
[2022-09-02] MEDS: HYDROCODONE/APAP 10/325 TAB PO PRN (21:36)
[2022-09-02] MEDS: ENOXAPARIN 40 MG/0.4 ML SQ SCH (21:37)
[2022-09-02 22:36] LABS: Specific Gravity 1.018 (1.005-1.030); Urine Bacteria 20-50 /HPF (<20); Urine Bilirubin NEGATIVE (Negative); Urine Blood Negative (Negative); Urine Clarity Turbid (Clear); Urine Color Light-Orange (Yellow); Urine Glucose NEGATIVE (Negative); Urine Protein TRACE (Negative); Urine RBC <5 /HPF (None Seen); Urine Triple Phosphate Crystal Few /HPF (None Seen); Urine Urobilinogen 1+ (Normal)
[2022-09-02 22:39] LABS: Barbiturates NEGATIVE (NEGATIVE); Benzodiazepines NEGATIVE (NEGATIVE); Cocaine POSITIVE (NEGATIVE); METHAMPHETAM NEGATIVE (NEGATIVE); Methadone NEGATIVE (NEGATIVE); Opiates NEGATIVE (NEGATIVE); Phencyclidine NEGATIVE (NEGATIVE); THC Cannibis NEGATIVE (NEGATIVE)
[2022-09-02] MEDS ORDERED: HYDRALAZINE HCL 20 MG/ML VIAL IV PRN (22:56)
[2022-09-02] MEDS: LACTULOSE 20 GM/30 ML UCUP PO SCH (23:25)
[2022-09-03 06:17] LABS: Absolute Lymphocytes (CBC) 0.8 K/uL (0.7-4.9); Hematocrit 42.1 % (36.0-45.0); Lymphocytes % 23.7 % (15.3-44.8); MPV 8.5 fL (7.6-11.3); RBC Red Blood Cell Count 4.68 M/uL (3.86-4.86)
[2022-09-03 06:36] LABS: Albumin 2.7 g/dL (3.4-5.0); Bilirubin Total 0.8 mg/dL (0.2-1.0); Potassium 3.2 mEq/L (3.5-5.1); Protein, Total 7.6 g/dL (6.4-8.2)
[2022-09-03] MEDS: HYDROCODONE/APAP 10/325 TAB PO PRN ×2 (07:34→17:44)
[2022-09-03] MEDS: ASPIRIN 81 MG CHEWABLE TABLET PO SCH (08:15)
[2022-09-03] MEDS: NICOTINE 14 MG/PAT TD SCH (08:15)
[2022-09-03] MEDS: ENOXAPARIN 40 MG/0.4 ML SQ SCH (08:17)
[2022-09-03] MEDS: CEFTRIAXONE 1,000 MG in NA CHLORIDE 0.9% 50 ML IVPB SCH (08:17)
[2022-09-03] MEDS: LACTULOSE 20 GM/30 ML UCUP PO SCH ×2 (08:29→21:32)
[2022-09-03] MEDS ORDERED: POTASSIUM 25 MEQ EFFERV TAB PO ONE (09:00)
[2022-09-03] MEDS ORDERED: LORazepam 2 MG/ML VIAL IV ONE (09:05)
--- NOTE | 2022-09-03 10:07 | RAD REPORT ---
EXAM DESCRIPTION: MRI - Brain Wo Cont - 09/03/2022 9:47 am CLINICAL HISTORY: DECLINING STATE COMPARISON: Brain Wo Cont dated 11/17/2017; Head C Spine Cap Wo Con dated 09/02/2022 TECHNIQUE: Sagittal T1-weighted images were obtained along with PD/heavily T2-weighted and T2-FLAIR images. Axial DWI and ADC mapping sequences were also obtained along with coronal heavily T2-weighted images were obtained. FINDINGS: No intracranial hemorrhage, mass or acute infarction. There is no edema or shift of midlin e structures. No extra-axial fluid collections. Signal voids are seen as a normal finding in the audra r intracranial vessels. Severe T2/FLAIR hyperintense signal within the centrum semiovale and back r adiata. There has been marked progression compared with 11/13/2017. Trace mastoid fluid. Paranasal sinuses are well aerated. IMPRESSION: Compared with 11/17/2017, marked progression of T2/FLAIR hyperintensity within the subco rtical and deep white matter that is typically attributable to chronic small vessel ischemic changes. No acute infarct identified.
--- NOTE | 2022-09-03 12:28 | EKG ---
Test Date: 2022-09-02 Test Time: 13:48:48 Electroplater Apprentice: MANJU MEASUREMENT RESULTS: Intervals: Rate: 78 DC: 166 QRSD: 98 QT: 438 QTc: 499 Makinen: P: 66 DC: 166 QRS: -7 T: 67 INTERPRETIVE STATEMENTS: Normal sinus rhythm Low voltage QRS Septal infarct, age undetermined Abnormal ECG Compared to ECG 01/22/2022 20:35:01 Low QRS voltage now present Myocardial infarct finding now present T-wave abnormality no longer present Prolonged QT interval no longer present Electronically Signed On 09-03-22 12:23:49 CDT by Andrew Upton
[2022-09-03] MEDS: Rifaximin 550 MG Tab PO SCH ×2 (12:40→21:00)
[2022-09-03 18:05] VITALS: BMI 28.3
[2022-09-03 19:35] LABS: Albumin 2.8 g/dL (3.4-5.0); Bilirubin Total 0.6 mg/dL (0.2-1.0); Potassium 3.6 mEq/L (3.5-5.1); Protein, Total 7.6 g/dL (6.4-8.2)
[2022-09-03] MEDS ORDERED: POTASSIUM CL SA 10 MEQ TAB PO ONE (20:43)
[2022-09-04 06:07] LABS: Absolute Lymphocytes (CBC) 1.5 K/uL (0.7-4.9); Hematocrit 39.7 % (36.0-45.0); Lymphocytes % 28.1 % (15.3-44.8); MCV 91.4 fL (80-100); MPV 8.6 fL (7.6-11.3); RBC Red Blood Cell Count 4.34 M/uL (3.86-4.86)
[2022-09-04 06:19] LABS: Albumin 2.5 g/dL (3.4-5.0); Bilirubin Total 0.5 mg/dL (0.2-1.0); Magnesium 2.1 mg/dL (1.6-2.4); Potassium 3.8 mEq/L (3.5-5.1); Protein, Total 6.7 g/dL (6.4-8.2)
--- NOTE | 2022-09-04 06:54 | P.PN ---
Date of Service: 09/04/22 Subjective: Feeling better this morning tolerating diet, no BM reported overnight had trouble ambulating few steps yesterday, poor standing balance, per PT ROS: 10 point ROS as noted above, otherwise negative Physical Exam: Gen: Alert, NAD, AOx3, generalized weakness HEENT: normal conjunctiva, sclera anicteric CV: regular rate & rhythm, trace b/l edema Pulm: non-labored respirations on room air, clear bilaterally Abd: soft, non-tender, non-distended Neuro: normal speech, normal affect, moves all extremities Vitals Reviewed Problem List: Acute encephalopathy, multifactorial - hepatic encephalopathy, and possibly from UTI Liver Cirrhosis UTI History of CVA/[place] COPD Seizures Hypothyroidism Hypertension Nicotine dependence Bipolar Disorder/anxiety CKD2 Acute encephalopathy Livir Cirrhosis CT head does not indicate any acute intracranial abnormality. MRI brain - no acute infarct detected; marked progression of T2/Flair, likely chronic small vessel ischemic changes neuro consulted Encephalopathy likely secondary to hyperammonemia\UTI Ammonia level elevated 145 09/02, started lactulose 09/02 PM; Ammonia in AM 09/[address] abdomen positive for liver cirrhosis otherwise unremarkable GI consulted - rifaximin continue pain medication as needed PT evaluation - reports pt will always be a fall risk due to multiple factors Pt. claims she lives in a bottom floor apt. she has a provider 5 days/wk. and her lady friend upstairs helps her. She ambulates w/ a walker, also has a cane, and that she will be getting a motorized scooter on the soon pt claims has home oxygen setup but does not use regularly UTI reports symptoms over last week h/o frequent UTIs in past continue IV antibiotics for UTI Urine cultures <10,000 mixed starr Continue to monitor renal function History of CVA/HI COPD Seizures Hypothyroidism Hypertension continue home medications continue aspirin and synthroid Nicotine dependence Patient counseled on tobacco cessation and placed on nicotine patch VTE: Lovenox subQ Code: Full Dispo: possibly Home ~48 hours update son on 09/04, out of town, will be back morning 09/06
[2022-09-04] MEDS: LACTULOSE 20 GM/30 ML UCUP PO SCH ×2 (08:08→21:33)
[2022-09-04] MEDS: ASPIRIN 81 MG CHEWABLE TABLET PO SCH (08:11)
[2022-09-04] MEDS: ENOXAPARIN 40 MG/0.4 ML SQ SCH (08:12)
[2022-09-04] MEDS: NICOTINE 14 MG/PAT TD SCH (08:13)
[2022-09-04] MEDS: CEFTRIAXONE 1,000 MG in NA CHLORIDE 0.9% 50 ML IVPB SCH (08:13)
[2022-09-04] MEDS ORDERED: POTASSIUM CL SA 10 MEQ TAB PO ONE (09:00)
[2022-09-04] MEDS: Rifaximin 550 MG Tab PO SCH ×2 (10:46→21:33)
[2022-09-04] MEDS: HYDROCODONE/APAP 10/325 TAB PO PRN ×3 (10:47→23:01)
[2022-09-04] MEDS: THIAMINE 200 MG/2 ML INJ IVP SCH (21:33)
[2022-09-05 04:15] LABS: Potassium 3.7 mEq/L (3.5-5.1)
--- NOTE | 2022-09-05 07:18 | P.PN ---
Date of Service: 09/05/22 Subjective: Feeling better this morning tolerating diet, no BM reported improved walking with PT assistance yesterday; balance issues persist ROS: 10 point ROS as noted above, otherwise negative Physical Exam: Gen: Alert, NAD, AOx3, generalized weakness HEENT: normal conjunctiva, sclera anicteric CV: regular rate & rhythm, trace b/l edema Pulm: non-labored respirations on room air, clear bilaterally Abd: soft, non-tender, non-distended Neuro: normal speech, normal affect, moves all extremities Vitals Reviewed Problem List: Acute encephalopathy, multifactorial - hepatic encephalopathy, and possibly from UTI Liver Cirrhosis UTI History of CVA/[place] COPD Seizures Hypothyroidism Hypertension Nicotine dependence Bipolar Disorder/anxiety CKD2 Acute encephalopathy Liver Cirrhosis CT head: no acute intracranial abnormality. MRI brain - no acute infarct detected; marked progression of T2/Flair, likely chronic small vessel ischemic changes neuro consulted Encephalopathy likely secondary to hyperammonemia\UTI; [id number] Ammonia level elevated 145 09/02, started lactulose 09/02 PM; Ammonia in AM 09/[address] abdomen positive for liver cirrhosis otherwise unremarkable GI consulted - rifaximin continue pain medication as needed PT evaluation - reports pt will always be a fall risk due to multiple factors pt. claims she lives in a bottom floor apt. she has a provider 5 days/wk. and her lady friend upstairs helps her. She ambulates w/ a walker, also has a cane, and that she will be getting a motorized scooter on the soon pt claims has home oxygen setup but does not use regularly UTI reports symptoms over last week h/o frequent UTIs in past continue IV antibiotics for UTI Urine cultures <10,000 mixed starr Continue to monitor renal function History of CVA/[place] COPD Seizures Hypothyroidism Hypertension continue home medications continue aspirin and synthroid Nicotine dependence Patient counseled on tobacco cessation and placed on nicotine patch VTE: Lovenox subQ Code: Full Dispo: possibly Home with home health~48 hours updated son on 09/04, out of town, will be back morning 09/06
[2022-09-05] MEDS ORDERED: POTASSIUM CL SA 10 MEQ TAB PO ONE (09:00)
[2022-09-05] MEDS: Rifaximin 550 MG Tab PO SCH ×2 (09:20→21:08)
[2022-09-05] MEDS: THIAMINE 200 MG/2 ML INJ IVP SCH ×2 (09:20→21:08)
[2022-09-05] MEDS: LACTULOSE 20 GM/30 ML UCUP PO SCH ×2 (09:20→21:08)
[2022-09-05] MEDS: NICOTINE 14 MG/PAT TD SCH (09:21)
[2022-09-05] MEDS: HYDROCODONE/APAP 10/325 TAB PO PRN ×2 (09:22→21:08)
[2022-09-05] MEDS: ASPIRIN 81 MG CHEWABLE TABLET PO SCH (09:23)
[2022-09-05] MEDS: CEFTRIAXONE 1,000 MG in NA CHLORIDE 0.9% 50 ML IVPB SCH (09:23)
[2022-09-05] MEDS: ENOXAPARIN 40 MG/0.4 ML SQ SCH (09:24)
[2022-09-06 05:40] LABS: Albumin 2.6 g/dL (3.4-5.0); Bilirubin Total 0.5 mg/dL (0.2-1.0); Potassium 3.8 mEq/L (3.5-5.1)
--- NOTE | 2022-09-06 07:22 | P.PN ---
Date of Service: 09/06/22 Subjective: feeling slightly better today tolerating diet; Had a "good" BM yesterday did some seated exercises with PT yesterday, but was too tired to walk ROS: 10 point ROS as noted above, otherwise negative Physical Exam: Gen: Alert, NAD, AOx3, generalized weakness HEENT: normal conjunctiva, sclera anicteric CV: regular rate & rhythm, trace b/l edema Pulm: non-labored respirations on room air, clear bilaterally Abd: soft, non-tender, non-distended Neuro: normal speech, normal affect, moves all extremities Vitals Reviewed Problem List: Acute encephalopathy, multifactorial - hepatic encephalopathy, and possibly from UTI Liver Cirrhosis UTI History of CVA/[place] COPD Seizures Hypothyroidism Hypertension Nicotine dependence Bipolar Disorder/anxiety CKD2 Acute encephalopathy Liver Cirrhosis CT head: no acute intracranial abnormality. MRI brain - no acute infarct detected; marked progression of T2/Flair, likely chronic small vessel ischemic changes neuro consulted Encephalopathy likely secondary to hyperammonemia\\UTI; improved Ammonia level elevated 145 09/02, started lactulose 09/02 PM; 09/03 down to 47 GI consulted - rifaximin continue pain medication as needed PT evaluation - reports pt will always be a fall risk due to multiple factors pt. claims she lives in a bottom floor apt. she has a provider 5 days/wk. and her lady friend upstairs helps her. She ambulates w/ a walker, also has a cane, and that she will be getting a motorized scooter on the soon pt claims has home oxygen setup but does not use regularly UTI reports symptoms over last week h/o frequent UTIs in past dc IV antibiotics for UTI Urine cultures <10,000 mixed starr Continue to monitor renal function History of CVA/OR COPD Seizures Hypothyroidism Hypertension continue home medications continue aspirin and synthroid Nicotine dependence Patient counseled on tobacco cessation and placed on nicotine patch VTE: Lovenox subQ Code: Full Dispo: possibly Home with home health~48 hours updated son on 09/04, out of town, will be back morning 09/06
[2022-09-06] MEDS: LACTULOSE 20 GM/30 ML UCUP PO SCH ×3 (08:34→20:36)
[2022-09-06] MEDS: NICOTINE 14 MG/PAT TD SCH (08:35)
[2022-09-06] MEDS: CEFTRIAXONE 1,000 MG in NA CHLORIDE 0.9% 50 ML IVPB SCH (08:35)
[2022-09-06] MEDS: ASPIRIN 81 MG CHEWABLE TABLET PO SCH (08:35)
[2022-09-06] MEDS: ENOXAPARIN 40 MG/0.4 ML SQ SCH (08:36)
[2022-09-06] MEDS: THIAMINE 200 MG/2 ML INJ IVP SCH ×2 (08:36→20:36)
[2022-09-06] MEDS: Rifaximin 550 MG Tab PO SCH (08:37)
[2022-09-06] MEDS ORDERED: POTASSIUM CL SA 10 MEQ TAB PO ONE (09:00)
[2022-09-06 15:15] VITALS: O2SAT 98
[2022-09-06] MEDS: HYDROCODONE/APAP 10/325 TAB PO PRN (20:36)
[2022-09-07 04:57] LABS: Potassium 3.8 mEq/L (3.5-5.1)
--- NOTE | 2022-09-07 07:17 | P.PN ---
Date of Service: 09/07/22 Subjective: rested well overnight wants to go home with [id number] ROS: 10 point ROS as noted above, otherwise negative Physical Exam: Gen: Alert, NAD, AOx3, generalized weakness HEENT: normal conjunctiva, sclera anicteric CV: regular rate & rhythm, trace b/l edema Pulm: non-labored respirations on room air, clear bilaterally Abd: soft, non-tender, non-distended Neuro: normal speech, normal affect, moves all extremities Vitals Reviewed Problem List: Acute encephalopathy, multifactorial - hepatic encephalopathy, and possibly from UTI Liver Cirrhosis UTI History of CVA/[place] COPD Seizures Hypothyroidism Hypertension Nicotine dependence Bipolar Disorder/anxiety CKD2 Acute encephalopathy Liver Cirrhosis CT head: no acute intracranial abnormality. MRI brain - no acute infarct detected; marked progression of T2/Flair, likely chronic small vessel ischemic changes neuro consulted Encephalopathy likely secondary to hyperammonemia\UTI; improved Ammonia level elevated 145 09/02, started lactulose 09/02 PM; 09/03 down to 47 GI consulted - rifaximin continue pain medication as needed PT evaluation - reports pt will always be a fall risk due to multiple factors pt. claims she lives in a bottom floor apt. she has a provider 5 days/wk. and her lady friend upstairs helps her. She ambulates w/ a walker, also has a cane, and that she will be getting a motorized scooter on the soon pt claims has home oxygen setup but does not use regularly pt [id number] came by 4/ AM, states that she is aware pt will need monitoring 24/7 with walking and will be able to help watch her UTI reports symptoms over last week h/o frequent UTIs in past dc IV antibiotics for UTI Urine cultures <10,000 mixed starr Continue to monitor renal function History of CVA/ID COPD Seizures Hypothyroidism Hypertension continue home medications continue aspirin and synthroid Nicotine dependence Patient counseled on tobacco cessation and placed on nicotine patch VTE: Lovenox subQ Code: Full Dispo: possibly Home with home health~48 hours updated son on 09/04, [id number] showed up 09/07
[2022-09-07] MEDS: LACTULOSE 20 GM/30 ML UCUP PO SCH (08:13)
[2022-09-07] MEDS: NICOTINE 14 MG/PAT TD SCH (08:14)
[2022-09-07] MEDS: THIAMINE 200 MG/2 ML INJ IVP SCH (08:16)
[2022-09-07] MEDS: ENOXAPARIN 40 MG/0.4 ML SQ SCH (08:16)
[2022-09-07] MEDS: CEFTRIAXONE 1,000 MG in NA CHLORIDE 0.9% 50 ML IVPB SCH (08:16)
[2022-09-07] MEDS: ASPIRIN 81 MG CHEWABLE TABLET PO SCH (08:16)
[2022-09-07] MEDS ORDERED: POTASSIUM CL SA 10 MEQ TAB PO ONE (09:00)
[2022-09-07 10:07] VITALS: BP 119/82; TEMP 98.1
--- NOTE | 2022-09-07 11:56 | P.DS ---
Admission Date: 09/02/22 Discharge Date: 09/07/22 Disposition: DC HOME/HOME HEALTH CARE Discharge Condition: FAIR Reason for Admission: AMS, Fall, Generalized weakness Consultations: Gastrointestinal - Neurology - Dr. Ly Brief History of Present Illness: 62yo F, PMH: CVA, liver cirrhosis, COPD, hypothyroidism, [place], seizures, hypertension, bipolar disorder Patient presented to the ED with complaint of altered mental status, generalized weakness and falls. Patient reported that she fell this morning and hit her head. Patient was found on the floor by her neighbor and patient was noted to be confused. Patient reported that she has been experiencing generalized weakness in the last 4 days. Patient reports chronic bilateral lower extremity pain. Patient reported that she follows up with her vascular surgeon outpatient. Patient reported that she has been unable to walk after the fall. Patient also reports right upper quadrant pain, rated as 10/10 in severity and described as aching in quality. Patient reported associated signs and symptoms of generalized malaise, urinary frequency and chills. Patient denies any other signs or symptoms. Hospital Course: Problem List: Acute encephalopathy, multifactorial - hepatic encephalopathy, and possibly from UTI Liver Cirrhosis UTI History of CVA/[place] COPD Seizures Hypothyroidism Hypertension Nicotine dependence Bipolar Disorder/anxiety CKD2 Patient presented with confusion and fall. She was found to have hepatic encephalopathy with elevated ammonia levels. This improved after treatment with lactulose and she had good bowel movements. Dr. Cunningham was consulted. Recommended addition of Rifaximin. No evidence of infection and remained afebrile. Friend/family picking up patient and states will provide 24/7 supervision. Understands for now, patient can't ambulate without assistance due to fall risk. She is to use wheelchair and walker with assistance. Follow up with PCP within 1 week Follow up with GI in a few weeks. Titrate lactulose dose to have 1-2 good bowel movements a day. If no bowel movement in a day, take extra lactulose or additional laxative/enema. Physical Exam: Gen: Alert, NAD, AOx3, generalized weakness HEENT: normal conjunctiva, sclera anicteric CV: regular rate & rhythm, trace b/l edema Pulm: non-labored respirations on room air, clear bilaterally Abd: soft, non-tender, non-distended Neuro: normal speech, normal affect, moves all extremities Vital Signs/Physical Exam: Temp Pulse Resp BP Pulse Ox 98.1 F 90 16 119/82 94 09/07/22 08:00 09/07/22 08:00 09/07/22 08:00 09/07/22 08:00 09/07/22 08:00 Laboratory Data at Discharge: WBC 5.30 thou/uL (4.3-10.9) 09/04/22 05:46 Hgb 13.4 g/dL (12.0-15.0) D 09/04/22 05:46 Hct 39.7 % (36.0-45.0) 09/04/22 05:46 Plt Count 133 thou/uL (152-406) L 09/04/22 05:46 PT 13.1 SECONDS (9.5-12.5) H 09/02/22 12:55 INR 1.19 09/02/22 12:55 Sodium 136 mEq/L (136-145) 09/07/22 03:52 Potassium 3.8 mEq/L (3.5-5.1) 09/07/22 03:52 BUN 14 mg/dL (7-18) 09/07/22 03:52 Creatinine 0.62 mg/dL (0.55-1.02) 09/07/22 03:52 Glucose 96 mg/dL (74-106) 09/07/22 03:52 Phosphorus 2.9 mg/dL (2.5-4.9) 09/02/22 18:57 Magnesium 2.1 mg/dL (1.6-2.4) 09/04/22 05:46 Total Bilirubin 0.5 mg/dL (0.2-1.0) 09/06/22 03:54 AST 43 U/L (15-37) H 09/06/22 03:54 ALT 38 U/L (13-56) 09/06/22 03:54 Alkaline Phosphatase 90 U/L (45-117) 09/06/22 03:54 Triglycerides 76 mg/dL (<150) 09/02/22 18:57 Cholesterol 164 mg/dL (<200) 09/02/22 18:57 HDL Cholesterol 54 mg/dL (40-60) 09/02/22 18:57 Cholesterol/HDL Ratio 3.04 09/02/22 18:57 Lipase 20 U/L (13-75) 09/02/22 13:54 Home Medications: Albuterol Sulfate [Albuterol Sulfate 0.083% Neb Soln] 2.5 mg IH Q6HP PRN 09/03/22 Albuterol Sulfate [Ventolin Hfa] 1 puff IH Q6HP PRN 09/03/22 Amitriptyline [Elavil*] 50 mg PO BEDTIME 09/03/22 Amlodipine [Norvasc*] 10 mg PO DAILY 09/03/22 Gabapentin 600 mg PO TID 09/03/22 Ipratropium/Albuterol Sulfate [Combivent Respimat 20-100 Mcg] 4 gm IH BID 09/03 Levothyroxine [Synthroid*] 100 mcg PO [id number] 09/03/22 Lisinopril [Zestril] 40 mg PO DAILY 09/03/22 Meloxicam [Mobic*] 7.5 mg PO BID PRN 09/03/22 Oxybutynin Chloride [Oxybutynin Chloride ER] 5 mg PO DAILY 09/03/22 Trazodone HCl 100 mg PO BEDTIME 09/03/22 Lactulose [Cephulac*] 15 ml PO BID 30 Days #900 ml 09/07/22 Rifaximin [Xifaxan] 550 mg PO BID 30 Days #60 tab 09/07/22 New Medications: Lactulose [Cephulac*] 15 ml PO BID 30 Days #900 ml Rifaximin [Xifaxan] 550 mg PO BID 30 Days #60 tab Physician Discharge Instructions: Patient presented with confusion and fall. She was found to have hepatic encephalopathy with elevated ammonia levels. This improved after treatment with lactulose and she had good bowel movements. Dr. Cunningham was consulted. Recommended addition of Rifaximin. No evidence of infection and remained afebrile. Friend/family picking up patient and states will provide 24/ supervision. Understands for now, patient can't ambulate without assistance due to fall risk. She is to use wheelchair and walker with assistance. Follow up with PCP within 1 week Follow up with GI in a few weeks. Titrate lactulose dose to have 1-2 good bowel movements a day. If no bowel movement in a day, take extra lactulose or additional laxative/enema. Followup: Trevor Cunningham MD [ACTIVE - CAN ADMIT] - (call to set up an apointment for in a few weeks.) Acosta Tinoco FNP [OUTSIDE PHYSICIAN] - 1 Week (call for apointment ) Time spent managing pt's care (in minutes): 45
== END 2022-09-07 10:52 | disposition home health service (06) | DRG 442 ==
LOC: ER 12:04 → ERHOLD 17:39 → 4TH 19:44
PROVIDERS: ADMIT Internal Medicine; ATTEND Hospitalist
DX: K76.82 Hepatic encephalopathy (principal); I69.354 Hemiplegia and hemiparesis following cerebral infarction affecting left non-dominant side; E03.9 Hypothyroidism, unspecified; K74.60 Unspecified cirrhosis of liver; M79.7 Fibromyalgia; E87.6 Hypokalemia; F31.9 Bipolar disorder, unspecified; F41.9 Anxiety disorder, unspecified; J44.9 Chronic obstructive pulmonary disease, unspecified; M19.90 Unspecified osteoarthritis, unspecified site; I12.9 Hypertensive chronic kidney disease with stage 1 through stage 4 chronic kidney disease, or unspecified chronic kidney disease; N18.2 Chronic kidney disease, stage 2 (mild); F17.210 Nicotine dependence, cigarettes, uncomplicated; I25.2 Old myocardial infarction; R56.9 Unspecified convulsions; R29.6 Repeated falls; Z71.6 Tobacco abuse counseling; Z88.0 Allergy status to penicillin; Z98.51 Tubal ligation status; Z79.82 Long term (current) use of aspirin; Z79.890 Hormone replacement therapy; Z79.899 Other long term (current) drug therapy; Z20.822 Contact with and (suspected) exposure to COVID-19; W18.30XA Fall on same level, unspecified, initial encounter; Y93.01 Activity, walking, marching and hiking; Y92.019 Unspecified place in single-family (private) house as the place of occurrence of the external cause
CPT/HCPCS: 0240U; 36415; 70450; 70551; 71045; 71250; 72125; 80048; 80053; 80061; 80076; 80307; 81001; 82140; 82550; 83036; 83605; 83690; 83735; 83880; 84100; 84439; 84443; 84484; 85025; 85610; 87040; 87086; 87088; 93005; 96365; 96366; 96375; 97110; 97116; 97161; 97530; 99285; G0480; J0696; J1650; J2930; J3411; J7030; J7614; J7644

== ENCOUNTER 2022-10-27 03:11 | Observation (INO) | payer OTHER ==
--- OUTSIDE RECORDS SUMMARY | 2022-10-27 03:14 | XMS REPORT | Continuity of Care Document ---
:1960 Author Organization [facility] t Address [address] [facility] [address] [place] [address] Care Team Providers Name Role Phone AL AGUILAR Primary Care Physician Unavailable TAVO VIZCAINO Attending Clinician Unavailable Doctor Unassigned, [place] Attending Clinician Unavailable Al Aguilar MD Attending Clinician Payers Payer Name Policy Type Policy Number Effective Date Expiration Date Danielle assumption [facility] [id number] 2016 00:00:00 PLUS Problems Condition Condition Condition Status Onset Resolution Last Treating Co mments Source Name Details Category Date Date Treatment Clinician Date Essential Essential Disease Active Uni vers hypertensi hypertensi 7-26 it y of on on 00:00: [place] [address] Medical Branch Obesity Obesity Disease Active Univers (BMI (BMI 5-25 ity of 30-39.9) 30-39.9) 00:00: [place] [address] Medical Branch Osteomyeli Osteomyeli Disease Active U [place] tis tis 5-24 ity of 00:00: [address] Branch Positive Positive Disease Active 2015-06 Unive rs serology serology 1-15 ity of for for 00:00: [place] syphilis syphilis 00 Medica l Branch 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 1-15 it y of ve ve 00:00: [place] [address] Medical Branch Trichomoni Trichomoni Disease Active 2015-06 U [place] asis asis 0-26 ity of 00:00: [place] [address] Medical Branch Tobacco Tobacco Disease Active 2015-06 Univers use use 0-24 ity of 00:00: [place] [address] Medical Branch Arthralgia Arthralgia Disease Active 2015-06 U nivers of of 0-24 ity of multiple multiple 00:00: [place] joints joints 00 Medical Branch Seizure Seizure Disease Active 2015-06 Univers disorder disorder 0-24 ity of 00:00: [place] 00 Medical Branch Accelerate Accelerate Disease Active [...] spinal 00:00: [place] canal 00 [facility] Branch Bipolar I Bipolar I Disease Active Uni vers disorder, disorder, 8-31 ity of most most 00:00: [place] recent recent 00 Medical episode episode Branch (or (or current) current) depressed, depressed, severe, severe, without without mention of mention of psychotic psychotic behavior behavior HLD HLD Disease Active Univers (hyperlipi (hyperlipi it y of demia) demia) [facility] Hepatic Hepatic Disease Active Univers cirrhosis cirrhosis ity of [facility] Acquired Acquired Disease Active Unive rs hypothyroi hypothyroi it y of dism dism [facility] Allergies, Adverse Reactions, Alerts Allergy Allergy Status Severity Reaction(s) Onset Inactive Treating Comm ents Source Name Type Date Date Clinician Penicill Propensi Active Rash 2006- Univer s ins ty to 02-04 ity of adverse 00:00: [place] reaction 00 [facility] PENICILL Drug Active Rash Univers INS Class 8- ity of 00:00: [place] 00 [facility] Penicill Propensi Active Rash Univer s ins ty to 02-04 ity of adverse 00:00: [place] reaction 00 [facility] Social History Social Habit Start Date Stop Date Quantity Comments Source History of tobacco Cigarette Smoker University of use [facility] Alcohol intake 2019-05-22 2019-05-22 .86 /d University of 00:00:00 00:00:00 [facility] Tobacco use and 2015-08-01 2015-08-01 Smokeless Universit y of exposure 00:00:00 00:00:00 tobacco non-user [facility] Cigarettes smoked 2015-08-01 2015-08-01 Univers ity of current (pack per 00:00:00 00:00:00 [facility] ) - Reported Branch Cigarette 2015-08-01 2015-08-01 University of pack-years 00:00:00 00:00:00 [facility] Tobacco Comment 2014-12-26 2014-12-26 smokes 6 cig/day Uni versity of 00:00:00 00:00:00 [facility] Sex [birth year] At [birth year] Universit y of 00:00:00 00:00:00 [facility] Smoking Status Start Date Stop Date Source Smokes tobacco daily 2015-08-01 00:00:00 Univers ity of [facility] Medications Ordered Filled Start Stop Current Ordering Indication Dosage Frequency Signature Comments Components Source Medication Medication Date Date Medication? Clinician (SIG) Name Name gabapentin 2018-06 Yes [id number] 400mg Take 1 Univers (NEURONTIN) 2-14 capsule by it y of 400 mg 00:00: mouth 3 [place] capsule 00 (three) Medical [facility] daily. cyclobenzap 2018-06 Yes [id number] 10mg Take 1 Univers rine 10 mg 2-14 tablet by ity of tablet 00:00: mouth 3 [place] 00 (three) Medical times [place] daily. amLODIPine Yes [id number] 5mg Take 1 U nivers 5 mg tablet 7-26 tablet by ity of 00:00: mouth [place] 00 daily. Medical Branch cyclobenzap Yes [id number] 10mg Take 1 Univers rine 10 mg 7-26 tablet by ity of tablet 00:00: mouth 3 (three) Medical times Branch daily as needed for Muscle Spasms. gabapentin 2019- Yes [id number] 400mg Take 1 Univers 400 mg 7-26 capsule by ity of capsule 00:00: mouth (three) Medical times Branch daily. amLODIPine 2019 Yes [id number] 5mg Take 1 U nivers 5 mg tablet 7-26 tablet by ity of 00:00: mouth 00 daily. Medical Branch cyclobenzap Yes [id number] 10mg Take 1 Univers rine 10 mg 7-26 tablet by ity of tablet 00:00: mouth (three) Medical times Branch daily as needed for Muscle Spasms. gabapentin Yes [id number] 400mg Take 1 Univers 400 mg 7-26 capsule by ity of capsule 00:00: mouth (three) Medical times Branch daily. amLODIPine Yes [id number] 5mg Take 1 U nivers 5 mg tablet 7-26 tablet by ity of 00:00: mouth 00 daily. Medical Branch amLODIPine 2018- Yes [id number] 5mg Take 1 U nivers 5 mg tablet 7-26 tablet by ity of 00:00: mouth 00 daily. Medical Branch cyclobenzap Yes [id number] 10mg Take 1 Univers rine 10 mg 7-26 tablet by ity of tablet 00:00: mouth (three) Medical times Branch daily as needed for Muscle Spasms. gabapentin Yes [id number] 400mg Take 1 Univers 400 mg 7-26 [...] 1 Univ ers 5 mg tablet 5-07 - TABLET BY it y of 00:00: 00:00 MOUTH [place] 00 :00 EVERY DAY Medical Branch METOPROLOL 2018-0 Yes TAKE 1 Unive rs TARTRATE 50 3-12 TABLET BY ity of mg tablet 00:00: [facility] 00 TWICE A Medical DAY Branch METOPROLOL 2018-0 2019- No TAKE 1 Univ ers TARTRATE 50 3-12 07-26 TABLET BY it y of mg tablet 00:00: 00:00 MOUTH [place] 00 :00 TWICE A Medical DAY Branch GABAPENTIN 2016- Yes TAKE 3 Unive rs 300 mg 0-27 CAPSULES ity of capsule 00:00: BY MOUTH [place] 00 THREE Medical TIMES Branch DAILY. GABAPENTIN 2016- 2019- No TAKE 3 Univ ers 300 mg 0-27 07-26 CAPSULES ity of capsule 00:00: 00:00 BY MOUTH [place] 00 :00 THREE Medical TIMES Branch DAILY. Walker 2017-0 Yes [id number] Use as Unive rs (ULTRA-LIGH 6-27 directed ity of T ROLLATOR) 00:00: [place] [address] Medical Branch Walker 2017-0 Yes [id number] Use as Unive rs (ULTRA-LIGH 6-27 directed ity of T ROLLATOR) 00:00: [place] [address] Medical Branch Walker 2017-0 Yes [id number] Use as Unive rs (ULTRA-LIGH 6-27 directed ity of T ROLLATOR) 00:00: [place] [address] Medical Branch Walker 2017-0 Yes [id number] Use as Unive rs (ULTRA-LIGH 6-27 directed ity of T ROLLATOR) 00:00: [place] [address] Medical Branch Walker 2017-0 Yes [id number] Use as Unive rs (ULTRA-LIGH 6-27 directed ity of T ROLLATOR) 00:00: [place] [address] Medical Branch metroNIDAZO 2017-0 Yes 500mg Take 1 Uni vers LE 500 mg 6-12 tablet by ity o f tablet 00:00: mouth 2 [place] (two) Medical times Branch daily. metroNIDAZO 2017-0 Yes 500mg Take 1 Uni vers LE 500 mg 6-12 tablet by ity o f tablet 00:00: mouth 2 [place] (two) Medical times Branch daily. metroNIDAZO 2017-0 Yes 500mg Take 1 Uni vers LE 500 mg 6-12 tablet by ity o f tablet 00:00: mouth 2 [place] (two) Medical times Branch daily. metroNIDAZO 2017-0 [...] by ity o f tablet 00:00: mouth (two) Medical times Branch daily. aspirin 81 2017-0 Yes 81mg Take 81 mg U nivers mg chewable 6-09 by mouth ity of tablet 20:00: daily. [address] aspirin 81 2017-0 Yes 81mg Take 81 mg U nivers mg chewable 6-09 by mouth ity of tablet 20:00: daily. [address] aspirin 81 2017-0 Yes 81mg Take 81 mg U nivers mg chewable 6-09 by mouth ity of tablet 20:00: daily. [address] aspirin 81 2017-0 Yes 81mg Take 81 mg U nivers mg chewable 6-09 by mouth ity of tablet 20:00: daily. [address] aspirin 81 2017-0 Yes 81mg Take 81 mg U nivers mg chewable 6-09 by mouth ity of tablet 15:00: daily. [address] KCL 10 mEq 2017-0 Yes [id number] 10meq Take 1 Univers tablet 6-09 tablet by ity of 00:00: mouth [place] 00 daily. [facility] KCL 10 mEq Yes [id number] 10meq Take 1 Univers tablet 6-09 tablet by ity of 00:00: mouth [place] 00 daily. Medical Branch KCL 10 mEq Yes [id number] 10meq Take 1 Univers tablet 6-09 tablet by ity of 00:00: mouth [place] 00 daily. Medical Branch KCL 10 mEq Yes [id number] 10meq Take 1 Univers tablet 6-09 tablet by ity of 00:00: mouth [place] 00 daily. Medical Branch KCL 10 mEq Yes [id number] 10meq Take 1 Univers tablet 6-09 tablet [...] times Medical daily. Branch acetaminoph 2015-06 Yes [id number] 1{tbl} Take 1 Univers en-codeine 1-17 07 tablet by ity of (TYLENOL 00:00: mouth [place] #3) 300-30 00 every 6 Medica l mg tablet (six) Branch hours as needed for Pain (scale 7-10) or Pain unrelieved by non-narcot ic analgesics . acetaminoph 2015-06 2019- No [id number] 1{tbl} Take 1 Univers en-codeine 1-17 01-01 07 tablet by ity of (TYLENOL [...] Immunizations Ordered Filled Immunization Date Status Comments [facility] e Immunization Name Name TDAP (ADACEL) 2016-04-25 Completed University of VACCINE 00:00:00 [facility] TDAP (ADACEL) 2016-04-25 Completed University of VACCINE 00:00:00 [facility] TDAP (ADACEL) 2016-04-25 Completed University of VACCINE 00:00:00 [facility] TDAP (ADACEL) 2016-04-25 Completed University of VACCINE 00:00:00 [facility] TDAP (ADACEL) 2016-04-25 Completed University of VACCINE 00:00:00 [facility] Influenza Virus 2016-04-01 Completed Universit y of Vaccine Quad IM 00:00:00 [place] Med ical Multi-dose 6+ MO Branch Influenza Virus 2016-04-01 Completed Universit y of Vaccine Quad IM 00:00:00 [place] Med ical Multi-dose 6+ MO Branch Influenza Virus 2016-04-01 Completed Universit y of Vaccine Quad IM 00:00:00 [place] Med ical Multi-dose 6+ MO Branch Influenza Virus 2016-04-01 Completed Universit y of Vaccine Quad IM 00:00:00 [place] Med ical Multi-dose 6+ MO Branch Influenza Virus 2016-04-01 Completed Universit y of Vaccine Quad IM 00:00:00 [place] Med ical Multi-dose 6+ MO Branch Pneumococcal 2015-08-24 Completed University o f Polysaccharide, 00:00:00 [place] Med ical PPSV23 (PNEUMOVAX) Branch Influenza Virus 2015-08-24 Completed Universit y of Vaccine Quad IM 3+ 00:00:00 [facility] Pneumococcal 2015-08-24 Completed University o f Polysaccharide, 00:00:00 [place] Med ical PPSV23 (PNEUMOVAX) Branch Influenza Virus 2015-08-24 Completed Universit y of Vaccine Quad IM 3+ 00:00:00 [facility] Pneumococcal 2015-08-24 Completed University o f Polysaccharide, 00:00:00 [place] Med ical PPSV23 (PNEUMOVAX) Branch Influenza Virus 2015-08-24 Completed Universit y of Vaccine Quad IM 3+ 00:00:00 [facility] Pneumococcal 2015-08-24 Completed University o f Polysaccharide, 00:00:00 [place] Med ical PPSV23 (PNEUMOVAX) Branch Influenza Virus 2015-08-24 Completed Universit y of Vaccine Quad IM 3+ 00:00:00 [facility] Pneumococcal 2015-08-24 Completed University o f Polysaccharide, 00:00:00 [place] Med ical PPSV23 (PNEUMOVAX) Branch Influenza Virus 2015-08-24 Completed Universit y of Vaccine Quad IM 3+ 00:00:00 [facility] HEPATITIS A 2014-10-06 Completed University of 00:00:00 [facility] Vital Signs Vital Name Observation Time Observation Value Comments Source Systolic blood 2019-01-01 13:32:00 142 mm[Hg] Univer sity of pressure [facility] Diastolic blood 2019-01-01 13:32:00 100 mm[Hg] Unive rsity of pressure [facility] Heart rate 2019-01-01 13:32:00 86 /min [facility] Body temperature 2019-01-01 13:32:00 [facility].44 [facility] height 2019-01-01 13:32:00 165.1 cm [facility] Body weight 2019-01-01 13:32:00 81.647 kg [facility] BMI 2019-01-01 13:32:00 29.95 kg/m2 [facility] Procedures Procedure Date / Time Performing Clinician Source Performed REFERRAL- 2022-04-07 05:01:00 Doctor Unassigned, No [facility] REQUEST/RESPONSE Name [facility] AUTHORIZATION FOR 2019-02-18 05:01:00 Doctor Unassigned, No [facility] RELEASE OF PHI Name [facility] COMP. METABOLIC PANEL 2019-01-01 13:52:00 [id number] [place] LIPID PANEL 2019-01-01 13:52:[address] [facility] ([id number])(TOTAL Medical Branch CHOLESTEROL, TRIGLYCERIDES, HDL) CBC WITH DIFFERENTIAL 2019-01-01 13:52:00 [facility] 2019-01-01 13:15:46 Doctor Unassigned, No [facility] Encounters Start End Encounter Admission Attending Care Care Encounter Source Date/Time Date/Time Type Type Clinicians Facility Department ID 2022-10-02 2022-10-02 Outpatient SFA SFA [id number] [place] 09:05:54 09:05:54 [id number] [facility] 2022-09-05 2022-09-05 [facility] [id number] Univers 14:00:00 14:00:00 [facility] 2022-07-24 2022-07-24 [facility] [id number] Univers 13:15:00 13:15:00 [facility] 2022-06-26 2022-06-26 Outpatient SFA SFA [id number] [place] 10:10:22 10:10:22 [id number] [facility] 2022-04-07 2022-04-07 Orders Doctor FLANNERY [id number] Univers 00:00:00 00:00:00 Only Unassigned, [place] [id number] ity of [place] [facility] 4.2.7.2.686 [place] [phone] [address] 2022-03-26 2022-03-26 Outpatient SFA SFA [id number] [place] 10:47:27 10:47:27 [id number] F Errol 2019-02-18 2019-02-18 Orders Doctor PRUDENCIO [id number] Univers 00:00:00 00:00:00 Only Unassigned, [place] [id number] ity of [place] [facility] [id number] [place] [phone] [address] 2019-01-24 2019-01-24 Refill Goran MTYULI [id number] Univers 00:00:00 00:00:00 [facility] [id number] ity of [place] [id number] [place] Professio [phone] [place] dical nal [address] [place] [address] 2019-01-01 2019-01-01 Office Goran [facility] [id number] [facility] 08:17:32 09:01:49 Visit Danielful [facility] [id number] ity of [place] [id number] [place] Professio [phone] [place] dicaz nal [address] [place] [address] 2019-01-01 2019-01-01 Orders Doctor PRUDENCIO [id number] Univers 00:00:00 00:00:00 Only Unassigned, [place] [id number] ity of [place] [facility] [id number] [place] [phone] [address] Results Test Description Test Time Test Comments Results Result Comments Source TSH, THIRD GENERATION 2022-01-02 04:53:46 Test Item Value Reference Range Interpretation Comme [facility] TSH, THIRD GENERATION (test 89.300 UIU/ML 0.400-4.100 H UNLESS OTHERWISE INDICATED, code = 2821) ALL TESTING PER FORMED ATCLINICAL PATH [employer] [facility], [facility]. [address] [place] [address] 7510 SANIPRACTIC PHYSICIAN: Ethan HARTMAN [id number] [place] [id number] CBC W/AUTO DIFF WITH [id number] 04:43:48 Test Item Value Reference Range Interpretation [...] RBCS 0.00 K/UL 0.00-0.11 (test code = 61481) LIPID [id number] 03:18:10 Test Item Value Reference Range Interpretation [...] MOREINFORMATION , SEE CLIENT ANNOUNCE MENT AT [email or web address] /CalcLDL-[email or web address] RISK RATIO LDL/HDL 1.78 RATIO <3.22 (test code = 223) COMPREHENSIVE METABOLIC [id number] 03:18:10 Test Item Value Reference Range Interpretation Comments GLUCOSE (test code = 98 MG/DL 70-99 2216) BUN (test code = 12 MG/DL 8-23 2207) CREATININE (test 0.81 MG/DL 0.60-1.30 code = 221) eGFR (2020 CKD-EPI) 83 ML/MIN/1.73 >60 (test code = 90990) CALC BUN/CREAT (test 15 RATIO 6-28 code = 2235) SODIUM (test code = 141 MEQ/L 103-507 4801) POTASSIUM (test code 4.3 MEQ/L 3.5-5.4 = 2227) CHLORIDE (test code 103 MEQ/L 95-107 = 2214) CARBON DIOXIDE (test 29 MEQ/L 19-31 code = 220) CALCIUM (test code = 9.5 MG/DL 8.5-10.5 2208) PROTEIN, TOTAL (test 8.7 G/DL 6.1-8.3 H code = 222) ALBUMIN (test code = 3.5 G/DL 3.5-5.2 [...] (test code = 47 U/L 5-40 H 2219) COMP. METABOLIC PANEL (77567)2019-01-01 16:13:00 Test Item Value Reference Range Interpretation Comments NA (test code = 142 mmol/L 135-145 1981606181) K (test code = 5.6 mmol/L 3.5-5 H 1305112467) CL (test code = 106 mmol/L 98-108 2203743861) CO2 TOTAL (test code = 28 mmol/L 23-31 2201983391) AGAP (test code = 2-16 1106710186) BUN (test code = 6 mg/dL 7-23 L 4157435427) GLUCOSE (test code = 105 mg/dL 70-110 4535689915) CREATININE (test code = 0.79 mg/dL 0.5-1.04 3570048512) TOTAL BILI (test code = 1.3 mg/dL 0.1-1.1 H 3542615852) CALCIUM (test code = 9.1 mg/dL 8.6-10.6 7484186309) T PROTEIN (test code = 8.7 g/dL 6.3-8.2 H 7529015864) ALBUMIN (test code = 4.0 g/dL 3.5-5 8844626158) ALK PHOS (test code = 72 U/L 34-122 7573396345) ALT(SGPT) (test code = 58 U/L 9-51 H 6056948258) AST(SGOT) (test code = 87 U/L 13-40 H 0064200732) eGFR Calculation mL/min/1.73m2 (Non-) (test code = 7788831290) eGFR Calculation mL/min/1.73m2 () (test code = 8788875848) ROMY (test code = ROMY) Association of [...] tests). Lab Interpretation Abnormal (test code = 70506-3) [facility]TOTAL CHOLESTEROL, TRIGLYCERIDES, HDL)2019-01-01 16:13:00 Test Item Value Reference Range Interpretation Comments CHOL (test code = 160 mg/dL 120-200 2159884571) HDL (test code = 61 mg/dL >50 3756047451) HDLC RATIO (test code = See_Comment [Au tomated message] 5564288827) The system [employer] generated this result transmit amelie reference range : <=4.5. The refe rence range was not u sed to interpret th is result as normal/abnormal . TRIG (test code = 73 mg/dL 30-170 3026241068) LDL CHOL (test code = 84 mg/dL See_Comment [Auto mated message] 14544-8) The system [employer] generated this result transmit amelie reference range : <=160. The refe rence range was not u sed to interpret th is result as normal/abnormal . VLDL (test code = 15 mg/dL 5-60 4463493952) Lab Interpretation (test Normal code = 82799-3) [facility]"
[2022-10-27 03:34] LABS: Absolute Lymphocytes (CBC) 1.1 K/uL (0.7-4.9); Hematocrit 43.8 % (36.0-45.0); Lymphocytes % 39.2 % (15.3-44.8); MCV 91.4 fL (80-100); RBC Red Blood Cell Count 4.79 M/uL (3.86-4.86)
[2022-10-27 03:50] LABS: Bilirubin Direct 0.5 mg/dL (0-0.2); Bilirubin Indirect, Calculated 0.4 mg/dL (0.2-0.8); Bilirubin Total 0.9 mg/dL (0.2-1.0); Troponin High Sensitivity 13.7 pg/mL (<58.9)
[2022-10-27] MEDS ORDERED: KETOROLAC 30 MG/ML INJ ONE (03:52)
[2022-10-27 04:24] LABS: Specific Gravity 1.007 (1.005-1.030); Urine Bacteria >50 /HPF (<20); Urine Bilirubin NEGATIVE (Negative); Urine Blood Negative (Negative); Urine Clarity Turbid (Clear); Urine Color Light-Yellow (Yellow); Urine Glucose NEGATIVE (Negative); Urine Mucus Slight /HPF (None Seen); Urine Protein NEGATIVE (Negative); Urine RBC <5 /HPF (None Seen); Urine Urobilinogen 2+ (Normal); Urine pH 6.5 (5.0-7.0)
[2022-10-27] MEDS ORDERED: CEFTRIAXONE 1000 MG/VIAL ONE (04:39)
[2022-10-27 05:06] LABS: Blood Morphology Comment NOT SEEN (NOT SEEN); Platelet Estimate DECR; White Blood Cell Scan OK (OK)
[2022-10-27] MEDS ORDERED: LACTULOSE 20 GM/30 ML UCUP ONE (06:23)
--- NOTE | 2022-10-27 06:33 | ER ---
Nurse's Notes [facility] Name: Maisha Leo Age: 62 yrs Sex: Female : 1960 Arrival Date: 10/27/2022 Time: 03:11 Bed 20 Private MD: Diagnosis: UTI/ Urinary tract infection, site not specified;Metabolic encephalopathy;Weakness Presentation: 10/27 03:13 Chief complaint: EMS states: EMS was toned out for a pt who had fallen on the sidewalk. kd3 When EMS arrived on scene, pt was found laying, face down, on the sidewalk. pt currently complains of low back pain and right leg pain. Coronavirus screen: Vaccine status: Patient reports being unvaccinated. Ebola Screen: No symptoms or risks identified at this time. Risk Assessment: Do you want to hurt yourself or someone else? Patient reports no desire to harm self or others. Onset of symptoms was October 27, 2022. 03:13 Method Of Arrival: EMS: [facility] kd3 03:13 Acuity: ARTURO 3 kd3 07:08 Initial Sepsis Screen: Does the patient meet any 2 criteria? No. Patient's initial sg5 sepsis screen is negative. Does the patient have a suspected source of infection? No. Patient's initial sepsis screen is negative. Triage Assessment: 03:15 General: Appears uncomfortable, unkempt, Behavior is calm, cooperative. Pain: Complains kd3 of pain in lumbar area, left low back, right low back and right leg. Historical: - Allergies: 03:15 PENICILLINS; kd3 - Home Meds: 07:14 Keppra 500 mg Oral tablet [Active]; lamotrigine 25 mg oral tablet daily [Active]; vg1 amlodipine 10 mg tablet daily [Active]; cyclobenzaprine 10 mg oral tablet 1 tab 2 times per day [Active]; gabapentin 600 mg oral tablet 1 tab 3 times per day [Active]; Albuterol Inhl PRN [Active]; Albuterol Nebulizer PRN [Active]; - PMHx: 03:15 Seizures; Myocardial infarction; Hypothyroidism; Hypertension; Fibromyalgia; CVA; Left kd3 sided weakness; COPD; Cirrhosis; Cerebrovascular accident; Bipolar disorder; ADD/ADHD; - PSHx: 03:15 right big toe; kd3 - Immunization history:: Adult Immunizations not up to date. - Social history:: Smoking status: unknown. Screenin:20 [facility] ED Fall Risk Assessment (Adult) History of falling in the last 3 months, sg5 including since admission Yes- single mechanical fall (1 pt) Impaired Gait Yes (1 pt) Mobility Assist Device Used Yes (1 pt). Abuse screen: Denies threats or abuse. Nutritional screening: No deficits noted. Tuberculosis screening: No symptoms or risk factors identified. Primary Survey: 03:28 NO uncontrolled hemorrhage observed. Breathing/Chest: Spontaneous respiratory effort, sg5 equal unlabored respirations, breath sounds clear bilaterally, regular pattern, symmetrical chest rise and fall. Circulation: No external hemorrhage present. Regular and strong central pulse, skin warm/dry/normal color. Disability Pupils are equal, round, reactive to light and accommodation. Client is alert. Exposure/Environment: A warming method has been applied: A warm blanket has been provided to the patient. Secondary Survey: 04:26 HEENT: No deficits noted. Gastrointestinal: No deficits noted. : No deficits noted. sg5 No signs and/or symptoms were reported regarding the genitourinary system. Musculoskeletal: Capillary refill < 3 seconds, Patient has previous deficits to left side of body. Assessment: 03:17 General: Appears in no apparent distress. comfortable. Pain: Complains of pain in right sg5 leg and back and right low back and left low back and lumbar area Pain began 30 min ago. Neuro: Level of Consciousness is awake, alert, obeys commands, Oriented to person, place, time, situation, Appropriate for age Patient has deficits to left side of body from previous stroke. Walks with a walker.. Cardiovascular: Capillary refill < 3 seconds. Respiratory: Airway is patent Respiratory effort is even, unlabored. GI: Abdomen is round non-distended. : No signs and/or symptoms were reported regarding the genitourinary system. EENT: No signs and/or symptoms were reported regarding the EENT system. Derm: Skin is pink, warm \T\ dry. Musculoskeletal: No signs and/or symptoms reported regarding the musculoskeletal system. 04:57 Reassessment: pure wick placed. sg5 05:47 Reassessment: No changes from previously documented assessment. Patient and/or family sg5 updated on plan of care and expected duration. Pain level reassessed. Patient is alert, oriented x 3, equal unlabored respirations, skin warm/dry/pink. 07:29 Reassessment: Patient appears in no apparent distress at this time. Patient and/or vg1 family updated on plan of care and expected duration. Pain level reassessed. Patient is alert, oriented x 3, equal unlabored respirations, skin warm/dry/pink. no new orders placed; pt waiting for admission room to floor. 08:04 Reassessment: Patient appears in no apparent distress at this time. pt resting with vg1 eyes closed. 08:32 Reassessment: no new orders placed; pt waiting for admission room to floor. vg1 09:30 Reassessment: Patient appears in no apparent distress at this time. No changes from vg1 previously documented assessment. pt resting with eyes closed. 10:14 Reassessment: Dr iMx at pt bedside. vg1 10:55 Reassessment: Attempted to call report. vg1 Vital Signs: 03:17 BP 145 / 96; Pulse 79; Resp 16; Pulse Ox 97% on R/A; Pain 4/10; sg5 04:28 BP 131 / 88; Pulse 85; Resp 16; Pulse Ox 94% on R/A; sg5 04:38 Temp 97.4; rv1 05:48 BP 152 / 98; Pulse 84; Resp 16; Temp 97.8; Pulse Ox 98% on R/A; sg5 06:41 BP 148 / 102; Pulse 80; Resp 16; Temp 97.6; Pulse Ox 97% on R/A; sg5 07:05 BP 146 / 99; Pulse 80; Resp 16; Pulse Ox 99% ; vg1 08:00 BP 130 / 97; Pulse 84; Resp 18; Pulse Ox 96% on R/A; vg1 09:30 BP 132 / 95; Pulse 83; Resp 16; Pulse Ox 96% on R/A; vg1 03:17 Pain Scale: Adult sg5 Ale Coma Score: 04:26 Eye Response: spontaneous(4). Motor Response: obeys commands(6). Verbal Response: sg5 oriented(5). Total: 15. Trauma Score (Adult): 04:26 Eye Response: spontaneous(1); Verbal Response: oriented(1); Motor Response: obeys sg5 commands(2); Systolic BP: > 89 mm Hg(4); Respiratory Rate: 10 to 29 per min(4); Ale Score: 15; Trauma Score: 12 ED Course: 03:12 Patient arrived in ED. kd3 03:15 Triage completed. kd3 03:15 Arm band placed on. kd3 03:16 Tolu Lance MD is Attending Physician. bs3 03:17 Shannon Daniels, RN is Primary Nurse. sg5 03:20 Patient has correct armband on for positive identification. Bed in low position. Call sg5 light in reach. Side rails up X2. Valuables Left with patient. 03:26 Inserted saline lock: 20 gauge in right antecubital area, using aseptic technique. rv1 Blood collected. 03:26 AMMONIA Sent. rv1 03:26 CBC with Diff Sent. rv1 03:26 Magnesium Sent. rv1 03:26 NT PRO-BNP Sent. rv1 03:26 Troponin HS Sent. rv1 03:38 CBC with Diff Sent. rv1 03:38 Magnesium Sent. rv1 03:38 NT PRO-BNP Sent. rv1 03:38 Troponin HS Sent. rv1 04:10 Head C Spine Cap Wo Con In Process Unspecified. EDMS 04:28 XRAY Chest (1 view) In Process Unspecified. EDMS 04:28 XRAY Pelvis In Process Unspecified. EDMS 04:28 Knee Left 3 View XRAY In Process Unspecified. EDMS 04:28 Knee Right 3 View XRAY In Process Unspecified. EDMS 06:31 Speedy Mix is Hospitalizing Provider. bs3 Administered Medications: 03:52 Drug: Ketorolac IVP 15 mg Route: IVP; Site: right antecubital; sg5 04:42 Drug: Rocephin IV 1 grams Route: IV; Rate: bolus; Site: right antecubital; sg5 06:52 Drug: Lactulose PO 30 grams Volume: 45 ml; Route: PO; sg5 Medication: 03:20 VIS not applicable for this client. sg5 Intake: 04:26 PO: 0ml; Total: 0ml. sg5 07:27 purewick vg1 Output: 04:26 Urine: 100ml (Voided); Total: 100ml. sg5 07:27 Urine: 500ml (Voided); Total: 600ml. vg1 07:27 purewick vg1 Outcome: 06:32 Decision to Hospitalize by Provider. bs3 11:46 Admitted to Med/surg accompanied by tech, via wheelchair, room 402, with chart, Report vg1 called to Manan ERVIN 11:46 Condition: good 11:46 Instructed on the need for admit. 11:59 Patient left the ED. vg1 Signatures: Dispatcher [employer] Beti Mayo RN RN vg1 Christine Loza RN RN kd3 Tolu Lance MD MD bs3 Nicolette Millan rv1 Shannon Daniels RN RN sg5 Corrections: (The following items were deleted from the chart) 05:49 05:48 BP 152 / 98; Pulse 84bpm; Resp 16bpm; Pulse Ox 98% RA; sg5 sg5 08:34 07:29 Reassessment: Patient appears in no apparent distress at this time. Patient vg1 and/or family updated on plan of care and expected duration. Pain level reassessed. Patient is alert, oriented x 3, equal unlabored respirations, skin warm/dry/pink. vg1
--- NOTE | 2022-10-27 06:33 | EDPHYS ---
Physician Documentation [facility] Name: Maisha Leo Age: 62 yrs Sex: Female : 1960 Arrival Date: 10/27/2022 Time: 03:11 Bed 20 Private MD: ED Physician Tolu Lance HPI: 10/27 04:18 This 62 yrs old Female presents to ER via EMS with complaints of Fall Injury. bs3 04:18 This is a 62-year-old female history of seizure disorder, VT hypothyroidism bs3 hypertension, cirrhosis, CVA with residual deficits presents with a fall per EMS the patient called for a fall when she was walking from a friend's house she notes that she was recently evicted from her house and living situation and has been homeless since she is a poor historian but believes that she tripped while she was using her walker per EMS she was found laying on the ground face down she is complaining of bilateral leg pain. Historical: - Allergies: 03:15 PENICILLINS; kd3 - Home Meds: 07:14 Keppra 500 mg Oral tablet [Active]; lamotrigine 25 mg oral tablet daily [Active]; vg1 amlodipine 10 mg tablet daily [Active]; cyclobenzaprine 10 mg oral tablet 1 tab 2 times per day [Active]; gabapentin 600 mg oral tablet 1 tab 3 times per day [Active]; Albuterol Inhl PRN [Active]; Albuterol Nebulizer PRN [Active]; - PMHx: 03:15 Seizures; Myocardial infarction; Hypothyroidism; Hypertension; Fibromyalgia; CVA; Left kd3 sided weakness; COPD; Cirrhosis; Cerebrovascular accident; Bipolar disorder; ADD/ADHD; - PSHx: 03:15 right big toe; kd3 - Immunization history:: Adult Immunizations not up to date. - Social history:: Smoking status: unknown. ROS: 05:37 Constitutional: Negative for fever, chills bs3 05:37 All other systems are negative. Exam: 05:37 Constitutional: Patient appears frail she appears older than stated age she is unkempt bs3 Head/Face: Normocephalic, atraumatic. Eyes: Pupils equal round and reactive to light, extra-ocular motions intact. Lids and lashes normal. ENT: mmm, no posterior phyarngeal erythema Chest/axilla: Normal chest wall appearance and motion. Nontender with no deformity. No lesions are appreciated. Cardiovascular: Regular rate and rhythm with a normal S1 and S2. symmetric pulses in upper extremities Respiratory: Lungs have equal breath sounds bilaterally, clear to auscultation, no respiratory distress Abdomen/GI: Soft, no focal tenderness but mild diffuse tenderness MS/ Extremity: Pulses equal, no cyanosis. She has slight bilateral edema in her lower extremities no significant calf tenderness, she complains of pain just proximal to her knees bilaterally to palpation and states that that is where she landed Neuro: Awake and alert, GCS 15, oriented to person, place, time, and situation. Cranial nerves II-XII grossly intact. Motor strength 5/5 in all extremities. Sensory grossly intact. Psych: Awake, alert, with orientation to person, place and time. Behavior, mood, and affect are within normal limits. Vital Signs: 03:17 BP 145 / 96; Pulse 79; Resp 16; Pulse Ox 97% on R/A; Pain 4/10; sg5 04:28 BP 131 / 88; Pulse 85; Resp 16; Pulse Ox 94% on R/A; sg5 04:38 Temp 97.4; rv1 05:48 BP 152 / 98; Pulse 84; Resp 16; Temp 97.8; Pulse Ox 98% on R/A; sg5 06:41 BP 148 / 102; Pulse 80; Resp 16; Temp 97.6; Pulse Ox 97% on R/A; sg5 07:05 BP 146 / 99; Pulse 80; Resp 16; Pulse Ox 99% ; vg1 08:00 BP 130 / 97; Pulse 84; Resp 18; Pulse Ox 96% on R/A; vg1 09:30 BP 132 / 95; Pulse 83; Resp 16; Pulse Ox 96% on R/A; vg1 03:17 Pain Scale: Adult sg5 Ale Coma Score: 04:26 Eye Response: spontaneous(4). Motor Response: obeys commands(6). Verbal Response: sg5 oriented(5). Total: 15. Trauma Score (Adult): 04:26 Eye Response: spontaneous(1); Verbal Response: oriented(1); Motor Response: obeys sg5 commands(2); Systolic BP: > 89 mm Hg(4); Respiratory Rate: 10 to 29 per min(4); Ale Score: 15; Trauma Score: 12 MDM: 03:16 Patient medically screened. bs3 06:13 ED course: Labs notable for elevated ammonia level although improved from prior, bs3 urinalysis consistent with UTI will give antibiotics, given the confusion, fall, inability to ambulate, and uti, will admit for further treatment and management. . 06:31 Data reviewed: vital signs, nurses notes. bs3 06:31 ED course: d/w Dr. mix for admission. bs3 10/27 03:20 Order name: CBC with Diff; Complete Time: 05:23 3 10/27 03:20 Order name: Magnesium; Complete Time: 04:10 [facility] 10/27 03:20 Order name: NT PRO-BNP; Complete Time: 04:10 [facility] 10/27 03:20 Order name: Troponin HS; Complete Time: 04:10 [facility] 10/27 03:20 Order name: AMMONIA; Complete Time: 04:10 [facility] 10/27 03:20 Order name: Urinalysis w/ reflexes; Complete Time: 04:25 [facility] 10/27 03:20 Order name: LFT's; Complete Time: 04:10 [facility] 10/27 05:06 Order name: CBC Smear Scan; Complete Time: 05:23 [facility] 10/27 08:41 Order name: Basic Metabolic Panel [facility] 10/27 03:20 Order name: XRAY Chest (1 view) [facility] 10/27 03:20 Order name: XRAY Pelvis [facility] 10/27 03:20 Order name: Knee Left 3 View XRAY [facility] 10/27 03:20 Order name: Knee Right 3 View XRAY [facility] 10/27 03:27 Order name: Head C Spine Cap Wo Con [facility] 10/27 03:20 Order name: EKG; Complete Time: 03:21 [facility] 10/27 03:20 Order name: Cardiac monitoring; Complete Time: 03:38 3 10/27 03:20 Order name: EKG - Nurse/Tech; Complete Time: 03:38 [facility] 10/27 03:20 Order name: IV Saline Lock; Complete Time: 03:27 [facility] 10/27 03:20 Order name: Labs collected and sent; Complete Time: 03:27 [facility] 10/27 03:20 Order name: O2 Per Protocol; Complete Time: 03:38 [facility] 10/27 03:20 Order name: O2 Sat Monitoring; Complete Time: 03:38 bs3 Administered Medications: 03:52 Drug: Ketorolac IVP 15 mg Route: IVP; Site: right antecubital; sg5 04:42 Drug: Rocephin IV 1 grams Route: IV; Rate: bolus; Site: right antecubital; sg5 06:52 Drug: Lactulose PO 30 grams Volume: 45 ml; Route: PO; sg5 Disposition Summary: 10/27/22 06:32 Hospitalization Ordered Hospitalization Status: Inpatient Admission bs3 Provider: Speedy Mix bs3 Location: Telemetry/MedSurg (Inpatient) bs3 Condition: Stable bs3 Problem: new bs3 Symptoms: are unchanged bs3 Bed/Room Type: Standard bs3 Room Assignment: 402(10/27/22 10:37) eb Diagnosis - UTI/ Urinary tract infection, site not specified bs3 - Metabolic encephalopathy bs3 - Weakness bs3 Forms: - Medication Reconciliation Form bs3 - SBAR form bs3 Signatures: Dispatcher [employer] EDMS Lashonda Quintanilla Victoria, RN RN vg1 Christine Loza RN RN kd3 Tolu Lance MD MD bs3 Shannon Daniels RN RN sg5 Corrections: (The following items were deleted from the chart) 03:27 03:21 Head C Spine MPR Wo Con+CT.RAD.BRZ ordered. EDMS EDMS 03:27 03:21 Chest Abdomen Pelvis Wo Con+CT.RAD.BRZ ordered. EDMS EDMS 10:37 06:32 bs3 eb
--- NOTE | 2022-10-27 08:40 | P.HP ---
Certification for Inpatient Patient admitted to: Inpatient With expected LOS: >2 Midnights Practitioner: I am a practitioner with admitting privileges, knowledge of patient current condition, hospital course, and medical plan of care. Services: Services provided to patient in accordance with Admission requirements found in Title 42 Section 412.3 of the Code of Federal Regulations Patient History Date of Service: 10/27/22 Reason for admission: Fall, generalized weakness History of Present Illness: 62-year-old woman with a history of liver cirrhosis, seizure disorder, history of CVA and hypertension was brought to the emergency department by EMS due to a fall. Patient stated that she was walking with a walker to a friend's house when she fell. She believes she tripped. EMS found her on the ground and brought her to the emergency department. Work-up in the emergency department revealed UTI. Imaging shows no fracture or traumatic injury. Ammonia level is 84. Patient noted to be alert and oriented x3. Patient was hospitalized from for further management of UTI with generalized weakness. Allergies Penicillins Allergy (Intermediate, Verified 04/18/19 23:29) Anaphylaxis Home Medications: Albuterol Sulfate [Albuterol Sulfate 0.083% Neb Soln] 2.5 mg IH Q6HP PRN 09/03/22 Albuterol Sulfate [Ventolin Hfa] 1 puff IH Q6HP PRN 09/03/22 Amitriptyline [Elavil*] 50 mg PO BEDTIME 09/03/22 Amlodipine [Norvasc*] 10 mg PO DAILY 09/03/22 Gabapentin 600 mg PO TID 09/03/22 Ipratropium/Albuterol Sulfate [Combivent Respimat 20-100 Mcg] 4 gm IH BID 09/03/22 Levothyroxine [Synthroid*] 100 mcg PO [id number] 09/03/22 Lisinopril [Zestril] 40 mg PO DAILY 09/03/22 Meloxicam [Mobic*] 7.5 mg PO BID PRN 09/03/22 Oxybutynin Chloride [Oxybutynin Chloride ER] 5 mg PO DAILY 09/03/22 Trazodone HCl 100 mg PO BEDTIME 09/03/22 Lactulose [Cephulac*] 15 ml PO BID 30 Days #900 ml 09/07/22 Rifaximin [Xifaxan] 550 mg PO BID 30 Days #60 tab 09/07/22 - Past Medical/Surgical History Diabetic: No -: Hypothyroidism -: HTN -: Anxiety -: Seizures -: HX IA x2 -: HX CVA x2 -: Osteoarthritis -: Hepatitis C -: liver cirrhosis -: Geovanny's paralysis -: Neck Surgery -: Tubal Ligation - Family History Mother -: Heart disease, Diabetes Father -: Other (see notes) Notes: Alzeimers Brother -: Other (see notes) Notes: COPD, Bone Cancer, Back Surgery - Social History Alcohol use: Yes CD- Drugs: No Caffeine use: Yes Review of Systems Other: Patient denied any fever, she denied any shortness of breath, no chest pain no abdominal pain, no nausea vomiting or diarrhea. Except as documented all other systems reviewed and negative. Physical Examination - Physical Exam General: Alert, In no apparent distress, Oriented x3 HEENT: Mucous membr. moist/pink, Sclerae nonicteric Neck: Supple, JVD not distended Respiratory: Clear to auscultation bilaterally, Normal air movement Cardiovascular: No edema, Regular rate/rhythm, Normal S1 S2 Gastrointestinal: Normal bowel sounds, Soft and benign, Non-distended, No tenderness Musculoskeletal: No swelling Integumentary: No rashes, No cyanosis Neurological: Normal speech, Normal strength at 5/5 x4 extr Lymphatics: No axilla or inguinal lymphadenopathy - Studies Laboratory Data (last 24 hrs) 10/27/22 03:23: Magnesium 2.0, Total Bilirubin 0.9, AST 55 H, ALT 43, Alkaline Phosphatase 80 10/27/22 03:23: WBC 2.90 L, Hgb 14.9, Hct 43.8, Plt Count 123 L Assessment and Plan - Problems (Diagnosis) (1) Fall Current Visit: Yes Status: Acute (2) UTI (urinary tract infection) Current Visit: Yes Status: Acute (3) Liver cirrhosis Current Visit: Yes Status: Acute (4) Weakness generalized Onset Date: 11/18/17 Current Visit: No Status: Acute (5) History of CVA (cerebrovascular accident) Current Visit: No Status: Chronic (6) Hypertension Current Visit: No Status: Chronic Qualifiers: Hypertension type: essential hypertension Qualified Code(s): I10 - Essential (primary) hypertension (7) Hypothyroidism Onset Date: 11/18/17 Current Visit: No Status: Chronic Qualifiers: Hypothyroidism type: acquired Qualified Code(s): E03.9 - Hypothyroidism, unspecified - Plan Admitted to the medical floor. Supportive measures-pain management as needed Start IV Rocephin for UTI. Obtain urine culture. Patient is alert and oriented-no hepatic encephalopathy. Continue gabapentin, Lamictal and Keppra for seizures. She is on gabapentin also for pain. PT to evaluate Reconcile and continue other home medications. Social service consult for disposition. Patient stated she is homeless at the moment. She is waiting for her next check to rent an apartment. - Advance Directives Does patient have a Living Will: No Does patient have a Durable POA for Healthcare: Yes
[2022-10-27] MEDS ORDERED: ONDANSETRON 4 MG/2 ML VIAL IV PRN (12:06)
[2022-10-27 12:33] VITALS: BMI 26.6
[2022-10-27 12:59] LABS: Potassium 3.1 mEq/L (3.5-5.1)
[2022-10-27 13:21] LABS: Specific Gravity 1.009 (1.005-1.030); Urine Bacteria None Seen /HPF (<20); Urine Bilirubin NEGATIVE (Negative); Urine Blood Negative (Negative); Urine Clarity Clear (Clear); Urine Color Light-Yellow (Yellow); Urine Glucose NEGATIVE (Negative); Urine Protein NEGATIVE (Negative); Urine RBC <5 /HPF (None Seen); Urine Urobilinogen 1+ (Normal); Urine pH 7.5 (5.0-7.0)
--- NOTE | 2022-10-27 17:33 | EKG ---
Test Date: 2022-10-27 Test Time: 03:36:00 Legal Secretary Receptionist: RV MEASUREMENT RESULTS: Intervals: Rate: 75 NM: 182 QRSD: 98 QT: 444 QTc: 495 [place]: P: 71 NM: 182 QRS: -16 T: 65 INTERPRETIVE STATEMENTS: Normal sinus rhythm Inferior infarct, age undetermined Anterior infarct, age undetermined Abnormal ECG Compared to ECG 09/02/2022 13:48:48 No significant changes Electronically Signed On 10-27-22 17:32:51 CDT by Andrew Upton
[2022-10-27] MEDS ORDERED: MELOXICAM 7.5 MG TAB PO PRN (20:05)
[2022-10-27] MEDS ORDERED: TRAZODONE 50 MG TABLET PO PRN (20:10)
[2022-10-27] MEDS: GABAPENTIN 300 MG CAP PO SCH (20:30)
[2022-10-27] MEDS: CYCLOBENZAPRINE 10 MG TAB PO PRN (20:30)
[2022-10-27] MEDS: levETIRAcetam 500 MG TAB PO SCH (20:31)
[2022-10-27] MEDS: LACTULOSE 20 GM/30 ML UCUP PO SCH (20:31)
[2022-10-27] MEDS ORDERED: AMITRIPTYLINE 50 MG TAB PO SCH (21:00)
[2022-10-27] MEDS ORDERED: POTASSIUM CL SA 10 MEQ TAB PO ONE (21:00)
[2022-10-28 04:31] LABS: Absolute Lymphocytes (CBC) 0.9 K/uL (0.7-4.9); Lymphocytes % 31.5 % (15.3-44.8); MCV 91.6 fL (80-100); MPV 8.2 fL (7.6-11.3); RBC Red Blood Cell Count 4.37 M/uL (3.86-4.86)
[2022-10-28 04:51] LABS: Albumin 2.4 g/dL (3.4-5.0); Bilirubin Total 0.5 mg/dL (0.2-1.0); Magnesium 1.9 mg/dL (1.6-2.4); Phosphorus 3.5 mg/dL (2.5-4.9); Potassium 3.7 mEq/L (3.5-5.1); Protein, Total 6.7 g/dL (6.4-8.2)
[2022-10-28] MEDS ORDERED: LEVOTHYROXINE SOD 0.1 MG TAB PO SCH (06:00)
[2022-10-28] MEDS: CYCLOBENZAPRINE 10 MG TAB PO PRN (07:57)
[2022-10-28] MEDS: levETIRAcetam 500 MG TAB PO SCH (07:57)
[2022-10-28] MEDS: GABAPENTIN 300 MG CAP PO SCH ×2 (07:57→15:37)
[2022-10-28] MEDS: LACTULOSE 20 GM/30 ML UCUP PO SCH (08:02)
[2022-10-28 08:34] VITALS: O2SAT 92
[2022-10-28] MEDS ORDERED: lamoTRIgine 25 MG TAB PO SCH (09:00)
[2022-10-28] MEDS ORDERED: AMLODIPINE 10 MG TAB PO SCH (09:00)
[2022-10-28] MEDS ORDERED: POTASSIUM CL SA 10 MEQ TAB PO ONE (09:00)
[2022-10-28] MEDS ORDERED: CEFTRIAXONE 1,000 MG in NA CHLORIDE 0.9% 50 ML IVPB SCH (09:00)
[2022-10-28] MEDS ORDERED: lisinopriL 20 MG TAB PO SCH (09:00)
[2022-10-28] MEDS ORDERED: MORPHINE 2 MG/ML SYR IV ONE (11:01)
--- NOTE | 2022-10-28 11:03 | P.DS ---
Admission Date: 10/27/22 Discharge Date: 10/28/22 Disposition: DC HOME/HOME HEALTH CARE Discharge Condition: FAIR Reason for Admission: Fall, generalized weakness - Problems (1) Fall Current Visit: Yes Status: Acute (2) UTI (urinary tract infection) Current Visit: Yes Status: Acute (3) Liver cirrhosis Current Visit: Yes Status: Acute (4) Weakness generalized Onset Date: 11/18/17 Current Visit: No Status: Acute (5) History of CVA (cerebrovascular accident) Current Visit: No Status: Chronic (6) Hypertension Current Visit: No Status: Chronic Qualifiers: Hypertension type: essential hypertension Qualified Code(s): I10 - Essential (primary) hypertension (7) Hypothyroidism Onset Date: 11/18/17 Current Visit: No Status: Chronic Qualifiers: Hypothyroidism type: acquired Qualified Code(s): E03.9 - Hypothyroidism, unspecified Brief History of Present Illness: 62-year-old woman with a history of liver cirrhosis, seizure disorder, history of CVA and hypertension was brought to the emergency department by EMS due to a fall. Patient stated that she was walking with a walker to a friend's house when she fell. She believes she tripped. EMS found her on the ground and brought her to the emergency department. Work-up in the emergency department revealed UTI. Imaging shows no fracture or traumatic injury. Ammonia level is 84. Patient noted to be alert and oriented x3. Patient was hospitalized from for further management of UTI with generalized weakness. Hospital Course: Patient admitted to the medical floor and treated with IV Rocephin. Patient remained alert and oriented. She was seen and evaluated by physical therapy. Patient was able to ambulate with a walker with minimal assist. She also mentioned she received her new scooter. Patient only complaint today is back pain which is managed with Flexeril and gabapentin. She reports increased pain so she is prescribed a few days of [place]. Patient is clinically stable. She is discharged with home health for therapy. She says she was elevated from her apartment and that she will go and live with her friend. She expects her arrangement for a new apartment to be completed on November 07. Vital Signs/Physical Exam: Temp Pulse Resp BP Pulse Ox 98.2 F 89 16 106/67 92 10/28/22 08:00 10/28/22 08:01 10/28/22 08:00 10/28/22 08:01 10/28/22 08:00 General: Alert, In no apparent distress, Oriented x3 HEENT: Mucous membr. moist/pink Neck: Supple, JVD not distended Respiratory: Clear to auscultation bilaterally, Normal air movement Cardiovascular: No edema, Regular rate/rhythm, Normal S1 S2 Gastrointestinal: Normal bowel sounds, Soft and benign, Non-distended, No tenderness Musculoskeletal: No swelling, No tenderness Integumentary: No rashes, No cyanosis Neurological: Normal speech, Normal strength at 5/5 x4 extr Laboratory Data at Discharge: WBC 2.70 thou/uL (4.3-10.9) L 10/28/22 03:49 Hgb 13.5 g/dL (12.0-15.0) D 10/28/22 03:49 Hct 40.0 % (36.0-45.0) 10/28/22 03:49 Plt Count 127 thou/uL (152-406) L 10/28/22 03:49 Sodium 139 mEq/L (136-145) 10/28/22 03:49 Potassium 3.7 mEq/L (3.5-5.1) D 10/28/22 03:49 BUN 15 mg/dL (7-18) 10/28/22 03:49 Creatinine 0.78 mg/dL (0.55-1.02) 10/28/22 03:49 Glucose 122 mg/dL (74-106) H 10/28/22 03:49 Phosphorus 3.5 mg/dL (2.5-4.9) 10/28/22 03:49 Magnesium 1.9 mg/dL (1.6-2.4) 10/28/22 03:49 Total Bilirubin 0.5 mg/dL (0.2-1.0) 10/28/22 03:49 AST 48 U/L (15-37) H 10/28/22 03:49 ALT 35 U/L (13-56) 10/28/22 03:49 Alkaline Phosphatase 67 U/L (45-117) 10/28/22 03:49 Home Medications: Albuterol Sulfate [Albuterol Sulfate 0.083% Neb Soln] 2.5 mg IH Q6HP PRN 09/03/22 Albuterol Sulfate [Ventolin Hfa] 1 puff IH Q6HP PRN 09/03/22 Amitriptyline [Elavil*] 50 mg PO BEDTIME 09/03/22 Amlodipine [Norvasc*] 10 mg PO DAILY 09/03/22 Gabapentin 600 mg PO TID 09/03/22 Ipratropium/Albuterol Sulfate [Combivent Respimat 20-100 Mcg] 4 gm IH BID 09/03/22 Levothyroxine [Synthroid*] 100 mcg PO [id number] 09/03/22 Lisinopril [Zestril] 40 mg PO DAILY 09/03/22 Meloxicam [Mobic*] 7.5 mg PO BID PRN 09/03/22 Trazodone HCl 100 mg PO BEDTIME PRN 09/03/22 Lactulose [Cephulac*] 15 ml PO BID 30 Days #900 ml 09/07/22 Cyclobenzaprine [Flexeril*] 1 tab PO BIDP PRN 10/27/22 Lamotrigine [Lamictal] 25 mg PO DAILY 10/27/22 levETIRAcetam [Keppra*] 1 tab PO BID 10/27/22 Ciprofloxacin HCl [Cipro 500 MG Tablet] 500 mg PO BID #10 tab 10/28/22 Ciprofloxacin HCl [Cipro 500 MG Tablet] 500 mg PO BID 5 Days #10 tab 10/28/22 Hydrocodone 5/APAP 325 [[place] 5/325] 1 tab PO Q6H PRN #12 tab 10/28/22 New Medications: Ciprofloxacin HCl [Cipro 500 MG Tablet] 500 mg PO BID #10 tab Hydrocodone 5/APAP 325 [[place] 5/325] 1 tab PO Q6H PRN #12 tab PRN Reason: Pain Diet: AHA Activity: Fall precautions Time spent managing pt's care (in minutes): 33
[2022-10-28 12:05] VITALS: BP 119/82; TEMP 98.1
--- NOTE | 2022-10-28 12:46 | RAD REPORT ---
EXAM DESCRIPTION: CT Head and Cervical Spine Without Intravenous Contrast CLINICAL HISTORY: The patient is 62 years old and is Female; fall TECHNIQUE: Axial computed tomography images of the head/brain and cervical spine without intravenous contrast. Sagittal and coronal reformatted images were created and reviewed. This CT exam was pe rformed using one or more of the following dose reduction techniques: automated exposure control, a djustment of the mA and/or kV according to patient size, and/or use of iterative reconstruction techn ique. COMPARISON: No relevant prior studies available. FINDINGS: Brain: Unremarkable. No hemorrhage. No significant white matter disease. No edema. Ventricles: Unremarkable. No ventriculomegaly. Skull: No acute fracture. Sinuses: Unremarkable as visualized. No acute sinusitis. Mastoid air cells: Unremarkable as visualized. No mastoid effusion. Vertebrae: Prior multilevel laminectomy with posterior fusion hardware at C3-C6. No acute cervical spine fracture visualized. Patient's neck is positioned in flexion. No traumatic malalignment. Multilevel bridging osteophytes C5-C7. Discs/spinal canal/neural foramina: See above. Soft tissues: Unremarkable. Thyroid: Thyromegaly. Pleural space: No apical pneumothorax. * A single impression for all exams can be found at the end of this report EXAM DESCRIPTION: CT Chest, Abdomen and Pelvis Without Intravenous Contrast CLINICAL HISTORY: The patient is 62 years old and is Female; fall TECHNIQUE: Axial computed tomography images of the chest, abdomen and pelvis without intravenous con trast. Sagittal and coronal reformatted images were created and reviewed. This CT exam was perfor med using one or more of the following dose reduction techniques: automated exposure control, adjus tment of the mA and/or kV according to patient size, and/or use of iterative reconstruction technique . COMPARISON: No relevant prior studies available. FINDINGS: CHEST: Lungs: No pulmonary consolidation or groundglass opacities to suggest pneumonia. Pleural space: No pleural effusion or pneumothorax. Heart: Mild cardiomegaly. No significant pericardial fluid. Coronary artery calcifications. Mediastinum: No pneumomediastinum. Thyroid: Thyromegaly. ABDOMEN: Liver: Nodular liver consistent with hepatic cirrhosis. Gallbladder and bile ducts: Unremarkable. No calcified stones. No ductal dilation. Pancreas: Unremarkable. No ductal dilation. Spleen: No splenomegaly. No splenic fluid or findings to suggest splenic injury. Adrenals: Unremarkable. No mass. Kidneys and ureters: Prominent bilateral renal collecting systems which may be secondary to the p atient's full bladder. No nephrolithiasis or ureter stone. Stomach and bowel: Moderate stool and gas throughout the colon without evidence of colitis. No charis wel dilatation or obstruction. No bowel wall thickening. PELVIS: Appendix: The visualized appendix is normal. No pericecal inflammation to suggest acute appendici tis. Bladder: Unremarkable. No stones. Reproductive: Unremarkable as visualized. CHEST, ABDOMEN and PELVIS: Intraperitoneal space: No perihepatic free fluid. No free air. Bones/joints: No definite acute rib fracture. Multiple old left rib fractures. Bilateral L5 spond ylolysis grade 2 spondylolisthesis and severe bilateral neural foraminal narrowing. Moderate L4-5 deg enerative facet arthropathy. Moderate degenerative disc disease L4-5 with moderate to marked bilateral neural foraminal na rrowing L4-5. Schmorl's nodes superior endplate of L3. No acute lumbar spine fracture visualized. Lumbar scoliosis with concavity to the left. No dislocation. Soft tissues: Unremarkable. Vasculature: See above. Lymph nodes: Unremarkable. No pathologically enlarged lymph nodes. * A single impression for all exams can be found at the end of this report IMPRESSION: CT Head and Cervical Spine Without Intravenous Contrast: 1. No intracranial hemorrhage. No acute skull fracture. 2. Prior multilevel laminectomy with posterior fusion hardware at C3-C6. 3. Thyromegaly. CT Chest, Abdomen and Pelvis Without Intravenous Contrast: 1. No findings to suggest acute intrathoracic or intra-abdominal injury. Study performed without IV contrast. 2. Nodular liver consistent with hepatic cirrhosis. 3. Chronic changes at the lumbosacral region. 4. Additional non-emergent findings as above. Electronically signed by: Shannon Salazar MD 10/27/2022 6:13 AM CDT Due to temporary technical issues with the PACS/Fluency reporting system, reports are being signed by the in house radiologist without review as a courtesy to ensure prompt reporting. The interpreting r adiologist is fully responsible for the content of the report.
--- NOTE | 2022-10-28 12:47 | RAD REPORT ---
EXAM DESCRIPTION: XR Chest 1 View AP CLINICAL HISTORY: Cough COMPARISON: Chest 1 View AP 09/02/2022 report without images TECHNIQUE: Chest 1 View AP FINDINGS: Heart size and pulmonary vessels within normal limits. Lungs clear without evidence of consolidation, mass, or significant pulmonary edema. No significant pleural effusion or pneumothorax. Prominent bilateral 1st costochondral junctions (normal variant). Mild lower thoracic spine leftward convex curvature may be positional or represent mild levoscoliosis . Posterior cervical spinal fusion hardware. IMPRESSION: Unremarkable chest radiograph. Electronically signed by: Tad Azevedo MD 10/27/2022 6:25 AM CDT Due to temporary technical issues with the PACS/Fluency reporting system, reports are being signed by the in house radiologist without review as a courtesy to ensure prompt reporting. The interpreting r adiologist is fully responsible for the content of the report.
--- NOTE | 2022-10-28 12:50 | RAD REPORT ---
EXAM DESCRIPTION: Pelvis 1 View CLINICAL HISTORY: Fall COMPARISON: None. TECHNIQUE: Pelvis 1 View FINDINGS: Right iliac crest not completely imaged. No acute fracture or dislocation. Osteopenia or diffuse decreased bone density. No significant sclerotic/lytic bone lesion. Bilateral hip joint spaces unremarkable. Pubic symphysis deformity. Bilateral pelvic small devices may represent fallopian tubal ligation. Bowel gas and stool obscure sacrum. IMPRESSION: 1. No radiographic evidence of acute pelvic/hip fracture. 2. Other findings described above. Electronically signed by: Tad Azevedo MD 10/27/2022 6:29 AM CDT Due to temporary technical issues with the PACS/Fluency reporting system, reports are being signed by the in house radiologist without review as a courtesy to ensure prompt reporting. The interpreting r adiologist is fully responsible for the content of the report.
--- NOTE | 2022-10-28 12:58 | RAD REPORT ---
EXAM DESCRIPTION: Knee Left 3 View XR Left Knee 3 Views CLINICAL HISTORY: Deformity COMPARISON: Left Knee 3 Views 05/13/2019 report without images TECHNIQUE: Left Knee 3 Views FINDINGS: No acute fracture or dislocation. Small osteophytes and mild joint space narrowing in all 3 compartments. No significant sclerotic/lytic bone lesion. Soft tissues unremarkable. IMPRESSION: Mild left knee DJD. Electronically signed by: Tad Azevedo MD 10/27/2022 6:34 AM CDT Due to temporary technical issues with the PACS/Fluency reporting system, reports are being signed by the in house radiologist without review as a courtesy to ensure prompt reporting. The interpreting r adiologist is fully responsible for the content of the report.
--- NOTE | 2022-10-28 13:04 | RAD REPORT ---
EXAM DESCRIPTION: Knee Right 3 View XR Right Knee 3 Views CLINICAL HISTORY: Deformity COMPARISON: None. TECHNIQUE: Right Knee 3 Views FINDINGS: No fracture or dislocation. Right fibular neck's mildly expansile appearance resembles contralateral left side (normal variant). No significant sclerotic/lytic bone lesion. Mild joint space narrowing and small osteophytes in all 3 compartments. Soft tissues unremarkable. IMPRESSION: Mild right knee DJD. Electronically signed by: Tad Azevedo MD 10/27/2022 6:38 AM CDT Due to temporary technical issues with the PACS/Fluency reporting system, reports are being signed by the in house radiologist without review as a courtesy to ensure prompt reporting. The interpreting r adiologist is fully responsible for the content of the report.
== END 2022-10-28 16:00 | disposition home health service (06) ==
LOC: ER 03:11 → INTOOBSV 08:27 → ERHOLD 08:27 → 4TH 11:46
PROVIDERS: ADMIT Internal Medicine; ATTEND Internal Medicine
DX: R53.1 Weakness (principal); N39.0 Urinary tract infection, site not specified; K74.60 Unspecified cirrhosis of liver; I10 Essential (primary) hypertension; I25.2 Old myocardial infarction; E03.9 Hypothyroidism, unspecified; R56.9 Unspecified convulsions; M54.50 Low back pain, unspecified; M79.605 Pain in left leg; M79.604 Pain in right leg; W01.0XXA Fall on same level from slipping, tripping and stumbling without subsequent striking against object, initial encounter; Y93.89 Activity, other specified; Y92.480 Sidewalk as the place of occurrence of the external cause; Z88.0 Allergy status to penicillin; Z86.73 Personal history of transient ischemic attack (TIA), and cerebral infarction without residual deficits
CPT/HCPCS: 93005; 87088; 85025 ×2; 81001 ×2; 87086; 80048; 36415 ×2; 82140; 83735 ×2; 84100; 80076; 84484; 80053; 83880; 70450; 71250; 72125; 71045; 72170; 73562 ×2; 97116 ×2; 97161; 97530 ×2; J0696 ×2; G0378

== ENCOUNTER 2022-11-01 20:12 | Observation (INO) | payer OTHER ==
--- OUTSIDE RECORDS SUMMARY | 2022-11-01 20:16 | XMS REPORT | Continuity of Care Document ---
:1960 Author Organization [facility] t Address [address] [facility] [place] [address] Care Team Providers Name Role Phone AL AGUILAR Primary Care Physician Unavailable TAVO VIZCAINO Attending Clinician Unavailable Doctor Unassigned, [place] Attending Clinician Unavailable Al Aguilar MD Attending Clinician Payers Payer Name Policy Type Policy Number Effective Date [facility] Date [facility] [id number] 2016 00:00:00 PLUS Problems Condition Condition Condition Status Onset Resolution Last Treating Co mments Source Name Details Category Date Date Treatment Clinician Date Essential Essential Disease Active Uni vers hypertensi hypertensi 7-26 it y of on on 00:00: [address] Obesity Obesity Disease Active Univers (BMI (BMI 5-25 ity of 30-39.9) 30-39.9) 00:00: [address] [place] [address] Branch Osteomyeli Osteomyeli Disease Active U shelley tis tis 5-24 ity of 00:00: [address] Positive Positive Disease Active 2015-06 Unive rs serology serology 1-15 ity of for for 00:00: [place] syphilis syphilis 00 Medica Branch 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 1-15 it y of ve ve 00:00: [address] Trichomoni Trichomoni Disease Active 2015-06 U [place]ley asis asis 0-26 ity of 00:00: [address] Tobacco Tobacco Disease Active 2015-06 Univers [...] nivers openia openia 6-17 ity of 00:00: [place] [facility] Alcohol Alcohol Disease Active Univers use use 6-17 ity of 00:00: [place] [facility] Thrombocyt Thrombocyt Disease Active U nivers openia openia 6-17 ity of 00:00: [place] [facility] Cervical Cervical Disease Active Unive rs stenosis stenosis 3-16 ity of of spinal of spinal 00:00: [place] s canal canal 00 Medical Branch Bipolar I Bipolar I Disease Active Uni vers disorder, disorder, 8-31 ity of most most 00:00: [place] recent recent 00 Medical episode episode Branch (or (or current) current) depressed, depressed, severe, severe, without without mention of mention of psychotic psychotic behavior behavior HLD HLD Disease Active Univers (hyperlipi (hyperlipi it y of demia) demia) [facility] Hepatic Hepatic Disease Active Univers cirrhosis cirrhosis ity of [facility] Acquired Acquired Disease Active Unive rs hypothyroi hypothyroi it y of dism dism [facility] Allergies, Adverse Reactions, Alerts Allergy Allergy Status Severity Reaction(s) Onset Inactive Treating Comm ents Source Name Type Date Date Clinician Penicill Propensi Active Rash 2006- Univer s ins ty to 8 ity of adverse 00:00: [place] reaction [address] [facility] PENICILL Drug Active Rash Univers INS Class 8-29 ity of 00:00: [place] 00 [facility] Penicill Propensi Active Rash 2006- Univer s ins ty to 8 ity of adverse 00:00: [place] reaction [address] [facility] Social History Social Habit Start Date Stop Date Quantity Comments Source History of tobacco Cigarette Smoker University of use [facility] Alcohol intake 2019-05-22 2019-05-22 .86 /d University of 00:00:00 00:00:00 [facility] Tobacco use and 2015-08-01 2015-08-01 Smokeless Universit y of exposure 00:00:00 00:00:00 tobacco [facility] Cigarettes smoked 2015-08-01 2015-08-01 Univers ity of current (pack per 00:00:00 00:00:00 [facility] ) - Reported Branch Cigarette 2015-08-01 2015-08-01 University of pack-years 00:00:00 00:00:00 [facility] Tobacco Comment 2014-12-26 2014-12-26 smokes 6 cig/day Uni versity of 00:00:00 00:00:00 [facility] Sex [birth year] At [birth year] Universit y of 00:00:00 00:00:00 [facility] Smoking Status Start Date Stop Date Source Smokes tobacco daily 2015-08-01 00:00:00 Univers ity of [facility] Medications Ordered Filled Start Stop Current Ordering Indication Dosage Frequency Signature Comments Components Source Medication Medication Date Date Medication? Clinician (SIG) Name Name gabapentin 2018-06 Yes [id number] 400mg Take 1 Univers (NEURONTIN) 2-14 capsule by it y of 400 mg 00:00: mouth 3 [place] capsule 00 (three) Medical times [place] daily. cyclobenzap 2018-06 Yes [id number] 10mg Take 1 Univers rine 10 mg 2-14 tablet by ity of tablet 00:00: mouth 3 [place] 00 (three) Medical times [place] daily. amLODIPine Yes [id number] 5mg Take 1 U nivers 5 mg tablet 7-26 tablet by ity of 00:00: mouth [place] 00 daily. Medical Branch cyclobenzap Yes [id number] 10mg Take 1 Univers rine 10 mg 7-26 tablet by ity of tablet 00:00: mouth (three) Medical times Branch daily as needed for Muscle Spasms. gabapentin 2019- Yes [id number] 400mg Take 1 Univers 400 mg 7-26 capsule by ity of capsule 00:00: mouth (three) Medical times Branch daily. amLODIPine 2019 Yes [id number] 5mg Take 1 U nivers 5 mg tablet 7-26 tablet by ity of 00:00: mouth 00 daily. Medical Branch cyclobenzap Yes [id number] 10mg Take 1 Univers rine 10 mg 7-26 tablet by ity of tablet 00:00: mouth (three) Medical times Branch daily as needed for Muscle Spasms. gabapentin 2018- Yes [id number] 400mg Take 1 Univers 400 mg 7-26 capsule by ity of capsule 00:00: mouth (three) Medical times Branch daily. amLODIPine Yes [id number] 5mg Take 1 U nivers 5 mg tablet 7-26 tablet by ity of 00:00: mouth 00 daily. Medical Branch amLODIPine 2018-0 Yes [id number] 5mg Take 1 U nivers 5 mg tablet 7-26 tablet by ity of 00:00: mouth 00 daily. Medical Branch cyclobenzap Yes [id number] 10mg Take 1 Univers rine 10 mg 7-26 tablet by ity of tablet 00:00: mouth (three) Medical times Branch daily as needed for Muscle Spasms. gabapentin 2018- Yes [id number] 400mg Take 1 Univers 400 mg 7-26 capsule by ity of capsule 00:00: mouth (three) Medical times Branch daily. LEVOTHYROXI 2017- Yes TAKE 1 Univ ers NE 75 [...] BY ity of mg tablet 00:00: MOUTH [place] 00 TWICE A Medical DAY Branch METOPROLOL 2018-0 2019- No TAKE 1 Univ ers TARTRATE 50 3-12 07-26 TABLET BY it y of mg tablet 00:00: 00:00 MOUTH [place] 00 :00 TWICE A Medical DAY Branch GABAPENTIN 2017- Yes TAKE 3 Unive rs 300 mg 0-27 CAPSULES ity of capsule 00:00: BY MOUTH [place] 00 THREE Medical TIMES Branch DAILY. GABAPENTIN 2016- 2019- No TAKE 3 Univ ers 300 mg 0-27 07-26 CAPSULES ity of capsule 00:00: 00:00 BY MOUTH [place] 00 :00 THREE Medical TIMES Branch DAILY. Walker 2017-0 Yes [id number] Use as Unive rs (ULTRA-LIGH 6-27 directed ity of T ROLLATOR) 00:00: [place] [address] Medical Branch Walker 2017-0 Yes [id number] Use as Unive rs (ULTRA-LIGH 6-27 directed ity of T ROLLATOR) 00:00: [place] [address] Medical Branch Walker 2017-0 Yes [id number] Use as Unive rs (ULTRA-LIGH 6-27 directed ity of T ROLLATOR) 00:00: [place] [address] Medical Branch Walker 2017-0 Yes [id number] Use as Unive rs (ULTRA-LIGH 6-27 directed ity of T ROLLATOR) 00:00: [place] [address] Medical Branch Craig 2017-0 Yes [id number] Use as Unive rs (ULTRA-LIGH 6-27 directed ity of T ROLLATOR) 00:00: [place] [address] Medical Branch metroNIDAZO 2017-0 Yes 500mg Take 1 Uni vers LE 500 mg 6-12 tablet by ity o f tablet 00:00: mouth 2 [place] (two) Medical times Branch daily. metroNIDAZO 2017-0 Yes 500mg Take 1 Uni vers LE 500 mg 6-12 tablet by ity o f tablet 00:00: mouth 2 [place] (two) Medical times Branch daily. metroNIDAZO 2017-0 Yes 500mg Take 1 Uni vers LE 500 mg 6-12 tablet by ity o f tablet 00:00: mouth 2 [place] (two) Medical times Branch daily. metroNIDAZO 2017-0 Yes 500mg Take 1 Uni vers LE 500 mg 6-12 tablet by ity o f tablet 00:00: mouth 2 (two) Medical times Branch daily. metroNIDAZO 2017-0 Yes 500mg Take 1 Uni vers LE 500 mg 6-12 tablet by ity o f tablet 00:00: mouth 2 00 (two) Medical times Branch daily. metroNIDAZO 2017-0 [...] by mouth ity of tablet 20:00: daily. [address] aspirin 81 2017-0 Yes 81mg Take 81 mg U nivers mg chewable 6-09 by mouth ity of tablet 20:00: daily. [address] aspirin 81 2017-0 Yes 81mg Take 81 mg U nivers mg chewable 6-09 by mouth ity of tablet 20:00: daily. [address] aspirin 81 2017-0 Yes 81mg Take 81 mg U nivers mg chewable 6-09 by mouth ity of tablet 20:00: daily. [address] aspirin 81 2017-0 Yes 81mg Take 81 mg U nivers mg chewable 6-09 by mouth ity of tablet 15:00: daily. [address] KCL 10 mEq 2017-0 Yes [id number] 10meq Take 1 Univers tablet 6-09 tablet by ity of 00:00: mouth [place] 00 daily. Medical Branch KCL 10 mEq Yes [id number] 10meq Take 1 Univers tablet 6-09 tablet by ity of 00:00: mouth [place] 00 daily. Medical Branch KCL 10 mEq Yes [id number] 10meq Take 1 Univers tablet 6-09 tablet by ity of 00:00: mouth [place] 00 daily. Medical Branch KCL 10 mEq Yes [id number] 10meq Take 1 Univers tablet 6-09 tablet by ity of 00:00: mouth [place] 00 daily. Medical Branch KCL 10 mEq Yes [id number] 10meq Take 1 Univers tablet 6-09 tablet by ity of 00:00: mouth [place] 00 daily. Medical Branch baclofen 10 Yes Univer s mg tablet 6- ity of 00:00: [place] 00 Medical Branch baclofen 10 2019- No Unive rs mg tablet 6 07- ity of 00:00: 00:00 [place] 00 [...] times Medical daily. Branch acetaminoph 2015-06 Yes [id number] 1{tbl} Take 1 Univers en-codeine 1-17 07 tablet by ity of (TYLENOL 00:00: mouth [place] #3) 300-30 00 every 6 Medica l mg tablet (six) Branch hours as needed for Pain (scale 7-10) or Pain unrelieved by non-narcot ic analgesics . acetaminoph 2015-06 2019- No [id number] 1{tbl} Take 1 Univers en-codeine -17 01-01 [...] Immunizations Ordered Filled Immunization Date Status Comments [facility] e Immunization Name Name TDAP (ADACEL) 2016-04-25 Completed University of VACCINE 00:00:00 [facility] TDAP (ADACEL) 2016-04-25 Completed University of VACCINE 00:00:00 [facility] TDAP (ADACEL) 2016-04-25 Completed University of VACCINE 00:00:00 [facility] TDAP (ADACEL) 2016-04-25 Completed University of VACCINE 00:00:00 [facility] TDAP (ADACEL) 2016-04-25 Completed University of VACCINE 00:00:00 [facility] Influenza Virus 2016-04-01 Completed Universit y of Vaccine Quad IM 00:00:00 [place] Med ical Multi-dose 6+ MO Branch Influenza [...] of Vaccine [place] IM 3+ 00:00:00 [facility] Pneumococcal 2015-08-24 Completed University o f Polysaccharide, 00:00:00 [place] Med ical PPSV23 (PNEUMOVAX) Branch Influenza Virus 2015-08-24 Completed Universit y of Vaccine Quad IM 3+ 00:00:00 [facility] Pneumococcal 2015-08-24 Completed University o f Polysaccharide, 00:00:00 [place] Med ical PPSV23 (PNEUMOVAX) Branch Influenza Virus 2015-08-24 Completed Universit y of Vaccine Quad IM 3+ 00:00:00 [facility] Pneumococcal 2015-08-24 Completed University o f Polysaccharide, 00:00:00 [place] Med ical PPSV23 (PNEUMOVAX) Branch Influenza Virus 2015-08-24 Completed Universit y of Vaccine Quad IM 3+ 00:00:00 [facility] Pneumococcal 2015-08-24 Completed University o f Polysaccharide, 00:00:00 [place] Med ical PPSV23 (PNEUMOVAX) Branch Influenza Virus 2015-08-24 Completed Universit y of Vaccine Quad IM 3+ 00:00:00 [facility] HEPATITIS A 2014-10-06 Completed University of 00:00:00 [facility] Vital Signs Vital Name Observation Time Observation Value Comments Source Systolic blood 2019-01-01 13:32:00 142 mm[Hg] Univer sity of pressure [facility] Diastolic blood 2019-01-01 13:32:00 100 mm[Hg] Unive rsity of pressure [facility] Heart rate 2019-01-01 13:32:00 86 /min [facility] Body temperature 2019-01-01 13:32:00 [facility] height 2019-01-01 13:32:00 165.1 cm [facility] Body weight 2019-01-01 13:32:00 81.647 kg [facility] BMI 2019-01-01 13:32:00 29.95 kg/m2 [facility] Procedures Procedure Date / Time Performing Clinician Source Performed REFERRAL- 2022-04-07 05:01:00 Doctor Unassigned, No [facility] REQUEST/RESPONSE Name [facility] AUTHORIZATION FOR 2019-02-18 05:01:00 Doctor Unassigned, No [facility] RELEASE OF PHI Name [facility] COMP. METABOLIC PANEL 2019-01-01 13:52:00 Al Aguilar Un [facility] ([id number]) [facility] LIPID PANEL 2019-01-01 13:52:00 Al Aguilar [facility] ([id number])(TOTAL Medical Branch CHOLESTEROL, TRIGLYCERIDES, HDL) CBC WITH DIFFERENTIAL 2019-01-01 13:52:00 Al Aguilar Un [facility] ASSIGNMENT OF BENEFITS 2019-01-01 13:15:46 Doctor Unassigned, No [facility] Name [facility] Encounters Start End Encounter Admission Attending Care Care Encounter Source Date/Time Date/Time Type Type Clinicians Facility Department ID 2022-10-02 2022-10-02 Outpatient SFA SFA [id number] Ramez 09:05:54 09:05:54 [id number] [facility] 2022-09-05 2022-09-05 Outpatient Shonda VIZCAINO [facility] [id number] Univers 14:00:00 14:00:00 [facility] 2022-07-24 2022-07-24 Outpatient Shonda VIZCAINO [facility] [id number] Univers 13:15:00 13:15:00 [facility] 2022-06-26 2022-06-26 Outpatient SFA SFA [id number] R[place] 10:10:22 10:10:22 [id number] [facility] 2022-04-07 2022-04-07 Orders Doctor PRUDENCIO [id number] Univers 00:00:00 00:00:00 Only Unassigned, TAYLOR [id number] ity of [place] [facility] 4.2.7.2.686 Juno as [phone] [address] 2022-03-26 2022-03-26 Outpatient SFA SFA [id number] Ramez 10:47:27 10:47:27 [id number] F Er[place] 2019-02-18 2019-02-18 Orders Doctor PRUDENCIO [id number] Univers 00:00:00 00:00:00 Only Unassigned, TAYLOR [id number] ity of [place] [facility] 4.2.7.2.686 Juno as [id number] [address] 2019-01-24 2019-01-24 Refill Goran MEYULI [id number] Univers 00:00:00 00:00:00 [facility] [id number] ity of [place] [id number] Juno as Professio [phone] [facility] [address] [place] [address] 2019-01-01 2019-01-01 Office Goran [facility] [id number] [facility] 08:17:32 09:01:49 Visit Al [facility] [id number] ity of [place] 4.2.7.2.686 Juno as Professio [phone] Ut dic[address] Office [address] 2019-01-01 2019-01-01 Orders Doctor PRUDENCIO [id number] Univers 00:00:00 00:00:00 Only Unassigned, [place]AYLOR [id number] ity of [place] [facility] [id number] Juno as [phone] [address] Results Test Description Test Time Test Comments Results Result Comments Source TSH, THIRD GENERATION 2022-01-02 04:53:46 Test Item Value Reference Range Interpretation Comme nts TSH, THIRD GENERATION (test 89.300 UIU/ML 0.400-4.100 H UNLESS OTHERWISE INDICATED, code = 2821) ALL TESTING PER [facility]MED [facility], I RI. [address] [place] [address] 1635 PATIENT CARE REPRESENTATIVE: Ethan HARTMAN [id number] [place] [id number] CBC W/AUTO DIFF WITH [id number] 04:43:48 Test Item Value Reference Range Interpretation [...] RBCS 0.00 K/UL 0.00-0.11 (test code = 85357) LIPID [id number] 03:18:10 Test Item Value Reference Range Interpretation [...] MOREINFORMATION , SEE CLIENT ANNOUNCE MENT AT [email or web address] RATIO LDL/HDL 1.78 RATIO <3.22 (test code = 2238) COMPREHENSIVE METABOLIC [id number] 03:18:10 Test Item Value Reference Range Interpretation Comments GLUCOSE (test code = 98 MG/DL 70-99 2216) BUN (test code = 12 MG/DL 8-23 2207) CREATININE (test 0.81 MG/DL 0.60-1.30 code = 221) eGFR (2020 CKD-EPI) 83 ML/MIN/1.73 >60 (test code = 25811) CALC BUN/CREAT (test 15 RATIO 6-28 code = 2235) SODIUM (test code = 141 MEQ/L 131-533 5152) POTASSIUM (test code 4.3 MEQ/L 3.5-5.4 = [...] PHOSPHATASE 101 U/L 40-140 (test code = 2203) AST (test code = 77 U/L 9-40 H 2218) ALT (test code = 47 U/L 5-40 H 2219) COMP. METABOLIC PANEL (32144)2019-01-01 16:13:00 Test Item Value Reference Range Interpretation Comments NA (test code = 142 mmol/L 135-145 6291813570) K (test code = 5.6 mmol/L 3.5-5 H 6093246416) CL (test code = 106 mmol/L 98-108 7000885942) CO2 TOTAL (test code = 28 mmol/L 23-31 8788772153) AGAP (test code = 2-16 8481909323) BUN (test code = 6 mg/dL 7-23 L 9090729157) GLUCOSE (test code = 105 mg/dL 70-110 0371125280) CREATININE (test code = 0.79 mg/dL 0.5-1.04 5821312532) TOTAL BILI (test code = 1.3 mg/dL 0.1-1.1 H 4050678573) CALCIUM (test code = 9.1 mg/dL 8.6-10.6 7950012562) T PROTEIN (test code = 8.7 g/dL 6.3-8.2 H 8007854880) ALBUMIN (test code = 4.0 g/dL 3.5-5 6077853210) ALK PHOS (test code = 72 U/L 34-122 2037539947) ALT(SGPT) (test code = 58 U/L 9-51 H 0841535642) AST(SGOT) (test code = 87 U/L 13-40 H 0195005629) eGFR Calculation mL/min/1.73m2 (Non-) (test code = 5479865285) eGFR Calculation mL/min/1.73m2 () (test code = 0909715010) ROMY (test code = ROMY) Association of [...] tests). Lab Interpretation Abnormal (test code = 19005-2) [facility]TOTAL CHOLESTEROL, TRIGLYCERIDES, HDL)2019-01-01 16:13:00 Test Item Value Reference Range Interpretation Comments CHOL (test code = 160 mg/dL 120-200 9946510065) HDL (test code = 61 mg/dL >50 5916967382) HDLC RATIO (test code = See_Comment [Au tomated message] 1404952672) The system [employer] generated this result transmit amelie reference range : <=4.5. The refe rence range was not u sed to interpret th is result as normal/abnormal . TRIG (test code = 73 mg/dL 30-170 6815559962) LDL CHOL (test code = 84 mg/dL See_Comment [Auto mated message] 44761-7) The system [employer] generated this result transmit amelie reference range : <=160. The refe rence range was not u sed to interpret th is result as normal/abnormal . VLDL (test code = 15 mg/dL 5-60 2033382618) Lab Interpretation (test Normal code = 95104-3) [facility]"
--- NOTE | 2022-11-01 20:53 | RAD REPORT ---
EXAM DESCRIPTION: CT - Ct Stroke Brain Wo Cont - 11/01/2022 8:38 pm CLINICAL HISTORY: STROKE ALERT COMPARISON: Facial Bones W/ Mpr dated 05/10/2019; Facial Bones W/ Mpr dated 03/11/2019; Head angio mark ed 11/01/2022; Neck Angio dated 11/01/2022; Head C Spine Cap Wo Con dated 10/27/2022 TECHNIQUE: Noncontrast head CT images ad were obtained without IV contrast. Multiplanar reformats we re generated and reviewed. All CT scans are performed using dose optimization technique as appropriate and may include automated exposure control or mA/KV adjustment according to patient size. FINDINGS: No intracranial hemorrhage, mass, or edema. Partial empty sella again seen. Normal ventricular caliber for age. Hurst-white matter differentiation is preserved, without evidence of acute infarct. No abnormal extra- axial fluid collections. Mastoid air cells and visualized portions of the paranasal sinuses are clear. No acute bony findings. IMPRESSION: No evidence of an acute intracranial process. The findings were communicated to Polo Rudolph on 11/01/2022 at 20:48 hours.
--- NOTE | 2022-11-01 21:14 | RAD REPORT ---
EXAM DESCRIPTION: CT - Head angio - 11/01/2022 8:45 pm CLINICAL HISTORY: STROKE ALERT COMPARISON: Ct Stroke Brain Wo Cont dated 11/01/2022; Facial Bones W/ Mpr dated 05/10/2019 TECHNIQUE: Axial CT angiography images of the head was performed with multiplanar and maximum intens ity projection reconstructions. Images performed following intravenous administration of 97mL Isovue 370. All CT scans are performed using dose optimization technique as appropriate and may include automated exposure control or mA/KV adjustment according to patient size. FINDINGS: No evidence of large vessel occlusion. No evidence of aneurysm or dissection flap is detec amelie. No flow-limiting stenosis or vascular malformation identified. Antegrade flow is seen in the vertebral arteries. The vertebral arteries are codominant. The visualized dural venous sinuses are grossly patent. IMPRESSION: No evidence of large vessel occlusion or flow-limiting stenosis.
[2022-11-01 21:18] LABS: Absolute Lymphocytes (CBC) 0.9 K/uL (0.7-4.9); Hematocrit 39.8 % (36.0-45.0); Lymphocytes % 21.6 % (15.3-44.8); MCV 90.6 fL (80-100); MPV 8.2 fL (7.6-11.3); RBC Red Blood Cell Count 4.39 M/uL (3.86-4.86)
--- NOTE | 2022-11-01 21:22 | RAD REPORT ---
EXAM DESCRIPTION: CT - Neck Angio - 11/01/2022 8:45 pm CLINICAL HISTORY: stroke COMPARISON: Head C Spine Mpr Wo Con dated 05/20/2019; Head C Spine Mpr Wo Con dated 05/10/2019; CT HE AD CSPINE MPR WO CONTRAST dated 01/12/2014; CT HEAD CSPINE MPR WO CONTRAST dated 09/05/2013 TECHNIQUE: Axial CT angiography images of the head was performed with multiplanar and maximum intens ity projection reconstructions. Images performed following intravenous administration of 97mL Isovue 370. All CT scans are performed using dose optimization technique as appropriate and may include automated exposure control or mA/KV adjustment according to patient size. Quantification of carotid stenosis, if any, is performed according to NASCET criteria. FINDINGS: A left aortic arch is identified with normal three vessel configuration of the great vesse ls. No significant flow abnormality is seen of the common carotid bilaterally. Mild calcified atheroscle rotic plaque at the carotid bifurcations. No significant stenosis is identified involving the cervical segments of both internal carotid arteri es. Mild tortuosity along the distal ICAs bilaterally. Normal flow is seen within both vertebral arteries. Bulky appearance of the thyroid lobes bilaterally more so on the right without discrete nodules. IMPRESSION: No significant flow abnormality of the neck vessels is identified.
[2022-11-01 21:23] LABS: Protime INR 1.19
[2022-11-01 21:38] LABS: Barbiturates NEGATIVE (NEGATIVE); Benzodiazepines NEGATIVE (NEGATIVE); Cocaine POSITIVE (NEGATIVE); METHAMPHETAM NEGATIVE (NEGATIVE); Methadone NEGATIVE (NEGATIVE); Opiates NEGATIVE (NEGATIVE); Phencyclidine NEGATIVE (NEGATIVE); THC Cannibis NEGATIVE (NEGATIVE)
[2022-11-01 21:39] LABS: Bilirubin Direct 0.4 mg/dL (0-0.2); Bilirubin Indirect, Calculated 0.7 mg/dL (0.2-0.8); Bilirubin Total 1.1 mg/dL (0.2-1.0); Potassium 3.2 mEq/L (3.5-5.1); Protein, Total 7.7 g/dL (6.4-8.2); Troponin High Sensitivity 13.2 pg/mL (<58.9)
--- NOTE | 2022-11-01 22:25 | RAD REPORT ---
EXAM DESCRIPTION: RADChest Single View11/01/2022 9:36 pm CLINICAL HISTORY: stroke COMPARISON: Chest Single View dated 10/27/2022; Chest Single View dated 09/02/2022; Chest Single View dated 01/22/2022; Chest Single View dated 05/13/2019; Neck Angio dated 11/01/2022; Head C Spine Cap Wo C on dated 10/27/2022 TECHNIQUE: Portable AP view of the chest. FINDINGS: The lungs show no focal consolidation. Mild centra vascular prominence and interstitial th ickening is stable. No pneumothorax or effusion. The cardiomediastinal contours are unremarkable. IMPRESSION: Stable findings as above. No other acute process.
--- NOTE | 2022-11-01 22:38 | EDPHYS ---
Physician Documentation [facility] Name: Maisha Leo Age: 62 yrs Sex: Female : 1960 Arrival Date: 11/01/2022 Time: 20:12 Bed 13 Private MD: ED Physician Polo Rudolph HPI: 11/01 21:07 This 62 yrs old Female presents to ER via EMS with complaints of dizzy, fall, slurred ms3 speach. 21:07 62-year-old female with past medical history of bipolar disorder, ADD, seizures, CVA, ms3 COPD, cirrhosis, hypertension, fibromyalgia presents via [facility] for slurred speech, dizziness, weakness, fall at approximately 7 PM. Patient states her symptoms began at some point this afternoon. Patient states she fell at approximately 7 PM. Patient is unaware of her last tetanus shot. Patient states she has back and leg pain. Patient denies alleviating or inciting factors.. Historical: - Allergies: 20:39 PENICILLINS; mb9 - Home Meds: 20:39 Albuterol Inhl PRN [Active]; amlodipine 10 mg tablet daily [Active]; cyclobenzaprine 10 mb9 mg Oral tablet 1 tab 2 times per day [Active]; Keppra 500 mg Oral tablet [Active]; lamotrigine 25 mg Oral tablet daily [Active]; gabapentin 600 mg Oral tablet 1 tab 3 times per day [Active]; - PMHx: 20:39 Bipolar disorder; ADD/ADHD; Seizures; Cerebrovascular accident; Cirrhosis; COPD; mb9 Fibromyalgia; Myocardial infarction; Hypothyroidism; Hypertension; CVA; Left sided weakness; - PSHx: 20:39 right big toe; mb9 - Immunization history:: Adult Immunizations up to date. - Social history:: Smoking status: Patient reports the use of cigarette tobacco products, smokes one pack cigarettes per day. ROS: 21:07 Constitutional: Negative for fever, and chills. Neck: Negative for injury, pain, and ms3 swelling, Cardiovascular: Negative for chest pain, and palpitations. Respiratory: Negative for shortness of breath, cough, wheezing, and pleuritic chest pain, Abdomen/GI: Negative for abdominal pain, nausea, vomiting, diarrhea, and constipation. 21:07 Skin: Positive for abrasion(s). 21:07 Neuro: Positive for dizziness, speech changes. 21:07 All other systems are negative. Exam: 21:07 Radiologist reports: Negative ms3 21:10 Constitutional: This is a well developed, well nourished patient who is awake, alert, ms3 and in no acute distress. Head/Face: Normocephalic, atraumatic. Neck: Trachea midline, no cervical lymphadenopathy. Supple, full range of motion without nuchal rigidity, or vertebral point tenderness. No Meningismus. Chest/axilla: Normal chest wall appearance and motion. Nontender with no deformity. Cardiovascular: Regular rate and rhythm with a normal S1 and S2. No gallops, murmurs, or rubs. Normal PMI, no JVD. No pulse deficits. Respiratory: Lungs have equal breath sounds bilaterally, clear to auscultation and percussion. No rales, rhonchi or wheezes noted. No increased work of breathing, no retractions or nasal flaring. Abdomen/GI: Soft, non-tender, with normal bowel sounds. No distension or tympany. No guarding or rebound. No evidence of tenderness throughout. 21:10 MS/ Extremity: Pulses equal, no cyanosis. Neurovascular intact. Full, normal range of motion. 21:10 Skin: Abrasions to bilateral knees. 21:10 Neuro: Orientation: is normal, Gait: not tested. 22:37 ECG was reviewed by the Attending Physician. ms3 Vital Signs: 20:15 BP 114 / 71; Pulse 96; Resp 20; Pulse Ox 90% ; Weight 72.57 kg; Pain 9/10; pf1 21:26 BP 119 / 79; Pulse 93; Resp 18; Pulse Ox 96% on 3 lpm NC; mb9 22:34 BP 108 / 79; Pulse 89; Resp 16; Pulse Ox 95% on 2 lpm NC; mb9 23:53 BP 119 / 86; Pulse 85; Resp 16; Pulse Ox 95% on 3 lpm NC; mb9 20:15 Pain Scale: Adult pf1 NIH Stroke Scale Scores: 20:38 NIHSS Score: 2 mb9 21:10 NIHSS Score: 2 ms3 MDM: 20:31 Patient medically screened. ms3 21:10 Differential diagnosis: CVA, TIA, metabolic disorder, drug effects. ms3 11/02 00:43 Data reviewed: vital signs, nurses notes, and as a result, I will transfer. ms3 11/01 20:34 Order name: Basic Metabolic Panel; Complete Time: 21:39 ms3 11/01 20:34 Order name: CBC with Diff; Complete Time: 21:39 ms3 11/01 20:34 Order name: Hepatic Function; Complete Time: 21:39 ms3 11/01 20:34 Order name: High Sensitivity Troponin; Complete Time: 21:39 ms3 11/01 20:34 Order name: Magnesium; Complete Time: 21:39 ms3 11/01 20:34 Order name: Protime (+inr); Complete Time: 21:39 ms3 11/01 20:34 Order name: Ptt, Activated; Complete Time: 21:39 ms3 11/01 20:34 Order name: UDS; Complete Time: 21:39 ms3 11/01 20:40 Order name: Glucose, Ancillary Testing; Complete Time: 21:39 EDMS 11/01 21:44 Order name: Ethanol; Complete Time: 22:34 ms3 11/02 03:40 Order name: CREATININE WHOLE BLOOD; Complete Time: 03:49 EDMS 11/02 05:46 Order name: CBC with Automated Diff EDMS 11/02 05:58 Order name: Troponin High Sensitivity EDMS 11/02 06:04 Order name: Basic Metabolic Panel EDMS 11/02 06:04 Order name: Lipid Profile EDMS 11/02 06:04 Order name: T4,Total EDMS 11/02 06:04 Order name: Thyroid Stimulating Hormone EDMS 11/02 06:17 Order name: T4 Free EDMS 11/01 20:34 Order name: CT Stroke Brain w/o Contrast; Complete Time: 21:39 ms3 11/01 20:34 Order name: Stroke CXR 1 View; Complete Time: 22:34 ms3 11/01 20:34 Order name: CT Head Angio; Complete Time: 21:39 ms3 11/01 20:34 Order name: CT Neck Angio; Complete Time: 21:39 ms3 11/01 20:34 Order name: EKG; Complete Time: 20:35 ms3 11/01 20:34 Order name: Accucheck; Complete Time: 20:36 ms3 11/01 20:34 Order name: Cardiac monitoring; Complete Time: 20:36 ms3 11/01 20:34 Order name: EKG - Nurse/Tech; Complete Time: 21:26 ms3 11/01 20:34 Order name: IV Saline Lock; Complete Time: : ms3 11/01 20:34 Order name: Labs collected and sent; Complete Time: : ms3 11/01 20:34 Order name: NPO; Complete Time: 20:36 ms3 11/01 20:34 Order name: O2 Per Protocol; Complete Time: 20:36 ms3 11/01 20:34 Order name: O2 Sat Monitoring; Complete Time: 20:36 ms3 11/01 20:34 Order name: Stroke Swallow Screen; Complete Time: : ms3 EC/26 22:37 Rate is 92 beats/min. Rhythm is regular. Left axis deviation noted. [place] interval is ms3 normal. QRS interval is normal. Clinical impression: NSR w/ Non-specific ST/T Changes. Interpreted by me. Reviewed by me. Administered Medications: 23:07 Drug: Tetanus-Diphtheria Toxoid IM Adult 0.5 ml {[employer]: [employer]. Exp: mb9 11/17/2023. Lot #: [id number]. } Route: IM; Site: right deltoid; 23:29 Follow up: Response: No adverse reaction mb9 23:24 Drug: Aspirin PO Chewable Tablet 324 mg Route: PO; mb9 23:29 Follow up: Response: No adverse reaction mb9 23:24 Drug: Clopidogrel PO 75 mg Route: PO; mb9 23:29 Follow up: Response: No adverse reaction mb9 23:24 Drug: HYDROcodone-acetaminophen PO 5 mg-325 mg 1 tabs Route: PO; mb9 23:29 Follow up: Response: No adverse reaction mb9 Disposition Summary: 11/01/22 22:37 Hospitalization Ordered Hospitalization Status: Inpatient Admission ms3 Condition: Stable ms3 Problem: new ms3 Symptoms: are unchanged ms3 Bed/Room Type: Standard ms3 Provider: Raoul Hopper(11/01/22 23:15) la1 Location: Telemetry/MedSurg (Inpatient)(11/02/22 11:16) dw Room Assignment: Count includes the [facility](11/02/22 11:16) dw Diagnosis - Acute respiratory failure with hypoxia ms3 - Ataxia, unspecified ms3 - Hypokalemia ms3 Forms: - Medication Reconciliation Form ms3 - SBAR form ms3 NIH Stroke Scale - NIH Stroke Score Date: 11/01/2022 Time: 20:38 Total Score = 2 10. Dysarthria (speech clarity - read or repeat words) - 0(Normal) 11. Extinction and Inattention (visual/tactile/auditory/spatial/personal) - 0(No abnormality) 1a. Level of Consciousness (LOC) - 0(Alert) 1b. Level of Consciousness (LOC) (Month \T\ Age) - 0(Both) 1c. LOC Commands (Open \T\ Closes Eyes/Line Service Person) - 0(Both) 2. Best Gaze (Lateral Gaze Paresis) - 0(Normal) 3. Visual Field Loss - 0(No visual loss) 4. Facial Palsy - 0(Normal) 5a. Left Arm: Motor (10-second hold) - 0(No drift) 5b. Right Arm: Motor (10-second hold) - 0(No drift) 6a. Left Leg: Motor (5-second hold - always test supine) - 0(No drift) 6b. Right Leg: Motor (5-second hold - always test supine) - 0(No drift) 7. Limb Ataxia (finger/nose \T\ heel/catherine - test with eyes open) - 2(Present in two limbs) 8. Sensory Loss (pinprick arms/legs/face) - 0(Normal) 9. Best Language: Aphasia (description/naming/reading) - 0(No aphasia) Initials: mb9 NIH Stroke Scale - NIH Stroke Score Date: 11/01/2022 Time: 21:10 Total Score = 2 10. Dysarthria (speech clarity - read or repeat words) - 0(Normal) 11. Extinction and Inattention (visual/tactile/auditory/spatial/personal) - 0(No abnormality) 1a. Level of Consciousness (LOC) - 0(Alert) 1b. Level of Consciousness (LOC) (Month \T\ Age) - 0(Both) 1c. LOC Commands (Open \T\ Closes Eyes/Line Service Person) - 0(Both) 2. Best Gaze (Lateral Gaze Paresis) - 0(Normal) 3. Visual Field Loss - 0(No visual loss) 4. Facial Palsy - 0(Normal) 5a. Left Arm: Motor (10-second hold) - 0(No drift) 5b. Right Arm: Motor (10-second hold) - 0(No drift) 6a. Left Leg: Motor (5-second hold - always test supine) - 0(No drift) 6b. Right Leg: Motor (5-second hold - always test supine) - 0(No drift) 7. Limb Ataxia (finger/nose \T\ heel/catherine - test with eyes open) - 2(Present in two limbs) 8. Sensory Loss (pinprick arms/legs/face) - 0(Normal) 9. Best Language: Aphasia (description/naming/reading) - 0(No aphasia) Initials: ms3 Signatures: Dispatcher [employer] EDRekha Camacho, RN RN dw Jose L Gan, SCHOOL COORDINATOR-C SCHOOL COORDINATOR-Cla1 Summer Terrell, RN RN cg Polo Rudolph, DO ms3 Shannon Gunderson, RN RN mb9 Corrections: (The following items were deleted from the chart) 23:15 22:37 Krishan Faith ms3 la1 23:45 22:37 Telemetry/MedSurg (Inpatient) ms3 cg 23:45 22:37 ms3 cg 11/02 11:16 11/01 23:45 [facility] ER HOLD cg dw 11/02 11:16 11/01 23:45 ERHOLD- cg dw
--- NOTE | 2022-11-01 22:38 | ER ---
Nurse's Notes [facility] Name: Maisha Leo Age: 62 yrs Sex: Female : 1960 Arrival Date: 11/01/2022 Time: 20:12 Bed 13 Private MD: Diagnosis: Acute respiratory failure with hypoxia;Ataxia, unspecified;Hypokalemia Presentation: 11/01 20:15 Chief complaint: EMS states: C/O dizziness, weakness, slurred speech,onset unknown time pf1 today and fell while trying to walk with her walker outside today at 1900. [facility] stated patient made two calls today for stroke like symptoms and refused on the 1st call. EMS stated patient 02 saturation was 88% on RA. 20:15 Ebola Screen: Patient negative for fever greater than or equal to 101.5 degrees pf1 Fahrenheit, and additional compatible Ebola Virus Disease symptoms. Initial Sepsis Screen: Does the patient meet any 2 criteria? No. Patient's initial sepsis screen is negative. Does the patient have a suspected source of infection? No. Patient's initial sepsis screen is negative. Risk Assessment: Do you want to hurt yourself or someone else? Patient reports no desire to harm self or others. 20:15 Method Of Arrival: EMS: [facility] pf1 20:15 Acuity: ARTURO 2 pf1 20:41 Coronavirus screen: Vaccine status: Patient reports receiving the 2nd dose of the covid mb9 vaccine. Onset of symptoms was November 01, 2022. Triage Assessment: 11/02 12:06 General: Appears in no apparent distress. db Historical: - Allergies: 11/01 20:39 PENICILLINS; mb9 - Home Meds: 20:39 Albuterol Inhl PRN [Active]; amlodipine 10 mg tablet daily [Active]; cyclobenzaprine 10 mb9 mg Oral tablet 1 tab 2 times per day [Active]; Keppra 500 mg Oral tablet [Active]; lamotrigine 25 mg Oral tablet daily [Active]; gabapentin 600 mg Oral tablet 1 tab 3 times per day [Active]; - PMHx: 20:39 Bipolar disorder; ADD/ADHD; Seizures; Cerebrovascular accident; Cirrhosis; COPD; mb9 Fibromyalgia; Myocardial infarction; Hypothyroidism; Hypertension; CVA; Left sided weakness; - PSHx: 20:39 right big toe; mb9 - Immunization history:: Adult Immunizations up to date. - Social history:: Smoking status: Patient reports the use of cigarette tobacco products, smokes one pack cigarettes per day. Screenin:37 [facility] ED Fall Risk Assessment (Adult) History of falling in the last 3 months, mb9 including since admission Yes- physiologic fall (2 pts) Confusion or Disorientation No (0 pts) Intoxicated or Sedated No (0 pts) Impaired Gait Yes (1 pt) Mobility Assist Device Used No (0 pt) Altered Elimination No (0 pt) Score/Fall Risk Level 3 or more points = High Risk Oriented to surroundings, Maintained a safe environment, Educated pt \T\ family on fall prevention, incl call for assistance when getting out of bed. Abuse screen: Denies threats or abuse. Nutritional screening: No deficits noted. Tuberculosis screening: No symptoms or risk factors identified. 20:38 VAN Screening: Arm Drift: Patient shows no arm weakness. Patient is VAN negative. mb9 Assessment: 20:36 Reassessment: PT TAKEN TO CT VIA STRETCHER WITH RN. mb9 20:41 General: Appears in no apparent distress. Behavior is calm, cooperative, appropriate mb9 for age. Pain: Denies pain. Neuro: Amado Agitation-Sedation Scale (RASS): 0 - Alert and Calm Level of Consciousness is awake, alert, obeys commands, Oriented to person, place, time, situation, Appropriate for age Triage Licensed Practical Nurse are weak bilaterally Moves all extremities. Gait is unsteady, Speech is slurred, Facial symmetry appears normal, Pupils are PERRLA, Intact. Cardiovascular: Patient's skin is warm and dry. Respiratory: Airway is patent Respiratory effort is even, unlabored, Respiratory pattern is regular, symmetrical, Breath sounds are clear bilaterally. GI: Abdomen is round non-distended, Bowel sounds present X 4 quads. Abd is soft and non tender X 4 quads. Derm: Skin is pink, warm \T\ dry. Musculoskeletal: Range of motion: intact in all extremities. 22:34 Reassessment: No changes from previously documented assessment. Patient and/or family mb9 updated on plan of care and expected duration. Pain level reassessed. Patient is alert, oriented x 3, equal unlabored respirations, skin warm/dry/pink. 23:53 Reassessment: No changes from previously documented assessment. Patient and/or family mb9 updated on plan of care and expected duration. Pain level reassessed. Patient is alert, oriented x 3, equal unlabored respirations, skin warm/dry/pink. 11/02 07:05 Reassessment: Patient appears in no apparent distress at this time. Patient and/or db family updated on plan of care and expected duration. Pain level reassessed. Patient is alert, oriented x 3, equal unlabored respirations, skin warm/dry/pink. General: Appears in no apparent distress. comfortable. Vital Signs: 11/01 20:15 BP 114 / 71; Pulse 96; Resp 20; Pulse Ox 90% ; Weight 72.57 kg; Pain 9/10; pf1 21:26 BP 119 / 79; Pulse 93; Resp 18; Pulse Ox 96% on 3 lpm NC; mb9 22:34 BP 108 / 79; Pulse 89; Resp 16; Pulse Ox 95% on 2 lpm NC; mb9 23:53 BP 119 / 86; Pulse 85; Resp 16; Pulse Ox 95% on 3 lpm NC; mb9 20:15 Pain Scale: Adult pf1 NIH Stroke Scale Scores: 20:38 NIHSS Score: 2 mb9 21:10 NIHSS Score: 2 ms3 ED Course: 20:21 Patient arrived in ED. as7 20:22 Polo Rudolph DO is Attending Physician. ms3 20:35 Shannon Gunderson, AZIZA is Primary Nurse. mb9 20:36 Arm band placed on. mb9 20:36 Inserted saline lock: 20 gauge in left hand, using aseptic technique. mb9 20:37 Triage completed. pf1 20:38 Placed in gown. Bed in low position. Call light in reach. Side rails up X 1. Client mb9 placed on continuous cardiac and pulse oximetry monitoring. NIBP monitoring applied. compliance lead on. 20:38 No provider procedures requiring assistance completed. mb9 20:39 CT Stroke Brain w/o Contrast In Process Unspecified. EDMS 20:47 CT Head Angio In Process Unspecified. EDMS 20:47 CT Neck Angio In Process Unspecified. EDMS 20:50 EKG done, by ED staff, reviewed by Polo Rudolph DO. mb9 21:39 Stroke CXR 1 View In Process Unspecified. EDMS 22:37 Krishan Faith MD is Hospitalizing Provider. ms3 23:15 Raoul Hopper MD is Hospitalizing Provider. la1 23:53 Patient admitted, IV remains in place. mb9 Administered Medications: 23:07 Drug: Tetanus-Diphtheria Toxoid IM Adult 0.5 ml {[employer]: [employer]. Exp: mb9 11/17/2023. Lot #: [id number]. } Route: IM; Site: right deltoid; 23:29 Follow up: Response: No adverse reaction mb9 23:24 Drug: Aspirin PO Chewable Tablet 324 mg Route: PO; mb9 23:29 Follow up: Response: No adverse reaction mb9 23:24 Drug: Clopidogrel PO 75 mg Route: PO; mb9 23:29 Follow up: Response: No adverse reaction mb9 23:24 Drug: HYDROcodone-acetaminophen PO 5 mg-325 mg 1 tabs Route: PO; mb9 23:29 Follow up: Response: No adverse reaction mb9 Medication: 20:38 VIS not applicable for this client. mb9 Outcome: 22:37 Decision to Hospitalize by Provider. ms3 11/02 07:30 Admitted to ER Hold. [facility] for further documentation. db Condition: stable Instructed on the need for admit. 12:01 Patient left the ED. hb NIH Stroke Scale - NIH Stroke Score Date: 11/01/2022 Time: 20:38 Total Score = 2 10. Dysarthria (speech clarity - read or repeat words) - 0(Normal) 11. Extinction and Inattention (visual/tactile/auditory/spatial/personal) - 0(No abnormality) 1a. Level of Consciousness (LOC) - 0(Alert) 1b. Level of Consciousness (LOC) (Month \T\ Age) - 0(Both) 1c. LOC Commands (Open \T\ Closes Eyes/Car Tracer) - 0(Both) 2. Best Gaze (Lateral Gaze Paresis) - 0(Normal) 3. Visual Field Loss - 0(No visual loss) 4. Facial Palsy - 0(Normal) 5a. Left Arm: Motor (10-second hold) - 0(No drift) 5b. Right Arm: Motor (10-second hold) - 0(No drift) 6a. Left Leg: Motor (5-second hold - always test supine) - 0(No drift) 6b. Right Leg: Motor (5-second hold - always test supine) - 0(No drift) 7. Limb Ataxia (finger/nose \T\ heel/catherine - test with eyes open) - 2(Present in two limbs) 8. Sensory Loss (pinprick arms/legs/face) - 0(Normal) 9. Best Language: Aphasia (description/naming/reading) - 0(No aphasia) Initials: mb9 NIH Stroke Scale - NIH Stroke Score Date: 11/01/2022 Time: 21:10 Total Score = 2 10. Dysarthria (speech clarity - read or repeat words) - 0(Normal) 11. Extinction and Inattention (visual/tactile/auditory/spatial/personal) - 0(No abnormality) 1a. Level of Consciousness (LOC) - 0(Alert) 1b. Level of Consciousness (LOC) (Month \T\ Age) - 0(Both) 1c. LOC Commands (Open \T\ Closes Eyes/Car Tracer) - 0(Both) 2. Best Gaze (Lateral Gaze Paresis) - 0(Normal) 3. Visual Field Loss - 0(No visual loss) 4. Facial Palsy - 0(Normal) 5a. Left Arm: Motor (10-second hold) - 0(No drift) 5b. Right Arm: Motor (10-second hold) - 0(No drift) 6a. Left Leg: Motor (5-second hold - always test supine) - 0(No drift) 6b. Right Leg: Motor (5-second hold - always test supine) - 0(No drift) 7. Limb Ataxia (finger/nose \T\ heel/catherine - test with eyes open) - 2(Present in two limbs) 8. Sensory Loss (pinprick arms/legs/face) - 0(Normal) 9. Best Language: Aphasia (description/naming/reading) - 0(No aphasia) Initials: ms3 Signatures: Dispatcher [employer] EDMS Jose L Gan, CHIEF PROJECTIONIST-C CHIEF PROJECTIONIST-Cla1 Yvette Jiménez, RN RN Polo Conteh, DO ms3 Alysia Soto, RN RN Shanonn Rush RN RN mb9 Radha Woodward RN RN pf1 Senkyrik, Radha as7
[2022-11-01] MEDS ORDERED: TETANUS & DIPHTHERIA TOX,ADULT 0.5 ML VIAL ONE (23:05)
[2022-11-01] MEDS ORDERED: ASPIRIN 81 MG CHEWABLE TABLET ONE (23:24)
[2022-11-01] MEDS ORDERED: HYDROCODONE/APAP 5/325 MG TAB ONE (23:25)
[2022-11-01] MEDS ORDERED: CLOPIDOGREL 75 MG TABLET ONE (23:25)
--- NOTE | 2022-11-01 23:36 | P.HP ---
Certification for Inpatient Patient admitted to: Observation With expected LOS: <2 Midnights Patient will require the following post-hospital care: None Practitioner: I am a practitioner with admitting privileges, knowledge of patient current condition, hospital course, and medical plan of care. Services: Services provided to patient in accordance with Admission requirements found in Title 42 Section 412.3 of the Code of Federal Regulations Patient History Date of Service: 11/01/22 Reason for admission: Slurred speech, ataxia History of Present Illness: 62-year-old female with history of CVA, BPD, COPD previously on home oxygen, CAD, hypertension, hypothyroidism presents emergency department chief complaint of fall/syncope. She reports that around 1930 this evening she was walking when she became suddenly dizzy and "fell out". She cannot ascertain whether or not she lost consciousness, she was helped up by somebody else at her home and EMS was called. Upon arrival to the ED, stroke was called, CT head without contrast was performed which was negative for acute findings, she also had CTA of the head and neck which were negative for occlusive findings, her labs were significant for mild hypokalemia potassium 3.2 T. bili 1.1D bili 0.4 AST 82 she also was positive for cocaine she does admit using cocaine greater than 24 hours ago. Her NIH was a 3 she has slurred speech, ataxia in 2 limbsthe upper limbs with [id number]. Sensation is intact. She gave multiple conflicting times as far as onset of symptoms to multiple different staff at the ED for this reason she has not a candidate for TNK as she is likely outside the window. I discussed the case with neurology as we do not have MRI available, we discussed that there would likely be no interventions that took place at a tertiary center which she could benefit from MRI, patient was offered transfer to tertiary center for MRI services but she declined, wants to stay here and be treated. Will admit for ataxia, slurred speech. She was also noted to be mildly hypoxic on room air she reports she was previously on home oxygen for COPD but for last 1 month she has been letting her friend use her oxygen. Allergies Penicillins Allergy (Intermediate, Verified 04/18/19 23:29) Anaphylaxis Home Medications: Albuterol Sulfate [Albuterol Sulfate 0.083% Neb Soln] 2.5 mg IH Q6HP PRN 09/03/22 Albuterol Sulfate [Ventolin Hfa] 1 puff IH Q6HP PRN 09/03/22 Amitriptyline [Elavil*] 50 mg PO BEDTIME 09/03/22 Amlodipine [Norvasc*] 10 mg PO DAILY 09/03/22 Gabapentin 600 mg PO TID 09/03/22 Ipratropium/Albuterol Sulfate [Combivent Respimat 20-100 Mcg] 4 gm IH BID 09/03/22 Levothyroxine [Synthroid*] 100 mcg PO [id number] 09/03/22 Lisinopril [Zestril] 40 mg PO DAILY 09/03/22 Meloxicam [Mobic*] 7.5 mg PO BID PRN 09/03/22 Trazodone HCl 100 mg PO BEDTIME PRN 09/03/22 Lactulose [Cephulac*] 15 ml PO BID 30 Days #900 ml 09/07/22 Cyclobenzaprine [Flexeril*] 1 tab PO BIDP PRN 10/27/22 Lamotrigine [Lamictal] 25 mg PO DAILY 10/27/22 levETIRAcetam [Keppra*] 1 tab PO BID 10/27/22 Ciprofloxacin HCl [Cipro 500 MG Tablet] 500 mg PO BID #10 tab 10/28/22 Hydrocodone 5/APAP 325 [[place] 5/325] 1 tab PO Q6H PRN #12 tab 10/28/22 - Past Medical/Surgical History Diabetic: No -: Hypothyroidism -: HTN -: Anxiety -: Seizures -: HX CO x2 -: HX CVA - Left side wekness -: Osteoarthritis -: Hepatitis C -: liver cirrhosis -: Geovanny's paralysis -: Neck Surgery -: Tubal Ligation Psychosocial/ Personal History: Patient was at home with family - Family History Mother -: Heart disease, Diabetes Father -: Other (see notes) Notes: Alzeimers Brother -: Other (see notes) Notes: COPD, Bone Cancer, Back Surgery - Social History Smoking Status: Current every day smoker Counseled patient to stop smoking for: less than 10 minutes Alcohol use: Yes CD- Drugs: No Caffeine use: Yes Place of Residence: Home Review of Systems 10-point ROS is otherwise unremarkable Neurological: Change in Speech (Slurred speech), Other (Dizziness) Physical Examination - Physical Exam General: Alert, In no apparent distress, Oriented x3 HEENT: Atraumatic, PERRLA, Mucous membr. moist/pink, EOMI, Sclerae nonicteric Neck: Supple, 2+ carotid pulse no bruit, No LAD, Without JVD or thyroid abn ormality Respiratory: Clear to auscultation bilaterally, Normal air movement Cardiovascular: Regular rate/rhythm, Normal S1 S2 Gastrointestinal: Normal bowel sounds, No tenderness Musculoskeletal: No tenderness Integumentary: No rashes Neurological: Normal gait, Normal speech, Normal affect, Other (NIH-3), Abnormal strength (Bilateral lower extremity weakness, ), Abnormal sensation - Studies Laboratory Data (last 24 hrs) 11/01/22 20:40: PT 13.1 H, INR 1.19, APTT 36.4 11/01/22 20:40: WBC 4.40, Hgb 13.7, Hct 39.8, Plt Count 131 L 11/01/22 20:40: Sodium 136, Potassium 3.2 L, BUN 13, Creatinine 1.08 H, Glucose 90, Magnesium 2.0, Total Bilirubin 1.1 H, AST 82 H, ALT 46, Alkaline Phosphatase 73 Assessment and Plan - Plan Assessment: Slurred speech, ataxia, dizziness rule out CVA-history of CVA/CAD COPD on chronic home O2 History of cirrhosis of liver Bipolar disorder Hypertension Hypothyroidism Cocaine abuse Tobacco abuse Plan: Slurred speech, ataxia, dizziness rule out CVA-history of CVA/CAD Discussed case with neurology recommendations for aspirin, Plavix, statin, folic acid. MRI stroke protocol ordered. Speech and physical therapy consults in place. Lipid panel in the morning. COPD on chronic home O2 Patient previously on home oxygen, she reports she has been without it for 1 month but she is letting her friend use it. Counseled on importance of compliance with her home oxygen regimen. As needed nebulizer treatments. History of cirrhosis of liver Stable. Bipolar disorder Hypertension Hypothyroidism Continue home medications. Cocaine abuse Tobacco abuse Counseled on importance of cessation of recreational drugs, tobacco especially given possible CVA/history of CVA and CAD. DVT PPX: Lovenox Code status: Full Discharge Plan: Home Plan to discharge in: 24 Hours - Advance Directives Does patient have a Living Will: No Does patient have a Durable POA for Healthcare: No - Code Status/Comfort Care Code Status Assessed: Yes (Full code) Critical Care: No Time Spent Managing Pts Care (In Minutes): 55
[2022-11-01 23:55] VITALS: BMI 25.7
[2022-11-02] MEDS ORDERED: ACETAMINOPHEN 500 MG TAB PO PRN (03:10)
[2022-11-02] MEDS ORDERED: ALBUTEROL 2.5 MG/3 ML NEB SOL NEB PRN (03:10)
[2022-11-02] MEDS ORDERED: ONDANSETRON 4 MG/2 ML VIAL IV PRN (03:10)
[2022-11-02] MEDS: NA CHLORIDE 0.9% 1,000 ML IV SCH ×2 (03:10→16:32)
[2022-11-02] MEDS ORDERED: HYDROCODONE/APAP 5/325 MG TAB ONE (04:18)
[2022-11-02] MEDS: HYDROCODONE/APAP 5/325 MG TAB PO PRN ×3 (04:29→20:43)
[2022-11-02 05:42] LABS: Absolute Lymphocytes (CBC) 1.5 K/uL (0.7-4.9); Hematocrit 40.3 % (36.0-45.0); MCV 92.2 fL (80-100); RBC Red Blood Cell Count 4.37 M/uL (3.86-4.86)
[2022-11-02 06:03] LABS: Potassium 3.4 mEq/L (3.5-5.1); T4,Total 4.2 ug/dL (4.8-13.9)
[2022-11-02] MEDS: ASPIRIN EC 81 MG TAB PO SCH (09:00)
[2022-11-02] MEDS: CLOPIDOGREL 75 MG TABLET PO SCH (09:00)
[2022-11-02] MEDS: ENOXAPARIN 40 MG/0.4 ML SQ SCH (09:00)
[2022-11-02] MEDS ORDERED: POTASSIUM CL SA 10 MEQ TAB PO ONE (17:27)
[2022-11-02] MEDS: ATORVASTATIN 20 MG TAB PO SCH (19:54)
--- NOTE | 2022-11-02 21:42 | CON ---
Reason For Consultation: Consultation called because of possible stroke. History Of Present Illness: Ms. Leo is a 62-year-old, right-handed, patient with multipl e medical problems including prior stroke, chronic obstructive pulmonary disease, coronary artery dis ease, hypertension, hypothyroidism, and multiple admissions to [facility] with cocaine use, who comes to [facility] around 7:30 last evening with sudden onset dizziness and falling out . It is unclear if she lost consciousness. She was helped up by a bystander and [facility] brought to [facility] where she was out of the possible window for TNKs as it is uncl ear when her event began. Her CT angiogram head and neck were negative and as the events were likely within 24 hours and no MRIs available at [facility], she was offered the opportunity to go to [facility] in [place]. Furthermore, she did have with slurred speech, ataxia in 2 limbs and f [id number] and possibly would benefit from aggressive treatment. However, the patient refused tra nsfer and wanted to remain local for her treatment. Review of the chart does note that the patient h as been in hospital many, many times and has had around [address] scans many of the head, abdom en for trauma and she has had multiple admissions where she is positive for cocaine, including this o ne. Past Medical History: As noted above. She also was diagnosed with seizures, anxiety, stroke with le ft-sided weakness, osteoarthritis, hepatitis C, and liver cirrhosis. Allergies: PENICILLIN. Medications: Tylenol 500 mg every 4 hours, [place] 5/325 every 6 hours, albuterol nebulizer 2.5 mg kaitlin ry 6 hours, aspirin 162 mg daily, Lipitor 40 mg at bedtime, Plavix 75 mg daily, Lovenox 40 mg subcuta neously daily, Synthroid 0.125 mg daily, Zofran 4 mg every 6 hours. Past Surgical History: Neck surgery, tubal ligation. Social History: Patient drinks alcohol regularly and admits to using cocaine regularly. She also sm okes tobacco cigarettes daily. Family History: Heart disease, diabetes in mother. Alzheimer's in father. Brother with COPD, colon cancer. Review of Systems: She notes slurred speech, which has been going on for quite a bit. She does have poor dentition and admits to difficulty ambulating, although she typically can walk she said about half a block with a R ollator, but now more unsteady and unable to ambulate any significant distances. Otherwise, she renae es any fevers or chills. She has mild myalgias, arthralgias. No rash. No headache. No weight leon ge. Physical Examination: Vital Signs: Blood pressure 139/76, pulse 79, respiratory rate 16, temperature 97.8, oxygen saturati on 93% on room air. General: Ms. Leo is resting in her hospital bed. She is in no significant distress. HEENT: She has very poor dentition. She otherwise is normocephalic, appears atraumatic. Sclerae ap pear anicteric. Oropharynx moist. Neck: Supple. Chest: Good air movement. Abdomen: Soft. Extremities: Show no significant edema or cyanosis. Neurological: She can follow simple commands. Cranial nerves some decrease in the left nasolabial f old with fair excursions, otherwise unremarkable. Motor examination: Left upper extremity around 3+ distally to 4 proximally. On the right, 4 proximally and distally and in the lower extremities, 4 p roximally and distally. Decreased sensation in the left compared to the right upper extremity and st ocking glove in the lower extremities. Slow in terms of coordination in the upper and lower extremit ies, but no obvious dysmetria noted in the upper extremities. She will be ambulated with gait belt w [facility] therapists. Laboratory Studies: Complete blood count with differential is essentially unremarkable. INR 1.19. She has mild hypokalemia initially 3.2, now 3.4; glucose 116. AST elevated to 82 with ALT 46 and alk kimberly phosphatase 73 and normal. TSH elevated to 29, which is more than 7 times the upper limit. Fr ee T4 is at 0.47 and T4 is low at 4.2. She is positive for cocaine. Her head CT scan shows no acute ischemic or hemorrhagic change. CT angiogram of the head and neck showed no large vessel occlusion. Assessment: Ms. Leo is a 62-year-old patient with severe hypothyroidism and her thyroid medication require adjustment, likely contributing factor is slurred speech and unsteady gait and confusion. S he also is positive for cocaine. She does not have any hemorrhagic or ischemic change on head CT sca n. Prior admission, she was also positive for cocaine in August of this year. Patient does admit to drinking alcohol on a regular basis and smoking regularly. They may also be contributing factors. A lcohol toxicity, however, was not seen on her laboratory studies. Alcohol was less than 10. Plan: 1.Adjust thyroid medication as appropriate. 2.She may benefit from aggressive physical therapy. If possible, inpatient rehabilitation may be he lpful. 3.Patient is strongly advised to stop using cocaine, stop smoking cigarettes, and drinking alcohol. 4.Urinalysis is not documented. May have to rule out a urinary tract infection. 5.Patient will be followed while in hospital. MICHELLE/JONATHAN Voice ID: [id number] Report ID: [id number]
--- NOTE | 2022-11-02 22:32 | P.PN ---
Date of Service: 11/02/22 Subjective Patient continues with slurred speech. Patient still very lethargic and weak. Will encourage patient to get out of bed and ambulate. Physical Examination - Physical Exam General: Alert, In no apparent distress, Oriented x3 Respiratory: Clear to auscultation bilaterally, Normal air movement Cardiovascular: Regular rate/rhythm, Normal S1 S2 Gastrointestinal: Normal bowel sounds, No tenderness Musculoskeletal: No tenderness; generalized weakness Neurological: No focal deficits Assessment and Plan - Plan Assessment: Slurred speech, ataxia, dizziness rule out CVA-history of CVA/CAD COPD on chronic home O2 History of cirrhosis of liver Bipolar disorder Hypertension Hypothyroidism Cocaine abuse Tobacco abuse Plan: 1. MRI of the brain 2. Antiplatelet and statin therapy 3. Lipid profile 4. Physical therapy and speech therapy consultation 5. Thyroid supplement 6. Neurochecks every 4 hours 7. Reassess stroke scale 8. O2 per protocol 9. Counseled regarding substance abuse 10. GI and DVT prophylaxis - Advance Directives Does patient have a Living Will: No Does patient have a Durable POA for Healthcare: No - Code Status/Comfort Care Code Status Assessed: Yes (Full code) Critical Care: No Time Spent Managing Pts Care (In Minutes): 55
[2022-11-02] MEDS: TRAZODONE 50 MG TABLET PO PRN (22:39)
[2022-11-03] MEDS: HYDROCODONE/APAP 5/325 MG TAB PO PRN ×4 (03:55→21:38)
[2022-11-03] MEDS: NA CHLORIDE 0.9% 1,000 ML IV SCH (05:39)
[2022-11-03] MEDS: LEVOTHYROXINE SOD 0.125 MG TAB PO SCH (05:39)
[2022-11-03 07:15] LABS: Absolute Lymphocytes (CBC) 0.6 K/uL (0.7-4.9); Hematocrit 37.2 % (36.0-45.0); Lymphocytes % 19.7 % (15.3-44.8); MCV 91.9 fL (80-100); RBC Red Blood Cell Count 4.05 M/uL (3.86-4.86)
[2022-11-03 07:26] LABS: Albumin 2.3 g/dL (3.4-5.0); Bilirubin Direct 0.2 mg/dL (0-0.2); Bilirubin Indirect, Calculated 0.3 mg/dL (0.2-0.8); Bilirubin Total 0.5 mg/dL (0.2-1.0); Potassium 3.9 mEq/L (3.5-5.1); Protein, Total 6.6 g/dL (6.4-8.2)
--- NOTE | 2022-11-03 07:29 | EKG ---
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
[2022-11-03] MEDS: ENOXAPARIN 40 MG/0.4 ML SQ SCH (09:10)
[2022-11-03] MEDS: ASPIRIN EC 81 MG TAB PO SCH (09:10)
[2022-11-03] MEDS: CLOPIDOGREL 75 MG TABLET PO SCH (09:10)
[2022-11-03] MEDS ORDERED: POTASSIUM CL SA 10 MEQ TAB PO ONE (09:27)
[2022-11-03] MEDS: TRAZODONE 50 MG TABLET PO PRN (20:17)
[2022-11-03] MEDS: ATORVASTATIN 20 MG TAB PO SCH (20:18)
[2022-11-03 21:56] VITALS: O2SAT 96
[2022-11-04] MEDS: HYDROCODONE/APAP 5/325 MG TAB PO PRN ×2 (06:08→12:19)
[2022-11-04] MEDS: LEVOTHYROXINE SOD 0.125 MG TAB PO SCH (06:08)
[2022-11-04 06:25] LABS: Potassium 3.9 mEq/L (3.5-5.1)
--- NOTE | 2022-11-04 09:10 | P.PN ---
Date of Service: 11/03/22 Subjective Patient is doing much better. Patient's clinical symptoms are improving. Continue with therapy and out of bed and ambulating. If speech is not improving and weakness continues to be significant patient may need to go to inpatient rehab. Appreciate nephrology consultation. Physical Examination - Physical Exam General: Alert, In no apparent distress, Oriented x3 Respiratory: Clear to auscultation bilaterally, Normal air movement Cardiovascular: Regular rate/rhythm, Normal S1 S2 Gastrointestinal: Normal bowel sounds, No tenderness Musculoskeletal: No tenderness; generalized weakness Neurological: No focal deficits Assessment and Plan - Plan Assessment: Slurred speech, ataxia, dizziness rule out CVA-history of CVA/CAD COPD on chronic home O2 History of cirrhosis of liver Bipolar disorder Hypertension Hypothyroidism Cocaine abuse Tobacco abuse Plan: 1. MRI of the brain 2. Antiplatelet and statin therapy 3. Lipid profile 4. Physical therapy and speech therapy consultation 5. Thyroid supplement 6. Neurochecks every 4 hours 7. Reassess stroke scale 8. O2 per protocol 9. Counseled regarding substance abuse 10. GI and DVT prophylaxis - Advance Directives Does patient have a Living Will: No Does patient have a Durable POA for Healthcare: No - Code Status/Comfort Care Code Status Assessed: Yes (Full code) Critical Care: No Time Spent Managing Pts Care (In Minutes): 55
[2022-11-04] MEDS: ENOXAPARIN 40 MG/0.4 ML SQ SCH (09:12)
[2022-11-04] MEDS: CLOPIDOGREL 75 MG TABLET PO SCH (09:12)
[2022-11-04] MEDS: ASPIRIN EC 81 MG TAB PO SCH (09:12)
[2022-11-04] MEDS ORDERED: LORazepam 2 MG/ML VIAL IV ONE (10:05)
--- NOTE | 2022-11-04 11:25 | RAD REPORT ---
EXAM DESCRIPTION: MRI - Brain Wo Cont - 11/04/2022 11:13 am CLINICAL HISTORY: Slurred speech COMPARISON: August 2022 MRI brain TECHNIQUE: Axial, sagittal, and coronal magnetic resonance images of the brain were obtained. FINDINGS: Moderate signal within periventricular, deep and subcortical white matter without signific ant change Diffusion-weighted/ADC mapping does not reveal evidence of acute infarction. The ventricles are normal caliber. An extra-axial fluid collection is not noted. Fluid within the sinuses/mastoids is not seen IMPRESSION: Moderate signal within periventricular, deep and subcortical white matter may be seconda ry to ischemic changes secondary to small vessel disease. A demyelinating process such as multiple sc lerosis can also have this appearance
[2022-11-04] MEDS ORDERED: POTASSIUM CL SA 10 MEQ TAB PO ONE (12:00)
[2022-11-04 15:29] VITALS: BP 107/76; TEMP 98.3
[2022-11-04] MEDS: ATORVASTATIN 20 MG TAB PO SCH (19:56)
== END 2022-11-04 20:06 | disposition home or self-care (01) ==
LOC: ER 20:12 → ERHOLD 23:17 → 2ND 11-02 11:24
PROVIDERS: ADMIT Hospitalist; ATTEND Hospitalist
DX: R47.81 Slurred speech (principal); R27.0 Ataxia, unspecified; R42 Dizziness and giddiness; J44.9 Chronic obstructive pulmonary disease, unspecified; K74.60 Unspecified cirrhosis of liver; F31.9 Bipolar disorder, unspecified; I10 Essential (primary) hypertension; E03.9 Hypothyroidism, unspecified; F14.10 Cocaine abuse, uncomplicated; F17.210 Nicotine dependence, cigarettes, uncomplicated; Z72.0 Tobacco use; Z71.51 Drug abuse counseling and surveillance of drug abuser; Z86.73 Personal history of transient ischemic attack (TIA), and cerebral infarction without residual deficits; Z88.0 Allergy status to penicillin; Z99.81 Dependence on supplemental oxygen
CPT/HCPCS: 93005; 85025 ×3; 80048 ×4; 36415 ×3; 83735; 85610; 80061; 82565; 82947; 80076 ×2; 85730; 84436; 84443; 84484 ×3; 84439; 80307; 70496; 70498; 70450; 71045; 90471; 70551; 90714; 92523; 97116; 97161; 97530; 99285; Q9967; J1650 ×2; G0378 ×5; J7030 ×3; G0480

== ENCOUNTER 2022-11-13 21:49 | Emergency (ER) | payer OTHER ==
--- OUTSIDE RECORDS SUMMARY | 2022-11-13 21:53 | XMS REPORT | Continuity of Care Document ---
:1960 Author Organization [facility] t Address [address] [facility] [address] [place] [address] Care Team Providers Name Role Phone AL AGUILAR Primary Care Physician Unavailable TAVO VIZCAINO Attending Clinician Unavailable Doctor Unassigned, [place] Attending Clinician Unavailable Al Aguilar MD Attending Clinician Payers Payer Name Policy Type Policy Number Effective Date [facility] Date [facility] [id number] 2016 00:00:00 PLUS Problems Condition Condition Condition Status Onset Resolution Last Treating Co mments Source Name Details Category Date Date Treatment Clinician Date Essential Essential Disease Active Uni vers hypertensi hypertensi 7-26 it y of on on 00:00: [address] Obesity Obesity Disease Active Univers (BMI (BMI 5-25 ity of 30-39.9) 30-39.9) 00:00: [address] [place] [address] Osteomyeli Osteomyeli Disease Active U shelley tis tis 5-24 ity of 00:00: [address] Positive Positive Disease Active 2015-06 Unive rs serology serology 1-15 ity of for for 00:00: [place] syphilis syphilis 00 Medica Branch 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 1-15 it y of ve ve 00:00: [address] Trichomoni Trichomoni Disease Active 2015-06 U [place]ley asis asis 0-26 ity of 00:00: [address] Tobacco Tobacco Disease Active 2015-06 Univers [...] nivers openia openia 6-17 ity of 00:00: [place] [facility] Alcohol Alcohol Disease Active Univers use use 6-17 ity of 00:00: [place] [facility] Thrombocyt Thrombocyt Disease Active U nivers openia openia 6-17 ity of 00:00: [place] [facility] Cervical Cervical Disease Active Unive [...] (hyperlipi (hyperlipi it y of demia) demia) [facility] Hepatic Hepatic Disease Active Univers cirrhosis cirrhosis ity of [facility] Acquired Acquired Disease Active Unive rs hypothyroi hypothyroi it y of dism dism [facility] Allergies, Adverse Reactions, Alerts Allergy Allergy Status Severity Reaction(s) Onset Inactive Treating Comm ents Source Name Type Date Date Clinician Penicill Propensi Active Rash 2006- Univer s ins ty to 02-04 ity of adverse 00:00: [place] reaction 00 [facility] PENICILL Drug Active Rash Univers INS Class 8- ity of 00:00: [place] 00 [facility] Penicill Propensi Active Rash 2006- Univer s ins ty to 02-04 ity of adverse 00:00: [place] reaction 00 [facility] Social History Social Habit Start Date Stop Date Quantity Comments Source History of tobacco Cigarette Smoker University of use [facility] Alcohol intake 2019-05-22 2019-05-22 .86 /d University of 00:00:00 00:00:00 [facility] Tobacco use and 2015-08-01 2015-08-01 Smokeless Universit y of exposure 00:00:00 00:00:00 tobacco non-user [facility] C[facility] smoked 2015-08-01 2015-08-01 Univers ity of current (pack per 00:00:00 00:00:00 [facility] ) - Reported Branch Cigarette 2015-08-01 2015-08-01 University of pack-years 00:00:00 00:00:00 [facility] Tobacco Comment 2014-12-26 2014-12-26 smokes 6 cig/day Uni versity of 00:00:00 00:00:00 [facility] Sex [birth year] At [birth year] Universit y of 00:00:00 00:00:00 [facility] Smoking Status Start Date Stop Date Source Smokes tobacco daily 2015-08-01 00:00:00 Univers ity of [facility] Medications Ordered Filled Start Stop Current Ordering Indication Dosage Frequency Signature Comments Components Source Medication Medication Date Date Medication? Clinician (SIG) Name Name gabapentin 2018-06 Yes [id number] 400mg Take 1 Univers (NEURONTIN) 2-14 capsule by it y of 400 mg 00:00: mouth 3 [place] capsule 00 (three) Medical times [place] daily. cyclobenzap 2018-06 Yes [id number] 10mg Take 1 Univers rine 10 mg 2-14 tablet by ity of tablet 00:00: mouth 3 [place] 00 (three) Medical times [place] daily. amLODIPine Yes [id number] 5mg Take 1 U nivers 5 mg tablet 7-26 tablet by ity of 00:00: mouth 00 daily. Medical Branch cyclobenzap Yes [id number] 10mg Take 1 Univers rine 10 mg 7-26 tablet by ity of tablet 00:00: mouth (three) Medical times Branch daily as needed for Muscle Spasms. gabapentin 2018- Yes [id number] 400mg Take 1 Univers 400 mg 7-26 capsule by ity of capsule 00:00: mouth (three) Medical times Branch daily. amLODIPine Yes [id number] 5mg Take 1 U nivers 5 mg tablet 7-26 tablet by ity of 00:00: mouth 00 daily. Medical Branch cyclobenzap Yes [id number] 10mg Take 1 Univers rine 10 mg 7-26 tablet by ity of tablet 00:00: mouth (three) Medical times Branch daily as needed for Muscle Spasms. gabapentin 2018- Yes [id number] 400mg Take 1 Univers 400 mg 7-26 capsule by ity of capsule 00:00: mouth (three) Medical times Branch daily. amLODIPine Yes [id number] 5mg Take 1 U nivers 5 mg tablet 7-26 tablet by ity of 00:00: mouth 00 daily. Medical Branch amLODIPine 2018-0 Yes [id number] 5mg Take 1 U nivers 5 mg tablet 7-26 tablet by ity of 00:00: mouth 00 daily. Medical Branch cyclobenzap Yes [id number] 10mg Take 1 Univers rine 10 mg 7-26 tablet by ity of tablet 00:00: mouth (three) Medical times Branch daily as needed for Muscle Spasms. gabapentin 2018- Yes [id number] 400mg Take 1 Univers 400 mg 7-26 [...] [place] 00 TWICE A Medical DAY Branch AMLODIPINE [...] MOUTH [place] 00 EVERY DAY Medical Branch AMLODIPINE 2018-0 2019- No TAKE 1 Univ ers 5 mg tablet 5-07 07-26 TABLET BY it y of 00:00: 00:00 MOUTH [place] 00 :00 EVERY DAY Medical Branch METOPROLOL 2018-0 Yes TAKE 1 Unive rs TARTRATE 50 3-12 TABLET BY ity of mg tablet 00:00: MOUTH [place] 00 TWICE A Medical DAY Branch METOPROLOL 2018-0 2019- No TAKE 1 Univ ers TARTRATE 50 3-12 07-26 TABLET BY it y of mg tablet 00:00: 00:00 MOUTH [place] 00 :00 TWICE A Medical DAY Branch GABAPENTIN 2017- Yes TAKE 3 Unive rs 300 mg 0-27 CAPSULES ity of capsule 00:00: BY MOUTH [place] 00 THREE Medical TIMES Branch DAILY. GABAPENTIN 2016- 2019- No TAKE 3 Univ ers 300 mg 0-27 07-26 CAPSULES ity of capsule 00:00: 00:00 BY MOUTH [place] 00 :00 THREE Medical TIMES Branch DAILY. Walker 2017-0 Yes [id number] Use as Unive rs (ULTRA-LIGH 6-27 directed ity of T ROLLATOR) 00:00: [place] [address] Medical Branch Walker 2017-0 Yes [id number] Use as Unive rs (ULTRA-LIGH 6-27 directed ity of T ROLLATOR) 00:00: [place] [address] Medical Branch Walker 2017-0 Yes [id number] Use as Unive rs (ULTRA-LIGH 6-27 directed ity of T ROLLATOR) 00:00: [place] [address] Medical Branch Walker 2017-0 Yes [id number] Use as Unive rs (ULTRA-LIGH 6-27 directed ity of T ROLLATOR) 00:00: [place] [address] Medical Branch Craig 2017-0 Yes [id number] Use as Unive rs (ULTRA-LIGH 6-27 directed ity of T ROLLATOR) 00:00: [place] [address] Medical Branch metroNIDAZO 2017-0 Yes 500mg Take 1 Uni vers LE 500 mg 6-12 tablet by ity o f tablet 00:00: mouth 2 [place] (two) Medical times Branch daily. metroNIDAZO 2017-0 Yes 500mg Take 1 Uni vers LE 500 mg 6-12 tablet by ity o f tablet 00:00: mouth 2 [place] (two) Medical times Branch daily. metroNIDAZO 2017-0 Yes 500mg Take 1 Uni vers LE 500 mg 6-12 tablet by ity o f tablet 00:00: mouth 2 [place] (two) Medical times Branch daily. metroNIDAZO 2017-0 [...] by mouth ity of tablet 20:00: daily. [address] aspirin 81 2017-0 Yes 81mg Take 81 mg U nivers mg chewable 6-09 by mouth ity of tablet 20:00: daily. [address] aspirin 81 2017-0 Yes 81mg Take 81 mg U nivers mg chewable 6-09 by mouth ity of tablet 20:00: daily. [address] aspirin 81 2017-0 Yes 81mg Take 81 mg U nivers mg chewable 6-09 by mouth ity of tablet 20:00: daily. [address] aspirin 81 2017-0 Yes 81mg Take 81 mg U nivers mg chewable 6-09 by mouth ity of tablet 15:00: daily. [address] KCL 10 mEq 2017-0 Yes [id number] 10meq Take 1 Univers tablet 6-09 tablet by ity of 00:00: mouth [place] 00 daily. Medical Branch KCL 10 mEq Yes [id number] 10meq Take 1 Univers tablet 6-09 tablet by ity of 00:00: mouth [place] 00 daily. Medical Branch KCL 10 mEq Yes [id number] 10meq Take 1 Univers tablet 6-09 tablet by ity of 00:00: mouth [place] 00 daily. Medical Branch KCL 10 mEq Yes [id number] 10meq Take 1 Univers tablet 6-09 tablet by ity of 00:00: mouth [place] 00 daily. Medical Branch KCL 10 mEq Yes [id number] 10meq Take 1 Univers tablet 6-09 tablet by ity of 00:00: mouth [place] 00 daily. Medical Branch baclofen 10 Yes Univer s mg tablet 6-06 ity of 00:00: [place] 00 Medical Branch [...] times Medical daily. Branch acetaminoph 2015-06 Yes [id number] 1{tbl} Take 1 Univers en-codeine 1-17 07 tablet by ity of (TYLENOL 00:00: mouth [place] #3) 300-30 00 every 6 Medica l mg tablet (six) Branch hours as needed for Pain (scale 7-10) or Pain unrelieved by non-narcot ic analgesics . acetaminoph 2015-06 2019- No [id number] 1{tbl} Take 1 Univers en-codeine -17 01-01 [...] ity of (FLEXERIL) 00:00: 00:00 mouth 3 [place] 10 mg 00 :00 (three) Medical tablet times Branch daily as needed for Muscle Spasms. Immunizations Ordered Filled Immunization Date Status Comments [facility] e Immunization Name Name TDAP (ADACEL) 2016-04-25 Completed University of VACCINE 00:00:00 [facility] TDAP (ADACEL) 2016-04-25 Completed University of VACCINE 00:00:00 [facility] TDAP (ADACEL) 2016-04-25 Completed University of VACCINE 00:00:00 [facility] TDAP (ADACEL) 2016-04-25 Completed University of VACCINE 00:00:00 [facility] TDAP (ADACEL) 2016-04-25 Completed University of VACCINE 00:00:00 [facility] Influenza Virus 2016-04-01 Completed Universit y of Vaccine Quad IM 00:00:00 [place] Med ical Multi-dose 6+ MO Branch Influenza [...] y of Vaccine Quad IM 3+ 00:00:00 [facility] Pneumococcal 2015-08-24 Completed University o f Polysaccharide, 00:00:00 [place] Med ical PPSV23 (PNEUMOVAX) Branch Influenza Virus 2015-08-24 Completed Universit y of Vaccine Quad IM 3+ 00:00:00 [facility] Pneumococcal 2015-08-24 Completed University o f Polysaccharide, 00:00:00 [place] Med ical PPSV23 (PNEUMOVAX) Branch Influenza Virus 2015-08-24 Completed Universit y of Vaccine Quad IM 3+ 00:00:00 [facility] Pneumococcal 2015-08-24 Completed University o f Polysaccharide, 00:00:00 [place] Med ical PPSV23 (PNEUMOVAX) Branch Influenza Virus 2015-08-24 Completed Universit y of Vaccine Quad IM 3+ 00:00:00 [facility] Pneumococcal 2015-08-24 Completed University o f Polysaccharide, 00:00:00 [place] Med ical PPSV23 (PNEUMOVAX) Branch Influenza Virus 2015-08-24 Completed Universit y of Vaccine Quad IM 3+ 00:00:00 [facility] HEPATITIS A 2014-10-06 Completed University of 00:00:00 [facility] Vital Signs Vital Name Observation Time Observation Value Comments Source Systolic blood 2019-01-01 13:32:00 142 mm[Hg] Univer sity of pressure [facility] Diastolic blood 2019-01-01 13:32:00 100 mm[Hg] Unive rsity of pressure [facility] Heart rate 2019-01-01 13:32:00 86 /min [facility] Body temperature 2019-01-01 13:32:00 [facility] height 2019-01-01 13:32:00 165.1 cm [facility] Body weight 2019-01-01 13:32:00 81.647 kg [facility] BMI 2019-01-01 13:32:00 29.95 kg/m2 [facility] Procedures Procedure Date / Time Performing Clinician Source Performed REFERRAL- 2022-04-07 05:01:00 Doctor Unassigned, No [facility] REQUEST/RESPONSE Name [facility] AUTHORIZATION FOR 2019-02-18 05:01:00 Doctor Unassigned, No [facility] RELEASE OF PHI Name [facility] COMP. METABOLIC PANEL 2019-01-01 13:52:00 Al Aguilar Un [facility] ([id number]) Medical [place] LIPID PANEL 2019-01-01 13:52:00 Al Aguilar [facility] ([id number])(TOTAL [facility] Branch CHOLESTEROL, TRIGLYCERIDES, HDL) CBC WITH DIFFERENTIAL 2019-01-01 13:52:00 Al Aguilar Un [facility] ASSIGNMENT OF BENEFITS 2019-01-01 13:15:46 Doctor Unassigned, No [facility] Name [facility] Encounters Start End Encounter Admission Attending Care Care Encounter Source Date/Time Date/Time Type Type Clinicians Facility Department ID 2022-10-02 2022-10-02 Outpatient SFA SFA [id number] Ramez 09:05:54 09:05:54 [id number] [facility] 2022-09-05 2022-09-05 Outpatient Shonda VIZCAINO [facility] [id number] Univers 14:00:00 14:00:00 [facility] 2022-07-24 2022-07-24 Outpatient Shonda VIZCAINO [facility] [id number] Univers 13:15:00 13:15:00 [facility] 2022-06-26 2022-06-26 Outpatient SFA SFA [id number] R[place]z 10:10:22 10:10:22 [id number] [facility] 2022-04-07 2022-04-07 Orders Doctor FLANNERY 1.2.840.114 [id number] Univers 00:00:00 00:00:00 Only Unassigned, TAYL[place] [id number] ity of [place] [facility] [id number] Juno as [phone] [address] 2022-03-26 2022-03-26 Outpatient SFA SFA [id number] Ramez 10:47:27 10:47:27 [id number] [place] 2019-02-18 2019-02-18 Orders Doctor FLANNERY [id number] [id number] Univers 00:00:00 00:00:00 Only Unassigned, TAYL[place] [id number] ity of [place] [facility] [id number] Juno as [phone] [address] 2019-01-24 2019-01-24 Refill Goran [facility] [id number] Univers 00:00:00 00:00:00 [facility] [id number] ity of [place] [id number] Juno as Professio [phone] Ak dicky nal [address] [place] [address] 2019-01-01 2019-01-01 Office Goran [facility] [id number] [facility] 08:17:32 09:01:49 Visit Al [facility] [id number] ity of [place] [id number] Juno as Professio [phone] Ak dicky nal [address] [place] [facility] 2019-01-01 2019-01-01 Orders Doctor PRUDENCIO [id number] Univers 00:00:00 00:00:00 Only Unassigned, [place] [id number] ity of [place] [facility] [id number] Juno as [phone] [address] Results Test Description Test Time Test Comments Results Result Comments Source TSH, THIRD GENERATION 2022-01-02 04:53:46 Test Item Value Reference Range Interpretation Comme nts TSH, THIRD GENERATION (test 89.300 UIU/ML 0.400-4.100 H UNLESS OTHERWISE INDICATED, code = 2821) ALL TESTING PER FORMED ATCLINICAL PATH [facility] [place]. [address] [place] [address] 4884 DAIRY FARMER: Ethan HARTMAN [id number] [place] [id number] CBC W/AUTO DIFF WITH [id number] 04:43:48 Test Item Value Reference Range Interpretation [...] RBCS 0.00 K/UL 0.00-0.11 (test code = 45781) LIPID [id number] 03:18:10 Test Item Value Reference Range Interpretation [...] MOREINFORMATION , SEE CLIENT ANNOUNCE MENT AT [email or web address] [email or web address] RATIO LDL/HDL 1.78 RATIO <3.22 (test code = 2238) COMPREHENSIVE METABOLIC [id number] 03:18:10 Test Item Value Reference Range Interpretation Comments GLUCOSE (test code = 98 MG/DL 70-99 2216) BUN (test code = 12 MG/DL 8-23 2207) CREATININE (test 0.81 MG/DL 0.60-1.30 code = 221) eGFR (2020 CKD-EPI) 83 ML/MIN/1.73 >60 (test code = 34466) CALC BUN/CREAT (test 15 RATIO 6-28 code = 2235) SODIUM (test code = 141 MEQ/L 860-648 0296) POTASSIUM (test code 4.3 MEQ/L 3.5-5.4 = [...] U/L 5-40 H 2219) COMP. METABOLIC PANEL (68079)2019-01-01 16:13:00 Test Item Value Reference Range Interpretation Comments NA (test code = 142 mmol/L 135-145 7592040400) K (test code = 5.6 mmol/L 3.5-5 H 6262224318) CL (test code = 106 mmol/L 98-108 7549291639) CO2 TOTAL (test code = 28 mmol/L 23-31 9478436968) AGAP (test code = 2-16 3929201069) BUN (test code = 6 mg/dL 7-23 L 2934822438) GLUCOSE (test code = 105 mg/dL 70-110 9138746356) CREATININE (test code = 0.79 mg/dL 0.5-1.04 2282096595) TOTAL BILI (test code = 1.3 mg/dL 0.1-1.1 H 3090803404) CALCIUM (test code = 9.1 mg/dL 8.6-10.6 5673697122) T PROTEIN (test code = 8.7 g/dL 6.3-8.2 H 0223959474) ALBUMIN (test code = 4.0 g/dL 3.5-5 2672288789) ALK PHOS (test code = 72 U/L 34-122 4140895628) ALT(SGPT) (test code = 58 U/L 9-51 H 9454488595) AST(SGOT) (test code = 87 U/L 13-40 H 5754366276) eGFR Calculation mL/min/1.73m2 (Non-) (test code = 7182778241) eGFR Calculation mL/min/1.73m2 () (test code = 9162554345) ROMY (test code = ROMY) Association of [...] tests). Lab Interpretation Abnormal (test code = 11693-0) [facility] [place] [facility])(TOTAL CHOLESTEROL, TRIGLYCERIDES, HDL)2019-01-01 16:13:00 Test Item Value Reference Range Interpretation Comments CHOL (test code = 160 mg/dL 120-200 4568377107) HDL (test code = 61 mg/dL >50 5965087409) HDLC RATIO (test code = See_Comment [Au tomated message] 5360791896) The system [employer] generated this result transmit amelie reference range : <=4.5. The refe rence range was not u sed to interpret th is result as normal/abnormal . TRIG (test code = 73 mg/dL 30-170 3870497400) LDL CHOL (test code = 84 mg/dL See_Comment [Auto mated message] 20579-7) The system [employer]la[employer] generated this result transmit amelie reference range : <=160. The refe rence range was not u sed to interpret th is result as normal/abnormal . VLDL (test code = 15 mg/dL 5-60 7074672899) Lab Interpretation (test Normal code = 71617-8) [facility] [place] [facility]"
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
[2022-11-13 22:49] LABS: Absolute Lymphocytes (CBC) 1.6 K/uL (0.7-4.9); Hematocrit 33.9 % (36.0-45.0); Lymphocytes % 21.2 % (15.3-44.8); MCV 91.7 fL (80-100); MPV 7.5 fL (7.6-11.3); RBC Red Blood Cell Count 3.69 M/uL (3.86-4.86)
[2022-11-13] MEDS ORDERED: KETOROLAC 30 MG/ML INJ ONE (23:02)
[2022-11-13] MEDS ORDERED: ONDANSETRON 4 MG/2 ML VIAL ONE (23:03)
[2022-11-13 23:04] LABS: Potassium 3.2 mEq/L (3.5-5.1)
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
[2022-11-14] MEDS ORDERED: HYDROCODONE/APAP 5/325 MG TAB ONE (00:39)
[2022-11-14 03:34] VITALS: O2SAT 96
[2022-11-14 03:35] VITALS: BP 130/85
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
== END 2022-11-14 02:23 | disposition home or self-care (01) ==
LOC: ER 21:49
DX: S00.83XA Contusion of other part of head, initial encounter (principal); S70.11XA Contusion of right thigh, initial encounter; M54.2 Cervicalgia; Y04.8XXA Assault by other bodily force, initial encounter; I10 Essential (primary) hypertension; J44.9 Chronic obstructive pulmonary disease, unspecified; E03.9 Hypothyroidism, unspecified; F31.9 Bipolar disorder, unspecified; F17.210 Nicotine dependence, cigarettes, uncomplicated; Z86.73 Personal history of transient ischemic attack (TIA), and cerebral infarction without residual deficits; Z88.0 Allergy status to penicillin
CPT/HCPCS: 85025; 80048; 36415; 86900; 86850; 86901; 70450; 72125; 71045; 72170; 73552; 96375; 96374; 99284; 82077; J2405

== ENCOUNTER 2022-11-16 22:20 | Emergency (ER) | payer OTHER ==
--- OUTSIDE RECORDS SUMMARY | 2022-11-16 22:25 | XMS REPORT | Continuity of Care Document ---
:1960 Author Organization [facility] t Address [address] [facility]. [address] [place] [address] Care Team Providers Name Role Phone AL AGUILAR Primary Care Physician Unavailable TAVO VIZCAINO Attending Clinician Unavailable Doctor Unassigned, Gratis Attending Clinician Unavailable Al Aguilar MD Attending Clinician Payers Payer Name Policy Type Policy Number Effective Date Expiration Date [facility] [id number] 2016 00:00:00 PLUS Problems Condition Condition Condition Status Onset Resolution Last Treating Co mments Source Name Details Category Date Date Treatment Clinician Date Essential Essential Disease Active Uni vers hypertensi hypertensi 7-26 it y of on on 00:00: [address] Obesity Obesity Disease Active Univers (BMI (BMI 5-25 ity of 30-39.9) 30-39.9) 00:00: [address] [place] [address] Branch Osteomyeli Osteomyeli Disease Active U shelley tis tis 5-24 ity of 00:00: [address] Positive Positive Disease Active 2015-06 Unive rs serology serology 1-15 ity of for for 00:00: [place] syphilis syphilis 00 Medica Branch 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 1-15 it y of ve ve 00:00: [address] Trichomoni Trichomoni Disease Active 2015-06 U shelley asis asis 0-26 ity of 00:00: [address] Tobacco Tobacco Disease Active 2015-06 Univers [...] nivers openia openia 6-17 ity of 00:00: [place] [facility] Alcohol Alcohol Disease Active Univers use use 6-17 ity of 00:00: [place] [facility] Thrombocyt Thrombocyt Disease Active U nivers openia openia 6-17 ity of 00:00: [place] [facility] Cervical Cervical Disease Active Unive [...] (hyperlipi (hyperlipi it y of demia) demia) [facility] Hepatic Hepatic Disease Active Univers cirrhosis cirrhosis ity of [facility] Acquired Acquired Disease Active Unive rs hypothyroi hypothyroi it y of dism dism [facility] Allergies, Adverse Reactions, Alerts Allergy Allergy Status Severity Reaction(s) Onset Inactive Treating Comm ents Source Name Type Date Date Clinician Penicill Propensi Active Rash 2006- Univer s ins ty to 8 ity of adverse 00:00: [place] reaction 00 [facility] PENICILL Drug Active Rash Univers INS Class 8-29 ity of 00:00: [place] 00 [facility] Penicill Propensi Active Rash 2006- Univer s ins ty to 8 ity of adverse 00:00: [place] reaction 00 [facility] Social History Social Habit Start Date Stop Date Quantity Comments Source History of tobacco Cigarette Smoker University of use [facility] Alcohol intake 2019-05-22 2019-05-22 .86 /d University of 00:00:00 00:00:00 [facility] Tobacco use and 2015-08-01 2015-08-01 Smokeless Universit y of exposure 00:00:00 00:00:00 tobacco [facility] smoked 2015-08-01 2015-08-01 Univers ity of current (pack per 00:00:00 00:00:00 [facility] ) - Reported Branch Cigarette 2015-08-01 2015-08-01 University of pack-years 00:00:00 00:00:00 [facility] Tobacco Comment 2014-12-26 2014-12-26 smokes 6 cig/day Uni versity of 00:00:00 00:00:00 [facility] Sex Ass[birth year] At [birth year] Universit y of 00:00:00 00:00:00 [facility] Smoking Status Start Date Stop Date Source Smokes tobacco daily 2015-08-01 00:00:00 Univers ity of [facility] Medications Ordered Filled Start Stop Current Ordering Indication Dosage Frequency Signature Comments Components Source Medication Medication Date Date Medication? Clinician (SIG) Name Name gabapentin 2018-06 Yes [id number] 400mg Take 1 Univers (NEURONTIN) 2-14 capsule by it y of 400 mg 00:00: mouth 3 [place] capsule 00 (three) Medical times [place] daily. cyclobenzap 2018-06 Yes [id number] 10mg Take 1 Univers rine 10 mg 2-14 tablet by ity of tablet 00:00: mouth 3 [place] 00 (three) Medical times [place] daily. amLODIPine Yes [id number] 5mg Take 1 U nivers 5 mg tablet 7-26 tablet by ity of 00:00: mouth [place] 00 daily. Medical Branch cyclobenzap Yes [id number] 10mg Take 1 Univers rine 10 mg 7-26 tablet by ity of tablet 00:00: mouth (three) Medical times Branch daily as needed for Muscle Spasms. gabapentin 2019- Yes [id number] 400mg Take 1 Univers 400 mg 7-26 capsule by ity of capsule 00:00: mouth (three) Medical times Branch daily. amLODIPine 2019 Yes [id number] 5mg Take 1 U nivers 5 mg tablet 7-26 tablet by ity of 00:00: mouth 00 daily. Medical Branch cyclobenzap Yes [id number] 10mg Take 1 Univers rine 10 mg 7-26 tablet by ity of tablet 00:00: mouth (three) Medical times Branch daily as needed for Muscle Spasms. gabapentin 2018- Yes [id number] 400mg Take 1 Univers 400 mg 7-26 capsule by ity of capsule 00:00: mouth (three) Medical times Branch daily. amLODIPine Yes [id number] 5mg Take 1 U nivers 5 mg tablet 7-26 tablet by ity of 00:00: mouth 00 daily. Medical Branch amLODIPine 2018-0 Yes [id number] 5mg Take 1 U nivers 5 mg tablet 7-26 tablet by ity of 00:00: mouth 00 daily. Medical Branch cyclobenzap Yes [id number] 10mg Take 1 Univers rine 10 mg 7-26 tablet by ity of tablet 00:00: mouth (three) Medical times Branch daily as needed for Muscle Spasms. gabapentin 2018- Yes [id number] 400mg Take 1 Univers 400 mg 7-26 [...] BY ity of mg tablet 00:00: MOUTH [place] 00 TWICE A Medical DAY Branch METOPROLOL 2018-0 2019- No TAKE 1 Univ ers TARTRATE 50 3-12 07-26 TABLET BY it y of mg tablet 00:00: 00:00 MOUTH [place] 00 :00 TWICE A Medical DAY Branch GABAPENTIN 2017- Yes TAKE 3 Unive rs 300 mg 0-27 CAPSULES ity of capsule 00:00: BY MOUTH [place] 00 THREE Medical TIMES Branch DAILY. GABAPENTIN 2016- 2019- No TAKE 3 Univ ers 300 mg 0-27 07-26 CAPSULES ity of capsule 00:00: 00:00 BY MOUTH [place] 00 :00 THREE Medical TIMES Branch DAILY. Walker 2017-0 Yes [id number] Use as Unive rs (ULTRA-LIGH 6-27 directed ity of T ROLLATOR) 00:00: [place] [address] Medical Branch Walker 2017-0 Yes [id number] Use as Unive rs (ULTRA-LIGH 6-27 directed ity of T ROLLATOR) 00:00: [place] [address] Medical Branch Walker 2017-0 Yes [id number] Use as Unive rs (ULTRA-LIGH 6-27 directed ity of T ROLLATOR) 00:00: [place] [address] Medical Branch Walker 2017-0 Yes [id number] Use as Unive rs (ULTRA-LIGH 6-27 directed ity of T ROLLATOR) 00:00: [place] [address] Medical Branch Craig 2017-0 Yes [id number] Use as Unive rs (ULTRA-LIGH 6-27 directed ity of T ROLLATOR) 00:00: [place] [address] Medical Branch metroNIDAZO 2017-0 Yes 500mg Take 1 Uni vers LE 500 mg 6-12 tablet by ity o f tablet 00:00: mouth 2 [place] (two) Medical times Branch daily. metroNIDAZO 2017-0 Yes 500mg Take 1 Uni vers LE 500 mg 6-12 tablet by ity o f tablet 00:00: mouth 2 [place] (two) Medical times Branch daily. metroNIDAZO 2017-0 Yes 500mg Take 1 Uni vers LE 500 mg 6-12 tablet by ity o f tablet 00:00: mouth 2 [place] (two) Medical times Branch daily. metroNIDAZO 2017-0 [...] mouth ity of tablet 20:00: daily. [address] aspirin 81 2017-0 Yes 81mg Take 81 mg U nivers mg chewable 6-09 by mouth ity of tablet 20:00: daily. [address] aspirin 81 2017-0 Yes 81mg Take 81 mg U nivers mg chewable 6-09 by mouth ity of tablet 20:00: daily. [address] aspirin 81 2017-0 Yes 81mg Take 81 mg U nivers mg chewable 6-09 by mouth ity of tablet 20:00: daily. [address] aspirin 81 2017-0 Yes 81mg Take 81 mg U nivers mg chewable 6-09 by mouth ity of tablet 15:00: daily. [address] KCL 10 mEq 2017-0 Yes [id number] 10meq Take 1 Univers tablet 6-09 tablet by ity of 00:00: mouth [place] 00 daily. Medical Branch KCL 10 mEq Yes [id number] 10meq Take 1 Univers tablet 6-09 tablet by ity of 00:00: mouth [place] 00 daily. Medical Branch KCL 10 mEq Yes [id number] 10meq Take 1 Univers tablet 6-09 tablet by ity of 00:00: mouth [place] 00 daily. Medical Branch KCL 10 mEq Yes [id number] 10meq Take 1 Univers tablet 6-09 tablet by ity of 00:00: mouth [place] 00 daily. Medical Branch KCL 10 mEq Yes [id number] 10meq Take 1 Univers tablet 6-09 tablet [...] times Medical daily. Branch acetaminoph 2015-06 Yes [id number] 1{tbl} Take 1 Univers en-codeine 1-17 07 tablet by ity of (TYLENOL 00:00: mouth [place] #3) 300-30 00 every 6 Medica l mg tablet (six) Branch hours as needed for Pain (scale 7-10) or Pain unrelieved by non-narcot ic analgesics . acetaminoph 2015-06 2019- No [id number] 1{tbl} Take 1 Univers en-codeine -17 01-01 [...] Immunizations Ordered Filled Immunization Date Status Comments [facility] Immunization Name Name TDAP (ADACEL) 2016-04-25 Completed University of VACCINE 00:00:00 [facility] TDAP (ADACEL) 2016-04-25 Completed University of VACCINE 00:00:00 [facility] TDAP (ADACEL) 2016-04-25 Completed University of VACCINE 00:00:00 [facility] TDAP (ADACEL) 2016-04-25 Completed University of VACCINE 00:00:00 [facility] TDAP (ADACEL) 2016-04-25 Completed University of VACCINE 00:00:00 [facility] Influenza Virus 2016-04-01 Completed Universit y of Vaccine Quad IM 00:00:00 [place] Med ical Multi-dose 6+ MO Branch Influenza [...] of Vaccine Quad IM 3+ 00:00:00 [facility] Pneumococcal 2015-08-24 Completed University o f Polysaccharide, 00:00:00 [place] Med ical PPSV23 (PNEUMOVAX) Branch Influenza Virus 2015-08-24 Completed Universit y of Vaccine Quad IM 3+ 00:00:00 [facility] Pneumococcal 2015-08-24 Completed University o f Polysaccharide, 00:00:00 [place] Med ical PPSV23 (PNEUMOVAX) Branch Influenza Virus 2015-08-24 Completed Universit y of Vaccine Quad IM 3+ 00:00:00 [facility] Pneumococcal 2015-08-24 Completed University o f Polysaccharide, 00:00:00 [place] Med ical PPSV23 (PNEUMOVAX) Branch Influenza Virus 2015-08-24 Completed Universit y of Vaccine Quad IM 3+ 00:00:00 [facility] Pneumococcal 2015-08-24 Completed University o f Polysaccharide, 00:00:00 [place] Med ical PPSV23 (PNEUMOVAX) Branch Influenza Virus 2015-08-24 Completed Universit y of Vaccine Quad IM 3+ 00:00:00 [facility] HEPATITIS A 2014-10-06 Completed University of 00:00:00 [facility] Vital Signs Vital Name Observation Time Observation Value Comments Source Systolic blood 2019-01-01 13:32:00 142 mm[Hg] Univer sity of pressure [facility] Diastolic blood 2019-01-01 13:32:00 100 mm[Hg] Unive rsity of pressure [facility] Heart rate 2019-01-01 13:32:00 86 /min [facility] Body temperature 2019-01-01 13:32:00 [facility]44 [facility] height 2019-01-01 13:32:00 165.1 cm [facility] Body weight 2019-01-01 13:32:00 81.647 kg [facility] BMI 2019-01-01 13:32:00 29.95 kg/m2 [facility] Procedures Procedure Date / Time Performing Clinician Source Performed REFERRAL- 2022-04-07 05:01:00 Doctor Unassigned, No [facility] REQUEST/RESPONSE Name [facility] AUTHORIZATION FOR 2019-02-18 05:01:00 Doctor Unassigned, No [facility] RELEASE OF PHI Name [facility] COMP. METABOLIC PANEL 2019-01-01 13:52:00 Al Aguilar Un [facility] ([id number]) [facility] LIPID PANEL 2019-01-01 13:52:00 Al Aguilar [facility] ([id number])(TOTAL Medical Branch CHOLESTEROL, TRIGLYCERIDES, HDL) CBC WITH DIFFERENTIAL 2019-01-01 13:52:00 Al Aguilar Un [facility] ASSIGNMENT OF BENEFITS 2019-01-01 13:15:46 Doctor Unassigned, No [facility] Name [facility] Encounters Start End Encounter Admission Attending Care Care Encounter Source Date/Time Date/Time Type Type Clinicians Facility Department ID 2022-10-02 2022-10-02 Outpatient SFA SFA [id number] Ramez 09:05:54 09:05:54 [id number] [facility] 2022-09-05 2022-09-05 Outpatient Shonda VIZCAINO [facility] [id number] Univers 14:00:00 14:00:00 [facility] 2022-07-24 2022-07-24 Outpatient Shonda VIZCAINO [facility] [id number] Univers 13:15:00 13:15:00 [facility] 2022-06-26 2022-06-26 Outpatient SFA SFA [id number] Ramez 10:10:22 10:10:22 [id number] [facility] 2022-04-07 2022-04-07 Orders Doctor PRUDENCIO Landers.[id number] Univers 00:00:00 00:00:00 Only Unassigned, TAYLOR 350.1.13.10 ity of Gratis [facility] 4.2.7.2.686 Juno as [phone] [address] 2022-03-26 2022-03-26 Outpatient SFA SFA [id number] Ramez 10:47:27 10:47:27 [id number] F Errol 2019-02-18 2019-02-18 Orders Doctor PRUDENCIO [id number] Univers 00:00:00 00:00:00 Only Unassigned, TAYLOR [id number] ity of [place] [facility] 4.2.7.2.686 Juno as [phone] [address] 2019-01-24 2019-01-24 Refill Goran ORYULI [id number] Univers 00:00:00 00:00:00 [facility] 350.1.13.10 ity of [place] 4.2.7.2.686 Juno as [facility]io [phone] [facility] [address] 2019-01-01 2019-01-01 Office Goran [facility] [id number] [facility] 08:17:32 09:01:49 Visit Al [facility] [id number] ity of [place] 4.2.7.2.686 Juno as Professio [phone] Dc dic[address] Office [address] 2019-01-01 2019-01-01 Orders Doctor PRUDENCIO [id number] Univers 00:00:00 00:00:00 Only Unassigned, TAYLOR [id number] ity of [place] [facility] 4.2.7.2.686 Juno as [phone] [address] Results Test Description Test Time Test Comments Results Result Comments Source TSH, THIRD GENERATION 2022-01-02 04:53:46 Test Item Value Reference Range Interpretation Comme nts TSH, THIRD GENERATION (test 89.300 UIU/ML 0.400-4.100 H UNLESS OTHERWISE INDICATED, code = 2821) ALL TESTING PER FORMED ATCL[facility], I [place]. [address] [place] [address] 2415 HOP PICKER: Ethan HARTMAN [id number] [place]. [id number] CBC W/AUTO DIFF WITH [id number] 04:43:48 Test Item Value Reference Range Interpretation [...] RBCS 0.00 K/UL 0.00-0.11 (test code = 42681) LIPID [id number] 03:18:10 Test Item Value Reference Range Interpretation [...] MOREINFORMATION , SEE CLIENT ANNOUNCE MENT AT [email or web address] RISK RATIO LDL/HDL 1.78 RATIO <3.22 (test code = 2238) COMPREHENSIVE METABOLIC [id number] 03:18:10 Test Item Value Reference Range Interpretation Comments GLUCOSE (test code = 98 MG/DL 70-99 2216) BUN (test code = 12 MG/DL 8-23 2207) CREATININE (test 0.81 MG/DL 0.60-1.30 code = 221) eGFR (2020 CKD-EPI) 83 ML/MIN/1.73 >60 (test code = 50105) CALC BUN/CREAT (test 15 RATIO 6-28 code = 2235) SODIUM (test code = 141 MEQ/L 800-943 0072) POTASSIUM (test code 4.3 MEQ/L 3.5-5.4 = [...] U/L 5-40 H 2219) COMP. METABOLIC PANEL (84235)2019-01-01 16:13:00 Test Item Value Reference Range Interpretation Comments NA (test code = 142 mmol/L 135-145 0612339841) K (test code = 5.6 mmol/L 3.5-5 H 3831403351) CL (test code = 106 mmol/L 98-108 4871163183) CO2 TOTAL (test code = 28 mmol/L 23-31 1614352643) AGAP (test code = 2-16 9939410498) BUN (test code = 6 mg/dL 7-23 L 3024578109) GLUCOSE (test code = 105 mg/dL 70-110 4797098281) CREATININE (test code = 0.79 mg/dL 0.5-1.04 9821913944) TOTAL BILI (test code = 1.3 mg/dL 0.1-1.1 H 5377256052) CALCIUM (test code = 9.1 mg/dL 8.6-10.6 1458197512) T PROTEIN (test code = 8.7 g/dL 6.3-8.2 H 1928811532) ALBUMIN (test code = 4.0 g/dL 3.5-5 3138215021) ALK PHOS (test code = 72 U/L 34-122 4725873462) ALT(SGPT) (test code = 58 U/L 9-51 H 1819659189) AST(SGOT) (test code = 87 U/L 13-40 H 6001113348) eGFR Calculation mL/min/1.73m2 (Non-) (test code = 8661835939) eGFR Calculation mL/min/1.73m2 () (test code = 6026439697) ROMY (test code = ROMY) Association of [...] tests). Lab Interpretation Abnormal (test code = 75632-5) [facility]TOTAL CHOLESTEROL, TRIGLYCERIDES, HDL)2019-01-01 16:13:00 Test Item Value Reference Range Interpretation Comments CHOL (test code = 160 mg/dL 120-200 1175132535) HDL (test code = 61 mg/dL >50 6001627736) HDLC RATIO (test code = See_Comment [Au tomated message] 7389932121) The system [employer] generated this result transmit amelie reference range : <=4.5. The refe rence range was not u sed to interpret th is result as normal/abnormal . TRIG (test code = 73 mg/dL 30-170 2981583419) LDL CHOL (test code = 84 mg/dL See_Comment [Auto mated message] 61351-7) The system [employer] generated this result transmit amelie reference range : <=160. The refe rence range was not u sed to interpret th is result as normal/abnormal . VLDL (test code = 15 mg/dL 5-60 3319487655) Lab Interpretation (test Normal code = 65731-6) [facility]"
[2022-11-16 23:08] LABS: Absolute Lymphocytes (CBC) 1.4 K/uL (0.7-4.9); Hematocrit 34.7 % (36.0-45.0); Lymphocytes % 31.3 % (15.3-44.8); MCV 94.2 fL (80-100); MPV 7.2 fL (7.6-11.3); RBC Red Blood Cell Count 3.68 M/uL (3.86-4.86)
[2022-11-16 23:29] LABS: Protime INR 1.19
[2022-11-16 23:40] LABS: Albumin 2.7 g/dL (3.4-5.0); Bilirubin Direct 0.7 mg/dL (0-0.2); Bilirubin Total 1.7 mg/dL (0.2-1.0); Magnesium 2.1 mg/dL (1.6-2.4); Protein, Total 6.9 g/dL (6.4-8.2); Troponin High Sensitivity 9.3 pg/mL (<58.9)
[2022-11-17] MEDS ORDERED: POTASSIUM CL SA 10 MEQ TAB PO ONE (00:20)
[2022-11-17] MEDS ORDERED: KETOROLAC 30 MG/ML INJ ONE (00:45)
--- NOTE | 2022-11-17 00:51 | ER ---
Nurse's Notes [facility] Name: Maisha Leo Age: 62 yrs Sex: Female : 1960 Arrival Date: 11/16/2022 Time: 22:20 Bed 3 Private MD: Diagnosis: Hypokalemia;Low back pain;Fall on same level, unspecified;Pain in unspecified knee-bilateral Presentation: 11/16 22:23 Chief complaint: EMS states: pt had multiple falls today, complaining of tg knee pain rv and back pain. old hematoma on the left side of face from previous fall. AOx 4. Coronavirus screen: Vaccine status: Patient reports being unvaccinated. Ebola Screen: Patient negative for fever greater than or equal to 101.5 degrees Fahrenheit, and additional compatible Ebola Virus Disease symptoms Patient denies exposure to infectious person. Patient denies travel to an Ebola-affected area in the 21 days before illness onset. Initial Sepsis Screen: Does the patient meet any 2 criteria? No. Patient's initial sepsis screen is negative. Does the patient have a suspected source of infection? No. Patient's initial sepsis screen is negative. Risk Assessment: Do you want to hurt yourself or someone else? Patient reports no desire to harm self or others. Onset of symptoms was November 16, 2022. 22:23 Method Of Arrival: EMS: [facility] rv 22:23 Acuity: ARTURO 2 rv Triage Assessment: 22:28 General: Appears uncomfortable, Behavior is calm, cooperative. Pain: Complains of pain rv in right knee and left knee. Neuro: Level of Consciousness is awake, alert, obeys commands, Oriented to person, place, time, situation. Cardiovascular: Capillary refill < 3 seconds. Respiratory: Airway is patent. Derm: Skin is intact. Historical: - Allergies: 22:28 PENICILLINS; rv - Home Meds: 22:28 Albuterol Inhl PRN [Active]; amlodipine 10 mg tablet daily [Active]; cyclobenzaprine 10 rv mg Oral tablet 1 tab 2 times per day [Active]; gabapentin 600 mg Oral tablet 1 tab 3 times per day [Active]; Keppra 500 mg Oral tablet [Active]; lamotrigine 25 mg (84) -100 mg (14) oral Tablet, Dose Pack [Active]; - PMHx: 22:28 ADD/ADHD; Bipolar disorder; Cerebrovascular accident; Cirrhosis; COPD; CVA; Left sided rv weakness; Fibromyalgia; Hypertension; Hypothyroidism; Myocardial infarction; Seizures; - PSHx: 22:28 right big toe; rv - Immunization history:: Adult Immunizations not up to date. - Social history:: Smoking status: Patient reports the use of cigarette tobacco products, smokes one pack cigarettes per day. Patient uses street drugs, cocaine. Screenin:30 [facility] ED Fall Risk Assessment (Adult) History of falling in the last 3 months, rv including since admission No falls in past 3 months (0 pts). Abuse screen: Denies threats or abuse. Denies injuries from another. Nutritional screening: No deficits noted. Tuberculosis screening: No symptoms or risk factors identified. Vital Signs: 22:23 BP 118 / 80; Pulse 88; Resp 18; Temp 98.4; Pulse Ox 100% on R/A; rv 23:04 BP 125 / 85; Pulse 84; Resp 18; Pulse Ox 95% on R/A; rv 0611 00:00 BP 121 / 81; Pulse 80; Resp 18; Pulse Ox 96% on R/A; rv 01:00 BP 118 / 84; Pulse 85; Resp 17; Pulse Ox 95% on R/A; rv 01:30 BP 120 / 76; Pulse 80; Resp 18; Temp 98.1; Pulse Ox 95% ; rv Matthews Coma Score: 01:30 Eye Response: spontaneous(4). Motor Response: obeys commands(6). Verbal Response: rv oriented(5). Total: 15. ED Course: 11/16 22:23 Patient arrived in ED. rv 22:24 Tolu Lance MD is Attending Physician. bs3 22:24 Chelly Courtney FNP-C is [facility] kb 22:27 Triage completed. rv 22:28 Landon Adams, AZIZA is Primary Nurse. rv 22:30 Arm band placed on right wrist. rv 22:30 Patient has correct armband on for positive identification. Placed in gown. Bed in low rv position. Call light in reach. Client placed on continuous cardiac and pulse oximetry monitoring. NIBP monitoring applied. school bus monitor on. 22:47 Knee Left 2 View XRAY In Process Unspecified. EDMS 22:47 Knee Right 2 View XRAY In Process Unspecified. EDMS 23:04 Inserted saline lock: 20 gauge in left antecubital area, using aseptic technique. Blood rv collected. 23:07 CT Traumagram (Head C Spine CAP wo con) In Process Unspecified. EDMS 11/17 01:43 No provider procedures requiring assistance completed. IV discontinued, intact, rv bleeding controlled, No redness/swelling at site. Pressure dressing applied. Administered Medications: 00:15 Drug: Potassium Chloride PO 40 mEq Route: PO; pf1 00:53 Follow up: Response: No adverse reaction pf1 00:40 Drug: Ketorolac IVP 15 mg Route: IVP; Site: left antecubital; jb4 01:40 Follow up: Response: No adverse reaction rv 00:59 Drug: Keppra IV 1000 mg Route: IV; Rate: calculated rate; Site: left antecubital; jb4 01:40 Follow up: Response: No adverse reaction; IV Status: Completed infusion; IV Intake: rv 100ml Medication: 11/16 22:30 VIS not applicable for this client. rv Intake: 11/17 01:40 IV: 100ml; Total: 100ml. rv Outcome: 00:50 Discharge ordered by . kb 01:43 Discharged to home ambulatory, WITH WALKER rv 01:43 Condition: good 01:43 Discharge instructions given to patient, Instructed on discharge instructions, follow up and referral plans. Demonstrated understanding of instructions, follow-up care. 01:44 Patient left the ED. rv Signatures: Dispatcher [employer] EDWI Chelly Courtney, SIDE SEAM TENDER-C SIDE SEAM TENDER-CkSalvador Jhaveri RN RN jb4 Landon Adams RN RN rv Tolu Lance MD MD bs3 Radha Woodward RN RN pf1
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
[2022-11-17] MEDS ORDERED: levETIRAcetam 500 MG TAB ONE (01:02)
[2022-11-17] MEDS ORDERED: LEVETIRACETAM 500 MG/5 ML VIAL IV ONE (01:03)
[2022-11-17] MEDS ORDERED: NA CHLORIDE 0.9% 100 ML ONE (01:03)
[2022-11-17 02:20] VITALS: O2SAT 95
[2022-11-17 02:21] VITALS: BP 120/76; TEMP 98.1
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
--- NOTE | 2022-11-18 11:41 | RAD REPORT ---
EXAM DESCRIPTION: RAD - Knee Right 2 View - 11/16/2022 10:45 pm CLINICAL HISTORY: Right knee PAIN COMPARISON: 11/16/2022. TECHNIQUE: XR KNEE 1-2 VIEWS 11/16/2022 10:27 PM CDT FINDINGS: There is an old fracture of the proximal fibula. Joint spaces are preserved. Soft tissue s are unremarkable. IMPRESSION: No acute osseous findings. Electronically signed by: Bogdan Forrester MD 11/16/2022 11:16 PM CDT Due to temporary technical issues with the PACS/Fluency reporting system, reports are being signed by the in house radiologist without review as a courtesy to ensure prompt reporting. The interpreting r adiologist is fully responsible for the content of the report.
--- NOTE | 2022-11-18 11:45 | RAD REPORT ---
EXAM DESCRIPTION: RAD - Knee Left 2 View - 11/16/2022 10:45 pm CLINICAL HISTORY: 62 years Female, PAIN COMPARISON: 10/27/2022 FINDINGS: AP and lateral views of the left knee. Mild osseous demineralization. No acute fracture or dislocation. Small joint effusion. Mild tricompartmental degenerative changes with joint space narro wing and bony spurring. Mild nonspecific subcutaneous edema, stable. IMPRESSION: Mild tricompartmental degenerative changes with small joint effusion. Electronically signed by: Caroline Workman MD 11/16/2022 11:13 PM CDT Due to temporary technical issues with the PACS/Fluency reporting system, reports are being signed by the in house radiologist without review as a courtesy to ensure prompt reporting. The interpreting r adiologist is fully responsible for the content of the report.
--- NOTE | 2022-11-18 12:06 | EKG ---
Test Date: 2022-11-16 Test Time: 22:56:10 Waist Presser: RV MEASUREMENT RESULTS: Intervals: Rate: 83 CT: 168 QRSD: 94 QT: 414 QTc: 486 [place]: P: 68 CT: 168 QRS: -19 T: 70 INTERPRETIVE STATEMENTS: Normal sinus rhythm Prolonged QT Abnormal ECG Compared to ECG 11/01/2022 20:55:24 Prolonged QT interval now present Myocardial infarct finding no longer present Electronically Signed On 11-18-22 12:00:51 CDT by Aron Howard
== END 2022-11-17 01:44 | disposition home or self-care (01) ==
LOC: ER 22:20
DX: M54.50 Low back pain, unspecified (principal); M25.562 Pain in left knee; M25.561 Pain in right knee; E87.6 Hypokalemia; W18.30XA Fall on same level, unspecified, initial encounter; I10 Essential (primary) hypertension; G40.909 Epilepsy, unspecified, not intractable, without status epilepticus; Z88.0 Allergy status to penicillin
CPT/HCPCS: 96365; 93005; 85025; 80048; 36415; 83735; 85610; 80076; 85730; 84484; 70450; 71250; 72125; 73560 ×2; 96375; 99285; J1953

== ENCOUNTER 2022-11-21 12:03 | Inpatient (IN) | payer OTHER ==
[2022-11-21] MEDS ORDERED: NA CHLORIDE 0.9% 500 ML ONE (12:19)
--- OUTSIDE RECORDS SUMMARY | 2022-11-21 12:23 | XMS REPORT | Continuity of Care Document ---
:1960 Author Organization [facility] [place] t Address [address] [facility] [address] [place] [address] Care Team Providers Name Role Phone AL AGUILAR Primary Care Physician Unavailable TAVO VIZCAINO Attending Clinician Unavailable Doctor Unassigned, [place] Attending Clinician Unavailable Al Aguilar MD Attending Clinician Payers Payer Name Policy Type Policy Number Effective Date [facility] Date [facility] [id number] 2016 00:00:00 PLUS Problems Condition Condition Condition Status Onset Resolution Last Treating Co mments Source Name Details Category Date Date Treatment Clinician Date Essential Essential Disease Active Uni vers hypertensi hypertensi 7-26 it y of on on 00:00: [address] Obesity Obesity Disease Active Univers (BMI (BMI 5-25 ity of 30-39.9) 30-39.9) 00:00: [address] [place] [address] Osteomyeli Osteomyeli Disease Active U shelley tis tis 5-24 ity of 00:00: [address] Positive Positive Disease Active 2015-06 Unive rs serology serology 1-15 ity of for for 00:00: [place] syphilis syphilis 00 Medica Branch 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 1-15 it y of ve ve 00:00: [address] Trichomoni Trichomoni Disease Active 2015-06 U [place] asis asis 0-26 ity of 00:00: [address] Tobacco Tobacco Disease Active 2015-06 Univers [...] nivers openia openia 6-17 ity of 00:00: [place] [facility] Alcohol Alcohol Disease Active Univers use use 6-17 ity of 00:00: [place] [facility] Thrombocyt Thrombocyt Disease Active U nivers openia openia 6-17 ity of 00:00: [place] [facility] Cervical Cervical Disease Active Unive [...] (hyperlipi (hyperlipi it y of demia) demia) [facility] Hepatic Hepatic Disease Active Univers cirrhosis cirrhosis ity of [facility] Acquired Acquired Disease Active Unive rs hypothyroi hypothyroi it y of dism dism [facility] Allergies, Adverse Reactions, Alerts Allergy Allergy Status Severity Reaction(s) Onset Inactive Treating Comm ents Source Name Type Date Date Clinician Penicill Propensi Active Rash 2006- Univer s ins ty to 02-04 ity of adverse 00:00: [place] reaction 00 [facility]ly [facility] PENICILL Drug Active Rash Univers INS Class 8- ity of 00:00: [place] [address] [facility] Penicill Propensi Active Rash 2006- Univer s ins ty to 02-04 ity of adverse 00:00: [place] reaction 00 [facility]ly [facility] Social History Social Habit Start Date Stop Date Quantity Comments Source History of tobacco Cigarette Smoker University of use [facility] Alcohol intake 2019-05-22 2019-05-22 .86 /d University of 00:00:00 00:00:00 [facility] Tobacco use and 2015-08-01 2015-08-01 Smokeless Universit y of exposure 00:00:00 00:00:00 tobacco [facility] Cigarettes smoked 2015-08-01 2015-08-01 Univers ity of current (pack per 00:00:00 00:00:00 [facility] ) - Reported Branch Cigarette 2015-08-01 2015-08-01 University of pack-years 00:00:00 00:00:00 [facility] Tobacco Comment 2014-12-26 2014-12-26 smokes 6 cig/day Uni versity of 00:00:00 00:00:00 [facility] Sex [birth year] At [birth year] Universit y of 00:00:00 00:00:00 [facility] Smoking Status Start Date Stop Date Source Smokes tobacco daily 2015-08-01 00:00:00 Univers ity of [facility] Medications Ordered Filled Start Stop Current Ordering Indication Dosage Frequency Signature Comments Components Source Medication Medication Date Date Medication? Clinician (SIG) Name Name gabapentin 2018-06 Yes [id number] 400mg Take 1 Univers (NEURONTIN) 2-14 capsule by it y of 400 mg 00:00: mouth 3 [place] capsule 00 (three) Medical times [place] daily. cyclobenzap 2018-06 Yes [id number] 10mg Take 1 Univers rine 10 mg 2-14 tablet by ity of tablet 00:00: mouth 3 [place] 00 (three) Medical times [place] daily. amLODIPine Yes [id number] 5mg Take 1 U nivers 5 mg tablet 7-26 tablet by ity of 00:00: mouth 00 daily. Medical Branch cyclobenzap Yes [id number] 10mg Take 1 Univers rine 10 mg 7-26 tablet by ity of tablet 00:00: mouth (three) Medical times Branch daily as needed for Muscle Spasms. gabapentin 2018- Yes [id number] 400mg Take 1 Univers 400 mg 7-26 capsule by ity of capsule 00:00: mouth (three) Medical times Branch daily. amLODIPine Yes [id number] 5mg Take 1 U nivers 5 mg tablet 7-26 tablet by ity of 00:00: mouth 00 daily. Medical Branch cyclobenzap Yes [id number] 10mg Take 1 Univers rine 10 mg 7-26 tablet by ity of tablet 00:00: mouth (three) Medical times Branch daily as needed for Muscle Spasms. gabapentin 2018- Yes [id number] 400mg Take 1 Univers 400 mg 7-26 capsule by ity of capsule 00:00: mouth (three) Medical times Branch daily. amLODIPine Yes [id number] 5mg Take 1 U nivers 5 mg tablet 7-26 tablet by ity of 00:00: mouth 00 daily. Medical Branch amLODIPine 2018-0 Yes [id number] 5mg Take 1 U nivers 5 mg tablet 7-26 tablet by ity of 00:00: mouth 00 daily. Medical Branch cyclobenzap Yes [id number] 10mg Take 1 Univers rine 10 mg 7-26 tablet by ity of tablet 00:00: mouth (three) Medical times Branch daily as needed for Muscle Spasms. gabapentin 2018- Yes [id number] 400mg Take 1 Univers 400 mg 7-26 [...] BY ity of mg tablet 00:00: MOUTH [place] 00 TWICE A Medical DAY Branch METOPROLOL 2018-0 2019- No TAKE 1 Univ ers TARTRATE 50 3-12 07-26 TABLET BY it y of mg tablet 00:00: 00:00 MOUTH [place] 00 :00 TWICE A Medical DAY Branch GABAPENTIN 2017- Yes TAKE 3 Unive rs 300 mg 0-27 CAPSULES ity of capsule 00:00: BY MOUTH [place] 00 THREE Medical TIMES Branch DAILY. GABAPENTIN 2016- 2019- No TAKE 3 Univ ers 300 mg 0-27 07-26 CAPSULES ity of capsule 00:00: 00:00 BY MOUTH [place] 00 :00 THREE Medical TIMES Branch DAILY. Walker 2017-0 Yes [id number] Use as Unive rs (ULTRA-LIGH 6-27 directed ity of T ROLLATOR) 00:00: [place] [address] Medical Branch Walker 2017-0 Yes [id number] Use as Unive rs (ULTRA-LIGH 6-27 directed ity of T ROLLATOR) 00:00: [place] [address] Medical Branch Walker 2017-0 Yes [id number] Use as Unive rs (ULTRA-LIGH 6-27 directed ity of T ROLLATOR) 00:00: [place] [address] Medical Branch Walker 2017-0 Yes [id number] Use as Unive rs (ULTRA-LIGH 6-27 directed ity of T ROLLATOR) 00:00: [place] [address] Medical Branch Craig 2017-0 Yes [id number] Use as Unive rs (ULTRA-LIGH 6-27 directed ity of T ROLLATOR) 00:00: [place] [address] Medical Branch metroNIDAZO 2017-0 Yes 500mg Take 1 Uni vers LE 500 mg 6-12 tablet by ity o f tablet 00:00: mouth 2 [place] (two) Medical times Branch daily. metroNIDAZO 2017-0 Yes 500mg Take 1 Uni vers LE 500 mg 6-12 tablet by ity o f tablet 00:00: mouth 2 [place] (two) Medical times Branch daily. metroNIDAZO 2017-0 Yes 500mg Take 1 Uni vers LE 500 mg 6-12 tablet by ity o f tablet 00:00: mouth 2 [place] (two) Medical times Branch daily. metroNIDAZO 2017-0 [...] by mouth ity of tablet 20:00: daily. [address] aspirin 81 2017-0 Yes 81mg Take 81 mg U nivers mg chewable 6-09 by mouth ity of tablet 20:00: daily. [address] aspirin 81 2017-0 Yes 81mg Take 81 mg U nivers mg chewable 6-09 by mouth ity of tablet 20:00: daily. [address] aspirin 81 2017-0 Yes 81mg Take 81 mg U nivers mg chewable 6-09 by mouth ity of tablet 20:00: daily. [address] aspirin 81 2017-0 Yes 81mg Take 81 mg U nivers mg chewable 6-09 by mouth ity of tablet 15:00: daily. [address] KCL 10 mEq 2017-0 Yes [id number] 10meq Take 1 Univers tablet 6-09 tablet by ity of 00:00: mouth [place] 00 daily. Medical Branch KCL 10 mEq Yes [id number] 10meq Take 1 Univers tablet 6-09 tablet by ity of 00:00: mouth [place] 00 daily. Medical Branch KCL 10 mEq Yes [id number] 10meq Take 1 Univers tablet 6-09 tablet by ity of 00:00: mouth [place] 00 daily. Medical Branch KCL 10 mEq Yes [id number] 10meq Take 1 Univers tablet 6-09 tablet by ity of 00:00: mouth [place] 00 daily. Medical Branch KCL 10 mEq Yes [id number] 10meq Take 1 Univers tablet 6-09 tablet [...] times Medical daily. Branch acetaminoph 2015-06 Yes [id number] 1{tbl} Take 1 Univers en-codeine 1-17 07 tablet by ity of (TYLENOL 00:00: mouth [place] #3) 300-30 00 every 6 Medica l mg tablet (six) Branch hours as needed for Pain (scale 7-10) or Pain unrelieved by non-narcot ic analgesics . acetaminoph 2015-06 2019- No [id number] 1{tbl} Take 1 Univers en-codeine -17 01-01 [...] Immunizations Ordered Filled Immunization Date Status Comments [facility] e Immunization Name Name TDAP (ADACEL) 2016-04-25 Completed University of VACCINE 00:00:00 [facility] TDAP (ADACEL) 2016-04-25 Completed University of VACCINE 00:00:00 [facility] TDAP (ADACEL) 2016-04-25 Completed University of VACCINE 00:00:00 [facility] TDAP (ADACEL) 2016-04-25 Completed University of VACCINE 00:00:00 [facility] TDAP (ADACEL) 2016-04-25 Completed University of VACCINE 00:00:00 [facility] Influenza Virus 2016-04-01 Completed Universit y of Vaccine Quad IM 00:00:00 [place] Med ical Multi-dose 6+ MO Branch Influenza [...] y of Vaccine Quad IM 3+ 00:00:00 [facility] Pneumococcal 2015-08-24 Completed University o f Polysaccharide, 00:00:00 [place] Med ical PPSV23 (PNEUMOVAX) Branch Influenza Virus 2015-08-24 Completed Universit y of Vaccine Quad IM 3+ 00:00:00 [facility] Pneumococcal 2015-08-24 Completed University o f Polysaccharide, 00:00:00 [place] Med ical PPSV23 (PNEUMOVAX) Branch Influenza Virus 2015-08-24 Completed Universit y of Vaccine Quad IM 3+ 00:00:00 [facility] Pneumococcal 2015-08-24 Completed University o f Polysaccharide, 00:00:00 [place] Med ical PPSV23 (PNEUMOVAX) Branch Influenza Virus 2015-08-24 Completed Universit y of Vaccine Quad IM 3+ 00:00:00 [facility] Pneumococcal 2015-08-24 Completed University o f Polysaccharide, 00:00:00 [place] Med ical PPSV23 (PNEUMOVAX) Branch Influenza Virus 2015-08-24 Completed Universit y of Vaccine Quad IM 3+ 00:00:00 [facility] HEPATITIS A 2014-10-06 Completed University of 00:00:00 [facility] Vital Signs Vital Name Observation Time Observation Value Comments Source Systolic blood 2019-01-01 13:32:00 142 mm[Hg] Univer sity of pressure [facility] Diastolic blood 2019-01-01 13:32:00 100 mm[Hg] Unive rsity of pressure [facility] Heart rate 2019-01-01 13:32:00 86 /min [facility] Body temperature 2019-01-01 13:32:00 [facility] height 2019-01-01 13:32:00 165.1 cm [facility] Body weight 2019-01-01 13:32:00 81.647 kg [facility] BMI 2019-01-01 13:32:00 29.95 kg/m2 [facility] Procedures Procedure Date / Time Performing Clinician Source Performed REFERRAL- 2022-04-07 05:01:00 Doctor Unassigned, No [facility] REQUEST/RESPONSE Name [facility] AUTHORIZATION FOR 2019-02-18 05:01:00 Doctor Unassigned, No [facility] RELEASE OF PHI Name [facility] COMP. METABOLIC PANEL 2019-01-01 13:52:00 Al Aguilar Un [facility] ([id number]) Medical [place] LIPID PANEL 2019-01-01 13:52:00 Al Aguilar [facility] ([id number])(TOTAL [facility] Branch CHOLESTEROL, TRIGLYCERIDES, HDL) CBC WITH DIFFERENTIAL 2019-01-01 13:52:00 Al Aguilar Un [facility] ASSIGNMENT OF BENEFITS 2019-01-01 13:15:46 Doctor Unassigned, No [facility] Name [facility] Encounters Start End Encounter Admission Attending Care Care Encounter Source Date/Time Date/Time Type Type Clinicians Facility Department ID 2022-10-02 2022-10-02 Outpatient SFA SFA [id number] Ramez 09:05:54 09:05:54 [id number] [facility] 2022-09-05 2022-09-05 Outpatient Shonda VIZCAINO [facility] [id number] Univers 14:00:00 14:00:00 [facility] 2022-07-24 2022-07-24 Outpatient Shonda VIZCAINO [facility] [id number] Univers 13:15:00 13:15:00 [facility] 2022-06-26 2022-06-26 Outpatient SFA SFA [id number] Ramez 10:10:22 10:10:22 [id number] [facility] 2022-04-07 2022-04-07 Orders Doctor FLANNERY [id number] Univers 00:00:00 00:00:00 Only Unassigned, TAYLOR [id number] ity of [place] [facility] 4.2.7.2.686 Juno as [phone] [address] 2022-03-26 2022-03-26 Outpatient SFA SFA [id number] Ramez 10:47:27 10:47:27 [id number] [place] 2019-02-18 2019-02-18 Orders Doctor FLANNERY [id number] [id number] Univers 00:00:00 00:00:00 Only Unassigned, TAYLOR [id number] ity of [place] [facility] 4.2.7.2.686 Juno as [phone] [address] 2019-01-24 2019-01-24 Refill Goran [facility] [id number] Univers 00:00:00 00:00:00 [facility] [id number] ity of [place] [id number] Juno as Professio [phone] Mi dictx nal [address] [facility] [address] 2019-01-01 2019-01-01 Office Goran [facility] [id number] [facility] 08:17:32 09:01:49 Visit Al [facility] [id number] ity of [place] [id number] Juno as Professio [phone] Mi dictx nal [address] [place] [address] [facility] 2019-01-01 2019-01-01 Orders Doctor PRUDENCIO [id number] Univers 00:00:00 00:00:00 Only Unassigned, TAYLOR [id number] ity of [place] [facility] [id number] Juno as [phone] [address] Results Test Description Test Time Test Comments Results Result Comments Source TSH, THIRD GENERATION 2022-01-02 04:53:46 Test Item Value Reference Range Interpretation Comme nts TSH, THIRD GENERATION (test 89.300 UIU/ML 0.400-4.100 H UNLESS OTHERWISE INDICATED, code = 2821) ALL TESTING PER FORMED ATCLINICAL PATH [facility], I IN. 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 [id number] CBC W/AUTO DIFF WITH [id number] 04:43:48 Test Item Value Reference Range Interpretation [...] RBCS 0.00 K/UL 0.00-0.11 (test code = 90125) LIPID [id number] 03:18:10 Test Item Value Reference Range Interpretation [...] MOREINFORMATION , SEE CLIENT ANNOUNCE MENT AT [email or web address] RISK RATIO LDL/HDL 1.78 RATIO <3.22 (test code = 2238) COMPREHENSIVE METABOLIC [id number] 03:18:10 Test Item Value Reference Range Interpretation Comments GLUCOSE (test code = 98 MG/DL 70-99 2216) BUN (test code = 12 MG/DL 8-23 2207) CREATININE (test 0.81 MG/DL 0.60-1.30 code = 221) eGFR (2020 CKD-EPI) 83 ML/MIN/1.73 >60 (test code = 72225) CALC BUN/CREAT (test 15 RATIO 6-28 code = 2235) SODIUM (test code = 141 MEQ/L 330-976 1922) POTASSIUM (test code 4.3 MEQ/L 3.5-5.4 = [...] U/L 5-40 H 2219) COMP. METABOLIC PANEL (88755)2019-01-01 16:13:00 Test Item Value Reference Range Interpretation Comments NA (test code = 142 mmol/L 135-145 9072240226) K (test code = 5.6 mmol/L 3.5-5 H 5941731547) CL (test code = 106 mmol/L 98-108 4925581104) CO2 TOTAL (test code = 28 mmol/L 23-31 5063929994) AGAP (test code = 2-16 9436909967) BUN (test code = 6 mg/dL 7-23 L 3250818052) GLUCOSE (test code = 105 mg/dL 70-110 7906858117) CREATININE (test code = 0.79 mg/dL 0.5-1.04 5973556903) TOTAL BILI (test code = 1.3 mg/dL 0.1-1.1 H 7392067534) CALCIUM (test code = 9.1 mg/dL 8.6-10.6 0061703494) T PROTEIN (test code = 8.7 g/dL 6.3-8.2 H 9932241232) ALBUMIN (test code = 4.0 g/dL 3.5-5 6140198459) ALK PHOS (test code = 72 U/L 34-122 4103215286) ALT(SGPT) (test code = 58 U/L 9-51 H 7672552242) AST(SGOT) (test code = 87 U/L 13-40 H 0361094183) eGFR Calculation mL/min/1.73m2 (Non-) (test code = 6040072756) eGFR Calculation mL/min/1.73m2 () (test code = 3390131840) ROMY (test code = ROMY) Association of [...] tests). Lab Interpretation Abnormal (test code = 95741-7) [facility]TOTAL CHOLESTEROL, TRIGLYCERIDES, HDL)2019-01-01 16:13:00 Test Item Value Reference Range Interpretation Comments CHOL (test code = 160 mg/dL 120-200 0738347002) HDL (test code = 61 mg/dL >50 6938626223) HDLC RATIO (test code = See_Comment [Au tomated message] 7006598646) The system Lytro generated this result transmit amelie reference range : <=4.5. The refe rence range was not u sed to interpret th is result as normal/abnormal . TRIG (test code = 73 mg/dL 30-170 9527420990) LDL CHOL (test code = 84 mg/dL See_Comment [Auto mated message] 97470-4) The system Lytro generated this result transmit amelie reference range : <=160. The refe rence range was not u sed to interpret th is result as normal/abnormal . VLDL (test code = 15 mg/dL 5-60 4999312294) Lab Interpretation (test Normal code = 97625-5) [facility] [place] [facility]"
[2022-11-21 12:57] LABS: Absolute Lymphocytes (CBC) 0.9 K/uL (0.7-4.9); Lymphocytes % 21.2 % (15.3-44.8); MCV 94.8 fL (80-100); MPV 7.8 fL (7.6-11.3); RBC Red Blood Cell Count 3.59 M/uL (3.86-4.86)
[2022-11-21 13:08] LABS: Specific Gravity 1.015 (1.005-1.030); Urine Bacteria 20-50 /HPF (<20); Urine Bilirubin 1+ (Negative); Urine Blood Negative (Negative); Urine Clarity Extremely Turbid (Clear); Urine Color Dark-Yellow (Yellow); Urine Glucose NEGATIVE (Negative); Urine Mucus Slight /HPF (None Seen); Urine Protein TRACE (Negative); Urine RBC <5 /HPF (None Seen); Urine Urobilinogen 4+ (Over) (Normal)
--- NOTE | 2022-11-21 13:13 | RAD REPORT ---
EXAM DESCRIPTION: RAD - Chest Single View - 11/21/2022 1:06 pm CLINICAL HISTORY: COUGH Chest pain. COMPARISON: <Comparisons> FINDINGS: Portable technique limits examination quality. Moderate airspace opacity is present in the medial right lung base likely representing infection/pneu monia. The heart is mildly prominent size. Mild asymmetric interstitial opacities, greater on the rig ht.Hardware is present lower cervical spine. IMPRESSION: Moderate airspace opacity medial right lung base likely pneumonia.
[2022-11-21 13:17] LABS: Albumin 2.7 g/dL (3.4-5.0); Potassium 3.1 mEq/L (3.5-5.1); Protein, Total 6.7 g/dL (6.4-8.2); Troponin High Sensitivity 10.9 pg/mL (<58.9)
--- NOTE | 2022-11-21 13:24 | RAD REPORT ---
EXAM DESCRIPTION: RAD - Pelvis - 11/21/2022 1:06 pm CLINICAL HISTORY: fall COMPARISON: Pelvis dated 11/13/2022 FINDINGS: Diffuse osteopenia is seen. No acute fracture, dislocation or AVN seen. IMPRESSION: No acute fractures seen. Pain persists or progresses, MR imaging could be performed for further detail given the degree of osteopenia.
--- NOTE | 2022-11-21 13:39 | RAD REPORT ---
EXAM DESCRIPTION: CT - CTHCSPWOC - 11/21/2022 1:25 pm CLINICAL HISTORY: Trauma, head and neck injury. CONFUSED COMPARISON: Head C Spine Mpr Wo Con dated 11/13/2022; Neck Angio dated 11/01/2022; Head C Spine Mpr Wo Con dated 05/20/2019; Head C Spine Mpr Wo Con dated 05/10/2019 TECHNIQUE: Axial 5 mm thick images of the head were obtained. Axial 2 mm thick images of the cervical spine were obtained with sagittal and coronal reconstruction images generated and reviewed. All CT scans are performed using dose optimization technique as appropriate and may include automated exposure control or mA/KV adjustment according to patient size. FINDINGS: CT HEAD WITHOUT CONTRAST: No acute hemorrhage, hydrocephalus or extra-axial collection is identified.Mild periventricular and d eep white matter chronic microvascular ischemic changes.No areas of brain edema or midline shift. The paranasal sinuses and mastoids are clear.The calvarium is intact. CT CERVICAL SPINE WITHOUT CONTRAST: No fracture or subluxation.Postsurgical changes are present spanning C3-[address] enlarge posterior laminectomies.No prevertebral soft tissues swelling is identified. IMPRESSION: No acute intracranial or cervical spine findings.
[2022-11-21] MEDS ORDERED: CEFTRIAXONE 1000 MG/VIAL ONE (13:48)
[2022-11-21] MEDS ORDERED: AZITHROMYCIN 500 MG INJ IVPB ONE (13:49)
[2022-11-21] MEDS ORDERED: NA CHLORIDE 0.9% 250 ML ONE (13:49)
--- NOTE | 2022-11-21 14:04 | RAD REPORT ---
EXAM DESCRIPTION: US - Extrem Venous W [employer] [place] - 11/21/2022 1:56 pm CLINICAL HISTORY: leg swelling Bilateral leg edema and swelling. COMPARISON: Extremity Venous [facility] Ltd dated 08/08/2021 TECHNIQUE: Real-time sonographic interrogation of the left and right lower extremity deep venous sys tems was performed. FINDINGS: Normal compressibility, flow augmentation, phasic flow and spontaneous flow is identified in both the left and right lower extremity deep venous systems. IMPRESSION: No sonographic evidence of left or right lower extremity deep venous thrombosis.
--- NOTE | 2022-11-21 14:23 | EDPHYS ---
Physician Documentation [facility] Name: Maisha Leo Age: 62 yrs Sex: Female : 1960 Arrival Date: 11/21/2022 Time: 12:03 Bed 13 Private MD: ED Physician Tolu Lance HPI: 11/21 12:09 This 62 yrs old Female presents to ER via EMS with complaints of Fall Injury. bs3 12:09 62-year-old female history of bipolar disorder CVA COPD seen 3 times in this month for bs3 falls presents with recurrent fall when ambulating patient is a very poor historian she states that she stays with friends she notes that she was walking to [employer] when she fell she is not sure exactly what happened but does not think that she passed out. Historical: - Allergies: 12:06 PENICILLINS; kc6 - PMHx: 12:06 ADD/ADHD; Bipolar disorder; Cerebrovascular accident; Cirrhosis; COPD; CVA; Left sided kc6 weakness; Fibromyalgia; Hypertension; Hypothyroidism; Myocardial infarction; Seizures; - PSHx: 12:06 right big toe; kc6 - Immunization history:: Client reports receiving the 2nd dose of the Covid vaccine, Flu vaccine is not up to date. - Social history:: Smoking status: Patient reports the use of cigarette tobacco products, smokes one-half pack cigarettes per day. ROS: 12:09 Constitutional: Negative for fever, chills bs3 12:09 All other systems are negative. Exam: 12:09 Constitutional: Patient appears frail she appears older than her stated age she is bs3 disheveled Head/Face: Left periorbital ecchymosis which appears chronic and old Eyes: Pupils equal round and reactive to light, extra-ocular motions intact. Lids and lashes normal. ENT: mmm, no posterior phyarngeal erythema Neck: Trachea midline, no thyromegaly, no neck stiffness Chest/axilla: Normal chest wall appearance and motion. Nontender with no deformity. No lesions are appreciated. Cardiovascular: Regular rate and rhythm with a normal S1 and S2. symmetric pulses in upper extremities Respiratory: Lungs have equal breath sounds bilaterally, clear to auscultation, no respiratory distress Abdomen/GI: Soft, non-tender, no rebound or guarding Back: C-spine tenderness, no T or L-spine tenderness Skin: Warm, dry with normal turgor. Normal color with no rashes, no lesions, and no evidence of cellulitis. MS/ Extremity: 2+ pitting edema bilaterally, no focal tenderness but complaining of pain all over Neuro: Awake and alert, GCS 15, oriented to person, place, time, and situation. Cranial nerves II-XII grossly intact. Motor strength 5/5 in all extremities. Sensory grossly intact. 13:37 ekg [address] elevation or depression qtc 475 bs3 Vital Signs: 12:05 BP 110 / 71; Pulse 99; Resp 18 S; Temp 98.6(O); Pulse Ox 92% on R/A; Weight 72.57 kg kc6 (R); Height 5 ft. 5 in. (R); 12:45 BP 90 / 64; Pulse 93; Resp 14 S; Pulse Ox 93% on R/A; kc6 13:39 Pulse 94; Resp 14 S; Pulse Ox 96% on R/A; kc6 14:21 BP 112 / 76; Pulse 93; Resp 14 S; Pulse Ox 98% on R/A; kc6 16:52 BP 108 / 69; Pulse 97; Resp 14 S; Pulse Ox 94% on R/A; kc6 12:05 Body Mass Index 26.63 (72.57 kg, 165.1 cm) kc6 MDM: 12:05 Patient medically screened. bs3 12:09 Differential diagnosis: abrasion, closed head injury, contusion, fracture, sprain, bs3 strain. Data reviewed: vital signs, nurses notes. ED course: We will check labs we will hydrate we will rule out DVT, will r/o rhabdo, will r/o ich, pt had recent trauma workup here. . 13:27 ED course: X-ray concerning for pneumonia will cover with antibiotics given the fall bs3 generalized weakness will admit for weakness secondary to pneumonia. 14:21 ED course: d/w Dr. Hopper who agreed to admit. . bs3 11/21 12:09 Order name: CBC with Diff; Complete Time: 13:08 bs3 11/21 12:09 Order name: Comprehensive Metabolic Panel; Complete Time: 13:26 bs3 11/21 12:09 Order name: Troponin High Sensitivity; Complete Time: 13:26 bs3 11/21 12:09 Order name: Urinalysis w/ reflexes; Complete Time: 13:26 bs3 11/21 12:09 Order name: BNP; Complete Time: 13:26 bs3 11/21 12:09 Order name: CK; Complete Time: 13:26 bs3 11/21 13:13 Order name: Urine Culture EDMS 11/21 16:30 Order name: CBC with Automated Diff EDMS 11/21 16:30 Order name: CBC with Automated Diff EDMS 11/21 16:30 Order name: Comprehensive Metabolic Panel EDMS 11/21 16:30 Order name: Comprehensive Metabolic Panel EDMS 11/21 16:30 Order name: Protime (+INR) EDMS 11/21 16:30 Order name: Protime (+INR) EDMS 11/21 16:30 Order name: PTT, Activated Partial Thromb EDMS 11/21 16:30 Order name: PTT, Activated Partial Thromb EDMS 11/21 12:09 Order name: CT Head C Spine; Complete Time: 14:10 bs3 11/21 12:09 Order name: XRAY Chest (1 view); Complete Time: 13:26 bs3 11/21 12:09 Order name: US Extremity Venous W Compression [place]; Complete Time: 14:10 bs3 11/21 12:09 Order name: XRAY Pelvis; Complete Time: 13:26 bs3 11/21 16:32 Order name: Hip in OR Right 2 View EDMS 11/21 16:32 Order name: Knee Right 2 View EDMS 11/21 17:48 Order name: RAD EDMS 11/21 14:24 Order name: Diet Heart Healthy; Complete Time: 14:43 kc6 11/21 12:09 Order name: EKG - Nurse/Tech; Complete Time: 12:44 bs3 Administered Medications: 12:44 Drug: NS 0.9% IV 500 ml Route: IV; Rate: 1 bolus; Site: left wrist; kc6 13:45 Follow up: Response: No adverse reaction; IV Status: Completed infusion; IV Intake: kc6 500ml 14:13 Drug: AZITHromycin IVPB 500 mg Route: IVPB; Infused Over: 1 hrs; Site: left wrist; kc6 15:30 Follow up: Response: No adverse reaction; IV Status: Completed infusion; IV Intake: kc6 250ml 14:14 Drug: Rocephin IV 1 grams Route: IV; Rate: 1 bolus; Site: left wrist; kc6 15:15 Follow up: Response: No adverse reaction; IV Status: Completed infusion; IV Intake: 55vefe7 14:31 Drug: Acetaminophen PO 1000 mg Route: PO; kc6 16:54 Follow up: Response: No adverse reaction; Pain is decreased kc6 Disposition Summary: 11/21/22 14:23 Hospitalization Ordered Hospitalization Status: Observation bs3 Provider: Raoul Hopper bs3 Location: Telemetry/MedSurg (observation) bs3 Condition: Fair bs3 Problem: new bs3 Symptoms: have improved bs3 Bed/Room Type: Standard bs3 Room Assignment: 209(11/21/22 17:01) dw Diagnosis - Pneumonia, unspecified organism bs3 - UTI/ Urinary tract infection, site not specified bs3 - Syncope Near bs3 Forms: - Medication Reconciliation Form bs3 - SBAR form bs3 Signatures: Dispatcher [employer] Rekha Garibay RN RN dw Campbell, Kaitlyn, RN RN kc6 Tolu Lance MD MD bs3 Corrections: (The following items were deleted from the chart) 17:01 14:23 bs3 dw
--- NOTE | 2022-11-21 14:23 | ER ---
Nurse's Notes [facility] Name: Maisha Leo Age: 62 yrs Sex: Female : 1960 Arrival Date: 11/21/2022 Time: 12:03 Bed 13 Private MD: Diagnosis: Pneumonia, unspecified organism;UTI/ Urinary tract infection, site not specified;Syncope Near Presentation: 11/21 12:05 Chief complaint: EMS states: pt was walking on the side of the road in [place] with a kc6 walker when she had an unwitnessed fall. pt reports hitting her head. BGL 106. Coronavirus screen: At this time, the client does not indicate any symptoms associated with coronavirus-19. Ebola Screen: No symptoms or risks identified at this time. Initial Sepsis Screen: Does the patient meet any 2 criteria? No. Patient's initial sepsis screen is negative. Does the patient have a suspected source of infection? No. Patient's initial sepsis screen is negative. Risk Assessment: Do you want to hurt yourself or someone else? Patient reports no desire to harm self or others. Onset of symptoms was November 21, 2022. 12:05 Method Of Arrival: EMS: [facility] kc6 12:05 Acuity: ARTURO 3 kc6 Triage Assessment: 12:06 General: Appears in no apparent distress. comfortable, unkempt, Behavior is calm, kc6 cooperative, appropriate for age. Pain: Complains of pain in back. EENT: No signs and/or symptoms were reported regarding the EENT system. Neuro: Level of Consciousness is awake, alert, obeys commands, Oriented to person, place, time, situation, Appropriate for age. Cardiovascular: Capillary refill < 3 seconds. Respiratory: Airway is patent Trachea midline Respiratory effort is even, unlabored, Respiratory pattern is regular, symmetrical. GI: No signs and/or symptoms were reported involving the gastrointestinal system. : No signs and/or symptoms were reported regarding the genitourinary system. Derm: No signs and/or symptoms reported regarding the dermatologic system. Skin is intact, Skin is pink, warm \T\ dry. Musculoskeletal: No signs and/or symptoms reported regarding the musculoskeletal system. Circulation, motion, and sensation intact. Capillary refill < 3 seconds, Range of motion: intact in all extremities. Historical: - Allergies: 12:06 PENICILLINS; kc6 - PMHx: 12:06 ADD/ADHD; Bipolar disorder; Cerebrovascular accident; Cirrhosis; COPD; CVA; Left sided kc6 weakness; Fibromyalgia; Hypertension; Hypothyroidism; Myocardial infarction; Seizures; - PSHx: 12:06 right big toe; kc6 - Immunization history:: Client reports receiving the 2nd dose of the Covid vaccine, Flu vaccine is not up to date. - Social history:: Smoking status: Patient reports the use of cigarette tobacco products, smokes one-half pack cigarettes per day. Screenin:07 [facility] ED Fall Risk Assessment (Adult) History of falling in the last 3 months, kc6 including since admission Yes- single mechanical fall (1 pt) Confusion or Disorientation No (0 pts) Intoxicated or Sedated No (0 pts) Impaired Gait Yes (1 pt) Mobility Assist Device Used Yes (1 pt) Altered Elimination No (0 pt) Score/Fall Risk Level 3 or more points = High Risk Oriented to surroundings, Maintained a safe environment, Educated pt \T\ family on fall prevention, incl call for assistance when getting out of bed, Assessed \T\ reinforced patient's understanding of fall precautions, Provided non-skid footwear, Used ambulatory aids as needed (educated on \T\ assisted with). Abuse screen: Denies threats or abuse. Denies injuries from another. Nutritional screening: No deficits noted. Tuberculosis screening: No symptoms or risk factors identified. Assessment: 12:45 Reassessment: please see triage assessment. kc6 13:05 Reassessment: Patient appears in no apparent distress at this time. No changes from kc6 previously documented assessment. Patient and/or family updated on plan of care and expected duration. Pain level reassessed. Patient is alert, oriented x 3, equal unlabored respirations, skin warm/dry/pink. 14:05 Reassessment: Patient appears in no apparent distress at this time. No changes from kc6 previously documented assessment. Patient and/or family updated on plan of care and expected duration. Pain level reassessed. Patient is alert, oriented x 3, equal unlabored respirations, skin warm/dry/pink. 15:05 Reassessment: Patient appears in no apparent distress at this time. No changes from kc6 previously documented assessment. Patient and/or family updated on plan of care and expected duration. Pain level reassessed. Patient is alert, oriented x 3, equal unlabored respirations, skin warm/dry/pink. 16:05 Reassessment: Patient appears in no apparent distress at this time. No changes from 6 previously documented assessment. Patient and/or family updated on plan of care and expected duration. Pain level reassessed. Patient is alert, oriented x 3, equal unlabored respirations, skin warm/dry/pink. 17:05 Reassessment: Patient appears in no apparent distress at this time. No changes from kc6 previously documented assessment. Patient and/or family updated on plan of care and expected duration. Pain level reassessed. Patient is alert, oriented x 3, equal unlabored respirations, skin warm/dry/pink. 17:21 Reassessment: attempted to call report. nurse unavailable at this time. kc6 Vital Signs: 12:05 BP 110 / 71; Pulse 99; Resp 18 S; Temp 98.6(O); Pulse Ox 92% on R/A; Weight 72.57 kg kc6 (R); Height 5 ft. 5 in. (R); 12:45 BP 90 / 64; Pulse 93; Resp 14 S; Pulse Ox 93% on R/A; kc6 13:39 Pulse 94; Resp 14 S; Pulse Ox 96% on R/A; kc6 14:21 BP 112 / 76; Pulse 93; Resp 14 S; Pulse Ox 98% on R/A; kc6 16:52 BP 108 / 69; Pulse 97; Resp 14 S; Pulse Ox 94% on R/A; kc6 12:05 Body Mass Index 26.63 (72.57 kg, 165.1 cm) 6 ED Course: 12:05 Patient arrived in ED. kc6 12:05 Tolu Lance MD is Attending Physician. bs3 12:06 Triage completed. kc6 12:08 Arm band placed on. kc6 12:08 Patient has correct armband on for positive identification. Bed in low position. [facility] light in reach. Side rails up X2. 12:10 Sierra Pederson RN is Primary Nurse. kc6 12:44 Inserted saline lock: 20 gauge in left wrist, using aseptic technique. Blood collected. kc6 12:48 Morales cath inserted, using sterile technique, 16 Fr., by nc, balloon inflated, to kc6 gravity drainage, clamped. urine specimen collected. 13:08 XRAY Chest (1 view) In Process Unspecified. EDMS 13:08 XRAY Pelvis In Process Unspecified. EDMS 13:27 CT Head C Spine In Process Unspecified. EDMS 13:57 US Extremity Venous W Compression [place] In Process Unspecified. EDMS 14:21 Tolu Lance MD is Hospitalizing Provider. bs3 14:22 Raoul Hopper MD is Hospitalizing Provider. bs3 18:22 No provider procedures requiring assistance completed. Patient admitted, IV remains in kc6 place. Administered Medications: 12:44 Drug: NS 0.9% IV 500 ml Route: IV; Rate: 1 bolus; Site: left wrist; kc6 13:45 Follow up: Response: No adverse reaction; IV Status: Completed infusion; IV Intake: kc6 500ml 14:13 Drug: AZITHromycin IVPB 500 mg Route: IVPB; Infused Over: 1 hrs; Site: left wrist; kc6 15:30 Follow up: Response: No adverse reaction; IV Status: Completed infusion; IV Intake: kc6 250ml 14:14 Drug: Rocephin IV 1 grams Route: IV; Rate: 1 bolus; Site: left wrist; kc6 15:15 Follow up: Response: No adverse reaction; IV Status: Completed infusion; IV Intake: 21mtng3 14:31 Drug: Acetaminophen PO 1000 mg Route: PO; kc6 16:54 Follow up: Response: No adverse reaction; Pain is decreased kc6 Medication: 18:23 VIS not applicable for this client. kc6 Intake: 13:45 IV: 500ml; Total: 500ml. kc6 15:15 IV: 10ml; Total: 510ml. kc6 15:30 IV: 250ml; Total: 760ml. kc6 Outcome: 14:23 Decision to Hospitalize by Provider. bs3 18:22 Admitted to Med/surg accompanied by tech, via stretcher, room 209, with chart, Report kc6 called to AZIZA Pearsno 18:22 Condition: improved 18:22 Instructed on the need for admit. 18:27 Patient left the ED. kc6 Signatures: Dispatcher [employer] Sierra Wagner RN RN kc6 Tolu Lance MD MD bs3
[2022-11-21] MEDS ORDERED: ACETAMINOPHEN 500 MG TAB ONE (14:34)
[2022-11-21] MEDS ORDERED: ONDANSETRON 4 MG/2 ML VIAL IV PRN (16:26)
[2022-11-21] MEDS ORDERED: NA CHLORIDE 0.9% 1,000 ML IV SCH (17:00)
--- NOTE | 2022-11-21 17:45 | RAD REPORT ---
EXAM DESCRIPTION: RAD - Knee Right 2 View - 11/21/2022 5:17 pm CLINICAL HISTORY: pain Knee pain and swelling. COMPARISON: Knee Right 2 View dated 11/16/2022; Knee Right 3 View dated 10/27/2022 FINDINGS: Mild arthritic changes are present in all 3 joint compartments, greatest laterally. No acu te fracture or dislocation. Small suprapatellar joint effusion. Moderate soft tissue swelling anterio r knee.
--- NOTE | 2022-11-21 17:47 | RAD REPORT ---
EXAM DESCRIPTION: RAD - Hip Right 2 View - 11/21/2022 5:17 pm CLINICAL HISTORY: pain COMPARISON: No comparisons FINDINGS: Mild arthritic changes are present involving the right hip. No fracture, dislocation or AV N.
[2022-11-21] MEDS ORDERED: NA CHLORIDE 0.9% 1,000 ML ONE (17:54)
[2022-11-21] MEDS ORDERED: MORPHINE 2 MG/ML SYR ONE (17:54)
[2022-11-21] MEDS: MORPHINE 2 MG/ML SYR IV PRN (18:01)
--- NOTE | 2022-11-22 02:29 | P.HP ---
Certification for Inpatient Patient admitted to: Inpatient With expected LOS: >2 Midnights Patient will require the following post-hospital care: None Practitioner: I am a practitioner with admitting privileges, knowledge of patient current condition, hospital course, and medical plan of care. Services: Services provided to patient in accordance with Admission requirements found in Title 42 Section 412.3 of the Code of Federal Regulations Patient History Date of Service: 11/21/22 Reason for admission: Anasarca; acute CHF exacerbation History of Present Illness: Patient is a 63-year-old female who came to the hospital with difficulty breathing. [place] came and helped her and brought her to the emergency room. Patient was confused and obtunded. Patient has a history of cardiomyopathy and the decision was made to admit the patient to the hospital for further evaluation.Patient has a longst anding history of drug abuse. Patient abuses cocaine. Patient has been living with friends in the area. She was living with a man who kicked her out and patient has been homeless since then. Patient was found on the streets confused and falling over. Decision was made to admit the patient to the hospital after she came in with anasarca and shortness of breath. Allergies Penicillins Allergy (Intermediate, Verified 04/18/19 23:29) Anaphylaxis Home Medications: Amitriptyline [Elavil*] 50 mg PO BEDTIME 09/03/22 Amlodipine [Norvasc*] 10 mg PO DAILY 09/03/22 Gabapentin 600 mg PO TID 09/03/22 Trazodone HCl 100 mg PO BEDTIME PRN 09/03/22 levETIRAcetam [Keppra*] 1 tab PO BID 10/27/22 Atorvastatin Calcium [Lipitor*] 40 mg PO BEDTIME #30 tab 11/04/22 Levothyroxine [Synthroid*] 0.125 mg PO DAILYAC #30 tab 11/04/22 - Past Medical/Surgical History Has patient received pneumonia vaccine in the past: No Diabetic: No -: Hypothyroidism -: HTN -: Anxiety -: Seizures -: HX ME x2 -: HX CVA - Left side wekness -: Osteoarthritis -: Hepatitis C -: liver cirrhosis -: Geovanny's paralysis -: Neck Surgery -: Tubal Ligation Psychosocial/ Personal History: Patient was at home with family - Family History Mother Medical History: Heart disease, Diabetes Father Medical History: Other (see notes) Notes: Alzheimers Brother Medical History: Other (see notes) Notes: COPD, Bone Cancer, Back Surgery - Social History Smoking Status: Current every day smoker Alcohol use: Yes Caffeine use: Yes Review of Systems 10-point ROS is otherwise unremarkable Physical Examination - Vital Signs Temperature: 97.9 F Blood Pressure: 98/62 Pulse: 97 Respirations: 18 Pulse Ox (%): 91 - Physical Exam General: Alert, In no apparent distress, Oriented x3 HEENT: Atraumatic, PERRLA, Mucous membr. moist/pink, EOMI, Sclerae nonicteric Neck: Supple, 2+ carotid pulse no bruit, No LAD, JVD distended Respiratory: Clear to auscultation bilaterally, Crackles/rales Cardiovascular: Regular rate/rhythm, Normal S1 S2, Systolic murmur Gastrointestinal: Normal bowel sounds, Soft and benign, Non-distended, No tenderness Musculoskeletal: No clubbing, No swelling, No tenderness Integumentary: No rashes Neurological: Normal speech, Normal strength at 5/5 x4 extr, Normal tone, Sensation intact, Cranial nerves 3-12 intact, Normal affect, Abnormal gait Lymphatics: No axilla or inguinal lymphadenopathy - Studies Laboratory Data (last 24 hrs) 11/21/22 12:48: Sodium 139, Potassium 3.1 L, BUN 12, Creatinine 0.68, Glucose 97, Total Bilirubin 3.0 H, AST 39 H, ALT 27, Alkaline Phosphatase 66 11/21/22 12:48: WBC 4.20 L, Hgb 11.6 L, Hct 34.0 L, Plt Count 159 Assessment & Plan - Problems (Diagnosis) (1) Homeless Current Visit: No Status: Acute (2) Liver cirrhosis Current Visit: No Status: Acute (3) Cocaine abuse Onset Date: 11/18/17 Current Visit: No Status: Chronic (4) Hepatitis C Current Visit: No Status: Chronic (5) History of CVA (cerebrovascular accident) Current Visit: No Status: Chronic (6) Hx of myocardial infarction Current Visit: No Status: Chronic (7) Hypertension Current Visit: No Status: Chronic (8) Hypothyroidism Onset Date: 11/18/17 Current Visit: No Status: Chronic Qualifiers: (9) Altered mental status Current Visit: No Status: Resolved - Plan 1. 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 SW asst with placement 4. Cardiology consultation 5. Aggressive diuresis 6. Strict I's and O's 7. Repeat CXR 8. Daily weights 9. Education regarding diet and treatment of congestive heart failure Discharge Plan: Home Plan to discharge in: Greater than 2 days - Advance Directives Does patient have a Living Will: No Does patient have a Durable POA for Healthcare: No - Code Status/Comfort Care Code Status Assessed: Yes Code Status: Full Code Critical Care: No Time Spent Managing PTS Care (In Minutes): 45
[2022-11-22 04:42] LABS: Absolute Lymphocytes (CBC) 0.7 K/uL (0.7-4.9); Hematocrit 32.9 % (36.0-45.0); Lymphocytes % 25.6 % (15.3-44.8); MCV 95.8 fL (80-100); MPV 7.6 fL (7.6-11.3); RBC Red Blood Cell Count 3.43 M/uL (3.86-4.86)
[2022-11-22 04:53] LABS: Protime INR 1.07
[2022-11-22 04:56] VITALS: O2SAT 94
[2022-11-22 05:03] LABS: Albumin 2.3 g/dL (3.4-5.0); Bilirubin Total 1.3 mg/dL (0.2-1.0); Potassium 3.4 mEq/L (3.5-5.1); Protein, Total 5.8 g/dL (6.4-8.2)
[2022-11-22] MEDS: MORPHINE 2 MG/ML SYR IV PRN ×3 (05:29→19:44)
[2022-11-22] MEDS: MIDODRINE HCL 5 MG TABLET PO SCH ×3 (09:02→20:29)
[2022-11-22] MEDS: ALBUMIN HUMAN 25% 12.5 GM, FUROSEMIDE 100 MG in NA CHLORIDE 0.9% 40 ML IV SCH ×2 (09:02→14:28)
--- NOTE | 2022-11-22 14:10 | ECHO ---
HEIGHT: 5 ft 5 in WEIGHT: 159 lb 15.831 oz DATE OF STUDY: 11/22/[address]: Raoul Hopper MD 2-DIMENSIONAL: YES M.MODE: YES DOPPLER: YES COLOR FLOW: YES TDS: PORTABLE: YES DEFINITY: BUBBLE STUDY: DIAGNOSIS: CONGESTIVE HEART FAILURE CARDIAC HISTORY: CATHERIZATION: SURGERY: PROSTHETIC VALVE: PACEMAKER: MEASUREMENTS (cm) DIASTOLIC (NORMALS) SYSTOLIC (NORMALS) IVSd 0.8 (0.6-1.2) LA Diam 3.1 (1.9-4.0) LVEF 72% LVIDd 4.4 (3.5-5.7) LVIDs 2.6 (2.0-3.5) %FS 41% LVPWd 1.1 (0.6-1.2) Ao Diam 2.5 (2.0-3.7) 2 DIMENSIONAL ASSESSMENT: RIGHT ATRIUM: NORMAL LEFT ATRIUM: NORMAL RIGHT VENTRICLE: NORMAL LEFT VENTRICLE: NORMAL TRICUSPID VALVE: MODERATE TRICUSPID REGURGITATION MITRAL VALVE: TRACE MITRAL REGURGITATION PULMONIC VALVE: NORMAL AORTIC VALVE: HEAVILY CALCIFIED, NO AORTIC STENOSIS PERICARDIAL EFFUSION: NONE AORTIC ROOT: NORMAL LEFT VENTRICULAR WALL MOTION: NORMAL DOPPLER/COLOR FLOW: SEE BELOW COMMENTS: 1. NORMAL LEFT VENTRICULAR EJECTION FRACTION 60-65% WITH NORMAL WALL MOTION 2. MODERATE TRICUSPID REGURGITATION 3. MILD MITRAL REGURGITATION 4. CALCIFIED AORTIC VALVE, NO AORTIC STENOSIS 5. MODERATE TRICUSPID REGURGITATION 6. MILD AORTIC INSUFFICIENCY 7. DIASTOLIC DYSFUNCTION 8. MODERATE PULMONARY HYPERTENSION WITH RIGHT VENTRICULAR SYSTOLIC PRESSURE OF 55-60 mmHg TECHNOLOGIST: MICHAEL ARECHIGA
[2022-11-22 17:53] VITALS: BMI 25.2
[2022-11-23] MEDS: CEFTRIAXONE 1,000 MG in NA CHLORIDE 0.9% 50 ML IVPB SCH ×2 (03:45→03:54)
[2022-11-23] MEDS: MORPHINE 2 MG/ML SYR IV PRN ×2 (04:23)
[2022-11-23] MEDS: MIDODRINE HCL 5 MG TABLET PO SCH ×3 (07:59→19:47)
[2022-11-23] MEDS: ACETAMINOPHEN 325 MG TABLET PO PRN ×2 (11:03→19:47)
[2022-11-23] MEDS: HYDROCODONE/APAP 10/325 TAB PO PRN (14:52)
[2022-11-23] MEDS: levoFLOXacin 750 MG TAB PO SCH (14:52)
--- NOTE | 2022-11-24 00:27 | P.PN ---
Date of Service: 11/23/22 Subjective Patient is doing better today. Patient ambulated without a lot of difficulty. Patient is needing her walker to get around. I think the biggest obstacle is she does not have a guaranteed place where she is staying. There is a daughter who lives out of town. There is a friend who she states is willing to let her stay with her. As long as we have a safe discharge then patient should be stable for discharge home in the morning. Physical Examination - Vital Signs Reviewed - Physical Exam General: Alert, In no apparent distress, Oriented x3 Respiratory: Clear to auscultation bilaterally, Crackles/rales Cardiovascular: Regular rate/rhythm, Normal S1 S2, Systolic murmur Gastrointestinal: Normal bowel sounds, Soft and benign, Non-distended, No tenderness Musculoskeletal: No clubbing, No swelling, No tenderness Neurological: No focal deficits; generalized weakness Assessment & Plan - Problems (Diagnosis) (1) Anasarca; acute CHF exacerbation Current Visit: No Status: Acute (2) Liver cirrhosis Current Visit: No Status: Acute (3) Cocaine abuse Onset Date: 11/18/17 Current Visit: No Status: Chronic (4) Hepatitis C Current Visit: No Status: Chronic (5) History of CVA (cerebrovascular accident) Current Visit: No Status: Chronic (6) Hx of myocardial infarction Current Visit: No Status: Chronic (7) Hypertension Current Visit: No Status: Chronic (8) Hypothyroidism Onset Date: 11/18/17 Current Visit: No Status: Chronic (9) Altered mental status Current Visit: No Status: Resolved - Plan Continue with plan of care as mentioned below: 1. Echocardiogram has been reviewed.Patient with normal ejection fraction. Patient with diastolic heart failure. Patient with severe pulmonary hypertension. 2. Continue strict blood pressure control 3. Continue with Beta abdulaziz 4. Cardiology consultation appreciated 5. Aggressive diuresis 6. Strict I's and O's 7. Repeat CXR 8. Daily weights 9. 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 Education regarding diet and treatment of congestive heart failure - Advance Directives Does patient have a Living Will: No Does patient have a Durable POA for Healthcare: No
--- NOTE | 2022-11-24 00:29 | P.PN ---
Date of Service: 11/22/22 Subjective Patient continues to do well with no new complaints. Physical Examination - Vital Signs Reviewed - Physical Exam General: Alert, In no apparent distress, Oriented x3 Respiratory: Clear to auscultation bilaterally, Crackles/rales Cardiovascular: Regular rate/rhythm, Normal S1 S2, Systolic murmur Gastrointestinal: Normal bowel sounds, Soft and benign, Non-distended, No tenderness Musculoskeletal: No clubbing, No swelling, No tenderness Neurological: No focal deficits; generalized weakness Assessment & Plan - Problems (Diagnosis) (1) Anasarca; acute CHF exacerbation Current Visit: No Status: Acute (2) Liver cirrhosis Current Visit: No Status: Acute (3) Cocaine abuse Onset Date: 11/18/17 Current Visit: No Status: Chronic (4) Hepatitis C Current Visit: No Status: Chronic (5) History of CVA (cerebrovascular accident) Current Visit: No Status: Chronic (6) Hx of myocardial infarction Current Visit: No Status: Chronic (7) Hypertension Current Visit: No Status: Chronic (8) Hypothyroidism Onset Date: 11/18/17 Current Visit: No Status: Chronic (9) Altered mental status Current Visit: No Status: Resolved - Plan Continue with plan of care as mentioned below: 1. Echocardiogram has been reviewed. Patient with normal ejection fraction. Patient with diastolic heart failure. Patient with severe pulmonary hypertension. 2. Continue strict blood pressure control 3. Continue with Beta abdulaziz 4. Cardiology consultation appreciated 5. Aggressive diuresis 6. Strict I's and O's 7. Repeat CXR 8. OOB and ambulate 9. Director Records Management re: drug abuse cessation 10. Education regarding diet and treatment of congestive heart failure - Advance Directives Does patient have a Living Will: No Does patient have a Durable POA for Healthcare: No
[2022-11-24] MEDS ORDERED: TRAZODONE 50 MG TABLET PO PRN (00:36)
[2022-11-24] MEDS: HYDROCODONE/APAP 10/325 TAB PO PRN ×2 (05:46→12:17)
[2022-11-24 06:19] LABS: Absolute Lymphocytes (CBC) 0.6 K/uL (0.7-4.9); Lymphocytes % 16.8 % (15.3-44.8); MCV 96.3 fL (80-100); MPV 7.9 fL (7.6-11.3); RBC Red Blood Cell Count 3.74 M/uL (3.86-4.86)
[2022-11-24] MEDS ORDERED: LEVOTHYROXINE SOD 0.125 MG TAB PO SCH (06:30)
[2022-11-24 06:38] LABS: Albumin 2.6 g/dL (3.4-5.0); Bilirubin Total 1.2 mg/dL (0.2-1.0); Potassium 3.2 mEq/L (3.5-5.1); Protein, Total 6.7 g/dL (6.4-8.2)
[2022-11-24] MEDS: MIDODRINE HCL 5 MG TABLET PO SCH ×2 (07:47→14:24)
[2022-11-24] MEDS: GABAPENTIN 300 MG CAP PO SCH ×2 (07:47→14:24)
[2022-11-24] MEDS: levoFLOXacin 750 MG TAB PO SCH (07:47)
[2022-11-24] MEDS ORDERED: levETIRAcetam 500 MG TAB PO SCH (09:00)
[2022-11-24] MEDS ORDERED: AMLODIPINE 10 MG TAB PO SCH (09:00)
--- NOTE | 2022-11-24 10:01 | RAD REPORT ---
EXAM DESCRIPTION: [facility] Single View11/24/2022 6:54 am CLINICAL HISTORY: pneumonia COMPARISON: Chest Single View dated 11/21/2022; Chest Single View dated 11/13/2022; Chest Single View d ated 11/01/2022; Chest Single View dated 10/27/2022 TECHNIQUE: Portable AP view of the chest. FINDINGS: The lungs are clear. No pneumothorax or effusion. The cardiomediastinal contours are unre markable. IMPRESSION: No acute cardiopulmonary process.
[2022-11-24 11:52] VITALS: BP 102/70; TEMP 97.9
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
[2022-11-24] MEDS ORDERED: ATORVASTATIN 20 MG TAB PO SCH (21:00)
[2022-11-24] MEDS ORDERED: AMITRIPTYLINE 50 MG TAB PO SCH (21:00)
--- NOTE | 2022-11-25 17:59 | EKG ---
Test Date: 2022-11-21 Test Time: 12:37:38 Online Marketing Strategist: BERTHA MEASUREMENT RESULTS: Intervals: Rate: 95 FL: 168 QRSD: 82 QT: 378 QTc: 475 [place]: P: 70 FL: 168 QRS: 4 T: 78 INTERPRETIVE STATEMENTS: Normal sinus rhythm Anteroseptal infarct, age undetermined Abnormal ECG Compared to ECG 11/16/2022 22:56:10 Myocardial infarct finding now present Prolonged QT interval no longer present Electronically Signed On 11-25-22 17:53:05 CDT by Andrew Upton
== END 2022-11-24 14:33 | disposition home or self-care (01) | DRG 291 ==
LOC: ER 12:03 → ERHOLD 16:26 → 2ND 17:34
PROVIDERS: ADMIT Hospitalist; ATTEND Hospitalist
DX: I11.0 Hypertensive heart disease with heart failure (principal); I50.33 Acute on chronic diastolic (congestive) heart failure; J18.9 Pneumonia, unspecified organism; I69.354 Hemiplegia and hemiparesis following cerebral infarction affecting left non-dominant side; J44.0 Chronic obstructive pulmonary disease with (acute) lower respiratory infection; N39.0 Urinary tract infection, site not specified; F31.9 Bipolar disorder, unspecified; E03.9 Hypothyroidism, unspecified; M19.90 Unspecified osteoarthritis, unspecified site; F14.10 Cocaine abuse, uncomplicated; I27.20 Pulmonary hypertension, unspecified; K74.60 Unspecified cirrhosis of liver; M79.7 Fibromyalgia; B18.2 Chronic viral hepatitis C; F17.210 Nicotine dependence, cigarettes, uncomplicated; I25.2 Old myocardial infarction; Z88.0 Allergy status to penicillin; Z79.52 Long term (current) use of systemic steroids; Z98.51 Tubal ligation status; Z71.51 Drug abuse counseling and surveillance of drug abuser; Z59.00 Homelessness unspecified; Z79.899 Other long term (current) drug therapy; Z79.890 Hormone replacement therapy; W18.30XA Fall on same level, unspecified, initial encounter; Y93.01 Activity, walking, marching and hiking; Y92.89 Other specified places as the place of occurrence of the external cause; Y99.9 Unspecified external cause status
CPT/HCPCS: 36415; 51702; 70450; 71045; 72125; 72170; 80053; 81001; 82550; 82947; 83735; 83880; 84484; 85025; 85610; 85730; 87077; 87086; 87088; 87186; 93005; 93306; 93970; 96361; 96365; 99285; J0696; J2270; J7030; J7040; J7050; P9047

== ENCOUNTER 2022-11-25 10:22 | Emergency (ER) | payer OTHER ==
--- OUTSIDE RECORDS SUMMARY | 2022-11-25 10:35 | XMS REPORT | Continuity of Care Document ---
:1960 Author Organization [facility] t Address [address] [place] [address] Care Team Providers Name Role Phone AL AGUILAR Primary Care Physician Unavailable TAVO VIZCAINO Attending Clinician Unavailable Doctor Unassigned, [place] Attending Clinician Unavailable Al Aguilar MD Attending Clinician Payers Payer Name Policy Type Policy Number Effective Date [facility]piration Date [facility] [id number] 2016 00:00:00 PLUS Problems Condition Condition Condition Status Onset Resolution Last Treating Co mments Source Name Details Category Date Date Treatment Clinician Date Essential Essential Disease Active Uni vers hypertensi hypertensi 7-26 it y of on on 00:00: [address] Obesity Obesity Disease Active Univers (BMI (BMI 5-25 ity of 30-39.9) 30-39.9) 00:00: [address] [place] [address] Osteomyeli Osteomyeli Disease Active U [place] tis tis 5-24 ity of 00:00: [address] Positive Positive Disease Active 2015-06 Unive rs serology serology 1-15 ity of for for 00:00: [place] syphilis syphilis 00 Medica Branch 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 1-15 it y of ve ve 00:00: [address] Trichomoni Trichomoni Disease Active 2015-06 U [place] asis asis 0-26 ity of 00:00: [address] Tobacco Tobacco Disease Active 2015-06 Univers [...] (hyperlipi (hyperlipi it y of demia) demia) [facility] Hepatic Hepatic Disease Active Univers cirrhosis cirrhosis ity of [facility] Acquired Acquired Disease Active Unive rs hypothyroi hypothyroi it y of dism dism [facility] Allergies, Adverse Reactions, Alerts Allergy Allergy Status Severity Reaction(s) Onset Inactive Treating Comm ents Source Name Type Date Date Clinician Penicill Propensi Active Rash 2006- Univer s ins ty to 02-04 ity of adverse 00:00: [place] reaction 00 [facility] PENICILL Drug Active Rash Univers INS Class 8- ity of 00:00: [place] 00 [facility] Penicill Propensi Active Rash 2006- Univer s ins ty to 02-04 ity of adverse 00:00: [place] reaction 00 [facility] Social History Social Habit Start Date Stop Date Quantity Comments Source History of tobacco Cigarette Smoker University of use [facility] Alcohol intake 2019-05-22 2019-05-22 .86 /d University of 00:00:00 00:00:00 [facility] Tobacco use and 2015-08-01 2015-08-01 Smokeless Universit y of exposure 00:00:00 00:00:00 tobacco non-user [facility] Cig[facility] smoked 2015-08-01 2015-08-01 Univers ity of current (pack per 00:00:00 00:00:00 [facility] ) - Reported Branch Cigarette 2015-08-01 2015-08-01 University of pack-years 00:00:00 00:00:00 [facility] Tobacco Comment 2014-12-26 2014-12-26 smokes 6 cig/day Uni versity of 00:00:00 00:00:00 [facility] Sex [birth year] At [birth year] Universit y of 00:00:00 00:00:00 [facility] Smoking Status Start Date Stop Date Source Smokes tobacco daily 2015-08-01 00:00:00 Univers ity of [facility] Medications Ordered Filled Start Stop Current Ordering Indication Dosage Frequency Signature Comments Components Source Medication Medication Date Date Medication? Clinician (SIG) Name Name gabapentin 2018-06 Yes [id number] 400mg Take 1 Univers (NEURONTIN) 2-14 capsule by it y of 400 mg 00:00: mouth 3 [place] capsule 00 (three) Medical times [place] daily. cyclobenzap 2018-06 Yes [id number] 10mg Take 1 Univers rine 10 mg 2-14 tablet by ity of tablet 00:00: mouth 3 [place] 00 (three) Medical times [place] daily. amLODIPine Yes [id number] 5mg Take 1 U nivers 5 mg tablet 7-26 tablet by ity of 00:00: mouth 00 daily. Medical Branch cyclobenzap Yes [id number] 10mg Take 1 Univers rine 10 mg 7-26 tablet by ity of tablet 00:00: mouth (three) Medical times Branch daily as needed for Muscle Spasms. gabapentin 2018- Yes [id number] 400mg Take 1 Univers 400 mg 7-26 capsule by ity of capsule 00:00: mouth (three) Medical times Branch daily. amLODIPine Yes [id number] 5mg Take 1 U nivers 5 mg tablet 7-26 tablet by ity of 00:00: mouth 00 daily. Medical Branch cyclobenzap Yes [id number] 10mg Take 1 Univers rine 10 mg 7-26 tablet by ity of tablet 00:00: mouth (three) Medical times Branch daily as needed for Muscle Spasms. gabapentin 2018- Yes [id number] 400mg Take 1 Univers 400 mg 7-26 capsule by ity of capsule 00:00: mouth (three) Medical times Branch daily. amLODIPine Yes [id number] 5mg Take 1 U nivers 5 mg tablet 7-26 tablet by ity of 00:00: mouth 00 daily. Medical Branch amLODIPine 2018-0 Yes [id number] 5mg Take 1 U nivers 5 mg tablet 7-26 tablet by ity of 00:00: mouth 00 daily. Medical Branch cyclobenzap Yes [id number] 10mg Take 1 Univers rine 10 mg 7-26 tablet by ity of tablet 00:00: mouth (three) Medical times Branch daily as needed for Muscle Spasms. gabapentin 2018- Yes [id number] 400mg Take 1 Univers 400 mg 7-26 [...] Medical TIMES Branch DAILY. Walker 2017-0 Yes [id number] Use as Unive rs (ULTRA-LIGH 6-27 directed ity of T ROLLATOR) 00:00: [place] [address] Medical Branch Walker 2017-0 Yes [id number] Use as Unive rs (ULTRA-LIGH 6-27 directed ity of T ROLLATOR) 00:00: [place] [address] Medical Branch Walker 2017-0 Yes [id number] Use as Unive rs (ULTRA-LIGH 6-27 directed ity of T ROLLATOR) 00:00: [place] [address] Medical Branch Walker 2017-0 Yes [id number] Use as Unive rs (ULTRA-LIGH 6-27 directed ity of T ROLLATOR) 00:00: [place] [address] Medical Branch Craig 2017-0 Yes [id number] Use as Unive rs (ULTRA-LIGH 6-27 directed ity of T ROLLATOR) 00:00: [place] [address] Medical Branch metroNIDAZO 2017-0 Yes 500mg Take [...] by mouth ity of tablet 20:00: daily. [address] aspirin 81 2017-0 Yes 81mg Take 81 mg U nivers mg chewable 6-09 by mouth ity of tablet 20:00: daily. [address] aspirin 81 2017-0 Yes 81mg Take 81 mg U nivers mg chewable 6-09 by mouth ity of tablet 20:00: daily. [address] aspirin 81 2017-0 Yes 81mg Take 81 mg U nivers mg chewable 6-09 by mouth ity of tablet 20:00: daily. [address] aspirin 81 2017-0 Yes 81mg Take 81 mg U nivers mg chewable 6-09 by mouth ity of tablet 15:00: daily. [address] KCL 10 mEq 2017-0 Yes [id number] 10meq Take 1 Univers tablet 6-09 tablet by ity of 00:00: mouth [place] 00 daily. Medical Branch KCL 10 mEq Yes [id number] 10meq Take 1 Univers tablet 6-09 tablet by ity of 00:00: mouth [place] 00 daily. Medical Branch KCL 10 mEq Yes [id number] 10meq Take 1 Univers tablet 6-09 tablet by ity of 00:00: mouth [place] 00 daily. Medical Branch KCL 10 mEq Yes [id number] 10meq Take 1 Univers tablet 6-09 tablet by ity of 00:00: mouth [place] 00 daily. Medical Branch KCL 10 mEq Yes [id number] 10meq Take 1 Univers tablet 6-09 tablet [...] times Medical daily. Branch acetaminoph 2015-06 Yes [id number] 1{tbl} Take 1 Univers en-codeine 1-17 07 tablet by ity of (TYLENOL 00:00: mouth [place] #3) 300-30 00 every 6 Medica l mg tablet (six) Branch hours as needed for Pain (scale 7-10) or Pain unrelieved by non-narcot ic analgesics . acetaminoph 2015-06 2019- No [id number] 1{tbl} Take 1 Univers en-codeine -17 01-01 [...] Immunizations Ordered Filled Immunization Date Status Comments [facility] e Immunization Name Name TDAP (ADACEL) 2016-04-25 Completed University of VACCINE 00:00:00 [facility] TDAP (ADACEL) 2016-04-25 Completed University of VACCINE 00:00:00 [facility] TDAP (ADACEL) 2016-04-25 Completed University of VACCINE 00:00:00 [facility] TDAP (ADACEL) 2016-04-25 Completed University of VACCINE 00:00:00 [facility] TDAP (ADACEL) 2016-04-25 Completed University of VACCINE 00:00:00 [facility] Influenza Virus 2016-04-01 Completed [...] of Vaccine Quad IM 3+ 00:00:00 [facility] Pneumococcal 2015-08-24 Completed University o f Polysaccharide, 00:00:00 [place] Med ical PPSV23 (PNEUMOVAX) Branch Influenza Virus 2015-08-24 Completed Universit y of Vaccine Quad IM 3+ 00:00:00 [facility] Pneumococcal 2015-08-24 Completed University o f Polysaccharide, 00:00:00 [place] Med ical PPSV23 (PNEUMOVAX) Branch Influenza Virus 2015-08-24 Completed Universit y of Vaccine Quad IM 3+ 00:00:00 [facility] Pneumococcal 2015-08-24 Completed University o f Polysaccharide, 00:00:00 [place] Med ical PPSV23 (PNEUMOVAX) Branch Influenza Virus 2015-08-24 Completed Universit y of Vaccine Quad IM 3+ 00:00:00 [facility] Pneumococcal 2015-08-24 Completed University o f Polysaccharide, 00:00:00 [place] Med ical PPSV23 (PNEUMOVAX) Branch Influenza Virus 2015-08-24 Completed Universit y of Vaccine Quad IM 3+ 00:00:00 [facility] HEPATITIS A 2014-10-06 Completed University of 00:00:00 [facility] Vital Signs Vital Name Observation Time Observation Value Comments Source Systolic blood 2019-01-01 13:32:00 142 mm[Hg] Univer sity of pressure [facility] Diastolic blood 2019-01-01 13:32:00 100 mm[Hg] Unive rsity of pressure [facility] Heart rate 2019-01-01 13:32:00 86 /min [facility] Body temperature 2019-01-01 13:32:00 [facility].44 [facility] height 2019-01-01 13:32:00 165.1 cm [facility] Body weight 2019-01-01 13:32:00 81.647 kg [facility] BMI 2019-01-01 13:32:00 29.95 kg/m2 [facility] Procedures Procedure Date / Time Performing Clinician Source Performed REFERRAL- 2022-04-07 05:01:00 Doctor Unassigned, No [facility] REQUEST/RESPONSE Name [facility] AUTHORIZATION FOR 2019-02-18 05:01:00 Doctor Unassigned, No [facility] RELEASE OF PHI Name [facility] COMP. METABOLIC PANEL 2019-01-01 13:52:00 Al Aguilar Un [facility] ([id number]) Medical [place] LIPID PANEL 2019-01-01 13:52:00 Al Aguilar [facility] ([id number])(TOTAL [facility] Branch CHOLESTEROL, TRIGLYCERIDES, HDL) CBC WITH DIFFERENTIAL 2019-01-01 13:52:00 Al Aguilar Un [facility] ASSIGNMENT OF BENEFITS 2019-01-01 13:15:46 Doctor Unassigned, No [facility] Name [facility] Encounters Start End Encounter Admission Attending Care Care Encounter Source Date/Time Date/Time Type Type Clinicians Facility Department ID 2022-10-02 2022-10-02 Outpatient SFA SFA [id number] Raemz 09:05:54 09:05:54 [id number] [facility] 2022-09-05 2022-09-05 Outpatient Shonda VIZCAINO [facility] [id number] Univers 14:00:00 14:00:00 [facility] 2022-07-24 2022-07-24 Outpatient Shonda VIZCAINO [facility] [id number] Univers 13:15:00 13:15:00 [facility] 2022-06-26 2022-06-26 Outpatient SFA SFA [id number] Ramez 10:10:22 10:10:22 [id number] [facility] 2022-04-07 2022-04-07 Orders Doctor FLANNERY [id number] [id number] Univers 00:00:00 00:00:00 Only Unassigned, TAYLOR [id number] ity of [place] [facility] 4.2.7.2.686 Juno as [id number] [address] 2022-03-26 2022-03-26 Outpatient SFA SFA [id number] Ramez 10:47:27 10:47:27 [id number] [place] 2019-02-18 2019-02-18 Orders Doctor FLANNERY [id number] [id number] Univers 00:00:00 00:00:00 Only Unassigned, TAYLOR [id number] ity of [place] [facility] [id number] Juno as [phone] [address] 2019-01-24 2019-01-24 Refill Goran [facility] 1.2.840.114 [id number] Univers 00:00:00 00:00:00 [facility] [id number] ity of [place] [id number] Juno as Professio [phone] Mt dicmn nal [address] [place] [address] 2019-01-01 2019-01-01 Office Goran [facility] [id number] [facility] 08:17:32 09:01:49 Visit Al [facility] [id number] ity of [place] [id number] Juno as Professio [phone] Mt dicmn nal [address] [place] [address] 2019-01-01 2019-01-01 Orders Doctor PRUDENCIO [id number] [id number] Univers 00:00:00 00:00:00 Only Unassigned, TAYLOR [id number] ity of [place] [facility] [id number] Juno as [id number] [address] Results Test Description Test Time Test Comments Results Result Comments Source TSH, THIRD GENERATION 2022-01-02 04:53:46 Test Item Value Reference Range Interpretation Comme nts TSH, THIRD GENERATION (test 89.300 UIU/ML 0.400-4.100 H UNLESS OTHERWISE INDICATED, code = 2821) ALL TESTING PER FORMED ATCLINICAL PATH [facility], I ME. [address] [place] [address] 5012 CARD CUTTER: Ethan HARTMAN [id number] [place] [id number] CBC W/AUTO DIFF WITH [id number] 04:43:48 Test Item Value Reference Range Interpretation [...] RBCS 0.00 K/UL 0.00-0.11 (test code = 13425) LIPID [id number] 03:18:10 Test Item Value Reference Range Interpretation [...] MOREINFORMATION , SEE CLIENT ANNOUNCE MENT AT [email or web address] [email or web address] RATIO LDL/HDL 1.78 RATIO <3.22 (test code = 2238) COMPREHENSIVE METABOLIC [id number] 03:18:10 Test Item Value Reference Range Interpretation Comments GLUCOSE (test code = 98 MG/DL 70-99 2216) BUN (test code = 12 MG/DL 8-23 2207) CREATININE (test 0.81 MG/DL 0.60-1.30 code = 221) eGFR (2020 CKD-EPI) 83 ML/MIN/1.73 >60 (test code = 65988) CALC BUN/CREAT (test 15 RATIO 6-28 code = 2235) SODIUM (test code = 141 MEQ/L 033-616 3961) POTASSIUM (test code 4.3 MEQ/L 3.5-5.4 = [...] U/L 5-40 H 2219) COMP. METABOLIC PANEL (11924)2019-01-01 16:13:00 Test Item Value Reference Range Interpretation Comments NA (test code = 142 mmol/L 135-145 7158880076) K (test code = 5.6 mmol/L 3.5-5 H 7593048493) CL (test code = 106 mmol/L 98-108 2291354332) CO2 TOTAL (test code = 28 mmol/L 23-31 4583594182) AGAP (test code = 2-16 2537963156) BUN (test code = 6 mg/dL 7-23 L 5873171778) GLUCOSE (test code = 105 mg/dL 70-110 4366073466) CREATININE (test code = 0.79 mg/dL 0.5-1.04 0261914814) TOTAL BILI (test code = 1.3 mg/dL 0.1-1.1 H 5236086816) CALCIUM (test code = 9.1 mg/dL 8.6-10.6 5906488281) T PROTEIN (test code = 8.7 g/dL 6.3-8.2 H 9506481562) ALBUMIN (test code = 4.0 g/dL 3.5-5 0231782058) ALK PHOS (test code = 72 U/L 34-122 1337581401) ALT(SGPT) (test code = 58 U/L 9-51 H 2442837847) AST(SGOT) (test code = 87 U/L 13-40 H 6905064498) eGFR Calculation mL/min/1.73m2 (Non-) (test code = 6380569338) eGFR Calculation mL/min/1.73m2 () (test code = 7015338418) ROMY (test code = ROMY) Association of [...] tests). Lab Interpretation Abnormal (test code = 15999-8) [facility]TOTAL CHOLESTEROL, TRIGLYCERIDES, HDL)2019-01-01 16:13:00 Test Item Value Reference Range Interpretation Comments CHOL (test code = 160 mg/dL 120-200 4450941843) HDL (test code = 61 mg/dL >50 1544031893) HDLC RATIO (test code = See_Comment [Au tomated message] 3458135028) The system [employer] generated this result transmit amelie reference range : <=4.5. The refe rence range was not u sed to interpret th is result as normal/abnormal . TRIG (test code = 73 mg/dL 30-170 3725869287) LDL CHOL (test code = 84 mg/dL See_Comment [Auto mated message] 21566-2) The system [employer] generated this result transmit amelie reference range : <=160. The refe rence range was not u sed to interpret th is result as normal/abnormal . VLDL (test code = 15 mg/dL 5-60 2742169291) Lab Interpretation (test Normal code = 39370-3) [facility]"
--- NOTE | 2022-11-25 11:44 | RAD REPORT ---
EXAM DESCRIPTION: CT - Head C Spine Cap Steve Sánchez - 11/25/2022 11:27 am CLINICAL HISTORY: Head and neck injury with chest and abdominal pain status post fall TECHNIQUE: Computed axial tomography of head, neck, chest, abdomen and pelvis obtained. IV and oral contrast not requested. Coronal and sagittal reconstruction performed. All CT scans are performed using dose optimization technique as appropriate and may include automated exposure control or mA/KV adjustment according to patient size. COMPARISON: November 2022 FINDINGS: An intracranial bleed is not seen. The ventricles are normal in caliber. An extra-axial fluid collection is not noted. . Mild to moderat e low-density areas within periventricular, deep and subcortical white matter probably ischemic riggs es secondary to small vessel disease Fluid within the sinuses/mastoids is not seen. A cervical fracture is not seen. No dislocation is noted. Postsurgical changes involve the cervical s pine. Hardware is intact. The evaluation of mediastinum, zander, vessels, solid organs and bowel are limited secondary to the lac k of contrast administration. A mediastinal hematoma is not noted. A pleural effusion is not seen. A lung contusion is not present. Old left rib fracture The liver,spleen, pancreas, adrenals,kidneys and bladder do not demonstrate an acute traumatic injury Moderate anterior subluxation L5 on S1 with obliteration of disc. Spondylolysis L5. All of these find ings are chronic Morales catheter within a collapsed bladder IMPRESSION: No acute intracranial abnormality is seen. A cervical fracture is not visualized. If the patient continues have symptoms to suggest intracrania l/spinal cord pathology MRI be recommended No acute traumatic abnormality involving the chest/abdomen/pelvis.
[2022-11-25] MEDS ORDERED: ONDANSETRON 4 MG/2 ML VIAL ONE (11:52)
[2022-11-25] MEDS ORDERED: CEFAZOLIN SODIUM 1 GM/VIAL ONE (11:52)
[2022-11-25] MEDS ORDERED: VANCOMYCIN 1 GM/VIAL ONE (11:52)
[2022-11-25] MEDS ORDERED: FENTANYL CITR 100 MCG/2 ML ONE ×3 (11:52→18:32)
[2022-11-25] MEDS ORDERED: NA CHLORIDE 0.9% 250 ML ONE (11:52)
[2022-11-25] MEDS ORDERED: NA CHLORIDE 0.9% 100 ML ONE (11:53)
[2022-11-25] MEDS ORDERED: FAMOTIDINE 20 MG/2 ML VIAL IV ONE (11:53)
[2022-11-25] MEDS ORDERED: NA CHLORIDE 0.9% 1,000 ML ONE ×2 (11:53→13:51)
[2022-11-25] MEDS ORDERED: IPRATROPIUM BROM 0.5MG/2.5ML ONE (11:54)
[2022-11-25] MEDS ORDERED: ALBUTEROL 2.5 MG/3 ML NEB SOL ONE (11:54)
[2022-11-25] MEDS ORDERED: MULTIVITAMINS INJ 10 ML, FOLIC ACID 1 MG, THIAMINE HCL 100 MG in NA CHLORIDE 0.9% 1,000 ML IV ONE (12:00)
--- NOTE | 2022-11-25 12:16 | RAD REPORT ---
EXAM DESCRIPTION: RAD - Femur Right - 11/25/2022 12:11 pm CLINICAL HISTORY: Leg pain FINDINGS: No fracture is seen. Soft tissue swelling
--- NOTE | 2022-11-25 12:18 | RAD REPORT ---
EXAM DESCRIPTION: Niharika Single View11/25/2022 12:11 pm CLINICAL HISTORY: Chest pain COMPARISON: none FINDINGS: The lungs appear clear of acute infiltrate. The heart is borderline enlarged IMPRESSION: No acute abnormalities displayed
--- NOTE | 2022-11-25 12:18 | RAD REPORT ---
EXAM DESCRIPTION: RAD - Pelvis - 11/25/2022 12:14 pm CLINICAL HISTORY: Pelvic pain status post injury FINDINGS: No fracture or dislocation is seen. Osteoporosis
--- NOTE | 2022-11-25 12:18 | RAD REPORT ---
EXAM DESCRIPTION: RAD - Tib Fib Right - 11/25/2022 12:12 pm CLINICAL HISTORY: Right leg pain FINDINGS: Old fibular fractures No acute fracture seen. Bones are osteoporotic
[2022-11-25 12:30] LABS: Absolute Lymphocytes (CBC) 0.7 K/uL (0.7-4.9); Hematocrit 39.9 % (36.0-45.0); Lymphocytes % 17.2 % (15.3-44.8); MPV 8.1 fL (7.6-11.3); RBC Red Blood Cell Count 4.16 M/uL (3.86-4.86)
[2022-11-25 12:48] LABS: Specific Gravity 1.017 (1.005-1.030); Urine Bacteria <20 /HPF (<20); Urine Bilirubin NEGATIVE (Negative); Urine Blood Negative (Negative); Urine Clarity Turbid (Clear); Urine Color Yellow (Yellow); Urine Glucose NEGATIVE (Negative); Urine Protein NEGATIVE (Negative); Urine RBC <5 /HPF (None Seen); Urine Urobilinogen 1+ (Normal); Urine pH 5.5 (5.0-7.0)
[2022-11-25 13:30] LABS: Protime INR 4.22
[2022-11-25] MEDS ORDERED: METHYLPREDNISOLONE 125 MG INJ ONE (13:51)
[2022-11-25] MEDS ORDERED: THIAMINE 200 MG/2 ML INJ ONE (13:51)
--- NOTE | 2022-11-25 14:51 | EDPHYS ---
Physician Documentation [facility] Name: Maisha Leo Age: 62 yrs Sex: Female : 1960 Arrival Date: 11/25/2022 Time: 10:22 Bed 6 Private MD: ED Physician Mejia Juares HPI: 11/25 15:26 This 62 yrs old Female presents to ER via EMS with complaints of Fall Injury. godfrey 15:26 Details of fall: The patient fell from an upright position, while walking. Onset: The godfrey symptoms/episode began/occurred today, yesterday. Associated injuries: The patient sustained right leg, decreased range of motion. Severity of symptoms: At their worst the symptoms were moderate. The patient has experienced similar episodes in the past, multiple times. Historical: - Allergies: 10:36 PENICILLINS; jl7 - Home Meds: 13:19 amlodipine 10 mg tablet daily [Active]; gabapentin 600 mg Oral tablet 1 tab 3 times per iw day [Active]; lamotrigine 25 mg (84) -100 mg (14) Oral tablet [Active]; Keppra 500 mg Oral tablet 2 times per day [Active]; amitriptyline 50 mg Oral tablet every day at bedtime [Active]; levothyroxine 100 mcg tablet daily [Active]; atorvastatin 40 mg oral tablet daily [Active]; alprazolam 0.5 mg Oral tablet 3 times per day [Active]; trazodone 100 mg Oral tablet [Active]; midodrine 5 mg oral tablet 3 times per day [Active]; - PMHx: 10:36 ADD/ADHD; Bipolar disorder; Cerebrovascular accident; Cirrhosis; COPD; CVA; Left sided jl7 weakness; Fibromyalgia; Hypertension; Hypothyroidism; Myocardial infarction; Seizures; - PSHx: 10:36 right big toe; jl7 - Immunization history:: Adult Immunizations unknown. - Social history:: Smoking status: Patient reports the use of cigarette tobacco products. ROS: 15:27 Constitutional: Negative for fever, chills, and weight loss, Eyes: Negative for injury, godfrey pain, redness, and discharge, ENT: Negative for injury, pain, and discharge, Neck: Negative for injury, pain, and swelling, Cardiovascular: Negative for chest pain, palpitations, and edema, Back: Negative for injury and pain, : Negative for injury, bleeding, discharge, and swelling, Skin: Negative for injury, rash, and discoloration, Neuro: Negative for headache, weakness, numbness, tingling, and seizure, Psych: Negative for depression, anxiety, suicide ideation, homicidal ideation, and hallucinations, Allergy/Immunology: Negative for hives, rash, and allergies, Endocrine: Negative for neck swelling, polydipsia, polyuria, polyphagia, and marked weight changes, Hematologic/Lymphatic: Negative for swollen nodes, abnormal bleeding, and unusual bruising. 15:27 Respiratory: Positive for cough, shortness of breath, at rest. 15:27 Abdomen/GI: Positive for nausea, abdominal distension. Exam: 15:27 Constitutional: This is a well developed, well nourished patient who is awake, alert, godfrey and in no acute distress. Head/Face: Normocephalic, atraumatic. Eyes: Pupils equal round and reactive to light, extra-ocular motions intact. Lids and lashes normal. Conjunctiva and sclera are non-icteric and not injected. Cornea within normal limits. Periorbital areas with no swelling, redness, or edema. ENT: Nares patent. No nasal discharge, no septal abnormalities noted. Tympanic membranes are normal and external auditory canals are clear. Oropharynx with no redness, swelling, or masses, exudates, or evidence of obstruction, uvula midline. Mucous membranes moist. Neck: Trachea midline, no thyromegaly or masses palpated, and no cervical lymphadenopathy. Supple, full range of motion without nuchal rigidity, or vertebral point tenderness. No Meningismus. Chest/axilla: Normal chest wall appearance and motion. Nontender with no deformity. No lesions are appreciated. Cardiovascular: Regular rate and rhythm with a normal S1 and S2. No gallops, murmurs, or rubs. Normal PMI, no JVD. No pulse deficits. Back: No spinal tenderness. No costovertebral tenderness. Full range of motion. Neuro: Awake and alert, GCS 15, oriented to person, place, time, and situation. Cranial nerves II-XII grossly intact. Motor strength 5/5 in all extremities. Sensory grossly intact. Cerebellar exam normal. Normal gait. Psych: Awake, alert, with orientation to person, place and time. Behavior, mood, and affect are within normal limits. 15:27 ECG was reviewed by the Attending Physician. 15:27 Respiratory: mild respiratory distress is noted, Respirations: normal, Breath sounds: bronchial sounds, decreased breath sounds, rhonchi, that are mild, stridor, is not appreciated, + upper airway congestion. Respiratory rate: 14 Vital Signs: 10:29 BP 112 / 76; Pulse 102; Resp 14 S; Temp 98.2(O); Pulse Ox 88% on R/A; Weight 76.2 kg jl7 (M); Pain 10/10; 12:16 BP 99 / 64; Pulse 94; Resp 16 S; kc6 13:07 BP 128 / 84; Pulse 90; Resp 14; Pulse Ox 100% on Nebulizer Mask; iw 14:15 BP 124 / 75; Pulse 94; Resp 14; Pulse Ox 92% ; jl7 15:00 BP 116 / 78; Pulse 88; Resp 14; Pulse Ox 100% ; jl7 15:45 BP 116 / 76; Pulse 89; Resp 14; Pulse Ox 96% ; jl7 16:30 BP 125 / 84; Pulse 90; Resp 11; Pulse Ox 96% ; jl7 17:15 BP 121 / 79; Pulse 93; Resp 14; Pulse Ox 94% ; jl7 18:00 BP 125 / 77; Pulse 93; Resp 15; Pulse Ox 92% ; jl7 10:29 Pain Scale: Adult jl7 Procedures: 16:14 Central Line: the site was prepped with Betadine, in sterile fashion, a triple lumen godfrey catheter was inserted, in the right femoral vein, in 1 attempts. placement was verified, by blood return, the site was dressed with using sterile technique, the patient tolerated the procedure, well. MDM: 10:27 Patient medically screened. godfrey 15:30 Differential diagnosis: closed fracture, contusion, abrasion. Differential Diagnosis godfrey altered mental status, sepsis, flu. Differential diagnosis: abrasion, closed head injury, contusion, fracture, multiple trauma, sprain, strain, CVA, electrolyte abnormality, alcohol intoxication, hypoglycemia, intracranial bleed, meningitis, pneumonia, sepsis, UTI, volume depletion. Data reviewed: vital signs, nurses notes, EMS record, lab test result(s), EKG, radiologic studies, CT scan, doppler, plain films. Consideration of Admission/Observation Escalation of care including admission/observation considered. I considered the following discharge prescriptions or medication management in the emergency department Medications were administered in the Emergency Department. See MAR. Test considered but Not performed: MRI: no mri brain. Historians other than the Patient: EMS: ems well informed. Care significantly affected by the following chronic conditions: Hypertension, Liver Disease, adhd/add, bipolar. Counseling: I had a detailed discussion with the patient and/or guardian regarding: the historical points, exam findings, and any diagnostic results supporting the discharge/admit diagnosis, lab results, radiology results, the need to transfer to another facility, for higher level of care, [facility] does not immediately have the required specialist. 11/25 10:49 Order name: Basic Metabolic Panel; Complete Time: 15:34 [facility] 11/25 10:49 Order name: CBC with Diff; Complete Time: 12:38 [facility] 11/25 10:49 Order name: LFT's; Complete Time: 15:34 [facility] 11/25 10:49 Order name: Magnesium; Complete Time: 15:35 [facility] 11/25 10:49 Order name: NT PRO-BNP; Complete Time: 15:35 [facility] 11/25 10:49 Order name: PT-INR; Complete Time: 13:59 [facility] 11/25 10:49 Order name: Troponin HS; Complete Time: 15:35 [facility] 11/25 10:49 Order name: Blood Culture Adult (2) [facility] 11/25 10:49 Order name: Lactate w/ 2H reflex if indic.; Complete Time: 13:59 [facility] 11/25 10:49 Order name: Urinalysis w/ reflexes; Complete Time: 13:59 [facility] 11/25 14:07 Order name: AMMONIA; Complete Time: 16:49 [facility] 11/25 14:07 Order name: Acetaminophen; Complete Time: 16:49 [facility] 11/25 15:29 Order name: SARS-COV-2 Antigen Rapid; Complete Time: 16:49 11/25 10:49 Order name: XRAY Chest (1 view); Complete Time: 12:24 [facility] 11/25 10:49 Order name: CT Traumagram (Head C Spine CAP wo con); Complete Time: 12:24 [facility] 11/25 10:49 Order name: Pelvis XRAY; Complete Time: 12:24 [facility] 11/25 10:49 Order name: Femur Right XRAY; Complete Time: 12:24 [facility] 11/25 10:49 Order name: Tib Fib Right XRAY; Complete Time: 12:24 [facility] 11/25 13:07 Order name: Extrem Venous W Compress [place]; Complete Time: 15:35 EDMS 11/25 10:49 Order name: EKG; Complete Time: 10:50 [facility] 11/25 10:49 Order name: Cardiac monitoring; Complete Time: 11:08 [facility] 11/25 10:49 Order name: EKG - Nurse/Tech; Complete Time: 12:49 [facility] 11/25 10:49 Order name: IV Saline Lock; Complete Time: 13:17 [facility] 11/25 10:49 Order name: Labs collected and sent; Complete Time: 13:17 [facility] 11/25 10:49 Order name: O2 Per Protocol; Complete Time: 11:08 [facility] 11/25 10:49 Order name: O2 Sat Monitoring; Complete Time: 11:08 [facility] 11/25 10:49 Order name: Moralse; Complete Time: 11:30 [facility] 11/25 10:49 Order name: Wound Care; Complete Time: 16:12 [facility] 11/25 13:06 Order name: IV Saline Lock - Large Bore; Complete Time: 13:17 [facility] 11/25 14:07 Order name: Central Line Kit; Complete Time: 14:11 [facility] EC:27 Rate is 88 beats/min. Rhythm is regular. QRS [place] is Normal. NE interval is normal. QRS godfrey interval is normal. QT interval is prolonged at 764 msec. No Q waves. T waves are Normal. No ST changes noted. Clinical impression: NSR w/ Non-specific ST/T Changes and No evidence of ischemia. Interpreted by me. Reviewed by me. Administered Medications: 12:20 Drug: Albuterol Inhalation 5 mg Route: Inhalation; iw 14:54 Follow up: Response: No adverse reaction jl7 12:20 Drug: Ipratropium Inhalation Aerosol 0.5 mg Route: Inhalation; iw 14:54 Follow up: Response: No adverse reaction jl7 12:30 Drug: NS 0.9% IV 1000 ml Route: IV; Rate: 1 bolus; Site: left forearm; jl7 13:45 Follow up: Response: No adverse reaction; IV Status: Completed infusion; IV Intake: jl7 1000ml 13:16 Drug: vancoMYCIN IVPB 1 grams Route: IVPB; Infused Over: 2 hrs; Site: left forearm; iw 15:20 Follow up: Response: No adverse reaction; IV Status: Completed infusion; IV Intake: jl7 250ml 13:17 Drug: ceFAZolin IVPB 2 grams Route: IVPB; Infused Over: 30 mins; Site: right wrist; iw 13:50 Follow up: Response: No adverse reaction; IV Status: Completed infusion; IV Intake: jl7 100ml 13:56 Drug: Famotidine IVP 20 mg Route: IVP; Site: left forearm; jl7 15:33 Follow up: Response: No adverse reaction jl7 14:11 Drug: MethylPrednisoLONE IVP 125 mg Route: IVP; Site: left forearm; jl7 14:54 Follow up: Response: No adverse reaction jl7 14:12 Drug: Thiamine IV 100 mg Route: IV; Rate: bolus; Site: left forearm; jl7 14:14 Follow up: Response: No adverse reaction; IV Status: Completed infusion jl7 14:53 Not Given (Pt lethargicc): fentaNYL (PF) IVP 50 mcg IVP once jl7 14:53 Not Given (Other Intervention Used): Ondansetron IVP 4 mg IVP once; over 2 minutes jl7 14:53 Drug: Banana Bag - (NS 0.9% IV 1000 ml, foLIC Acid IVPB 1 mg, Thiamine IV 100 mg, jl7 Multivitamin IV 1 amp) Route: IV; Rate: 150 ml/hr; Site: right forearm; 18:40 Follow up: Response: No adverse reaction; IV Status: Infusion continued upon transfer jl7 15:33 Drug: fentaNYL (PF) IVP 50 mcg Route: IVP; Site: right femoral; jl7 15:45 Follow up: Response: No adverse reaction; Pain is decreased jl7 15:36 Not Given (Duplicate Order): NS 0.9% IV 1000 ml IV at 125 ml/hr continuous godfrey 15:45 Drug: Potassium Chloride IV 20 mEq Route: IV; Rate: per protocol; Site: right femoral; jl7 17:45 Follow up: Response: No adverse reaction; IV Status: Completed infusion jl7 16:11 Drug: Pantoprazole IVP 40 mg Route: IVP; Site: right femoral; jl7 16:19 Follow up: Response: No adverse reaction jl7 16:12 Drug: fentaNYL (PF) IVP 50 mcg Route: IVP; Site: right femoral; jl7 16:40 Follow up: Response: No adverse reaction; Pain is decreased jl7 17:00 Drug: Mupirocin Topical Ointment 2 % 1 application Route: Topical; Site: affected area; jl7 17:51 Follow up: Response: No adverse reaction jl7 17:48 Drug: Phytonadione Sub-Q 10 mg Route: Sub-Q; Site: abdomen; jl7 18:40 Follow up: Response: No adverse reaction jl7 18:30 Drug: fentaNYL (PF) IVP 50 mcg Route: IVP; Site: right femoral; jl7 18:41 Follow up: Response: No adverse reaction jl7 Disposition Summary: 11/25/22 15:34 Transfer Ordered Transfer Location: [facility](11/25/22 15:34) godfrey Reason: Higher level of care(11/25/22 15:34) godfrey Condition: Fair(11/25/22 15:34) godfrey Problem: new(11/25/22 15:34) godfrey Symptoms: have improved(11/25/22 15:34) godfrey Accepting Physician: to [facility](11/25/22 18:41) jl7 Diagnosis - Alcoholic cirrhosis of liver without ascites godfrey - Weakness(11/25/22 15:34) godfrey - Pain in right leg godfrey - Repeated falls(11/25/22 15:34) godfrey - History of falling(11/25/22 15:34) godfrey - Abnormal coagulation profile - not on coumadin INR 4(11/25/22 15:34) godfrey - COPD/ Chronic obstructive pulmonary disease, unspecified godfrey - Hypoxemia godfrey - Hypokalemia godfrey Forms: - Medication Reconciliation Form godfrey - SBAR form godfrey Signatures: Dispatcher [employer] EDMS Mejia Juares MD MD cha Williams, Irene RN AZIZA Abdiel Avila RN RN jl7 Corrections: (The following items were deleted from the chart) 12:12 10:50 Knee Right 3 View+RAD.RAD.BRZ ordered. EDMS EDMS 12:12 10:50 Ankle Right 3 View+RAD.RAD.BRZ ordered. EDMS EDMS 14:54 14:50 to liver team [facility] godfrey godfrey 14:54 14:50 [facility] godfrey godfrey 14:54 14:50 Higher level of care godfrey godfrey 14:54 14:50 Fair godfrey godfrey 14:54 14:50 new godfrey godfrey 14:54 14:50 are unchanged godfrey godfrey 14:54 14:50 Other cirrhosis of liver godfrey godfrey 14:50 Hepatic failure, unspecified without coma godfrey godfrey 14:50 Acute and subacute hepatic failure godfrey godfrey 54 14:50 Weakness godfrey godfrey :54 14:50 History of falling godfrey godfrey 14:50 Repeated falls godfrey godfrey 54 14:50 Abnormal coagulation profile godfrey godfrey 15:37 15:34 [facility] godfrey godfrey 17:02 15:37 [facility] godfrey godfrey 18:41 17:02 [facility] godfrey jl7
--- NOTE | 2022-11-25 14:51 | ER ---
Nurse's Notes [facility] Name: Maisha Leo Age: 62 yrs Sex: Female : 1960 Arrival Date: 11/25/2022 Time: 10:22 Bed 6 Private MD: Diagnosis: Alcoholic cirrhosis of liver without ascites;Weakness;Pain in right leg;Repeated falls;History of falling;Abnormal coagulation profile-not on coumadin INR 4;COPD/ Chronic obstructive pulmonary disease, unspecified;Hypoxemia;Hypokalemia Presentation: 11/25 10:29 Chief complaint: EMS states: Toned out for witness fall, pt with hx of CVA and left jl7 sided deficits, lost her balance reaching for item at the store and fell, small hematoma above right eye. Pt alert on scene, Pt drowsy on arrival to ED, oriented x 4. Coronavirus screen: At this time, the client does not indicate any symptoms associated with coronavirus-19. Ebola Screen: No symptoms or risks identified at this time. Initial Sepsis Screen: Does the patient meet any 2 criteria? No. Patient's initial sepsis screen is negative. Does the patient have a suspected source of infection? No. Patient's initial sepsis screen is negative. Risk Assessment: Do you want to hurt yourself or someone else? Patient reports no desire to harm self or others. Onset of symptoms was November 25, 2022 at 09:30. Care prior to arrival: None. 10:29 Method Of Arrival: EMS: [facility] 10:29 Acuity: ARTURO 3 jl7 Triage Assessment: 10:30 General: Appears in no apparent distress. uncomfortable, unkempt, Behavior is jl7 cooperative, drowsy. Pain: Complains of pain in right leg and left leg, "All over." Pain currently is 10 out of 10 on a pain scale. Is continuous. Neuro: Amado Agitation-Sedation Scale (RASS): -1 Drowsy Level of Consciousness is obeys commands, listless, Oriented to person, place, time, situation. Cardiovascular: Patient's skin is warm and dry. Respiratory: Airway is patent Respiratory effort is even, unlabored, Respiratory pattern is regular, symmetrical. GI: Abdomen is round non-distended. : No signs and/or symptoms were reported regarding the genitourinary system. Derm: Skin is jaundiced, Skin temperature is warm Wound noted right foot and right knee Bruising that is dark purple, on right leg. Historical: - Allergies: 10:36 PENICILLINS; jl7 - Home Meds: 13:19 amlodipine 10 mg tablet daily [Active]; gabapentin 600 mg Oral tablet 1 tab 3 times per iw day [Active]; lamotrigine 25 mg (84) -100 mg (14) Oral tablet [Active]; Keppra 500 mg Oral tablet 2 times per day [Active]; amitriptyline 50 mg Oral tablet every day at bedtime [Active]; levothyroxine 100 mcg tablet daily [Active]; atorvastatin 40 mg oral tablet daily [Active]; alprazolam 0.5 mg Oral tablet 3 times per day [Active]; trazodone 100 mg Oral tablet [Active]; midodrine 5 mg oral tablet 3 times per day [Active]; - PMHx: 10:36 ADD/ADHD; Bipolar disorder; Cerebrovascular accident; Cirrhosis; COPD; CVA; Left sided jl7 weakness; Fibromyalgia; Hypertension; Hypothyroidism; Myocardial infarction; Seizures; - PSHx: 10:36 right big toe; jl7 - Immunization history:: Adult Immunizations unknown. - Social history:: Smoking status: Patient reports the use of cigarette tobacco products. Screenin:30 [facility] ED Fall Risk Assessment (Adult) History of falling in the last 3 months, kc6 including since admission Yes- single mechanical fall (1 pt) Confusion or Disorientation No (0 pts) Intoxicated or Sedated No (0 pts) Impaired Gait Yes (1 pt) Mobility Assist Device Used Yes (1 pt) Altered Elimination Yes (1 pt) Score/Fall Risk Level 3 or more points = High Risk Oriented to surroundings, Maintained a safe environment, Educated pt \\T\\ family on fall prevention, incl call for assistance when getting out of bed, Assessed \\T\\ reinforced patient's understanding of fall precautions, Hourly rounding (assess needs \\T\\ fall precautionary measures) done. Abuse screen: Denies threats or abuse. Denies injuries from another. Nutritional screening: No deficits noted. Tuberculosis screening: No symptoms or risk factors identified. Assessment: 10:30 General: See triage assessment. jl7 12:45 Reassessment: Unable to obtain second set of blood cultures, phlebotomy notified. jl7 14:15 Reassessment: Pt laying in bed with eyes closed, respirations even and unlabored, no jl7 signs of distress noted at this time. 14:15 Reassessment: Patient appears in no apparent distress at this time. No changes from jl7 previously documented assessment. Patient and/or family updated on plan of care and expected duration. Pain level reassessed. Patient is alert, oriented x 3, equal unlabored respirations, skin warm/dry/pink. 16:15 Reassessment: Patient appears in no apparent distress at this time. Patient and/or jl7 family updated on plan of care and expected duration. Pain level reassessed. Patient is alert, oriented x 3, equal unlabored respirations, skin warm/dry/pink. Dr. Juares placed central line to right femoral. 17:15 Reassessment: Pt laying in bed with eyes closed, respirations even and unlabored, no jl7 signs of distress noted at this time. 18:25 Reassessment: EMS at bedside to transport pt. jl7 Vital Signs: 10:29 BP 112 / 76; Pulse 102; Resp 14 S; Temp 98.2(O); Pulse Ox 88% on R/A; Weight 76.2 kg jl7 (M); Pain 10/10; 12:16 BP 99 / 64; Pulse 94; Resp 16 S; kc6 13:07 BP 128 / 84; Pulse 90; Resp 14; Pulse Ox 100% on Nebulizer Mask; iw 14:15 BP 124 / 75; Pulse 94; Resp 14; Pulse Ox 92% ; jl7 15:00 BP 116 / 78; Pulse 88; Resp 14; Pulse Ox 100% ; jl7 15:45 BP 116 / 76; Pulse 89; Resp 14; Pulse Ox 96% ; jl7 16:30 BP 125 / 84; Pulse 90; Resp 11; Pulse Ox 96% ; jl7 17:15 BP 121 / 79; Pulse 93; Resp 14; Pulse Ox 94% ; jl7 18:00 BP 125 / 77; Pulse 93; Resp 15; Pulse Ox 92% ; jl7 10:29 Pain Scale: Adult jl7 ED Course: 10:24 Patient arrived in ED. em1 10:27 Mejia Juares MD is Attending Physician. godfrey 10:29 Abdiel Avila RN is Primary Nurse. jl7 10:29 Arm band placed on. kc6 10:30 Client placed on continuous cardiac and pulse oximetry monitoring. NIBP monitoring jl7 applied. 10:30 Warm blanket given. jl7 10:36 Triage completed. jl7 10:45 Patient has correct armband on for positive identification. Placed in gown. Bed in low kc6 position. Call light in reach. Side rails up X2. 10:45 Cleaned of incontinence. Linen changed. jl7 11:00 Urine collected: Morales catheter specimen, jenny colored. Morales cath inserted, using jl7 sterile technique, 16 Fr., by me, balloon inflated, to gravity drainage, urine specimen collected. 11:16 Radiology exam delayed due to nurse in with pt, will call when ready for CT. bq 11:29 CT Traumagram (Head C Spine CAP wo con) In Process Unspecified. EDMS 11:30 Inserted saline lock: 22 gauge in left forearm, using aseptic technique. Blood jl7 collected. 11:30 Initial lab(s) drawn, by me, sent to lab. First set of blood cultures drawn. jl7 12:14 XRAY Chest (1 view) In Process Unspecified. EDMS 12:14 Pelvis XRAY In Process Unspecified. EDMS 12:14 Femur Right XRAY In Process Unspecified. EDMS 12:14 Tib Fib Right XRAY In Process Unspecified. EDMS 12:15 Inserted saline lock: 22 gauge in right wrist, using aseptic technique. jl7 12:49 EKG done, by ED staff, reviewed by Mejia Juares MD. em1 14:02 Extrem Venous W Compress [place] In Process Unspecified. EDMS 15:20 Assisted provider with central line placement. Set up central line tray. Triple lumen jl7 line placed in right femoral. Line placed by Mejia Juares MD Placement verified by blood return, Dressed with Tegaderm, Blood was collected. Patient tolerated well. Before procedure, did Practitioner(s) obtain informed consent? Yes. Patient \\T\\ family education about procedure, CLABSI prevention and S/S of infection? Yes. Time-out/Briefing performed prior to start of procedure? Yes. Was handwashing/sanitizing done immediately prior to procedure? Yes. Was patient positioned to in a way to prevent air embolism? Yes. Was procedure site sterilized? Yes, with chlorhexidine. Was the site allowed to dry? Yes. Was local anesthetic and/or sedation utilized? Yes. During the procedure, did the Practitioner(s) maintain a sterile field? Yes. Were unused ports clamped during insertion? Yes. Was a 2nd qualified MD obtained after 3 unsuccessful insertion attempts? No. Was blood aspirated from each lumen? Yes. After the procedure, did the Practitioner(s) clean the site and apply a sterile dressing? Yes. 15:31 initiated transfer to [facility]. bd 15:34 pt denied at [facility] due to no beds available at this time, per Stormy Luna. bd 15:39 initiated transfer to [facility]. bd 18:41 Patient transferred, IV remains in place. intact, No redness/swelling at site. jl7 Administered Medications: 12:20 Drug: Albuterol Inhalation 5 mg Route: Inhalation; iw 14:54 Follow up: Response: No adverse reaction jl7 12:20 Drug: Ipratropium Inhalation Aerosol 0.5 mg Route: Inhalation; iw 14:54 Follow up: Response: No adverse reaction jl7 12:30 Drug: NS 0.9% IV 1000 ml Route: IV; Rate: 1 bolus; Site: left forearm; jl7 13:45 Follow up: Response: No adverse reaction; IV Status: Completed infusion; IV Intake: jl7 1000ml 13:16 Drug: vancoMYCIN IVPB 1 grams Route: IVPB; Infused Over: 2 hrs; Site: left forearm; iw 15:20 Follow up: Response: No adverse reaction; IV Status: Completed infusion; IV Intake: jl7 250ml 13:17 Drug: ceFAZolin IVPB 2 grams Route: IVPB; Infused Over: 30 mins; Site: right wrist; iw 13:50 Follow up: Response: No adverse reaction; IV Status: Completed infusion; IV Intake: jl7 100ml 13:56 Drug: Famotidine IVP 20 mg Route: IVP; Site: left forearm; jl7 15:33 Follow up: Response: No adverse reaction jl7 14:11 Drug: MethylPrednisoLONE IVP 125 mg Route: IVP; Site: left forearm; jl7 14:54 Follow up: Response: No adverse reaction jl7 14:12 Drug: Thiamine IV 100 mg Route: IV; Rate: bolus; Site: left forearm; jl7 14:14 Follow up: Response: No adverse reaction; IV Status: Completed infusion jl7 14:53 Not Given (Pt lethargicc): fentaNYL (PF) IVP 50 mcg IVP once jl7 14:53 Not Given (Other Intervention Used): Ondansetron IVP 4 mg IVP once; over 2 minutes jl7 14:53 Drug: Banana Bag - (NS 0.9% IV 1000 ml, foLIC Acid IVPB 1 mg, Thiamine IV 100 mg, jl7 Multivitamin IV 1 amp) Route: IV; Rate: 150 ml/hr; Site: right forearm; 18:40 Follow up: Response: No adverse reaction; IV Status: Infusion continued upon transfer jl7 15:33 Drug: fentaNYL (PF) IVP 50 mcg Route: IVP; Site: right femoral; jl7 15:45 Follow up: Response: No adverse reaction; Pain is decreased jl7 15:36 Not Given (Duplicate Order): NS 0.9% IV 1000 ml IV at 125 ml/hr continuous godfrey 15:45 Drug: Potassium Chloride IV 20 mEq Route: IV; Rate: per protocol; Site: right femoral; jl7 17:45 Follow up: Response: No adverse reaction; IV Status: Completed infusion jl7 16:11 Drug: Pantoprazole IVP 40 mg Route: IVP; Site: right femoral; jl7 16:19 Follow up: Response: No adverse reaction jl7 16:12 Drug: fentaNYL (PF) IVP 50 mcg Route: IVP; Site: right femoral; jl7 16:40 Follow up: Response: No adverse reaction; Pain is decreased jl7 17:00 Drug: Mupirocin Topical Ointment 2 % 1 application Route: Topical; Site: affected area; jl7 17:51 Follow up: Response: No adverse reaction jl7 17:48 Drug: Phytonadione Sub-Q 10 mg Route: Sub-Q; Site: abdomen; jl7 18:40 Follow up: Response: No adverse reaction jl7 18:30 Drug: fentaNYL (PF) IVP 50 mcg Route: IVP; Site: right femoral; jl7 18:41 Follow up: Response: No adverse reaction jl7 Medication: 14:15 VIS not applicable for this client. jl7 Intake: 13:45 IV: 1000ml; Total: 1000ml. jl7 13:50 IV: 100ml; Total: 1100ml. jl7 15:20 IV: 250ml; Total: 1350ml. jl7 Outcome: 14:50 ER care complete, transfer ordered by MD. godfrey 15:34 ER care complete, transfer ordered by . godfrey 18:37 Transferred by ground EMS to [facility], Transfer form completed. jl7 18:37 Condition: stable 18:37 Discharge instructions given to patient, Instructed on the need for transfer, Demonstrated understanding of instructions. 18:41 Patient left the ED. jl7 Signatures: Dispatcher [employer] EDMS Princess Kang Corey, MD MD cha Quilty, Betty bq Williams, Irene, AZIZA RN iw Vishnu Marie em1 Kely Cleary RN RN aa5 Abdiel Avila RN RN jl7 Sierra Pederson RN RN kc6 Corrections: (The following items were deleted from the chart) 10:28 10:24 Arm band placed on aa5 aa5 13:23 10:30 Reassessment: please see triage assessment [facility] iw 13:25 11:30 Reassessment: Patient appears in no apparent distress at this time. No changes iw from previously documented assessment. Patient and/or family updated on plan of care and expected duration. Pain level reassessed. Patient is alert, oriented x 3, equal unlabored respirations, skin warm/dry/pink. [facility] 14:24 10:30 Inserted saline lock: 22 gauge in left forearm, using aseptic technique. Blood jl7 collected. 7 14:24 10:30 Initial lab(s) drawn, by pa, sent to lab. First set of blood cultures drawn jl7 jl7 14:24 11:30 Inserted saline lock: 22 gauge in right wrist, using aseptic technique. jl7 jl7
--- NOTE | 2022-11-25 15:02 | RAD REPORT ---
EXAM DESCRIPTION: US - Extrem Venous W Compress [place] - 11/25/2022 2:00 pm CLINICAL HISTORY: Lower extremity swelling COMPARISON: None. TECHNIQUE: Real-time sonographic evaluation of the bilateral lower extremity deep venous systems was performed. FINDINGS: Normal compressibility, flow augmentation, phasic flow and spontaneous flow is identified in both the left and right lower extremity deep venous systems. No intraluminal filling defects seen. Bilateral popliteal fossa cysts, larger on the left, measuring 5.9 x 2.9 centimeter in greatest dimen zelal[place], suggestive of Ding cyst. IMPRESSION: No evidence of DVT in either lower extremity. Bilateral Ding cyst.
[2022-11-25 15:18] LABS: Albumin 3.1 g/dL (3.4-5.0); Bilirubin Direct 0.7 mg/dL (0-0.2); Bilirubin Indirect, Calculated 1.2 mg/dL (0.2-0.8); Bilirubin Total 1.9 mg/dL (0.2-1.0); Magnesium 2.1 mg/dL (1.6-2.4); Potassium 3.1 mEq/L (3.5-5.1); Protein, Total 7.6 g/dL (6.4-8.2); Troponin High Sensitivity 12.1 pg/mL (<58.9)
[2022-11-25] MEDS ORDERED: PANTOPRAZOLE 40 MG INJ ONE (15:57)
[2022-11-25] MEDS ORDERED: KCL 20 MEQ/100 mL IVPB 100 ML IV ONE (15:58)
[2022-11-25 16:04] LABS: SARS-CoV-2 Antigen Rapid Res Negative (Negative)
[2022-11-25] MEDS ORDERED: VITAMIN K (ADULT) 10 MG/ML ONE (17:52)
[2022-11-25 19:22] VITALS: TEMP 98.2
[2022-11-25 19:32] VITALS: BP 125/77; O2SAT 92
--- NOTE | 2022-11-27 19:16 | EKG ---
Test Date: 2022-11-25 Test Time: 12:45:03 Inbound Call Center Representative: RUDY MEASUREMENT RESULTS: Intervals: Rate: 88 [place]: 190 QRSD: 94 QT: 632 QTc: 764 [place]: P: 62 KS: 190 QRS: -10 T: 65 INTERPRETIVE STATEMENTS: Normal sinus rhythm Inferior infarct, age undetermined Anterior infarct, age undetermined Prolonged QT Abnormal ECG Compared to ECG 11/21/2022 12:37:38 Prolonged QT interval now present Myocardial infarct finding still present Electronically Signed On 11-27-22 19:11:25 CDT by Andrew Upton
== END 2022-11-25 18:41 | disposition short-term general hospital (02) ==
LOC: ER 10:22
PROC: 06HM33Z Insertion of Infusion Device into Right Femoral Vein, Percutaneous Approach (ICD-10-PCS; principal; 2022-11-25)
DX: K70.30 Alcoholic cirrhosis of liver without ascites (principal); M79.604 Pain in right leg; E87.6 Hypokalemia; R09.02 Hypoxemia; J44.9 Chronic obstructive pulmonary disease, unspecified; R79.1 Abnormal coagulation profile; R29.6 Repeated falls; Z91.81 History of falling; I10 Essential (primary) hypertension; I25.2 Old myocardial infarction; Z20.822 Contact with and (suspected) exposure to COVID-19; Z72.0 Tobacco use
CPT/HCPCS: 93005; 87040 ×2; 85025; 81001; 80048; 36415; 82140; 83735; 85610; 80076; 83605; 84484; 83880; 70450; 71250; 72125; 71045; 72170; 73552; 73590; 93970; 51702; 96372; 99285; 80143; 87811; 36556; J3411 ×2; J3480; J3430; J7613; J7644; C9113; J3010 ×2; J2930; J7050; J7030 ×3; J0690; J2405

== ENCOUNTER 2022-11-28 17:12 | Emergency (ER) | payer OTHER ==
--- OUTSIDE RECORDS SUMMARY | 2022-11-28 17:17 | XMS REPORT | Continuity of Care Document ---
:1960 Author Organization [facility] t Address [address] [facility] [place] [place] [address] Care Team Providers Name Role Phone AL AGUILAR Primary Care Physician Unavailable LILIAN JAVIER Attending Clinician Unavailable JEFFERY IRIZARRY Attending Clinician Unavailable Lilian Javier MD Attending Clinician Mihai Villalba MD Attending Clinician Jeffery Irizarry MD Attending Clinician TAVO VIZCAINO Attending Clinician Unavailable Doctor Unassigned, [place] Attending Clinician Unavailable Al Aguilar MD Attending Clinician JEFFERY IRIZARRY Admitting Clinician Unavailable Payers Payer Name Policy Type Policy Number Effective Date Expiration Date Danielle zee FORMERLY [facility] STAR [id number] 2021 00:00:00 [facility] STAR [id number] 2016 00:00:00 PLUS Problems Condition Condition Condition Status Onset Resolution Last Treating Co mments Source Name Details Category Date Date Treatment Clinician Date Alcoholic Alcoholic Disease Recurre [facility] cirrhosis, cirrhosis, nce 6-21 [facility] unspecifie unspecifie 00:00: Me dical d whether d whether 00 Cent er ascites ascites present present Cirrhosis Cirrhosis Disease Rec[facility]re [facility]: [facility] 00 Center Essential Essential Disease Active Uni vers hypertensi hypertensi 7-26 it y of on on 00:00: [place] 00 Medical Branch Obesity Obesity Disease Active Univers (BMI (BMI 5-25 ity of 30-39.9) 30-39.9) 00:00: [place] 00 Medical Branch Osteomyeli Osteomyeli Disease Active U nivers tis tis 5-24 ity of 00:00: [place] [facility] Positive Positive Disease Active 2015-06 Unive rs serology serology 1-15 ity of for for 00:00: [place] syphilis syphilis 00 Medica l Branch 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 1-15 it y of ve ve 00:00: [place] [facility] Trichomoni Trichomoni Disease Active 2015-06 U nivers asis asis 0-26 ity of 00:00: [place] 00 Medical Branch Tobacco Tobacco Disease Active 2015-06 Univers use use 0-24 ity of 00:00: [place] 00 Medical Branch Arthralgia Arthralgia Disease Active 2015-06 U nivers of of 0-24 ity of multiple multiple 00:00: [place] joints joints 00 Medical Branch Seizure Seizure Disease Active 2015-06 Univers disorder disorder 0-24 ity of 00:00: [place] 00 Medical Branch Accelerate Accelerate Disease Active 2015-06 U nivers d d 0-24 ity of hypertensi hypertensi [place] Chronic Chronic Disease Active 2015-06 Univers neck pain neck pain 0-24 ity of 00:00: [place] 00 Medical Branch Chronic Chronic Disease Active [...] and 00 Medical cirrhosis cirrhosis Bran ch Alcohol Alcohol [...] [place] Medical Branch Cervical Cervical Disease Active [facility] myelopathy myelopathy 5-01 [facility] 00:00: Medical 00 Center Severe Severe Disease Active [facility] Cervical Cervical 5-01 [facility] stenosis stenosis 00:00: Medica l of spine of spine 00 Center Weakness Weakness Disease Active [facility] 4-30 [facility] 00:[facility]: Medical 00 Center Encephalop Encephalop Disease Active [facility] athy acute athy acute 4-30 Rain kes 00:00: Medical 00 Center Altered Altered Disease Active [facility] mental mental 7-18 [facility] state state 00:00: Medical Center Cerebral Cerebral Disease Active Overview: [facility] infarction infarction 6-30 [facility] 00:00: g of this Medical 00 note Center might be different from the original. UPDATED BY ICD10 SNOMED/IM O UPDATES Right Right Disease Active [facility] hemiparesi hemiparesi 6-30 [facility] s s 00:00: Medical Center Aphasia Aphasia Disease Active [facility] 6-30 [facility] 00:[facility]: Medical 00 Center Edema Edema Disease Active Overview: [facility] 6-30 [facility] 00:00: g of this Medical note Center might be different from the original. BLE SOB SOB Disease Active [facility] (shortness (shortness 6-30 Rain kes of breath) of breath) 00:00: Me dical 00 Center Bipolar I Bipolar I Disease Active Uni vers disorder, disorder, 8-31 ity of most most 00:00: [place] recent recent 00 Medical episode episode Branch (or (or current) current) depressed, depressed, severe, severe, without without mention of mention of psychotic psychotic behavior behavior HLD HLD Disease Active Univers (hyperlipi (hyperlipi it y of demia) demia) [facility] Acquired Acquired Disease Active Unive rs hypothyroi hypothyroi it y of dism dism [facility] Hypertensi Hypertensi Disease Active [facility] on on [facility] Thyroid Thyroid Disease Active [facility] disease disease [facility] Coronary Coronary Disease Active [facility] S t artery artery [facility] [place] Disease Active [facility] (myocardia (myocardia Rain kes l l Medical infarction infarction Ce nter ) ) Seizures Seizures Disease Active [facility] S t [facility] Stroke Stroke Disease Active Overview: [facility] g of this Medical note Center might be different from the original. x2 Fibromyalg Fibromyalg Disease Active [facility] ia ia [facility] Allergies, Adverse Reactions, Alerts Allergy Allergy Status Severity Reaction(s) Onset Inactive Treating Comm ents Source Name Type Date Date Clinician PENICILL Allergy Active High Anaphylaxis [facility] INS 630 [facility] 00:[facility]: Medical [address] [place] [address] Penicill Drug Active Anaphylaxis, [facility] ins Allergy Rash 6-30 [facility] 00:[facility]: Medical [address] [place] [address] Penicill Propensi Active Rash Univer s ins ty to 8-29 ity of adverse 00:00: [place] reaction 00 [facility] PENICILL Drug Active Rash Univers INS Class 8-29 ity of 00:00: [place] [address] [place] [address] Penicill Propensi Active Rash Univer s ins ty to 8-29 ity of adverse 00:00: [place] reaction 00 [facility] Family History Family Member Diagnosis Comments Start Date Stop Date Source Natural mother Heart disease [facility] Natural mother Stroke [facility] Social History Social Habit Start Date Stop Date Quantity Comments Source History of tobacco Cigarette Smoker University of use [facility] Tobacco use and 2015-08-01 2015-08-01 Smokeless tobacco Un iversity of exposure 00:00:00 00:00:00 non-user [facility] Cigarette 2015-08-01 2015-08-01 University of pack-years 00:00:00 00:00:00 [facility] Tobacco Comment 2014-12-26 2014-12-26 smokes 6 cig/day Uni versity of 00:00:00 00:00:00 [facility] Alcohol intake 2014-10-06 2014-10-06 [facility]er [facility] 00:00:00 of alcohol [facility] Center (finding) Cigarettes smoked 2012-12-24 2012-12-[address] [facility] current (pack per 00:00:00 00:00:00 Medical Center day) - Reported Alcohol Comment 2012-12-06 2012-12-06 EtOH abuse, no [facility] 00:[facility] 00:00:00 h/o withdrawal Medical Ce nter seizures Sex Assigned At [address] [facility] 00:00:00 00:00:00 Medical Center Smoking Status Start Date Stop Date Source Smokes tobacco daily 2015-08-01 00:00:00 Univers ity [facility] Medications Ordered Filled Start Stop Current Ordering Indication Dosage Frequency Signature Comments Components Source Medication Medication Date Date Medication? Clinician (SIG) Name Name aspirin 81 2022-0 Yes 81mg Take 1 [facility] MG chewable 6-22 tablet (81 [facility] tablet 13:31: mg total) Medica l 04 by mouth. [place] levothyroxi 2022-0 Yes 75ug Take [address] ne 6-22 tablet (75 [facility] (SYNTHROID, 13:31: mcg total) Medical LEVOTHROID) 04 by mouth Cent er 75 MCG Every tablet morning on an empty stomach. gabapentin 2022-0 Yes 600mg Q.[id number] Take [address] (NEURONTIN) 6-22 [id number] tablet [facility] 600 MG 13:31: 3D (600 mg Medical tablet 04 total) by Center mouth 3 (three) times daily. cyclobenzap 2022-0 Yes 30mg Take [address] [facility] rine 6-22 capsule [facility]ukes (AMRIX) 30 13:31: (30 mg Medic al MG 24 hr 04 total) by Center capsule mouth daily as needed for Muscle spasms. levETIRAcet 2022-0 Yes 1000mg Q.5D Take [address] am (KEPPRA) 6-22 tablet [facility] 1000 MG 13:31: (1,000 mg Medic al tablet 04 total) by Center mouth 2 (two) times daily. amLODIPine 2022-0 Yes 10mg QD Take 1 [facility] t (NORVASC) 6-22 tablet (10 Luke s 10 MG 13:31: mg total) Medical tablet 04 by mouth Center daily. lisinopriL Yes 40mg QD Take 1 [facility] t (PRINIVIL,Z 6-22 tablet (40 Rain kes ESTRIL) 40 13:31: mg total) Me dical MG tablet 04 by mouth Center daily. ALPRAZolam Yes .5mg Take 1 [facility] t (XANAX) 0.5 6-22 tablet [facility] MG tablet 13:31: (0.5 mg Medic al 04 total) by Center mouth 3 (three) times daily as needed for Anxiety. Max Daily Amount: 1.5 mg HYDROcodone Yes 1{tbl} Take [address] -acetaminop 6-22 tablet by Tay calvo hen (NORCO 13:31: mouth Medica l 10-325) 04 every 6 Center 10-325 mg (six) per tablet hours as needed for Pain. Max Daily Amount: 4 tablets meloxicam Yes 7.5mg Q.5D Take 1 [facility] t (MOBIC) 7.5 6-22 tablet [facility] MG tablet 13:31: (7.5 mg Medic al 04 total) by Center mouth 2 (two) times daily. acetaminoph 2022- Yes 1{tbl} Take [address] en-codeine 11-27 tablet by Tya calvo (TYLENOL 00:00: 23:59 mouth Medical #3) 300-30 00 :00 every 8 Center mg per (eight) tablet hours as needed for up to 10 days. Max Daily Amount: 3 tablets clindamycin 2022- Yes 300mg Q.[id number] Take [address] (CLEOCIN) 11-27- [id number] capsule [facility] 300 MG 00:00: 23:59 3D (300 mg Medical capsule 00 :00 total) by Center mouth 3 (three) times daily for 5 days. gabapentin 2018-06 Yes [id number] 400mg Take 1 Univers (NEURONTIN) 2-14 capsule by it y of 400 mg 00:00: mouth 3 [place] capsule 00 (three) Medical times Branch daily. cyclobenzap 2018-06 Yes [id number] 10mg Take 1 Univers rine 10 mg 2-14 tablet by ity of tablet 00:00: mouth 3 [place] 00 (three) Medical times Branch daily. cyclobenzap 2019-0 Yes [id number] 10mg Take 1 Univers rine 10 mg 7-26 tablet by ity of tablet 00:00: mouth (three) Medical times Branch daily as needed for Muscle Spasms. gabapentin 2019-0 Yes [id number] 400mg Take 1 Univers 400 mg 7-26 capsule by ity of capsule 00:00: mouth (three) Medical times Branch daily. amLODIPine 2018- Yes [id number] 5mg Take 1 U nivers 5 mg tablet 7-26 tablet by ity of 00:00: mouth 00 daily. Medical Branch cyclobenzap 2018- Yes [id number] 10mg Take 1 Univers rine 10 mg 7-26 tablet by ity of tablet 00:00: mouth (three) Medical times Branch daily as needed for Muscle Spasms. gabapentin 2018- Yes [id number] 400mg Take 1 Univers 400 mg 7-26 capsule by ity of capsule 00:00: mouth (three) Medical times Branch daily. amLODIPine Yes [id number] 5mg Take 1 U nivers 5 mg tablet 7-26 tablet by ity of 00:00: mouth 00 daily. Medical Branch cyclobenzap Yes [id number] 10mg Take 1 Univers rine 10 mg 7-26 tablet by ity of tablet 00:00: mouth (three) Medical times Branch daily as needed for Muscle Spasms. gabapentin 2018- Yes [id number] 400mg Take 1 Univers 400 mg 7-26 capsule by ity of capsule 00:00: mouth (three) Medical times Branch daily. amLODIPine Yes [id number] 5mg Take 1 U nivers 5 mg tablet 7-26 tablet by ity of 00:00: mouth 00 daily. Medical Branch amLODIPine 2018-0 Yes [id number] 5mg Take 1 U nivers 5 mg tablet 7-26 tablet by ity of 00:00: mouth 00 daily. Medical Branch LEVOTHYROXI Yes TAKE 1 Univ ers NE 75 mcg 5-07 TABLET BY ity o f tablet 00:00: MOUTH [place] 00 EVERY Medical MORNING Branch LEVETIRACET Yes TAKE 1 Univ ers AM 500 [...] [place] 00 EVERY DAY Medical Branch AMLODIPINE 2017-0 2019- No TAKE 1 Univ ers 5 mg tablet 5-12 13- TABLET BY it y of 00:00: 00:00 MOUTH [place] 00 :00 EVERY DAY Medical Branch METOPROLOL 2018-0 Yes TAKE 1 Unive rs TARTRATE 50 3-12 TABLET BY ity of mg tablet 00:00: MOUTH [place] 00 TWICE A Medical DAY Branch METOPROLOL 2017-0 2019- No TAKE 1 Univ ers TARTRATE 50 3-12 -26 TABLET BY it y of mg tablet 00:00: 00:00 MOUTH [place] 00 :00 TWICE A Medical DAY Branch GABAPENTIN 2016- Yes TAKE 3 Unive rs 300 mg 0-27 CAPSULES ity of capsule 00:00: BY MOUTH [place] 00 THREE Medical TIMES Branch DAILY. GABAPENTIN 2016- 2019- No TAKE 3 Univ ers 300 mg 0-27 -26 CAPSULES ity of capsule 00:00: 00:00 BY MOUTH [place] 00 :00 THREE Medical TIMES Branch DAILY. Walker 2017-0 Yes [id number] Use as Unive rs (ULTRA-LIGH 6-27 directed ity of T ROLLATOR) 00:00: [place] [address] Medical Branch Walker 2017-0 Yes [id number] Use as Unive rs (ULTRA-LIGH 6-27 directed ity of T ROLLATOR) 00:00: [place] [address] Medical Branch Walker 2017-0 Yes [id number] Use as Unive rs (ULTRA-LIGH 6-27 directed ity of T ROLLATOR) 00:00: [place] [address] Medical Branch Walker 2017-0 Yes [id number] Use as Unive rs (ULTRA-LIGH 6-27 directed ity of T ROLLATOR) 00:00: [place] [address] Medical Branch Walker 2017-0 Yes [id number] Use as Unive rs (ULTRA-LIGH 6-27 directed ity of T ROLLATOR) 00:00: [place] [address] Medical Branch metroNIDAZO 2017-0 Yes 500mg Take 1 Uni vers LE 500 mg 6-12 tablet by ity o f tablet 00:00: mouth 2 [place] (two) Medical times Branch daily. metroNIDAZO 2017-0 Yes 500mg Take 1 Uni vers LE 500 mg 6-12 tablet by ity o f tablet 00:00: mouth 2 [place] (two) Medical times Branch daily. metroNIDAZO 2017-0 [...] by mouth ity of tablet 20:00: daily. [address] aspirin 81 2017-0 Yes 81mg Take 81 mg U nivers mg chewable 6-09 by mouth ity of tablet 20:00: daily. [address] aspirin 81 2017-0 Yes 81mg Take 81 mg U nivers mg chewable 6-09 by mouth ity of tablet 20:00: daily. [address] aspirin 81 2017-0 Yes 81mg Take 81 mg U nivers mg chewable 6-09 by mouth ity of tablet 20:00: daily. [address] aspirin 81 2017-0 Yes 81mg Take 81 mg U nivers mg chewable 6-09 by mouth ity of tablet 15:00: daily. [place] 38 Medical Branch KCL 10 mEq Yes [id number] 10meq Take 1 Univers tablet 6-09 tablet by ity of 00:00: mouth [place] 00 daily. Medical Branch KCL 10 mEq Yes [id number] 10meq Take 1 Univers tablet 6-09 tablet by ity of 00:00: mouth [place] 00 daily. Medical Branch KCL 10 mEq Yes [id number] 10meq Take 1 Univers tablet 6-09 tablet by ity of 00:00: mouth [place] 00 daily. Medical Branch KCL 10 mEq Yes [id number] 10meq Take 1 Univers tablet 6-09 tablet by ity of 00:00: mouth [place] 00 daily. Medical Branch KCL 10 mEq Yes [id number] 10meq Take 1 Univers tablet 6-09 tablet by ity of 00:00: mouth [place] 00 daily. Medical Branch baclofen 10 Yes Univer s mg tablet 6-06 ity of 00:00: [place] 00 Medical Branch baclofen 10 2019- No Unive rs mg tablet 6 07-26 ity of 00:00: 00:00 [place] 00 :00 [...] times Medical daily. Branch acetaminoph 2015-06 Yes [id number] 1{tbl} Take 1 Univers en-codeine 1-17 07 tablet by ity of (TYLENOL 00:00: mouth [place] #3) 300-30 00 every 6 Medica l mg tablet (six) Branch hours as needed for Pain (scale 7-10) or Pain unrelieved by non-narcot ic analgesics . acetaminoph 2015-06 2019- No [id number] 1{tbl} Take 1 Univers en-codeine -17 07-26 07 tablet by ity of (TYLENOL 00:00: 00:00 mouth [place] #3) 300-30 00 :00 every 6 Medica [...] Branch daily as needed for Muscle Spasms. lactulose Yes 20g Q.[id number] Take [address] (CHRONULAC) 5-14 [id number] mLs (20 g [facility] 20 gram/30 00:00: 3D total) by Hi dical mL solution 00 mouth 3 Cente r (three) times daily. Immunizations Ordered Filled Immunization Date Status Comments [facility] e Immunization Name Name TDAP (ADACEL) 2016-04-25 Completed University of VACCINE 00:00:00 [facility] TDAP (ADACEL) 2016-04-25 Completed University of VACCINE 00:00:00 [facility] TDAP (ADACEL) 2016-04-25 Completed University of VACCINE 00:00:00 [facility] TDAP (ADACEL) 2016-04-25 Completed University of VACCINE 00:00:00 [facility] TDAP (ADACEL) 2016-04-25 Completed University of VACCINE 00:00:00 [facility] Influenza Virus 2016-04-01 Completed Universit y of Vaccine Quad IM 00:00:00 [facility] ical Multi-dose 6+ MO Branch Influenza Virus [...] Vaccine Quad IM 3+ 00:00:00 [facility] Pneumococcal 2015-08-24 Completed University o f Polysaccharide, 00:00:00 [place] Med ical PPSV23 (PNEUMOVAX) Branch Influenza Virus 2015-08-24 Completed Universit y of Vaccine Quad IM 3+ 00:00:00 [facility] Pneumococcal 2015-08-24 Completed University o f Polysaccharide, 00:00:00 [facility] ical PPSV23 (PNEUMOVAX) Branch Influenza Virus 2015-08-24 Completed Universit y of Vaccine Quad IM 3+ 00:00:00 [facility] Pneumococcal 2015-08-24 Completed University o f Polysaccharide, 00:00:00 [facility] ical PPSV23 (PNEUMOVAX) Branch Influenza Virus 2015-08-24 Completed Universit y of Vaccine Quad IM 3+ 00:00:00 [facility] Pneumococcal 2015-08-24 Completed University o f Polysaccharide, 00:00:00 [facility] ical PPSV23 (PNEUMOVAX) Branch Influenza Virus 2015-08-24 Completed Universit y of Vaccine Quad IM 3+ 00:00:00 [facility] HEPATITIS A 2014-10-06 Completed University of 00:00:00 [facility] Hepatitis A 2014-10-[address] [facility] 00:00:00 Medical Center Vital Signs Vital Name Observation Time Observation Value Comments Source Systolic blood 2019-01-01 13:32:00 142 mm[Hg] Univer sity of pressure [facility] Diastolic blood 2019-01-01 13:32:00 100 mm[Hg] Unive rsity of pressure [facility] Heart rate 2019-01-01 13:32:00 86 /min [facility] Body temperature 2019-01-01 13:32:00 36.44 Eryn [facility] Body height 2019-01-01 13:32:00 165.1 cm [facility] Body weight 2019-01-01 13:32:00 81.647 kg [facility] BMI 2019-01-01 13:32:00 29.95 kg/m2 [facility] Systolic blood 2022-11-27 11:23:00 104 mm[Hg] [facility] Diastolic blood 2022-11-27 11:23:00 72 mm[Hg] [facility] Heart rate 2022-11-27 11:23:00 77 /min [facility] Body temperature 2022-11-27 11:23:00 36.44 Eryn [facility] Respiratory rate 2022-11-27 11:23:00 18 /min [facility] Oxygen saturation in 2022-11-27 11:23:00 95 /min [facility] Arterial blood by Medical Ce nter Pulse oximetry Procedures Procedure Date / Time Performing Clinician Source Performed CBC W/PLT COUNT & AUTO 2022-11-27 05:08:00 Mihai Villalba [facility] [place] [facility] COMPREHENSIVE METABOLIC 2022-11-27 05:08[facility]O 2022-11-27 05:08:00 Mihai Villalba [facility] HEPATITIS B PCR, 2022-11-26 18:13:00 Landen Dupree [facility] HEPATITIS C PCR, 2022-11-26 10:31:00 Landen Dupree [facility] ALPHA FETOPROTEIN (AFP), 2022-11-26 10:31:00 Landen Dupree [facility] TUMOR MARKER [facility] HEPATITIS A ANTIBODY, IGG 2022-11-26 10:31:00 Landen Dupree I [facility] HEPATITIS B CORE 2022-11-26 10:31:00 [facility] T[facility] HEPATITIS B SURFACE 2022-11-26 10:31:00 [facility] HEPATITIS B SURFACE 2022-11-26 10:31:00 Leia, [facility] ANTIBODY [facility] IRON, TIBC, % SAT. 2022-11-26 10:31:00 Marleymarcelino [facility] (WITHOUT FERRITIN) [facility] FERRITIN 2022-11-26 10:31:00 Marleymarcelino [facility] IMMUNOGLOBULIN G (IGG) 2022-11-26 10:31:00 LeiaJianrickistar [facility] US ABDOMEN COMPLETE 2022-11-26 07:16:[facility] 2022-11-26 04:40[facility] 2022-11-26 04:33[facility] 2022-11-26 04:33:00 [facility] COMPREHENSIVE METABOLIC 2022-11-26 04:33:00 [facility] 2022-11-26 04:33:00 [facility] PROTHROMBIN TIME/INR 2022-11-25 23:54:00 [facility] 2022-04-07 05:01:00 Doctor Unassigned, [facility] REQUEST/RESPONSE [place] [facility] AUTHORIZATION FOR RELEASE 2019-02-18 05:01:00 Doctor Unassigned, [facility] [place] [facility] COMP. METABOLIC PANEL 2019-01-01 13:52:00 Al Aguilar [facility] ([id number]) Medical Branch LIPID PANEL ([id number])(TOTAL 2019-01-01 13:52:00 Al Aguilar [facility] CHOLESTEROL, Medical Branch TRIGLYCERIDES, HDL) CBC WITH DIFFERENTIAL 2019-01-01 13:52:00 GoranOnielsergey Dior Un [facility] Medical Branch ASSIGNMENT OF BENEFITS 2019-01-01 13:15:46 Doctor Unassigned, [facility] [place] [facility] [place] Plan of Care Planned Activity Planned Date Details Comments Source Future Scheduled 2026-04-25 DTAP/TDAP/TD VACCINES [facility] Test 00:00:00 (2 - Td or Tdap) [code Medic al Center = DTAP/TDAP/TD VACCINES (2 - Td or Tdap)] Future Scheduled 2023-02-[address] [facility] Test 00:00:00 (Season Ended) [code = Medic al Center Influenza Vaccine (Season Ended)] Future Scheduled 2022-06-[address] [facility] Test 00:00:00 (12+) [code = Medical Center DEPRESSION SCREENING (12+)] Future Scheduled 2017-10-06 Lipid panel (procedure) [facility] Test 00:00:00 [code = 67811509] Medical Ce nter Future Scheduled 2010 SHINGLES VACCINES ([address] [facility] Test 00:00:00 2) [code = SHINGLES [facility] Center VACCINES (1 of 2)] Future Scheduled 1981 Screening for malignant [facility] Test 00:00:00 neoplasm of cervix Medical C enter (procedure) [code = 934659511] Future Scheduled [address] [facility] Test 00:00:00 Counseling and Medical Cente r Screening (12+) [code = Tobacco Cessation Counseling and Screening (12+)] Future Scheduled 1960 COVID-19 VACCINE (#1) [facility] Test 00:00:00 [code = COVID-[address] VACCINE (#1)] Future Scheduled 1960 Screening for malignant [facility] Test 00:00:00 neoplasm of breast Medical C enter (procedure) [code = 668928702] Future Scheduled 1960 CT Colonography (combo) [facility] Test 00:00:00 [code = CT Colonography [facility] (combo)] Future Scheduled 1960 Screening for malignant [facility] Test 00:00:00 neoplasm of colon Medical Ce nter (procedure) [code = 910584181] Future Scheduled 1960 Screening for malignant [facility] Test 00:00:00 neoplasm of colon Medical Ce nter (procedure) [code = 005787883] Future Scheduled 1960 Screening for malignant [facility] Test 00:00:00 neoplasm of colon Medical Ce nter (procedure) [code = 125707550] Future Scheduled 1960 Screening for malignant [facility] Test 00:00:00 neoplasm of colon Medical Ce nter (procedure) [code = 255160830] Future Scheduled 1960 Sigmoidoscopy [code = [facility] Test 00:00:00 Sigmoidoscopy] Medical Cente r Encounters Start End Encounter Admission Attending Care Care Encounter Source Date/Time Date/Time Type Type Clinicians Facility Department ID 2022-11-25 2022-11-27 [id number] [facility] 19:36:00 13:31:00 [facility] 2022-11-25 2022-11-27 [facility] Lilian Javier [facility] [id number] [facility] 19:36:00 13:31:00 Encounter Mihai Villalbaf [facility] 2022-10-02 2022-10-02 Outpatient LEYDA CRABTREE [id number] [place] 09:05:54 09:05:54 [id number] F Errol 2022-09-05 2022-09-05 [place] [id number] Univers 14:00:00 14:00:00 [facility] 2022-07-24 2022-07-24 [place] [id number] Univers 13:15:00 13:15:00 [facility] 2022-06-26 2022-06-26 Outpatient [facility] [id number] [place] 10:10:22 10:10:22 [id number] F Errol 2022-04-07 2022-04-07 Orders Doctor PRUDENCIO 1.2.840.114 [id number] [facility] 00:00:00 00:00:00 Only Unassigned, TAYLOR 350.1.13.10 [place] [facility] 4.2.7.2.686 Juno as [phone] [address] 2022-03-26 2022-03-26 Outpatient [facility] [id number] [place] 10:47:27 10:47:27 [id number] Mj [place] 2019-02-18 2019-02-18 Orders Doctor PRUDENCIO [id number] [id number] [facility] 00:00:00 00:00:00 Only Unassigned, TAYLOR 350.1.13.10 [facility] [place] [facility] 4.2.7.2.686 Juno as [phone] [address] 2019-01-24 2019-01-24 Refill [place], [facility] 1.2.840.114 [id number] [facility] 00:00:00 00:00:00 [facility] 350.1.13.10 ity of [place] 4.2.7.2.686 Juno as Professio [phone] [address] Office Building One 2019-01-01 2019-01-01 Office Goran [facility] 1.2.840.114 [id number] [facility] 08:17:32 09:01:49 Visit [facility] 350.1.13.10 it[place] of [place] 4.2.7.2.686 Juno as Professio [phone] [address] Office Building One 2019-01-01 2019-01-01 Orders Doctor PRUDENCIO 1.2.840.114 [id number] [facility] 00:00:00 00:00:00 Only Unassigned, TAYLOR 350.1.13.10 [facility] [place] [facility] 4.2.7.2.686 Juno as [phone] [address] Results Test Description Test Time Test Comments Results Result Comments Source HEPATITIS B PCR, QUANTITATIVE 2022-11-27 13:42:33 Test Item Value Reference Range Interpretation Comme nts HBV RESULT COMPONENT (BEAKER) (test HBV DNA not detected HBV DNA no t detected code = 2701) HEPATITIS C PCR, [id number] 12:37:27 Test Item Value Reference Range Interpretation Comments HCV NUMERIC RESULT (BEAKER) [id number] IU/mL <15 H (test code = 2700) COMPREHENSIVE METABOLIC [id number] 06:24:26 Test Item Value Reference Range Interpretation Comments TOTAL PROTEIN 6.2 gm/dL 6.0-8.3 (BEAKER) (test code = 770) ALBUMIN (BEAKER) 2.8 g/dL 3.5-5.0 L (test code = 1145) ALKALINE 49 U/L 40-150 PHOSPHATASE (BEAKER) (test code = 346) BILIRUBIN TOTAL 0.8 mg/dL 0.2-1.2 (BEAKER) (test code = 377) SODIUM (BEAKER) 139 meq/L 136-145 (test code = 381) POTASSIUM (BEAKER) 3.9 meq/L 3.5-5.1 (test code = 379) CHLORIDE (BEAKER) 104 meq/L 98-107 (test code = 382) CO2 (BEAKER) (test 28 meq/L 22-29 code = 355) BLOOD UREA 13 mg/dL 7-21 NITROGEN (BEAKER) (test code = 354) CREATININE 0.74 mg/dL 0.57-1.25 (BEAKER) (test code = 358) GLUCOSE RANDOM 87 mg/dL 70-105 (BEAKER) (test code = 652) CALCIUM (BEAKER) 8.1 mg/dL 8.4-10.2 L (test code = 697) AST (SGOT) 34 U/L 5-34 (BEAKER) (test code = 353) ALT (SGPT) 19 U/L 6-55 (BEAKER) (test code = 347) EGFR (BEAKER) 91 Interpretatio n of eGFR (test code = 1092) mL/min/1.[address] age Description sq m Result G1 Velia l or high >=90 G2 Mildly decreased 60-89 G3a Mildl y to moderately 45-5 9 G3b Moderately to s everely 30-44 G4 Severl y decreased 15-29 G5 Kidney failure <15Reported eGF R is based on the CKD-EPI 2021 equation that d oes not use a race coefficientEsti mated GFR is not as accur ate as Creatinine Mabel castillo in predicting glom erular filtration rate . Estimated GFR is not appl icable for dialysis patien ts Channel Cementer ID - TEJA WCBC W/PLT COUNT & AUTO [id number] 05:34:25 Test Item Value Reference Range Interpretation Comments WHITE BLOOD CELL COUNT (BEAKER) 5.3 K/ L 3.5-10.5 (test code = 775) RED BLOOD CELL COUNT (BEAKER) 3.39 M/ L 3.93-5.22 L (test code = 761) HEMOGLOBIN (BEAKER) (test code = 10.9 GM/DL 11.2-15.7 L 410) HEMATOCRIT (BEAKER) (test code = 33.6 % 34.1-44.9 L 411) MEAN CORPUSCULAR VOLUME (BEAKER) 99 fL 79-95 H (test code = 753) MEAN CORPUSCULAR HEMOGLOBIN 32.2 pg 25.6-32.2 (BEAKER) (test code = 751) MEAN CORPUSCULAR HEMOGLOBIN CONC 32.4 GM/DL 32.2-35.5 (BEAKER) (test code = 752) RED CELL DISTRIBUTION WIDTH 17.7 % 11.7-14.4 H (BEAKER) (test code = 412) PLATELET COUNT (BEAKER) (test 143 K/CU MM 150-450 L code = 756) MEAN PLATELET VOLUME (BEAKER) 10.1 fL 9.4-12.3 (test code = 754) NUCLEATED RED BLOOD CELLS 0 /100 WBC 0-0 (BEAKER) (test code = 413) NEUTROPHILS RELATIVE PERCENT 73 % (BEAKER) (test code = 429) LYMPHOCYTES RELATIVE PERCENT 18 % (BEAKER) (test code = 430) MONOCYTES RELATIVE PERCENT 6 % (BEAKER) (test code = 431) EOSINOPHILS RELATIVE PERCENT 3 % (BEAKER) (test code = 432) BASOPHILS RELATIVE PERCENT 1 % (BEAKER) (test code = 437) NEUTROPHILS ABSOLUTE COUNT 3.85 K/ L 1.56-6.13 (BEAKER) (test code = 670) LYMPHOCYTES ABSOLUTE COUNT 0.96 K/ L 1.18-3.74 L (BEAKER) (test code = 414) MONOCYTES ABSOLUTE COUNT (BEAKER) 0.29 K/ L 0.24-0.36 (test code = 415) EOSINOPHILS ABSOLUTE COUNT 0.14 K/ L 0.04-0.36 (BEAKER) (test code = 416) BASOPHILS ABSOLUTE COUNT (BEAKER) 0.04 K/ L 0.01-0.08 (test code = 417) IMMATURE GRANULOCYTES-RELATIVE 0.20 % 0.00-1.00 PERCENT (BEAKER) (test code = 2801) HEPATITIS B CORE ANTIBODY, [id number] 16:13:44 Test Item Value Reference Range Interpretation Comments HEPATITIS B CORE TOTAL ANTIBODY Reactive Nonreactive A (BEAKER) (test code = 497) Channel Cementer ID - ADMINOperator ID - ADMINOperator ID - ADMINHEPATITIS A ANTIBODY, [id number] 14:44:39 Test Item Value Reference Range Interpretation Comments HEPATITIS A IGG ANTIBODY (BEAKER) Nonreactive Nonreactive (test code = 2797) Channel Cementer ID - ADMINHEPATITIS B SURFACE [id number] 14:44:38 Test Item Value Reference Range Interpretation Comments HEPATITIS B SURFACE ANTIBODY 592.8 mIU/mL <8.0 H (BEAKER) (test code = 647) Channel Cementer ID - ADMINALPHA FETOPROTEIN (AFP), TUMOR [id number] 14:44:38 Test Item Value Reference Range Interpretation Comments ALPHA-FETOPROTEIN (BEAKER) (test 3.8 ng/mL <10.0 code = 1094) Channel Cementer ID - ADMINHEPATITIS B SURFACE [id number] 14:44:37 Test Item Value Reference Range Interpretation Comments HEPATITIS B SURFACE ANTIGEN (2) Nonreactive Nonreactive (BEAKER) (test code = 2585) Specimen is considered negative for HBsAg.IRON, TIBC, % SAT. (WITHOUT FERRITIN) 2022-11-26 12:39:59 Test Item Value Reference Range Interpretation Comments IRON (BEAKER) (test code = 547) 56.0 ug/dL 40.0-160.0 TOTAL IRON BINDING CAPACITY 259 ug/dL 250-450 (BEAKER) (test code = 769) IRON % SATURATION (2) (BEAKER) 22 % 20-55 (test code = 2590) Channel Cementer ID - ADMINIMMUNOGLOBULIN G (IGG)2022-11-26 12:39:58 Test Item Value Reference Range Interpretation Comments IMMUNOGLOBULIN G (IGG) (BEAKER) 1975 mg/dL 540-1822 H (test code = 427) Channel Cementer ID - [id number] 12:06:28 Test Item Value Reference Range Interpretation Comments FERRITIN (BEAKER) (test code = 142.93 ng/mL 5.00-275.00 361) Channel Cementer ID - lmUS ABDOMEN [id number] 09:43:15 [facility] : 1960 Sex: FAbdominal ultrasoundClinical History: CirrhosisComparison: MRI from 07/01/2012Findings:Sonographic evaluation of the the abdomen is performed.The visualized pancreas appears unremarkable.The liver is normal in size measuring 17.4 cm in length and demonstratesa coarsened heterogeneous echotexture which ca n be seen in setting ofhepatic dysfunction/cirrhosis. No focal hepatic abnormality isidentified. Themain portal vein is patent with antegrade flow anddiameter of 1.2 cm, within normal limits.The gallbladder is unremarkable. There is no evidence forcholelithiasis, wall thickening, or pericholecystic fl uid. There is nointra or extrahepatic biliary ductal dilatation. The common bile ductmeasures 3 mm. Sonographic Dodge's sign is negative.The spleen is at the upper limits of normal for size measuring 13.4 cmin length and contains subcentimeter granulomatous calcifications. The kidneys are normal in size measuring 11.1 x 4.9 x 4.8 cm on theright and 11.4 x 5.7 x 5.6 cm on the left. Corticalthickness/echogenicity is within normal limits. There is a subcentimeter(0.6 x 0.9 x 0.7 cm) echogenic focus identified within the superior polethe right kidney. Otherwise, there is no evidence for solid renal mas s,hydronephrosis, or shadowing calculi.The visualized portions of the IVC and aorta are within normal limits.There is no ascites present.IMPRESSION:Impression:Sonographic findings suggestive of cirrhosis. 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 Electronically Signed By: Ion Douglas MD11/26/2022 09:45 CDTWorkstationName: [id number] COMPREHENSIVE METABOLIC [id number] 09:34:36 Test Item Value Reference Range Interpretation Comments TOTAL PROTEIN 6.7 gm/dL 6.0-8.3 (BEAKER) (test code = 770) ALBUMIN (BEAKER) 3.0 g/dL 3.5-5.0 L (test code = 1145) ALKALINE 53 U/L 40-150 PHOSPHATASE (BEAKER) (test code = 346) BILIRUBIN TOTAL 1.1 mg/dL 0.2-1.2 (BEAKER) (test code = 377) SODIUM (BEAKER) 139 meq/L 136-145 (test code = 381) POTASSIUM (BEAKER) 3.2 meq/L 3.5-5.1 L (test code = 379) CHLORIDE (BEAKER) 104 meq/L 98-107 (test code = 382) CO2 (BEAKER) (test 27 meq/L 22-29 code = 355) BLOOD UREA 14 mg/dL 7-21 NITROGEN (BEAKER) (test code = 354) CREATININE 0.78 mg/dL 0.57-1.25 (BEAKER) (test code = 358) GLUCOSE RANDOM 179 mg/dL 70-105 H (BEAKER) (test code = 652) CALCIUM (BEAKER) 8.3 mg/dL 8.4-10.2 L (test code = 697) AST (SGOT) 32 U/L 5-34 (BEAKER) (test code = 353) ALT (SGPT) 15 U/L 6-55 (BEAKER) (test code = 347) EGFR (BEAKER) 86 Interpretatio n of eGFR (test code = 1092) mL/min/1.[address] age Description sq m Result G1 Velia l or high >=90 G2 Mildly decreased 60-89 G3a Mildl y to moderately 45-5 9 G3b Moderately to s everely 30-44 G4 Severl y decreased 15-29 G5 Kidney failure <15Reported eGF R is based on the CKD-EPI 2020 equation that d oes not use a race coefficientEsti mated GFR is not as accur ate as Creatinine Mabel castillo in predicting glom erular filtration rate . Estimated GFR is not appl icable for dialysis patien ts Channel Cementer ID - [id number] 09:34:36 Test Item Value Reference Range Interpretation Comments MAGNESIUM (BEAKER) (test code = 1.9 mg/dL 1.6-2.6 627) Channel Cementer ID - ADMINCBC (HEMOGRAM ONLY)2022-11-26 05:01:00 Test Item Value Reference Range Interpretation Comments WHITE BLOOD CELL COUNT (BEAKER) 3.2 K/ L 3.5-10.5 L (test code = 775) RED BLOOD CELL COUNT (BEAKER) 3.65 M/ L 3.93-5.22 L (test code = 761) HEMOGLOBIN (BEAKER) (test code = 11.5 GM/DL 11.2-15.7 410) HEMATOCRIT (BEAKER) (test code = 35.3 % 34.1-44.9 411) MEAN CORPUSCULAR VOLUME (BEAKER) 97 fL 79-95 H (test code = 753) MEAN CORPUSCULAR HEMOGLOBIN 31.5 pg 25.6-32.2 (BEAKER) (test code = 751) MEAN CORPUSCULAR HEMOGLOBIN CONC 32.6 GM/DL 32.2-35.5 (BEAKER) (test code = 752) RED CELL DISTRIBUTION WIDTH 17.1 % 11.7-14.4 H (BEAKER) (test code = 412) PLATELET COUNT (BEAKER) (test 130 K/CU MM 150-450 L code = 756) MEAN PLATELET VOLUME (BEAKER) 10.4 fL 9.4-12.3 (test code = 754) NUCLEATED RED BLOOD CELLS 0 /100 WBC 0-0 (BEAKER) (test code = 413) PROTHROMBIN [id number] 00:24:41 Test Item Value Reference Range Interpretation Comments PROTIME (BEAKER) (test code = 15.5 seconds 11.9-14.2 H 759) INR (BEAKER) (test code = 370) 1.31 <=5.90 RECOMMENDED COUMADIN/WARFARIN INR THERAPY RANGESSTANDARD DOSE: 2.0 - 3.0 Includes: PROPHYLAXIS for venous thrombosis, systemic embolization; TREATMENT for venous thrombosis and/or pulmonary embolus.HIGH RISK: Target INR is 2.5-3.5 for patients with mechanical heart valves.TSH, THIRD [id number] 04:53:46 Test Item Value Reference Range Interpretation Comments TSH, THIRD 89.300 UIU/ML 0.400-4.100 H UNLESS OTHERW ISE GENERATION (test INDICATED, ALL code = 2821) TESTING PERFORM ED [facility], [place] [address] [facility] [address] [facility] DIRECTOR: Ethan HARTMANIA NUMBER [id number] [facility] ACCREDITATION N O. [id number] CBC W/AUTO DIFF WITH [id number] 04:43:48 Test Item Value Reference Range Interpretation [...] RBCS 0.00 K/UL 0.00-0.11 (test code = 21996) LIPID [id number] 03:18:10 Test Item Value Reference Range Interpretation [...] MOREINFORMATION , SEE CLIENT ANNOUNCE MENT AT [email or web address] RATIO LDL/HDL 1.78 RATIO <3.22 (test code = 2238) COMPREHENSIVE METABOLIC [id number] 03:18:10 Test Item Value Reference Range Interpretation Comments GLUCOSE (test code = 98 MG/DL 70-99 2216) BUN (test code = 12 MG/DL 8-23 2207) CREATININE (test 0.81 MG/DL 0.60-1.30 code = 2214) eGFR (2020 CKD-EPI) 83 ML/MIN/1.73 >60 (test code = 67883) CALC BUN/CREAT (test 15 RATIO 6-28 code = 2235) SODIUM (test code = 141 MEQ/L 179-981 1106) POTASSIUM (test code 4.3 MEQ/L 3.5-5.4 = [...] U/L 5-40 H 2218) COMP. METABOLIC PANEL (23270)2019-01-01 16:13:00 Test Item Value Reference Range Interpretation Comments NA (test code = 142 mmol/L 135-145 8418037965) K (test code = 5.6 mmol/L 3.5-5 H 4168658828) CL (test code = 106 mmol/L 98-108 0138259033) CO2 TOTAL (test code = 28 mmol/L 23-31 6914406011) AGAP (test code = 2-16 5922599629) BUN (test code = 6 mg/dL 7-23 L 5130485575) GLUCOSE (test code = 105 mg/dL 70-110 3617803373) CREATININE (test code = 0.79 mg/dL 0.5-1.04 5118329435) TOTAL BILI (test code = 1.3 mg/dL 0.1-1.1 H 9670497559) CALCIUM (test code = 9.1 mg/dL 8.6-10.6 0371872627) T PROTEIN (test code = 8.7 g/dL 6.3-8.2 H 2400670923) ALBUMIN (test code = 4.0 g/dL 3.5-5 6018941243) ALK PHOS (test code = 72 U/L 34-122 2047777907) ALT(SGPT) (test code = 58 U/L 9-51 H 9427798675) AST(SGOT) (test code = 87 U/L 13-40 H 6074596158) eGFR Calculation mL/min/1.73m2 (Non-) (test code = 1026886260) eGFR Calculation mL/min/1.73m2 () (test code = 6219404608) ROMY (test code = ROYM) Association of Glomerular Filtration Rate (GFR) and [...] tests). Lab Interpretation Abnormal (test code = 55693-1) [facility] ([facility])(TOTAL CHOLESTEROL, TRIGLYCERIDES, HDL)2019-01-01 16:13:00 Test Item Value Reference Range Interpretation Comments CHOL (test code = 160 mg/dL 120-200 0528426156) HDL (test code = 61 mg/dL >50 0942577227) HDLC RATIO (test code = See_Comment [Au tomated message] 7721628935) The system [employer] generated this result transmit amelie reference range : <=4.5. The refe rence range was not u sed to interpret th is result as normal/abnormal . TRIG (test code = 73 mg/dL 30-170 2545983356) LDL CHOL (test code = 84 mg/dL See_Comment [Auto mated message] 33578-9) The system [employer] generated this result transmit amelie reference range : <=160. The refe rence range was not u sed to interpret th is result as normal/abnormal . VLDL (test code = 15 mg/dL 5-60 7953388361) Lab Interpretation (test Normal code = 40247-7) [facility]"
--- NOTE | 2022-11-28 18:04 | RAD REPORT ---
EXAM DESCRIPTION: RAD - Chest Single View - 11/28/2022 5:51 pm CLINICAL HISTORY: near syncope Chest pain. COMPARISON: Chest Single View dated 11/25/2022; Chest Single View dated 11/24/2022; Chest Single View dated 11/21/2022; Chest Single View dated 11/13/2022 FINDINGS: Portable technique limits examination quality. The lungs are grossly clear. The heart is normal in size. No displaced fractures. IMPRESSION: No acute intrathoracic process suspected.
[2022-11-28] MEDS ORDERED: MORPHINE 4 MG/ML SYR ONE (18:13)
[2022-11-28 18:24] LABS: Absolute Lymphocytes (CBC) 0.8 K/uL (0.7-4.9); Hematocrit 35.3 % (36.0-45.0); Lymphocytes % 19.5 % (15.3-44.8); MCV 96.4 fL (80-100); MPV 7.9 fL (7.6-11.3); RBC Red Blood Cell Count 3.66 M/uL (3.86-4.86)
[2022-11-28 18:28] LABS: Protime INR 1.03
[2022-11-28 18:37] LABS: Specific Gravity 1.012 (1.005-1.030); Urine Bacteria None Seen /HPF (<20); Urine Bilirubin NEGATIVE (Negative); Urine Blood Negative (Negative); Urine Clarity Clear (Clear); Urine Color Yellow (Yellow); Urine Glucose NEGATIVE (Negative); Urine Protein NEGATIVE (Negative); Urine RBC <5 /HPF (None Seen); Urine Urobilinogen 1+ (Normal); Urine pH 6.5 (5.0-7.0)
--- NOTE | 2022-11-28 18:38 | RAD REPORT ---
EXAM DESCRIPTION: CT - Head Brain Wo Cont - 11/28/2022 6:31 pm CLINICAL HISTORY: ams Headache, drowsiness COMPARISON: <Comparisons> TECHNIQUE: All CT scans are performed using dose optimization technique as appropriate and may inclu de automated exposure control or mA/KV adjustment according to patient size. FINDINGS: No intracranial hemorrhage, hydrocephalus or extra-axial fluid collection.Mild generalized brain atrophy is present with mild periventricular and deep white matter chronic microvascular ische dea changes.No areas of brain edema or evidence of midline shift. The paranasal sinuses and mastoids are clear. The calvarium is intact. IMPRESSION: No acute intracranial abnormality.
[2022-11-28 18:43] LABS: Barbiturates NEGATIVE (NEGATIVE); Benzodiazepines POSITIVE (NEGATIVE); Cocaine POSITIVE (NEGATIVE); METHAMPHETAM NEGATIVE (NEGATIVE); Methadone NEGATIVE (NEGATIVE); Opiates NEGATIVE (NEGATIVE); Phencyclidine NEGATIVE (NEGATIVE); THC Cannibis NEGATIVE (NEGATIVE)
[2022-11-28 19:13] LABS: ALT/SGPT 29 U/L (13-56); AST/SGOT 37 U/L (15-37); Albumin 2.9 g/dL (3.4-5.0); Alkaline Phosphatase 76 U/L (45-117); BUN Blood Urea Nitrogen 14 mg/dL (7-18); Bicarbonate 32 mEq/L (21-32); Bilirubin Direct 0.5 mg/dL (0-0.2); Bilirubin Indirect, Calculated 0.5 mg/dL (0.2-0.8); Glomerular Filtration Rate 82 ml/min (=/>90); Glucose Level 103 mg/dL (74-106); Magnesium 2.1 mg/dL (1.6-2.4); Potassium 3.3 mEq/L (3.5-5.1); Sodium Level 140 mEq/L (136-145); Troponin High Sensitivity 7.5 pg/mL (<58.9)
--- NOTE | 2022-11-28 20:15 | EDPHYS ---
Physician Documentation [facility] Name: Maisha Leo Age: 62 yrs Sex: Female : 1960 Arrival Date: 11/28/2022 Time: 17:12 Bed 7 Private MD: ED Physician Reggie Harris HPI: 11/28 21:44 This 62 yrs old Female presents to ER via EMS with complaints of Back Pain, Leg Pain. rt 21:44 Patient with history of alcoholic cirrhosis with multiple falls presents to the ED with rt a recurrent fall. Patient reports her chronic back pain. Patient does have slurred speech, however, this is reported to be at her baseline. Denies other acute complaints at this time, she denies hitting her head at this time. Denies other acute complaints, symptoms are moderate in severity, no other aggravating or alleviating factors.. Historical: - Allergies: 17:24 PENICILLINS; ph - Home Meds: 17:24 alprazolam 0.5 mg Oral tablet 3 times per day [Active]; amitriptyline 50 mg Oral tablet ph every day at bedtime [Active]; amlodipine 10 mg tablet daily [Active]; atorvastatin 40 mg Oral tablet daily [Active]; gabapentin 600 mg Oral tablet 1 tab 3 times per day [Active]; Keppra 500 mg Oral tablet 2 times per day [Active]; lamotrigine 25 mg (84) -100 mg (14) Oral tablet [Active]; levothyroxine 100 mcg tablet daily [Active]; midodrine 5 mg Oral tablet 3 times per day [Active]; trazodone 100 mg Oral tablet [Active]; - PMHx: 17:24 ADD/ADHD; Bipolar disorder; Cerebrovascular accident; Cirrhosis; COPD; CVA; Left sided ph weakness; Fibromyalgia; Hypertension; Hypothyroidism; Myocardial infarction; Seizures; - PSHx: 17:24 right big toe; ph - Immunization history:: Adult Immunizations unknown. - Social history:: Smoking status: unknown. - Family history:: not pertinent, pertinent for. ROS: 21:44 Constitutional: Negative for fever, chills, and weight loss, Cardiovascular: Negative rt for chest pain, palpitations, and edema, Respiratory: Negative for shortness of breath, cough, wheezing, and pleuritic chest pain, Abdomen/GI: Negative for abdominal pain, nausea, vomiting, diarrhea, and constipation, MS/Extremity: Negative for injury and deformity, Skin: Negative for injury, rash, and discoloration, Neuro: Negative for headache, weakness, numbness, tingling, and seizure, Psych: Negative for depression, anxiety, suicide ideation, homicidal ideation, and hallucinations. 21:44 Back: Positive for pain at rest, Negative for radiated pain, acute changes. Exam: 21:44 Constitutional: This is a well developed, well nourished patient who is awake, alert, rt and in no acute distress. Head/Face: Normocephalic, atraumatic. Neck: Trachea midline, no thyromegaly or masses palpated, and no cervical lymphadenopathy. Supple, full range of motion without nuchal rigidity, or vertebral point tenderness. No Meningismus. Chest/axilla: Normal chest wall appearance and motion. Nontender with no deformity. No lesions are appreciated. Cardiovascular: Regular rate and rhythm with a normal S1 and S2. No gallops, murmurs, or rubs. Normal PMI, no JVD. No pulse deficits. Respiratory: Lungs have equal breath sounds bilaterally, clear to auscultation and percussion. No rales, rhonchi or wheezes noted. No increased work of breathing, no retractions or nasal flaring. Abdomen/GI: Soft, non-tender, with normal bowel sounds. No distension or tympany. No guarding or rebound. No evidence of tenderness throughout. Skin: Warm, dry with normal turgor. Normal color with no rashes, no lesions, and no evidence of cellulitis. MS/ Extremity: Pulses equal, no cyanosis. Neurovascular intact. Full, normal range of motion. Psych: Awake, alert, with orientation to person, place and time. Behavior, mood, and affect are within normal limits. 21:44 ECG was reviewed by the Attending Physician. 21:44 Neuro: Slurred speech, reportedly at baseline, strength and sensation intact in upper and lower extremities.. Vital Signs: 17:16 BP 118 / 76; Pulse 98; Resp 18; Temp 98.9; Pulse Ox 100% on R/A; Weight 72.57 kg; ph Height 5 ft. 5 in. ; 18:42 BP 109 / 87; Pulse 92; Resp 18; Pulse Ox 99% on R/A; ld1 20:46 BP 108 / 74; Pulse 85; Resp 18; Temp 97(TE); Pulse Ox 99% on R/A; kl 17:16 Body Mass Index 26.63 (72.57 kg, 165.1 cm) ph MDM: 17:28 Patient medically screened. rt 21:44 Differential diagnosis: Fall, elevated PT INR, intracranial hemorrhage, electrolyte rt disturbance. Data reviewed: vital signs, nurses notes, lab test result(s), EKG, radiologic studies. Consideration of Admission/Observation Escalation of care including admission/observation considered. Patient has no signs or symptoms that are concerning for an acute CVA. Negative CT scan, improving labs compared to baseline. Patient has had multiple admissions for falls over the past week, do not believe the patient is likely to benefit from repeat admission to the hospital. Discussed this at length with the patient. She is stable for outpatient care, return precautions discussed.. I considered the following discharge prescriptions or medication management in the emergency department Medications were administered in the Emergency Department. See MAR. Independent interpretation of the following test(s) in the Emergency Department CT Scan: My interpretation is No hemorrhage seen on interpretation of CT scan images. Test considered but Not performed: MRI: Low suspicion for acute CVA, MRI not indicated. Counseling: I had a detailed discussion with the patient and/or guardian regarding: the historical points, exam findings, and any diagnostic results supporting the discharge/admit diagnosis, lab results, radiology results, the need for outpatient follow up. 11/28 17:35 Order name: Acetaminophen; Complete Time: 19:41 rt 11/28 17:35 Order name: Basic Metabolic Panel; Complete Time: 19:41 rt 11/28 17:35 Order name: CBC with Diff; Complete Time: 18:34 rt 11/28 17:35 Order name: ETOH Level; Complete Time: 18:34 rt 11/28 17:35 Order name: Hepatic Function; Complete Time: 19:41 rt 11/28 17:35 Order name: PT-INR; Complete Time: 18:34 rt 11/28 17:35 Order name: Ptt, Activated; Complete Time: 18:34 rt 11/28 17:35 Order name: Salicylate; Complete Time: 19:41 rt 11/28 17:35 Order name: Urinalysis w/ reflexes; Complete Time: 18:43 rt 11/28 17:35 Order name: Urine Drug Screen; Complete Time: 19:41 rt 11/28 17:35 Order name: TSH; Complete Time: 19:41 rt 11/28 17:35 Order name: Magnesium; Complete Time: 19:41 rt 11/28 17:35 Order name: Troponin High Sensitivity; Complete Time: 19:41 rt 11/28 19:17 Order name: T4 Free; Complete Time: 19:41 EDMS 11/28 17:35 Order name: CT Head Brain wo Cont; Complete Time: 18:43 rt 11/28 17:35 Order name: Chest Single View XRAY; Complete Time: 18:34 rt 11/28 17:35 Order name: EKG; Complete Time: 17:36 rt 11/28 17:35 Order name: EKG - Nurse/Tech; Complete Time: 18:16 rt 11/28 17:35 Order name: IV Saline Lock; Complete Time: 18:16 rt 11/28 17:35 Order name: Labs collected and sent; Complete Time: 18:16 rt 11/28 17:35 Order name: Suicide Screening ([place]); Complete Time: 18:02 rt EC:44 Rate is 94 beats/min. Rhythm is regular, Normal Sinus Rhythm with Occasional PVCs. QRS rt [place] is Normal. [place] interval is normal. QRS interval is normal. QT interval is normal. No Q waves. T waves are Normal. No ST changes noted. Interpreted by me. Administered Medications: 18:16 Drug: morphine IVP or IV 4 mg Route: IVP; Infused Over: 4 mins; Site: right antecubital;ld1 Disposition Summary: 11/28/22 20:14 Discharge Ordered Location: Home rt Problem: an ongoing problem rt Symptoms: have improved rt Condition: Stable rt Diagnosis - Repeated falls rt Followup: rt - With: Private Physician - When: 2 - 3 days - Reason: Discharge Instructions: - Discharge Summary Sheet rt - Fall Prevention in the Home, Adult rt Forms: - Medication Reconciliation Form rt - Thank You Letter rt - Antibiotic Education rt - Prescription Opioid Use rt Signatures: Dispatcher [employer] Adilia Freed RN RN Michelle Rudolph RN RN ld1 Reggie Harris MD MD rt
--- NOTE | 2022-11-28 20:15 | ER ---
Nurse's Notes [facility] Name: Maisha Leo Age: 62 yrs Sex: Female : 1960 Arrival Date: 11/28/2022 Time: 17:12 Bed 7 Private MD: Diagnosis: Repeated falls Presentation: 11/28 17:16 Chief complaint: EMS states: Pt called EMS for leg and back pain, hx of frequent falls, ph states that she fell yesterday and again today after feeling dizzy, bruising and swelling to R eye, multiple bruises to arms and legs, pt is currently homeless, was [facility] from [facility] in [place], pt w/ slurred speech at baseline, states that she took 1 xanax this morning. Coronavirus screen: Vaccine status: Patient reports being unvaccinated. Ebola Screen: No symptoms or risks identified at this time. Initial Sepsis Screen: Does the patient meet any 2 criteria? No. Patient's initial sepsis screen is negative. Does the patient have a suspected source of infection? No. Patient's initial sepsis screen is negative. Risk Assessment: Do you want to hurt yourself or someone else? Patient reports no desire to harm self or others. Onset of symptoms was November 28, 2022. 17:16 Method Of Arrival: EMS: [facility] 17:16 Acuity: ARTURO 3 ph Triage Assessment: 17:27 General: Appears in no apparent distress. uncomfortable, unkempt, Behavior is calm, ph cooperative, crying, drowsy. Pain: Complains of pain in back, right leg and left leg. Neuro: Level of Consciousness is awake, obeys commands, lethargic, Oriented to person, place, time, situation. Cardiovascular: Capillary refill < 3 seconds in bilateral fingers Patient's skin is warm and dry. Respiratory: Airway is patent Respiratory effort is even, unlabored. GI: No signs and/or symptoms were reported involving the gastrointestinal system. Derm: Skin is normal, Wound noted right ankle. Derm: Bruising that is dark purple, on right eye. Derm: Bruising that is dark purple, on right hand. Musculoskeletal: Circulation, motion, and sensation intact. Range of motion: intact in all extremities, Swelling present in right eye. Historical: - Allergies: 17:24 PENICILLINS; ph - Home Meds: 17:24 alprazolam 0.5 mg Oral tablet 3 times per day [Active]; amitriptyline 50 mg Oral tablet ph every day at bedtime [Active]; amlodipine 10 mg tablet daily [Active]; atorvastatin 40 mg Oral tablet daily [Active]; gabapentin 600 mg Oral tablet 1 tab 3 times per day [Active]; Keppra 500 mg Oral tablet 2 times per day [Active]; lamotrigine 25 mg (84) -100 mg (14) Oral tablet [Active]; levothyroxine 100 mcg tablet daily [Active]; midodrine 5 mg Oral tablet 3 times per day [Active]; trazodone 100 mg Oral tablet [Active]; - PMHx: 17:24 ADD/ADHD; Bipolar disorder; Cerebrovascular accident; Cirrhosis; COPD; CVA; Left sided ph weakness; Fibromyalgia; Hypertension; Hypothyroidism; Myocardial infarction; Seizures; - PSHx: 17:24 right big toe; ph - Immunization history:: Adult Immunizations unknown. - Social history:: Smoking status: unknown. - Family history:: not pertinent, pertinent for. Screenin:27 [facility] ED Fall Risk Assessment (Adult) History of falling in the last 3 months, ph including since admission Yes- fall prone (multiple falls) (3 pts) Confusion or Disorientation No (0 pts) Intoxicated or Sedated No (0 pts) Impaired Gait Yes (1 pt) Mobility Assist Device Used Yes (1 pt) Altered Elimination No (0 pt) Score/Fall Risk Level 3 or more points = High Risk Oriented to surroundings, Maintained a safe environment, Hourly rounding (assess needs \T\ fall precautionary measures) done. Abuse screen: Denies threats or abuse. Denies injuries from another. 17:29 Nutritional screening: No deficits noted. Tuberculosis screening: No symptoms or risk ph factors identified. Assessment: 17:29 General: SEE TRIAGE NOTE. ph 18:42 Reassessment: Patient appears in no apparent distress at this time. No changes from ld1 previously documented assessment. Patient and/or family updated on plan of care and expected duration. Pain level reassessed. Patient is alert, oriented x 3, equal unlabored respirations, skin warm/dry/pink. 20:46 Reassessment: Patient appears in no apparent distress at this time. Patient and/or kl family updated on plan of care and expected duration. Pain level reassessed. Patient is alert, oriented x 3, equal unlabored respirations, skin warm/dry/pink. Patient denies pain at this time. Patient states feeling better. Vital Signs: 17:16 BP 118 / 76; Pulse 98; Resp 18; Temp 98.9; Pulse Ox 100% on R/A; Weight 72.57 kg; ph Height 5 ft. 5 in. ; 18:42 BP 109 / 87; Pulse 92; Resp 18; Pulse Ox 99% on R/A; ld1 20:46 BP 108 / 74; Pulse 85; Resp 18; Temp 97(TE); Pulse Ox 99% on R/A; kl 17:16 Body Mass Index 26.63 (72.57 kg, 165.1 cm) ph ED Course: 17:16 Patient arrived in ED. ph 17:20 Reggie Harris MD is Attending Physician. rt 17:22 Triage completed. ph 17:24 Adilia Corona, RN is Primary Nurse. ph 17:27 Arm band placed on Patient placed in an exam room, on a stretcher. ph 17:29 Patient has correct armband on for positive identification. ph 17:53 Chest Single View XRAY In Process Unspecified. EDMS 18:16 Urinalysis w/ reflexes Sent. ld1 18:16 Urine Drug Screen Sent. ld1 18:16 Inserted saline lock: 20 gauge in right antecubital area, using aseptic technique. ld1 Blood collected. 18:33 CT Head Brain wo Cont In Process Unspecified. EDMS 18:42 compliance monitor on. Pulse ox on. NIBP on. Door closed. Noise minimized. Warm blanket ld1 given. Assisted to bedside commode. Repositioned patient. Cleaned of incontinence. Linen changed. 19:26 Primary Nurse role handed off by Adilia Corona, RN rv1 20:47 No provider procedures requiring assistance completed. IV discontinued, intact, kl bleeding controlled, No redness/swelling at site. Pressure dressing applied. Administered Medications: 18:16 Drug: morphine IVP or IV 4 mg Route: IVP; Infused Over: 4 mins; Site: right antecubital;ld1 Medication: 17:27 VIS not applicable for this client. ph Outcome: 20:14 Discharge ordered by MD. rt 20:46 Discharged to home via ambulance. kl 20:46 Condition: improved 20:46 Discharge instructions given to patient, Instructed on discharge instructions, follow up and referral plans. Demonstrated understanding of instructions, follow-up care. 21:27 Patient left the ED. xander Signatures: Dispatcher [employer] Isabella Fuentes RN RN kl Hall, Patricia, RN RN Michelle Rudolph RN RN ld1 Reggie Harris MD MD rt Villegas, Rebecca 1
[2022-11-28 21:34] VITALS: O2SAT 99
[2022-11-28 21:37] VITALS: BP 108/74; TEMP 97
[2022-11-28] MEDS ORDERED: NA CHLORIDE 0.9% 500 ML ONE (23:01)
[2022-11-28] MEDS ORDERED: Levofloxacin 750mg IV 750 MG/150 ML BAG IV ONE (23:02)
--- NOTE | 2022-11-29 16:30 | EKG ---
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
== END 2022-11-28 21:27 | disposition home or self-care (01) ==
LOC: ER 17:12
DX: M54.9 Dorsalgia, unspecified (principal); R29.6 Repeated falls; I10 Essential (primary) hypertension; K70.30 Alcoholic cirrhosis of liver without ascites; J44.9 Chronic obstructive pulmonary disease, unspecified; E03.9 Hypothyroidism, unspecified; Z88.0 Allergy status to penicillin; Z86.73 Personal history of transient ischemic attack (TIA), and cerebral infarction without residual deficits
CPT/HCPCS: 93005; 85025; 81001; 80048; 36415; 83735; 85610; 80076; 85730; 84443; 84484; 84439; 80307; 70450; 71045; 96374; 99285; 80143; 80179; 82077; J7040

== ENCOUNTER 2023-01-05 14:27 | Emergency (ER) | payer OTHER ==
--- OUTSIDE RECORDS SUMMARY | 2023-01-05 14:33 | XMS REPORT | Continuity of Care Document ---
:1960 Author Organization [facility] t Address [address] [place] [address] Care Team Providers Name Role Phone Dr. Magda Primary Care Physician MAILE FORREST Attending Clinician Unavailable LILIAN JAVIER Attending Clinician Unavailable Lilian Javier MD Attending Clinician Mihai Villalba MD Attending Clinician Jeffery Irizarry MD Attending Clinician JEFFERY IRIZARRY Attending Clinician Unavailable TAVO VIZCAINO Attending Clinician Unavailable Doctor Unassigned, [place] Attending Clinician Unavailable Al Zimmer MD Attending Clinician LILIAN JAVIER Admitting Clinician Unavailable JEFFERY IRIZARRY Admitting Clinician Unavailable Payers Payer Name Policy Type Policy Number Effective Date Expiration Date Danielle koch [facility] STAR [id number] 2021 00:00:00 [facility] STAR [id number] 2016 00:00:00 PLUS Problems Condition Condition Condition Status Onset Resolution Last Treating Co mments Source Name Details Category Date Date Treatment Clinician Date Alcoholic Alcoholic Disease Recurre [facility] cirrhosis, cirrhosis, nce 6- Rain kes unspecifie unspecifie 00:00: Me dical d whether d whether 00 Cent er ascites ascites present present Cirrhosis Cirrhosis Disease [facility]re [facility] 00 Center Essential Essential Disease Active Uni vers hypertensi hypertensi 7-26 it y of on on 00:00: [place] 00 Medical Branch Obesity Obesity Disease Active Univers (BMI (BMI 5-25 ity of 30-39.9) 30-39.9) 00:00: [place] 00 Medical Branch Osteomyeli Osteomyeli Disease Active U nivers tis tis 5-24 ity of 00:00: [place] 00 Medical Branch Positive Positive Disease Active 2015-06 Unive rs serology serology 1-15 ity of for for 00:00: [place] syphilis syphilis 00 Medica l Branch 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 1-15 it y of ve ve 00:00: [place] 00 Medical Branch Trichomoni Trichomoni Disease Active 2015-06 U nivers asis asis 0-26 ity of 00:00: [place] 00 Medical Branch Tobacco Tobacco Disease Active 2015-06 Univers use use 0-24 ity of 00:00: [place] 00 Medical Branch Arthralgia Arthralgia Disease Active [...] openia openia 6-17 ity of 00:00: [place] 00 Medical Branch Alcohol Alcohol Disease Active Univers use use 6-17 ity of 00:00: [place] [facility] Thrombocyt Thrombocyt Disease Active U nivers openia openia 6-17 ity of 00:00: [place] 00 Medical Branch Cervical Cervical Disease Active Unive [...] mental 7-18 [facility] state state 00:00: Medical 00 Center Cerebral Cerebral Disease Active Overview: [facility] infarction infarction 6-30 [facility] 00:[facility]: g of this Medical 00 note Center might be different from the original. UPDATED BY ICD10 SNOMED/IM O UPDATES Right Right Disease Active [facility] hemiparesi hemiparesi 6-30 Rain kes s s 00:00: Medical 00 Center Aphasia Aphasia Disease Active [facility] [...] y of demia) demia) [facility] Acquired Acquired Disease Active Unive rs hypothyroi hypothyroi it y of dism dism [facility] Hypertensi Hypertensi Disease Active [facility] on on [facility] Thyroid Thyroid Disease Active [facility] disease disease [facility] Coronary Coronary Disease Active [facility] artery artery [facility] Disease Active [facility] (myocardia (myocardia Rain kes l l Medical infarction infarction Ce nter ) ) Seizures Seizures Disease Active [facility] S t [facility] Stroke Stroke Disease Active Overview: [facility] Formatt[facility] kes g of this Medical note Center might be different from the original. x2 Fibromyalg Fibromyalg Disease Active [facility] ia ia [facility] Allergies, Adverse Reactions, Alerts Allergy Allergy Status Severity Reaction(s) Onset Inactive Treating Comm ents Source Name Type Date Date Clinician PENICILL Allergy Active High Anaphylaxis [facility] INS 6-30 [facility]: Medical 00 [place] Penicill Drug Active Anaphylaxis, [facility] ins Allergy Rash 6-30 [facility] 00:[facility]: Medical [address] [place] [address] Penicill Propensi Active Rash Univer s ins ty to 8-29 ity of adverse 00:00: [place] reaction 00 [facility] PENICILL Drug Active Rash Univers INS Class 8-29 ity of 00:00: [place] 00 [facility] Penicill Propensi Active Rash Univer s ins ty to 8-29 ity of adverse 00:00: [place] reaction 00 [facility] Family History Family Member Diagnosis Comments Start Date Stop Date Source Natural mother Heart disease [facility] Natural mother Stroke [facility] Social History Social Habit Start Date Stop Date Quantity Comments Source History of tobacco Cigarette Smoker University of use [facility] Tobacco use and 2015-08-01 2015-08-01 Smokeless tobacco Un iversity of exposure 00:00:00 00:00:00 non-user [facility] Cigarette 2015-08-01 2015-08-01 University of pack-years 00:00:00 00:00:00 [facility] Tobacco Comment 2014-12-26 2014-12-26 smokes 6 cig/day Uni versity of 00:00:00 00:00:00 [facility] Alcohol intake 2014-10-06 2014-10-06 [facility]er [facility] 00:00:00 of alcohol [facility] (finding) Cigarettes smoked 2012-12-24 2012-12-[address] [facility] current (pack per 00:00:00 00:00:00 Medical Center day) - Reported Alcohol Comment 2012-12-06 2012-12-06 EtOH abuse, no [facility] 00:[facility] 00:00:00 h/o withdrawal Medical Ce nter seizures Sex Assigned At [address] Rain kes 00:00:00 00:00:00 [facility] Smoking Status Start Date Stop Date Source Smokes tobacco daily 2015-08-01 00:00:00 Univers ity of [facility] Medications Ordered Filled Start Stop Current Ordering Indication Dosage Frequency Signature Comments Components Source Medication Medication Date Date Medication? Clinician (SIG) Name Name aspirin 81 0 Yes 81mg Take 1 [facility] t MG chewable 6-22 tablet (81 Rain kes tablet 13:31: mg total) Medica l 04 by mouth. [place] levothyroxi Yes 75ug Take [address] ne 6-22 tablet (75 [facility] (SYNTHROID, 13:31: mcg total) Medical LEVOTHROID) 04 by mouth Cent er 75 MCG Every tablet morning on an empty stomach. gabapentin 2022-0 Yes 600mg Q.[id number] Take [address] (NEURONTIN) 6-22 [id number] tablet [facility] 600 MG 13:31: 3D (600 [...] tablet 04 by mouth Center daily. lisinopriL 2022-0 Yes 40mg QD Take 1 [facility] t (PRINIVIL,Z 6-22 tablet (40 Rain kes ESTRIL) 40 13:31: mg total) Me dical MG tablet 04 by mouth Center daily. ALPRAZolam 2022-0 Yes .5mg Take 1 [facility] t (XANAX) 0.5 6-22 tablet [facility] MG tablet 13:31: (0.5 mg Medic al 04 total) by Center mouth 3 (three) times daily as needed for Anxiety. Max Daily Amount: 1.5 mg HYDROcodone 2022-0 Yes 1{tbl} Take [address] -acetaminop 6-22 tablet by Tay lubna dumont (NORCO 13:31: mouth Medica l 10-325) 04 every 6 Center 10-325 mg (six) per tablet hours as needed for Pain. Max Daily Amount: 4 tablets meloxicam 2022-0 Yes 7.5mg Q.5D Take 1 [facility] t (MOBIC) 7.5 6-22 tablet [facility] MG tablet 13:31: (7.5 mg Medic al 04 total) by Center mouth 2 (two) times daily. aspirin 81 2022-0 Yes 81mg Take 1 [facility] t MG chewable 6-22 tablet (81 Rain kes tablet 13:31: mg total) Medica l 04 by mouth. Center levothyroxi 2022-0 Yes 75ug Take [address] [facility] ne 6-22 tablet (75 [facility] (SYNTHROID, 13:31: mcg total) Medical LEVOTHROID) 04 by mouth Cent er 75 MCG Every tablet morning on an empty stomach. gabapentin 3-0 Yes 600mg Q.[id number] Take [address] (NEURONTIN) 6-22 [id number] tablet [facility] 600 MG 13:31: 3D (600 mg Medical tablet 04 total) by Center mouth 3 (three) times daily. cyclobenzap 2022-0 Yes 30mg Take [address] [facility] rine 6-22 capsule [facility] (AMRIX) 30 13:31: (30 mg Medic al MG 24 hr 04 total) by Center capsule mouth daily as needed for Muscle spasms. levETIRAcet 2023-0 Yes 1000mg Q.5D Take [address] am (KEPPRA) 6-22 tablet [facility] 1000 MG 13:31: (1,000 mg Medic al tablet 04 total) by Center mouth 2 (two) times daily. amLODIPine 2023-0 Yes 10mg QD Take 1 [facility] t (NORVASC) 6-22 tablet (10 Luke s 10 MG 13:31: mg total) Medical tablet 04 by mouth Center daily. lisinopriL 2023-0 Yes 40mg QD Take 1 [facility] t (PRINIVIL,Z 6-22 tablet (40 Rain kes ESTRIL) 40 13:31: mg total) Me dical MG tablet 04 by mouth Center daily. ALPRAZolam 3-0 Yes .5mg Take 1 [facility] t (XANAX) 0.5 6-22 tablet [facility]ukes MG tablet 13:31: (0.5 mg Medic al 04 total) by Center mouth 3 (three) times daily as needed for Anxiety. Max Daily Amount: 1.5 mg HYDROcodone 2022-0 Yes 1{tbl} Take [address] -acetaminop 6-22 tablet by Tay es hen (NORCO 13:31: mouth Medica l 10-325) 04 every 6 Center 10-325 mg (six) per tablet hours as needed for Pain. Max Daily Amount: 4 tablets meloxicam 3-0 Yes 7.5mg Q.5D Take 1 [facility] t (MOBIC) 7.5 6-22 tablet [facility] MG tablet 13:31: (7.5 mg Medic al 04 total) by Center mouth 2 (two) times daily. acetaminoph 2022-0 2022- No 1{tbl} Take [address] en-codeine -27 12- tablet by Tay es (TYLENOL 00:00: 23:59 mouth Medical #3) 300-30 00 :00 every 8 Center mg per (eight) tablet hours as needed for up to 10 days. Max Daily Amount: 3 tablets acetaminoph 2022-0 2022- Yes 1{tbl} Take [address] en-codeine -27 12- tablet by Tay es (TYLENOL 00:00: 23:59 mouth Medical #3) 300-30 00 :00 every 8 Center mg per (eight) tablet hours as needed for up to 10 days. Max Daily Amount: 3 tablets clindamycin 2022- No 300mg Q.[id number] Take [address] (CLEOCIN) 11-27 [id number] capsule [facility] 300 MG 00:00: 23:59 3D (300 mg Medical capsule 00 :00 total) by Center mouth 3 (three) times daily for 5 days. clindamycin 2022- Yes 300mg Q.[id number] Take [address] (CLEOCIN) 11-27 [id number] capsule [facility] 300 MG 00:00: 23:59 3D (300 mg Medical capsule 00 :00 total) by Center mouth 3 (three) times daily for 5 days. gabapentin 2018-06 Yes [id number] 400mg Take 1 Univers (NEURONTIN) 2-14 capsule by it y of 400 mg 00:00: mouth 3 [place] capsule 00 (three) Medical times Branch daily. cyclobenzap 2018-06 Yes [id number] 10mg Take 1 Univers rine 10 mg 2-14 tablet by ity of tablet 00:00: mouth 3 [place] 00 (three) Medical times Branch daily. amLODIPine Yes [id number] 5mg Take 1 U nivers 5 mg tablet 7-26 tablet by ity of 00:00: mouth [place] 00 daily. Medical Branch cyclobenzap Yes [id number] 10mg Take 1 Univers rine 10 mg 7-26 tablet by ity of tablet 00:00: mouth 3 [place] 00 (three) Medical times Branch daily as needed for Muscle Spasms. gabapentin Yes [id number] 400mg Take 1 Univers 400 mg 7-26 capsule by ity of capsule 00:00: mouth 3 [place] 00 (three) Medical times Branch daily. amLODIPine Yes [id number] 5mg Take 1 U nivers 5 mg tablet 7-26 tablet by ity of 00:00: mouth [place] 00 daily. Medical Branch cyclobenzap Yes [id number] 10mg Take 1 Univers rine 10 mg 7-26 tablet by ity of tablet 00:00: mouth 3 [place] 00 (three) Medical times Branch daily as needed for Muscle Spasms. gabapentin Yes [id number] 400mg Take 1 Univers 400 mg 7-26 capsule by ity of capsule 00:00: mouth 3 00 (three) Medical times Branch daily. amLODIPine 2019 Yes [id number] 5mg Take 1 U nivers 5 mg tablet 7-26 tablet by ity of 00:00: mouth [place] 00 daily. Medical Branch amLODIPine Yes [id number] 5mg Take 1 U nivers 5 mg tablet 7-26 tablet by ity of 00:00: mouth [place] 00 daily. Medical Branch cyclobenzap Yes [id number] 10mg Take 1 Univers rine 10 mg 7-26 tablet by ity of tablet 00:00: mouth 3 (three) Medical times Branch daily as needed for Muscle Spasms. gabapentin Yes [id number] 400mg Take 1 Univers 400 mg 7-26 capsule by ity of capsule 00:00: mouth 3 (three) Medical times Branch daily. LEVOTHYROXI 0 Yes TAKE 1 Univ ers NE 75 mcg 5-07 TABLET BY ity o f tablet 00:00: MOUTH 00 EVERY Medical MORNING Branch LEVETIRACET 0 Yes TAKE 1 Univ ers AM 500 mg 5-07 TABLET BY ity o f tablet 00:00: MOUTH 00 TWICE A Medical DAY Branch LISINOPRIL 0 Yes TAKE 1 Unive rs 40 mg 5-07 TABLET BY ity of tablet 00:00: MOUTH 00 EVERY DAY Medical Branch LEVOTHYROXI 2017-0 Yes TAKE 1 Univ ers NE 75 mcg 5-07 TABLET BY ity o f tablet 00:00: MOUTH [place] 00 EVERY Medical MORNING Branch LEVETIRACET 2017-0 Yes TAKE 1 Univ ers AM 500 mg 5-07 TABLET BY ity o f tablet 00:00: MOUTH [place] 00 TWICE A Medical DAY Branch LISINOPRIL 2017-0 Yes TAKE 1 Unive rs 40 mg 5-07 TABLET BY ity of tablet 00:00: MOUTH 00 EVERY DAY Medical Branch LEVOTHYROXI 2017-0 Yes TAKE 1 Univ ers NE 75 mcg 5-07 TABLET BY ity o f tablet 00:00: MOUTH [place] 00 EVERY Medical MORNING Branch LEVETIRACET 2017-0 Yes TAKE 1 Univ ers AM 500 mg 5-07 TABLET BY ity o f tablet 00:00: MOUTH 00 TWICE A Medical DAY Branch LISINOPRIL 2017-0 Yes TAKE 1 Unive rs 40 mg [...] BY ity o f tablet 00:00: MOUTH [place] 00 TWICE A Medical DAY Branch AMLODIPINE 2018-0 Yes TAKE 1 Unive rs 5 mg tablet 5-07 TABLET BY ity of 00:00: MOUTH [place] 00 EVERY DAY Medical Branch LISINOPRIL 2017-0 Yes TAKE 1 Unive rs 40 mg 5-07 TABLET BY ity of tablet 00:00: MOUTH [place] 00 EVERY DAY Medical Branch LEVOTHYROXI 2017-0 Yes TAKE 1 Univ ers NE 75 mcg 5-07 TABLET BY ity o f tablet 00:00: MOUTH [place] 00 EVERY Medical MORNING Branch LEVETIRACET 0 Yes TAKE 1 Univ ers AM 500 mg 5-07 TABLET BY ity o f tablet 00:00: MOUTH [place] 00 TWICE A Medical DAY Branch LISINOPRIL 2018-0 Yes TAKE 1 Unive rs 40 mg 5-07 TABLET BY ity of tablet 00:00: MOUTH [place] 00 EVERY DAY Medical Branch AMLODIPINE 2017-0 2019- No TAKE 1 Univ ers 5 mg tablet 5-07 07-26 TABLET BY it y of 00:00: 00:00 MOUTH [place] 00 :00 EVERY DAY Medical Branch METOPROLOL 2018-0 Yes TAKE 1 Unive rs TARTRATE 50 3-12 TABLET BY ity of mg tablet 00:00: [facility] 00 TWICE A Medical DAY Branch METOPROLOL 2018-0 2019- No TAKE 1 Univ ers TARTRATE 50 3-12 07-26 TABLET BY it y of mg tablet 00:00: 00:00 MOUTH [place] 00 :00 TWICE A Medical DAY Branch GABAPENTIN 2017- Yes TAKE 3 Unive rs 300 mg 0-27 CAPSULES ity of capsule 00:00: BY MOUTH [place] 00 THREE Medical TIMES Branch DAILY. GABAPENTIN 2016- 2019- No TAKE 3 Univ ers 300 mg 0-27 07-26 CAPSULES ity of capsule 00:00: 00:00 BY MOUTH [place] 00 :00 THREE Medical TIMES Branch DAILY. Walker 2017-0 Yes [id number] Use as Unive rs (ULTRA-LIGH 6-27 directed ity of T ROLLATOR) 00:00: [place] [address] Medical Branch Walker 2017-0 Yes [id number] Use as Unive rs (ULTRA-LIGH 6-27 directed ity of T ROLLATOR) 00:00: [place] [address] Medical Branch Walker 2017-0 Yes [id number] Use as Unive rs (ULTRA-LIGH 6-27 directed ity of T ROLLATOR) 00:00: [place] [address] Medical Branch Walker 2017-0 Yes [id number] Use as Unive rs (ULTRA-LIGH 6-27 directed ity of T ROLLATOR) 00:00: [place] [address] Medical Branch Walker 2017-0 Yes [id number] Use as Unive rs (ULTRA-LIGH 6-27 directed ity of T ROLLATOR) 00:00: [place] [address] Medical Branch metroNIDAZO 2017-0 Yes 500mg Take 1 Uni vers LE 500 mg 6-12 tablet by ity o f tablet 00:00: mouth 2 (two) Medical times Branch daily. metroNIDAZO 2017-0 Yes 500mg Take 1 Uni vers LE 500 mg 6-12 tablet by ity o f tablet 00:00: mouth (two) Medical times Branch daily. metroNIDAZO 2017-0 Yes 500mg Take 1 Uni vers LE 500 mg 6-12 tablet by ity o f tablet 00:00: mouth (two) Medical times Branch daily. metroNIDAZO 2017-0 Yes 500mg Take 1 Uni vers LE 500 mg 6-12 tablet by ity o f tablet 00:00: mouth (two) Medical times Branch daily. metroNIDAZO 2017-0 Yes 500mg Take 1 Uni vers LE 500 mg 6-12 tablet by ity o f tablet 00:00: mouth (two) Medical times Branch daily. metroNIDAZO 2017-0 [...] by mouth ity of tablet 20:00: daily. [address] aspirin 81 Yes 81mg Take 81 mg U nivers mg chewable 6-09 by mouth ity of tablet 20:00: daily. [address] aspirin 81 Yes 81mg Take 81 mg U nivers mg chewable 6-09 by mouth ity of tablet 20:00: daily. [address] aspirin 81 Yes 81mg Take 81 mg U nivers mg chewable 6-09 by mouth ity of tablet 20:00: daily. [address] aspirin 81 Yes 81mg Take 81 mg U nivers mg chewable 6-09 by mouth ity of tablet 15:00: daily. [address] Branch KCL 10 mEq Yes [id number] 10meq Take 1 Univers tablet 6-09 tablet by ity of 00:00: mouth [place] 00 daily. Medical Branch KCL 10 mEq Yes [id number] 10meq Take 1 Univers tablet 6-09 tablet by ity of 00:00: mouth [place] 00 daily. Medical Branch KCL 10 mEq Yes [id number] 10meq Take 1 Univers tablet 6-09 tablet by ity of 00:00: mouth [place] 00 daily. Medical Branch KCL 10 mEq Yes [id number] 10meq Take 1 Univers tablet 6-09 tablet by ity of 00:00: mouth [place] 00 daily. Medical Branch KCL 10 mEq Yes [id number] 10meq Take 1 Univers tablet 6-09 tablet by ity of 00:00: mouth [place] 00 daily. Medical Branch baclofen 10 Yes Univer s mg tablet 11-12 ity of 00:00: [place] 00 Medical Branch baclofen 10 2019- No Unive rs mg tablet 11-12 ity of 00:00: 00:00 [place] 00 :00 Medical Branch mupirocin 2 2016-0 Yes Apply to [...] 00 times Medical daily. Branch mupirocin 2 2017-0 Yes Apply to Un ac % ointment 5-26 area(s) 3 ity of 00:00: (three) [place] 00 times Medical daily. Branch mupirocin 2 2016-0 Yes Apply to Un ac % ointment 5-26 area(s) 3 ity of 00:00: (three) [place] 00 times Medical daily. Branch acetaminoph 2015-06 Yes [id number] 1{tbl} Take 1 Univers en-codeine 1-17 07 tablet by ity of (TYLENOL 00:00: mouth [place] #3) 300-30 00 every 6 Medica l mg tablet (six) Branch hours as needed for Pain (scale 7-10) or Pain unrelieved by non-narcot ic analgesics . acetaminoph 2015-06 2019- No [id number] 1{tbl} Take 1 Univers en-codeine 1-17 07-26 [...] needed for Muscle Spasms. lactulose Yes 20g Q.[id number] Take [address] (CHRONULAC) 5-14 [id number] mLs (20 g [facility] 20 gram/30 00:00: 3D total) by Me dical mL solution 00 mouth 3 Cente r (three) times daily. lactulose Yes 20g Q.[id number] Take [address] (CHRONULAC) 5-14 [id number] mLs (20 g [facility] 20 gram/30 00:00: 3D total) by Me dical mL solution 00 mouth 3 Cente r (three) times daily. Immunizations Ordered Filled Immunization Date Status Comments [facility] e Immunization Name Name TDAP (ADACEL) 2016-04-25 Completed University of VACCINE 00:00:00 [facility] TDAP (ADACEL) 2016-04-25 Completed University of VACCINE 00:00:00 [facility] TDAP (ADACEL) 2016-04-25 Completed University of VACCINE 00:00:00 [facility] TDAP (ADACEL) 2016-04-25 Completed University of VACCINE 00:00:00 [facility] TDAP (ADACEL) 2016-04-25 Completed University of VACCINE 00:00:00 [facility] Influenza Virus 2016-04-01 Completed Universit y of Vaccine Quad IM 00:00:00 [facility] ical Multi-dose 6+ MO Branch Influenza Virus 2016-04-01 Completed Universit y of Vaccine [facility] IM 00:00:00 [facility] ical Multi-dose 6+ MO Branch Influenza Virus 2016-04-01 Completed Universit y of Vaccine [facility] IM 00:00:00 [facility] ical Multi-dose 6+ MO Branch Influenza Virus 2016-04-01 Completed Universit y of Vaccine [facility] IM 00:00:00 [facility] ical Multi-dose 6+ MO Branch Influenza Virus 2016-04-01 Completed Universit y of Vaccine [facility] IM 00:00:00 [facility] ical Multi-dose 6+ MO Branch Pneumococcal 2015-08-24 Completed University o f Polysaccharide, 00:00:00 [facility] PPSV23 (PNEUMOVAX) [place] Influenza Virus 2015-08-24 Completed Universit y of Vaccine Quad IM 3+ 00:00:00 [facility] Pneumococcal 2015-08-24 Completed University o f Polysaccharide, 00:00:00 [place] Med ical PPSV23 (PNEUMOVAX) Branch Influenza Virus 2015-08-24 Completed Universit y of Vaccine [facility] IM 3+ 00:00:00 [facility] Pneumococcal 2015-08-24 Completed University o f Polysaccharide, 00:00:00 [place] Med ical PPSV23 (PNEUMOVAX) Branch Influenza Virus 2015-08-24 Completed Universit y of Vaccine [facility] IM 3+ 00:00:00 [facility] Pneumococcal 2015-08-24 Completed University o f Polysaccharide, 00:00:00 [place] Med ical PPSV23 (PNEUMOVAX) Branch Influenza Virus 2015-08-24 Completed Universit y of Vaccine [facility] IM 3+ 00:00:00 [facility] Pneumococcal 2015-08-24 Completed University o f Polysaccharide, 00:00:00 [place] Med ical PPSV23 (PNEUMOVAX) Branch Influenza Virus 2015-08-24 Completed Universit y of Vaccine [facility] IM 3+ 00:00:00 [facility] Hepatitis A 2014-10-[address] [facility] 00:00:00 [facility] HEPATITIS A 2014-10-06 Completed University of 00:00:00 [facility] Hepatitis A 2014-10-[address] [facility] 00:00:00 [facility] Vital Signs Vital Name Observation Time Observation Value Comments Source Systolic blood 2019-01-01 13:32:00 142 mm[Hg] [facility] Diastolic blood 2019-01-01 13:32:00 100 mm[Hg] [facility] Heart rate 2019-01-01 13:32:00 86 /min [facility] Body temperature 2019-01-01 13:32:00 36.44 Eryn [facility] Body height 2019-01-01 13:32:00 165.1 cm [facility] Body weight 2019-01-01 13:32:00 81.647 kg [facility] BMI 2019-01-01 13:32:00 29.95 kg/m2 [facility] Systolic blood 2022-11-27 11:23:00 104 mm[Hg] [facility] Diastolic blood 2022-11-27 11:23:00 72 mm[Hg] [facility] Heart rate 2022-11-27 11:23:00 77 /min [facility] Body temperature 2022-11-27 11:23:00 36.44 Eryn [facility] Respiratory rate 2022-11-27 11:23:00 18 /min [facility] Oxygen saturation in 2022-11-27 11:23:00 95 /min [facility] Arterial blood by Medical Ce nter Pulse oximetry Procedures Procedure Date / Time Performing Clinician Source Performed CBC W/PLT COUNT & AUTO 2022-11-27 05:08:00 Deejay [facility] DIFFERENTIAL Center COMPREHENSIVE METABOLIC 2022-11-27 05:08:00 Deejay [facility] CBC W/PLT COUNT & AUTO 2022-11-27 05:08:00 Deejay [facility] HEPATITIS B PCR, 2022-11-26 18:13:00 Leia [facility] QUANTITATIVE [facility] HEPATITIS C PCR, 2022-11-26 10:31:00 Ankortney [facility] ALPHA FETOPROTEIN (AFP), 2022-11-26 10:31:00 Leia [facility] TUMOR MARKER [facility] HEPATITIS A ANTIBODY, IGG 2022-11-26 10:31:00 Landen Dupree I [facility] HEPATITIS B CORE 2022-11-26 10:31:00 Leia [facility] ANTIBODY, TOTAL [facility] HEPATITIS B SURFACE 2022-11-26 10:31:00 [facility] HEPATITIS B SURFACE 2022-11-26 10:31:00 Ankortney [facility] ANTIBODY [facility] IRON, TIBC, % SAT. 2022-11-26 10:31:00 Leia [facility] (WITHOUT FERRITIN) [facility] FERRITIN 2022-11-26 10:31:00 Leia [facility] IMMUNOGLOBULIN G (IGG) 2022-11-26 10:31:00 LeiaJianandreas [facility] PHOSPHATIDYLETHANOL, 2022-11-26 10:31:00 Leia Sclindaann-marie [facility] US ABDOMEN COMPLETE 2022-11-26 07:16[facility]26 04:40[facility] 2022-11-26 04:33:00 [facility] CBC (HEMOGRAM ONLY) 2022-11-26 04:33:00 [place] COMPREHENSIVE METABOLIC 2022-11-26 04:33:00 [facility] MAGNESIUM 2022-11-26 04:33:00 [facility] PROTHROMBIN TIME/INR 2022-11-25 23:54:00 [place] REFERRAL- 2022-04-07 05:01:00 Doctor Gomez, [facility] REQUEST/RESPONSE [place] [facility] AUTHORIZATION FOR RELEASE 2019-02-18 05:01:00 Doctor Gomez, [facility] Name Medical [place] COMP. METABOLIC PANEL 2019-01-01 13:52:00 Al Zimmer [facility] ([id number]) Medical [place] LIPID PANEL ([id number])(TOTAL 2019-01-01 13:52:00 Al Zimmer [facility] CHOLESTEROL, [facility] TRIGLYCERIDES, HDL) CBC WITH DIFFERENTIAL 2019-01-01 13:52:00 Al Zimmer [facility] Medical [place] ASSIGNMENT OF BENEFITS 2019-01-01 13:15:46 Doctor Unasschao, [facility] Name Medical [place] Plan of Care Planned Activity Planned Date Details Comments Source Future Scheduled 2026-04-25 DTAP/TDAP/TD VACCINES ([address] [facility] Test 00:00:00 - Td or Tdap) [code = [facility] DTAP/TDAP/TD VACCINES (2 - Td or Tdap)] Future Scheduled 2026-04-25 DTAP/TDAP/TD VACCINES ([address] [facility] Test 00:00:00 - Td or Tdap) [code = Medica l Center DTAP/TDAP/TD VACCINES (2 - Td or Tdap)] Future Scheduled 2023-02-07 Influenza Vaccine (#1) [facility] 00:[facility]00 [code = Influenza Vaccine Me dical Center (#1)] Future Scheduled 2023-02-07 Influenza Vaccine (Season [facility] 00:00:00 Ended) [code = Influenza Med ical Center Vaccine (Season Ended)] Future Scheduled 2022-06-[address] [facility] 00:00:00 (12+) [code = DEPRESSION Med ical Center SCREENING (12+)] Future Scheduled 2022-06-[address] [facility] 00:00:00 (12+) [code = DEPRESSION Med ical Center SCREENING (12+)] Future Scheduled 2017-10-06 Lipid panel (procedure) [facility] 00:00:00 [code = 56484211] Medical Ce nter Future Scheduled 2017-10-06 Lipid panel (procedure) [facility] 00:00:00 [code = 62561251] Medical Ce nter Future Scheduled 2010 SHINGLES VACCINES ([address] [facility] 00:00:00 2) [code = SHINGLES [facility] VACCINES (1 of 2)] Future Scheduled 2010 SHINGLES VACCINES ([address] [facility] 00:00:00 2) [code = SHINGLES [facility] VACCINES (1 of 2)] Future Scheduled 1981 Screening for malignant [facility] 00:00:00 neoplasm of cervix Medical C enter (procedure) [code = 001024410] Future Scheduled 1981 Screening for malignant [facility] 00:00:00 neoplasm of cervix Medical C enter (procedure) [code = 960097597] Future Scheduled [address] [facility] 00:00:00 virus screening Medical Cent er (procedure) [code = 954859920] Future Scheduled [address] [facility] 00:00:00 Counseling and Screening Med ica Center (12+) [code = Tobacco Cessation Counseling and Screening (12+)] Future Scheduled [address] [facility] 00:00:00 Counseling and Screening [facility] ica Center (12+) [code = Tobacco Cessation Counseling and Screening (12+)] Future Scheduled 1960 COVID-19 VACCINE (#1) [facility] 00:00:00 [code = COVID-19 VACCINE Med ical Center (#1)] Future Scheduled 1960 COVID-19 VACCINE (#1) [facility] 00:00:00 [code = COVID-19 VACCINE Med ical Center (#1)] Future Scheduled 1960 Screening for malignant [facility] 00:00:00 neoplasm of breast Medical C enter (procedure) [code = 166073283] Future Scheduled 1960 CT Colonography (combo) [facility] 00:00:00 [code = CT Colonography [facility] (combo)] Future Scheduled 1960 Screening for malignant [facility] 00:00:00 neoplasm of colon Medical Ce nter (procedure) [code = 311857204] Future Scheduled 1960 Screening for malignant [facility] 00:00:00 neoplasm of colon Medical Ce nter (procedure) [code = 757293089] Future Scheduled 1960 Screening for malignant [facility] 00:00:00 neoplasm of colon Medical Ce nter (procedure) [code = 575626246] Future Scheduled 1960 Screening for malignant [facility] 00:00:00 neoplasm of colon Medical Ce nter (procedure) [code = 166241609] Future Scheduled 1960 Sigmoidoscopy [code = [facility] S[facility]oidoscopy] Medical Cente r Future Scheduled 1960 Screening for malignant [facility] 00:00:00 neoplasm of breast Medical C enter (procedure) [code = 697590566] Future Scheduled 1960 CT Colonography (combo) [facility] 00:00:00 [code = CT Colonography [facility] (combo)] Future Scheduled 1960 Screening for malignant [facility] 00:00:00 neoplasm of colon Medical Ce nter (procedure) [code = 325296160] Future Scheduled 1960 Screening for malignant [facility] 00:00:00 neoplasm of colon Medical Ce nter (procedure) [code = 019319878] Future Scheduled 1960 Screening for malignant [facility] 00:00:00 neoplasm of colon Medical Ce nter (procedure) [code = 957808388] Future Scheduled 1960 Screening for malignant [facility] 00:00:00 neoplasm of colon Medical Ce nter (procedure) [code = 415340581] Future Scheduled 1960 Sigmoidoscopy [code = [facility] S[facility]oscopy] Medical Cente r Encounters Start End Encounter Admission Attending Care Care Encounter Source Date/Time Date/Time Type Type Clinicians Facility Department ID 2022-11-26 Inpatient ER [facility] [id number] [facility] 06:27:05 MAILE 2023-01-03 2023-01-03 Outpatient LEYDA CRABTREE [id number] Ramez 16:38:32 16:38:32 [id number] Errol 2022-11-25 2022-11-27 [facility] Lilian Javier [facility] [id number] [facility] 19:36:[facility] 13:31:00 Encounter Mihai Villalba [facility] 2022-11-25 2022-11-27 Inpatient ER JUAN C [facility] [id number] SLE 19:36:00 13:31:00 JEFFERY 2022-10-02 2022-10-02 Outpatient LEYDA CRABTREE [id number] Ramez 09:05:54 09:05:54 [id number] F Errol 2022-09-05 2022-09-05 Outpatient Shonda VIZCAINO [facility] [id number] Univers 14:00:00 14:00:00 [facility] 2022-07-24 2022-07-24 Outpatient Shonda VIZCAINO [facility] [id number] [facility] 13:15:00 13:15:00 [facility] 2022-06-26 2022-06-26 Outpatient LEYDA CRABTREE [id number] Ramez 10:10:22 10:10:22 [id number] F Errol 2022-04-07 2022-04-07 Orders Doctor PRUDENCIO [id number] Univers 00:00:00 00:00:00 Only Unassigned, TAYLOR 350.1.13.10 ity of [facility] 4.2.7.2.686 Juno as [phone] [address] 2022-03-26 2022-03-26 Outpatient [facility] [id number] Ramez 10:47:27 10:47:27 [id number] F [place] 2019-02-18 2019-02-18 Orders Doctor PRUDENCIO [id number] Univers 00:00:00 00:00:00 Only Unassigned, TAYLOR 350.1.13.10 ity of [facility] 4.2.7.2.686 Juno as [phone] [address] 2019-01-24 2019-01-24 Refill Goran [facility] 1.2.840.114 [id number] [facility] 00:00:00 00:00:00 [facility] 350.1.13.10 ity of [place] 4.2.7.2.686 Juno as Professio [phone] [address] Office [address] [facility] 2019-01-01 2019-01-01 Office Goran RIYULI 1.2.840.114 [id number] [facility] 08:17:32 09:01:49 Visit [facility] 350.1.13.10 ity of [place] 4.2.7.2.686 Juno as Professio [phone] [address] Office [facility] 2019-01-01 2019-01-01 Orders Doctor PRUDENCIO 1.2.840.114 [id number] [facility] 00:00:00 00:00:00 Only Unassigned, TAYLOR 350.1.13.10 ity of [place] [facility] 4.2.7.2.686 Juno as [phone] [address] Results Test Description Test Time Test Comments Results Result Comments Source PHOSPHATIDYLETHANOL, BLOOD 2022-12-02 14:25:37 Test Item Value Reference Range Interpretation Comme nts PHOSPHATIDYLETHANOL (PETH) (test code = 2994579) See scanned report. BLOOD [id number] 06:00:57 Test Item Value Reference Range Interpretation Comments CULTURE (BEAKER) (test No growth in 5 days code = 1095) BLOOD [id number] 06:00:55 Test Item Value Reference Range Interpretation Comments CULTURE (BEAKER) (test No growth in 5 days code = 1095) HEPATITIS B PCR, [id number] 13:42:33 Test Item Value Reference Range Interpretation Comments HBV RESULT COMPONENT HBV DNA not detected HBV DNA not detected (BEAKER) (test code = 2701) HEPATITIS C PCR, [id number] 12:37:27 Test Item Value Reference Range Interpretation Comments HCV NUMERIC RESULT (BEAKER) 0031833 IU/mL <15 H (test code = 2700) COMPREHENSIVE METABOLIC [id number] 06:24:26 Test Item Value Reference Range Interpretation [...] eGF R is based on the CKD-EPI 202 equation that d oes not use a race coefficientEsti mated GFR is not as accur ate as Creatinine Mabel castillo in predicting glom erular filtration rate . Estimated GFR is not appl icable for dialysis patien ts Forensic Social Worker ID - TEJA WCBC W/PLT COUNT & AUTO [id number] 05:34:25 Test Item Value Reference Range Interpretation [...] code = 2801) HEPATITIS B CORE ANTIBODY, [id number] 16:13:44 Test Item Value Reference Range Interpretation Comments HEPATITIS B CORE TOTAL ANTIBODY Reactive Nonreactive A (BEAKER) (test code = 497) Forensic Social Worker ID - ADMINOperator ID - ADMINOperator ID - ADMINHEPATITIS A ANTIBODY, [id number] 14:44:39 Test Item Value Reference Range Interpretation Comments HEPATITIS A IGG ANTIBODY (BEAKER) Nonreactive Nonreactive (test code = 2797) Forensic Social Worker ID - ADMINHEPATITIS B SURFACE [id number] 14:44:38 Test Item Value Reference Range Interpretation Comments HEPATITIS B SURFACE ANTIBODY 592.8 mIU/mL <8.0 H (BEAKER) (test code = 647) Forensic Social Worker ID - ADMINALPHA FETOPROTEIN (AFP), TUMOR [id number] 14:44:38 Test Item Value Reference Range Interpretation Comments ALPHA-FETOPROTEIN (BEAKER) (test 3.8 ng/mL <10.0 code = 1094) Forensic Social Worker ID - ADMINHEPATITIS B SURFACE [id number] 14:44:37 Test Item Value Reference Range Interpretation [...] 22 % 20-55 (test code = 2590) Forensic Social Worker ID - ADMINIMMUNOGLOBULIN G (IGG)2022-11-26 12:39:58 Test Item Value Reference Range Interpretation Comments IMMUNOGLOBULIN G (IGG) (BEAKER) 1975 mg/dL 540-1822 H (test code = 427) Forensic Social Worker ID - [id number] 12:06:28 Test Item Value Reference Range Interpretation Comments FERRITIN (BEAKER) (test code = 142.93 ng/mL 5.00-275.00 361) Forensic Social Worker ID - lmUS ABDOMEN [id number] 09:43:15 [facility] 1960 Sex: FAbdominal ultrasoundClinical History: CirrhosisComparison: MRI from 07/01/2012Findings:Sonographic evaluation of the the abdomen is performed.The visualized pancreas appears unremarkable.The liver is normal in size measuring 17.4 cm in length and demonstratesa coarsened heterogeneous echotexture which can be seen in setting ofhepatic dysfunction/cirrhosis. No focal hepatic abnormality isidentified. The main portal vein is patent with antegrade flow anddiameter of 1.2 cm, within normal limits.The gallbladder is unremarkable. There is no evidence forcholelithiasis, wall thickening, or pericholecystic flu id. There is nointra or extrahepatic biliary ductal [...] there is no evidence for solid renal mass ,hydronephrosis, or shadowing calculi.The visualized portions of the IVC and aorta are within normallimits.There is no ascites present.IMPRESSION:Impression:Sonographic findings suggestive of cirrhosis. 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 Electronically Signed By: Ion Douglas MD11/26/2022 09:45 CDTWorkstation Name: [id number] COMPREHENSIVE METABOLIC [id number] 09:34:36 Test Item Value Reference Range Interpretation [...] not as accur ate as Creatinine Mabel anna in predicting glom erular filtration rate . Estimated GFR is not appl icable for dialysis patien ts Forensic Social Worker ID - [id number] 09:34:36 Test Item Value Reference Range Interpretation Comments MAGNESIUM (BEAKER) (test code = 1.9 mg/dL 1.6-2.6 627) Forensic Social Worker ID - ADMINCBC (HEMOGRAM ONLY)2022-11-26 05:01:00 Test [...] 0-0 (BEAKER) (test code = 413) PROTHROMBIN [id number] 00:24:41 Test Item Value Reference Range Interpretation Comments PROTIME (BEAKER) (test code = 15.5 seconds 11.9-14.2 H 759) INR (BEAKER) (test code = 370) 1.31 <=5.90 RECOMMENDED COUMADIN/WARFARIN INR THERAPY RANGESSTANDARD DOSE: 2.0 - 3.0 Includes: PROPHYLAXIS for venous thrombosis, systemic embolization; TREATMENT for venous thrombosis and/or pulmonary embolus.HIGH RISK: Target INR is 2.5-3.5 for patients with mechanical heart valves.TSH, THIRD [id number] 04:53:46 Test Item Value Reference Range Interpretation Comments TSH, THIRD 89.300 UIU/ML 0.400-4.100 H UNLESS OTHERW ISE GENERATION (test INDICATED, ALL code = 2821) TESTING PERFORM ED ATCLINICAL PATH [facility], [address] DIRECTOR: TRAE BOURGEOIS M.D. CLIA NUMBER [id number] CAP ACCREDITATION N O. [id number] CBC W/AUTO DIFF WITH [id number] 04:43:48 Test Item Value Reference Range Interpretation [...] RBCS 0.00 K/UL 0.00-0.11 (test code = 61983) COMPREHENSIVE METABOLIC [id number] 03:18:10 Test Item Value Reference Range Interpretation Comments GLUCOSE (test code = 98 MG/DL 70-99 2216) BUN (test code = 12 MG/DL 8-23 2207) CREATININE (test 0.81 MG/DL 0.60-1.30 code = 2214) eGFR (2020 CKD-EPI) 83 ML/MIN/1.73 >60 (test code = 42770) CALC BUN/CREAT (test 15 RATIO 6-28 code = 2235) SODIUM (test code = 141 MEQ/L 527-361 9183) POTASSIUM (test code 4.3 MEQ/L 3.5-5.4 = [...] code = 47 U/L 5-40 H 2218) LIPID [id number] 03:18:10 Test Item Value Reference Range Interpretation [...] MOREINFORMATION , SEE CLIENT ANNOUNCE MENT AT [email or web address] RISK RATIO LDL/HDL 1.78 RATIO <3.22 (test code = 2238) COMP. METABOLIC PANEL (52274)2019-01-01 16:13:00 Test Item Value Reference Range Interpretation Comments NA (test code = 142 mmol/L 135-145 6661830686) K (test code = 5.6 mmol/L 3.5-5 H 9514019299) CL (test code = 106 mmol/L 98-108 6839501659) CO2 TOTAL (test code = 28 mmol/L 23-31 1608486116) AGAP (test code = 2-16 9998997528) BUN (test code = 6 mg/dL 7-23 L 4179417736) GLUCOSE (test code = 105 mg/dL 70-110 5003383614) CREATININE (test code = 0.79 mg/dL 0.5-1.04 4519377961) TOTAL BILI (test code = 1.3 mg/dL 0.1-1.1 H 7973034565) CALCIUM (test code = 9.1 mg/dL 8.6-10.6 6004244943) T PROTEIN (test code = 8.7 g/dL 6.3-8.2 H 6051177039) ALBUMIN (test code = 4.0 g/dL 3.5-5 9639053956) ALK PHOS (test code = 72 U/L 34-122 3617158453) ALT(SGPT) (test code = 58 U/L 9-51 H 8083819351) AST(SGOT) (test code = 87 U/L 13-40 H 3603117121) eGFR Calculation mL/min/1.73m2 (Non-) (test code = 5765369304) eGFR Calculation mL/min/1.73m2 () (test code = 2835915177) ROMY (test code = ROMY) Association of [...] tests). Lab Interpretation Abnormal (test code = 71888-6) [facility] ([facility])(TOTAL CHOLESTEROL, TRIGLYCERIDES, HDL)2019-01-01 16:13:00 Test Item Value Reference Range Interpretation Comments CHOL (test code = 160 mg/dL 120-200 8844266001) HDL (test code = 61 mg/dL >50 3733889611) HDLC RATIO (test code = See_Comment [Au tomated message] 1406544564) The system [employer] generated this result transmit amelie reference range : <=4.5. The refe rence range was not u sed to interpret th is result as normal/abnormal . TRIG (test code = 73 mg/dL 30-170 1724116979) LDL CHOL (test code = 84 mg/dL See_Comment [Auto mated message] 31100-7) The system [employer] generated this result transmit amelie reference range : <=160. The refe rence range was not u sed to interpret th is result as normal/abnormal . VLDL (test code = 15 mg/dL 5-60 3181476050) Lab Interpretation (test Normal code = 77618-6) [facility]"
[2023-01-05] MEDS ORDERED: NA CHLORIDE 0.9% 1,000 ML ONE (15:39)
[2023-01-05] MEDS ORDERED: KETOROLAC 30 MG/ML INJ ONE (15:39)
[2023-01-05 15:50] LABS: Absolute Lymphocytes (CBC) 0.9 K/uL (0.7-4.9); MCV 97.4 fL (80-100); MPV 7.3 fL (7.6-11.3); RBC Red Blood Cell Count 3.39 M/uL (3.86-4.86)
[2023-01-05 15:54] LABS: Protime INR 1.13
[2023-01-05 16:06] LABS: Magnesium 2.2 mg/dL (1.6-2.4); Potassium 3.3 mEq/L (3.5-5.1); Troponin High Sensitivity 10.3 pg/mL (<58.9)
--- NOTE | 2023-01-05 16:27 | RAD REPORT ---
EXAM DESCRIPTION: US - Extrem Venous W Compress [place] - 01/05/2023 4:20 pm CLINICAL HISTORY: Swelling;Pain COMPARISON: Extrem Venous W Compress [place] dated 11/25/2022 TECHNIQUE: Real-time sonographic evaluation of the lower extremity deep venous systems was performed using color Doppler, grayscale, and compression. FINDINGS: Bilateral lower extremities. Normal compressibility, flow augmentation, phasic flow and spontaneous flow is identified in both the left and right lower extremity deep venous systems. No intraluminal filling defects seen. IMPRESSION: No DVT in either lower extremity.
[2023-01-05] MEDS ORDERED: POTASSIUM 25 MEQ EFFERV TAB ONE (16:30)
[2023-01-05] MEDS ORDERED: ACETAMINOPHEN 500 MG TAB ONE (17:15)
[2023-01-05 18:33] LABS: Specific Gravity 1.007 (1.005-1.030); Urine Bacteria 20-50 /HPF (<20); Urine Bilirubin NEGATIVE (Negative); Urine Blood Negative (Negative); Urine Clarity Turbid (Clear); Urine Color Colorless (Yellow); Urine Glucose NEGATIVE (Negative); Urine Mucus Slight /HPF (None Seen); Urine Protein NEGATIVE (Negative); Urine RBC <5 /HPF (None Seen); Urine Urobilinogen Normal (Normal)
[2023-01-05 18:34] LABS: Barbiturates NEGATIVE (NEGATIVE); Benzodiazepines NEGATIVE (NEGATIVE); Cocaine POSITIVE (NEGATIVE); METHAMPHETAM NEGATIVE (NEGATIVE); Methadone NEGATIVE (NEGATIVE); Opiates NEGATIVE (NEGATIVE); Phencyclidine NEGATIVE (NEGATIVE); THC Cannibis NEGATIVE (NEGATIVE)
[2023-01-05] MEDS ORDERED: NA CHLORIDE 0.9% 50 ML ONE (18:58)
[2023-01-05] MEDS ORDERED: CEFTRIAXONE 1000 MG/VIAL ONE (18:58)
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
--- NOTE | 2023-01-05 19:02 | ER ---
Nurse's Notes [facility] Name: Maisha Leo Age: 62 yrs Sex: Female : 1960 Arrival Date: 01/05/2023 Time: 14:27 Bed 14 Private MD: Diagnosis: UTI/ Urinary tract infection, site not specified;Chronic pain, not elsewhere classified;Cocaine use, unspecified, uncomplicated Presentation: 01/05 14:25 Chief complaint: EMS states: Weakness, fatigue and generalized pain. Pt has been [facility] outside the last 3 days, homeless. Took 2 muscle relaxers today to help her pain. Has deficits from prior stroke. 14:25 Ebola Screen: Patient denies travel to an Ebola-affected area in the 21 days before [facility] illness onset. Initial Sepsis Screen: Does the patient meet any 2 criteria? HR > 90 bpm. No. Patient's initial sepsis screen is negative. Does the patient have a suspected source of infection? No. Patient's initial sepsis screen is negative. Risk Assessment: Do you want to hurt yourself or someone else? Patient reports no desire to harm self or others. 14:25 Method Of Arrival: EMS: [place] [id number] 14:25 Acuity: ARTURO 3 [facility] 14:25 Coronavirus screen: Vaccine status: Patient reports receiving the 2nd dose of the covid nj1 vaccine. 14:25 Onset of symptoms was January 02, 2023. [facility] Historical: - Allergies: 14:42 PENICILLINS; nj1 - PMHx: 14:42 ADD/ADHD; Bipolar disorder; Cerebrovascular accident; Cirrhosis; COPD; CVA; Left sided nj1 weakness; Fibromyalgia; Hypertension; Hypothyroidism; Myocardial infarction; Seizures; - PSHx: 14:42 right big toe; nj1 - Immunization history:: Adult Immunizations unknown. - Social history:: Smoking status: . Screenin:40 [facility] ED Fall Risk Assessment (Adult) History of falling in the last 3 months, [facility] including since admission No falls in past 3 months (0 pts) Confusion or Disorientation No (0 pts) Intoxicated or Sedated No (0 pts) Impaired Gait Yes (1 pt) Mobility Assist Device Used Yes (1 pt) Altered Elimination No (0 pt) Score/Fall Risk Level 0 - 2 = Low Risk Oriented to surroundings, Maintained a safe environment, Hourly rounding (assess needs \T\ fall precautionary measures) done. Abuse screen: Denies threats or abuse. Denies injuries from another. Nutritional screening: No deficits noted. Tuberculosis screening: No symptoms or risk factors identified. Assessment: 14:30 General: Appears in no apparent distress. uncomfortable, Behavior is calm, cooperative, nj appropriate for age. Pain: Complains of pain in Generalized Pain currently is 10 out of 10 on a pain scale. 14:30 Neuro: Level of Consciousness is awake, alert, obeys commands, Oriented to person, nj place, time, situation. Cardiovascular: Patient's skin is warm and dry. Respiratory: Airway is patent Respiratory effort is even, unlabored. Musculoskeletal: Reports pain in Body. 14:52 Reassessment: No changes from previously documented assessment. helped back into bed. 1 17:30 Reassessment: Patient appears in no apparent distress at this time. No changes from [facility] previously documented assessment. Patient is alert, oriented x 3, equal unlabored respirations, skin warm/dry/pink. 19:30 Reassessment: Patient appears in no apparent distress at this time. Patient and/or nj1 family updated on plan of care and expected duration. Pain level reassessed. Patient is alert, oriented x 3, equal unlabored respirations, skin warm/dry/pink. Patient states feeling better. Patient states symptoms have improved. Vital Signs: 14:25 BP 103 / 67; Pulse 96; Resp 18; Temp 98.5(O); Pulse Ox 95% on R/A; nj1 16:38 BP 124 / 93; Pulse 93; Resp 18; Pulse Ox 96% on R/A; nj1 17:30 BP 127 / 82; Pulse 89; Resp 18; Pulse Ox 96% on R/A; nj1 19:11 BP 126 / 89; Pulse 82; Resp 18; Pulse Ox 94% on R/A; Pain 6/10; nj1 19:30 Pain 4/10; nj1 19:11 Pain Scale: Adult [facility] 19:30 Pain Scale: Adult [facility] ED Course: 14:30 Provided Education on: fall precautions.. nj1 14:30 Patient has correct armband on for positive identification. Bed in low position. Call [facility] light in reach. Side rails up X 1. 14:38 Patient arrived in ED. [facility] 14:39 Velia Morales RN is Primary Nurse. nj1 14:41 Polo Rudolph DO is Attending Physician. ms3 14:42 Triage completed. nj1 14:43 Arm band placed on. nj1 15:06 Mejia Jean PA is PHCP. 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 16:22 US Extremity Venous W Compression [place] In Process Unspecified. EDMS 19:30 Dressings: Kerlix X 2; right foot and left foot non-adherent dressing x 1 right foot nj1 and left foot Triple abx ointment. 19:52 No provider procedures requiring assistance completed. IV discontinued, intact, nj1 bleeding controlled. Administered Medications: 15:36 Drug: NS 0.9% IV 500 ml Route: IV; Rate: 500 ml/hr; Site: right antecubital; nj1 16:15 Follow up: Response: No adverse reaction; IV Status: Completed infusion; IV Intake: nj1 500ml 15:38 Drug: Ketorolac IVP 15 mg Route: IVP; Site: right antecubital; nj1 16:20 Follow up: Response: No adverse reaction; Pain is unchanged, physician notified nj1 16:15 Drug: NS 0.9% IV 500 ml Route: IV; Rate: 125 ml/hr; Site: right antecubital; nj1 19:42 Follow up: Response: No adverse reaction; IV Status: Completed infusion; IV Intake: nj1 500ml 16:26 Drug: Potassium PO Effervescent Tablet 50 mEq Route: PO; nj1 16:38 Follow up: Response: No adverse reaction nj1 17:07 Drug: Acetaminophen PO 1000 mg Route: PO; nj1 19:11 Follow up: Response: No adverse reaction; Pain is decreased nj1 19:10 Drug: Rocephin IV 1 grams Route: IV; Rate: calculated rate; Site: right antecubital; nj1 19:42 Follow up: Response: No adverse reaction; IV Status: Completed infusion; IV Intake: [id number] Medication: 19:54 VIS not applicable for this client. nj1 Intake: 16:15 IV: 500ml; Total: 500ml. nj1 19:42 IV: 50ml; Total: 550ml. nj1 19:42 IV: 500ml; Total: 1050ml. nj1 Outcome: 19:01 Discharge ordered by . cp 19:30 Discharged to home ambulatory. nj1 19:30 Condition: stable 19:30 Discharge instructions given to patient, Instructed on discharge instructions, follow up and referral plans. medication usage, Demonstrated understanding of instructions, follow-up care, medications, Prescriptions given X x5 19:58 Patient left the ED. [facility] Signatures: Dispatcher [employer] EDMS Mejia Jean PA PA cp Lewis, Lynsay, AZIZA RN ll1 Polo Rudolph DO DO ms3 Velia Morales RN RN nj Corrections: (The following items were deleted from the chart) 16:47 16:30 Provided Education on: fall precautions.. [place] [address] 16:47 16:30 Patient has correct armband on for positive identification. Bed in low position. nj1 Call light in reach. Side rails up X 1. [facility] 19:52 19:11 Pulse 82bpm; Resp 18bpm; Pulse Ox 94% RA; Pain 6/10, Adult; [place] [address]
[2023-01-05 20:05] VITALS: BP 126/89; O2SAT 94
--- NOTE | 2023-01-06 18:52 | EKG ---
Test Date: 2023-01-05 Test Time: 15:53:05 Package Line Operator: NIKO MEASUREMENT RESULTS: Intervals: Rate: 86 WY: 156 QRSD: 98 QT: 416 QTc: 497 D[place]: P: 75 WY: 156 QRS: 19 T: 74 INTERPRETIVE STATEMENTS: Normal sinus rhythm Cannot rule out Anterior infarct, age undetermined Abnormal ECG Compared to ECG 11/28/2022 18:14:20 Myocardial infarct finding now present Ventricular premature complex(es) no longer present Electronically Signed On 01-06-23 18:48:38 CDT by Andrew Upton
== END 2023-01-05 19:58 | disposition home or self-care (01) ==
LOC: ER 14:27
DX: N39.0 Urinary tract infection, site not specified (principal); G89.29 Other chronic pain; F14.90 Cocaine use, unspecified, uncomplicated; Z88.0 Allergy status to penicillin
CPT/HCPCS: 93005; 85025; 81001; 80048; 36415; 83735; 82550; 85610; 84484; 80307; 93970; J7040; J0696; 96361; 96365; 96375; 99284

== ENCOUNTER 2023-04-04 15:03 | Inpatient (IN) | payer OTHER ==
--- OUTSIDE RECORDS SUMMARY | 2023-04-04 15:09 | XMS REPORT | Continuity of Care Document ---
:1960 Author Organization [facility] t Address [address] [place] [address] Care Team Providers Name Role Phone AL AGUILAR Primary Care Physician Unavailable MAILE FORREST Attending Clinician Unavailable Lilian Mahajan MD Attending Clinician Mihai Villalba MD Attending Clinician Jeffery Irizarry MD Attending Clinician JEFFERY IRIZARRY Attending Clinician Unavailable TAVO VIZCAINO Attending Clinician Unavailable Doctor Unassigned, [place] Attending Clinician Unavailable Al Aguilar MD Attending Clinician LILIAN MAHAJAN Admitting Clinician Unavailable JEFFERY IRIZARRY Admitting Clinician Unavailable Payers Payer Name Policy Type Policy Number Effective Date Expiration Date Danielle koch [facility] STAR [id number] 2021 00:00:00 [facility] ST[facility] [id number] 2016 00:00:00 PLUS Problems Condition Condition Condition [...] 7-26 it y of on on 00:00: [place] 00 Medical Branch Obesity Obesity Disease Active Univers (BMI (BMI 5-25 ity of 30-39.9) 30-39.9) 00:00: [place] 00 Medical Branch Osteomyeli Osteomyeli Disease Active U nivers tis tis 5-24 ity of 00:00: [place] [facility] Positive Positive Disease Active 2015-06 Unive rs serology serology 1-15 ity of for for 00:00: [place] syphilis syphilis 00 Medica l Branch 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 1-15 it y of ve ve 00:00: [place] 00 Medical Branch Trichomoni Trichomoni Disease Active 2015-06 U nivers asis asis 0-26 ity of 00:00: [place] 00 Medical Branch Tobacco Tobacco Disease Active [...] myelopathy myelopathy 5-01 Rain kes 00:00: Medical Center Severe Severe Disease Active [facility] stenosis stenosis 00:00: Medica l of spine of spine 00 Center Weakness Weakness Disease Active [facility] 00[facility] Center Encephalop Encephalop Disease Active C HI [...] of most most 00:00: [place] recent recent Medical episode episode Branch (or (or current) current) depressed, depressed, severe, severe, without without mention of mention of psychotic psychotic behavior behavior HLD HLD Disease Active Univers (hyperlipi (hyperlipi it y of demia) demia) [facility] Acquired Acquired Disease Active Unive rs hypothyroi hypothyroi it y of dism dism [facility] Hypertensi Hypertensi Disease Active C [facility] on on [facility] Thyroid Thyroid Disease Active [facility] disease disease [facility] Coronary Coronary Disease Active [facility] S t artery artery [facility] HI HI Disease Active [facility] (myocardia (myocardia Rain kes l l Medical infarction infarction Ce nter ) ) Seizures Seizures Disease Active [facility] S t [facility] Stroke Stroke Disease Active Overview: [facility] of this Medical note Center might be different from the original. x2 Fibromyalg Fibromyalg Disease Active C HI [facility] ia ia [facility] Allergies, Adverse Reactions, Alerts Allergy Allergy Status Severity Reaction(s) Onset Inactive Treating Comm ents Source Name Type Date Date Clinician PENICILL Allergy Active High Anaphylaxis [facility] 6[facility]30 [facility] 00:00: Medical 00 [place] Penicill Drug Active Anaphylaxis, [facility] ins Allergy Rash 6-30 [facility] 00:00: Medical 00 [place] Penicill Propensi Active Rash Univer s ins ty to 8-29 ity of adverse 00:00: [place] reaction 00 [facility] PENICILL Drug Active Rash Univers INS Class 8-29 ity of 00:00: [place] 00 [facility] Penicill Propensi Active Rash Univer s ins ty to 8-29 ity of adverse 00:00: [place] reaction 00 [facility] Family History Family Member Diagnosis Comments Start Date Stop Date Source Natural mother Heart disease [facility] Natural mother Stroke [facility] Social History Social Habit Start Date Stop Date Quantity Comments Source History of tobacco Cigarette Smoker University of use [facility] Tobacco use and 2015-08-01 2015-08-01 Smokeless tobacco Un iversity of exposure 00:00:00 00:00:00 non-user [facility] Cigarette 2015-08-01 2015-08-01 University of pack-years 00:00:00 00:00:[address] [facility] Tobacco Comment 2014-12-26 2014-12-26 smokes 6 cig/day Uni versity of 00:00:00 00:00:[address] [facility] Alcohol intake 2014-10-06 2014-10-06 [facility]er [facility] 00:[facility] 00:00:00 of alcohol [facility] (finding) Cigarettes smoked 2012-12-24 2012-12-[address] [facility] current (pack per 00:00:00 00:00:00 Medical Center day) - Reported Alcohol Comment 2012-12-06 2012-12-06 EtOH abuse, no [facility] 00:[facility] 00:00:00 h/o withdrawal Medical Ce nter seizures Sex Assigned At [address] [facility] 00:00:00 00:00:00 Medical Center Smoking Status Start Date Stop Date Source Smokes tobacco daily 2015-08-01 00:00:00 [facility] Medications Ordered Filled Start Stop Current Ordering Indication Dosage Frequency Signature Comments Components Source Medication Medication Date Date Medication? Clinician (SIG) Name Name aspirin 81 2022-0 Yes 81mg Take 1 [facility] t MG chewable 6-22 tablet (81 Rain kes tablet 13:31: mg total) Medica l 04 by mouth. [place] levothyroxi 0 Yes 75ug Take [address] ne 6-22 tablet (75 [facility] (SYNTHROID, 13:31: mcg total) Medical LEVOTHROID) 04 by mouth Cent er 75 MCG Every tablet morning on an empty stomach. gabapentin 2022-0 Yes 600mg Q.[id number] Take [address] (NEURONTIN) 6-22 [id number] tablet [facility]ukes 600 MG 13:31: 3D (600 [...] I St -acetaminop 6-22 tablet by Tay dumont (NORCO 13:31: mouth Medica l 10-325) [...] an empty stomach. gabapentin 2022-0 Yes 600mg Q.[id number] Take [address] (NEURONTIN) 6-22 [id number] tablet [facility] 600 MG 13:31: 3D (600 [...] Center mouth 2 (two) times daily. amLODIPine 3-0 Yes 10mg QD Take 1 [facility]I [facility] t (NORVASC) 6-22 tablet (10 Luke s 10 MG 13:31: mg total) Medical tablet 04 by mouth Center daily. lisinopriL 3-0 Yes 40mg QD Take 1 CHI S [...] I St -acetaminop 6-22 tablet by Tay dumont (NORCO 13:31: mouth Medica l 10-325) [...] an empty stomach. gabapentin 3-0 Yes 600mg Q.[id number] Take [address] (NEURONTIN) 6-22 [id number] tablet [facility]ukes 600 MG 13:31: 3D (600 mg Medical tablet 04 total) by Center mouth 3 (three) times daily. cyclobenzap 2023-0 Yes 30mg Take [address] [facility] [address] rine [...] tablet morning on an empty stomach. gabapentin 2023-0 Yes 600mg Q.[id number] Take [address] (NEURONTIN) 6-22 [id number] tablet [facility]ukes 600 MG 13:31: 3D (600 mg Medical tablet 04 total) by Center mouth 3 (three) times daily. cyclobenzap 2023-0 Yes 30mg Take [address] [facility] rine [...] Anxiety. Max Daily Amount: 1.5 mg HYDROcodone 3-0 Yes 1{tbl} Take [address] -acetaminop 6-22 tablet by Tay dumont (NORCO 13:31: mouth Medica l 10-325) 04 every 6 Center 10-325 mg (six) per tablet hours as needed for Pain. Max Daily Amount: 4 tablets meloxicam 2023-0 Yes 7.5mg Q.5D Take 1 [facility]I [facility] t (MOBIC) 7.5 6-22 tablet [facility] MG tablet 13:31: (7.5 mg Medic al 04 total) by Center mouth 2 (two) times daily. acetaminoph 2023-0 2023- No 1{tbl} Take [address] en-codeine 6-21 07-01 tablet by Tay es (TYLENOL 00:00: 23:59 mouth Medical #3) 300-30 00 :00 every 8 Center mg per (eight) tablet hours as needed for up to 10 days. Max Daily Amount: 3 tablets acetaminoph 3-0 2023- No 1{tbl} Take [address] en-codeine 11-27- tablet by Tay es (TYLENOL 00:00: 23:59 mouth Medical #3) 300-30 00 :00 every 8 Center mg per (eight) tablet hours as needed for up to 10 days. Max Daily Amount: 3 tablets acetaminoph 2022-0 2023- No 1{tbl} Take [address] en-codeine 11-27- tablet by Tay es (TYLENOL 00:00: 23:59 mouth Medical #3) 300-30 00 :00 every 8 Center mg per (eight) tablet hours as needed for up to 10 days. Max Daily Amount: 3 tablets acetaminoph 2022-0 3- No 1{tbl} Take [address] en-codeine 11-27 tablet by Tay es (TYLENOL 00:00: 23:59 mouth Medical #3) 300-30 00 :00 every 8 Center mg per (eight) tablet hours as needed for up to 10 days. Max Daily Amount: 3 tablets clindamycin 3-0 2023- No 300mg Q.[id number] Take [address] (CLEOCIN) 11-27- [id number] capsule [facility]ukes 300 MG 00:00: 23:59 3D (300 mg Medical capsule 00 :00 total) by Center mouth 3 (three) times daily for 5 days. clindamycin 3-0 2023- No 300mg Q.[id number] Take [address] (CLEOCIN) 11-27- [id number] capsule [facility]ukes 300 MG 00:00: 23:59 3D (300 mg Medical capsule 00 :00 total) by Center mouth 3 (three) times daily for 5 days. clindamycin 2023-0 2023- No 300mg Q.[id number] Take [address] (CLEOCIN) 11-27- [id number] capsule [facility]ukes 300 MG 00:00: 23:59 3D (300 mg Medical capsule 00 :00 total) by Center mouth 3 (three) times daily for 5 days. clindamycin 2022-0 3- No 300mg Q.[id number] Take [address] (CLEOCIN) 6-21 06-26 [id number] capsule [facility] 300 MG 00:00: 23:59 3D (300 mg Medical capsule 00 :00 total) by Center mouth 3 (three) times daily for 5 days. gabapentin 2018-06 Yes [id number] 400mg Take 1 Univers (NEURONTIN) 2-14 capsule by it y of 400 mg 00:00: mouth 3 [place] capsule 00 (three) Medical times Branch daily. cyclobenzap 2018-06 Yes [id number] 10mg Take 1 Univers rine 10 mg 2-14 tablet by ity of tablet 00:00: mouth 3 [place] 00 (three) Medical times Branch daily. amLODIPine Yes [id number] 5mg Take 1 U nivers 5 mg tablet 7-26 tablet by ity of 00:00: mouth [place] 00 daily. Medical Branch cyclobenzap Yes [id number] 10mg Take 1 Univers rine 10 mg 7-26 tablet by ity of tablet 00:00: mouth 3 (three) Medical times Branch daily as needed for Muscle Spasms. gabapentin Yes [id number] 400mg Take 1 Univers 400 mg 7-26 capsule by ity of capsule 00:00: mouth 3 [place] 00 (three) Medical times Branch daily. amLODIPine Yes [id number] 5mg Take 1 U nivers 5 mg tablet 7-26 tablet by ity of 00:00: mouth [place] 00 daily. Medical Branch cyclobenzap Yes [id number] 10mg Take 1 Univers rine 10 mg 7-26 tablet by ity of tablet 00:00: mouth 3 (three) Medical times Branch daily as needed for Muscle Spasms. gabapentin Yes [id number] 400mg Take 1 Univers 400 mg 7-26 capsule by ity of capsule 00:00: mouth 3 [place] 00 (three) Medical times Branch daily. amLODIPine Yes [id number] 5mg Take 1 U nivers 5 mg tablet 7-26 tablet by ity of 00:00: mouth [place] 00 daily. Medical Branch amLODIPine 2018- Yes [id number] 5mg Take 1 U nivers 5 mg tablet 7-26 tablet by ity of 00:00: mouth [place] 00 daily. Medical Branch cyclobenzap 2019-0 Yes [id number] 10mg Take 1 Univers rine 10 mg 7-26 tablet by ity of tablet 00:00: mouth 3 00 (three) Medical times Branch daily as needed for Muscle Spasms. gabapentin 2018- Yes [id number] 400mg Take 1 Univers 400 mg 7-26 capsule by ity of capsule 00:00: mouth 3 00 (three) Medical times Branch daily. LEVOTHYROXI [id number] Yes TAKE 1 Univ ers NE 75 [...] [place] 00 EVERY DAY Medical Branch LEVOTHYROXI 2017-0 [...] [place] 00 EVERY DAY Medical Branch LEVOTHYROXI 2017-0 [...] [place] 00 EVERY DAY Medical Branch LISINOPRIL 2018-0 Yes TAKE 1 Unive rs 40 mg 5-07 TABLET BY ity of tablet 00:00: [facility] 00 EVERY DAY Medical Branch LEVOTHYROXI 2018-0 Yes TAKE 1 Univ ers NE 75 mcg 5-07 TABLET BY ity o f tablet 00:00: [facility] 00 EVERY Medical MORNING Branch LEVETIRACET 2018-0 Yes TAKE 1 Univ ers AM 500 mg 5-07 TABLET BY ity o f tablet 00:00: [facility] 00 TWICE A Medical DAY Branch LISINOPRIL 2018-0 Yes TAKE 1 Unive rs 40 mg 5-07 TABLET BY ity of tablet 00:00: [facility] 00 EVERY DAY Medical Branch AMLODIPINE 2018-0 2019- No TAKE 1 Univ ers 5 mg tablet 5-07 07-26 TABLET BY it y of 00:00: 00:00 MOUTH [place] 00 :00 EVERY DAY Medical Branch METOPROLOL 2018-0 Yes TAKE 1 Unive rs TARTRATE 50 3-12 TABLET BY ity of mg tablet 00:00: [facility] 00 TWICE A Medical DAY Branch METOPROLOL 2018-0 2019- No TAKE 1 Univ ers TARTRATE 50 3-12 07-26 TABLET BY it y of mg tablet 00:00: 00:00 [facility] 00 :00 TWICE A Medical DAY Branch GABAPENTIN 2017- Yes TAKE 3 Unive rs 300 mg 0-27 CAPSULES ity of capsule 00:00: BY MOUTH [place] 00 THREE Medical TIMES Branch DAILY. GABAPENTIN 2017- 2019- No TAKE 3 Univ ers 300 mg 0-27 07-26 CAPSULES ity of capsule 00:00: 00:00 BY MOUTH [place] 00 :00 THREE Medical TIMES Branch DAILY. Walker 2017-0 Yes [id number] Use as Unive rs (ULTRA-LIGH 6-27 directed ity of T ROLLATOR) 00:00: [place] [address] Medical Branch Walker 2017-0 Yes [id number] Use as Unive rs (ULTRA-LIGH 6-27 directed ity of T ROLLATOR) 00:00: [place] [address] Medical Branch Walker 2017-0 Yes [id number] Use as Unive rs (ULTRA-LIGH 6-27 directed ity of T ROLLATOR) 00:00: [place] [address] Medical Branch Walker 2017-0 Yes [id number] Use as Unive rs (ULTRA-LIGH 6-27 directed ity of T ROLLATOR) 00:00: [place] [address] Medical Branch Walker 2017-0 Yes [id number] Use as Unive rs (ULTRA-LIGH 6-27 directed ity of T ROLLATOR) 00:00: [place] [address] Medical Branch metroNIDAZO 2017-0 Yes 500mg Take [...] ity o f tablet 00:00: mouth 2 [place] 00 (two) Medical times Branch daily. aspirin 81 Yes 81mg Take 81 mg U nivers mg chewable 6-09 by mouth ity of tablet 20:00: daily. [place] [address] Medical Branch aspirin 81 2017- Yes 81mg Take 81 mg U nivers mg chewable 6-09 by mouth ity of tablet 20:00: daily. [place] [address] Medical Branch aspirin 81 Yes 81mg Take 81 mg U nivers mg chewable 6-09 by mouth ity of tablet 20:00: daily. [place] [address] Medical Branch aspirin 81 2017 Yes 81mg Take 81 mg U nivers mg chewable 6-09 by mouth ity of tablet 20:00: daily. [place] [address] Medical Branch aspirin 81 2017- Yes 81mg Take 81 mg U nivers mg chewable 6-09 by mouth ity of tablet 15:00: daily. [place] [address] Medical Branch KCL 10 mEq Yes [id number] 10meq Take 1 Univers tablet 6-09 tablet by ity of 00:00: mouth [place] 00 daily. Medical Branch KCL 10 mEq Yes [id number] 10meq Take 1 Univers tablet 6-09 tablet by ity of 00:00: mouth [place] 00 daily. Medical Branch KCL 10 mEq Yes [id number] 10meq Take 1 Univers tablet 6-09 tablet by ity of 00:00: mouth [place] 00 daily. Medical Branch KCL 10 mEq Yes [id number] 10meq Take 1 Univers tablet 6-09 tablet by ity of 00:00: mouth [place] 00 daily. Medical Branch KCL 10 mEq Yes [id number] 10meq Take 1 Univers tablet 6-09 tablet [...] times Medical daily. Branch acetaminoph 2015-06 Yes [id number] 1{tbl} Take 1 Univers en-codeine 1-17 07 tablet by ity of (TYLENOL 00:00: mouth [place] #3) 300-30 00 every 6 Medica l mg tablet (six) Branch hours as needed for Pain (scale 7-10) or Pain unrelieved by non-narcot ic analgesics . acetaminoph 2015-06 2019- No [id number] 1{tbl} Take 1 Univers en-codeine 1-17 07-26 07 tablet by ity of (TYLENOL 00:00: 00:00 mouth [place] #3) 300-30 00 :00 every 6 Medica [...] needed for Muscle Spasms. lactulose Yes 20g Q.[id number] Take [address] (CHRONULAC) 5-14 [id number] mLs (20 g [facility] 20 gram/30 00:00: 3D total) by Me dical mL solution 00 mouth 3 Cente r (three) times daily. lactulose Yes 20g Q.[id number] Take [address] (CHRONULAC) 5-14 [id number] mLs (20 g [facility] 20 gram/30 00:00: 3D total) by Me dical mL solution 00 mouth 3 Cente r (three) times daily. lactulose Yes 20g Q.[id number] Take [address] (CHRONULAC) 5-14 [id number] mLs (20 g [facility] 20 gram/30 00:00: 3D total) by Me dical mL solution 00 mouth 3 Cente r (three) times daily. lactulose Yes 20g Q.[id number] Take [address] (CHRONULAC) 5-14 [id number] mLs (20 g [facility] 20 gram/30 00:00: 3D total) by Me dical mL solution 00 mouth 3 Cente r (three) times daily. Immunizations Ordered Filled Date Status Comments Source Immunization Name Immunization Name TDAP (ADACEL) 2016-04-25 Completed University of VACCINE 00:00:[address] [facility] TDAP (ADACEL) 2016-04-25 Completed University of VACCINE 00:00:[address] [facility] TDAP (ADACEL) 2016-04-25 Completed University of VACCINE 00:00:[address] [facility] TDAP (ADACEL) 2016-04-25 Completed University of VACCINE 00:00:[address] [facility] TDAP (ADACEL) 2016-04-25 Completed University of VACCINE 00:00:[address] [facility] Influenza Virus 2016-04-01 Completed Universit y of Vaccine Quad IM 00:00:00 [place] Med ical Multi-dose 6+ MO Branch Influenza Virus 2016-04-01 Completed Universit y of Vaccine [place] IM 00:00:00 [place] Med ical Multi-dose 6+ MO Branch Influenza Virus 2016-04-01 Completed Universit y of Vaccine [place] IM 00:00:00 [place] Med ical Multi-dose 6+ MO Branch Influenza Virus 2016-04-01 Completed Universit y of Vaccine [place] IM 00:00:00 [place] Med ical Multi-dose 6+ MO Branch Influenza Virus 2016-04-01 Completed Universit y of Vaccine [place] IM 00:00:00 [place] Med ical Multi-dose 6+ MO Branch Pneumococcal 2015-08-24 Completed University o f Polysaccharide, 00:00:00 [place] Med ical PPSV23 (PNEUMOVAX) Branch Influenza Virus 2015-08-24 Completed Universit y of Vaccine [place] IM 3+ 00:00:00 [facility] Pneumococcal 2015-08-24 Completed University o f Polysaccharide, 00:00:00 [place] Med ical PPSV23 (PNEUMOVAX) Branch Influenza Virus 2015-08-24 Completed Universit y of Vaccine [facility] IM 3+ 00:00:00 [facility] Pneumococcal 2015-08-24 Completed University o f Polysaccharide, 00:00:00 [place] Med ical PPSV23 (PNEUMOVAX) Branch Influenza Virus 2015-08-24 Completed Universit y of Vaccine [facility] IM 3+ 00:00:00 [facility] Pneumococcal 2015-08-24 Completed University o f Polysaccharide, 00:00:00 [place] Med ical PPSV23 (PNEUMOVAX) Branch Influenza Virus 2015-08-24 Completed Universit y of Vaccine [facility] IM 3+ 00:00:00 [facility] Pneumococcal 2015-08-24 Completed University o f Polysaccharide, 00:00:00 [place] Med ical PPSV23 (PNEUMOVAX) Branch Influenza Virus 2015-08-24 Completed Universit y of Vaccine [facility] IM 3+ 00:00:00 [facility] HEPATITIS A 2014-10-06 Completed University of 00:00:[address] [facility] Hepatitis A 2014-10-[address] [facility] 00:00:00 [facility] Hepatitis A 2014-10-[address] [facility] 00:00:00 [facility] Hepatitis A Unknown Completed [facility] Hepatitis A Unknown Completed [facility] Vital Signs Vital Name Observation Time Observation Value Comments Source Systolic blood 2019-01-01 13:32:00 142 mm[Hg] Univer sity of pressure [facility] Diastolic blood 2019-01-01 13:32:00 100 mm[Hg] [facility] Heart rate 2019-01-01 13:32:00 86 /min [facility] Body temperature 2019-01-01 13:32:00 36.44 [facility] Body height 2019-01-01 13:32:00 165.1 cm [facility] Body weight 2019-01-01 13:32:00 81.647 kg [facility] BMI 2019-01-01 13:32:00 29.95 kg/m2 [facility] Systolic blood 2022-11-27 11:23:00 104 mm[Hg] [facility] Diastolic blood 2022-11-27 11:23:00 72 mm[Hg] [facility] Heart rate 2022-11-27 11:23:00 77 /min [facility] Body temperature 2022-11-27 11:23:00 36.44 Eryn [facility] Respiratory rate 2022-11-27 11:23:00 18 /min [facility] Oxygen saturation in 2022-11-27 11:23:00 95 /min [facility] Arterial blood by Medical Ce nter Pulse oximetry Procedures Procedure Date / Time Performing Clinician Source Performed CBC W/PLT COUNT & AUTO 2022-11-27 05:08:00 Mihai Villalba [facility] COMPREHENSIVE METABOLIC 2022-11-27 05:08:00 [facility] CBC W/PLT COUNT & AUTO 2022-11-27 05:08:00 Mihai Villalba [facility] Center HEPATITIS B PCR, 2022-11-26 18:13:00 [facility] PHOSPHATIDYLETHANOL, 2022-11-26 10:31:00 Landen Dupree [facility] BLOOD [facility] HEPATITIS C PCR, 2022-11-26 10:31:00 [facility] [place] ALPHA FETOPROTEIN (AFP), 2022-11-26 10:31:00 Landen Dupree [facility] TUMOR MARKER [facility] HEPATITIS A ANTIBODY, IGG 2022-11-26 10:31:00 Landen Dupree I [facility] HEPATITIS B CORE 2022-11-26 10:31:00 Landen Dupree [facility] ANTIBODY, TOTAL [facility] HEPATITIS B SURFACE 2022-11-26 10:31:00 Landen Dupree [facility] ANTIGEN [facility] HEPATITIS B SURFACE 2022-11-26 10:31:00 [facility]TIBODY [facility] IRON, TIBC, % SAT. 2022-11-26 10:31:00 [facility] FERRITIN 2022-11-26 10:31:00 [facility] IMMUNOGLOBULIN G (IGG) 2022-11-26 10:31:00 [facility] US ABDOMEN COMPLETE 2022-11-26 07:16:44 [facility] BLOOD CULTURE 2022-11-26 04:40:00 [facility] BLOOD CULTURE 2022-11-26 04:33:00 [facility] CBC (HEMOGRAM ONLY) 2022-11-26 04:33:00 [facility]OLIC 2022-11-26 04:33:00 [facility] MAGNESIUM 2022-11-26 04:33:00 [facility] PROTHROMBIN TIME/INR 2022-11-25 23:54:00 [facility] REFERRAL- 2022-04-07 05:01:00 Doctor Gomez, [facility] REQUEST/RESPONSE [place] [facility] AUTHORIZATION FOR RELEASE 2019-02-18 05:01:00 Doctor Gomez, [facility] [place] [facility] COMP. METABOLIC PANEL 2019-01-01 13:52:00 Al Aguilar [facility] ([id number]) Medical Branch LIPID PANEL ([id number])(TOTAL 2019-01-01 13:52:00 Al Aguilar [facility] CHOLESTEROL, Medical Branch TRIGLYCERIDES, HDL) CBC WITH DIFFERENTIAL 2019-01-01 13:52:00 Al Aguilar [facility] Medical Branch ASSIGNMENT OF BENEFITS 2019-01-01 13:15:46 Doctor Gomez, [facility] [place] [facility] Plan of Care Planned Activity Planned Date [...] or Tdap)] Future Scheduled 2023-02-07 Influenza Vaccine (Season [facility] Test 00:00:00 Ended) [code = Influenza Med ical Center Vaccine (Season Ended)] Future Scheduled 2023-02-07 Influenza Vaccine (#1) [facility] 00:[facility]00 [code = Influenza Vaccine Me dical Center (#1)] Future Scheduled 2023-02-07 Influenza Vaccine (#1) [facility] Test 00:00:00 [code = Influenza Vaccine Me dical Center (#1)] Future Scheduled 2023-02-07 Influenza Vaccine (#1) [facility] Test 00:00:00 [code = Influenza Vaccine Me dical Center (#1)] Future Scheduled 2022-06-[address] [...] [facility] Test 00:00:00 [code = [id number]] Medical Ce nter Future Scheduled 2017-10-06 Lipid panel (procedure) [facility] Test 00:00:00 [code = [id number]] Medical Ce nter Future Scheduled 2017-10-06 Lipid panel (procedure) [facility] Test 00:00:00 [code = [id number]] Medical Ce nter Future Scheduled 2017-10-06 Lipid panel (procedure) [facility] Test 00:00:00 [code = [id number]] Medical Ce nter Future Scheduled 2010 SHINGLES VACCINES ([address] [facility] Test 00:00:00 2) [facility] Future Scheduled 2010 SHINGLES VACCINES ([address] [facility] Test 00:00:00 2) [code = SHINGLES [facility] VACCINES (1 of 2)] Future Scheduled 2010 SHINGLES VACCINES ([address] [facility] Test 00:00:00 2) [facility] ([facility] of 2)] Future Scheduled 2010 SHINGLES VACCINES ([address] [facility] Test 00:00:00 2) [facility] Future Scheduled 1981 Screening for malignant [facility] 00:00:00 neoplasm of cervix Medical C enter (procedure) [code = 182909851] Future Scheduled 1981 Screening for malignant [facility] 00:00:00 neoplasm of cervix Medical C enter (procedure) [code = 519192778] Future Scheduled 1981 Screening for malignant [facility] 00:00:00 neoplasm of cervix Medical C enter (procedure) [code = 918478890] Future Scheduled 1981 Screening for malignant [facility] 00:00:00 neoplasm of cervix Medical C enter (procedure) [code = 475251844] Future Scheduled [address] [facility] virus screening [facility] (procedure) [code = 811294475] Future Scheduled [address] [facility] 00:00:00 virus screening [facility] (procedure) [code = 132431737] Future Scheduled [address] [facility] 00:00:00 virus screening [facility] (procedure) [code = 281282636] Future Scheduled [address] [facility] 00:00:00 Counseling and Screening Med ical Center (12+) [code = Tobacco Cessation Counseling and Screening (12+)] Future Scheduled [address] [facility] 00:00:00 Counseling and Screening Med ical Center (12+) [code = Tobacco Cessation Counseling and Screening (12+)] Future Scheduled [address] [facility] 00:00:00 Counseling and Screening Med ical Center (12+) [code = Tobacco Cessation Counseling and Screening (12+)] Future Scheduled [address] [facility] 00:00:00 Counseling and Screening Med ical Center (12+) [code = Tobacco Cessation Counseling [...] breast Medical C enter (procedure) [code = 118092962] Future Scheduled 1960 CT Colonography (combo) [facility] 00:00:00 [code = CT Colonography [facility] (combo)] Future Scheduled 1960 Screening for malignant [facility] 00:00:00 neoplasm of colon Medical Ce nter (procedure) [code = 470397013] Future Scheduled 1960 Screening for malignant [facility] 00:00:00 neoplasm of colon Medical Ce nter (procedure) [code = 034029252] Future Scheduled 1960 Screening for malignant [facility] 00:00:00 neoplasm of colon Medical Ce nter (procedure) [code = 947411325] Future Scheduled 1960 Screening for malignant [facility] 00:00:00 neoplasm of colon Medical Ce nter (procedure) [code = 152497112] Future Scheduled 1960 Sigmoidoscopy [code = [facility]] Medical Cente r Future Scheduled 1960 Screening for malignant [facility] 00:00:00 neoplasm of breast Medical C enter (procedure) [code = 567935940] Future Scheduled 1960 CT Colonography (combo) [facility] 00:00:00 [code = CT Colonography [facility] (combo)] Future Scheduled 1960 Screening for malignant [facility] 00:00:00 neoplasm of colon Medical Ce nter (procedure) [code = 651100552] Future Scheduled 1960 Screening for malignant [facility] 00:00:00 neoplasm of colon Medical Ce nter (procedure) [code = 084669567] Future Scheduled 1960 Screening for malignant [facility] 00:00:00 neoplasm of colon Medical Ce nter (procedure) [code = 286679192] Future Scheduled 1960 Screening for malignant [facility] 00:00:00 neoplasm of colon Medical Ce nter (procedure) [code = 977900614] Future Scheduled 1960 Sigmoidoscopy [code = [facility]] Medical Cente r Future Scheduled 1960 Screening for malignant [facility] 00:00:00 neoplasm of breast Medical C enter (procedure) [code = 120137517] Future Scheduled 1960 CT Colonography (combo) [facility] 00:00:00 [code = [facility] Future Scheduled 1960 Screening for malignant [facility] 00:00:00 neoplasm of colon Medical Ce nter (procedure) [code = 074396008] Future Scheduled 1960 Screening for malignant [facility] 00:00:00 neoplasm of colon Medical Ce nter (procedure) [code = 652645599] Future Scheduled 1960 Screening for malignant [facility] 00:00:00 neoplasm of colon Medical Ce nter (procedure) [code = 054545889] Future Scheduled 1960 Screening for malignant [facility] 00:00:00 neoplasm of colon Medical Ce nter (procedure) [code = 024837085] Future Scheduled 1960 Sigmoidoscopy [code = [facility]] Medical Cente r Future Scheduled 1960 Screening for malignant [facility] 00:00:00 neoplasm of breast Medical C enter (procedure) [code = 002151193] Future Scheduled 1960 CT Colonography (combo) [facility] 00:00:00 [code = CT Colonography [facility] (combo)] Future Scheduled 1960 Screening for malignant [facility] 00:00:00 neoplasm of colon Medical Ce nter (procedure) [code = 899961539] Future Scheduled 1960 Screening for malignant [facility] 00:00:00 neoplasm of colon Medical Ce nter (procedure) [code = 652335286] Future Scheduled 1960 Screening for malignant [facility] 00:00:00 neoplasm of colon Medical Ce nter (procedure) [code = 942007726] Future Scheduled 1960 Screening for malignant [facility] 00:00:00 neoplasm of colon Medical Ce nter (procedure) [code = 610139203] Future Scheduled 1960 Sigmoidoscopy [code = [facility]] Medical Cente r Encounters Start End Encounter Admission Attending Care Care Encounter Source Date/Time Date/Time Type Type Clinicians Facility Department ID 2022-11-26 Inpatient ER JORDYN FORREST [facility] [id number] [facility] 06:27:05 MAILE 2023-03-04 2023-03-04 Outpatient [facility] [id number] Rame[place] 12:21:03 12:21:03 [id number] F Errol 2023-01-03 2023-01-03 Outpatient [facility] [id number] Ramez 16:38:32 16:38:32 [id number] F Olar 2022-11-25 2022-11-27 Hospital ER Lilian Mahajan [facility] [id number] [facility] 19[facility]36[facility] 13:31:00 Encounter Mihai Villalbaf [facility] 2022-11-25 2022-11-27 Inpatient ER JUAN C [facility] [id number] [facility] 19:36:00 13:31:00 [facility] 2022-11-25 2022-11-27 [facility] Lilian Mahajan [facility] [id number] [facility] St 19:36:00 13:31:00 Encounter Mihai Villalba [facility] 2022-10-02 2022-10-02 Outpatient [facility] [id number] Ramez 09:05:54 09:05:54 [id number] Mj Errol 2022-09-05 2022-09-05 [facility] [id number] [facility] 14:00:00 14:00:00 [facility] 2022-07-24 2022-07-24 [facility] [id number] [facility] 13:15:00 13:15:00 [facility] 2022-06-26 2022-06-26 Outpatient [facility] [id number] Ramez 10:10:22 10:10:22 [id number] Mj Errol 2022-04-07 2022-04-07 Orders Doctor FLANNERY [id number] [facility] 00:00:00 00:00:00 Only Unassigned, TAYLOR 350.1.13.10 ity of [place] [facility] 4.2.7.2.686 Juno as [phone] [address] 2022-03-26 2022-03-26 Outpatient [facility] [id number] Ramez 10:47:27 10:47:27 [id number] F Errol 2019-02-18 2019-02-18 Orders Doctor PRUDENCIO [id number] [facility] 00:00:00 00:00:00 Only Unassigned, TAYLOR 350.1.13.10 [facility] [place] [facility] 4.2.7.2.686 Juno as [phone] [address] 2019-01-24 2019-01-24 Refill GoranRUST 1.2.840.114 [id number] [facility] 00:00:00 00:00:00 [facility] 350.1.13.10 [place]y of [place] 4.2.7.2.686 Juno as Professio [phone] [address] Office Building [facility] 2019-01-01 2019-01-01 Office AndoverRUST 1.2.840.114 [id number] [facility] 08:17:32 09:01:49 Visit [facility] 350.1.13.10 [facility] [place] 4.2.7.2.686 Juno as Professio [phone] [address] Office [facility] 2019-01-01 2019-01-01 Orders Doctor PRUDENCIO 1.2.840.114 [id number] [facility] 00:00:00 00:00:00 Only Unassigned, TAYLOR 350.1.13.10 ity [facility] [place] [facility] 4.2.7.2.686 Juno as [phone] [address] Results Test Description Test Time Test Comments Results Result Comments Source PHOSPHATIDYLETHANOL, BLOOD 2022-12-02 14:25:37 Test Item Value Reference Range Interpretation Comme nts PHOSPHATIDYLETHANOL (PETH) (test code = 8048374) See scanned report. BLOOD [id number] 06:00:57 Test Item Value Reference Range Interpretation Comments CULTURE (BEAKER) (test No growth in 5 days code = 1095) BLOOD [id number] 06:00:55 Test Item Value Reference Range Interpretation Comments CULTURE (BEAKER) (test No growth in 5 days code = 1095) HEPATITIS B PCR, [id number] 13:42:33 Test Item Value Reference Range Interpretation Comments HBV RESULT COMPONENT HBV DNA not detected HBV DNA not detected (BEAKER) (test code = 3800) HEPATITIS C PCR, [id number] 12:37:27 Test Item Value Reference Range Interpretation Comments HCV NUMERIC RESULT (BEAKER) 6396137 IU/mL <15 H (test code = 7770) COMPREHENSIVE METABOLIC [id number] 06:24:26 Test Item Value Reference Range Interpretation [...] not appl icable for dialysis patien ts [employer] ID - TEJA WCBC W/PLT COUNT & AUTO [id number] 05:34:25 Test Item Value Reference Range Interpretation [...] code = 2801) HEPATITIS B CORE ANTIBODY, [id number] 16:13:44 Test Item Value Reference Range Interpretation Comments HEPATITIS B CORE TOTAL ANTIBODY Reactive Nonreactive A (BEAKER) (test code = 497) [employer] - ADMINOperator ID - ADMINOperator ID - ADMINHEPATITIS A ANTIBODY, [id number] 14:44:39 Test Item Value Reference Range Interpretation Comments HEPATITIS A IGG ANTIBODY (BEAKER) Nonreactive Nonreactive (test code = 2797) [employer] ID - ADMINHEPATITIS B SURFACE [id number] 14:44:38 Test Item Value Reference Range Interpretation Comments HEPATITIS B SURFACE ANTIBODY 592.8 mIU/mL <8.0 H (BEAKER) (test code = 647) [employer] ID - ADMINALPHA FETOPROTEIN (AFP), TUMOR [id number] 14:44:38 Test Item Value Reference Range Interpretation Comments ALPHA-FETOPROTEIN (BEAKER) (test 3.8 ng/mL <10.0 code = 1094) [employer] ID - ADMINHEPATITIS B SURFACE [id number] 14:44:37 Test Item Value Reference Range Interpretation [...] 22 % 20-55 (test code = 2590) [employer] - ADMINIMMUNOGLOBULIN G (IGG)2022-11-26 12:39:58 Test Item Value Reference Range Interpretation Comments IMMUNOGLOBULIN G (IGG) (BEAKER) 1975 mg/dL 540-1822 H (test code = 427) [employer] ID - [id number] 12:06:28 Test Item Value Reference Range Interpretation Comments FERRITIN (YUNIOR) (test code = 142.93 ng/mL 5.00-275.00 361) [employer] ID - lmUS ABDOMEN [id number] 09:43:15 [facility] 1960 Sex: [...] By: Ion Douglas MD11/26/2022 09:45 CDTWorkstation Name: [id number] COMPREHENSIVE METABOLIC [id number] 09:34:36 Test Item Value Reference Range Interpretation [...] not appl icable for dialysis patien ts [employer] ID - [id number] 09:34:36 Test Item Value Reference Range Interpretation Comments MAGNESIUM (BEAKER) (test code = 1.9 mg/dL 1.6-2.6 627) [employer] ID - ADMINCBC (HEMOGRAM ONLY)2022-11-26 05:01:00 Test [...] 0-0 (BEAKER) (test code = 413) PROTHROMBIN [id number] 00:24:41 Test Item Value Reference Range Interpretation Comments PROTIME (BEAKER) (test code = 15.5 seconds 11.9-14.2 H 759) INR (BEAKER) (test code = 370) 1.31 <=5.90 RECOMMENDED COUMADIN/WARFARIN INR THERAPY RANGESSTANDARD DOSE: 2.0 - 3.0 Includes: PROPHYLAXIS for venous thrombosis, systemic embolization; TREATMENT for venous thrombosis and/or pulmonary embolus.HIGH RISK: Target INR is 2.5-3.5 for patients with mechanical heart valves.TSH, THIRD [id number] 04:53:46 Test Item Value Reference Range Interpretation Comments TSH, THIRD 89.300 UIU/ML 0.400-4.100 H UNLESS OTHERW ISE GENERATION (test INDICATED, ALL code = 2821) TESTING PERFORM ED [facility], [facility]. [address] [place] [id number] [place] [address] DIRECTOR: TRAE BOURGEOIS M.D. CLIA NUMBER [id number] CAP ACCREDITATION N O. [id number] CBC W/AUTO DIFF WITH [id number] 04:43:48 Test Item Value Reference Range Interpretation [...] RBCS 0.00 K/UL 0.00-0.11 (test code = 31912) LIPID [id number] 03:18:10 Test Item Value Reference Range Interpretation [...] , SEE CLIENT ANNOUNCE MENT AT [email or web address] RISK RATIO LDL/HDL 1.78 RATIO <3.22 (test code = 2238) COMPREHENSIVE METABOLIC [id number] 03:18:10 Test Item Value Reference Range Interpretation Comments GLUCOSE (test code = 98 MG/DL 70-99 2216) BUN (test code = 12 MG/DL 8-2207) CREATININE (test 0.81 MG/DL 0.60-1.30 code = 2214) eGFR (2020 CKD-EPI) 83 ML/MIN/1.73 >60 (test code = 87652) CALC BUN/CREAT (test 15 RATIO 6-28 code = 2235) SODIUM (test code = 141 MEQ/L 841-337 5826) POTASSIUM (test code 4.3 MEQ/L 3.5-5.4 = 2228) CHLORIDE (test code 103 MEQ/L 95-107 = 2215) CARBON DIOXIDE (test 29 MEQ/L 19-31 code = 2206) CALCIUM (test code = 9.5 MG/DL 8.5-10.5 220) PROTEIN, TOTAL (test 8.7 G/DL 6.1-8.3 H [...] U/L 5-40 H 2218) COMP. METABOLIC PANEL (24422)2019-01-01 16:13:00 Test Item Value Reference Range Interpretation Comments NA (test code = 142 mmol/L 135-145 9117937235) K (test code = 5.6 mmol/L 3.5-5 H 3280240099) CL (test code = 106 mmol/L 98-108 8337535390) CO2 TOTAL (test code = 28 mmol/L 23-31 2655697187) AGAP (test code = 2-16 5891149381) BUN (test code = 6 mg/dL 7-23 L 4421626112) GLUCOSE (test code = 105 mg/dL 70-110 1594533168) CREATININE (test code = 0.79 mg/dL 0.5-1.04 0543121853) TOTAL BILI (test code = 1.3 mg/dL 0.1-1.1 H 0266224727) CALCIUM (test code = 9.1 mg/dL 8.6-10.6 8948167255) T PROTEIN (test code = 8.7 g/dL 6.3-8.2 H 9509921966) ALBUMIN (test code = 4.0 g/dL 3.5-5 2584236348) ALK PHOS (test code = 72 U/L 34-122 4967417035) ALT(SGPT) (test code = 58 U/L 9-51 H 1606430465) AST(SGOT) (test code = 87 U/L 13-40 H 6930453713) eGFR Calculation mL/min/1.73m2 (Non-) (test code = 8039672416) eGFR Calculation mL/min/1.73m2 () (test code = 0201163255) ROMY (test code = ROMY) Association of [...] tests). Lab Interpretation Abnormal (test code = 09873-8) [facility] BranchLIPID PANEL (46863)(TOTAL CHOLESTEROL, TRIGLYCERIDES, HDL)2019-01-01 16:13:00 Test Item Value Reference Range Interpretation Comments CHOL (test code = 160 mg/dL 120-200 9576262406) HDL (test code = 61 mg/dL >50 9185979793) HDLC RATIO (test code = See_Comment [Au tomated message] 1212570814) The system [employer] generated this result transmit amelie reference range : <=4.5. The refe rence range was not u sed to interpret th is result as normal/abnormal . TRIG (test code = 73 mg/dL 30-170 2751340208) LDL CHOL (test code = 84 mg/dL See_Comment [Auto mated message] 58484-6) The system [employer] generated this result transmit amelie reference range : <=160. The refe rence range was not u sed to interpret th is result as normal/abnormal . VLDL (test code = 15 mg/dL 5-60 1963837440) Lab Interpretation (test Normal code = 38343-8) [facility]"
[2023-04-04] MEDS ORDERED: NA CHLORIDE 0.9% 1,000 ML ONE (15:49)
--- NOTE | 2023-04-04 16:05 | RAD REPORT ---
EXAM DESCRIPTION: Niharika Single View04/04/2023 3:30 pm CLINICAL HISTORY: Chest pain COMPARISON: March 10, 2023 FINDINGS: The lungs appear clear of acute infiltrate. The heart is normal size IMPRESSION: No acute abnormalities displayed
[2023-04-04 16:12] LABS: Absolute Lymphocytes (CBC) 0.7 K/uL (0.7-4.9); Lymphocytes % 6.3 % (15.3-44.8); MCV 87.5 fL (80-100); MPV 7.5 fL (7.6-11.3); Platelets 370 thou/uL (152-406); RBC Red Blood Cell Count 4.57 M/uL (3.86-4.86)
[2023-04-04] MEDS ORDERED: HYDROCODONE/APAP 5/325 MG TAB ONE (16:16)
[2023-04-04 16:18] LABS: Urine Bacteria 20-50 /HPF (<20); Urine Bilirubin NEGATIVE (Negative); Urine Blood Negative (Negative); Urine Clarity Extremely Turbid (Clear); Urine Color Yellow (Yellow); Urine Glucose NEGATIVE (Negative); Urine Mucus Slight /HPF (None Seen); Urine Protein TRACE (Negative); Urine Urobilinogen 3+ (Normal); Urine WBC Clump Rare /HPF (None Seen)
[2023-04-04 16:27] LABS: Barbiturates NEGATIVE (NEGATIVE); Benzodiazepines NEGATIVE (NEGATIVE); Cocaine NEGATIVE (NEGATIVE); METHAMPHETAM NEGATIVE (NEGATIVE); Opiates NEGATIVE (NEGATIVE); Phencyclidine NEGATIVE (NEGATIVE); THC Cannibis NEGATIVE (NEGATIVE)
[2023-04-04 16:36] LABS: Albumin 2.3 g/dL (3.4-5.0); Bilirubin Direct 0.5 mg/dL (0-0.2); Bilirubin Indirect, Calculated 0.8 mg/dL (0.2-0.8); Bilirubin Total 1.3 mg/dL (0.2-1.0); Magnesium 2.2 mg/dL (1.6-2.4); Potassium 3.1 mEq/L (3.5-5.1); Protein, Total 9.2 g/dL (6.4-8.2); Troponin High Sensitivity 11.1 pg/mL (<58.9)
[2023-04-04 16:38] LABS: Methadone ND (NEGATIVE)
[2023-04-04] MEDS ORDERED: CEFTRIAXONE 1000 MG/VIAL ONE (16:54)
--- NOTE | 2023-04-04 18:34 | EDPHYS ---
Physician Documentation [facility] Name: Maisha Leo Age: 62 yrs Sex: Female : 1960 Arrival Date: 04/04/2023 Time: 15:03 Bed 14 Private MD: ED Physician Mejia Juares HPI: 04/04 17:50 This 62 yrs old Female presents to ER via EMS with complaints of Leg Pain. sb4 17:50 patient presents with multiple complaints. states she has been intermittently homeless. sb4 was staying at a friends house today and was forced to leave. she was found by a bystander this afternoon lying in a field, who proceeded to call EMS. upon arrival to the ED, she is complaining of leg pain, chest pain, abdominal pain, and bilateral feet pain. Historical: - Allergies: 15:06 PENICILLINS; tm6 - PMHx: 15:06 ADD/ADHD; Bipolar disorder; Cerebrovascular accident; Cirrhosis; Cirrhosis; COPD; CVA; tm6 Left sided weakness; Fibromyalgia; Hypothyroidism; Myocardial infarction; Hypertension; Seizures; - PSHx: 15:06 right big toe; tm6 - Immunization history:: Adult Immunizations up to date. - Social history:: Smoking status: unknown Patient/guardian denies using alcohol. ROS: 04/05 08:15 Constitutional: Negative for fever, chills, and weight loss, sb4 Cardiovascular: Positive for chest pain, Abdomen/GI: Positive for abdominal pain, MS/extremity: Positive for bilateral feet pain, All other systems are negative, Exam: 08:15 Head/Face: Normocephalic, atraumatic. Eyes: Extra-ocular motions intact. Periorbital sb4 areas with no swelling, redness, or edema. Cardiovascular: Regular rate and rhythm with a normal S1 and S2. Respiratory: Lungs have equal breath sounds bilaterally, clear to auscultation and percussion. No rales, rhonchi or wheezes noted. No increased work of breathing, no retractions or nasal flaring. Abdomen/GI: Soft, non-tender, no distension. MS/ Extremity: Pulses equal, no cyanosis. Neurovascular intact. Full, normal range of motion. Neuro: Awake and alert, GCS 15, oriented to person, place, time, and situation. Sensory grossly intact. Psych: Awake, alert, with orientation to person, place and time. Behavior, mood, and affect are within normal limits. 08:15 Constitutional: The patient appears alert, awake, unkempt, 08:15 Skin: Vital Signs: 04/04 15:11 BP 98 / 74; Pulse 112; Resp 17; Pulse Ox 98% on R/A; Pain 10/10; tm6 16:06 Weight 72.57 kg (M); Height 5 ft. 5 in. (R); kc6 16:07 BP 113 / 80; Pulse 104; Resp 16 S; Pulse Ox 100% on R/A; kc6 17:17 BP 113 / 80; Pulse 103; Resp 16 S; Pulse Ox 98% on R/A; kc6 18:35 Pulse 103; Resp 18 S; Pulse Ox 97% on R/A; kc6 19:21 BP 111 / 63; Pulse 95; Resp 17 S; Pulse Ox 97% on R/A; lg3 16:06 Body Mass Index 26.63 (72.57 kg, 165.1 cm) kc6 15:11 Pain Scale: Adult tm6 MDM: 15:07 Patient medically screened. sb4 04/05 08:15 Differential diagnosis: rhabdomyolysis, ACS, dehydration, UTI. Data reviewed: vital sb4 signs, nurses notes, lab test result(s), EKG, radiologic studies, and as a result, I will admit patient. Consideration of Admission/Observation Patient was admitted/placed on observation. Management of patient was discussed with the following: Hospitalist: Dr. Moses, accepts patient for admission. Care significantly affected by the following chronic conditions: Hypertension. Counseling: I had a detailed discussion with the patient and/or guardian regarding the historical points, exam findings, and any diagnostic results supporting the discharge/admit diagnosis, the presence of at least one elevated blood pressure reading (>120/80) during this emergency department visit, lab results, radiology results, the need for further work-up and treatment in the hospital. 04/04 15:08 Order name: Basic Metabolic Panel; Complete Time: 16:36 sb4 04/04 15:08 Order name: CBC with Diff; Complete Time: 16:13 sb4 04/04 15:08 Order name: LFT's; Complete Time: 16:36 sb4 04/04 15:08 Order name: Magnesium; Complete Time: 16:36 sb4 04/04 15:08 Order name: Troponin HS; Complete Time: 16:36 sb4 04/04 15:08 Order name: CK; Complete Time: 16:36 sb4 04/04 15:08 Order name: UAM; Complete Time: 16:20 sb4 04/04 15:08 Order name: UDS; Complete Time: 16:38 sb4 04/04 16:21 Order name: Urine Culture EDMS 04/04 16:21 Order name: Blood Culture Adult (2) sb4 04/04 16:21 Order name: Lactate w/ 2H reflex if indic.; Complete Time: 17:45 sb4 04/04 20:11 Order name: Lactate Sepsis 2 HR Follow-up; Complete Time: 08:05 EDMS 04/04 15:08 Order name: XRAY Chest (1 view); Complete Time: 16:06 sb4 04/04 17:48 Order name: Foot Right 3 View XRAY; Complete Time: 19:07 sb4 04/04 15:08 Order name: EKG; Complete Time: 15:09 sb4 04/04 15:08 Order name: Cardiac monitoring; Complete Time: 16:06 sb4 04/04 15:08 Order name: EKG - Nurse/Tech; Complete Time: 16:06 sb4 04/04 15:08 Order name: IV Saline Lock; Complete Time: 16:06 sb4 04/04 15:08 Order name: Labs collected and sent; Complete Time: 16:06 sb4 04/04 15:08 Order name: O2 Per Protocol; Complete Time: 15:50 sb4 04/04 15:08 Order name: O2 Sat Monitoring; Complete Time: 15:50 sb4 EC/27 16:12 Rate is 104 beats/min. Rhythm is regular, Sinus tachycardia. TN interval is normal at sb4 140 msec. QRS interval is normal at 90 msec. QT interval is prolonged at [address] changes noted. Clinical impression: Sinus tachycardia and No evidence of ischemia. Interpreted by me. Reviewed by me. Administered Medications: 16:06 Drug: HYDROcodone-acetaminophen PO 5 mg-325 mg 2 tabs PO once Route: PO; kc6 18:38 Follow up: Response: No adverse reaction; Pain is decreased; RASS: Alert and Calm (0) [facility] 16:07 Drug: NS 0.9% IV 1000 ml IV at 1 bolus Per protocol; 1000 mL bolus Route: IV; Rate: 1 kc6 bolus; Site: right antecubital; 18:38 Follow up: Response: No adverse reaction; IV Status: Completed infusion; IV Intake: kc6 1000ml 18:32 Drug: Rocephin IV 1 grams IV at bolus once; Given slow IV push per pharmacy kc6 instructions Route: IV; Rate: bolus; Site: right wrist; 19:12 Follow up: Response: No adverse reaction; IV Status: Completed infusion; IV Intake: 41zdrp3 19:21 Drug: Potassium PO Effervescent Tablet 50 mEq PO once; dissolve in 4 ounces of water or lg3 juice Route: PO; Disposition Summary: 04/04/23 18:33 Hospitalization Ordered Notes: Hospitalization Status: Inpatient Admission sb4 Provider: Lance Moses sb4 [facility] sb4 Condition: Fair sb4 Problem: new sb4 Symptoms: are unchanged sb4 Bed/Room Type: Standard sb4 Room Assignment: 205(04/04/23 20:14) cg Diagnosis - UTI/ Urinary tract infection, site not specified sb4 - Lactic acidosis sb4 Forms: - Medication Reconciliation Form sb4 - SBAR form sb4 - Leadership Thank You Letter sb4 Signatures: Dispatcher [employer] Jose L Bach, STACI-C COIL WINDING SUPERVISOR-Cla1 Summer Terrell, RN RN cg Kristin Ohara RN RN lg3 Sierra Pederson RN RN portillo6 Argentina Merrill PA-C PAConsuelo sb4 Pamela Collier RN RN tm6 Corrections: (The following items were deleted from the chart) 20:14 18:33 sb4 cg
--- NOTE | 2023-04-04 18:34 | ER ---
Nurse's Notes [facility] Name: Maisha Leo Age: 62 yrs Sex: Female : 1960 Arrival Date: 04/04/2023 Time: 15:03 Bed 14 Private MD: Diagnosis: UTI/ Urinary tract infection, site not specified;Lactic acidosis Presentation: 04/04 15:05 Chief complaint: EMS states: found lying on sidewalk. Patient reports leg pain, back tm6 pain, chest pain, forehead pain, abdominal pain. Coronavirus screen: Vaccine status: Patient reports receiving the 2nd dose of the covid vaccine. Client denies travel out of the [place] in the last 14 days. Client indicates they have traveled out of the [place] in the last 14 days. At this time, unable to obtain information related to travel outside the [place] Ebola Screen: Patient negative for fever greater than or equal to 101.5 degrees Fahrenheit, and additional compatible Ebola Virus Disease symptoms Patient denies exposure to infectious person. Patient denies travel to an Ebola-affected area in the 21 days before illness onset. No symptoms or risks identified at this time. Initial Sepsis Screen: Does the patient meet any 2 criteria? No. Patient's initial sepsis screen is negative. Does the patient have a suspected source of infection? No. Patient's initial sepsis screen is negative. Risk Assessment: Do you want to hurt yourself or someone else? Patient reports no desire to harm self or others. Onset of symptoms was April 04, 2023. 15:05 Method Of Arrival: EMS: [facility] tm6 15:05 Acuity: ARTURO 3 tm6 Triage Assessment: 15:06 General: Appears unkempt, Behavior is cooperative. Pain: Complains of pain in face, tm6 back, chest and abdomen. Cardiovascular: Capillary refill < 3 seconds Patient's skin is warm and dry. Respiratory: Airway is patent Respiratory effort is even, unlabored. GI: Abdomen is round non-distended. Historical: - Allergies: 15:06 PENICILLINS; tm6 - PMHx: 15:06 ADD/ADHD; Bipolar disorder; Cerebrovascular accident; Cirrhosis; Cirrhosis; COPD; CVA; tm6 Left sided weakness; Fibromyalgia; Hypothyroidism; Myocardial infarction; Hypertension; Seizures; - PSHx: 15:06 right big toe; tm6 - Immunization history:: Adult Immunizations up to date. - Social history:: Smoking status: unknown Patient/guardian denies using alcohol. Screenin:07 [facility] ED Fall Risk Assessment (Adult) History of falling in the last 3 months, kc6 including since admission Yes- single mechanical fall (1 pt) Confusion or Disorientation No (0 pts) Intoxicated or Sedated No (0 pts) Impaired Gait Yes (1 pt) Mobility Assist Device Used Yes (1 pt) Altered Elimination No (0 pt) Score/Fall Risk Level 3 or more points = High Risk. Abuse screen: Denies threats or abuse. Denies injuries from another. Nutritional screening: No deficits noted. Tuberculosis screening: No symptoms or risk factors identified. Assessment: 16:08 General: Appears in no apparent distress. comfortable, unkempt, Behavior is calm, kc6 cooperative, appropriate for age. Pain: Complains of pain in right leg and left leg. Neuro: Level of Consciousness is awake, alert, obeys commands, Oriented to person, place, time, situation, Appropriate for age. Cardiovascular: Capillary refill < 3 seconds. Respiratory: Airway is patent Trachea midline Respiratory effort is even, unlabored, Respiratory pattern is regular, symmetrical. GI: No signs and/or symptoms were reported involving the gastrointestinal system. : No signs and/or symptoms were reported regarding the genitourinary system. EENT: No signs and/or symptoms were reported regarding the EENT system. Derm: Skin is pink, warm \T\ dry. Musculoskeletal: No signs and/or symptoms reported regarding the musculoskeletal system. Circulation, motion, and sensation intact. Capillary refill < 3 seconds, Range of motion: intact in all extremities. 17:08 Reassessment: Patient appears in no apparent distress at this time. No changes from kc6 previously documented assessment. Patient and/or family updated on plan of care and expected duration. Pain level reassessed. Patient is alert, oriented x 3, equal unlabored respirations, skin warm/dry/pink. 18:08 Reassessment: Patient appears in no apparent distress at this time. No changes from kc6 previously documented assessment. Patient and/or family updated on plan of care and expected duration. Pain level reassessed. Patient is alert, oriented x 3, equal unlabored respirations, skin warm/dry/pink. Vital Signs: 15:11 BP 98 / 74; Pulse 112; Resp 17; Pulse Ox 98% on R/A; Pain 10/10; tm6 16:06 Weight 72.57 kg (M); Height 5 ft. 5 in. (R); kc6 16:07 BP 113 / 80; Pulse 104; Resp 16 S; Pulse Ox 100% on R/A; kc6 17:17 BP 113 / 80; Pulse 103; Resp 16 S; Pulse Ox 98% on R/A; kc6 18:35 Pulse 103; Resp 18 S; Pulse Ox 97% on R/A; kc6 19:21 BP 111 / 63; Pulse 95; Resp 17 S; Pulse Ox 97% on R/A; lg3 16:06 Body Mass Index 26.63 (72.57 kg, 165.1 cm) kc6 15:11 Pain Scale: Adult tm6 ED Course: 15:04 Patient arrived in ED. im 15:06 Triage completed. tm6 15:06 Arm band placed on right wrist. tm6 15:07 Argentina Merrill PA-C is PHCP. sb4 15:07 Mejia Juares MD is Attending Physician. sb4 15:32 XRAY Chest (1 view) In Process Unspecified. EDMS 15:34 Sierra Pederson RN is Primary Nurse. kc6 16:07 Patient has correct armband on for positive identification. Placed in gown. Bed in low kc6 position. Call light in reach. Side rails up X2. Client placed on continuous cardiac and pulse oximetry monitoring. NIBP monitoring applied. clinical research monitor on. 16:07 Inserted saline lock: 22 gauge in right antecubital area, using aseptic technique. kc6 Blood collected. Patient maintains SpO2 saturation greater than 95% on room air. 17:40 Missed attempt(s): 22 gauge in left antecubital area. Bleeding controlled, band aid sm8 applied, catheter tip intact. 17:40 Missed attempt(s): 22 gauge in left hand. Bleeding controlled, band aid applied, sm8 catheter tip intact. 18:15 Inserted saline lock: 22 gauge in right wrist, using aseptic technique. Blood collected.kc6 18:21 Foot Right 3 View XRAY In Process Unspecified. EDMS 18:33 Lance Moses MD is Hospitalizing Provider. sb4 19:00 Report given to AZIZA Foster. kc6 21:31 No provider procedures requiring assistance completed. Patient admitted, IV remains in lg3 place. intact, No redness/swelling at site. Administered Medications: 16:06 Drug: HYDROcodone-acetaminophen PO 5 mg-325 mg 2 tabs PO once Route: PO; kc6 18:38 Follow up: Response: No adverse reaction; Pain is decreased; RASS: Alert and Calm (0) kc6 16:07 Drug: NS 0.9% IV 1000 ml IV at 1 bolus Per protocol; 1000 mL bolus Route: IV; Rate: 1 kc6 bolus; Site: right antecubital; 18:38 Follow up: Response: No adverse reaction; IV Status: Completed infusion; IV Intake: kc6 1000ml 18:32 Drug: Rocephin IV 1 grams IV at bolus once; Given slow IV push per pharmacy kc6 instructions Route: IV; Rate: bolus; Site: right wrist; 19:12 Follow up: Response: No adverse reaction; IV Status: Completed infusion; IV Intake: [id number] 19:21 Drug: Potassium PO Effervescent Tablet 50 mEq PO once; dissolve in 4 ounces of water or lg3 juice Route: PO; Medication: 21:32 VIS not applicable for this client. lg3 Intake: 18:38 IV: 1000ml; Total: 1000ml. kc6 19:12 IV: 50ml; Total: 1050ml. kc6 Outcome: 18:33 Decision to Hospitalize by Provider. sb4 21:32 Admitted to Med/surg accompanied by tech, via wheelchair, Report called to Jenifer 3 21:32 Condition: stable 21:32 Instructed on the need for admit, 21:32 Patient left the ED. 3 Signatures: Dispatcher [employer] EDKristin Flores, RN RN lg3 Sierra Pederson RN RN kc6 Argentina Merrill, PA-Bailey PA-C sb4 Alma Nelson Scarlett 8 Pamela Collier, RN RN tm6
--- NOTE | 2023-04-04 19:06 | RAD REPORT ---
EXAM DESCRIPTION: RAD - Foot Right 3 View - 04/04/2023 6:19 pm CLINICAL HISTORY: Right foot pain and swelling FINDINGS: No acute fracture or dislocation seen. No acute bony destructive lesions noted. Deformity of base of the first distal phalanx is chronic. Bones are osteoporotic
[2023-04-04] MEDS ORDERED: POTASSIUM 25 MEQ EFFERV TAB ONE (19:30)
[2023-04-04] MEDS ORDERED: ONDANSETRON 4 MG/2 ML VIAL IV PRN (19:45)
[2023-04-04] MEDS: NA CHLORIDE 0.9% 1,000 ML IV SCH (20:00)
[2023-04-04 22:15] VITALS: BMI 26.6
--- NOTE | 2023-04-04 22:49 | P.HP ---
Certification for Inpatient Patient admitted to: Inpatient With expected LOS: >2 Midnights Patient will require the following post-hospital care: None Practitioner: I am a practitioner with admitting privileges, knowledge of patient current condition, hospital course, and medical plan of care. Services: Services provided to patient in accordance with Admission requirements found in Title 42 Section 412.3 of the Code of Federal Regulations Patient History Date of Service: 04/05/23 Reason for admission: Urinary tract infection, suspected sepsis, neck pain. History of Present Illness: 63-year-old female patient with medical history significant for hypertension, hyperlipidemia, history of depression, hypothyroidism, homelessness who was evaluated for episode of lower extremity pain and weakness. She was found to have UA highly suggestive of urinary tract infection and she also had social confounders. She is homeless and has suspected sepsis due to elevated lactic acid that was high at 5.0 on initial lab thoughthis trended down to 0.7 after Iv fluid and antibiotic therapy. She was admitted for inpatient care. Allergies Penicillins Allergy (Intermediate, Verified 04/18/19 23:29) Anaphylaxis Home Medications: Amitriptyline [Elavil*] 50 mg PO BEDTIME 09/03/22 Amlodipine [Norvasc*] 10 mg PO BEDTIME 09/03/22 Gabapentin 600 mg PO TID 09/03/22 Trazodone HCl 100 mg PO BEDTIME PRN 09/03/22 levETIRAcetam [Keppra*] 750 mg PO BID 10/27/22 Atorvastatin Calcium [Lipitor*] 40 mg PO BEDTIME #30 tab 11/04/22 Levothyroxine [Synthroid*] 0.125 mg PO DAILYAC #30 tab 11/04/22 ALPRAZolam [Xanax] 0.5 mg PO TID PRN #30 tab 11/24/22 Midodrine HCl [Proamatine*] 5 mg PO TID #90 tab 11/24/22 Cyclobenzaprine [Flexeril*] 10 mg PO BID 04/04/23 Folic Acid 1 mg PO DAILY 04/04/23 Lamotrigine [Lamictal] 25 mg PO DAILY 04/04/23 Lisinopril [Zestril] 40 mg PO DAILY 04/04/23 Meloxicam [Mobic*] 7.5 mg PO BID 04/04/23 - Past Medical/Surgical History Has patient received pneumonia vaccine in the past: Yes Diabetic: No -: Hypothyroidism -: HTN -: Anxiety -: Seizures -: HX CA x2 -: HX CVA - Left side wekness -: Osteoarthritis -: Hepatitis C -: liver cirrhosis -: Geovanny's paralysis -: Neck Surgery -: Tubal Ligation Psychosocial/ Personal History: Patient was at home with family - Family History Mother -: Heart disease, Diabetes Father -: Other (see notes) Notes: Alzheimers Brother -: Other (see notes) Notes: COPD, Bone Cancer, Back Surgery - Social History Smoking Status: Current some day smoker Alcohol use: Yes CD- Drugs: Yes Caffeine use: Yes Place of Residence: [facility] Review of Systems General: Weakness, Malaise Eyes: Unremarkable ENT: Unremarkable Respiratory: Unremarkable Cardiovascular: Unremarkable Gastrointestinal: Unremarkable Genitourinary: Unremarkable Musculoskeletal: Unremarkable Integumentary: Unremarkable Neurological: Unremarkable Physical Examination - Vital Signs Blood Pressure: 111/63 Pulse: 95 Respirations: 17 - Physical Exam General: Alert, Oriented x3 HEENT: Atraumatic, Normocephalic Neck: Supple Respiratory: Normal air movement Cardiovascular: Regular rate/rhythm, Normal S1 S2 Gastrointestinal: Soft and benign Musculoskeletal: No swelling Neurological: Normal speech - Studies Laboratory Data (last 24 hrs) 04/04/23 04/04/23 15:58 15:58 WBC 11.10 H Hgb 13.4 Hct 40.0 Plt Count 370 Sodium 138 Potassium 3.1 L BUN 13 Creatinine 1.45 H Glucose 113 H Magnesium 2.2 Total Bilirubin 1.3 H AST 32 ALT 25 Alkaline Phosphatase 100 Assessment and Plan - Plan Sepsis: Present on admission. Lactate was elevated at 5.0 and this is deemed due to urinary tract infection. Patient did have elevated lactic acid of 5.0 but this trended down to 0.7 after IV fluid and antibiotic therapy was started for urinary tract infection. We will monitor symptomatology. We will follow cultures for adjustment. UTI: UA is significantly concerning. Antibiotic therapy started empirically. Cultures have been taken. we will monitor cultures for adjustment. Hypothyroidism: We will continue levothyroxine replacement therapy History of hypertension: We will monitor vital signs per unit protocol and continue antihypertensive medication as prescribed outpatient History of depression: We will continue outpatient prescribed antidepression medication Hypokalemia: Potassium is low at 3.1. Will replace and monitor. Acute kidney injury: Creatinine is elevated at 1.45 on admission. We will continue IV fluid for repletion and follow levels closely. Prophylaxis: Lovenox for DVT prophylaxis. CODE STATUS: Full code. Disposition: We will treat her urinary tract infection, acute kidney injury and discharge her when she is deemed clinically stable. - Advance Directives Does patient have a Living Will: No Does patient have a Durable POA for Healthcare: No
[2023-04-04] MEDS: MORPHINE 2 MG/ML SYR IV PRN (22:57)
[2023-04-05] MEDS: MORPHINE 2 MG/ML SYR IV PRN ×3 (05:02→21:02)
[2023-04-05] MEDS: CEFTRIAXONE 1,000 MG in NA CHLORIDE 0.9% 50 ML IVPB SCH (08:42)
[2023-04-05 08:44] LABS: Absolute Lymphocytes (CBC) 1.3 K/uL (0.7-4.9); Hematocrit 34.4 % (36.0-45.0); Lymphocytes % 25.5 % (15.3-44.8); MCV 86.5 fL (80-100); MPV 7.3 fL (7.6-11.3); Platelets 294 thou/uL (152-406); RBC Red Blood Cell Count 3.97 M/uL (3.86-4.86)
[2023-04-05] MEDS: NA CHLORIDE 0.9% 1,000 ML IV SCH ×2 (08:54→20:16)
[2023-04-05 08:56] LABS: Albumin 1.9 g/dL (3.4-5.0); Bilirubin Direct 0.3 mg/dL (0-0.2); Bilirubin Total 0.5 mg/dL (0.2-1.0); Potassium 3.9 mEq/L (3.5-5.1); Protein, Total 7.4 g/dL (6.4-8.2)
[2023-04-05] MEDS ORDERED: ENOXAPARIN 40 MG/0.4 ML SQ SCH (09:00)
[2023-04-05] MEDS: ACETAMINOPHEN 325 MG TABLET PO PRN (12:15)
--- NOTE | 2023-04-05 13:17 | P.PN ---
Subjective Date of Service: 04/05/23 Chief Complaint: Urinary tract infection, suspected sepsis, neck pain. No acute events overnight. She reports right lower extremity pain, swelling, and erythema. She denies any obvious inciting or alleviating factors. She denies any fevers, chills, chest pain, or shortness of breath. Review of Systems 10-point ROS is otherwise unremarkable Musculoskeletal: Leg Pain (right), Foot Pain (right) Physical Examination - Vital Signs Temperature: 98.0 F Blood Pressure: 109/66 Pulse: 82 Respirations: 16 Pulse Ox (%): 96 - Physical Exam General: Alert, In no apparent distress, Oriented x3 HEENT: Atraumatic, Sclerae nonicteric Neck: JVD not distended Respiratory: Clear to auscultation bilaterally, Normal air movement Cardiovascular: Regular rate/rhythm, Normal S1 S2, Edema (1+ RLE, no LLE) Gastrointestinal: Normal bowel sounds, Soft and benign, Non-distended, No tenderness, No rebound, No guarding Musculoskeletal: No clubbing, Other (multiple toes with evidence of distal tip gangrene, primarily on left foot) Integumentary: Tenderness/swelling (RLE), Erythema (RLE), Warmth (RLE) Neurological: Normal speech, Normal affect - Studies Laboratory Data (last 24 hrs) 04/04/23 04/04/23 15:58 15:58 WBC 11.10 H Hgb 13.4 Hct 40.0 Plt Count 370 Sodium 138 Potassium 3.1 L BUN 13 Creatinine 1.45 H Glucose 113 H Magnesium 2.2 Total Bilirubin 1.3 H AST 32 ALT 25 Alkaline Phosphatase 100 Assessment And Plan - Plan # Right Lower Extremity Cellulitis with concern for Multiple Bilateral Distal Toe Gangrene She does not meet SIRS criteria. She has what appears to be distal toe gangrene on multiple toes, concerning for a vasculitis vs cardioembolic phenomenon. - Right foot x-ray = "No acute fracture or dislocation seen. No acute bony destructive lesions noted. Deformity of base of the first distal phalanx is chronic. Bones are osteoporotic" - MRI unavailable until 04/07/2023 - Consulted General Surgery and spoke with Dr. Juarez - Recommended silver sulfadiazene, compression, and elevation of legs - Requested bilateral lower extremity venous and arterial Dopplers - As needed pain control # Urinary Tract Infection - Urinalysis = 3+ urobilinogen, 500 leukocyte esterase, 1120 RBCs, 2050 WBCs, 2050 bacteria, > 20 hyaline casts, trace protein - Continue ceftriaxone # Acute Kidney Injury - resolved # Lactic Acidosis likely due to Dehydration and GERMAN - resolved Although she has multiple sources of infection, she does not meet SIRS criteria. Suspect her lactic acidosis to be due to dehydration/GERMAN rather than sepsis. - Creatinine = 1.45 -> 0.77 - Urinalysis = 3+ urobilinogen, 500 leukocyte esterase, 1120 RBCs, 2050 WBCs, 2050 bacteria, > 20 hyaline casts, trace protein - Continue Normal Saline @ 100 mL/hr - Monitor creatinine and urine output - If worsening, obtain renal ultrasound - Renally dose medications # Hepatitis C Cirrhosis # History of Cerebrovascular Accident # Seizure Disorder # Hypertension # Hypothyroidism # Anxiety - Reconcile home medications once verified Burt Jerez M.D.
--- NOTE | 2023-04-05 14:22 | RAD REPORT ---
EXAM DESCRIPTION: US - Extrem Venous W Compress [place] - 04/05/2023 2:10 pm CLINICAL HISTORY: eval for DVT COMPARISON: Extrem Venous W Compress [place] dated 01/05/2023 TECHNIQUE: Real-time sonographic evaluation of the lower extremity deep venous systems was performed using color Doppler, grayscale, and compression. FINDINGS: Bilateral lower extremities. Normal compressibility, flow augmentation, phasic flow and spontaneous flow is identified in both the left and right lower extremity deep venous systems. No intraluminal filling defects seen. IMPRESSION: No DVT in either lower extremity.
--- NOTE | 2023-04-05 14:26 | RAD REPORT ---
EXAM DESCRIPTION: US - Lower Extremity Arterial Bilat - 04/05/2023 2:12 pm CLINICAL HISTORY: Evaluate for peripheral artery disease COMPARISON: None FINDINGS: The common femoral, superficial femoral and popliteal arteries demonstrate monophasic flow in the right lower extremity. Triphasic flow is present throughout the left lower extremity except for the dorsalis pedis which has biphasic flow. IMPRESSION: Monophasic arterial flow throughout the right lower extremity could reflect a moderate o r severe upstream stenosis, perhaps at the iliac vessels. Multiphasic arterial flow throughout the left lower extremity without evidence of a hemodynamically s ignificant stenosis.
[2023-04-05] MEDS: SILVER SULFADIAZINE 1% 25 GM TOP SCH (21:00)
[2023-04-06] MEDS: MORPHINE 2 MG/ML SYR IV PRN ×4 (03:04→22:14)
[2023-04-06 04:51] LABS: Hematocrit 31.4 % (36.0-45.0)
[2023-04-06 05:09] LABS: Albumin 1.7 g/dL (3.4-5.0); Bilirubin Direct 0.2 mg/dL (0-0.2); Bilirubin Total 0.3 mg/dL (0.2-1.0); Magnesium 2.1 mg/dL (1.6-2.4); Phosphorus 2.7 mg/dL (2.5-4.9); Potassium 3.9 mEq/L (3.5-5.1); Protein, Total 7.1 g/dL (6.4-8.2)
[2023-04-06] MEDS: NA CHLORIDE 0.9% 1,000 ML IV SCH ×2 (06:30→16:40)
[2023-04-06] MEDS: SILVER SULFADIAZINE 1% 25 GM TOP SCH ×2 (09:00→21:00)
[2023-04-06] MEDS: CEFTRIAXONE 1,000 MG in NA CHLORIDE 0.9% 50 ML IVPB SCH (09:15)
--- NOTE | 2023-04-06 12:24 | P.PN ---
Subjective Date of Service: 04/06/23 Chief Complaint: Urinary tract infection, suspected sepsis, neck pain. No new events. She reports that her symptoms are slightly better compared to yesterday. She denies any fevers, chills, chest pain, or shortness of breath. Review of Systems 10-point ROS is otherwise unremarkable Musculoskeletal: Leg Pain (right) Integumentary: Rash (RLE - cellulitis) Physical Examination - Vital Signs Temperature: 98.2 F Blood Pressure: 158/89 Pulse: 89 Respirations: 18 Pulse Ox (%): 98 - Physical Exam General: Alert, In no apparent distress, Oriented x3 HEENT: Atraumatic, Mucous membr. moist/pink, Sclerae nonicteric Respiratory: Clear to auscultation bilaterally, Normal air movement Cardiovascular: Regular rate/rhythm, No murmurs, Edema (1+ RLE, no LLE) Gastrointestinal: Normal bowel sounds, Soft and benign, Non-distended, No tenderness, No rebound, No guarding Musculoskeletal: Other (multiple toes with evidence of distal tip gangrene, primarily on left foot) Integumentary: Tenderness/swelling (RLE), Erythema (RLE), Warmth (RLE) Neurological: Normal speech, Normal affect - Studies Microbiology Data (last 24 hrs): 04/04/23 15:58 Clean Catch Urine [place] Count - Final BETWEEN 10,000 & 100,000 CFU/ML 04/04/23 15:58 Clean Catch Urine - Final MIXED SAMANTHA. Assessment And Plan - Plan # Right Lower Extremity Cellulitis with concern for Multiple Bilateral Distal Toe Gangrene She does not meet SIRS criteria. She has what appears to be distal toe gangrene on multiple toes, concerning for a vasculitis vs cardioembolic phenomenon. - Right foot x-ray = "No acute fracture or dislocation seen. No acute bony destructive lesions noted. Deformity of base of the first distal phalanx is chronic. Bones are osteoporotic" - MRI unavailable until 04/07/2023 - Consulted General Surgery and spoke with Dr. Juarez - Recommended silver sulfadiazene, compression, and elevation of legs - Bilateral lower extremity venous Doppler = "no DVT in either lower extremity. - Bilateral lower extremity arterial Doppler = "monophasic arterial flow throughout the right lower extremity could reflect a moderate or severe upstream stenosis, perhaps at the iliac vessels. Multiphasic arterial flow throughout the left lower extremity without evidence of a hemodynamically significant stenosis." - Requested transthoracic echocardiogram to evaluate for possible cardioembolic phenomenon - As needed pain control # Urinary Tract Infection - Urinalysis = 3+ urobilinogen, 500 leukocyte esterase, 1120 RBCs, 2050 WBCs, 2050 bacteria, > 20 hyaline casts, trace protein - Continue ceftriaxone # Acute Kidney Injury - resolved # Lactic Acidosis likely due to Dehydration and GERMAN - resolved Although she has multiple sources of infection, she does not meet SIRS criteria. Suspect her lactic acidosis to be due to dehydration/GERMAN rather than sepsis. - Creatinine = 1.45 -> 0.77 - Urinalysis = 3+ urobilinogen, 500 leukocyte esterase, 1120 RBCs, 2050 WBCs, 2050 bacteria, > 20 hyaline casts, trace protein - Continue Normal Saline @ 100 mL/hr - Monitor creatinine and urine output - If worsening, obtain renal ultrasound - Renally dose medications # Hepatitis C Cirrhosis # History of Cerebrovascular Accident # Seizure Disorder # Hypertension # Hypothyroidism # Anxiety - Reconcile home medications once verified Burt Jerez M.D.
[2023-04-07] MEDS: NA CHLORIDE 0.9% 1,000 ML IV SCH ×5 (02:21→22:59)
[2023-04-07 02:55] LABS: Hematocrit 32.7 % (36.0-45.0)
[2023-04-07 03:06] LABS: Potassium 4.3 mEq/L (3.5-5.1)
[2023-04-07] MEDS: MORPHINE 2 MG/ML SYR IV PRN ×4 (04:20→22:54)
--- NOTE | 2023-04-07 05:35 | P.PN ---
Date of Service: 04/07/23 Subjective: Physical Exam: Vitals: reviewed GEN: Alert, oriented, NAD HEENT: Normal conjunctiva, sclera anicteric CV: Regular rate & rhythm, 1+ RLE edema, no LLE edema Pulm: Nonlabored respiraitons, clear bilaterally ABD: Soft, nontender, nondistended MSK: multiple toes with evidence of distal tip gangrene, primarily on left foot Integumentary: RLE with tenderness, swelling, Erythema, Warmth Neuro: Normal speech, normal affect Problem List: Right Lower Extremity Cellulitis with concern for Multiple Bilateral Distal Toe Gangrene UTI GERMAN, resolved Lactic Acidosis likely due to Dehydration and GERMAN - resolved Hepatitis C Cirrhosis History of CVA Seizure Disorder Hypertension Hypothyroidism Anxiety Plan: General surgery consulted Continue wound care with silver sulfadiazene, compression, and elevation of legs xray foot (04/04): No acute bony destructive lesions noted. Deformity of base of the first distal phalanx is chronic. Bones are osteoporotic MRI unavailable until 04/07 Venous doppler(04/05): no DVT in either lower extremity Arterial doppler(04/05): monophasic arterial flow throughout the right lower extremity could reflect a moderate or severe upstream stenosis, perhaps at the iliac vessels. Cardiology consulted for eval PAD Echo ordered PRN pain medication Continue Rocephin Blood cx: 06/12 growing GPR; possible contaminant urine cx: mixed starr Follow cultures Monitor renal function Renally dose medications Continue IV fluids DVT prophylaxis with lovenox Confirm home medications, restart as appropriate
[2023-04-07] MEDS: CEFTRIAXONE 1,000 MG in NA CHLORIDE 0.9% 50 ML IVPB SCH (09:26)
[2023-04-07] MEDS: SILVER SULFADIAZINE 1% 25 GM TOP SCH ×2 (09:27→21:00)
[2023-04-08] MEDS: NA CHLORIDE 0.9% 1,000 ML IV SCH ×4 (04:00→19:54)
[2023-04-08] MEDS: MORPHINE 2 MG/ML SYR IV PRN ×3 (04:56→19:45)
--- NOTE | 2023-04-08 08:02 | EKG ---
Test Date: 2023-04-04 Test Time: 16:09:05 Operations Support Specialist: EVERT MEASUREMENT RESULTS: Intervals: Rate: 104 AR: 140 QRSD: 90 QT: 384 QTc: 504 [place]: P: 58 AR: 140 QRS: 7 T: 32 INTERPRETIVE STATEMENTS: Sinus tachycardia Inferior infarct, age undetermined Abnormal ECG Compared to ECG 01/05/2023 15:53:05 Sinus rhythm no longer present Myocardial infarct finding still present Electronically Signed On 04-08-23 07:54:39 CDT by Andrew Upton
[2023-04-08] MEDS: CEFTRIAXONE 1,000 MG in NA CHLORIDE 0.9% 50 ML IVPB SCH (08:23)
--- NOTE | 2023-04-08 08:27 | ECHO ---
HEIGHT: 5 ft 5 in WEIGHT: 160 lb 0 oz DATE OF STUDY: 04/07/[address]: Burt Jerez MD 2-DIMENSIONAL: YES M.MODE: YES DOPPLER: YES COLOR FLOW: YES TDS: PORTABLE: YES DEFINITY: BUBBLE STUDY: DIAGNOSIS: EVALUATE FOR EMBOLIC PHENOMENO/ DISTAL TOE GANGRENE CARDIAC HISTORY: CATHERIZATION: SURGERY: PROSTHETIC VALVE: PACEMAKER: MEASUREMENTS (cm) DIASTOLIC (NORMALS) SYSTOLIC (NORMALS) IVSd 1.0 (0.6-1.2) LA Diam 4.4 (1.9-4.0) LVEF 61% LVIDd 3.8 (3.5-5.7) LVIDs 2.5 (2.0-3.5) %FS 32% LVPWd 1.2 (0.6-1.2) Ao Diam 3.1 (2.0-3.7) 2 DIMENSIONAL ASSESSMENT: RIGHT ATRIUM: NORMAL LEFT ATRIUM: ENLARGED RIGHT VENTRICLE: NORMAL LEFT VENTRICLE: NORMAL TRICUSPID VALVE: MILD TRICUSPID REGURGITATION MITRAL VALVE: MILD MITRAL REGURGITATION PULMONIC VALVE: NORMAL AORTIC VALVE: HEAVILY CALCIFIED AORTIC VALVE, NO AORTIC STENOSIS PERICARDIAL EFFUSION: NONE AORTIC ROOT: NORMAL LEFT VENTRICULAR WALL MOTION: NORMAL DOPPLER/COLOR FLOW: SEE BELOW COMMENTS: 1. NORMAL LEFT VENTRICULAR EJECTION FRACTION 60-65% WITH NORMAL WALL MOTION 2. LEFT ATRIAL ENLARGEMENT 3. CALCIFIED AORTIC VALVE, NO AORTIC STENOSIS 4. MILD TRICUSPID REGURGITATION, MITRAL REGURGITATION 5. MILD AORTIC INSUFFICIENCY 6. GRADE I DIASTOLIC DYSFUNCTION 7. SEVERE PULMONARY HYPERTENSION WITH RIGHT VENTRICULAR SYSTOLIC PRESSURE GREATER THAN 60 mmHg TECHNOLOGIST: MICHAEL ARECHIGA
[2023-04-08] MEDS: SILVER SULFADIAZINE 1% 25 GM TOP SCH ×2 (08:30→19:46)
[2023-04-08] MEDS ORDERED: HEPA 1000U/500MLS 2,000 UNIT/1,000 ML BAG IV ONE (15:38)
[2023-04-08] MEDS ORDERED: LIDOCAINE 1% 20 ML MDV ONE (15:38)
[2023-04-08] MEDS ORDERED: FENTANYL CITR 100 MCG/2 ML ONE (15:38)
[2023-04-08] MEDS ORDERED: MIDAZOLAM HCL 2 MG/2 ML INJ ONE (15:39)
[2023-04-08] MEDS ORDERED: CLOPIDOGREL 75 MG TABLET ONE (15:39)
[2023-04-08] MEDS ORDERED: ASPIRIN 325 MG TAB ONE (15:39)
[2023-04-08] MEDS ORDERED: HEPARIN 10,000 UNIT/10 ML VIAL IV ONE (15:39)
[2023-04-08] MEDS ORDERED: ATROPINE SULF 1 MG/10 ML SYR IV ONE (15:40)
[2023-04-08] MEDS ORDERED: TICAGRELOR 90 MG TABLET PO ONE (15:40)
[2023-04-08 17:58] VITALS: O2SAT 99
--- NOTE | 2023-04-08 19:35 | CON ---
Date of Consultation: 04/08/2023 Reason For Consultation: Evaluation for peripheral vascular disease and she has open wounds and abno rmal arterial Doppler. History Of Present Illness: This is a 62-year-old female with past medical history of hypertension, dyslipidemia, hypothyroidism, homeless, presented with lower extremity pain and weakness and open wou nds. Had UTI also. We did arterial Doppler, showed monophasic wave suggestive of severe inflow sten osis, hence I was consulted to evaluate her by bedside and she does admit to pain to the lower extrem ities with activities. Past Medical History: As outlined above in the HPI. Medications: Refer to reconciliation sheet for detailed list. Allergies: PENICILLIN. Family History: No mature coronary artery disease or cancer. Social History: She is an active smoker. Does not drink or use drugs. Review of Systems: All systems reviewed are negative except as mentioned in HPI. Physical Examination: Vital Signs: Reviewed. Head and Neck: Pupils are equal, reactive to light. Intact eye movements. No JVD. No cervical lym phadenopathy. Neck is supple. Thyroid is not enlarged. Lungs: Clear to auscultation bilaterally. No rhonchi, wheezing, or crackles. No accessory muscle u se. Heart: Regular rate and rhythm. No extra sounds. Abdomen: Soft, nontender. Bowel sounds positive. No organomegaly. No masses or hernia. No rigidi ty or rebound. Extremities: No edema, clubbing, cyanosis. Intact pulses. SKIN no rash. Neurologic: Alert, awake, oriented x3. No acute focal deficits appreciated. Investigations: Labs are reviewed. Assessment/recommendations: 1.Peripheral vascular disease by ultrasound. She has monophasic arterial flow in the right lower ex tremity. Keep n.p.o., plan for peripheral angiogram as she has nonhealing wounds. 2.Hypertension. Blood pressure is controlled. Continue current management. 3.Dyslipidemia. Recommend Lipitor 40 mg at bedtime. 4.Congestive heart failure is diastolic. Recommend diuresis with Lasix, start at 20 mg daily and se e her response and adjust further. This patient needs close followup. From Cardiology standpoint, a fter peripheral angiogram, she can be released and follow up as an outpatient. SR/MODL Voice ID: [id number] Report ID: [id number]
[2023-04-08] MEDS: DOXYCYCLINE 100 MG CAP PO SCH (19:46)
[2023-04-09] MEDS: ACETAMINOPHEN 325 MG TABLET PO PRN (00:59)
[2023-04-09] MEDS: MORPHINE 2 MG/ML SYR IV PRN ×2 (01:50→08:35)
[2023-04-09] MEDS: NA CHLORIDE 0.9% 1,000 ML IV SCH ×2 (06:13)
[2023-04-09] MEDS: DOXYCYCLINE 100 MG CAP PO SCH (08:36)
[2023-04-09] MEDS: SILVER SULFADIAZINE 1% 25 GM TOP SCH (08:36)
[2023-04-09 11:48] VITALS: BP 119/78; TEMP 98.3
== END 2023-04-09 19:20 | disposition home or self-care (01) | DRG 300 ==
LOC: ER 15:03 → ERHOLD 19:46 → 2ND 20:53
PROVIDERS: ADMIT Internal Medicine Nephrology; ATTEND Hospitalist
PROC: B41G1ZZ Fluoroscopy of Left Lower Extremity Arteries using Low Osmolar Contrast (ICD-10-PCS; principal; 2023-04-08)
PROC: B41F1ZZ Fluoroscopy of Right Lower Extremity Arteries using Low Osmolar Contrast (ICD-10-PCS; 2023-04-08)
DX: I96 Gangrene, not elsewhere classified (principal); E87.20 Acidosis, unspecified; L03.115 Cellulitis of right lower limb; N39.0 Urinary tract infection, site not specified; N17.9 Acute kidney failure, unspecified; Z59.00 Homelessness unspecified; I50.32 Chronic diastolic (congestive) heart failure; I11.0 Hypertensive heart disease with heart failure; J44.9 Chronic obstructive pulmonary disease, unspecified; F90.9 Attention-deficit hyperactivity disorder, unspecified type; M79.7 Fibromyalgia; E03.9 Hypothyroidism, unspecified; F31.9 Bipolar disorder, unspecified; K74.60 Unspecified cirrhosis of liver; M19.90 Unspecified osteoarthritis, unspecified site; E87.6 Hypokalemia; E86.0 Dehydration; F41.9 Anxiety disorder, unspecified; G40.909 Epilepsy, unspecified, not intractable, without status epilepticus; F17.200 Nicotine dependence, unspecified, uncomplicated; I25.2 Old myocardial infarction; B19.20 Unspecified viral hepatitis C without hepatic coma; Z88.0 Allergy status to penicillin; Z98.51 Tubal ligation status; Z86.73 Personal history of transient ischemic attack (TIA), and cerebral infarction without residual deficits; Z79.890 Hormone replacement therapy; Z79.899 Other long term (current) drug therapy
CPT/HCPCS: 36200; 36245; 36246; 36415; 71045; 76937; 80048; 80053; 80076; 80307; 81001; 82248; 82550; 83605; 83735; 84100; 84484; 85014; 85018; 85025; 87040; 87086; 87088; 87205; 93005; 93306; 93925; 93970; 96361; 96365; 99285; C1893; J0461; J0696; J1650; J2001; J2250; J2270; J3010; J7030

== ENCOUNTER 2023-07-02 17:47 | Observation (INO) | payer OTHER ==
--- NOTE | 2023-07-02 18:30 | RAD REPORT ---
EXAM DESCRIPTION: RAD - Femur Left - 07/02/2023 6:24 pm CLINICAL HISTORY: PAIN COMPARISON: Femur Left dated 05/13/2019 FINDINGS: No acute fracture or dislocation.
--- NOTE | 2023-07-02 18:31 | RAD REPORT ---
EXAM DESCRIPTION: RAD - Femur Right - 07/02/2023 6:24 pm CLINICAL HISTORY: PAIN COMPARISON: Femur Right dated 11/25/2022 FINDINGS: No acute fracture or dislocation.
--- NOTE | 2023-07-02 18:32 | RAD REPORT ---
EXAM DESCRIPTION: RAD - Foot Right 3 View - 07/02/2023 6:25 pm CLINICAL HISTORY: PAIN COMPARISON: Foot Right 3 View dated 04/04/2023; Foot Right 3 View dated 01/22/2022 FINDINGS: No acute fracture or dislocation. Mild soft tissue swelling anteriorly. Tiny calcaneal spu rs.
[2023-07-02] MEDS ORDERED: ONDANSETRON 4 MG/2 ML VIAL ONE (19:04)
[2023-07-02] MEDS ORDERED: LIDOCAINE 1% 20 ML MDV ONE (19:04)
[2023-07-02] MEDS ORDERED: MORPHINE 4 MG/ML SYR ONE ×2 (19:06→19:50)
[2023-07-02 19:45] LABS: Absolute Lymphocytes (CBC) 0.8 K/uL (0.7-4.9); Hematocrit 37.5 % (36.0-45.0); Lymphocytes % 33.8 % (15.3-44.8); MCV 88.9 fL (80-100); MPV 7.8 fL (7.6-11.3); Platelets 115 thou/uL (152-406); RBC Red Blood Cell Count 4.21 M/uL (3.86-4.86)
[2023-07-02 19:54] LABS: Protime INR 1.16
[2023-07-02 19:55] LABS: Potassium 3.7 mEq/L (3.5-5.1)
[2023-07-02 20:29] LABS: Blood Morphology Comment NOT SEEN (NOT SEEN); Platelet Estimate DECR; White Blood Cell Scan OK (OK)
--- NOTE | 2023-07-02 20:47 | RAD REPORT ---
EXAM DESCRIPTION: CT - Head C Spine Cap W Con - 07/02/2023 8:36 pm CLINICAL HISTORY: Trauma, head and neck injury. Chest, abdomen and pelvis pain. fall down 3 steps, head/back/pelvic pain COMPARISON: Head C Spine Cap Wo Con dated 11/25/2022; Head C Spine Cap Wo Con dated 11/16/2022; Head C Spine Cap Wo Con dated 10/27/2022; Head C Spine Cap Wo Con dated 09/02/2022 TECHNIQUE: CT head without contrast. CT cervical spine without contrast with coronal and sagittal reformatted images. CT chest, abdomen and pelvis with IV contrast (approximately 100 mL nonionic IV contrast) with back l and sagittal reformatted images of the spine. All CT scans are performed using dose optimization technique as appropriate and may include automated exposure control or mA/KV adjustment according to patient size. FINDINGS: CT HEAD WITHOUT CONTRAST: No intracranial hemorrhage, hydrocephalus or extra-axial fluid collection. No areas of brain edema o r midline shift. The paranasal sinuses and mastoids are clear. The calvarium is intact. Large posterior scalp hematoma . CT CERVICAL SPINE WITHOUT CONTRAST: No fracture or subluxation. The prevertebral soft tissues are normal in thickness.Postsurgical riggs es with hardware in place spanning C3-6. CT CHEST, ABDOMEN, PELVIS WITH CONTRAST: The lungs are clear.No pneumothorax or pericardial/pleural fluid. Mild esophageal thickening is prese nt. No evidence of intra-abdominal visceral injury, free fluid or free air. Significant liver cirrhosis i s noted. The liver is mildly enlarged. No concerning pelvic findings. No fractures. Advanced lower lumbar degenerative changes with moderate anterolisthesis of L5 on S1. IMPRESSION: Negative for acute traumatic findings.
[2023-07-02] MEDS ORDERED: TDAP (DIPHTH,PERTUSS(ACELL),TET VAC) 0.5 ML VIAL IMVAC ONE (21:16)
[2023-07-02] MEDS ORDERED: LIDOCAINE 2% W/EPI 1:200,000 MPF 20 ML VIAL IM ONE (22:17)
--- NOTE | 2023-07-02 22:39 | ER ---
Nurse's Notes [facility] Name: Maisha Leo Age: 63 yrs Sex: Female : 1960 Arrival Date: 07/02/2023 Time: 17:47 Bed 19 Private MD: Diagnosis: Acute significant blood loss, left posterior scalp laceration, closed head injury, acute fall, right foot laceration, right frontal scalp laceration, right forehead laceration, moderate blood loss Presentation: 07/02 17:54 Chief complaint: EMS states: pt was walking down some stairs to try and get to her as6 talker and tripped and fell, - LOC and blood thinners. Coronavirus screen: At this time, the client does not indicate any symptoms associated with coronavirus-19. Ebola Screen: No symptoms or risks identified at this time. Initial Sepsis Screen: Does the patient meet any 2 criteria? No. Patient's initial sepsis screen is negative. Does the patient have a suspected source of infection? No. Patient's initial sepsis screen is negative. Risk Assessment: Do you want to hurt yourself or someone else? Patient reports no desire to harm self or others. Onset of symptoms was July 02, 2023. 17:54 Method Of Arrival: EMS: [facility] as6 17:54 Acuity: ARTURO 3 as6 Historical: - Allergies: 17:53 PENICILLINS; as6 - PMHx: 17:53 ADD/ADHD; Hypertension; Hypothyroidism; Fibromyalgia; Myocardial infarction; CVA; Left as6 sided weakness; Cirrhosis; Cerebrovascular accident; COPD; Seizures; Bipolar disorder; - PSHx: 17:53 right big toe; as6 Historical Immunization: - Administered Vaccines 23:40 Lidocaine-Epinephrine Infiltration -2 % (1:100,000) 10 ml ha1 23:16 Dinosaur PO 10 mg-325 mg 1 tabs jw7 23:16 Ondansetron PO 4 mg jw7 23:16 Ketorolac IVP 30 mg jw7 22:15 Tetanus Toxoid,Adsorbed IM 0.5 ml ha1 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, [facility] [address]; ; Education: Provided; VIS Presented Date: ; VIS Publication: Tetanus/Diphtheria (Td) Vaccine VIS 09/17/2016 (historic) 20:08 Lidocaine Infiltration (1 %) 20 ml ha1 19:45 morphine IVP or IV 4 mg ha1 19:22 morphine IVP or IV 4 mg ha1 19:20 Ondansetron IVP 4 mg ha1 - Immunization history:: Last tetanus immunization: unknown. - Social history:: Smoking status: Patient reports the use of cigarette tobacco products, smokes one-half pack cigarettes per day. - Family history:: not pertinent. - Hospitalizations: : No recent hospitalization is reported. Screenin/25 01:31 [facility] ED Fall Risk Assessment (Adult) History of falling in the last 3 months, ha1 including since admission Yes- single mechanical fall (1 pt) Confusion or Disorientation No (0 pts) Intoxicated or Sedated No (0 pts) Impaired Gait Yes (1 pt) Mobility Assist Device Used Yes (1 pt) Altered Elimination No (0 pt) Score/Fall Risk Level 3 or more points = High Risk Oriented to surroundings, Maintained a safe environment, Educated pt \T\ family on fall prevention, incl call for assistance when getting out of bed, Hourly rounding (assess needs \T\ fall precautionary measures) done. Abuse screen: Denies threats or abuse. Denies injuries from another. Nutritional screening: No deficits noted. Tuberculosis screening: No symptoms or risk factors identified. Assessment: 07/02 19:10 General: Appears uncomfortable, Behavior is cooperative. Pain: Complains of pain in ha1 left occipital area and right side of forehead Pain does not radiate. Pain currently is 9 out of 10 on a pain scale. Quality of pain is described as throbbing. Neuro: Level of Consciousness is awake, alert, obeys commands, Oriented to person, place, time, situation. Cardiovascular: Capillary refill < 3 seconds. Respiratory: Airway is patent Respiratory effort is even, unlabored, Respiratory pattern is regular, symmetrical. GI: No signs and/or symptoms were reported involving the gastrointestinal system. : No signs and/or symptoms were reported regarding the genitourinary system. Derm: Skin is dry, Skin is normal. Musculoskeletal: Circulation, motion, and sensation intact. Injury Description: Laceration sustained to left side of forehead and left occipital area is full thickness, 2.6 to 7.5 cm long, bleeding profusely, was sustained 1-2 hours ago. is bleeding profusely at this time. A dressing was applied. 20:05 Reassessment: Patient and/or family updated on plan of care and expected duration. Pain ha1 level reassessed. Patient is alert, oriented x 3, equal unlabored respirations, skin warm/dry/pink. no bleeding wound dressing dry Patient states feeling better. Patient states symptoms have improved. 21:00 Reassessment: Patient and/or family updated on plan of care and expected duration. Pain ha1 level reassessed. Patient is alert, oriented x 3, equal unlabored respirations, skin warm/dry/pink. 22:00 Reassessment: Patient and/or family updated on plan of care and expected duration. Pain ha1 level reassessed. Patient is alert, oriented x 3, equal unlabored respirations, skin warm/dry/pink. 23:00 Reassessment: Patient and/or family updated on plan of care and expected duration. Pain ha1 level reassessed. Patient is alert, oriented x 3, equal unlabored respirations, skin warm/dry/pink. 07/03 00:00 Reassessment: Patient and/or family updated on plan of care and expected duration. Pain ha1 level reassessed. Patient is alert, oriented x 3, equal unlabored respirations, skin warm/dry/pink. Vital Signs: 07/02 17:53 BP 148 / 102; Pulse 82; Resp 18 S; Temp 98.1(TE); Pulse Ox 97% on R/A; Weight 74.84 kg as6 (R); Height 5 ft. 5 in. (R); Pain 10/10; 19:15 BP 140 / 96; Pulse 78; Resp 17 S; Pulse Ox 96% on R/A; ha1 20:00 BP 121 / 85; Pulse 66; Resp 17 S; Pulse Ox 95% on R/A; ha1 20:47 BP 121 / 85; Pulse 66; Resp 17 S; Pulse Ox 97% on R/A; ha1 21:35 BP 132 / 89; Pulse 75; Resp 17 S; Pulse Ox 97% on 2 lpm NC; ha1 22:30 BP 138 / 98; Pulse 77; Resp 17 S; Pulse Ox 98% on 2 lpm NC; ha1 23:30 BP 123 / 67; Pulse 73; Resp 17 S; Pulse Ox 98% on 2 lpm NC; ha1 17:53 Body Mass Index 27.46 (74.84 kg, 165.1 cm) as6 17:53 Pain Scale: Adult as6 ED Course: 17:52 Patient arrived in ED. as6 17:55 Michael Faith MD is Attending Physician. rn 17:55 Triage completed. as6 17:55 Arm band placed on. as6 17:56 Adilia Corona, RN is Primary Nurse. ph 17:56 Patient placed in an exam room, on a stretcher. ll1 18:26 XRAY Femur LEFT In Process Unspecified. EDMS 18:26 XRAY Femur RIGHT In Process Unspecified. EDMS 18:26 XRAY Foot RIGHT 3 View In Process Unspecified. EDMS 19:00 Patient has correct armband on for positive identification. Placed in gown. Bed in low ha1 position. Call light in reach. Side rails up X 1. 19:15 Inserted saline lock: 22 gauge in left antecubital area, using aseptic technique. Blood ha1 collected. 19:17 Protime (+inr) Sent. cg3 19:17 Ptt, Activated Sent. cg3 19:17 Basic Metabolic Panel Sent. cg3 19:17 CBC with Diff Sent. cg3 20:13 Attending Physician role handed off by Michael Faith MD sp4 20:13 Jersey Sinclair MD is Attending Physician. sp4 20:38 CT Traumagram (Head C Spine CAP W Con) In Process Unspecified. EDMS 22:38 Watson Talley MD is Hospitalizing Provider. sp4 07/03 00:30 No provider procedures requiring assistance completed. ha1 00:30 Patient admitted, IV remains in place. ha1 01:33 Provided Education on: need for admit . ha1 Administered Medications: 07/02 19:20 Drug: Ondansetron IVP 4 mg IVP once; over 2 minutes Route: IVP; Site: left antecubital; ha1 19:45 Follow up: Response: No adverse reaction ha1 19:22 Drug: morphine IVP or IV 4 mg IVP once over 4 mins Route: IVP; Infused Over: 4 mins; ha1 Site: left antecubital; 19:45 Follow up: Response: No adverse reaction; Pain is unchanged, physician notified; RASS: ha1 Restless (+1) 19:45 Drug: morphine IVP or IV 4 mg IVP once over 4 mins Route: IVP; Infused Over: 4 mins; ha1 Site: left antecubital; 20:00 Follow up: Response: No adverse reaction; Pain is decreased; RASS: Alert and Calm (0) ha1 20:08 Drug: Lidocaine Infiltration (1 %) 20 ml 20 ml Infiltration once; to bedside {Note: ha1 administered by Dr. Faith.} Volume: 20 ml; Route: Infiltration; 21:00 Follow up: Response: No adverse reaction ha1 22:15 Drug: Tetanus Toxoid,Adsorbed IM 0.5 ml IM once; Provide Vaccine Information Statement ha1 (VIS). {Entry Tech: [employer]; Exp: FriOct 29 2024; Lot #: [id number]; Series: 1 of 1; Patient Consent: Obtained; Date/Time: ; Source Name: Maisha Leo; Source Relationship: Self; Address Information: [address] [place] [id number]; ; Education: Provided; VIS Presented Date: ; VIS Publication: Tetanus/Diphtheria (Td) Vaccine VIS 09/17/2016 (historic)} Route: IM; Site: left deltoid; 23:00 Follow up: Response: (VIS) Vaccine information sheet provided today. Questions and/or ha1 concerns addressed. VIS edition date: Jan 12, 2021.; No adverse reaction 23:16 Drug: Dinosaur PO 10 mg-325 mg 1 tabs PO once Route: PO; jw7 23:45 Follow up: Response: No adverse reaction; Marked relief of symptoms; Pain is decreased; ha1 RASS: Alert and Calm (0) 23:16 Drug: Ondansetron PO 4 mg PO once Route: PO; jw7 23:45 Follow up: Response: No adverse reaction; Marked relief of symptoms ha1 23:16 Drug: Ketorolac IVP 30 mg IVP once Route: IVP; Site: left antecubital; jw7 23:50 Follow up: Response: No adverse reaction; Pain is decreased ha1 23:40 Drug: Lidocaine-Epinephrine Infiltration -2 % (1:100,000) 10 ml Infiltration once; to [facility] bedside {Note: administered by Dr. Sinclair .} Route: Infiltration; 07/03 01:25 Follow up: Response: No adverse reaction ha1 Medication: 01:33 Vaccine Information Statement (VIS) provided today. Questions and/or concerns ha1 addressed. VIS edition date: July 03, 2023. Outcome: 07/02 22:38 Decision to Hospitalize by Provider. sp4 07/03 00:30 Admitted to ER Hold. [facility] for [facility] documentation. ha1 Condition: stable Discharge instructions given to patient, Instructed on the need for admit, Demonstrated understanding of instructions, 16:06 Patient left the ED. rs5 Signatures: Dispatcher [employer] EDMS Michael Faith MD MD rn Hall, Patricia RN Zayda Campbell ph, RN RN ll1 Abundio Wu RN RN as6 Nichole Bradford RN RN jw7 Radha Be RN RN ha1 Dimitrios Izaguirre RN RN rs5 Jersey Sinclair MD MD sp4 [place]ona [place] [facility]
--- NOTE | 2023-07-02 22:39 | EDPHYS ---
Physician Documentation [facility] Name: Maisha Leo Age: 63 yrs Sex: Female : 1960 Arrival Date: 07/02/2023 Time: 17:47 Bed 19 Private MD: ED Physician Jersey Sinclair HPI: 07/02 18:04 This 63 yrs old Female presents to ER via EMS with complaints of fall down stairs. rn 18:04 Trauma demographics: Location of Injury: The injury occurred at home. Mechanism of rn injury: Fall: the patient fell down 3 steps. 19:21 Associated injuries: The patient sustained injury to the head. Onset: The rn symptoms/episode began/occurred just prior to arrival. The patient has not experienced similar symptoms in the past. Patient states was trying to get a walker at the end of steps, slipped, fell forward, hit front and back of head. Patient reports pain to head/neck/back. Reports soreness to all 4 extremities but able to move them and does not feel broken.. Historical: - Allergies: 17:53 PENICILLINS; as6 - PMHx: 17:53 ADD/ADHD; Hypertension; Hypothyroidism; Fibromyalgia; Myocardial infarction; CVA; Left as6 sided weakness; Cirrhosis; Cerebrovascular accident; COPD; Seizures; Bipolar disorder; - PSHx: 17:53 right big toe; as6 - Immunization history:: Last tetanus immunization: unknown. - Social history:: Smoking status: Patient reports the use of cigarette tobacco products, smokes one-half pack cigarettes per day. - Family history:: not pertinent. - Hospitalizations: : No recent hospitalization is reported. ROS: 19:21 Constitutional: Negative for fever, chills, and weight loss, Neck: Positive for mild rn neck pain Cardiovascular: Negative for chest pain, palpitations, and edema, Respiratory: Negative for shortness of breath, cough, wheezing, and pleuritic chest pain, Abdomen/GI: Negative for abdominal pain, nausea, vomiting, diarrhea, and constipation, Back: Positive for mid back pain MS/Extremity: Positive for contusion of right foot Skin: Positive for laceration to right forehead and occiput Neuro: Positive for headache Exam: 19:21 Constitutional: This is a well developed, well nourished patient who is awake, alert, rn face with dried blood noted and pressure dressing/wrap around head Head/Face: 2 cm irregular and angulated laceration, partial/near full-thickness right forehead with venous bleeding noted. No arterial bleeding. No foreign body. Galea appears intact Eyes: Pupils equal round and reactive to light, extra-ocular motions intact. ENT: No oral trauma noted Neck: No midline cervical tenderness Chest/axilla: No crepitus. Nontender. Cardiovascular: Regular rate and rhythm. No pulse deficits. Respiratory: No increased work of breathing, no retractions or nasal flaring. Abdomen/GI: Soft, non-tender Skin: Warm, dry, sick centimeter chevron superficial laceration top of right foot extends only to subcutaneous fat, no tendons exposed. No active bleeding MS/ Extremity: Pulses equal, no cyanosis. No gross deformity. Full range of motion of all 4 extremities. Neuro: Awake and alert, GCS 15 Vital Signs: 17:53 BP 148 / 102; Pulse 82; Resp 18 S; Temp 98.1(TE); Pulse Ox 97% on R/A; Weight 74.84 kg as6 (R); Height 5 ft. 5 in. (R); Pain 10/10; 19:15 BP 140 / 96; Pulse 78; Resp 17 S; Pulse Ox 96% on R/A; ha1 20:00 BP 121 / 85; Pulse 66; Resp 17 S; Pulse Ox 95% on R/A; ha1 20:47 BP 121 / 85; Pulse 66; Resp 17 S; Pulse Ox 97% on R/A; ha1 21:35 BP 132 / 89; Pulse 75; Resp 17 S; Pulse Ox 97% on 2 lpm NC; ha1 22:30 BP 138 / 98; Pulse 77; Resp 17 S; Pulse Ox 98% on 2 lpm NC; ha1 23:30 BP 123 / 67; Pulse 73; Resp 17 S; Pulse Ox 98% on 2 lpm NC; ha1 17:53 Body Mass Index 27.46 (74.84 kg, 165.1 cm) as6 17:53 Pain Scale: Adult as6 Procedures: 22:51 Performed Left posterior scalp laceration revision. Left posterior scalp laceration sp4 started bleeding around estuardo. Patient's hair was trimmed and estuardo were removed. 3-0 Silk Sutures were used to close laceration total of 12 sutures , simple interrupted sutures. There was no recurrent bleed. Pressure dressing was applied. . Laceration: 19:20 Wound Repair of 2cm ( 0.8in ) partial thickness and angulated laceration to face. rn Irregularly shaped.. Skin/tissue flap noted.. Galea appears intact. Distal neuro/vascular/tendon intact. Anesthesia: Wound infiltrated with 2 mls of 1% lidocaine. Wound prep: Extensive cleansing by me, Wound irrigation by me, Wound explored extensively. Skin closed with 4 4-0 Prolene using interrupted sutures and sterile technique. Dressed with pressure dressing. Patient tolerated well. 20:16 Wound Repair of 6cm ( 2.4in ) subcutaneous laceration to right foot. Distal rn neuro/vascular/tendon intact. Anesthesia: Wound infiltrated with 3 mls of 1% lidocaine. Wound prep: Extensive cleansing by nurse, Wound irrigation by nurse, Wound explored extensively. Skin closed with 7 4-0 Prolene using interrupted sutures and sterile technique. Dressed with Kerlix. Patient tolerated well. 20:16 Wound Repair of 6cm ( 2.4in ) subcutaneous laceration to left occipital area. Arterial rn bleeding noted.. Distal neuro/vascular/tendon intact. Wound prep: Moderate cleansing by nurse, Wound explored extensively. Skin closed with [address] using staple gun. Skin/arteriolar bleed closed with 2 4-0 Prolene using [id number] sutures. Dressed with Kerlix. Patient tolerated well. MDM: 17:55 Patient medically screened. rn 19:30 ED course: Unable to visualize posterior laceration but I anticipate 1 is there given rn the blood collected on bandage. Does not seem to be actively bleeding. Patient is in a c-collar. Following imaging and clearance of C-spine will examine posterior head or scalp.. 20:16 Transition of care: After a detail discussion of the patient's case, care is rn transferred to Jersey Sinclair MD. ED course: Patient noted after cleaning wound to have a small arteriolar bleed on left occipital scalp. Able to close majority of wound using 11 estuardo but required 2 [id number] sutures, Prolene for hemostasis of arterial bleed. Bleeding stopped following the [id number] sutures. Long tails left on sutures for removal. Hair was trimmed for better observation of tissue and laceration. Patient gave permission for this.. 22:37 ED course: EXAM DESCRIPTION: CT - Head C Spine Cap W Con - 07/02/2023 8:36 pm 11/16/2022; sp4 Head C Spine Cap Wo Con dated 10/27/2022; Head C Spine Cap Wo Con dated 09/02/2022 TECHNIQUE: CT head without contrast. CT cervical spine without contrast with coronal and sagittal reformatted images. CT chest, abdomen and pelvis with IV contrast (approximately 100 mL nonionic IV contrast) with coronal and sagittal reformatted images of the spine. All CT scans are performed using dose optimization technique as appropriate and may include automated exposure control or mA/KV adjustment according to patient size. FINDINGS: CT HEAD WITHOUT CONTRAST: No intracranial hemorrhage, hydrocephalus or extra-axial fluid collection. No areas of brain edema or midline shift. The paranasal sinuses and mastoids are clear. The calvarium is intact. Large posterior scalp hematoma. CT CERVICAL SPINE WITHOUT CONTRAST: No fracture or subluxation. The prevertebral soft tissues are normal in thickness.Postsurgical changes with hardware in place spanning C3-6. CT CHEST, ABDOMEN, PELVIS WITH CONTRAST: The lungs are clear.No pneumothorax or pericardial/pleural fluid. Mild esophageal thickening is present. is noted. The liver is mildly enlarged. No concerning pelvic findings. No fractures. Advanced lower lumbar degenerative changes with moderate anterolisthesis of L5 on S1. IMPRESSION: Negative for acute traumatic findings. . 22:38 Differential diagnosis: intra-abdominal injury, closed head injury, cardiac contusion, sp4 extremity fracture, C spine fracture, T spine fracture, L spine fracture. Data reviewed: vital signs, nurses notes, EMS record, old medical records, lab test result(s), radiologic studies, CT scan, plain films. Consideration of Admission/Observation Patient was admitted/placed on observation. Escalation of care including admission/observation considered. Management of patient was discussed with the following: Hospitalist: Dr. Talley . 22:51 ED course: Patient was reported to have significant blood loss by Dr. Faith. This time sp4 patient warrants admission for observation hemoglobin recheck and blood pressure monitoring. . 07/02 17:56 Order name: CBC with Diff; Complete Time: 21:59 rn 07/02 17:56 Order name: Basic Metabolic Panel; Complete Time: 20:26 rn 07/02 17:56 Order name: Protime (+inr); Complete Time: 20:26 rn 07/02 17:56 Order name: Ptt, Activated; Complete Time: 20:26 rn 07/02 19:49 Order name: CBC Smear Scan; Complete Time: 21:59 EDMS 07/02 23:25 Order name: Urinalysis w/ reflexes EDMS 07/02 23:25 Order name: Basic Metabolic Panel EDMS 07/02 23:25 Order name: Basic Metabolic Panel; Complete Time: 09:45 EDMS 07/02 23:25 Order name: CBC with Automated Diff EDMS 07/02 23:25 Order name: CBC with Automated Diff; Complete Time: 09:45 EDMS 07/02 17:56 Order name: CT Traumagram (Head C Spine CAP W Con); Complete Time: 21:59 rn 07/02 17:56 Order name: XRAY Femur LEFT; Complete Time: 18:59 rn 07/02 17:56 Order name: XRAY Femur RIGHT; Complete Time: 18:59 rn 07/02 17:56 Order name: XRAY Foot RIGHT 3 View; Complete Time: 18:59 rn 07/02 17:56 Order name: IV Start; Complete Time: 19:17 rn 07/02 17:56 Order name: Wound Care; Complete Time: 20:04 rn 07/02 19:30 Order name: C-Collar; Complete Time: 22:48 rn Administered Medications: 19:20 Drug: Ondansetron IVP 4 mg IVP once; over 2 minutes Route: IVP; Site: left antecubital; ha1 19:45 Follow up: Response: No adverse reaction ha1 19:22 Drug: morphine IVP or IV 4 mg IVP once over 4 mins Route: IVP; Infused Over: 4 mins; ha1 Site: left antecubital; 19:45 Follow up: Response: No adverse reaction; Pain is unchanged, physician notified; RASS: ha1 Restless (+1) 19:45 Drug: morphine IVP or IV 4 mg IVP once over 4 mins Route: IVP; Infused Over: 4 mins; ha1 Site: left antecubital; 20:00 Follow up: Response: No adverse reaction; Pain is decreased; RASS: Alert and Calm (0) ha1 20:08 Drug: Lidocaine Infiltration (1 %) 20 ml 20 ml Infiltration once; to bedside {Note: ha1 administered by Dr. Faith.} Volume: 20 ml; Route: Infiltration; 21:00 Follow up: Response: No adverse reaction ha1 22:15 Drug: Tetanus Toxoid,Adsorbed IM 0.5 ml IM once; Provide Vaccine Information Statement ha1 (VIS). {Operating Room Surgical Technician: beSUCCESS; Exp: FriOct 29 2024; Lot #: [id number]; Series: 1 of 1; Patient Consent: Obtained; Date/Time: ; Source Name: Maisha Leo; Source Relationship: Self; Address Information: [address] [place] [address], [facility] [id number]; ; Education: Provided; VIS Presented Date: ; VIS Publication: Tetanus/Diphtheria (Td) Vaccine VIS 09/17/2016 (historic)} Route: IM; Site: left deltoid; 23:00 Follow up: Response: (VIS) Vaccine information sheet provided today. Questions and/or ha1 concerns addressed. VIS edition date: Jan 12, 2021.; No adverse reaction 23:16 Drug: [place] PO 10 mg-325 mg 1 tabs PO once Route: PO; jw7 23:45 Follow up: Response: No adverse reaction; Marked relief of symptoms; Pain is decreased; ha1 RASS: Alert and Calm (0) 23:16 Drug: Ondansetron PO 4 mg PO once Route: PO; jw7 23:45 Follow up: Response: No adverse reaction; Marked relief of symptoms ha1 23:16 Drug: Ketorolac IVP 30 mg IVP once Route: IVP; Site: left antecubital; jw7 23:50 Follow up: Response: No adverse reaction; Pain is decreased ha1 23:40 Drug: Lidocaine-Epinephrine Infiltration -2 % (1:100,000) 10 ml Infiltration once; to ha1 bedside {Note: administered by Dr. Sinclair .} Route: Infiltration; 07/03 01:25 Follow up: Response: No adverse reaction ha1 Disposition Summary: 07/02/23 22:38 Hospitalization Ordered Notes: Hospitalization Status: Observation sp4 Provider: Watson Talley sp4 Condition: Stable sp4 Problem: new sp4 Symptoms: have improved sp4 Bed/Room Type: Standard sp4 Location: Telemetry/MedSurg (observation)(07/03/23 14:44) em1 Room Assignment: 230(07/03/23 14:44) em1 Diagnosis - Acute significant blood loss, left posterior scalp laceration, closed head injury, sp4 acute fall, right foot laceration, right frontal scalp laceration, right forehead laceration, moderate blood loss Discharge Instructions: - Discharge Summary Sheet rn Forms: - Medication Reconciliation Form sp4 - SBAR form sp4 - Leadership Thank You Letter sp4 Prescriptions: - Bactrim DS 800-160 mg Oral Tablet - take 1 tablet ORAL route every 12 hours for 10 days; 20 tablet; Refills: 0, rn Product Selection Permitted Signatures: Dispatcher [employer] EDMS Michael Faith MD MD rn Martinez, Eric em1 Abundio Wu RN RN as6 Lacey Leal RN RN 1 Nichole Bradford, RN RN jw7 Radha Be RN RN ha1 Jersey Sinclair MD MD sp4 Corrections: (The following items were deleted from the chart) 07/02 19:22 18:04 Mechanism of injury: Fall: the patient fell down 3 steps, rn rn 19:30 19:21 Constitutional: This is a well developed, well nourished patient who is awake, rn alert, face with dried blood noted and pressure dressing/wrap around head Head/Face: 2 cm irregular and angulated laceration, partial/near full-thickness right forehead with venous bleeding noted. No arterial bleeding. No foreign body. Galea appears intact Eyes: Pupils equal round and reactive to light, extra-ocular motions intact. ENT: No oral trauma noted Neck: No midline cervical tenderness Chest/axilla: No crepitus. Nontender. Cardiovascular: Regular rate and rhythm. No pulse deficits. Respiratory: No increased work of breathing, no retractions or nasal flaring. Abdomen/GI: Soft, non-tender Skin: Warm, dry MS/ Extremity: Pulses equal, no cyanosis. No gross deformity. Full range of motion of all 4 extremities. Neuro: Awake and alert, GCS 15 rn 19:35 19:21 Constitutional: This is a well developed, well nourished patient who is awake, rn alert, face with dried blood noted and pressure dressing/wrap around head Head/Face: 2 cm irregular and angulated laceration, partial/near full-thickness right forehead with venous bleeding noted. No arterial bleeding. No foreign body. Galea appears intact Eyes: Pupils equal round and reactive to light, extra-ocular motions intact. ENT: No oral trauma noted Neck: No midline cervical tenderness Chest/axilla: No crepitus. Nontender. Cardiovascular: Regular rate and rhythm. No pulse deficits. Respiratory: No increased work of breathing, no retractions or nasal flaring. Abdomen/GI: Soft, non-tender Skin: Warm, dry MS/ Extremity: Pulses equal, no cyanosis. No gross deformity. Full range of motion of all 4 extremities. Neuro: Awake and alert, GCS 15 rn 23:33 22:38 Telemetry/MedSurg (observation) sp4 vc1 23:33 22:38 sp4 vc1 07/03 14:44 07/02 23:33 [facility] ER HOLD vc1 em1 07/03 14:44 07/02 23:33 ERHOLD- vc1 em1
[2023-07-02] MEDS ORDERED: KETOROLAC 30 MG/ML INJ ONE (23:05)
[2023-07-02] MEDS ORDERED: ONDANSETRON 4 MG (ODT) TAB ONE (23:05)
[2023-07-02] MEDS ORDERED: HYDROCODONE/APAP 10/325 TAB ONE (23:05)
[2023-07-02] MEDS ORDERED: ONDANSETRON 4 MG/2 ML VIAL IV PRN (23:20)
--- NOTE | 2023-07-02 23:36 | P.HP ---
Certification for Inpatient Patient admitted to: Observation With expected LOS: <2 Midnights Practitioner: I am a practitioner with admitting privileges, knowledge of patient current condition, hospital course, and medical plan of care. Services: Services provided to patient in accordance with Admission requirements found in Title 42 Section 412.3 of the Code of Federal Regulations Patient History Date of Service: 07/02/23 Reason for admission: Head laceration History of Present Illness: 63 year old female with a history of hypertension, hypothyroidism, COPD, seizure disorder, CVA x3 with residual left sided weakness, CAD, fibromyalgia and tobacco use who presented to the ED following a fall and injury to the scalp. She ambulates with a walker. Patient was climbing up the stairs when she fell and hit the back of her head sustaining injury with severe bleeding. In the ED, she was noted with profuse bleeding from arterial laceration which was sutured. She is currently stable but kept for overnight admission given the amount of profuse bleeding. Allergies Penicillins Allergy (Intermediate, Verified 04/18/19 23:29) Anaphylaxis Home Medications: Amitriptyline [Elavil*] 50 mg PO BEDTIME 09/03/22 Amlodipine [Norvasc*] 10 mg PO BEDTIME 09/03/22 Gabapentin 600 mg PO TID 09/03/22 Trazodone HCl 100 mg PO BEDTIME PRN 09/03/22 levETIRAcetam [Keppra*] 750 mg PO BID 10/27/22 Atorvastatin Calcium [Lipitor*] 40 mg PO BEDTIME #30 tab 11/04/22 Levothyroxine [Synthroid*] 0.125 mg PO DAILYAC #30 tab 11/04/22 ALPRAZolam [Xanax*] 0.5 mg PO TID PRN #30 tab 11/24/22 Midodrine HCl [Proamatine*] 5 mg PO TID #90 tab 11/24/22 Cyclobenzaprine [Flexeril*] 10 mg PO BID 04/04/23 Folic Acid 1 mg PO DAILY 04/04/23 Lamotrigine [Lamictal] 25 mg PO DAILY 04/04/23 Lisinopril [Zestril] 40 mg PO DAILY 04/04/23 Meloxicam [Mobic*] 7.5 mg PO BID 04/04/23 Hydrocodone 10/APAP 325 [[place] [address]] 1 tab PO Q6H PRN #30 tab 04/08/23 Minocycline HCl 100 mg PO BID #14 cap 04/08/23 Silver Sulfadiazine [Silvadene 1% Cream] 1 appl TOP BID #1 tube 04/08/23 - Past Medical/Surgical History Diabetic: No -: Hypothyroidism -: HTN -: Anxiety -: Seizures -: HX [place] x2 -: HX CVA - Left side wekness -: Osteoarthritis -: Hepatitis C -: liver cirrhosis -: Geovanny's paralysis -: Neck Surgery -: Tubal Ligation Psychosocial/ Personal History: Patient was at home with family - Family History Mother -: Heart disease, Diabetes Father -: Other (see notes) Notes: Alzheimers Brother -: Other (see notes) Notes: COPD, Bone Cancer, Back Surgery - Social History Alcohol use: Yes CD- Drugs: Yes Caffeine use: Yes Physical Examination - Physical Exam General: Alert, In no apparent distress, Oriented x3 HEENT: PERRLA, Mucous membr. moist/pink, Other (Head laceration in bandage) Neck: Supple, JVD not distended Respiratory: Clear to auscultation bilaterally, Normal air movement, Diminished Cardiovascular: No edema, Regular rate/rhythm, Normal S1 S2 Gastrointestinal: Normal bowel sounds, Non-distended, No tenderness Musculoskeletal: No swelling, No tenderness Integumentary: No rashes Neurological: Normal gait, Normal speech, Normal strength at 5/5 x4 extr - Studies Laboratory Data (last 24 hrs) 07/02/23 07/02/23 07/02/23 19:34 19:34 19:34 WBC 2.30 L Hgb 12.2 Hct 37.5 Plt Count 115 L PT 12.7 H INR 1.16 APTT 37.3 H Sodium 141 Potassium 3.7 BUN 12 Creatinine 0.76 Glucose 88 Assessment and Plan - Plan Head laceration s/p fall Provoked fall while climbing staircase Monitor in observation repeat H&H given profuse bleeding and suturing Chronic problems Hypothyroidism Polypharmacy Fibromyalgia Neuropathy CAD COPD Seizure disorder Bipolar disorder Hypertension Tobacco use Chronic meds Amitriptyline Amlodipine Gabapentin Trazodone Keppra Levothyroxine Atorvastatin Flexeril Lamictal Lisinopril Hydrocodone 10 - Advance Directives Does patient have a Living Will: No Does patient have a Durable POA for Healthcare: No
[2023-07-03 05:20] LABS: Absolute Lymphocytes (CBC) 0.8 K/uL (0.7-4.9); Hematocrit 36.6 % (36.0-45.0); Lymphocytes % 22.5 % (15.3-44.8); MCV 90.1 fL (80-100); Platelets 119 thou/uL (152-406); RBC Red Blood Cell Count 4.06 M/uL (3.86-4.86)
[2023-07-03 05:28] LABS: Potassium 5.1 mEq/L (3.5-5.1)
[2023-07-03 06:18] VITALS: BMI 27.4
[2023-07-03] MEDS ORDERED: INFLUENZA VACCINE (for 6+ mo) 0.5 ML DOSE IMVAC ONE ×2 (08:00→22:00)
[2023-07-03] MEDS ORDERED: PNEUMOCOCCAL VACCINE 0.5 ML IMVAC ONE (08:00)
[2023-07-03] MEDS ORDERED: HYDROCODONE/APAP 5/325 MG TAB ONE (08:39)
[2023-07-03] MEDS: HYDROCODONE/APAP 5/325 MG TAB PO PRN ×2 (09:50→17:00)
[2023-07-03] MEDS: MORPHINE 2 MG/ML SYR IV PRN ×2 (11:50→20:52)
[2023-07-03] MEDS ORDERED: dexAMETHasone 4 MG/ML VIAL IV ONE (11:51)
[2023-07-03] MEDS ORDERED: dexAMETHasone 10 MG/ML VIAL ONE (11:58)
[2023-07-03] MEDS ORDERED: MORPHINE 2 MG/ML SYR ONE ×2 (11:59→20:50)
[2023-07-04] MEDS: HYDROCODONE/APAP 5/325 MG TAB PO PRN ×3 (04:28→20:33)
[2023-07-04] MEDS: levETIRAcetam 500 MG TAB PO SCH (20:27)
[2023-07-04] MEDS: MIDODRINE HCL 5 MG TABLET PO SCH (20:28)
[2023-07-04] MEDS: SILVER SULFADIAZINE 1% 25 GM TOP SCH (20:37)
[2023-07-04] MEDS ORDERED: ATORVASTATIN 40 MG TAB PO SCH (21:00)
[2023-07-04 21:59] VITALS: O2SAT 97
[2023-07-05] MEDS ORDERED: FENTANYL CITR 100 MCG/2 ML IV PRN (00:04)
[2023-07-05] MEDS: HYDROCODONE/APAP 5/325 MG TAB PO PRN (06:02)
[2023-07-05] MEDS ORDERED: LEVOTHYROXINE SOD 0.125 MG TAB PO SCH (06:30)
[2023-07-05] MEDS: MIDODRINE HCL 5 MG TABLET PO SCH ×2 (09:00→14:45)
[2023-07-05] MEDS: levETIRAcetam 500 MG TAB PO SCH (09:03)
[2023-07-05 09:31] LABS: Specific Gravity 1.011 (1.005-1.030); Urine Bacteria <20 /HPF (<20); Urine Bilirubin NEGATIVE (Negative); Urine Blood Negative (Negative); Urine Clarity Extremely Turbid (Clear); Urine Color Light-Yellow (Yellow); Urine Glucose NEGATIVE (Negative); Urine Mucus Slight /HPF (None Seen); Urine Protein NEGATIVE (Negative); Urine RBC <5 /HPF (None Seen); Urine Urobilinogen Normal (Normal)
--- NOTE | 2023-07-05 09:58 | P.PN ---
Subjective Date of Service: 07/05/23 Chief Complaint: Head laceration Reported fall, head injury, pain control as needed analgesics - Physical Exam General: Alert, In no apparent distress, Oriented x3 HEENT: PERRLA, Mucous membr. moist/pink, Other (Head laceration in bandage) Neck: Supple, JVD not distended Respiratory: Clear to auscultation bilaterally, Normal air movement, Diminished Cardiovascular: No edema, Regular rate/rhythm, Normal S1 S2 Gastrointestinal: Normal bowel sounds, Non-distended, No tenderness Musculoskeletal: No swelling, No tenderness Integumentary: No rashes Neurological: Normal gait, Normal speech, Normal strength at 5/5 x4 extr Review of Systems per HPI Physical Examination - Vital Signs Temperature: 97.8 F Blood Pressure: 116/65 Pulse: 75 Respirations: 16 Pulse Ox (%): 95 Assessment And Plan - Plan Assessment and Plan - Plan Head laceration s/p fall Provoked fall while climbing staircase Monitor in observation repeat H&H given profuse bleeding and suturing Physical therapy evaluation, ambulates with a walker at baseline Wound care, forehead laceration Acute cystitis Leukoesterase 500 Macrobid 1 p.o. twice daily for 5 days Hypotension Midodrine Chronic problems Hypothyroidism Polypharmacy Fibromyalgia Neuropathy CAD COPD Seizure disorder Bipolar disorder Hypertension Resume home medication Tobacco use Chronic meds Polypharmacy Amitriptyline Amlodipine Gabapentin Trazodone Keppra Levothyroxine Atorvastatin Flexeril Lamictal Lisinopril Hydrocodone 10 Full code DVT SCDs Diet cardiac Disposition Home in an apartment with home health - Code Status/Comfort Care Code Status: Full Code Critical Care: No Time Spent Managing PTS Care (In Minutes): 35
[2023-07-05] MEDS: SILVER SULFADIAZINE 1% 25 GM TOP SCH (10:44)
[2023-07-05] MEDS ORDERED: NITROFURAN MACRO 100 MG CAP PO SCH (11:00)
[2023-07-05 12:40] VITALS: BP 122/68; TEMP 98
--- NOTE | 2023-07-05 16:31 | P.DS ---
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 She ambulates with a walker. Patient was climbing up the stairs when she fell and hit the back of her head sustaining injury with severe bleeding. In the ED, she was noted with profuse bleeding from arterial laceration which was sutured. She is currently stable but kept for overnight admission given the amount of profuse bleeding. - Physical Exam General: Alert, In no apparent distress, Oriented x3 HEENT: PERRLA, Mucous membr. moist/pink, Other (Head laceration in bandage) Neck: Supple, JVD not distended Respiratory: Clear to auscultation bilaterally, Normal air movement, Diminished Cardiovascular: No edema, Regular rate/rhythm, Normal S1 S2 Gastrointestinal: Normal bowel sounds, Non-distended, No tenderness Musculoskeletal: No swelling, No tenderness Integumentary: No rashes Neurological: Normal gait, Normal speech, Normal strength at 5/5 x4 extr Hospital Course: 63-year-old female with a past medical history hypertension, hypothyroidism, polypharmacy, neuropathy, CAD, COPD, seizure disorder, bipolar presented with fall, head laceration, Was noted to have acute cystitis, head laceration. Was treated with physical therapy evaluation, p.o. antibiotics, IV fluids, Condition improved with treatment. Stable for discharge with follow-up appointment with primary care physician. Plan to discharge home with home health pending with [facility]. PROBLEM: Fall, Head laceration, Acute cystitis, Continue home medicines as previously prescribed Fall precaution GOAL: Clear understanding of disease process INSTRUCTIONS: Physician Discharge Instructions: -DC IV and DC home -Follow-up with PCP in 1 to 2 weeks -Please call Dr. Hopper at [phone] if any questions regarding hospital stay -Please call nursing station at [phone] if any nursing or medication questions -Return to the emergency room if symptoms worsen Diet: ADA, low sodium Activity: Fall precautions DME: Date Ordered: Name of Company: [employer] Services Needed: None Date or Referral: IMMUNIZATION Influenza Vaccine Indicated: Influenza Vaccine Given: Date Given: Pneumonia Vaccine Indicated: Pneumonia Vaccine Given: Date Given: Vital Signs/Physical Exam: Temp Pulse Resp BP Pulse Ox 98.0 F 82 16 122/68 98 07/05/23 12:00 07/05/23 12:00 07/05/23 12:00 07/05/23 12:00 07/05/23 12:00 Laboratory Data at Discharge: WBC 3.60 thou/uL (4.3-10.9) L 07/03/23 05:05 Hgb 12.0 g/dL (12.0-15.0) 07/03/23 05:05 Hct 36.6 % (36.0-45.0) 07/03/23 05:05 Plt Count 119 thou/uL (152-406) L 07/03/23 05:05 PT 12.7 SECONDS (9.5-12.5) H 07/02/23 19:34 INR 1.16 07/02/23 19:34 APTT 37.3 SECONDS (24.3-36.9) H 07/02/23 19:34 Sodium 141 mEq/L (136-145) 07/03/23 05:05 Potassium 5.1 mEq/L (3.5-5.1) D 07/03/23 05:05 BUN 14 mg/dL (7-18) 07/03/23 05:05 Creatinine 0.91 mg/dL (0.55-1.02) 07/03/23 05:05 Glucose 112 mg/dL (74-106) H 07/03/23 05:05 Home Medications: Gabapentin 600 mg PO TID 09/03/22 Trazodone HCl 100 mg PO BEDTIME PRN 09/03/22 levETIRAcetam [Keppra*] 750 mg PO BID 10/27/22 Atorvastatin Calcium [Lipitor*] 40 mg PO BEDTIME #30 tab 11/04/22 Levothyroxine [Synthroid*] 0.125 mg PO DAILYAC #30 tab 11/04/22 ALPRAZolam [Xanax*] 0.5 mg PO TID PRN #30 tab 11/24/22 Midodrine HCl [Proamatine*] 5 mg PO TID #90 tab 11/24/22 Folic Acid 1 mg PO DAILY 04/04/23 Lamotrigine [Lamictal] 25 mg PO DAILY 04/04/23 Meloxicam [Mobic*] 7.5 mg PO BID 04/04/23 Silver Sulfadiazine [Silvadene 1% Cream] 1 appl TOP BID #1 tube 04/08/23 Hydrocodone 10/APAP 325 [Emeigh 10/325*] 1 tab PO Q6H PRN #30 tab 07/05/23 Minocycline HCl 100 mg PO BID #14 cap 07/05/23 Mupirocin Oint [Bactroban 2% Ointment] 22 appl TOP TID #1 tube 07/05/23 New Medications: Mupirocin Oint [Bactroban 2% Ointment] 22 appl TOP TID #1 tube Minocycline HCl 100 mg PO BID #14 cap Hydrocodone 10/APAP 325 [Emeigh 10/325*] 1 tab PO Q6H PRN #30 tab PRN Reason: Pain Physician Discharge Instructions: -DC IV and DC home -Follow-up with PCP in 1 to 2 weeks -Follow-up with Neurology in 1-2 weeks -Follow-up with Home health for Nursing care, PT, and wound care. -Please use walker to ambulate -Please call Dr. Hopper at [phone] if any questions regarding hospital stay -Please call nursing station at [phone] if any nursing or medication questions -Return to the emergency room if symptoms worsen Diet: AHA Activity: Fall precautions Followup: Acosta Tinoco FNP [Primary Care Provider] - Time spent managing pt's care (in minutes): 55
== END 2023-07-05 15:59 | disposition home or self-care (01) ==
LOC: ER 17:47 → ERHOLD 23:15 → 2ND 07-03 15:11
PROVIDERS: ADMIT Internal Medicine; ATTEND Hospitalist
PROC: 0JQ10ZZ Repair Face Subcutaneous Tissue and Fascia, Open Approach (ICD-10-PCS; principal; 2023-07-02)
PROC: 0JQQ0ZZ Repair Right Foot Subcutaneous Tissue and Fascia, Open Approach (ICD-10-PCS; 2023-07-02)
DX: S01.01XA Laceration without foreign body of scalp, initial encounter (principal); S01.81XA Laceration without foreign body of other part of head, initial encounter; S91.311A Laceration without foreign body, right foot, initial encounter; W10.9XXA Fall (on) (from) unspecified stairs and steps, initial encounter; Y93.9 Activity, unspecified; Y92.9 Unspecified place or not applicable; R58 Hemorrhage, not elsewhere classified; I10 Essential (primary) hypertension; I69.354 Hemiplegia and hemiparesis following cerebral infarction affecting left non-dominant side; M79.7 Fibromyalgia; R56.9 Unspecified convulsions; N30.00 Acute cystitis without hematuria; I25.10 Atherosclerotic heart disease of native coronary artery without angina pectoris; G62.9 Polyneuropathy, unspecified; F31.9 Bipolar disorder, unspecified; Z23 Encounter for immunization
CPT/HCPCS: 87088; 85025 ×2; 81001; 87086; 80048 ×2; 36415; 85610; 85730; 70450; 72125; 71260; 74177; 73630; 73552 ×2; 90471 ×2; 97116 ×2; 97161; 97530 ×2; 12011; 12002; 12001; Q9967; Q2035; Q0162; J2001; J3010; J1100; J2270 ×2; J2405; G0378

== ENCOUNTER 2023-07-23 14:22 | Inpatient (IN) | payer OTHER ==
--- NOTE | 2023-07-23 15:32 | RAD REPORT ---
EXAM DESCRIPTION: RAD - Chest Single View - 07/23/2023 2:47 pm CLINICAL HISTORY: Dyspnea;Cough Chest pain. COMPARISON: Chest Single View dated 04/04/2023; Chest Single View dated 03/10/2023; Chest Single View dated 11/28/2022; Chest Single View dated 11/25/2022 FINDINGS: Portable technique limits examination quality. Mild bilateral pulmonary opacities are present. The heart is mildly enlarged in size. No displaced fr actures. IMPRESSION: Mild CHF.
[2023-07-23 16:06] LABS: Protime INR 1.15
[2023-07-23 16:07] LABS: Absolute Lymphocytes (CBC) 1.1 K/uL (0.7-4.9); Hematocrit 43.3 % (36.0-45.0); Lymphocytes % 31.3 % (15.3-44.8); MCV 87.8 fL (80-100); MPV 7.3 fL (7.6-11.3); Platelets 141 thou/uL (152-406); RBC Red Blood Cell Count 4.93 M/uL (3.86-4.86)
[2023-07-23] MEDS ORDERED: NA CHLORIDE 0.9% 250 ML ONE (16:12)
[2023-07-23] MEDS ORDERED: VANCOMYCIN 1 GM/VIAL ONE (16:12)
--- NOTE | 2023-07-23 16:17 | ER ---
Nurse's Notes [facility] Name: Maisha Leo Age: 63 yrs Sex: Female : 1960 Arrival Date: 07/23/2023 Time: 14:22 Bed 18 Private MD: Diagnosis: Wound dehiscence of right foot;Wound infection right foot;Muscle weakness (generalized) Presentation: 07/23 14:30 Coronavirus screen: Client denies travel out of the [place] in the last 14 days. 1 14:30 Method Of Arrival: EMS: [facility] 1 14:30 Ebola Screen: Patient denies travel to an Ebola-affected area in the 21 days before ll1 illness onset. 14:33 Chief complaint: Patient states: Weak, lethargic, legs feel heavy. Head wound from 2 ll1 weeks ago is healing. R foot wound getting worse. No fever. Initial Sepsis Screen: Does the patient meet any 2 criteria? No. Patient's initial sepsis screen is negative. Does the patient have a suspected source of infection? Yes: Skin breakdown/wound. Risk Assessment: Do you want to hurt yourself or someone else? Patient reports no desire to harm self or others. Onset of symptoms was July 17, 2023. 14:33 Acuity: ARTURO 3 ll1 Triage Assessment: 14:35 General: Behavior is calm, cooperative, drowsy. db Historical: - Allergies: 14:29 PENICILLINS; ll1 - PMHx: 14:29 ADD/ADHD; Bipolar disorder; Myocardial infarction; CVA; Left sided weakness; ll1 Cerebrovascular accident; COPD; Cirrhosis; Hypertension; Fibromyalgia; Hypothyroidism; Seizures; - PSHx: 14:29 right big toe; ll1 - Immunization history:: Adult Immunizations up to date. - Social history:: Smoking status: Patient reports the use of cigarette tobacco products, smokes one-half pack cigarettes per day. - Family history:: not pertinent. - Hospitalizations: : No recent hospitalization is reported. Screenin:06 [facility] ED Fall Risk Assessment (Adult) History of falling in the last 3 months, db including since admission Yes- single mechanical fall (1 pt) Confusion or Disorientation No (0 pts) Intoxicated or Sedated No (0 pts) Impaired Gait Yes (1 pt) Mobility Assist Device Used Yes (1 pt) Altered Elimination Yes (1 pt) Score/Fall Risk Level 3 or more points = High Risk Oriented to surroundings, Maintained a safe environment, Educated pt \T\ family on fall prevention, incl call for assistance when getting out of bed. Abuse screen: Denies threats or abuse. Denies injuries from another. Nutritional screening: No deficits noted. Tuberculosis screening: No symptoms or risk factors identified. Assessment: 15:00 Reassessment: Patient and/or family updated on plan of care and expected duration. Pain db level reassessed. Patient is alert, oriented x 3, equal unlabored respirations, skin warm/dry/pink. WOUND TO RIGHT FOOT AND FOREHEAD. PT STATES FEELS WEAK. General: Appears unkempt. Pain: Complains of pain in face and left foot. Neuro: Level of Consciousness is awake, alert, obeys commands, Oriented to person, place, time, situation. Respiratory: Airway is patent Respiratory effort is even, unlabored, Respiratory pattern is regular, symmetrical. 15:10 Reassessment: PATIENT CHANGED INTO GOWN AND PURWICK PLACED. PATIENT WEAK AND db PARTICIPATED MINIMALLY. NOTED WOUND TO FOREHEAD AND RIGHT FOOT. 16:00 Reassessment: Patient appears in no apparent distress at this time. Patient and/or db family updated on plan of care and expected duration. Pain level reassessed. Patient is alert, oriented x 3, equal unlabored respirations, skin warm/dry/pink. 17:05 Reassessment: Patient appears in no apparent distress at this time. Patient and/or db family updated on plan of care and expected duration. Pain level reassessed. Patient is alert, oriented x 3, equal unlabored respirations, skin warm/dry/pink. SUTURES REMOVED FROM FOREHEAD X 4 AND RIGHT FOOT X 1. SKIN ON FOREHEAD HAS SCAB AND WOUND ON FOOT IS OPEN NON HEALING. 17:43 Reassessment: CALLED TO GIVE REPORT TO 2ND FLOOR. NURSE NOT READY PENDING NURSE TO CALL db BACK. 18:04 Reassessment: PHLEBOTOMY AT PATIENT BEDSIDE FOR BLOOD DRAW. db 18:10 Reassessment: Patient appears in no apparent distress at this time. Patient and/or db family updated on plan of care and expected duration. Pain level reassessed. REPORT GIVEN TO AZIZA GIL. 18:14 Reassessment: ULTRASOUND AT PATIENT BEDSIDE. db Vital Signs: 14:33 BP 152 / 111; Pulse 83; Resp 18; Temp 97.7(O); Pulse Ox 96% on R/A; Pain 7/10; ll1 15:15 BP 163 / 103; Pulse 83; Resp 18; Pulse Ox 94% on R/A; db 15:24 BP 164 / 98; Pulse 81; Resp 18; Pulse Ox 95% on R/A; db 16:46 BP 162 / 111; Pulse 82; Resp 18; Pulse Ox 96% on R/A; db 17:30 BP 165 / 108; Pulse 83; Resp 14; Pulse Ox 96% on R/A; db 14:33 Pain Scale: Adult ll1 ED Course: 14:29 Patient arrived in ED. ll1 14:29 Arm band placed on Patient placed in an exam room, on a stretcher. ll1 14:30 Michael Faith MD is Attending Physician. rn 14:34 Triage completed. ll1 14:42 Alysia Soto, RN is Primary Nurse. db 14:49 Chest Single View XRAY In Process Unspecified. EDMS 15:05 First set of blood cultures drawn. db 15:05 Missed attempt(s): 22 gauge in right antecubital area. Bleeding controlled, band aid db applied, catheter tip intact. 15:33 Second set of blood cultures drawn by me. db 15:50 Lab(s) recollected, by ED staff, sent to lab. Inserted saline lock: 22 gauge in left db forearm, using aseptic technique. Blood collected. 16:03 Inserted saline lock: 22 gauge in left wrist, using aseptic technique. Blood collected. db 16:16 Berna Dempsey MD is Hospitalizing Provider. rn 17:44 Patient has correct armband on for positive identification. Bed in low position. Call db light in reach. Side rails up X 1. Client placed on continuous cardiac and pulse oximetry monitoring. NIBP monitoring applied. Warm blanket given. 17:44 No provider procedures requiring assistance completed. Patient admitted, IV remains in db place. 18:10 Provided Education on: ADMISSION. db Administered Medications: 16:13 Drug: vancoMYCIN IVPB 1 grams IVPB once over 2 hrs Route: IVPB; Infused Over: 2 hrs; db Site: left wrist; 18:12 Follow up: Response: No adverse reaction; IV Intake: 250ml db 18:13 Follow up: IV Status: Completed infusion db Medication: 17:44 VIS not applicable for this client. db Intake: 18:12 IV: 250ml; Total: 250ml. db Outcome: 16:17 Decision to Hospitalize by Provider. rn 17:44 Admitted to ER Hold. Please see [facility] for further documentation. db 17:44 Condition: stable 17:44 Instructed on the need for admit, 18:27 Patient left the ED. db Signatures: Dispatcher [employer] EDMichael Roper MD MD rn Lewis, Lynsay, RN RN [facility] Alysia Soto RN RN db
--- NOTE | 2023-07-23 16:17 | EDPHYS ---
Physician Documentation [facility] Name: Maisha Leo Age: 63 yrs Sex: Female : 1960 Arrival Date: 07/23/2023 Time: 14:22 Bed 18 Private MD: ED Physician Michael Faith HPI: 07/23 16:06 This 63 yrs old Female presents to ER via EMS with complaints of generalized weakness, rn internship infection. 16:06 Patient brought in by EMS for generalized weakness, not feeling well, and wound rn infection of the right foot. Patient was seen 3 weeks ago here following fall and admitted to the hospital. Patient reports since discharge has been progressively more weak, has not followed up for suture or staple removal. Stitches on the right foot popped open and now wound is draining and foul smell. Patient reports so we can stand. EMS confirms that patient unable to stand at home when picked her up.. Onset: The symptoms/episode began/occurred at an unknown time. Severity of symptoms: At their worst the symptoms were moderate in the emergency department the symptoms are unchanged. The patient has not experienced similar symptoms in the past. The patient has been recently seen at the [facility] Emergency Department, The patient has been recently been admitted at [facility]. Historical: - Allergies: 14:29 PENICILLINS; ll1 - PMHx: 14:29 ADD/ADHD; Bipolar disorder; Myocardial infarction; CVA; Left sided weakness; ll1 Cerebrovascular accident; COPD; Cirrhosis; Hypertension; Fibromyalgia; Hypothyroidism; Seizures; - PSHx: 14:29 right big toe; ll1 - Immunization history:: Adult Immunizations up to date. - Social history:: Smoking status: Patient reports the use of cigarette tobacco products, smokes one-half pack cigarettes per day. - Family history:: not pertinent. - Hospitalizations: : No recent hospitalization is reported. ROS: 16:06 Constitutional: Negative for fever, chills, and weight loss, Cardiovascular: Negative rn for chest pain, palpitations, and edema, Respiratory: Positive for shortness of breath and cough Abdomen/GI: Negative for abdominal pain, nausea, vomiting, diarrhea, and constipation, Back: Negative for injury and pain, MS/Extremity: Negative for injury and deformity, Skin: Positive for wound infection right foot Neuro: Positive for generalized weakness Exam: 16:06 Constitutional: This is a well developed, well nourished patient who is awake, alert, rn and in no acute distress. Head/Face: Normocephalic, left posterior parietal scabbed wound, unable to see or palpate sutures or estuardo. ENT: Dry mucous membranes Cardiovascular: Regular rate and rhythm. No pulse deficits. Respiratory: Mild tachypnea. No retractions. Bilateral crackles present Abdomen/GI: Soft, non-tender Skin: Warm, dorsum of right foot with wound dehiscence, circular wound and ulceration with purulence and foul smell. MS/ Extremity: Pulses equal, no cyanosis. Neurovascular intact. Full, normal range of motion. Equal circumference. Neuro: Awake and alert, GCS 15, oriented to person, place, time, and situation. Cranial nerves II-XII grossly intact. Motor strength 3+/5 in all extremities. Sensory grossly intact. Vital Signs: 14:33 BP 152 / 111; Pulse 83; Resp 18; Temp 97.7(O); Pulse Ox 96% on R/A; Pain 7/10; ll1 15:15 BP 163 / 103; Pulse 83; Resp 18; Pulse Ox 94% on R/A; db 15:24 BP 164 / 98; Pulse 81; Resp 18; Pulse Ox 95% on R/A; db 16:46 BP 162 / 111; Pulse 82; Resp 18; Pulse Ox 96% on R/A; db 17:30 BP 165 / 108; Pulse 83; Resp 14; Pulse Ox 96% on R/A; db 14:33 Pain Scale: Adult ll1 MDM: 14:30 Patient medically screened. rn 16:06 Differential Diagnosis Wound dehiscence, cellulitis, wound infection, dehydration, CHF rn exacerbation, COPD. Data reviewed: vital signs, nurses notes, and as a result, I will admit patient. Consideration of Admission/Observation Patient was admitted/placed on observation. Escalation of care including admission/observation considered. Care significantly affected by the following chronic conditions: Hypertension. Counseling: I had a detailed discussion with the patient and/or guardian regarding the historical points, exam findings, and any diagnostic results supporting the discharge/admit diagnosis, lab results, the need for further work-up and treatment in the hospital. 07/23 14:38 Order name: Blood Culture Adult (2) rn 07/23 14:38 Order name: CBC with Diff; Complete Time: 16:11 rn 07/23 14:38 Order name: CMP; Complete Time: 16:27 rn 07/23 14:38 Order name: Lactate w/ 2H reflex if indic.; Complete Time: 16:05 rn 07/23 14:38 Order name: Protime (+inr); Complete Time: 16:11 rn 07/23 14:38 Order name: Ptt, Activated; Complete Time: 16:11 rn 07/23 14:38 Order name: Wound Culture rn 07/23 15:39 Order name: BNP; Complete Time: 16:57 rn 07/23 17:28 Order name: Lactate w/ 2H reflex if indic. EDMS 07/23 17:28 Order name: Liver (Hepatic) Function EDMS 07/23 17:28 Order name: Urinalysis w/ reflexes EDMS 07/23 17:28 Order name: CBC with Automated Diff EDMS 07/23 17:28 Order name: CBC with Automated Diff EDMS 07/23 17:28 Order name: CBC with Automated Diff EDMS 07/23 17:28 Order name: CBC with Automated Diff EDMS 07/23 17:28 Order name: CBC with Automated Diff EDMS 07/23 17:28 Order name: CBC with Automated Diff EDMS 07/23 17:28 Order name: Comprehensive Metabolic Panel EDMS 07/23 17:28 Order name: Comprehensive Metabolic Panel EDMS 07/23 17:28 Order name: Comprehensive Metabolic Panel EDMS 07/23 17:28 Order name: Comprehensive Metabolic Panel EDMS 07/23 17:28 Order name: Comprehensive Metabolic Panel EDMS 07/23 17:28 Order name: Comprehensive Metabolic Panel EDMS 07/23 17:28 Order name: Magnesium EDMS 07/23 17:28 Order name: Magnesium EDMS 07/23 17:28 Order name: Magnesium EDMS 07/23 14:38 Order name: Chest Single View XRAY; Complete Time: 15:39 rn 07/23 17:28 Order name: Lower Extremity Arterial Bilat EDMS 07/23 14:38 Order name: EKG; Complete Time: 14:38 rn 07/23 17:28 Order name: CONS Physician Consult EDMS 07/23 17:28 Order name: Physical Therapy Consult EDMS 07/23 14:38 Order name: Accucheck; Complete Time: 16:03 rn 07/23 14:38 Order name: Cardiac monitoring; Complete Time: 16:03 rn 07/23 14:38 Order name: EKG - Nurse/Tech; Complete Time: 16:03 rn 07/23 14:38 Order name: IV Saline Lock - Large Bore; Complete Time: 16:03 rn 07/23 14:38 Order name: Labs collected and sent; Complete Time: 16: rn 07/23 14:38 Order name: O2 Per Protocol; Complete Time: 16: rn 07/23 14:38 Order name: O2 Sat Monitoring; Complete Time: 16: rn 07/23 14:38 Order name: Vital Signs; Complete Time: 16: rn 07/23 15:46 Order name: Labs - recollect needed: blue, green, lavender; Complete Time: 16:03 ds4 Administered Medications: 16:13 Drug: vancoMYCIN IVPB 1 grams IVPB once over 2 hrs Route: IVPB; Infused Over: 2 hrs; db Site: left wrist; 18:12 Follow up: Response: No adverse reaction; IV Intake: 250ml db 18:13 Follow up: IV Status: Completed infusion db Disposition Summary: 07/23/23 16:17 Hospitalization Ordered Notes: Hospitalization Status: Inpatient Admission rn Provider: Berna Dempsey rn Location: Telemetry/MedSurg (Inpatient) rn Condition: Stable rn Problem: new rn Symptoms: have improved rn Bed/Room Type: Standard rn Room Assignment: 205(07/23/23 17:35) as6 Diagnosis - Wound dehiscence of right foot rn - Wound infection right foot rn - Muscle weakness (generalized) rn Forms: - Medication Reconciliation Form rn - SBAR form rn - Leadership Thank You Letter rn Signatures: Dispatcher [employer] Priya Sevilla FNP-C POCKET GRINDER OPERATOR-Csnw Michael Faith MD MD rn Swanson, Donovan ds4 Zayda Aldrich RN RN ll1 Abundio Wu RN RN as6 Alysia Soto, RN RN db Corrections: (The following items were deleted from the chart) 17:35 16:17 rn as6
[2023-07-23 16:22] LABS: Albumin 2.6 g/dL (3.4-5.0); Bilirubin Total 1.3 mg/dL (0.2-1.0); Potassium 3.9 mEq/L (3.5-5.1); Protein, Total 9.4 g/dL (6.4-8.2)
[2023-07-23] MEDS: VANCOMYCIN 1 GM in NA CHLORIDE 0.9% 250 ML IVPB SCH (17:10)
--- NOTE | 2023-07-23 17:37 | P.HP ---
Certification for Inpatient With expected LOS: >2 Midnights Patient will require the following post-hospital care: Other (pt has 5 day/wk home health) Practitioner: I am a practitioner with admitting privileges, knowledge of patient current condition, hospital course, and medical plan of care. Services: Services provided to patient in accordance with Admission requirements found in Title 42 Section 412.3 of the Code of Federal Regulations <Priya Quigley - Last Filed: 07/23/23 18:39> Patient History Date of Service: 07/23/23 <Berna Dempsey - Last Filed: 07/23/23 17:50> Date of Service: 07/23/23 Primary Care Provider: Seeing someone in [place] - Dr. Rosario? Reason for admission: lactic acidosis, foot wound, deconditioning History of Present Illness: Rebeca Leo is a 62-year-old female patient with a past medical history of hypertension, dyslipidemia, hypothyroidism, PAD, CVA, CA, cirrhosis, hepatitis C, seizure disorder and bipolar disorder. She presented to the ER on July 02, 2023 after a fall down 4 stairs and was evaluated in the emergency room. She arrives today to the emergency room with a complaint of worsening weakness since that time: sutures remain in place to her forehead and right foot. Her right foot wound has not healed, right foot is mildly swollen. The patient states she lives with "an old man and his " and she receives home health services 5 days a week. She states she has not been able to bear weight to right foot for about 5 weeks. In the emergency room she was found to have some lactic acidosis and will be admitted for further assessment of wound. - Past Medical/Surgical History Diabetic: No -: Hypothyroidism -: HTN -: Anxiety -: Seizures -: HX CA x2 -: HX CVA - Left side wekness -: Osteoarthritis -: Hepatitis C -: liver cirrhosis -: Geovanny's paralysis -: Neck Surgery -: Tubal Ligation Psychosocial/ Personal History: Patient states she lives with "an old man and his " - Family History Mother -: Heart disease, Diabetes Father Notes: Alzheimers Brother -: Other (see notes) Notes: COPD, Bone Cancer, Back Surgery - Social History Smoking Status: Current some day smoker Alcohol use: Yes CD- Drugs: Yes Caffeine use: Yes <Priya Quigley - Last Filed: 07/23/23 18:39> Allergies Penicillins Allergy (Intermediate, Verified 04/18/19 23:29) Anaphylaxis Home Medications: Gabapentin 600 mg PO TID 09/03/22 Trazodone HCl 100 mg PO BEDTIME PRN 09/03/22 levETIRAcetam [Keppra*] 750 mg PO BID 10/27/22 Atorvastatin Calcium [Lipitor*] 40 mg PO BEDTIME #30 tab 11/04/22 Levothyroxine [Synthroid*] 0.125 mg PO DAILYAC #30 tab 11/04/22 ALPRAZolam [Xanax*] 0.5 mg PO TID PRN #30 tab 11/24/22 Midodrine HCl [Proamatine*] 5 mg PO TID #90 tab 11/24/22 Folic Acid 1 mg PO DAILY 04/04/23 Lamotrigine [Lamictal] 25 mg PO DAILY 04/04/23 Meloxicam [Mobic*] 7.5 mg PO BID 04/04/23 Silver Sulfadiazine [Silvadene 1% Cream] 1 appl TOP BID #1 tube 04/08/23 Hydrocodone 10/APAP 325 [[place] 10/325*] 1 tab PO Q6H PRN #30 tab 07/05/23 Minocycline HCl 100 mg PO BID #14 cap 07/05/23 Mupirocin Oint [Bactroban 2% Ointment] 22 appl TOP TID #1 tube 07/05/23 Hydrocodone 7.5/APAP 325 [[place] 7.5/325 mg] 1 tab PO Q6H PRN #30 tab 07/07/23 Review of Systems 10-point ROS is otherwise unremarkable General: Weakness Eyes: Unremarkable ENT: Unremarkable Respiratory: Cough Cardiovascular: Unremarkable Gastrointestinal: Unremarkable Genitourinary: Unremarkable Musculoskeletal: Foot Pain, As per HPI Integumentary: As per HPI Neurological: As per HPI Lymphatics: Unremarkable <QuigleyPriya - Last Filed: 07/23/23 18:39> Physical Examination - Studies Laboratory Data (last 24 hrs) 07/23/23 07/23/23 07/23/23 15:50 15:50 15:50 WBC 3.50 L Hgb 14.4 Hct 43.3 Plt Count 141 L PT 12.6 H INR 1.15 APTT 40.5 H Sodium 139 Potassium 3.9 BUN 9 Creatinine 0.89 Glucose 85 Total Bilirubin 1.3 H AST 52 H ALT 36 Alkaline Phosphatase 144 H <RoselynBerna Avalos - Last Filed: 07/23/23 17:50> - Vital Signs Pulse: 86 Respirations: 22 Pulse Ox (%): 92 - Physical Exam General: Cooperative, Disheveled, Confused HEENT: Other (5 sutures encrusted on forehead, healing ecchymosis under right eye) Neck: Supple Respiratory: Crackles/rales, Rhonchi/gurgles Cardiovascular: No edema Capillary refill: <2 Seconds Gastrointestinal: Normal bowel sounds, Distended, Hepatosplenomegaly Musculoskeletal: Clubbing (to right toes) Integumentary: Arterial ulcer, Other (nonhealing wound to the dorsum of right foot, crusting and clubbing around right toes, dry, cracked skin at heels) Neurological: Other (possible hepatic encephalopathy), Abnormal speech, Abnormal strength Lymphatics: No axilla or inguinal lymphadenopathy External genitalia: Deferred Rectal: Deferred <Priya Quigley - Last Filed: 07/23/23 18:39> Assessment and Plan Physician Review Additional Text: Pt seen and examined. I agree with the note by the CYBER THREAT ANALYST. Pt is a 63 yo female with past medical history of ADD/ADHD, Bipolar disorder, Myocardial infarction, CVA, Left sided weakness, COPD, Cirrhosis, Hypertension, Fibromyalgia, Hypothyroidism, and Seizures who presents with right foot wound dehiscence and infection. Of note, pt was seen in this hospital and discharged after stapling of the wound. Pt reports that he continued to feel weak and pt noticed foul odor from the wound. On admission, lab studies show WBC 3.5, K 3.9, Cr 0.89, lactate 2.8, AST 52, ALT 36, Alk phos 144. At bedside, pt is in NAD. A/P: Severe sepsis 2/2 Right foot infection: Will continue iv vanc. Follow up wound cx. Will consult ID. Lactic acidosis: lactate is 2.8. Will continue IVF and trend lactate. COPD: Stable. Not in exacerbation. Will continue prn duoneb Htn: Continue home meds Hx of CVA: Will continue home med. Will continue home meds for other chronic medical problems. <Berna Dempsey - Last Filed: 07/23/23 17:50> - Plan Right foot open wound with concern for osteomyelitis: MRI with contrast of foot (creatinine 0.86) Consult Dr. Juarez for wound evaluation Arterial doppler of lower extremities Vancomycin IVPB with peak and trough per protocol. Pt has anaphylaxic reaction to PCN Lactic acidosis likely due to dehydration, cirrhotic malnutrition: gentle IVF, monitor and replenish electrolytes, repeat lactate 2.8 -> may consider Clinimix high calorie diet Hepatitis C Cirrhosis: monitior LFTs, lipids, ammonia History of CVA/CA: pt is quite vasculopathic but will hold anticoagulants secondary to severe cirrhosis SCDs PT to assist Out of bed to chair QID telemetry - currently SR with frequent multifocal PVCs, prolonged QTc at 528, avoid QT prolongation drugs Hypothyroidism: continue levothyroxine home meds Anxiety: calm environment reorient often repeat plan of care as often as necessary May continue home medication Lamictal as it does not prolong QT HFpEF/pulmonary hypertension: Echo 03/31 with preserved EF, pulmonary hypertension Monitor Blood pressure diuretics prn COPD Exacerbation: albuterol/atrovent nebs q 6h with spot check pulse ox O2 per protocol smoking cessation Seizure disorder: continue Keppra - Advance Directives Does patient have a Living Will: No Does patient have a Durable POA for Healthcare: No <Priya Quigley - Last Filed: 07/23/23 18:39>
[2023-07-23] MEDS ORDERED: CLINDAMYCIN 600MG/D5W 50 ML IV SCH (18:00)
[2023-07-23 18:57] LABS: Bilirubin Total 1.2 mg/dL (0.2-1.0)
[2023-07-23 18:58] LABS: Albumin 2.3 g/dL (3.4-5.0); Bilirubin Direct 0.4 mg/dL (0-0.2); Bilirubin Indirect, Calculated 0.8 mg/dL (0.2-0.8); Protein, Total 8.4 g/dL (6.4-8.2)
--- NOTE | 2023-07-23 19:04 | RAD REPORT ---
EXAM DESCRIPTION: US - Lower Extremity Arterial Bilat - 07/23/2023 6:34 pm CLINICAL HISTORY: non healing wound Leg pain, claudication COMPARISON: Lower Extremity Arterial Bilat dated 04/05/2023 TECHNIQUE: Bilateral lower extremity arterial Doppler examination was performed with waveform tracin g and velocity measurements. FINDINGS: The right common femoral artery to popliteal artery is triphasic. The right posterior tibial artery a nd dorsalis pedis artery are monophasic. The left common femoral artery to popliteal artery is triphasic. The left posterior tibial artery and dorsalis pedis artery are biphasic. No complete occlusion. Bilateral Ding's cyst. IMPRESSION: Moderate peripheral vascular disease is seen infrapopliteal vessels bilaterally, more se miri on the right
[2023-07-23 20:05] VITALS: BMI 29.9
[2023-07-23] MEDS: ALBUTEROL 2.5 MG/3 ML NEB SOL NEB SCH (20:18)
[2023-07-23] MEDS: IPRATROPIUM BROM 0.5MG/2.5ML NEB SCH (20:18)
[2023-07-23] MEDS: INSULIN REGULAR (HUMAN) 100 UNIT/ML SQ SCH (21:00)
[2023-07-23] MEDS: NA CHLORIDE 0.9% 1,000 ML IV SCH (21:33)
[2023-07-23] MEDS: VANCOMYCIN 500 MG in NA CHLORIDE 0.9% 100 ML IVPB ONE (21:34)
[2023-07-24 03:42] LABS: Absolute Lymphocytes (CBC) 1.1 K/uL (0.7-4.9); Hematocrit 40.3 % (36.0-45.0); Lymphocytes % 31.7 % (15.3-44.8); MCV 87.5 fL (80-100); MPV 7.5 fL (7.6-11.3); Platelets 141 thou/uL (152-406); RBC Red Blood Cell Count 4.61 M/uL (3.86-4.86)
[2023-07-24 03:59] LABS: Albumin 2.4 g/dL (3.4-5.0); Bilirubin Total 1.4 mg/dL (0.2-1.0); Potassium 3.7 mEq/L (3.5-5.1); Protein, Total 8.5 g/dL (6.4-8.2)
--- NOTE | 2023-07-24 08:07 | P.PN ---
Subjective Date of Service: 07/24/23 Primary Care Provider: Seeing someone in [place] - Dr. Rosario? Chief Complaint: lactic acidosis, foot wound, deconditioning <Priya Quigley - Last Filed: 07/24/23 10:40> Date of Service: 07/24/23 <Berna Dempsey - Last Filed: 07/24/23 17:30> Physical Examination - Vital Signs Temperature: 97.8 F Blood Pressure: 124/89 Pulse: 71 Respirations: 18 Pulse Ox (%): 96 - Studies Laboratory Data (last 24 hrs) 07/23/23 07/23/23 07/23/23 15:50 15:50 15:50 WBC 3.50 L Hgb 14.4 Hct 43.3 Plt Count 141 L PT 12.6 H INR 1.15 APTT 40.5 H Sodium 139 Potassium 3.9 BUN 9 Creatinine 0.89 Glucose 85 Total Bilirubin 1.3 H AST 52 H ALT 36 Alkaline Phosphatase 144 H <Priya Quigley - Last Filed: 07/24/23 10:40> - Studies Microbiology Data (last 24 hrs): 07/23/23 14:52 Wound - Right Foot Gram Stain - Final <Berna Dempsey - Last Filed: 07/24/23 17:30> Assessment And Plan - Plan Right foot open wound with concern for osteomyelitis: MRI with contrast of foot (creatinine 0.86) Consult Dr. Juarez for wound evaluation Arterial doppler of lower extremities Vancomycin IVPB with peak and trough per protocol. Pt has anaphylaxic reaction to PCN Lactic acidosis likely due to dehydration, cirrhotic malnutrition: gentle IVF, monitor and replenish electrolytes, repeat lactate 2.8 -> may consider Clinimix high calorie diet Hepatitis C Cirrhosis: monitior LFTs, lipids, ammonia History of CVA/MN: pt is quite vasculopathic but will hold anticoagulants secondary to severe cirrhosis SCDs PT to assist Out of bed to chair QID telemetry - currently SR with frequent multifocal PVCs, prolonged QTc at 528, avoid QT prolongation drugs Hypothyroidism: continue levothyroxine home meds Anxiety: calm environment reorient often repeat plan of care as often as necessary May continue home medication Lamictal as it does not prolong QT HFpEF/pulmonary hypertension: Echo 03/31 with preserved EF, pulmonary hypertension Monitor Blood pressure diuretics prn COPD Exacerbation: albuterol/atrovent nebs q 6h with spot check pulse ox O2 per protocol smoking cessation Seizure disorder: continue Keppra <Priya Quigley - Last Filed: 07/24/23 10:40> - Plan Pt seen and examined. I agree with the note by the MARKET DEVELOPMENT DIRECTOR. Continue iv vanc and cefepime for the foot infection. Continue wound care. <Berna Dempsey - Last Filed: 07/24/23 17:30>
--- NOTE | 2023-07-24 08:43 | P.CNS ---
Date of Consult: 07/24/23 Reason for Consult: nonhealing foot wound Primary Care Provider: Seeing someone in [place] - Dr. Rosario? Chief Complaint: lactic acidosis, foot wound, deconditioning History of Present Illness: Patient is a 63-year-old female with a past medical history of hypertension, hypothyroidism, peripheral arterial disease, CVA, [place], cirrhosis, hepatitis C, seizure disorder and bipolar disorder who presented to the ED with complaints of generalized weakness. She was noted to have lactic acidosis and nonhealing foot wound. Blood and wound cultures obtained. Urinalysis pending. Infectious disease was consulted. Allergies Penicillins Allergy (Intermediate, Verified 04/18/19 23:29) Anaphylaxis Home medications list reviewed: Yes Home Medications: Gabapentin 600 mg PO TID 09/03/22 Trazodone HCl 100 mg PO BEDTIME PRN 09/03/22 levETIRAcetam [Keppra*] 750 mg PO BID 10/27/22 Atorvastatin Calcium [Lipitor*] 40 mg PO BEDTIME #30 tab 11/04/22 Levothyroxine [Synthroid*] 0.125 mg PO DAILYAC #30 tab 11/04/22 ALPRAZolam [Xanax*] 0.5 mg PO TID PRN #30 tab 11/24/22 Midodrine HCl [Proamatine*] 5 mg PO TID #90 tab 11/24/22 Folic Acid 1 mg PO DAILY 04/04/23 Lamotrigine [Lamictal] 25 mg PO DAILY 04/04/23 Meloxicam [Mobic*] 7.5 mg PO BID 04/04/23 Silver Sulfadiazine [Silvadene 1% Cream] 1 appl TOP BID #1 tube 04/08/23 Hydrocodone 10/APAP 325 [[place] 10/325*] 1 tab PO Q6H PRN #30 tab 07/05/23 Minocycline HCl 100 mg PO BID #14 cap 07/05/23 Mupirocin Oint [Bactroban 2% Ointment] 22 appl TOP TID #1 tube 07/05/23 Hydrocodone 7.5/APAP 325 [[place] 7.5/325 mg] 1 tab PO Q6H PRN #30 tab 07/07/23 - Past Medical/Surgical History Diabetic: No -: Hypothyroidism -: HTN -: Anxiety -: Seizures -: HX [place] x2 -: HX CVA - Left side wekness -: Osteoarthritis -: Hepatitis C -: liver cirrhosis -: Geovanny's paralysis -: Neck Surgery -: Tubal Ligation Psychosocial/ Personal History: Patient states she lives with "an old man and his " - Family History Mother Medical History: Heart disease, Diabetes Father Medical History: Other (see notes) Notes: Alzheimers Brother Medical History: Other (see notes) Notes: COPD, Bone Cancer, Back Surgery - Social History Smoking Status: Current every day smoker Alcohol use: Yes CD- Drugs: Yes Caffeine use: Yes Place of Residence: Home Review of Systems 10-point ROS is otherwise unremarkable General: Weakness Musculoskeletal: Foot Pain Physical Examination Temp Pulse Resp BP Pulse Ox 97.8 F 71 18 124/89 96 07/24/23 08:07 07/24/23 08:07 07/24/23 08:07 07/24/23 08:07 07/24/23 08:07 General: In no apparent distress, Oriented x2, Confused HEENT: Other (forehead lesion. laceration top/left of head. Poor dentition. Dry oral mucosa. ) Neck: Supple Respiratory: Diminished, Crackles/rales, Other (2L nasal cannula) Cardiovascular: Regular rate/rhythm, Abnormal pulses Gastrointestinal: Normal bowel sounds, Soft and benign Integumentary: Tenderness/swelling (right foot), Other (dorsal right foot wound) Laboratory Data - Reviewed Microbiology Data - Reviewed Imagings Data: - Reviewed Conclusions/Impression: Problem list Right foot wound Peripheral Vascular Disease Cirrhosis Hepatitis C Hypothyroidism Congestive heart failure COPD exacerbation Seizure disorder Right foot wound -Wound culture 07/23 pending -MRI right foot pending to eval for osteomyelitis - Arterial ultrasound 07/23: ": Moderate peripheral vascular disease is seen infrapopliteal vessels bilaterally, more severe on the right" - lactic acid 2.1 -> 3.3 - leukopenia (WBC 3.5) Blood cultures 07/23 pending Urinalysis: Afebrile. Recommendations - Right foot wound: Started on Cefepime IV. Continue Vancomycin and Cefepime for now (Patient was previously on Rocephin during hospitalization March 2023 without any adverse effects/allergic reactions.) - Follow up with wound and blood culture results. - Follow up with MRI right foot - Monitor WBC and fever trends - seizure precautions Case discussed with Dr. Mcclure NBigg
[2023-07-24] MEDS: POTASSIUM 25 MEQ EFFERV TAB PO ONE (09:58)
[2023-07-24 10:11] LABS: Specific Gravity 1.027 (1.005-1.030); Urine Bacteria None Seen /HPF (<20); Urine Bilirubin NEGATIVE (Negative); Urine Blood Negative (Negative); Urine Clarity Extremely Turbid (Clear); Urine Color Yellow (Yellow); Urine Glucose NEGATIVE (Negative); Urine Mucus Slight /HPF (None Seen); Urine Protein TRACE (Negative); Urine Urobilinogen 2+ (Normal); Urine pH 6.5 (5.0-7.0)
[2023-07-24] MEDS: Oxycodone HCl/Acetaminophen 5/325 MG TAB PO PRN (10:45)
[2023-07-24] MEDS: LACTULOSE 20 GM/30 ML UCUP PO ONE (11:43)
[2023-07-24] MEDS: WATER FOR INJ,STERILE 10 ML IM PRN (12:46)
[2023-07-24] MEDS: ZIPRASIDONE MESYLA 20 MG/VIAL IM PRN (12:47)
[2023-07-24] MEDS ORDERED: COLLAGENASE 30 GM OINTMENT TOP SCH (14:17)
[2023-07-24] MEDS: COLLAGENASE 30 GM OINTMENT TOP SCH (14:31)
--- NOTE | 2023-07-24 14:41 | EKG ---
Test Date: 2023-07-23 Test Time: 15:59:15 Physician Specialist: TRISTA MEASUREMENT RESULTS: Intervals: Rate: 86 MI: 152 QRSD: 102 QT: 442 QTc: 528 [place]: P: 68 MI: 152 QRS: -28 T: 104 INTERPRETIVE STATEMENTS: Sinus rhythm with premature supraventricular complexes with frequent premature ventricular complexes and fusion complexes Right atrial enlargement Prolonged QT Abnormal ECG Compared to ECG 04/04/2023 16:09:05 Atrial premature complex(es) now present Fusion complex(es) now present Ventricular premature complex(es) now present Atrial abnormality now present Prolonged QT interval now present Sinus tachycardia no longer present Myocardial infarct finding no longer present Electronically Signed On 07-24-23 14:39:48 BOND WRITER by Andrew Upton
--- NOTE | 2023-07-24 14:55 | RAD REPORT ---
EXAM DESCRIPTION: RAD - Chest Single View - 07/24/2023 2:44 pm CLINICAL HISTORY: SOB Chest pain. COMPARISON: Chest Single View dated 07/23/2023; Chest Single View dated 04/04/2023; Chest Single View dated 03/10/2023; Chest Single View dated 11/28/2022 FINDINGS: Portable technique limits examination quality. Mild pulmonary edema. The heart is moderately enlarged. No displaced fractures. IMPRESSION: Mild to moderate CHF.
[2023-07-24] MEDS: LABETALOL 20 MG/4ML SYRINGE IV PRN (17:00)
[2023-07-24] MEDS: VANCOMYCIN 1.5 GM in NA CHLORIDE 0.9% 500 ML IVPB SCH (17:00)
--- NOTE | 2023-07-24 19:57 | RAD REPORT ---
EXAM DESCRIPTION: RAD - Chest Single View - 07/24/2023 7:52 pm CLINICAL HISTORY: increased sob Chest pain. COMPARISON: Chest Single View dated 07/24/2023; Chest Single View dated 07/23/2023; Chest Single View dated 04/04/2023; Chest Single View dated 03/10/2023 FINDINGS: Portable technique limits examination quality. Mild interstitial pulmonary edema. The heart is normal in size. No displaced fractures. IMPRESSION: Mild CHF.
--- NOTE | 2023-07-24 20:11 | RAD REPORT ---
EXAM DESCRIPTION: CT - Head Brain Wo Cont - 07/24/2023 6:37 am [facility]: CT HEAD WITHOUT IV CONTRAST CLINICAL HISTORY: 63 years Female; fall, head laceration possible hematoma; TECHNIQUE: Noncontrast CT head. All CT scans at this facility use dose modulation, iterative reconstruction, and/or weight based dosi ng when appropriate to reduce radiation dose to as low as reasonably achievable. COMPARISON: CT head 07/02/2023. FINDINGS: Parenchyma: No acute hemorrhage, large territorial infarction, or mass effect. Scattered h ypodensities in the white matter, likely chronic small vessel ischemic changes. Ventricles and extra-axial spaces: Appropriate for age. Visualized paranasal sinuses: Clear. Mastoid air cells: Clear. Bones: No acute focal abnormality. Additional comment: Left parietal and right anterior frontal soft tissue swelling, could represent so ft tissue contusions. Intracranial atherosclerosis. IMPRESSION: 1. No acute traumatic intracranial findings. 2. Left parietal and right anterior frontal soft tissue swelling, could represent soft tissue contu sions. Electronically signed by: Kassandra Kelly MD 07/24/2023 05:23 AM [facility] Due to temporary technical issues with the PACS/Fluency reporting system, reports are being signed by the in house radiologists without review as a courtesy to insure prompt reporting. The interpreting radiologist is fully responsible for the content of the report.
[2023-07-24] MEDS: CEFEPIME 2 GM in NA CHLORIDE 0.9% 100 ML IV SCH (21:45)
[2023-07-24] MEDS: LACTULOSE 20 GM/30 ML UCUP PO SCH (21:58)
[2023-07-24] MEDS: Rifaximin 550 MG Tab PO SCH (22:06)
[2023-07-25 07:31] LABS: Albumin 2.2 g/dL (3.4-5.0); Bilirubin Total 1.1 mg/dL (0.2-1.0); Magnesium 2.1 mg/dL (1.6-2.4); Potassium 4.5 mEq/L (3.5-5.1); Protein, Total 8.2 g/dL (6.4-8.2)
--- NOTE | 2023-07-25 08:32 | P.PN ---
Date of Service: 07/25/23 Chief Complaint: lactic acidosis, foot wound, deconditioning Subjective: In no apparent distress. No acute events overnight. + right foot pain. Physical Examination Temp Pulse Resp BP Pulse Ox 97.0 F 68 16 152/98 H 95 07/25/23 04:00 07/25/23 04:00 07/25/23 04:00 07/25/23 04:00 07/25/23 04:00 General: In no apparent distress, Oriented x2, Confused HEENT: forehead lesion. laceration top/left of head. Poor dentition. Dry oral mucosa. Neck: Supple Respiratory: Diminished. Crackles/rales. 2L nasal cannula. Cardiovascular: Regular rate/rhythm, Abnormal pulses Gastrointestinal: Normal bowel sounds, Soft and benign Integumentary: Dorsal right foot wound. Laboratory Data - Reviewed Microbiology Data - Reviewed Imagings Data: - Reviewed Assessment and Plan Problem list Right foot wound Peripheral Vascular Disease Cirrhosis Hepatitis C Hypothyroidism Congestive heart failure COPD exacerbation Seizure disorder Right foot wound Infection -Wound culture 07/23: 3+ gram negative rods - Arterial ultrasound 07/23: ": Moderate peripheral vascular disease is seen infrapopliteal vessels bilaterally, more severe on the right" - lactic acid 2.1 -> 3.3 -> 2.8 -> 1.6 - leukopenia - Currently on Cefepime and Vancomycin (07/24-) Blood cultures 07/23: no growth to date Urinalysis not suggestive of UTI. Afebrile. Recommendations - Right foot wound: Continue Cefepime and Vancomycin. - Follow up with wound and blood culture results. - Monitor WBC and fever trends - seizure precautions - Continue supportive care Case discussed with Nicole Staley
[2023-07-25] MEDS ORDERED: MEDIHONEY 44 ML TOPICAL TUBE TOP SCH (09:00)
--- NOTE | 2023-07-25 11:52 | P.PN ---
Subjective Date of Service: 07/25/23 Primary Care Provider: Seeing someone in [place] - Dr. Rosario? Chief Complaint: lactic acidosis, foot wound, deconditioning Subjective: Other (more alert today but remains confused) Review of Systems confused Physical Examination - Vital Signs Temperature: 97.1 F Blood Pressure: 160/93 Pulse: 72 Respirations: 19 Pulse Ox (%): 96 - Physical Exam General: Disheveled, Confused HEENT: Atraumatic, Normocephalic, Scleral icterus Neck: Supple Respiratory: Expiratory wheezes, Rhonchi/gurgles Cardiovascular: No edema, Regular rate/rhythm, Other (monophasic flow most of lower extremities) Capillary refill: <2 Seconds Gastrointestinal: Soft and benign, Hepatomegaly Musculoskeletal: Clubbing Integumentary: Other (2.54 circular lesion to dorsum of left foot with ulceration, serous dc, fibrin at base of wound) Neurological: Other (jaundiced), Abnormal speech, Abnormal strength External genitalia: Deferred Rectal: Deferred - Studies Microbiology Data (last 24 hrs): 07/23/23 14:52 Wound - Right Foot Gram Stain - Final Assessment And Plan - Plan Right foot open wound with concern for osteomyelitis: MRI with contrast of foot (creatinine 0.86) Consult Dr. Juarez for wound evaluation Arterial doppler of lower extremities Vancomycin IVPB with peak and trough per protocol. Pt has anaphylaxic reaction to PCN Lactic acidosis likely due to dehydration, cirrhotic malnutrition: gentle IVF, monitor and replenish electrolytes, repeat lactate 2.8 -> may consider Clinimix high calorie diet Hepatitis C Cirrhosis with Hyperammonianemia: monitior LFTs, lipids, ammonia Lactulose TID Xifaxin History of CVA/VT: pt is quite vasculopathic but will hold anticoagulants secondary to severe cirrhosis SCDs PT to assist Out of bed to chair QID telemetry - currently SR with frequent multifocal PVCs, prolonged QTc at 528, avoid QT prolongation drugs Hypothyroidism: continue levothyroxine home meds Anxiety: calm environment reorient often repeat plan of care as often as necessary May continue home medication Lamictal as it does not prolong QT HFpEF/pulmonary hypertension: Echo 03/31 with preserved EF, pulmonary hypertension Monitor Blood pressure diuretics prn COPD Exacerbation: albuterol/atrovent nebs q 6h with spot check pulse ox O2 per protocol smoking cessation Seizure disorder: continue Keppra
[2023-07-25 14:13] LABS: Hematocrit 40.3 % (36.0-45.0); Lymphocytes % 25.3 % (15.3-44.8); MCV 87.6 fL (80-100); MPV 7.7 fL (7.6-11.3); Platelets 130 thou/uL (152-406)
[2023-07-26 03:22] LABS: Absolute Lymphocytes (CBC) 1.2 K/uL (0.7-4.9); Hematocrit 36.2 % (36.0-45.0); Lymphocytes % 26.3 % (15.3-44.8); MCV 87.2 fL (80-100); MPV 7.6 fL (7.6-11.3); Platelets 121 thou/uL (152-406); RBC Red Blood Cell Count 4.16 M/uL (3.86-4.86)
[2023-07-26 03:46] LABS: Albumin 2.1 g/dL (3.4-5.0); Bilirubin Total 0.6 mg/dL (0.2-1.0); Protein, Total 7.6 g/dL (6.4-8.2)
--- NOTE | 2023-07-26 08:54 | P.PN ---
Subjective Date of Service: 07/26/23 Primary Care Provider: Seeing someone in [place] - Dr. Rosario? Chief Complaint: lactic acidosis, foot wound, deconditioning Subjective: Improving Review of Systems 10-point ROS is otherwise unremarkable General: Unremarkable Eyes: Unremarkable ENT: Unremarkable Respiratory: Unremarkable Cardiovascular: Unremarkable Gastrointestinal: Unremarkable Genitourinary: Unremarkable Musculoskeletal: Unremarkable Integumentary: Unremarkable Neurological: Unremarkable Lymphatics: Unremarkable Physical Examination - Vital Signs Temperature: 97.7 F Blood Pressure: 162/92 Pulse: 80 Respirations: 18 Pulse Ox (%): 95 - Physical Exam General: Alert, Confused, Other (much more alert today) HEENT: Normocephalic, Other (wound to forehead healing well) Neck: Supple, 2+ carotid pulse no bruit Respiratory: Expiratory wheezes, Other (100% on RA, cough improved) Cardiovascular: No edema, Normal pulses, Regular rate/rhythm Capillary refill: <2 Seconds Gastrointestinal: Soft and benign Musculoskeletal: No swelling Integumentary: Arterial ulcer (improving) Neurological: Other (moving all extremities, more responsive) Lymphatics: No axilla or inguinal lymphadenopathy External genitalia: Deferred Rectal: Deferred - Studies Microbiology Data (last 24 hrs): 07/23/23 14:52 Wound - Right Foot Gram Stain - Final Assessment And Plan - Plan Right foot open wound with concern for osteomyelitis: MRI with contrast of foot (creatinine 0.86) Consult Dr. Juarez for wound evaluation Arterial doppler of lower extremities Vancomycin IVPB with peak and trough per protocol. Pt has anaphylaxic reaction to PCN ID changed abx to Cefepime as pt has done okay with Rocephin in the past Lactic acidosis likely due to dehydration, cirrhotic malnutrition: gentle IVF, monitor and replenish electrolytes, repeat lactate 2.8 -> 1.6 high calorie diet Hepatitis C Cirrhosis with Hyperammonianemia: monitior LFTs trended down AST 52->39, lipids, ammonia trended from 134 to 54, Tbili from 1.3 to 0.6 Lactulose BID Xifaxin History of CVA/MO: pt is quite vasculopathic but will hold anticoagulants secondary to severe cirrhosis SCDs PT to assist Out of bed to chair QID telemetry - currently SR with frequent multifocal PVCs, prolonged QTc at 528, avoid QT prolongation drugs Hypothyroidism: continue levothyroxine home meds Anxiety: calm environment reorient often repeat plan of care as often as necessary May continue home medication Lamictal as it does not prolong QT HFpEF/pulmonary hypertension: Echo 03/31 with preserved EF, pulmonary hypertension Monitor Blood pressure diuretics prn COPD Exacerbation: albuterol/atrovent nebs q 6h prn with spot check pulse ox O2 per protocol smoking cessation Seizure disorder: continue Keppra Weakness: Home health, SW working on ensuring pt has home needs met Discharge Plan: Home Plan to discharge in: 48 Hours
[2023-07-26] MEDS ORDERED: IPRATROPIUM BROM 0.5MG/2.5ML NEB PRN (11:03)
[2023-07-26] MEDS: ALBUTEROL 2.5 MG/3 ML NEB SOL NEB SCH (16:07)
--- NOTE | 2023-07-26 17:05 | P.DS ---
Admission Date: 07/23/23 Discharge Date: 07/27/23 Primary Care Provider: Seeing someone in [place] - Dr. Rosario? Disposition: DC HOME/HOME HEALTH CARE Discharge Condition: FAIR Reason for Admission: lactic acidosis, foot wound, deconditioning Consultations: Infectious Disease - Dr. Mcclure/Bárbara Alatorre General Surgery - Dr. Juarez Brief History of Present Illness: Rebeca Leo is a 62-year-old female patient with a past medical history of hypertension, dyslipidemia, hypothyroidism, PAD, CVA, PA, cirrhosis, hepatitis C, seizure disorder and bipolar disorder. She presented to the ER on July 02, 2023 after a fall down 4 stairs and was evaluated in the emergency room. She arrives today to the emergency room with a complaint of worsening weakness since that time: sutures remain in place to her forehead and right foot. Her right foot wound has not healed, right foot is mildly swollen. The patient states she lives with "an old man and his " and she receives home health services 5 days a week. She states she has not been able to bear weight to right foot for about 5 weeks. In the emergency room she was found to have some lactic acidosis and will be admitted for further assessment of wound. Hospital Course: Over much of the course of Ms. Leo's hospitalization she was very confused with hepatic encephalopathy. She was placed on Xifaxan and lactulose and has had good results with steadily decreasing ammonia levels and increased cognition. Yesterday she began refusing breathing treatment saying that they made her feel worse instead of better, she has significantly less cough, and is more alert. I feel patient is back to baseline and can follow-up outpatient with home health. She has been getting vashe wound care to dorsum of foot, with antiseptic covering, and kerlix. She can follow up with the wound care center. Vital Signs/Physical Exam: Temp Pulse Resp BP Pulse Ox 97.3 F 82 16 152/85 H 98 07/26/23 12:00 07/26/23 12:00 07/26/23 12:00 07/26/23 12:00 07/26/23 12:00 Laboratory Data at Discharge: WBC 4.60 thou/uL (4.3-10.9) 07/26/23 02:42 Hgb 12.1 g/dL (12.0-15.0) D 07/26/23 02:42 Hct 36.2 % (36.0-45.0) 07/26/23 02:42 Plt Count 121 thou/uL (152-406) L 07/26/23 02:42 PT 12.6 SECONDS (9.5-12.5) H 07/23/23 15:50 INR 1.15 07/23/23 15:50 APTT 40.5 SECONDS (24.3-36.9) H 07/23/23 15:50 Sodium 139 mEq/L (136-145) 07/26/23 02:42 Potassium 4.0 mEq/L (3.5-5.1) 07/26/23 02:42 BUN 17 mg/dL (7-18) 07/26/23 02:42 Creatinine 0.83 mg/dL (0.55-1.02) 07/26/23 02:42 Glucose 85 mg/dL (74-106) 07/26/23 02:42 Magnesium 2.1 mg/dL (1.6-2.4) 07/25/23 06:15 Total Bilirubin 0.6 mg/dL (0.2-1.0) 07/26/23 02:42 AST 39 U/L (15-37) H 07/26/23 02:42 ALT 27 U/L (13-56) 07/26/23 02:42 Alkaline Phosphatase 111 U/L (45-117) 07/26/23 02:42 Home Medications: Gabapentin 600 mg PO TID 09/03/22 levETIRAcetam [Keppra*] 750 mg PO BID 10/27/22 Atorvastatin Calcium [Lipitor*] 40 mg PO BEDTIME #30 tab 11/04/22 Levothyroxine [Synthroid*] 0.125 mg PO DAILYAC #30 tab 11/04/22 Folic Acid 1 mg PO DAILY 04/04/23 Lamotrigine [Lamictal] 25 mg PO DAILY 04/04/23 Meloxicam [Mobic*] 7.5 mg PO BID PRN 04/04/23 Collagenase [Santyl Ointment*] 1 appl TOP DAILY #4 oz 07/26/23 Lactulose [Cephulac*] 30 ml PO BID #8 oz 07/26/23 Mupirocin Oint [Bactroban 2% Ointment*] 1 appl TOP TID #15 gm 07/26/23 Minocycline HCl 100 mg PO BID #20 07/27/23 New Medications: Mupirocin Oint [Bactroban 2% Ointment*] 1 appl TOP TID #15 gm Lactulose [Cephulac*] 30 ml PO BID #8 oz Minocycline HCl 100 mg PO BID #20 Collagenase [Santyl Ointment*] 1 appl TOP DAILY #4 oz Diet: AHA Activity: Weight bearing as tolerated Followup: Acosta Tinoco FNP [Primary Care Provider] -
[2023-07-27 03:20] LABS: Absolute Lymphocytes (CBC) 1.3 K/uL (0.7-4.9); Hematocrit 37.6 % (36.0-45.0); Lymphocytes % 33.4 % (15.3-44.8); MPV 7.8 fL (7.6-11.3); Platelets 132 thou/uL (152-406); RBC Red Blood Cell Count 4.32 M/uL (3.86-4.86)
[2023-07-27 03:48] LABS: Bilirubin Total 0.7 mg/dL (0.2-1.0); Potassium 4.2 mEq/L (3.5-5.1); Protein, Total 7.5 g/dL (6.4-8.2)
[2023-07-27 12:19] VITALS: BP 124/83; TEMP 97.9
[2023-07-27 15:09] VITALS: O2SAT 95
[2023-07-27] MEDS ORDERED: VANCOMYCIN 1.75 GM in NA CHLORIDE 0.9% 500 ML IVPB SCH (16:00)
--- NOTE | 2023-07-28 10:59 | EKG ---
Test Date: 2023-07-26 Test Time: 21:28:12 [place] Sewer: SREG MEASUREMENT RESULTS: Intervals: Rate: 78 AZ: 148 QRSD: 94 QT: 434 QTc: 494 [place]: P: 66 AZ: 148 QRS: -21 T: 56 INTERPRETIVE STATEMENTS: Sinus rhythm with frequent premature ventricular complexes Possible Left atrial enlargement Prolonged QT Abnormal ECG Compared to ECG 07/23/2023 15:59:15 Atrial premature complex(es) no longer present Fusion complex(es) no longer present Electronically Signed On 07-28-23 10:56:32 HEAD BONE GRINDER by Luis M Pavon
== END 2023-07-27 16:05 | disposition home health service (06) | DRG 872 ==
LOC: ER 14:22 → 2ND 16:54
PROVIDERS: ADMIT Hospitalist; ATTEND Hospitalist
DX: A41.9 Sepsis, unspecified organism (principal); E87.20 Acidosis, unspecified; J44.1 Chronic obstructive pulmonary disease with (acute) exacerbation; E72.20 Disorder of urea cycle metabolism, unspecified; M86.8X7 Other osteomyelitis, ankle and foot; E46 Unspecified protein-calorie malnutrition; R65.20 Severe sepsis without septic shock; I10 Essential (primary) hypertension; K76.82 Hepatic encephalopathy; E78.5 Hyperlipidemia, unspecified; E03.9 Hypothyroidism, unspecified; M79.7 Fibromyalgia; E86.0 Dehydration; K74.69 Other cirrhosis of liver; I49.3 Ventricular premature depolarization; I73.9 Peripheral vascular disease, unspecified; Z68.29 Body mass index [BMI] 29.0-29.9, adult; F41.9 Anxiety disorder, unspecified; I27.20 Pulmonary hypertension, unspecified; G40.909 Epilepsy, unspecified, not intractable, without status epilepticus; J44.9 Chronic obstructive pulmonary disease, unspecified; I25.2 Old myocardial infarction; B19.20 Unspecified viral hepatitis C without hepatic coma; F17.210 Nicotine dependence, cigarettes, uncomplicated; Z88.0 Allergy status to penicillin; Z86.73 Personal history of transient ischemic attack (TIA), and cerebral infarction without residual deficits; Z98.51 Tubal ligation status; Z79.890 Hormone replacement therapy; Z79.899 Other long term (current) drug therapy; W10.9XXA Fall (on) (from) unspecified stairs and steps, initial encounter; Y99.9 Unspecified external cause status; Y93.9 Activity, unspecified; Y92.9 Unspecified place or not applicable
CPT/HCPCS: 36415; 70450; 71045; 80053; 80061; 80076; 80202; 81001; 82140; 82947; 83605; 83735; 83880; 85025; 85610; 85730; 87040; 87070; 87077; 87186; 87205; 93005; 93925; 94760; 96365; 96366; 97116; 97161; 97530; 99285; J0692; J3486; J3590; J7030; J7040; J7050; J7613; J7644

== ENCOUNTER 2023-09-14 13:33 | Inpatient (IN) | payer OTHER ==
[2023-09-14] MEDS ORDERED: NA CHLORIDE 0.9% 1,000 ML ONE (14:06)
--- NOTE | 2023-09-14 14:20 | RAD REPORT ---
EXAM DESCRIPTION: CT - Head Brain Wo Cont - 09/14/2023 2:13 pm CLINICAL HISTORY: Dizziness;Headache;Seizure COMPARISON: Head Brain Wo Cont dated 07/24/2023; Head Brain Wo Cont dated 11/28/2022 TECHNIQUE: All CT scans are performed using dose optimization technique as appropriate and may inclu de automated exposure control or mA/KV adjustment according to patient size. FINDINGS: No intracranial hemorrhage, hydrocephalus or extra-axial fluid collection.No areas of brai n edema or evidence of midline shift. Moderate chronic small vessel ischemic changes. The paranasal sinuses and mastoids are clear. The calvarium is intact. IMPRESSION: No acute intracranial abnormality.
--- NOTE | 2023-09-14 15:22 | RAD REPORT ---
EXAM DESCRIPTION: RAD - Chest Single View - 09/14/2023 3:09 pm CLINICAL HISTORY: COUGH COMPARISON: Chest Single View dated 07/24/2023; Chest Single View dated 07/24/2023; Chest Single View dated 07/23/2023; Chest Single View dated 04/04/2023 FINDINGS: Lines: None. Lungs: Mild ill-defined opacities at the lung bases. Increased prominence of the pulmonary interstiti um. Pleural: No significant pleural effusions or pneumothorax. Cardiac: Cardiomegaly . Mediastinum: Within normal limits. Bones: No acute fractures. Fusion hardware in the cervical spine. Other: None IMPRESSION: Mild interstitial prominence could reflect either edema or an atypical infectious proces s. No consolidative airspace disease or alveolar edema.
--- NOTE | 2023-09-14 15:33 | RAD REPORT ---
EXAM DESCRIPTION: CTChest Abd Pelvis Wo Con - 09/14/2023 3:17 pm CLINICAL HISTORY: Abdominal distention;Congestion COMPARISON: Chest For Pe Angio dated 01/22/2022; THORAX W CONTRAST dated 03/22/2015; CT HEAD SPINE CA P W CONTRAST dated 03/31/2012; CTANGIO CHEST FOR PE dated 04/04/2007; Head C Spine Cap W Con dated TECHNIQUE: CT of the chest, abdomen, and pelvis was performed. All CT scans are performed using dose optimization technique as appropriate and may include automated exposure control or mA/KV adjustment according to patient size. FINDINGS: Thorax: Chest Wall: Diffuse thyromegaly without underlying lesion identified by CT. Lungs: No acute abnormality. Pleura: No effusions or pneumothorax. Marci/Mediastinum: No lymphadenopathy. Circumferential esophageal wall thickening is chronic. Aorta/Pulmonary Arteries: Unremarkable Heart: Normal size. Aortic root calcifications. Coronary artery calcifications. Aortic valve calcific ations. Abdomen/Pelvis: Liver: Cirrhotic liver morphology. Biliary: No biliary ductal dilatation. Stomach: No significant focal abnormality. Duodenum: No significant focal abnormality. Pancreas: No significant abnormality. Spleen: No significant abnormality. Adrenal: No suspicious lesions. Kidney/ureter: No hydronephrosis. No renal calculi. Retroperitoneum: No retroperitoneal adenopathy. Vascular: No aneurysm. Atherosclerosis. Bowel: Moderate colonic stool. No appendicitis.. Peritoneum: No ascites or free air. Bladder: Morales catheter in the bladder. Reproductive: Tubal ligation. Bones: No acute fracture. Remote left-sided rib fractures. Remote superior endplate deformity at L3. Similar alignment of L4-5 were there is widening of the joint space anteriorly and grade 2 anterolist hesis of L5 on S1. Pars defects present at L5. Multilevel degenerative changes are present in the spi ne. Other: n/a IMPRESSION: No acute findings within the chest, abdomen, or pelvis. Incidental findings which are st able and described above.
[2023-09-14 15:34] LABS: Absolute Lymphocytes (CBC) 0.9 K/uL (0.7-4.9); Absolute Monocytes 0.3 K/uL (0.1-1.3); Absolute Neutrophil 2.9 K/uL (1.8-8.0); Basophils % 0.6 % (0-1.3); Eosinophils % 0.5 % (0-4.4); Hemoglobin 12.8 g/dL (12.0-15.0); MCH 29.3 pg (27.0-35.0); MCV 88.8 fL (80-100); MPV 7.6 fL (7.6-11.3); Monocytes % 8.1 % (3.3-12.3); Neutrophils % 68.8 % (41.7-73.7); Platelets 126 thou/uL (152-406); RBC Red Blood Cell Count 4.39 M/uL (3.86-4.86); Red Cell Distribution Width 20.7 % (12.1-15.2)
[2023-09-14 15:44] LABS: PT Prothrombin Time 13.9 SECONDS (9.5-12.5); PTT, Activated Partial Thromb 37.9 SECONDS (24.3-36.9); Protime INR 1.27
[2023-09-14 15:47] LABS: Specific Gravity 1.015 (1.005-1.030); Sqamous Epithelial <5 /HPF (None Seen); Urine Bacteria <20 /HPF (<20); Urine Bilirubin NEGATIVE (Negative); Urine Blood Negative (Negative); Urine Clarity Turbid (Clear); Urine Color Yellow (Yellow); Urine Culture Reflex Order NOT NEEDED; Urine Glucose NEGATIVE (Negative); Urine Ketones NEGATIVE (Negative); Urine Microscopic Reflex YN ORDER UMIC; Urine Nitrite NEGATIVE (Negative); Urine Protein NEGATIVE (Negative); Urine RBC <5 /HPF (None Seen); Urine Urobilinogen 1+ (Normal)
[2023-09-14 16:00] LABS: ALT/SGPT 40 U/L (13-56); AST/SGOT 100 U/L (15-37); Albumin 2.6 g/dL (3.4-5.0); Albumin/Globulin Ratio 0.5 (1.1-1.8); Alkaline Phosphatase 107 U/L (45-117); Anion Gap 7.2 mEq/L (5.0-15.0); BUN Blood Urea Nitrogen 16 mg/dL (7-18); Bicarbonate 28 mEq/L (21-32); Bilirubin Direct 0.6 mg/dL (0-0.2); Bilirubin Indirect, Calculated 0.8 mg/dL (0.2-0.8); Bilirubin Total 1.4 mg/dL (0.2-1.0); Globulin 5.6 g/dL (2.3-3.5); Glomerular Filtration Rate 66 ml/min (=/>90); Glucose Level 88 mg/dL (74-106); Magnesium 1.8 mg/dL (1.6-2.4); NT PRO-BNP 248 pg/mL (<125); Potassium 3.2 mEq/L (3.5-5.1); Protein, Total 8.2 g/dL (6.4-8.2); Sodium Level 138 mEq/L (136-145); Troponin High Sensitivity 48.4 pg/mL (<58.9)
[2023-09-14 16:00] LABS: Barbiturates NEGATIVE (NEGATIVE); Benzodiazepines NEGATIVE (NEGATIVE); Cocaine NEGATIVE (NEGATIVE); METHAMPHETAM POSITIVE (NEGATIVE); Methadone NEGATIVE (NEGATIVE); Opiates NEGATIVE (NEGATIVE); Phencyclidine NEGATIVE (NEGATIVE); THC Cannibis NEGATIVE (NEGATIVE)
[2023-09-14] MEDS ORDERED: CEFTRIAXONE 1000 MG/VIAL ONE (16:02)
[2023-09-14] MEDS ORDERED: FAMOTIDINE 20 MG/2 ML VIAL IV ONE (16:02)
--- NOTE | 2023-09-14 16:43 | ER ---
Nurse's Notes [facility] Name: Maisha Leo Age: 63 yrs Sex: Female : 1960 Arrival Date: 09/14/2023 Time: 13:33 Bed 16 Private MD: Diagnosis: 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 with seizures of localized onset;Unspecified cirrhosis of liver;Encephalopathy, unspecified-HEPATIC;Weakness;Hypokalemia;Abuse of other non-psychoactive substances;Adverse effect of amphetamines Presentation: 09/13 13:39 Chief complaint: EMS states: EMS called for seizure, hx of seizures, found by room ph matepritesh today on ground w/ AMS, reports that she had multiple seizures yesterday, oriented to person only at this time, VSS BGL 90s. Coronavirus screen: Vaccine status: unable to obtain. Ebola Screen: No symptoms or risks identified at this time. Initial Sepsis Screen: Does the patient meet any 2 criteria? No. Patient's initial sepsis screen is negative. Does the patient have a suspected source of infection? No. Patient's initial sepsis screen is negative. Risk Assessment: Do you want to hurt yourself or someone else? Patient reports no desire to harm self or others. Onset of symptoms was September 14, 2023. 13:39 Method Of Arrival: EMS: [facility] 13:39 Acuity: ARTURO 2 ph Triage Assessment: 13:50 General: Appears in no apparent distress. uncomfortable, ill, Behavior is cooperative, ph quiet. Pain: Complains of pain in all over. Neuro: Level of Consciousness is confused, lethargic, Oriented to person. Cardiovascular: Capillary refill < 3 seconds in bilateral fingers Patient's skin is warm and dry. Respiratory: Airway is patent Respiratory effort is even, unlabored, Respiratory pattern is regular, symmetrical. Derm: Wound noted dorsum of right foot. Historical: - Allergies: 13:46 PENICILLINS; ph - PMHx: 13:46 ADD/ADHD; Bipolar disorder; Cerebrovascular accident; Cirrhosis; COPD; CVA; Left sided ph weakness; Fibromyalgia; Hypertension; Hypothyroidism; Myocardial infarction; Seizures; - PSHx: 13:46 right big toe; ph - Immunization history:: Adult Immunizations up to date. - Infectious Disease History:: Denies. CDIFF, C. Auris, ESBL, MRSA (w/in 1 year), VRE (w/in 1 year), TB, . - Social history:: Smoking status: unknown. Screenin:42 [facility] ED Fall Risk Assessment (Adult) History of falling in the last 3 months, cp4 including since admission Yes- single mechanical fall (1 pt) Confusion or Disorientation No (0 pts) Intoxicated or Sedated No (0 pts) Impaired Gait No (0 pts) Mobility Assist Device Used No (0 pt) Altered Elimination No (0 pt) Score/Fall Risk Level 0 - 2 = Low Risk Oriented to surroundings, Maintained a safe environment, Assessed \T\ reinforced patient's understanding of fall precautions, Hourly rounding (assess needs \T\ fall precautionary measures) done. Abuse screen: Denies threats or abuse. Nutritional screening: No deficits noted. Tuberculosis screening: No symptoms or risk factors identified. Assessment: 15:42 General: Appears uncomfortable, Behavior is calm, cooperative. Pain: Denies pain. cp4 Neuro: Denies dizziness, headache. 17:08 Neuro: Amado Agitation-Sedation Scale (RASS): 0 - Alert and Calm Level of cp4 Consciousness is awake, confused, Oriented to person, [employer] are equal bilaterally Moves all extremities. Gait is steady, Speech is slurred, Facial symmetry appears normal, Pupils are PERRLA, Intact. 19:32 Neuro: Level of Consciousness is awake, alert, obeys commands, Oriented to person, cp4 situation, [employer] are equal bilaterally Moves all extremities. Gait is steady, Speech is slurred, Facial symmetry appears normal, Pupils are PERRLA, Intact. 19:34 Reassessment: Delay in transporting patient upstairs due to registration and the wrong 4 room number. Vital Signs: 13:39 Weight 72.57 kg; ph 15:00 BP 135 / 99; Pulse 78; Resp 18; Pulse Ox 99% ; cp4 16:00 BP 157 / 100; Pulse 79; Resp 18; Pulse Ox 98% ; cp4 17:00 BP 152 / 93; Pulse 73; Resp 18; Pulse Ox 96% ; cp4 Ale Coma Score: 13:50 Eye Response: spontaneous(4). Motor Response: obeys commands(6). Verbal Response: ph confused(4). Total: 14. ED Course: 13:34 Patient arrived in ED. ph 13:44 Mejia Juares MD is Attending Physician. godfrey 13:46 Triage completed. ph 13:47 Arm band placed on. ph 14:03 Adilia Corona, RN is Primary Nurse. ph 14:15 CT Head Brain wo Cont In Process Unspecified. EDMS 15:11 XRAY Chest (1 view) In Process Unspecified. EDMS 15:15 Initial lab(s) drawn, by me, sent to lab. Morales cath inserted, using sterile technique, ph 16 Fr., by me, balloon inflated, urine specimen collected. returned cloudy urine. Patient tolerated well. Inserted saline lock: 22 gauge in left antecubital area, using aseptic technique. 15:17 AMMONIA Sent. hb 15:17 Lactate w/ 2H reflex if indic. Sent. hb 15:18 CT Chest Abdomen Pelvis W/O Contrast In Process Unspecified. EDMS 15:18 Acetaminophen Sent. hb 15:18 ETOH Level Sent. hb 15:18 Ptt, Activated Sent. hb 15:18 Salicylate Sent. hb 15:18 Urinalysis w/ reflexes Sent. hb 15:18 Urine Drug Screen Sent. hb 15:18 Basic Metabolic Panel Sent. hb 15:18 CBC with Diff Sent. hb 15:18 LFT's Sent. hb 15:18 Magnesium Sent. hb 15:18 NT PRO-BNP Sent. hb 15:18 PT-INR Sent. hb 15:18 Troponin HS Sent. hb 15:30 First set of blood cultures drawn Second set of blood cultures drawn by me, Urine cp4 collected: Morales catheter specimen, COVID swab sent to lab. Flu and/or RSV swab sent to lab. Inserted. 15:41 SARS RAPID Sent. cp4 15:41 Flu Sent. cp4 15:41 AMMONIA Sent. cp4 15:41 Lactate w/ 2H reflex if indic. Sent. cp4 15:41 Blood Culture Adult (2) Sent. cp4 15:41 Acetaminophen Sent. cp4 15:41 ETOH Level Sent. cp4 15:41 Ptt, Activated Sent. cp4 15:41 Salicylate Sent. cp4 15:41 Urinalysis w/ reflexes Sent. cp4 15:41 Urine Drug Screen Sent. cp4 15:41 Basic Metabolic Panel Sent. cp4 15:41 LFT's Sent. cp4 15:41 Magnesium Sent. cp4 15:41 NT PRO-BNP Sent. cp4 15:42 Placed in gown. Bed in low position. Call light in reach. Side rails up X2. cp4 15:42 PT-INR Sent. cp4 15:42 Troponin HS Sent. cp4 15:42 No provider procedures requiring assistance completed. cp4 16:40 Raoul Hopper MD is Hospitalizing Provider. godfrye 18:48 Seizure precautions initiated. cp4 18:48 Provided Education on: admission. cp4 19:32 Patient admitted, IV remains in place. cp4 Administered Medications: 16:11 Drug: Famotidine IVP 20 mg IVP once; dilute with 10 mL 0.9% NaCl; give over 2 minutes cp4 Route: IVP; Site: left antecubital; 18:42 Follow up: Response: No adverse reaction cp4 16:12 Drug: NS 0.9% IV 1000 ml IV at 1 bolus Per protocol; 1000 mL bolus Route: IV; Rate: 1 cp4 bolus; Site: left antecubital; 16:12 Drug: Rocephin IV 1 grams IV at per protocol once; Given slow IV push per pharmacy cp4 instructions Route: IV; Rate: per protocol; Site: left antecubital; 16:20 Follow up: IV Status: Completed infusion cp4 18:44 Follow up: Response: No adverse reaction cp4 17:30 Drug: Keppra IV 1000 mg IV at per protocol once Route: IV; Rate: per protocol; Site: cp4 left antecubital; 18:41 Follow up: IV Status: Completed infusion cp4 18:42 Follow up: Response: No adverse reaction cp4 17:34 Drug: Potassium PO Effervescent Tablet 50 mEq PO once; dissolve in 4 ounces of water or cp4 juice Route: PO; 18:42 Follow up: Response: No adverse reaction cp4 17:43 Drug: Lactulose PO 60 grams 45 ml PO once Volume: 45 ml; Route: PO; cp4 18:42 Follow up: Response: No adverse reaction cp4 18:42 Drug: Zithromax IVPB 500 mg IVPB once over 1 hrs; mix in 250 mL NS Route: IVPB; Infused cp4 Over: 1 hrs; Site: left antecubital; Medication: 15:42 VIS not applicable for this client. cp4 Outcome: 16:42 Decision to Hospitalize by Provider. godfrey 19:32 Admitted to Tele accompanied by nurse, via stretcher, cp4 19:32 Condition: stable 19:32 Instructed on the need for admit, Demonstrated understanding of instructions, follow-up care, 19:36 Patient left the ED. cp4 Signatures: Dispatcher [employer] Mejia Siddiqui MD MD cha Hall, Patricia, RN RN Yvette Flores RN RN hb Potter, Christina cp4
--- NOTE | 2023-09-14 16:43 | EDPHYS ---
Physician Documentation [facility] Name: Maisha Leo Age: 63 yrs Sex: Female : 1960 Arrival Date: 09/14/2023 Time: 13:33 Bed 16 Private MD: ED Physician Mejia Juares HPI: 09/13 16:33 This 63 yrs old Female presents to ER via EMS with complaints of Seizure. godfrey Historical: - Allergies: 13:46 PENICILLINS; ph - PMHx: 13:46 ADD/ADHD; Bipolar disorder; Cerebrovascular accident; Cirrhosis; COPD; CVA; Left sided ph weakness; Fibromyalgia; Hypertension; Hypothyroidism; Myocardial infarction; Seizures; - PSHx: 13:46 right big toe; ph - Immunization history:: Adult Immunizations up to date. - Infectious Disease History:: Denies. CDIFF, C. Auris, ESBL, MRSA (w/in 1 year), VRE (w/in 1 year), TB, . - Social history:: Smoking status: unknown. ROS: 16:34 Constitutional: Negative for fever, chills, and weight loss, godfrey 16:34 Eyes: Negative for injury, pain, redness, and discharge, ENT: Negative for injury, godfrey pain, and discharge, Neck: Negative for injury, pain, and swelling, Cardiovascular: Negative for chest pain, palpitations, and edema, Respiratory: Negative for shortness of breath, cough, wheezing, and pleuritic chest pain, Abdomen/GI: Negative for abdominal pain, nausea, vomiting, diarrhea, and constipation, Back: Negative for injury and pain, : Negative for injury, bleeding, discharge, and swelling, MS/Extremity: Negative for injury and deformity, Skin: Negative for injury, rash, and discoloration, Psych: Negative for depression, anxiety, suicide ideation, homicidal ideation, and hallucinations, Allergy/Immunology: Negative for hives, rash, and allergies, Endocrine: Negative for neck swelling, polydipsia, polyuria, polyphagia, and marked weight changes, Hematologic/Lymphatic: Negative for swollen nodes, abnormal bleeding, and unusual bruising, 16:34 Neuro: Positive for altered mental status, seizure activity, speech changes, near syncope, weakness, Exam: 16:35 Head/Face: Normocephalic, atraumatic. Eyes: Pupils equal round and reactive to light, godfrey extra-ocular motions intact. Lids and lashes normal. Conjunctiva and sclera are non-icteric and not injected. Cornea within normal limits. Periorbital areas with no swelling, redness, or edema. ENT: Nares patent. No nasal discharge, no septal abnormalities noted. Tympanic membranes are normal and external auditory canals are clear. Oropharynx with no redness, swelling, or masses, exudates, or evidence of obstruction, uvula midline. Mucous membranes moist. Neck: Trachea midline, no thyromegaly or masses palpated, and no cervical lymphadenopathy. Supple, full range of motion without nuchal rigidity, or vertebral point tenderness. No Meningismus. Chest/axilla: Normal chest wall appearance and motion. Nontender with no deformity. No lesions are appreciated. Cardiovascular: Regular rate and rhythm with a normal S1 and S2. No gallops, murmurs, or rubs. Normal PMI, no JVD. No pulse deficits. Respiratory: Lungs have equal breath sounds bilaterally, clear to auscultation and percussion. No rales, rhonchi or wheezes noted. No increased work of breathing, no retractions or nasal flaring. Back: No spinal tenderness. No costovertebral tenderness. Full range of motion. Female : Normal external genitalia. MS/ Extremity: Pulses equal, no cyanosis. Neurovascular intact. Full, normal range of motion. Psych: Awake, alert, with orientation to person, place and time. Behavior, mood, and affect are within normal limits. 16:35 ECG was reviewed by the Attending Physician. 16:35 Abdomen/GI: Inspection: distension, Bowel sounds: normal, Palpation: soft, nontender, Liver: no appreciated palpable abnormalities, Hernia: not appreciated, Vital Signs: 13:39 Weight 72.57 kg; ph 15:00 BP 135 / 99; Pulse 78; Resp 18; Pulse Ox 99% ; cp4 16:00 BP 157 / 100; Pulse 79; Resp 18; Pulse Ox 98% ; cp4 17:00 BP 152 / 93; Pulse 73; Resp 18; Pulse Ox 96% ; cp4 Clayton Coma Score: 13:50 Eye Response: spontaneous(4). Motor Response: obeys commands(6). Verbal Response: ph confused(4). Total: 14. MDM: 13:44 Patient medically screened. [facility] 16:36 Differential diagnosis: cerebral vascular accident, drug overdose, cardiac arrhythmia, godfrey seizure, TIA. Data reviewed: vital signs, nurses notes, EMS record, lab test result(s), EKG, radiologic studies, CT scan, plain films. Consideration of Admission/Observation Patient was admitted/placed on observation. Escalation of care including admission/observation considered. I considered the following discharge prescriptions or medication management in the emergency department Medications were administered in the Emergency Department. See MAR. Independent interpretation of the following test(s) in the Emergency Department EKG: See my EKG interpretation above. Test considered but Not performed: Ultrasound NO ABD USG. Historians other than the Patient: EMS: EMS WELL INFORMED. Care significantly affected by the following chronic conditions: Hypertension, Chronic Obstructive Pulmonary Disease, Obesity, Liver Disease, CIRRHOSIS, CVA, FIBROMYALGIA, BIPOLAR. Counseling: I had a detailed discussion with the patient and/or guardian regarding the historical points, exam findings, and any diagnostic results supporting the discharge/admit diagnosis, lab results, radiology results, the need for further work-up and treatment in the hospital. 09/13 13:46 Order name: Basic Metabolic Panel; Complete Time: 16:29 09/13 13:46 Order name: CBC with Diff 09/13 13:46 Order name: LFT's; Complete Time: 16:29 09/13 13:46 Order name: Magnesium; Complete Time: 16:29 09/13 13:46 Order name: NT PRO-BNP; Complete Time: 16:29 09/13 13:46 Order name: PT-INR; Complete Time: 16:29 09/13 13:46 Order name: Troponin HS; Complete Time: 16:29 09/13 13:46 Order name: Acetaminophen; Complete Time: 16:29 09/13 13:46 Order name: ETOH Level; Complete Time: 16:29 09/13 13:46 Order name: Ptt, Activated; Complete Time: 16:29 09/13 13:46 Order name: Salicylate; Complete Time: 16:29 09/13 13:46 Order name: Urinalysis w/ reflexes; Complete Time: 16:29 09/13 13:46 Order name: Urine Drug Screen; Complete Time: 16:29 09/13 14:33 Order name: Blood Culture Adult (2) 09/13 14:33 Order name: Lactate w/ 2H reflex if indic.; Complete Time: 16:29 [facility] 09/13 14:33 Order name: AMMONIA; Complete Time: 16:29 [facility] 09/13 14:33 Order name: Flu [facility] 09/13 14:33 Order name: SARS RAPID [facility] 09/13 18:14 Order name: Ammonia EDMS 09/13 18:14 Order name: Ammonia EDMS 09/13 18:14 Order name: CBC with Automated Diff EDMS 09/13 18:14 Order name: CBC with Automated Diff EDMS 09/13 18:14 Order name: Comprehensive Metabolic Panel EDMS 09/13 18:14 Order name: Comprehensive Metabolic Panel EDMS 09/13 18:14 Order name: Protime (+INR) EDMS 09/13 18:14 Order name: Protime (+INR) EDMS 09/13 18:14 Order name: PTT, Activated Partial Thromb EDMS 09/13 18:14 Order name: PTT, Activated Partial Thromb EDMS 09/13 18:18 Order name: CBC Smear Scan EDMS 09/13 13:46 Order name: XRAY Chest (1 view); Complete Time: 16:29 [facility] 09/13 13:46 Order name: CT Head Brain wo Cont; Complete Time: 14:31 [facility] 09/13 14:33 Order name: CT Chest Abdomen Pelvis W/O Contrast; Complete Time: 16:29 [facility] 09/13 13:46 Order name: EKG; Complete Time: 13:47 [facility] 09/13 18:15 Order name: [facility] Cons [facility] 09/13 18:15 Order name: Physical Therapy Consult EDDC 09/13 13:46 Order name: Cardiac monitoring; Complete Time: 15:18 [facility] 09/13 13:46 Order name: EKG - Nurse/Tech; Complete Time: 16:12 [facility] 09/13 13:46 Order name: IV Saline Lock; Complete Time: 15:18 [facility] 09/13 13:46 Order name: Labs collected and sent; Complete Time: 15:18 [facility] 09/13 13:46 Order name: O2 Per Protocol; Complete Time: 15:18 [facility] 09/13 13:46 Order name: O2 Sat Monitoring; Complete Time: 15:18 godfrey 09/13 13:46 Order name: Seizure Precautions; Complete Time: 15:17 [facility] 09/13 16:40 Order name: Neurovascular Checks; Complete Time: 16:53 godfrey EC:35 Rate is 78 beats/min. Rhythm is regular. QRS [place] is Normal. DC interval is normal. QRS godfrey interval is normal. QT interval is normal. No Q waves. T waves are Normal. No ST changes noted. Clinical impression: NSR w/ Non-specific ST/T Changes, Abnormal EKG without significant change, and No evidence of ischemia. Interpreted by me. Reviewed by me. Administered Medications: 16:11 Drug: Famotidine IVP 20 mg IVP once; dilute with 10 mL 0.9% NaCl; give over 2 minutes cp4 Route: IVP; Site: left antecubital; 18:42 Follow up: Response: No adverse reaction cp4 16:12 Drug: NS 0.9% IV 1000 ml IV at 1 bolus Per protocol; 1000 mL bolus Route: IV; Rate: 1 cp4 bolus; Site: left antecubital; 16:12 Drug: Rocephin IV 1 grams IV at per protocol once; Given slow IV push per pharmacy cp4 instructions Route: IV; Rate: per protocol; Site: left antecubital; 16:20 Follow up: IV Status: Completed infusion cp4 18:44 Follow up: Response: No adverse reaction cp4 17:30 Drug: Keppra IV 1000 mg IV at per protocol once Route: IV; Rate: per protocol; Site: 4 left antecubital; 18:41 Follow up: IV Status: Completed infusion cp4 18:42 Follow up: Response: No adverse reaction cp4 17:34 Drug: Potassium PO Effervescent Tablet 50 mEq PO once; dissolve in 4 ounces of water or cp4 juice Route: PO; 18:42 Follow up: Response: No adverse reaction cp4 17:43 Drug: Lactulose PO 60 grams 45 ml PO once Volume: 45 ml; Route: PO; cp4 18:42 Follow up: Response: No adverse reaction cp4 18:42 Drug: Zithromax IVPB 500 mg IVPB once over 1 hrs; mix in 250 mL NS Route: IVPB; Infused cp4 Over: 1 hrs; Site: left antecubital; Disposition Summary: 09/14/23 16:42 Hospitalization Ordered Notes: Hospitalization Status: Inpatient Admission godfrey Provider: Raoul Hopper cha Location: Telemetry/[facility]Sur (Inpatient) godfrey Condition: Fair godfrey Problem: new godfrey Symptoms: have improved godfrey Bed/Room Type: [facility] Room Assignment: 203(09/14/23 18:46) dw Diagnosis - 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 godfrey with seizures of localized onset - Unspecified cirrhosis of liver godfrey - Encephalopathy, unspecified - HEPATIC godfrey - Weakness godfrey - Hypokalemia godfrey - Abuse of other non-psychoactive substances godfrey - Adverse effect of amphetamines godfrey Forms: - Medication Reconciliation Form godfrey - SBAR form godfrey - Leadership Thank You Letter [facility] Signatures: Dispatcher [employer] EDMS Princess Kang Diana, RN RN dw Anderson, Corey, MD MD cha Hall, Patricia, RN RN Kay, Charis cp4 Corrections: (The following items were deleted from the chart) 13:47 13:47 BASIC METABOLIC PANEL+C.LAB.BRZ ordered. EDMS EDMS 13:47 13:47 CBC+H.LAB.BRZ ordered. EDMS EDMS 13:47 13:47 HEPATIC FUNCTION+C.LAB.BRZ ordered. EDMS EDMS 13:47 13:47 MAGNESIUM+C.LAB.BRZ ordered. EDMS EDMS 13:47 13:47 PROBNP+C.LAB.BRZ ordered. EDMS EDMS 13:47 13:47 PROTIME (+INR)+COAG.LAB.BRZ ordered. EDMS EDMS 13:47 13:47 Troponin High Sensitivity+C.LAB.BRZ ordered. EDMS EDMS 13:47 13:47 ACETAMINOPHEN+C.LAB.BRZ ordered. EDMS EDMS 13:47 13:47 ETHANOL+C.LAB.BRZ ordered. EDMS EDMS 13:47 13:47 PTT, ACTIVATED+COAG.LAB.BRZ ordered. EDMS EDMS 13:47 13:47 SALICYLATE+C.LAB.BRZ ordered. EDMS EDMS 13:47 13:47 Urinalysis+U.LAB.BRZ ordered. EDMS EDMS 13:47 13:47 URINE DRUG SCREEN+UC.LAB.BRZ ordered. EDMS EDMS 14:36 14:36 Chest Abdomen Pelvis Wo Con+CT.RAD.BRZ ordered. EDMS EDMS 15:18 13:46 Suicide Screening ([place]) ordered. [facility] hb 18:24 16:42 godfrey bd 18:28 18:24 421 bd bd 18:46 18:28 215 bd dw
[2023-09-14] MEDS: LACTULOSE 20 GM/30 ML UCUP PO STA (16:47)
[2023-09-14 16:55] LABS: SARS-CoV-2 Antigen CONTROL BLUE LINE VIS/BG OK; SARS-CoV-2 Antigen Rapid Res Negative (Negative)
[2023-09-14] MEDS ORDERED: LEVETIRACETAM 500 MG/5 ML VIAL IV ONE (17:14)
[2023-09-14] MEDS ORDERED: AZITHROMYCIN 500 MG INJ IVPB ONE (17:14)
[2023-09-14] MEDS ORDERED: POTASSIUM 25 MEQ EFFERV TAB ONE (17:15)
[2023-09-14] MEDS ORDERED: NA CHLORIDE 0.9% 100 ML ONE (17:15)
[2023-09-14] MEDS ORDERED: NA CHLORIDE 0.9% 250 ML ONE (17:16)
[2023-09-14 18:18] LABS: Anisocytosis 1+; Blood Morphology Comment NOTED (NOT SEEN); Platelet Estimate DECR; White Blood Cell Scan OK (OK)
--- NOTE | 2023-09-14 18:36 | P.HP ---
Certification for Inpatient Patient admitted to: Inpatient With expected LOS: >2 Midnights Patient will require the following post-hospital care: None Practitioner: I am a practitioner with admitting privileges, knowledge of patient current condition, hospital course, and medical plan of care. Services: Services provided to patient in accordance with Admission requirements found in Title 42 Section 412.3 of the Code of Federal Regulations Patient History Date of Service: 09/14/23 Reason for admission: Altered mental status History of Present Illness: Patient is a 63-year-old female who presents to the emergency room with altered mental status. Patient states she was not feeling like herself and her mentation had deteriorated. She has not been taking her lactulose as prescribed. Her mentation has worsened. She has fallen and she suffered a contusion to the scalp. CT of the head was unremarkable. Labs revealed significantly elevated ammonia level. Patient was given lactulose in the emergency room. Patient also with a wound on the right foot. She said has been there for quite a while. Will get wound healing to evaluate the patient. Continue with antibiotic therapy. Continue monitoring labs. Patient is very lethargic and not really able to give me much more information. Patient has a history of severe pulmonary hypertension and drug abuse. Patient's had a history of cocaine abuse, alcohol abuse, and she is also positive for amphetamines on this admission. She tends to be homeless and lives with different friends of hers. She really has not had much of a stable environment for quite a while. She does not really take her medications as ordered. She has a questionable history of seizure disorder for which she takes Keppra. She is also had hypothyroidism which she takes levothyroxine. Patient has cirrhosis secondary to alcohol abuse and hepatitis C. Allergies Penicillins Allergy (Intermediate, Verified 04/18/19 23:29) Anaphylaxis Home Medications: Gabapentin 600 mg PO TID 09/03/22 levETIRAcetam [Keppra*] 750 mg PO BID 10/27/22 Atorvastatin Calcium [Lipitor*] 40 mg PO BEDTIME #30 tab 11/04/22 Levothyroxine [Synthroid*] 0.125 mg PO DAILYAC #30 tab 11/04/22 Folic Acid 1 mg PO DAILY 04/04/23 Lamotrigine [Lamictal] 25 mg PO DAILY 04/04/23 Meloxicam [Mobic*] 7.5 mg PO BID PRN 04/04/23 Collagenase [Santyl Ointment*] 1 appl TOP DAILY #4 oz 07/26/23 Lactulose [Cephulac*] 30 ml PO BID #8 oz 07/26/23 Mupirocin Oint [Bactroban 2% Ointment*] 1 appl TOP TID #15 gm 07/26/23 Minocycline HCl 100 mg PO BID #20 07/27/23 - Past Medical/Surgical History Diabetic: No -: Hypothyroidism -: HTN -: Anxiety -: Seizures -: HX HI x2 -: HX CVA - Left side wekness -: Osteoarthritis -: Hepatitis C -: liver cirrhosis -: Geovanny's paralysis -: Neck Surgery -: Tubal Ligation Psychosocial/ Personal History: Patient states she lives with "an old man and his " - Family History Mother Medical History: Heart disease, Diabetes Father Medical History: Other (see notes) Notes: Alzheimers Brother Medical History: Other (see notes) Notes: COPD, Bone Cancer, Back Surgery - Social History Smoking Status: Current every day smoker Alcohol use: Yes CD- Drugs: Yes Caffeine use: Yes Review of Systems 10-point ROS is otherwise unremarkable Physical Examination - Vital Signs Temperature: 98 F Blood Pressure: 110/60 Pulse: 120 Respirations: 20 Pulse Ox (%): 92 - Physical Exam General: Alert, In no apparent distress, Oriented x1, Confused HEENT: Atraumatic, PERRLA, Mucous membr. moist/pink, EOMI, Sclerae nonicteric Neck: Supple, 2+ carotid pulse no bruit, No LAD, Without JVD or thyroid abnormality Respiratory: Diminished, Crackles/rales Cardiovascular: Regular rate/rhythm, Normal S1 S2, Systolic murmur Gastrointestinal: Normal bowel sounds, Soft and benign, Non-distended, No tenderness Musculoskeletal: No clubbing, No swelling, No tenderness Integumentary: Skin lesion, Tenderness/swelling, Erythema, Warmth Neurological: Normal speech, Normal tone, Sensation intact, Cranial nerves 3-12 intact, Abnormal gait, Abnormal strength, Abnormal affect Lymphatics: No axilla or inguinal lymphadenopathy - Studies Laboratory Data (last 24 hrs) 09/14/23 09/14/23 09/14/23 15:05 15:05 15:05 WBC 4.20 L Hgb 12.8 Hct 39.0 Plt Count 126 L PT 13.9 H INR 1.27 APTT 37.9 H Sodium 138 Potassium 3.2 L BUN 16 Creatinine 0.97 Glucose 88 Magnesium 1.8 Total Bilirubin 1.4 H AST 100 H ALT 40 Alkaline Phosphatase 107 Microbiology Data (last 24 hrs): 09/14/23 16:00 Nasopharnyx Influenza Type A Antigen Screen - Final 09/14/23 16:00 Nasopharnyx Influenza Type B Antigen Screen - Final Assessment & Plan - Problems (Diagnosis) (1) Hepatic encephalopathy Onset Date: 11/18/17 Current Visit: No Status: Acute (2) Fall Current Visit: No Status: Acute (3) Cellulitis of right foot Current Visit: No Status: Acute (4) Liver cirrhosis Current Visit: No Status: Acute (5) Amphetamine abuse Current Visit: Yes Status: Acute (6) Cocaine abuse Onset Date: 11/18/17 Current Visit: No Status: Chronic (7) Hepatitis C Current Visit: No Status: Chronic (8) History of CVA (cerebrovascular accident) Current Visit: No Status: Chronic (9) Hx of myocardial infarction Current Visit: No Status: Chronic (10) Hypertension Current Visit: No Status: Chronic (11) Hypothyroidism Onset Date: 11/18/17 Current Visit: No Status: Chronic Qualifiers: (12) Seizures Current Visit: No Status: Chronic (13) Tobacco abuse Onset Date: 11/18/17 Current Visit: No Status: Chronic - Plan Plan: 1. Hepatic encephalopathy; continue with lactulose. If patient's ammonia level is not improving and mentation has not improved that we may add rifaximin. Continue monitoring liver function testing. Will add some gentle hydration. 2. History of cirrhosis secondary to hepatitis C and alcohol abuse; continue monitoring liver function test. Monitor ammonia level. 3. History of polysubstance abuse; patient with history of cocaine and amphetamine abuse along with alcohol abuse. Monitor for withdrawal symptoms 4. History of seizure disorder; continue with antiepileptics. Patient on Keppra at home. We will resume. 5. Patient with a history of CVA; continue with antiplatelet therapy 6. History of tobacco use; continue with nicotine patch 7. Wound to the right foot; continue with antibiotic therapy and consult wound healing center. 8. GI DVT prophylaxis Discharge Plan: Home Plan to discharge in: Greater than 2 days - Advance Directives Does patient have a Living Will: No Does patient have a Durable POA for Healthcare: No - Code Status/Comfort Care Code Status Assessed: Yes Code Status: Full Code Critical Care: No Time Spent Managing PTS Care (In Minutes): 45
[2023-09-14] MEDS: NA CHLORIDE 0.9% 1,000 ML IV SCH (19:00)
[2023-09-14] MEDS: VANCOMYCIN 1.75 GM in NA CHLORIDE 0.9% 500 ML IVPB ONE (19:30)
[2023-09-14] MEDS: POTASSIUM CL SA 10 MEQ TAB PO SCH (20:41)
[2023-09-14] MEDS: NICOTINE 21 MG/PAT TD SCH (20:42)
[2023-09-14] MEDS: Levofloxacin500mg IV 500 MG/100 ML BAG IV ONE (20:42)
[2023-09-14] MEDS: Magnesium Sulfate 2gm IVPB 2 G/50 ML BAG IV ONE (20:42)
[2023-09-14] MEDS: chlordiazePOXIDE HCl 5 MG CAP PO SCH (20:42)
[2023-09-14] MEDS: levETIRAcetam 500 MG TAB PO SCH (20:42)
[2023-09-14 20:58] VITALS: BMI 35.2
[2023-09-14] MEDS: VANCOMYCIN 1.25 GM in NA CHLORIDE 0.9% 250 ML IVPB SCH (21:00)
[2023-09-14] MEDS: VANCOMYCIN 1 GM/VIAL ONE (22:10)
[2023-09-14] MEDS: NA CHLORIDE 0.9% 250 ML ONE (22:11)
[2023-09-14] MEDS: ONDANSETRON 4 MG/2 ML VIAL IV PRN (22:24)
[2023-09-15 04:04] LABS: Absolute Eosinophils 0.1 K/uL (0-0.5); Absolute Lymphocytes (CBC) 1.1 K/uL (0.7-4.9); Absolute Monocytes 0.4 K/uL (0.1-1.3); Absolute Neutrophil 1.6 K/uL (1.8-8.0); Basophils % 1.3 % (0-1.3); Eosinophils % 2.6 % (0-4.4); Hematocrit 35.4 % (36.0-45.0); Hemoglobin 11.6 g/dL (12.0-15.0); Lymphocytes % 34.3 % (15.3-44.8); MCH 28.9 pg (27.0-35.0); MCHC 32.7 g/dL (32.0-36.0); MCV 88.4 fL (80-100); MPV 7.5 fL (7.6-11.3); Monocytes % 12.3 % (3.3-12.3); Neutrophils % 49.5 % (41.7-73.7); Platelets 90 thou/uL (152-406); Red Cell Distribution Width 20.6 % (12.1-15.2)
[2023-09-15 04:13] LABS: PT Prothrombin Time 13.8 SECONDS (9.5-12.5); PTT, Activated Partial Thromb 40.4 SECONDS (24.3-36.9); Protime INR 1.26
[2023-09-15 04:19] LABS: Albumin 2.1 g/dL (3.4-5.0); Albumin/Globulin Ratio 0.4 (1.1-1.8); Anion Gap 7.6 mEq/L (5.0-15.0); Bilirubin Total 0.9 mg/dL (0.2-1.0); Globulin 4.9 g/dL (2.3-3.5); Potassium 3.6 mEq/L (3.5-5.1)
[2023-09-15] MEDS: LACTULOSE 20 GM/30 ML UCUP PO SCH (04:31)
[2023-09-15] MEDS: MORPHINE 2 MG/ML SYR IV PRN (04:32)
[2023-09-15 05:16] LABS: Anisocytosis 1+; Blood Morphology Comment NOTED (NOT SEEN); Platelet Estimate DECR; White Blood Cell Scan OK (OK)
[2023-09-15] MEDS: LEVOTHYROXINE SOD 0.125 MG TAB PO SCH (05:42)
--- NOTE | 2023-09-15 09:51 | P.PN ---
Subjective Date of Service: 09/16/23 Chief Complaint: Altered mental status Subjective: Improving more alert, ammonia level decreasing <Priya Quigley - Last Filed: 09/16/23 08:50> Date of Service: 09/16/23 <Berna Dempsey Bailey - Last Filed: 09/16/23 12:34> Review of Systems 10-point ROS is otherwise unremarkable General: As per HPI ENT: Unremarkable Respiratory: Unremarkable Cardiovascular: Unremarkable Musculoskeletal: As per HPI Integumentary: As per HPI Neurological: As per HPI <Priya Quigley - Last Filed: 09/16/23 08:50> Physical Examination - Vital Signs Temperature: 97.8 F Blood Pressure: 141/83 Pulse: 65 Respirations: 15 Pulse Ox (%): 91 - Physical Exam General: In no apparent distress, Oriented x3, Cooperative HEENT: Atraumatic, Normocephalic Neck: Supple Respiratory: Normal air movement Cardiovascular: Normal pulses, Regular rate/rhythm Capillary refill: <2 Seconds Musculoskeletal: No swelling, Other (dorsum of right foot with shallow ulceration without significant surrounding skin changes) Integumentary: Arterial ulcer, Other (dorusm of right foot with arterial ulcer, mild jaundice) Neurological: Other (somnolent but easily arousable) Lymphatics: No axilla or inguinal lymphadenopathy External genitalia: Deferred Rectal: Deferred - Studies Laboratory Data (last 24 hrs) 09/14/23 09/14/23 09/14/23 15:05 15:05 15:05 WBC 4.20 L Hgb 12.8 Hct 39.0 Plt Count 126 L PT 13.9 H INR 1.27 APTT 37.9 H Sodium 138 Potassium 3.2 L BUN 16 Creatinine 0.97 Glucose 88 Magnesium 1.8 Total Bilirubin 1.4 H AST 100 H ALT 40 Alkaline Phosphatase 107 Microbiology Data (last 24 hrs): 09/14/23 16:00 Nasopharnyx Influenza Type A Antigen Screen - Final 09/14/23 16:00 Nasopharnyx Influenza Type B Antigen Screen - Final <Priya Quigley - Last Filed: 09/16/23 08:50> Assessment And Plan - Plan Assessment & Plan - Problems (Diagnosis) (1) Hepatic encephalopathy Onset Date: 11/18/17 Current Visit: No Status: Acute (2) Fall Current Visit: No Status: Acute (3) Cellulitis of right foot Current Visit: No Status: Acute (4) Liver cirrhosis Current Visit: No Status: Acute (5) Amphetamine abuse Current Visit: Yes Status: Acute (6) Cocaine abuse Onset Date: 11/18/17 Current Visit: No Status: Chronic (7) Hepatitis C Current Visit: No Status: Chronic (8) History of CVA (cerebrovascular accident) Current Visit: No Status: Chronic (9) Hx of myocardial infarction Current Visit: No Status: Chronic (10) Hypertension Current Visit: No Status: Chronic (11) Hypothyroidism Onset Date: 11/18/17 Current Visit: No Status: Chronic Qualifiers: (12) Seizures Current Visit: No Status: Chronic (13) Tobacco abuse Onset Date: 11/18/17 Current Visit: No Status: Chronic - Plan Plan: 1. Hepatic encephalopathy; continue with lactulose. If patient's ammonia level is not improving and mentation has not improved that we may add rifaximin. Continue monitoring liver function testing. Will add some gentle hydration. 2. History of cirrhosis secondary to hepatitis C and alcohol abuse; continue monitoring liver function test. Monitor ammonia level. trending down 09/15/23 3. History of polysubstance abuse; patient with history of cocaine and amphetamine abuse along with alcohol abuse. Monitor for withdrawal symptoms 4. History of seizure disorder; continue with antiepileptics. Patient on Keppra at home. We will resume. 5. Patient with a history of CVA; continue with antiplatelet therapy 6. History of tobacco use; continue with nicotine patch 7. Wound to the right foot; continue with antibiotic therapy and consult wound healing center. old wound, arterial ulcer (no surrounding erythema), seen in Aug 02 with monophasic flow per doppler study 8. GI DVT prophylaxis <Priya Quigley - Last Filed: 09/16/23 08:50> - Plan Pt seen and examined. 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 Ammonia level is 89. Will continue lactulose in order to improve the ammonia level. Pt is AAOX3. Continue home meds for other chronic medical problems. <Berna Dempsey - Last Filed: 09/16/23 12:34>
[2023-09-15] MEDS: COLLAGENASE 30 GM OINTMENT TOP SCH (09:53)
--- NOTE | 2023-09-15 12:42 | EKG ---
Test Date: 2023-09-14 Test Time: 16:09:23 Professor Of Environmental Science: MONIQUE MEASUREMENT RESULTS: Intervals: Rate: 78 VA: 184 QRSD: 108 QT: 486 QTc: 554 [place]: P: 52 VA: 184 QRS: -9 T: 85 INTERPRETIVE STATEMENTS: Normal sinus rhythm Septal infarct, age undetermined Abnormal ECG Compared to ECG 07/26/2023 21:28:12 Myocardial infarct finding now present Ventricular premature complex(es) no longer present Prolonged QT interval no longer present Electronically Signed On 09-15-23 12:40:21 CDT by Andrew Upton
[2023-09-15] MEDS: VANCOMYCIN 1.5 GM in NA CHLORIDE 0.9% 500 ML IVPB SCH (18:00)
[2023-09-15] MEDS ORDERED: VANCOMYCIN 1.75 GM in NA CHLORIDE 0.9% 500 ML IVPB SCH (20:00)
[2023-09-15] MEDS: Levofloxacin500mg IV 500 MG/100 ML BAG IV SCH (20:13)
[2023-09-16] MEDS: LACTULOSE 20 GM/30 ML UCUP PO SCH ×2 (08:32→16:31)
--- NOTE | 2023-09-16 08:51 | P.PN ---
Subjective Date of Service: 09/16/23 Chief Complaint: Altered mental status Subjective: Other (awakes to voice, states she is feeling better but is weak) <QuigleyPriya Bonilla - Last Filed: 09/16/23 08:51> Date of Service: 09/16/23 <Berna Dempsey Bailey - Last Filed: 09/16/23 12:35> Review of Systems 10-point ROS is otherwise unremarkable General: Weakness, Malaise Integumentary: As per HPI Neurological: Confusion, As per HPI <Priya Quigley - Last Filed: 09/16/23 08:51> Physical Examination - Vital Signs Temperature: 97.8 F Blood Pressure: 141/83 Pulse: 65 Respirations: 15 Pulse Ox (%): 91 - Physical Exam General: Cooperative, Disheveled HEENT: Atraumatic, Normocephalic Neck: 2+ carotid pulse no bruit Respiratory: Normal air movement Cardiovascular: No edema Capillary refill: <2 Seconds Gastrointestinal: Soft and benign Musculoskeletal: No clubbing Integumentary: Arterial ulcer, Other (dorsum of right foot, no dc/ mild jaundice) Neurological: Abnormal speech, Abnormal tone Lymphatics: No axilla or inguinal lymphadenopathy External genitalia: Deferred Rectal: Deferred <DannPriya Bonilla - Last Filed: 09/16/23 08:51> Assessment And Plan - Plan Assessment & Plan - Problems (Diagnosis) (1) Hepatic encephalopathy Onset Date: 11/18/17 Current Visit: No Status: Acute (2) Fall Current Visit: No Status: Acute (3) Cellulitis of right foot Current Visit: No Status: Acute (4) Liver cirrhosis Current Visit: No Status: Acute (5) Amphetamine abuse Current Visit: Yes Status: Acute (6) Cocaine abuse Onset Date: 11/18/17 Current Visit: No Status: Chronic (7) Hepatitis C Current Visit: No Status: Chronic (8) History of CVA (cerebrovascular accident) Current Visit: No Status: Chronic (9) Hx of myocardial infarction Current Visit: No Status: Chronic (10) Hypertension Current Visit: No Status: Chronic (11) Hypothyroidism Onset Date: 11/18/17 Current Visit: No Status: Chronic Qualifiers: (12) Seizures Current Visit: No Status: Chronic (13) Tobacco abuse Onset Date: 11/18/17 Current Visit: No Status: Chronic - Plan Plan: 1. Hepatic encephalopathy; continue with lactulose. If patient's ammonia level is not improving and mentation has not improved that we may add rifaximin. Continue monitoring liver function testing. Will add some gentle hydration. Ammonia level had trended down yesterday but is up to >120 today, will increase lactulose until 2 bm's today. 2. History of cirrhosis secondary to hepatitis C and alcohol abuse; continue monitoring liver function test. 3. History of polysubstance abuse; patient with history of cocaine and amphetamine abuse along with alcohol abuse. Monitor for withdrawal symptoms, decrease librium to 10mg TID 4. History of seizure disorder; continue with antiepileptics. Patient on Keppra at home. We will resume. 5. Patient with a history of CVA; continue with antiplatelet therapy 6. History of tobacco use; continue with nicotine patch 7. Wound to the right foot; continue with antibiotic therapy and consult wound healing center. old wound, arterial ulcer (no surrounding erythema), seen in Aug 02 with monophasic flow per doppler study, keep clean and dry 8. GI DVT prophylaxis <Priya Quigley - Last Filed: 09/16/23 08:51> - Plan Pt seen and examined. I agree with the note by the INSTRUCTOR FLYING. Ammonia is 126 <- 89. Will optimize lactulose. If unchanged, will add rifaximin. Continue other home meds. <Berna Dempsey - Last Filed: 09/16/23 12:35>
[2023-09-16] MEDS ORDERED: Rifaximin 550 MG Tab PO SCH (09:00)
[2023-09-16] MEDS: chlordiazePOXIDE HCl 5 MG CAP PO SCH (10:07)
[2023-09-17 09:23] LABS: Absolute Eosinophils 0.1 K/uL (0-0.5); Absolute Lymphocytes (CBC) 0.8 K/uL (0.7-4.9); Absolute Monocytes 0.4 K/uL (0.1-1.3); Absolute Neutrophil 1.7 K/uL (1.8-8.0); Basophils % 0.5 % (0-1.3); Eosinophils % 2.8 % (0-4.4); Hematocrit 36.5 % (36.0-45.0); Hemoglobin 12.2 g/dL (12.0-15.0); Lymphocytes % 26.9 % (15.3-44.8); MCH 29.8 pg (27.0-35.0); MCHC 33.3 g/dL (32.0-36.0); MCV 89.5 fL (80-100); MPV 7.6 fL (7.6-11.3); Monocytes % 12.1 % (3.3-12.3); Neutrophils % 57.7 % (41.7-73.7); Nucleated Red Blood Cells % 0.5 % (0-0); Platelets 111 thou/uL (152-406); RBC Red Blood Cell Count 4.08 M/uL (3.86-4.86); Red Cell Distribution Width 20.3 % (12.1-15.2)
[2023-09-17] MEDS ORDERED: BISACODYL 10 MG RECTAL SUPP PR PRN (09:26)
[2023-09-17 09:39] LABS: Albumin/Globulin Ratio 0.4 (1.1-1.8); Bilirubin Total 0.5 mg/dL (0.2-1.0); Globulin 4.9 g/dL (2.3-3.5); Protein, Total 6.9 g/dL (6.4-8.2)
[2023-09-17] MEDS: BISACODYL E.C. 5 MG TAB PO ONE (10:03)
--- NOTE | 2023-09-17 12:23 | P.PN ---
Subjective Date of Service: 09/17/23 Chief Complaint: Altered mental status Subjective: No new changes pt has not had a BM even with q2h Lactulose: ammonia level mostly unchanged. Will try po and pr dulcolax now <Priya Quigleylen - Last Filed: 09/17/23 12:19> Date of Service: 09/17/23 <Berna Dempsey C - Last Filed: 09/17/23 14:20> Review of Systems 10-point ROS is otherwise unremarkable General: Weakness, Malaise Gastrointestinal: Constipation Neurological: As per HPI <Priya Quigleylen - Last Filed: 09/17/23 12:19> Physical Examination - Vital Signs Temperature: 99.0 F Blood Pressure: 118/67 Pulse: 87 Respirations: 16 Pulse Ox (%): 95 - Physical Exam General: In no apparent distress, Oriented x3 HEENT: Normocephalic Neck: JVD not distended Respiratory: Normal air movement Cardiovascular: Normal pulses Capillary refill: <2 Seconds Gastrointestinal: Non-distended, No tenderness Musculoskeletal: No swelling Integumentary: Other (jaundiced) Neurological: Abnormal strength, Abnormal tone Lymphatics: No axilla or inguinal lymphadenopathy External genitalia: Deferred Rectal: Deferred <Priya Quigley - Last Filed: 09/17/23 12:19> Assessment And Plan - Plan Assessment & Plan - Problems (Diagnosis) (1) Hepatic encephalopathy Onset Date: 11/18/17 Current Visit: No Status: Acute (2) Fall Current Visit: No Status: Acute (3) Cellulitis of right foot Current Visit: No Status: Acute (4) Liver cirrhosis Current Visit: No Status: Acute (5) Amphetamine abuse Current Visit: Yes Status: Acute (6) Cocaine abuse Onset Date: 11/18/17 Current Visit: No Status: Chronic (7) Hepatitis C Current Visit: No Status: Chronic (8) History of CVA (cerebrovascular accident) Current Visit: No Status: Chronic (9) Hx of myocardial infarction Current Visit: No Status: Chronic (10) Hypertension Current Visit: No Status: Chronic (11) Hypothyroidism Onset Date: 11/18/17 Current Visit: No Status: Chronic Qualifiers: (12) Seizures Current Visit: No Status: Chronic (13) Tobacco abuse Onset Date: 11/18/17 Current Visit: No Status: Chronic - Plan Plan: 1. Hepatic encephalopathy; continue with lactulose. If patient's ammonia level is not improving and mentation has not improved that we may add rifaximin. Continue monitoring liver function testing. Will add some gentle hydration. Ammonia level had trended down yesterday but is up to >120 today, will increase lactulose until 2 bm's today. no bm yesterday, will add dulcolax po and pr now and reassess 2. History of cirrhosis secondary to hepatitis C and alcohol abuse; continue monitoring liver function test. 3. History of polysubstance abuse; patient with history of cocaine and amphetamine abuse along with alcohol abuse. Monitor for withdrawal symptoms, decrease librium to 10mg TID 4. History of seizure disorder; continue with antiepileptics. Patient on Keppra at home. We will resume. 5. Patient with a history of CVA; continue with antiplatelet therapy 6. History of tobacco use; continue with nicotine patch 7. Wound to the right foot; continue with antibiotic therapy and consult wound healing center. old wound, arterial ulcer (no surrounding erythema), seen in Aug 02 with monophasic flow per doppler study, keep clean and dry 8. GI DVT prophylaxis <Pirya Quigley - Last Filed: 09/17/23 12:19> - Plan Pt seen and examined. I agree with the note by the CLIENT SUPPORT COORDINATOR. Ammonia is still elevated. She is getting lactulose 20mg po Q2h without any BM yet. Ammonia level is 114 <- 89 <- 126. She is AAOx3. Continue other home meds. <Berna Dempsey - Last Filed: 09/17/23 14:20>
[2023-09-17] MEDS: BISACODYL 10 MG RECTAL SUPP PR SCH (12:30)
[2023-09-17] MEDS: chlordiazePOXIDE HCl 5 MG CAP PO SCH (14:00)
[2023-09-18 01:11] VITALS: O2SAT 93
[2023-09-18 03:38] LABS: Absolute Eosinophils 0.1 K/uL (0-0.5); Absolute Lymphocytes (CBC) 0.9 K/uL (0.7-4.9); Absolute Monocytes 0.8 K/uL (0.1-1.3); Absolute Neutrophil 4.9 K/uL (1.8-8.0); Basophils % 0.7 % (0-1.3); Eosinophils % 1.1 % (0-4.4); Hemoglobin 12.1 g/dL (12.0-15.0); Lymphocytes % 12.9 % (15.3-44.8); MCH 29.7 pg (27.0-35.0); MCHC 32.8 g/dL (32.0-36.0); MCV 90.7 fL (80-100); Monocytes % 11.5 % (3.3-12.3); Neutrophils % 73.8 % (41.7-73.7); Platelets 94 thou/uL (152-406); RBC Red Blood Cell Count 4.08 M/uL (3.86-4.86)
[2023-09-18 03:39] LABS: Red Cell Distribution Width 21.4 % (12.1-15.2)
[2023-09-18 03:44] LABS: Albumin 1.8 g/dL (3.4-5.0); Albumin/Globulin Ratio 0.4 (1.1-1.8); Anion Gap 4.8 mEq/L (5.0-15.0); Bilirubin Total 0.5 mg/dL (0.2-1.0); Globulin 4.7 g/dL (2.3-3.5); Potassium 3.8 mEq/L (3.5-5.1); Protein, Total 6.5 g/dL (6.4-8.2)
[2023-09-18] MEDS: chlordiazePOXIDE HCl 5 MG CAP PO SCH (10:14)
[2023-09-18] MEDS: NICOTINE 14 MG/PAT TD SCH (10:14)
[2023-09-18] MEDS: levoFLOXacin 500 MG TAB PO SCH (10:19)
--- NOTE | 2023-09-18 12:44 | P.DS ---
Admission Date: 09/14/23 Discharge Date: 09/18/23 Reason for Admission: Altered mental status Brief History of Present Illness: Patient is a 63-year-old female who presents to the emergency room with altered mental status. Patient states she was not feeling like herself and her mentat ion had deteriorated. She has not been taking her lactulose as prescribed. Her mentation has worsened. She has fallen and she suffered a contusion to the scalp. CT of the head was unremarkable. Labs revealed significantly elevated ammonia level. Patient was given lactulose in the emergency room. Patient also with a wound on the right foot. She said has been there for quite a while. Will get wound healing to evaluate the patient. Continue with antibiotic therapy. Continue monitoring labs. Patient is very lethargic and not really able to give me much more information. Patient has a history of severe pulmonary hypertension and drug abuse. Patient's had a history of cocaine abuse, alcohol abuse, and she is also positive for amphetamines on this admission. She tends to be homeless and lives with different friends of hers. She really has not had much of a stable environment for quite a while. She does not really take her medications as ordered. She has a questionable history of seizure disorder for which she takes Keppra. She is also had hypothyroidism which she takes levothyroxine. Patient has cirrhosis secondary to alcohol abuse and hepatitis C. Hospital Course: Ms. Leo's hospital course was complicated by lack of ammonia clearance secondary to constipation. This morning her ammonia is down to within normal limits she is oriented x 3, she understands she must maintain her lactulose regimen and avoid alcohol and illicit substances. <Priya Quigley - Last Filed: 09/18/23 12:45> Admission Date: 09/14/23 Discharge Date: 09/19/23 Hospital Course: Pt seen and examined. I agree with the note by the AIR AND WATER TESTER. Ammonia level has improved. Pt was advised to continue lactulose at home. Ok to discharge pt. <Berna Dempsey - Last Filed: 09/19/23 22:04> Disposition: DC HOME/HOME HEALTH CARE Discharge Condition: FAIR Vital Signs/Physical Exam: Temp Pulse Resp BP Pulse Ox 99.5 F 87 16 98/50 L 94 09/18/23 08:00 09/18/23 08:00 09/18/23 08:00 09/18/23 08:00 09/18/23 08:00 General: In no apparent distress, Oriented x3 HEENT: Atraumatic, Normocephalic Neck: JVD not distended Respiratory: Normal air movement Cardiovascular: Regular rate/rhythm, Systolic murmur Gastrointestinal: Soft and benign Musculoskeletal: No swelling Integumentary: Arterial ulcer, Other (to dorsum of right foot, jaundice) Neurological: Abnormal strength, Abnormal tone Lymphatics: No axilla or inguinal lymphadenopathy External genitalia: Deferred Rectal: Deferred Laboratory Data at Discharge: WBC 6.60 thou/uL (4.3-10.9) 09/18/23 03:05 Hgb 12.1 g/dL (12.0-15.0) 09/18/23 03:05 Hct 37.0 % (36.0-45.0) 09/18/23 03:05 Plt Count 94 thou/uL (152-406) L 09/18/23 03:05 PT 13.8 SECONDS (9.5-12.5) H 09/15/23 03:40 INR 1.26 09/15/23 03:40 APTT 40.4 SECONDS (24.3-36.9) H 09/15/23 03:40 Sodium 136 mEq/L (136-145) 09/18/23 03:05 Potassium 3.8 mEq/L (3.5-5.1) 09/18/23 03:05 BUN 7 mg/dL (7-18) 09/18/23 03:05 Creatinine 0.92 mg/dL (0.55-1.02) 09/18/23 03:05 Glucose 97 mg/dL (74-106) 09/18/23 03:05 Magnesium 1.8 mg/dL (1.6-2.4) 09/14/23 15:05 Total Bilirubin 0.5 mg/dL (0.2-1.0) 09/18/23 03:05 AST 76 U/L (15-37) H 09/18/23 03:05 ALT 35 U/L (13-56) 09/18/23 03:05 Alkaline Phosphatase 97 U/L (45-117) 09/18/23 03:05 <Quigley,Priya Chad - Last Filed: 09/18/23 12:45> Vital Signs/Physical Exam: Temp Pulse Resp BP Pulse Ox 98.6 F 98 H 16 103/57 L 94 09/18/23 12:00 09/18/23 12:00 09/18/23 12:00 09/18/23 12:00 09/18/23 12:00 Laboratory Data at Discharge: WBC 6.60 thou/uL (4.3-10.9) 09/18/23 03:05 Hgb 12.1 g/dL (12.0-15.0) 09/18/23 03:05 Hct 37.0 % (36.0-45.0) 09/18/23 03:05 Plt Count 94 thou/uL (152-406) L 09/18/23 03:05 PT 13.8 SECONDS (9.5-12.5) H 09/15/23 03:40 INR 1.26 09/15/23 03:40 APTT 40.4 SECONDS (24.3-36.9) H 09/15/23 03:40 Sodium 136 mEq/L (136-145) 09/18/23 03:05 Potassium 3.8 mEq/L (3.5-5.1) 09/18/23 03:05 BUN 7 mg/dL (7-18) 09/18/23 03:05 Creatinine 0.92 mg/dL (0.55-1.02) 09/18/23 03:05 Glucose 97 mg/dL (74-106) 09/18/23 03:05 Magnesium 1.8 mg/dL (1.6-2.4) 09/14/23 15:05 Total Bilirubin 0.5 mg/dL (0.2-1.0) 09/18/23 03:05 AST 76 U/L (15-37) H 09/18/23 03:05 ALT 35 U/L (13-56) 09/18/23 03:05 Alkaline Phosphatase 97 U/L (45-117) 09/18/23 03:05 <Berna Dempsey - Last Filed: 09/19/23 22:04> Diet: AHA Activity: Ad karina <Quigley,Priya Chad - Last Filed: 09/18/23 12:45> <Berna Dempsey - Last Filed: 09/19/23 22:04> Home Medications: Gabapentin 600 mg PO TID 09/03/22 levETIRAcetam [Keppra*] 750 mg PO BID 10/27/22 Atorvastatin Calcium [Lipitor*] 40 mg PO BEDTIME #30 tab 11/04/22 Levothyroxine [Synthroid*] 0.125 mg PO DAILYAC #30 tab 11/04/22 Folic Acid 1 mg PO DAILY 04/04/23 Lamotrigine [Lamictal] 25 mg PO DAILY 04/04/23 Collagenase [Santyl Ointment*] 1 appl TOP DAILY #4 oz 07/26/23 Lactulose [Cephulac*] 30 ml PO BID #8 oz 07/26/23 Mupirocin Oint [Bactroban 2% Ointment*] 1 appl TOP TID #15 gm 07/26/23 Minocycline HCl 100 mg PO BID #20 07/27/23 levoFLOXacin [Levaquin*] 500 mg PO DAILY #7 tab 09/18/23 New Medications: levoFLOXacin [Levaquin*] 500 mg PO DAILY #7 tab Physician Discharge Instructions: Ms. Leo's hospital course was complicated by lack of ammonia clearance secondary to constipation. This morning her ammonia is down to within normal limits she is oriented x 3, she understands she must maintain her lactulose regimen and avoid alcohol and illicit substances Okay to DC IV and DC home Follow-up with primary care provider in 1 to 2 weeks Please call the inpatient unit for any questions or concerns regarding hospital stay Return to the ER for worsening symptoms Will continue Levaquin x 7 days for wound treatment. Continue intranasal mupirocin/bactroban as instructed Followup: NONE,NONE [Primary Care Provider] -
[2023-09-18 13:22] VITALS: BP 103/57; TEMP 98.6
[2023-09-18] MEDS: ACETAMINOPHEN 500 MG TAB PO PRN (14:14)
== END 2023-09-18 17:13 | disposition home health service (06) | DRG 442 ==
LOC: ER 13:33 → ERHOLD 18:06 → 2ND 18:31
PROVIDERS: ADMIT Hospitalist; ATTEND Hospitalist
DX: K76.82 Hepatic encephalopathy (principal); L03.115 Cellulitis of right lower limb; Z59.01 Sheltered homelessness; M79.7 Fibromyalgia; E03.9 Hypothyroidism, unspecified; I10 Essential (primary) hypertension; M19.90 Unspecified osteoarthritis, unspecified site; K70.30 Alcoholic cirrhosis of liver without ascites; K59.00 Constipation, unspecified; B19.20 Unspecified viral hepatitis C without hepatic coma; F10.10 Alcohol abuse, uncomplicated; F15.10 Other stimulant abuse, uncomplicated; F14.10 Cocaine abuse, uncomplicated; J44.9 Chronic obstructive pulmonary disease, unspecified; L97.519 Non-pressure chronic ulcer of other part of right foot with unspecified severity; F17.210 Nicotine dependence, cigarettes, uncomplicated; I25.2 Old myocardial infarction; Z88.0 Allergy status to penicillin; Z11.52 Encounter for screening for COVID-19; Z98.51 Tubal ligation status; Z86.73 Personal history of transient ischemic attack (TIA), and cerebral infarction without residual deficits; Z86.14 Personal history of Methicillin resistant Staphylococcus aureus infection; Z91.148 Patient's other noncompliance with medication regimen for other reason; Z79.899 Other long term (current) drug therapy; Z79.890 Hormone replacement therapy; Y90.0 Blood alcohol level of less than 20 mg/100 ml
CPT/HCPCS: 36415; 51702; 70450; 71045; 71250; 74176; 80048; 80053; 80076; 80143; 80179; 80202; 80307; 81001; 82077; 82140; 83605; 83735; 83880; 84484; 85025; 85610; 85730; 87040; 87804; 87811; 93005; 96365; 96375; 97110; 97116; 97530; 99285; J0696; J1953; J2270; J2405; J3475; J3590; J7030; J7040; J7050

== ENCOUNTER 2023-09-19 12:51 | Inpatient (IN) | payer OTHER ==
[2023-09-19] MEDS ORDERED: NA CHLORIDE 0.9% 500 ML ONE (13:12)
[2023-09-19] MEDS ORDERED: MORPHINE 2 MG/ML SYR ONE (13:12)
[2023-09-19] MEDS ORDERED: ONDANSETRON 4 MG/2 ML VIAL ONE (13:12)
[2023-09-19 15:03] LABS: Specific Gravity 1.011 (1.005-1.030); Urine Bilirubin NEGATIVE (Negative); Urine Blood Negative (Negative); Urine Clarity Clear (Clear); Urine Color Light-Yellow (Yellow); Urine Glucose NEGATIVE (Negative); Urine Ketones NEGATIVE (Negative); Urine Microscopic Reflex YN NO UMIC; Urine Nitrite NEGATIVE (Negative); Urine Protein NEGATIVE (Negative); Urine Urobilinogen Normal (Normal)
--- NOTE | 2023-09-19 15:12 | RAD REPORT ---
EXAM DESCRIPTION: CT - Head C Spine Cap W Con - 09/19/2023 1:45 pm CLINICAL HISTORY: fall, head/back/pelvic pain COMPARISON: Head C Spine Cap W Con dated 07/02/2023; Head C Spine Cap Wo Con dated 11/25/2022; Head C Spine Cap Wo Con dated 11/16/2022; Head C Spine Cap Wo Con dated 10/27/2022 TECHNIQUE: Head and cervical spine CT images were obtained without IV contrast. Chest, abdomen, and pelvis CT images were obtained following intravenous administration of 100 mL Isovue-300. Multiplanar reformats were generated and reviewed. All CT scans are performed using dose optimization technique as appropriate and may include automated exposure control or mA/KV adjustment according to patient size. FINDINGS: CT HEAD: No intracranial hemorrhage, mass effect, or edema. No evidence of acute territorial infarct. No midli ne shift or abnormal fluid collection. The ventricles are normal in caliber and configuration for age . Basal cisterns are patent. Mastoid aircells and paranasal sinuses are clear. No acute skull fractur e. CT CERVICAL SPINE: No acute cervical spine fracture or subluxation. Postsurgical changes of posterior decompression and posterior approach fusion spanning C3 -C6 again seen. Vertebral body heights are well maintained. Fac et joints are normal in alignment. No hyperattenuating canal hematoma. Prevertebral and paraspinous s oft tissues are unremarkable. Stable bulky appearance of the right thyroid lobe. No discrete nodules identified. CT CHEST: No pneumothorax, pulmonary contusion. Small layering bilateral pleural effusions with subsegmental at electasis. . No mediastinal hematoma and the aorta and pulmonary arteries are unremarkable. No chest will mass or abnormal axillary finding. No displaced rib fracture or other significant bony finding. CT ABDOMEN/ PELVIS: No evidence of traumatic injury to solid abdominal viscera. Gallbladder and biliary tree are unremark able. No bowel injury or significant finding. No free air, free fluid or abnormal fat stranding. No u rinary bladder abnormality. Nodular appearance of the liver again seen, again with recanalization of the umbilical vein. Colonic diverticulosis. Short segments of fluid-filled small bowel in the left fl ank. Stable splenic calcifications No significant bony finding. Grade 1 spondylolisthesis at L5-S1, and stable sclerotic changes along the lower lumbar levels. Mild body wall, retroperitoneal, and presacral edema. IMPRESSION: No acute traumatic findings. Short segments of fluid-filled small bowel in the left flank, may relate to diarrheal state or mild e nteritis. Mild body wall, retroperitoneal, and presacral edema. Stable sequelae of cirrhosis, and other incidental findings as above.
[2023-09-19] MEDS ORDERED: MORPHINE 4 MG/ML SYR ONE (15:33)
[2023-09-19 15:43] LABS: Absolute Eosinophils 0.1 K/uL (0-0.5); Absolute Lymphocytes (CBC) 0.8 K/uL (0.7-4.9); Absolute Monocytes 0.3 K/uL (0.1-1.3); Absolute Neutrophil 4.4 K/uL (1.8-8.0); Basophils % 0.8 % (0-1.3); Eosinophils % 1.3 % (0-4.4); Hemoglobin 12.5 g/dL (12.0-15.0); Lymphocytes % 13.7 % (15.3-44.8); MCH 29.8 pg (27.0-35.0); MCHC 32.9 g/dL (32.0-36.0); MCV 90.6 fL (80-100); Neutrophils % 78.2 % (41.7-73.7); Platelets 90 thou/uL (152-406); RBC Red Blood Cell Count 4.19 M/uL (3.86-4.86); Red Cell Distribution Width 20.4 % (12.1-15.2)
[2023-09-19 15:50] LABS: PTT, Activated Partial Thromb 35.9 SECONDS (24.3-36.9)
[2023-09-19 15:51] LABS: PT Prothrombin Time 16.2 SECONDS (9.5-12.5); Protime INR 1.49
--- NOTE | 2023-09-19 15:59 | RAD REPORT ---
EXAM DESCRIPTION: RAD - Tib Fib Left - 09/19/2023 3:36 pm CLINICAL HISTORY: PAIN COMPARISON: No comparisons TECHNIQUE: Left tibia and fibula, 2 views. FINDINGS: No fracture is identified. Moderate to large knee joint effusion. Moderate knee joint dege nerative changes. There is no dislocation or periosteal reaction noted. No foreign body or other soft tissue abnormalit y. IMPRESSION: No acute osseus abnormality. Moderate to large knee joint effusion. .
--- NOTE | 2023-09-19 16:00 | RAD REPORT ---
EXAM DESCRIPTION: RAD - Femur Left - 09/19/2023 3:36 pm CLINICAL HISTORY: PAIN COMPARISON: Femur Left dated 07/02/2023 TECHNIQUE: Left femur, 2 views. FINDINGS: No fracture is identified. There is no dislocation or periosteal reaction noted. No acute or suspicious bony finding. IMPRESSION: Negative left femur examination.
--- NOTE | 2023-09-19 16:12 | RAD REPORT ---
EXAM DESCRIPTION: RAD - Femur Right - 09/19/2023 3:36 pm CLINICAL HISTORY: PAIN COMPARISON: Femur Right dated 07/02/2023 TECHNIQUE: Right femur, 2 views. FINDINGS: No fracture is identified. There is no dislocation or periosteal reaction noted. Moderate knee joint degenerative changes. No acute or suspicious bony finding. IMPRESSION: Moderate knee joint degenerative changes. No acute osseous abnormality.
--- NOTE | 2023-09-19 16:23 | RAD REPORT ---
EXAM DESCRIPTION: RAD - Tib Fib Right - 09/19/2023 3:36 pm CLINICAL HISTORY: PAIN COMPARISON: Tib Fib Right dated 11/25/2022 TECHNIQUE: Right tibia and fibula, 2 views. FINDINGS: No fracture is identified. Stable deformity at the distal fibula. Moderate degenerative ch anges of the knee, with some posterior downsloping of the medial tibial plateau. There is no dislocat ion or periosteal reaction noted. No acute or suspicious bony finding. No foreign body or other soft tissue abnormality. IMPRESSION: No acute osseus abnormality. Stable findings as above.
[2023-09-19 16:29] LABS: Anisocytosis 1+; Blood Morphology Comment NOTED (NOT SEEN); Platelet Estimate DECR; White Blood Cell Scan OK (OK)
--- NOTE | 2023-09-19 17:13 | EDPHYS ---
Physician Documentation [facility] Name: Maisha Leo Age: 63 yrs Sex: Female : 1960 Arrival Date: 09/19/2023 Time: 12:51 Bed 17 Private MD: ED Physician Michael Faith HPI: 09/18 17:08 This 63 yrs old Female presents to ER via EMS with complaints of Fall Injury. rn 17:08 Details of fall: The patient fell from a supine position, out of bed. Onset: The rn symptoms/episode began/occurred this morning. Associated injuries: The patient sustained neck injury, injury to the low back, injury to the chest, Right leg, left leg. Severity of symptoms: At their worst the symptoms were moderate, in the emergency department the symptoms are unchanged. The patient has not experienced similar symptoms in the past. The patient has not recently seen a physician. Patient reports fall out of bed when trying to transfer herself. Unable to get herself up. Has no one to help her at home. States depends on neighbors to come over occasionally to help her. Neighbors found her on the ground covered in feces. Increased weakness and pain all over.. Historical: - Allergies: 12:59 PENICILLINS; db - PMHx: 12:59 ADD/ADHD; Bipolar disorder; Cerebrovascular accident; Cirrhosis; COPD; CVA; Left sided db weakness; Hypertension; Hypothyroidism; Myocardial infarction; Seizures; Fibromyalgia; 13:01 HEPATITIS; db - PSHx: 12:59 right big toe; db - Immunization history:: Adult Immunizations unknown. - Infectious Disease History:: Denies. - Immunization history: Last tetanus immunization: - up to date. - Social history:: Smoking status: Patient reports the use of cigarette tobacco products. - Family history:: not pertinent. - Hospitalizations: : The patient was recently seen at [facility]. ROS: 17:08 Constitutional: Negative for fever, chills, and weight loss, Eyes: Negative for injury, rn pain, redness, and discharge, Neck: Positive for neck pain Cardiovascular: Negative for chest pain, palpitations, and edema, Respiratory: Negative for shortness of breath, cough, wheezing, and pleuritic chest pain, Abdomen/GI: Negative for abdominal pain, nausea, vomiting, diarrhea, and constipation, Back: Positive for back pain MS/Extremity: Positive for pain to bilateral lower extremities Skin: Negative for injury, rash, and discoloration, Neuro: Positive for generalized weakness Exam: 14:41 ECG was reviewed by the Attending Physician. rn 17:08 Constitutional: Disheveled patient, feces all over her legs and bandages ENT: Dry rn mucous membranes Cardiovascular: Regular rate and rhythm. No pulse deficits. Respiratory: No increased work of breathing, no retractions or nasal flaring. Abdomen/GI: Soft, nontender Back: No spinal tenderness MS/ Extremity: Pulses equal, no cyanosis. Pain with range of motion bilateral lower extremities, no gross deformity, abrasions and contusions to bilateral knees Neuro: Awake and alert, GCS 15, oriented to person, place, time, and situation. 4 out of 5 strength throughout, more weakness on the left side compared to right. Vital Signs: 12:52 BP 145 / 91 LA Supine (auto/lg); Pulse 76 MON; Resp 16; Temp 96.9(TE); Pulse Ox 96% on ty R/A; Weight 90.26 kg (M); Height 5 ft. 5 in. (R); Pain 10/10; 15:11 BP 126 / 93; Pulse 79; Resp 14; Pulse Ox 96% on R/A; me1 16:00 BP 111 / 74; Pulse 78; Resp 12; Pulse Ox 96% on R/A; me1 17:00 BP 128 / 83; Pulse 79; Resp 13; Pulse Ox 96% ; me1 18:00 BP 126 / 81; Pulse 76; Resp 10; Pulse Ox 96% on R/A; me1 19:00 BP 104 / 77; Pulse 75; Resp 11; Pulse Ox 96% on R/A; me1 20:00 BP 98 / 74; Pulse 74; Resp 10; Pulse Ox 96% on R/A; me1 12:52 Body Mass Index 33.11 (90.26 kg, 165.1 cm) ty 12:52 Pain Scale: Adult ty [place] Coma Score: 14:03 Eye Response: spontaneous(4). Motor Response: obeys commands(6). Verbal Response: db oriented(5). Total: 15. Trauma Score (Adult): 14:03 Eye Response: spontaneous(1); Verbal Response: oriented(1); Motor Response: obeys db commands(2); Systolic BP: > 89 mm Hg(4); Respiratory Rate: 10 to 29 per min(4); [place] Score: 15; Trauma Score: 12 MDM: 12:55 Patient medically screened. rn 17:08 Differential diagnosis: abrasion, closed head injury, contusion, fracture, sprain, rn strain, UTI, electrolyte disorder. Data reviewed: vital signs, nurses notes, lab test result(s), radiologic studies, CT scan, plain films, and as a result, I will admit patient. Consideration of Admission/Observation Patient was admitted/placed on observation. Escalation of care including admission/observation considered. Care significantly affected by the following chronic conditions: Hypertension, Chronic Obstructive Pulmonary Disease. Care significantly affected by the following Social Determinants of Health: Problems related to primary support group. Counseling: I had a detailed discussion with the patient and/or guardian regarding the historical points, exam findings, and any diagnostic results supporting the discharge/admit diagnosis, lab results, radiology results, the need for further work-up and treatment in the hospital. ED course: Patient with generalized weakness, pain not controlled, no acute traumatic findings found but has known output at home, too weak to care for self, covered in feces today. Will admit for weakness and pain control.. 09/18 12:56 Order name: Basic Metabolic Panel; Complete Time: 16:08 rn 09/18 12:56 Order name: CBC with Diff; Complete Time: 16:30 rn 09/18 12:56 Order name: Urinalysis w/ reflexes; Complete Time: 15:30 rn 09/18 12:56 Order name: Protime (+inr); Complete Time: 16:08 rn 09/18 12:56 Order name: Ptt, Activated; Complete Time: 16:08 rn 09/18 16:02 Order name: CBC Smear Scan; Complete Time: 16:30 EDMS 09/18 17:43 Order name: Ammonia EDMS 09/18 17:43 Order name: Urinalysis w/ reflexes EDMS 09/18 17:43 Order name: CBC with Automated Diff EDMS 09/18 17:43 Order name: CBC with Automated Diff EDMS 09/18 17:43 Order name: Comprehensive Metabolic Panel EDMS 09/18 17:43 Order name: Comprehensive Metabolic Panel EDMS 09/18 12:56 Order name: CT Traumagram (Head C Spine CAP W Con); Complete Time: 15:30 rn 09/18 13:51 Order name: XRAY Femur RIGHT; Complete Time: 16:30 rn 09/18 13:51 Order name: XRAY Femur LEFT; Complete Time: 16:08 rn 09/18 13:51 Order name: XRAY Tib Fib RIGHT; Complete Time: 16:30 rn 09/18 13:51 Order name: XRAY Tib Fib LEFT; Complete Time: 16:08 rn 09/18 17:43 Order name: Physical Therapy Consult EDMS 09/18 12:56 Order name: Labs collected and sent; Complete Time: 15:22 rn 09/18 12:56 Order name: EKG - Nurse/Tech; Complete Time: 13:32 rn 09/18 12:56 Order name: Cardiac monitoring; Complete Time: 13:32 rn EC:41 Rate is 81 beats/min. Rhythm is regular. QRS [place] is Normal. CO interval is normal. QRS rn interval is prolonged at 492 msec. T waves are Normal. No ST changes noted. Clinical impression: NSR w/ Non-specific ST/T Changes. Interpreted by me. Reviewed by me. Administered Medications: 13:35 Drug: NS 0.9% IV 500 ml IV at bolus once Route: IV; Rate: bolus; Site: left wrist; db 15:04 Follow up: Response: No adverse reaction; IV Status: Completed infusion; IV Intake: db 500ml 13:35 Drug: morphine IVP or IV 2 mg IVP once over 4 mins Route: IVP; Infused Over: 4 mins; db Site: left wrist; 15:04 Follow up: Response: No adverse reaction db 13:35 Drug: Ondansetron IVP 4 mg IVP once; over 2 minutes Route: IVP; Site: left wrist; db 15:04 Follow up: Response: No adverse reaction db 15:36 Drug: morphine IVP or IV 4 mg IVP once over 4 mins Route: IVP; Infused Over: 4 mins; me1 Site: left hand; 16:57 Follow up: Response: No adverse reaction; Pain is decreased me1 Disposition Summary: 09/19/23 17:13 Hospitalization Ordered Notes: Hospitalization Status: Observation rn Provider: Berna Dempsey rn Location: Telemetry/MedSurg (observation) rn Condition: Stable rn Problem: an ongoing problem rn Symptoms: are unchanged rn Bed/Room Type: Standard rn Room Assignment: 407(09/19/23 18:08) ghulam Diagnosis - Fall on same level, unspecified rn - Intractable pain rn - Muscle weakness (generalized) rn - Contusion of knee rn Forms: - Medication Reconciliation Form rn - SBAR form rn - Leadership Thank You Letter rn Signatures: Dispatcher [employer] EDTN Michael Faith MD MD rn Botello, Elizabeth eb Benton, Danielle RN AZIZA db Edelmira Robles RN RN me1 Corrections: (The following items were deleted from the chart) 12:57 12:57 Head C Spine CAP W Con+CT.RAD.BRZ ordered. [facility] EDTN 18:08 17:13 rn ghulam
--- NOTE | 2023-09-19 17:13 | ER ---
Nurse's Notes [facility] Name: Maisha Leo Age: 63 yrs Sex: Female : 1960 Arrival Date: 09/19/2023 Time: 12:51 Bed 17 Private MD: Diagnosis: Fall on same level, unspecified;Intractable pain;Muscle weakness (generalized);Contusion of knee Presentation: 09/18 12:47 Chief complaint: EMS states: PT REPORTS FALLING OUT OF BED. NEIGHBORS FOUND PT ON db GROUND AND CALLED 911. PT DEFECTED ON SELF AND NEED HELP. Coronavirus screen: Client denies travel out of the [place] in the last 14 days. At this time, the client does not indicate any symptoms associated with coronavirus-19. Ebola Screen: Patient negative for fever greater than or equal to 101.5 degrees Fahrenheit, and additional compatible Ebola Virus Disease symptoms Patient denies exposure to infectious person. Patient denies travel to an Ebola-affected area in the 21 days before illness onset. No symptoms or risks identified at this time. Initial Sepsis Screen: Does the patient meet any 2 criteria? No. Patient's initial sepsis screen is negative. Does the patient have a suspected source of infection? No. Patient's initial sepsis screen is negative. Risk Assessment: Do you want to hurt yourself or someone else? Patient reports no desire to harm self or others. Onset of symptoms was September 19, 2023. 12:47 Method Of Arrival: EMS: [facility] db 12:47 Acuity: ARTURO 2 db 20:29 Care prior to arrival:. fl1 20:33 Mechanism of Injury: Fall out of bed. fl1 Triage Assessment: 13:01 General: Appears in no apparent distress. comfortable, Behavior is calm, cooperative. db Pain: Complains of pain in head and face. Neuro: Level of Consciousness is awake, alert, obeys commands, Oriented to person, place, time, situation, Moves all extremities. Speech is normal. Cardiovascular: No deficits noted. Respiratory: Airway is patent Respiratory effort is even, unlabored, Respiratory pattern is regular, symmetrical. GI: PT INCONTINENT OF STOOL. : No deficits noted. No signs and/or symptoms were reported regarding the genitourinary system. Trauma Activation: Physician: ED Physician; Name: ; Notified At: ; Arrived At: Physician: General Surgeon; Name: ; Notified At: ; Arrived At: Physician: Radiology; Name: ; Notified At: ; Arrived At: Physician: Respiratory; Name: ; Notified At: ; Arrived At: Physician: Lab; Name: ; Notified At: ; Arrived At: 20:33 n/a me1 Historical: - Allergies: 12:59 PENICILLINS; db - PMHx: 12:59 ADD/ADHD; Bipolar disorder; Cerebrovascular accident; Cirrhosis; COPD; CVA; Left sided db weakness; Hypertension; Hypothyroidism; Myocardial infarction; Seizures; Fibromyalgia; 13:01 HEPATITIS; db - PSHx: 12:59 right big toe; db - Immunization history:: Adult Immunizations unknown. - Infectious Disease History:: Denies. - Immunization history: Last tetanus immunization: - up to date. - Social history:: Smoking status: Patient reports the use of cigarette tobacco products. - Family history:: not pertinent. - Hospitalizations: : The patient was recently seen at [facility]. Screenin:39 [facility] ED Fall Risk Assessment (Adult) History of falling in the last 3 months, db including since admission No falls in past 3 months (0 pts) Confusion or Disorientation No (0 pts) Intoxicated or Sedated No (0 pts) Impaired Gait No (0 pts) Mobility Assist Device Used No (0 pt) Altered Elimination No (0 pt) Score/Fall Risk Level 0 - 2 = Low Risk Oriented to surroundings, Maintained a safe environment. Abuse screen: Denies threats or abuse. Denies injuries from another. Nutritional screening: No deficits noted. Tuberculosis screening: No symptoms or risk factors identified. Primary Survey: 13:00 NO uncontrolled hemorrhage observed. A: The client is awake and alert. The airway is db patent. Breathing/Chest: Spontaneous respiratory effort, equal unlabored respirations, breath sounds clear bilaterally, regular pattern, symmetrical chest rise and fall. Respiratory effort: spontaneous, unlabored. Circulation: No external hemorrhage present. Regular and strong central pulse, skin warm/dry/normal color. Disability Client is alert. Exposure/Environment: All clothing and personal items were removed. Forensic evidence collection is not deemed to be indicated at this time. Items placed in patient belonging bag. There is no evidence of uncontrolled external bleeding. No obvious injuries are noted at this time. A warming method has been applied: A warm blanket has been provided to the patient. Reassessment Alertness and Airway: Awake and alert. The airway is patent. Airway Patent Breathing: Spontaneous respiratory effort, equal unlabored respirations, breath sounds clear bilaterally, regular pattern with symmetrical chest rise and fall. Respiratory effort Spontaneous Unlabored Circulation: No external hemorrhage noted. Regular and strong central pulse, skin warm/dry/normal color. Disability: Alert. Assessment: 13:05 Reassessment: SEE TRIAGE FOR INITIAL ASSESSMENT. db 14:35 Reassessment: PATIENT BRIEF CHANGED. PATIENT BRIEF FULL OF OF URINE AND STOOL. db 14:56 Reassessment: CALLED LAB FOR BLOOD DRAW DUE TO DIFFICULTY OBTAINING LABS. db 15:15 General: Appears uncomfortable, Behavior is calm, cooperative, appropriate for age. me1 Pain: Complains of pain in right leg and left leg Pain does not radiate. Pain currently is 10 out of 10 on a pain scale. Quality of pain is described as aching, Pain began suddenly, Is continuous. Neuro: Level of Consciousness is awake, alert, obeys commands, Oriented to person, place, time, situation, Appropriate for age. Cardiovascular: Capillary refill < 3 seconds Patient's skin is warm and dry. Respiratory: Airway is patent Respiratory effort is even, unlabored, Respiratory pattern is regular, symmetrical. GI: No signs and/or symptoms were reported involving the gastrointestinal system. : No signs and/or symptoms were reported regarding the genitourinary system. Derm: Skin Skin is jaundiced. Musculoskeletal: Reports pain in right leg and left leg since fall. 15:21 Reassessment: PT BACK IN ROOM LAB AT BEDSIDE FOR BLOOD DRAW. db Vital Signs: 12:52 BP 145 / 91 LA Supine (auto/lg); Pulse 76 MON; Resp 16; Temp 96.9(TE); Pulse Ox 96% on ty R/A; Weight 90.26 kg (M); Height 5 ft. 5 in. (R); Pain 10/10; 15:11 BP 126 / 93; Pulse 79; Resp 14; Pulse Ox 96% on R/A; me1 16:00 BP 111 / 74; Pulse 78; Resp 12; Pulse Ox 96% on R/A; me1 17:00 BP 128 / 83; Pulse 79; Resp 13; Pulse Ox 96% ; me1 18:00 BP 126 / 81; Pulse 76; Resp 10; Pulse Ox 96% on R/A; me1 19:00 BP 104 / 77; Pulse 75; Resp 11; Pulse Ox 96% on R/A; me1 20:00 BP 98 / 74; Pulse 74; Resp 10; Pulse Ox 96% on R/A; me1 12:52 Body Mass Index 33.11 (90.26 kg, 165.1 cm) ty 12:52 Pain Scale: Adult ty [place] Coma Score: 14:03 Eye Response: spontaneous(4). Motor Response: obeys commands(6). Verbal Response: db oriented(5). Total: 15. Trauma Score (Adult): 14:03 Eye Response: spontaneous(1); Verbal Response: oriented(1); Motor Response: obeys db commands(2); Systolic BP: > 89 mm Hg(4); Respiratory Rate: 10 to 29 per min(4); [place] Score: 15; Trauma Score: 12 ED Course: 12:52 Patient arrived in ED. ty 12:55 Michael Faith MD is Attending Physician. rn 12:56 Alysia Soto RN is Primary Nurse. db 12:59 Triage completed. db 13:01 Arm band placed on. db 13:14 Missed attempt(s): 24 gauge in right upper arm. Bleeding controlled, band aid applied, ty catheter tip intact. 13:15 Missed attempt(s): 24 gauge in right antecubital area. Bleeding controlled, band aid ty applied, catheter tip intact. 13:16 Missed attempt(s): 22 gauge upper arm. Bleeding controlled, band aid applied, catheter ty tip intact. 13:38 Patient has correct armband on for positive identification. Bed in low position. Call db light in reach. Side rails up X 1. Initial lab(s) drawn, by ED staff, sent to lab. 13:39 Initial lab(s) drawn, by ED staff, sent to lab. Inserted saline lock: 22 gauge in left db wrist, using aseptic technique. Blood collected. STARTED BY ED STAFF. 13:[address] via stretcher. db 13:40 Client placed on continuous cardiac and pulse oximetry monitoring. NIBP monitoring db applied. data architect manager on. Pulse ox on. NIBP on. 13:45 CT Traumagram (Head C Spine CAP W Con) In Process Unspecified. EDMS 14:35 Urine collected: Morales catheter specimen, clear. db 14:55 Morales cath inserted, using sterile technique, 16 Fr., by rotor casting machine operator, balloon inflated, to db gravity drainage, urine specimen collected. Patient tolerated well. 14:56 Patient moved to radiology. db 15:15 Provided Education on: POC. Verbalized understanding. . me1 15:15 No provider procedures requiring assistance completed. me1 15:21 Report given to AZIZA ELDER. db 15:22 Basic Metabolic Panel Sent. me1 15:22 CBC with Diff Sent. me1 15:23 Lab(s) recollected, by laborer steel handling, sent to lab. me1 15:38 XRAY Femur RIGHT In Process Unspecified. EDMS 15:38 XRAY Femur LEFT In Process Unspecified. EDMS 15:38 XRAY Tib Fib RIGHT In Process Unspecified. EDMS 15:38 XRAY Tib Fib LEFT In Process Unspecified. EDMS 17:12 Berna Dempsey MD is Hospitalizing Provider. rn 20:32 O2 via room air. me1 20:33 Patient admitted, IV remains in place. me1 20:33 Thermoregulation: warm blanket given to patient. me1 Administered Medications: 13:35 Drug: NS 0.9% IV 500 ml IV at bolus once Route: IV; Rate: bolus; Site: left wrist; db 15:04 Follow up: Response: No adverse reaction; IV Status: Completed infusion; IV Intake: db 500ml 13:35 Drug: morphine IVP or IV 2 mg IVP once over 4 mins Route: IVP; Infused Over: 4 mins; db Site: left wrist; 15:04 Follow up: Response: No adverse reaction db 13:35 Drug: Ondansetron IVP 4 mg IVP once; over 2 minutes Route: IVP; Site: left wrist; db 15:04 Follow up: Response: No adverse reaction db 15:36 Drug: morphine IVP or IV 4 mg IVP once over 4 mins Route: IVP; Infused Over: 4 mins; me1 Site: left hand; 16:57 Follow up: Response: No adverse reaction; Pain is decreased me1 Medication: 15:15 VIS not applicable for this client. me1 Intake: 15:04 IV: 500ml; Total: 500ml. db Outcome: 17:13 Decision to Hospitalize by Provider. rn 20:27 Admitted to Tele accompanied by tech, room 407, with chart, Report called to faxed per fl1 protocol 20:27 Condition: stable 20:27 Instructed on the need for admit, 20:28 Patient left the ED. [facility] [place] Signatures: Dispatcher [employer] Michael Rendon MD MD rn Benton, Danielle RN RN Edelmira Carlson RN RN fl1 Martell Allison ty Corrections: (The following items were deleted from the chart) 15:48 15:46 Missed attempt(s): 24 gauge in right upper arm. Bleeding controlled, band aid ty applied, catheter tip intact. ty
[2023-09-19] MEDS ORDERED: ALBUTEROL 2.5 MG/3 ML NEB SOL NEB PRN (17:38)
[2023-09-19] MEDS ORDERED: ONDANSETRON 4 MG/2 ML VIAL IV PRN (17:38)
--- NOTE | 2023-09-19 17:43 | P.HP ---
Patient History Date of Service: 09/19/23 Reason for admission: fall and scalp laceration History of Present Illness: Pt is a 63yo female with past medical history of ADD/ADHD, CVA, COPD, liver cirrhosis, Htn, Hypothyroidism, seizure, hepatitis and fibromyalgia who presents in the ER s/p fall at home. Pt reports tiarra she felt weak and fell of her bed. She landed on the left side of her body and sustained laceration on occipital part of her scalp. Her room mates discovered her covered in faeces and they brought her to the ER. Pt reports non-compliance with lactulose at home.Of note she was discharged from our service yesterday after she was treated for elevated ammonia. On admission, lab studies are unremarkable except ammonia of 59 and calcium of 7.6. The ER physician placed stitches on the scalp laceration and called medicine for admission. At bedside, pt is in NAD. She is AAOx3. Pt does not remember what happened. She denies any chest pain, SOB, fever, chills, nausea, vomiting, constipation, dysuria or leg edema but reports frequent stools. Allergies Penicillins Allergy (Intermediate, Verified 04/18/19 23:29) Anaphylaxis Home Medications: Gabapentin 600 mg PO TID 09/03/22 levETIRAcetam [Keppra*] 750 mg PO BID 10/27/22 Atorvastatin Calcium [Lipitor*] 40 mg PO BEDTIME #30 tab 11/04/22 Levothyroxine [Synthroid*] 0.125 mg PO DAILYAC #30 tab 11/04/22 Folic Acid 1 mg PO DAILY 04/04/23 Lamotrigine [Lamictal] 25 mg PO DAILY 04/04/23 Collagenase [Santyl Ointment*] 1 appl TOP DAILY #4 oz 07/26/23 Lactulose [Cephulac*] 30 ml PO BID #8 oz 07/26/23 Mupirocin Oint [Bactroban 2% Ointment*] 1 appl TOP TID #15 gm 07/26/23 Minocycline HCl 100 mg PO BID #20 07/27/23 levoFLOXacin [Levaquin*] 500 mg PO DAILY #7 tab 09/18/23 - Past Medical/Surgical History Diabetic: No -: Hypothyroidism -: HTN -: Anxiety -: Seizures -: HX VA x2 -: HX CVA - Left side wekness -: Osteoarthritis -: Hepatitis C -: liver cirrhosis -: Geovanny's paralysis -: Neck Surgery -: Tubal Ligation Psychosocial/ Personal History: Patient states she lives with "an old man and his " - Family History Mother -: Heart disease, Diabetes Father -: Other (see notes) Notes: Alzheimers Brother -: Other (see notes) Notes: COPD, Bone Cancer, Back Surgery - Social History Alcohol use: Yes CD- Drugs: Yes Caffeine use: Yes Review of Systems General: Unremarkable Eyes: Unremarkable ENT: Unremarkable Respiratory: Unremarkable Cardiovascular: Unremarkable Gastrointestinal: Other (frequent stools due to lactulose) Genitourinary: Unremarkable Musculoskeletal: Unremarkable Integumentary: Lesions Neurological: Unremarkable Lymphatics: Unremarkable Physical Examination - Physical Exam General: Alert, In no apparent distress, Oriented x3 HEENT: Atraumatic, Normocephalic, PERRLA Neck: Supple, 2+ carotid pulse no bruit Respiratory: Clear to auscultation bilaterally, Normal air movement Cardiovascular: No edema, Normal pulses, Regular rate/rhythm, Normal S1 S2 Capillary refill: <2 Seconds Gastrointestinal: Normal bowel sounds, Soft and benign, Non-distended Musculoskeletal: No clubbing, No swelling Integumentary: No rashes, Other (scvalp laceration) Neurological: Normal speech, Normal strength at 5/5 x4 extr, Normal tone, Sensation intact Lymphatics: No axilla or inguinal lymphadenopathy - Studies Laboratory Data (last 24 hrs) 09/19/23 09/19/23 09/19/23 15:21 15:21 15:21 WBC 5.60 Hgb 12.5 Hct 38.0 Plt Count 90 L PT 16.2 H INR 1.49 APTT 35.9 Sodium 138 Potassium 4.0 BUN 9 Creatinine 0.67 Glucose 96 Assessment and Plan - Plan Fall: Will continue fall precaution. Will check vitamin D level. Hyperammonemia: Ammonia is 59. Will continue with lactulose. History of Liver cirrhosis: Likely due to hepatitis C and alcohol abuse. Will monitor LFTs. Right foot wound: Will continue wound care. History of polysubstance abuse: Patient has history of cocaine and amphetamine abuse along with alcohol abuse. History of seizure disorder: continue Keppra History of CVA: continue with antiplatelet therapy History of tobacco use: Will continue nicotine patch GI ppx: protonix DVT ppx: heparin. Code: full - Advance Directives Does patient have a Living Will: No Does patient have a Durable POA for Healthcare: No
[2023-09-19] MEDS: INSULIN REGULAR (HUMAN) 100 UNIT/ML SQ SCH (21:00)
[2023-09-19] MEDS ORDERED: HOME MED 1 EA UNK (Gabapentin [Gabapentin] 600 MG Tablet) PO SCH (21:00)
[2023-09-19] MEDS: levETIRAcetam 500 MG TAB PO SCH (21:16)
[2023-09-19] MEDS: GABAPENTIN 300 MG CAP PO SCH (21:16)
[2023-09-19] MEDS: ATORVASTATIN 40 MG TAB PO SCH (21:16)
[2023-09-19] MEDS: HYDROCODONE/APAP 5/325 MG TAB PO PRN (21:16)
[2023-09-19] MEDS: LACTULOSE 20 GM/30 ML UCUP PO SCH (21:17)
[2023-09-19 22:14] VITALS: BMI 34.4
[2023-09-19] MEDS: MELATONIN 3 MG TABLET PO ONE (23:17)
[2023-09-20] MEDS: HEPARIN 5000 UNIT/ML 1 ML VIAL SQ SCH (00:40)
[2023-09-20] MEDS: MORPHINE 2 MG/ML SYR IV ONE (00:41)
[2023-09-20 05:26] LABS: Absolute Basophils 0.1 K/uL (0-0.5); Absolute Eosinophils 0.2 K/uL (0-0.5); Absolute Monocytes 0.3 K/uL (0.1-1.3); Absolute Neutrophil 3.4 K/uL (1.8-8.0); Basophils % 1.4 % (0-1.3); Eosinophils % 3.3 % (0-4.4); Hematocrit 35.8 % (36.0-45.0); Hemoglobin 12.1 g/dL (12.0-15.0); Lymphocytes % 20.1 % (15.3-44.8); MCH 30.2 pg (27.0-35.0); MCHC 33.8 g/dL (32.0-36.0); MCV 89.4 fL (80-100); MPV 7.7 fL (7.6-11.3); Monocytes % 6.9 % (3.3-12.3); Neutrophils % 68.3 % (41.7-73.7); Nucleated Red Blood Cells % 0.3 % (0-0); Platelets 103 thou/uL (152-406); RBC Red Blood Cell Count 4.01 M/uL (3.86-4.86); Red Cell Distribution Width 20.5 % (12.1-15.2)
[2023-09-20 05:45] LABS: Albumin 1.8 g/dL (3.4-5.0); Albumin/Globulin Ratio 0.4 (1.1-1.8); Anion Gap 5.6 mEq/L (5.0-15.0); Bilirubin Total 0.6 mg/dL (0.2-1.0); Globulin 4.7 g/dL (2.3-3.5); Potassium 3.6 mEq/L (3.5-5.1); Protein, Total 6.5 g/dL (6.4-8.2)
[2023-09-20] MEDS: LEVOTHYROXINE SOD 0.125 MG TAB PO SCH (06:47)
[2023-09-20] MEDS: lamoTRIgine 25 MG TAB PO SCH (08:55)
--- NOTE | 2023-09-20 11:42 | P.DS ---
Admission Date: 09/19/23 Discharge Date: 09/20/23 Reason for Admission: fall and scalp laceration Procedures: Sutures placed in ED Brief History of Present Illness: Pt is a 63yo female with past medical history of ADD/ADHD, CVA, COPD, liver cirrhosis, Htn, Hypothyroidism, seizure, hepatitis and fibromyalgia who presents in the ER s/p fall at home. Pt reports tiarra she felt weak and fell of her bed. She landed on the left side of her body and sustained laceration on occipital part of her scalp. Her room mates discovered her covered in faeces and they brought her to the ER. Pt reports non-compliance with lactulose at home.Of note she was discharged from our service yesterday after she was treated for elevated ammonia. On admission, lab studies are unremarkable except ammonia of 59 and calcium of 7.6. The ER physician placed stitches on the scalp laceration and called medicine for admission. At bedside, pt is in NAD. She is AAOx3. Pt does not remember what happened. She denies any chest pain, SOB, fever, chills, nausea, vomiting, constipation, dysuria or leg edema but reports frequent stools. Hospital Course: Ms. Leo is alert, oriented x 3, in no distress. Awaiting repeat ammonia level. Pt will be able to go home this afternoon. <Priya Quigley - Last Filed: 09/20/23 12:13> Admission Date: 09/21/23 Discharge Date: 09/23/23 Brief History of Present Illness: - Physical Exam General: Alert, In no apparent distress, Oriented x3 HEENT: Atraumatic, Normocephalic, PERRLA Neck: Supple, 2+ carotid pulse no bruit Respiratory: Clear to auscultation bilaterally, Normal air movement, Diminished Cardiovascular: No edema, Normal pulses, Regular rate/rhythm, Normal S1 S2 Capillary refill: <2 Seconds Gastrointestinal: Normal bowel sounds, Soft and benign, Non-distended Musculoskeletal: No clubbing, No swelling Integumentary: No rashes, No breakdown Neurological: Normal speech, Normal strength at 5/5 x4 extr, Normal tone, Sensation intact Lymphatics: No axilla or inguinal lymphadenopathy Hospital Course: 63yo female with past medical history of ADD/ADHD, CVA, COPD, liver cirrhosis, Htn, Hypothyroidism, seizure, hepatitis and fibromyalgia who presents in the ER s/p fall at home. She was noted to have elevated ammonia. Abdominal ultrasound, no appreciated of ascites.plan to to discharge to [facility]. Patient to follow-up with PCP after discharge. Patient to discharge with GI for history of liver cirrhosis after discharge. Assessment Frequent falls Liver cirrhosis Hepatic encephalopathy Seizure disorder History of CVA Follow-up with GI after discharge Follow-up with PCP after discharge Continue home medicines as previously prescribed GOAL: Clear understanding of disease process INSTRUCTIONS: Physician Discharge Instructions: -Follow-up with PCP in 1 to 2 weeks -Please call Dr. Hopper at [phone] if any questions regarding hospital stay -Please call nursing station at [phone] if any nursing or medication questions -Return to the emergency room if symptoms worsen Diet: ADA, low sodium Activity: Fall precautions <Penny Jones - Last Filed: 09/23/23 16:21> Disposition: TRANSFER TO ALF Discharge Condition: GOOD Vital Signs/Physical Exam: Temp Pulse Resp BP Pulse Ox 96.9 F 79 18 102/66 90 L 09/20/23 08:00 09/20/23 08:00 09/20/23 09:54 09/20/23 08:00 09/20/23 09:54 General: Alert, Oriented x3 HEENT: Normocephalic Respiratory: Normal air movement Cardiovascular: Regular rate/rhythm Capillary refill: <2 Seconds Gastrointestinal: Soft and benign Musculoskeletal: No swelling Integumentary: No rashes, No cyanosis Neurological: Abnormal speech Lymphatics: No axilla or inguinal lymphadenopathy External genitalia: Deferred Rectal: Deferred Laboratory Data at Discharge: WBC 5.00 thou/uL (4.3-10.9) 09/20/23 04:37 Hgb 12.1 g/dL (12.0-15.0) 09/20/23 04:37 Hct 35.8 % (36.0-45.0) L 09/20/23 04:37 Plt Count 103 thou/uL (152-406) L 09/20/23 04:37 PT 16.2 SECONDS (9.5-12.5) H 09/19/23 15:21 INR 1.49 09/19/23 15:21 APTT 35.9 SECONDS (24.3-36.9) 09/19/23 15:21 Sodium 138 mEq/L (136-145) 09/20/23 04:21 Potassium 3.6 mEq/L (3.5-5.1) 09/20/23 04:21 BUN 10 mg/dL (7-18) 09/20/23 04:21 Creatinine 0.74 mg/dL (0.55-1.02) 09/20/23 04:21 Glucose 123 mg/dL (74-106) H 09/20/23 04:21 Total Bilirubin 0.6 mg/dL (0.2-1.0) 09/20/23 04:21 AST 64 U/L (15-37) H 09/20/23 04:21 ALT 35 U/L (13-56) 09/20/23 04:21 Alkaline Phosphatase 100 U/L (45-117) 09/20/23 04:21 <Quigley,Priya Chad - Last Filed: 09/20/23 12:13> Vital Signs/Physical Exam: Temp Pulse Resp BP Pulse Ox 96.8 F 88 16 92/62 98 09/23/23 12:00 09/23/23 12:00 09/23/23 14:31 09/23/23 12:00 09/23/23 14:31 Laboratory Data at Discharge: WBC 2.40 thou/uL (4.3-10.9) L 09/23/23 06:19 Hgb 11.6 g/dL (12.0-15.0) L 09/23/23 06:19 Hct 36.0 % (36.0-45.0) 09/23/23 06:19 Plt Count 76 thou/uL (152-406) L 09/23/23 06:19 PT 16.2 SECONDS (9.5-12.5) H 09/19/23 15:21 INR 1.49 09/19/23 15:21 APTT 35.9 SECONDS (24.3-36.9) 09/19/23 15:21 Sodium 139 mEq/L (136-145) 09/23/23 06:19 Potassium 2.9 mEq/L (3.5-5.1) L D 09/23/23 06:19 BUN 7 mg/dL (7-18) 09/23/23 06:19 Creatinine 0.82 mg/dL (0.55-1.02) 09/23/23 06:19 Glucose 90 mg/dL (74-106) 09/23/23 06:19 Magnesium 1.6 mg/dL (1.6-2.4) 09/23/23 06:19 Total Bilirubin 0.4 mg/dL (0.2-1.0) 09/22/23 06:05 AST 68 U/L (15-37) H 09/22/23 06:05 ALT 34 U/L (13-56) 09/22/23 06:05 Alkaline Phosphatase 88 U/L (45-117) 09/22/23 06:05 <Penny Jones - Last Filed: 09/23/23 16:21> Diet: AHA Activity: Ad karina <Priya Quigley - Last Filed: 09/20/23 12:13> Activity: Fall precautions Physician Review: Patient Assessed, Agree with Above Assessment and Plan Time spent managing pt's care (in minutes): 55 <Penny Jones - Last Filed: 09/23/23 16:21> Home Medications: Gabapentin 600 mg PO TID 09/03/22 levETIRAcetam [Keppra*] 750 mg PO BID 10/27/22 Atorvastatin Calcium [Lipitor*] 40 mg PO BEDTIME #30 tab 11/04/22 Levothyroxine [Synthroid*] 0.125 mg PO DAILYAC #30 tab 11/04/22 Folic Acid 1 mg PO DAILY 04/04/23 Lamotrigine [Lamictal] 25 mg PO DAILY 04/04/23 Collagenase [Santyl Ointment*] 1 appl TOP DAILY #4 oz 07/26/23 Lactulose [Cephulac*] 30 ml PO BID #8 oz 07/26/23 Meloxicam [Mobic] 7.5 mg PO BIDP PRN 09/20/23 Hydrocodone 5/APAP 325 [Ney 5/325*] 1 tab PO Q6H PRN tab 09/23/23 Insulin -Regular Human [Novolin -R*] See Protocol SQ ACHS ml 09/23/23 Ondansetron [Zofran*] 4 mg IV Q6HP PRN vial 09/23/23 lamoTRIgine [Lamictal*] 25 mg PO DAILY tab 09/23/23 Physician Discharge Instructions: Transfer to: [address] [address] P:[phone]/ F:[phone] Referral Followup: [facility] [Primary Care Provider] -
--- NOTE | 2023-09-20 17:29 | P.PN ---
Subjective Date of Service: 09/20/23 Chief Complaint: fall and scalp laceration Subjective: No C/O voiced (pt is happy, talking with the nursing staff, calling them her Daughters) <Priya Quigley - Last Filed: 09/20/23 17:30> Date of Service: 09/20/23 <Berna Dempsey C - Last Filed: 09/20/23 21:40> Review of Systems 10-point ROS is otherwise unremarkable General: As per HPI Neurological: As per HPI <Priya Quigley - Last Filed: 09/20/23 17:30> Physical Examination - Vital Signs Temperature: 96.9 F Blood Pressure: 114/61 Pulse: 81 Respirations: 20 Pulse Ox (%): 98 - Physical Exam General: Alert, Oriented x3, Cooperative HEENT: Normocephalic Neck: JVD not distended Respiratory: Normal air movement Cardiovascular: Normal pulses, Regular rate/rhythm Capillary refill: <2 Seconds Gastrointestinal: Soft and benign, Non-distended Musculoskeletal: No clubbing Integumentary: No rashes, Other (jaundiced/tanned appearance) Neurological: Other (at pt's norm, right facial droop, awake and then somnolent) Lymphatics: No axilla or inguinal lymphadenopathy External genitalia: Deferred Rectal: Deferred <Priya Quigley - Last Filed: 09/20/23 17:30> Assessment And Plan - Plan Assessment and Plan - Plan Fall: Will continue fall precaution. Will check vitamin D level. Hyperammonemia: Ammonia is 59. Will continue with lactulose. Ammonia elevated, will add Rifaximin History of Liver cirrhosis: Likely due to hepatitis C and alcohol abuse. Will monitor LFTs. Right foot wound: Will continue wound care. History of polysubstance abuse: Patient has history of cocaine and amphetamine abuse along with alcohol abuse. History of seizure disorder: continue Keppra History of CVA: continue with antiplatelet therapy History of tobacco use: Will continue nicotine patch GI ppx: protonix DVT ppx: heparin. Code: full - Advance Directives Does patient have a Living Will: No Does patient have a Durable POA for Healthcare: No <Marsha Quigleyy Chad - Last Filed: 09/20/23 17:30> - Plan Pt seen and examined. I agree with the note by the EXPLORATION MANAGER. Ammonia increased from 59 to 138, Will continue lactulose and trend ammonia. <Berna Dempsey - Last Filed: 09/20/23 21:40>
[2023-09-20] MEDS: Rifaximin 550 MG Tab PO SCH (21:00)
[2023-09-21 03:09] LABS: Absolute Eosinophils 0.1 K/uL (0-0.5); Absolute Lymphocytes (CBC) 0.7 K/uL (0.7-4.9); Absolute Monocytes 0.2 K/uL (0.1-1.3); Absolute Neutrophil 1.7 K/uL (1.8-8.0); Basophils % 0.5 % (0-1.3); Hematocrit 35.7 % (36.0-45.0); Hemoglobin 11.8 g/dL (12.0-15.0); Lymphocytes % 25.4 % (15.3-44.8); MCH 29.9 pg (27.0-35.0); MCHC 33.2 g/dL (32.0-36.0); MCV 90.1 fL (80-100); MPV 7.8 fL (7.6-11.3); Monocytes % 8.2 % (3.3-12.3); Neutrophils % 61.9 % (41.7-73.7); Nucleated Red Blood Cells % 0.6 % (0-0); Platelets 101 thou/uL (152-406); RBC Red Blood Cell Count 3.96 M/uL (3.86-4.86); Red Cell Distribution Width 20.9 % (12.1-15.2)
[2023-09-21 03:21] LABS: Albumin 1.7 g/dL (3.4-5.0); Albumin/Globulin Ratio 0.4 (1.1-1.8); Bilirubin Total 0.4 mg/dL (0.2-1.0); Globulin 4.6 g/dL (2.3-3.5); Protein, Total 6.3 g/dL (6.4-8.2)
[2023-09-21] MEDS: LACTULOSE 20 GM/30 ML UCUP PO SCH (09:20)
[2023-09-21] MEDS: Ringers Lactate 1,000 ML IV SCH (09:27)
--- NOTE | 2023-09-21 10:52 | P.PN ---
Subjective Date of Service: 09/21/23 Chief Complaint: fall and scalp laceration Pt is resting comfortably in bed. She was sleeping when I saw her. Ammonia level is elevated 131 <- 138<- 59. Continue lactulose q4h. No other complaints. Review of Systems General: Unremarkable Eyes: Unremarkable ENT: Unremarkable Respiratory: Unremarkable Cardiovascular: Unremarkable Gastrointestinal: Unremarkable Genitourinary: Unremarkable Musculoskeletal: Unremarkable Integumentary: Unremarkable Neurological: Unremarkable Lymphatics: Unremarkable Physical Examination - Vital Signs Temperature: 97 F Blood Pressure: 94/67 Pulse: 74 Respirations: 19 Pulse Ox (%): 99 - Physical Exam General: Alert, In no apparent distress, Oriented x3 HEENT: Atraumatic, Normocephalic, PERRLA Neck: Supple, 2+ carotid pulse no bruit Respiratory: Clear to auscultation bilaterally, Normal air movement, Diminished Cardiovascular: No edema, Normal pulses, Regular rate/rhythm, Normal S1 S2 Capillary refill: <2 Seconds Gastrointestinal: Normal bowel sounds, Soft and benign, Non-distended Musculoskeletal: No clubbing, No swelling Integumentary: No rashes, No breakdown Neurological: Normal speech, Normal strength at 5/5 x4 extr, Normal tone, Sensation intact Lymphatics: No axilla or inguinal lymphadenopathy Assessment And Plan - Plan Fall: Will continue fall precaution. Will check vitamin D level. Hyperammonemia: Ammonia is 131 <- 138<- 59. Will continue with lactulose 20mg po Q4h. History of Liver cirrhosis: Likely due to hepatitis C and alcohol abuse. Will monitor LFTs. Right foot wound: Will continue wound care. History of polysubstance abuse: Patient has history of cocaine and amphetamine abuse along with alcohol abuse. History of seizure disorder: continue Keppra History of CVA: continue with antiplatelet therapy History of tobacco use: Will continue nicotine patch GI ppx: protonix DVT ppx: heparin. Code: full
[2023-09-22] MEDS: ACETAMINOPHEN 500 MG TAB PO PRN (00:49)
[2023-09-22 06:35] LABS: Absolute Eosinophils 0.1 K/uL (0-0.5); Absolute Lymphocytes (CBC) 0.7 K/uL (0.7-4.9); Absolute Monocytes 0.4 K/uL (0.1-1.3); Absolute Neutrophil 1.4 K/uL (1.8-8.0); Basophils % 0.6 % (0-1.3); Eosinophils % 3.6 % (0-4.4); Hematocrit 33.6 % (36.0-45.0); Hemoglobin 11.1 g/dL (12.0-15.0); Lymphocytes % 27.5 % (15.3-44.8); MCH 30.1 pg (27.0-35.0); MCHC 33.2 g/dL (32.0-36.0); MCV 90.9 fL (80-100); Monocytes % 15.2 % (3.3-12.3); Neutrophils % 53.1 % (41.7-73.7); Nucleated Red Blood Cells % 0.2 % (0-0); Platelets 92 thou/uL (152-406); Red Cell Distribution Width 21.3 % (12.1-15.2)
[2023-09-22 06:42] LABS: Albumin 1.7 g/dL (3.4-5.0); Albumin/Globulin Ratio 0.4 (1.1-1.8); Anion Gap 2.3 mEq/L (5.0-15.0); Bilirubin Total 0.4 mg/dL (0.2-1.0); Globulin 4.5 g/dL (2.3-3.5); Potassium 4.3 mEq/L (3.5-5.1); Protein, Total 6.2 g/dL (6.4-8.2)
--- NOTE | 2023-09-22 08:53 | P.PN ---
Subjective Date of Service: 09/22/23 Chief Complaint: fall and scalp laceration 63yo female with past medical history of ADD/ADHD, CVA, COPD, liver cirrhosis, Htn, Hypothyroidism, seizure, hepatitis and fibromyalgia who presents in the ER s/p fall at home. Noted elevated ammonia, likely secondary to liver disease history of polysubstance abuse, seizure disorder - Physical Exam General: Alert, In no apparent distress, Oriented x3 HEENT: Atraumatic, Normocephalic, PERRLA Neck: Supple, 2+ carotid pulse no bruit Respiratory: Clear to auscultation bilaterally, Normal air movement, Diminished Cardiovascular: No edema, Normal pulses, Regular rate/rhythm, Normal S1 S2 Capillary refill: <2 Seconds Gastrointestinal: Normal bowel sounds, Soft and benign, Non-distended Musculoskeletal: No clubbing, No swelling Integumentary: No rashes, No breakdown Neurological: Normal speech, Normal strength at 5/5 x4 extr, Normal tone, Sensation intact Lymphatics: No axilla or inguinal lymphadenopathy Review of Systems Per HPI Physical Examination - Vital Signs Temperature: 97.6 F Blood Pressure: 106/58 Pulse: 84 Respirations: 20 Pulse Ox (%): 91 Assessment And Plan - Plan Assessment plan Hepatic encephalopathy Hyperammonemia: Ammonia is 59. Will continue with lactulose. 09/21 abdominal ultrasound to evaluate for ascites FINDINGS: No appreciable ascites. No abnormal fluid collections. Bowel gas obscures evaluation. IMPRESSION: No ascites. Bowel gas obscures evaluation. Frequent falls PT eval History of Liver cirrhosis: Likely due to hepatitis C and alcohol abuse. Will monitor LFTs. Right foot wound: Will continue wound care. History of polysubstance abuse: Patient has history of cocaine and amphetamine abuse along with alcohol abuse. History of seizure disorder: continue Keppra History of CVA: continue with antiplatelet therapy History of tobacco use: Will continue nicotine patch GI ppx: protonix DVT ppx: heparin. Code: full Discharge Plan: Home - Code Status/Comfort Care Code Status: Full Code Critical Care: No Time Spent Managing PTS Care (In Minutes): 35
[2023-09-22] MEDS: FENTANYL CITR 100 MCG/2 ML IV ONE (13:10)
--- NOTE | 2023-09-22 13:38 | RAD REPORT ---
EXAM DESCRIPTION: US - Abdomen Exam Limited - 09/22/2023 1:25 pm CLINICAL HISTORY: ASCITES COMPARISON: Abdomen Pelvis W Contrast dated 01/22/2022 TECHNIQUE: Sonographic limited grayscale and color flow images of the 4 abdominal quadrants were ob tained. FINDINGS: No appreciable ascites. No abnormal fluid collections. Bowel gas obscures evaluation. IMPRESSION: No ascites. Bowel gas obscures evaluation.
[2023-09-22] MEDS: ALBUMIN HUMAN 25% 12.5 GM, FUROSEMIDE 100 MG in NA CHLORIDE 0.9% 40 ML IV SCH (15:03)
[2023-09-22] MEDS: Ringers Lactate 1,000 ML IV SCH (15:03)
[2023-09-23 07:04] LABS: Absolute Eosinophils 0.1 K/uL (0-0.5); Absolute Lymphocytes (CBC) 0.5 K/uL (0.7-4.9); Absolute Monocytes 0.4 K/uL (0.1-1.3); Absolute Neutrophil 1.4 K/uL (1.8-8.0); Basophils % 1.5 % (0-1.3); Eosinophils % 2.1 % (0-4.4); Hemoglobin 11.6 g/dL (12.0-15.0); Lymphocytes % 20.9 % (15.3-44.8); MCH 29.5 pg (27.0-35.0); MCHC 32.1 g/dL (32.0-36.0); MCV 91.7 fL (80-100); MPV 8.3 fL (7.6-11.3); Monocytes % 16.5 % (3.3-12.3); Nucleated Red Blood Cells % 0.1 % (0-0); Platelets 76 thou/uL (152-406); RBC Red Blood Cell Count 3.93 M/uL (3.86-4.86); Red Cell Distribution Width 20.9 % (12.1-15.2)
[2023-09-23 07:44] LABS: Anion Gap 6.9 mEq/L (5.0-15.0); BUN Blood Urea Nitrogen 7 mg/dL (7-18); Glomerular Filtration Rate 80 ml/min (=/>90); Glucose Level 90 mg/dL (74-106); Potassium 2.9 mEq/L (3.5-5.1); Sodium Level 139 mEq/L (136-145)
[2023-09-23 07:45] LABS: Bicarbonate > 45 mEq/L (21-32); Magnesium 1.6 mg/dL (1.6-2.4)
[2023-09-23 08:32] LABS: Anisocytosis 1+; Blood Morphology Comment NOTED (NOT SEEN); Platelet Estimate DECR; White Blood Cell Scan OK (OK)
[2023-09-23 22:35] VITALS: BP 102/59; TEMP 98.5
[2023-09-23 23:10] VITALS: O2SAT 96
== END 2023-09-23 22:40 | DRG 642 ==
LOC: ER 12:51 → ERHOLD 17:37 → 4TH 20:23 → OBSVTOIN 09-21 12:30 → INTOOBSV 09-21 12:30
PROVIDERS: ADMIT Hospitalist; ATTEND Hospitalist
DX: E72.20 Disorder of urea cycle metabolism, unspecified (principal); I69.954 Hemiplegia and hemiparesis following unspecified cerebrovascular disease affecting left non-dominant side; S01.01XA Laceration without foreign body of scalp, initial encounter; K76.82 Hepatic encephalopathy; I10 Essential (primary) hypertension; E03.9 Hypothyroidism, unspecified; M79.7 Fibromyalgia; J44.9 Chronic obstructive pulmonary disease, unspecified; F10.10 Alcohol abuse, uncomplicated; K70.30 Alcoholic cirrhosis of liver without ascites; G40.909 Epilepsy, unspecified, not intractable, without status epilepticus; F17.210 Nicotine dependence, cigarettes, uncomplicated; I25.2 Old myocardial infarction; B19.20 Unspecified viral hepatitis C without hepatic coma; R29.6 Repeated falls; Z88.0 Allergy status to penicillin; Z60.2 Problems related to living alone; Z79.4 Long term (current) use of insulin; Z91.81 History of falling; Z98.51 Tubal ligation status; Z79.890 Hormone replacement therapy; Z79.899 Other long term (current) drug therapy; Z91.148 Patient's other noncompliance with medication regimen for other reason; W06.XXXA Fall from bed, initial encounter; Y93.9 Activity, unspecified; Y92.013 Bedroom of single-family (private) house as the place of occurrence of the external cause; Y99.9 Unspecified external cause status
CPT/HCPCS: 36415; 51702; 70450; 71260; 72125; 74177; 76705; 80048; 80053; 81003; 82140; 82306; 82947; 83735; 85025; 85610; 85730; 87070; 87205; 93005; 97110; 97161; 97530; 99285; G0378; J2270; J2405; J3010; J7040; J7120; P9047; Q9967